=== PATIENT | male | born 1945 | race Caucasian/White ===

== ENCOUNTER 2016-08-02 08:12 | Emergency (ER) | payer MEDICARE, MEDICAID ==
[2016-08-02] MEDS ORDERED: Aspirin Low Dose CHEW TAB* 81 MG PO ONE (08:42)
--- NOTE | 2016-08-02 09:07 | RAD ---
INDICATION: Chest pain COMPARISON: Most recent comparison chest x-rays July 01, 2016 TECHNIQUE: Single AP portable view of the chest was obtained. FINDINGS: Image quality is compromised due to the relative inferiority of a portable chest x-ray. The heart and mediastinum exhibit normal size and contour. Similar the previous chest x-ray hyperaerated. There is persistent patient and hemidiaphragm. Elsewhere the lungs are grossly clear. Small amount of right-sided costophrenic angle blunting could represent a small pleural effusion. Visualized bones are normal for the patient's age. IMPRESSION: Chronic findings as described above except for new right-sided costophrenic angle blunting which could represent a small pleural effusion.
[2016-08-02 09:17] LABS: Hematocrit 41 % (42-52); Hemoglobin 13.5 g/dl (14.0-18.0); Mean Corpuscular HGB Conc 33 g/dl (31-36); Mean Corpuscular Hemoglobin 31 pg (27-31); Mean Corpuscular Volume 93 fL (80-94); Mean Platelet Volume 7 um3 (7.4-10.4); Red Blood Count 4.38 10^6/ul (4.0-5.4); Red Cell Distribution Width 13 % (10.5-15)
[2016-08-02 09:47] LABS: Troponin I 0.01 ng/mL (<0.04)
[2016-08-02 09:48] LABS: Albumin 3.4 g/dL (3.2-5.2); Calcium 8.9 mg/dL (8.6-10.3); Globulin 2.6 g/dL (2-4); Potassium 4.2 mmol/L (3.5-5.0); Total Bilirubin 0.3 mg/dL (0.2-1.0)
[2016-08-02 09:55] LABS: TSH (Thyroid Stimulating Horm) 2.72 mcIU/mL (0.34-5.60)
[2016-08-02] MEDS ORDERED: NS 0.9% 1000 ML* 2,000 ML IV ONE (10:15)
[2016-08-02 10:40] LABS: EGFR African American 88.4 (>60); EGFR Non-African American 68.7 (>60)
[2016-08-02 11:01] VITALS: BP 133/73
[2016-08-02] MEDS ORDERED: NS 0.9% 1000 ML* 1,000 ML IV ONE (13:26)
[2016-08-02 14:36] LABS: Urine Bilirubin Negative (Negative); Urine Glucose Negative (Negative); Urine Nitrite Negative (Negative)
--- NOTE | 2016-08-02 15:04 | ED ---
Quentin Talbert Karl, scribed for Dorian Garcia MD on 08/02/16 at 0837 . Complex/Multi-Sys Presentation - HPI Summary HPI Summary: Pt is a 65 y/o male BIBA that presents to the ED c/o epigastric/CP that causes him to feel a near-syncopal sensation for the past several days. Pt also reported numbness and tingling in his face, generalized weakness, instability for several weeks. Pt reported the pain as a tightness/pressure in his chest and also stated that he has been unstable/not walking straight for past few weeks. Pt stated that yesterday he felt nauseas and was sweating but these symptoms have since subsided. Pt denied any current nausea and denied any SOB, cough, urinary symptoms, problems with BM's, and appetite changes. - History Of Current Complaint Time Seen by Provider: 08/02/16 08:22 Hx Obtained From: Patient Onset/Duration: Gradual Onset, Lasting Weeks Timing: Intermittent, Lasting: Severity Currently: Moderate - abd pain at 6/10 Severity Initially: Moderate Location: Pain At: - epigastrium of abd Character: Pressure Associated Signs And Symptoms: Positive: Weakness, Chest Pain, Nausea, Abdominal Pain, Diaphoresis. Negative: SOB, Cough, Decreased Oral Intake - Allergies/Home Medications Allergies/Adverse Reactions: Allergies Allergy/AdvReac Type Severity Reaction Status Date / Time Codeine Allergy Unknown Verified 03/08/16 10:20 Reaction Details Ibuprofen Allergy Unknown Verified 03/08/16 10:20 Reaction Details Morphine Allergy Unknown Verified 03/08/16 10:20 Reaction Details Rosuvastatin [From Crestor] Allergy Unknown Verified 03/08/16 10:20 Reaction Details PMH/Surg Hx/FS Hx/Imm Hx Endocrine/Hematology History: Denies: Hx Diabetes Cardiovascular History: Reports: Hx Angina, Hx Hypertension Denies: Hx Congestive Heart Failure GI History: Reports: Hx Hiatal Hernia History: Denies: Hx Dialysis, Hx Renal Disease Musculoskeletal History: Reports: Hx Arthritis Sensory History: Reports: Hx Contacts or Glasses Opthamlomology History: Reports: Hx Contacts or Glasses Neurological History: Reports: Hx Developmental Delay Psychiatric History: Reports: Hx Anxiety - Immunization History Date of Tetanus Vaccine: up to date - Family History Known Family History: Positive: Cardiac Disease Negative: Hypertension, Diabetes - Social History Alcohol Use: None Hx Substance Use: No Substance Use Type: Reports: None Hx Tobacco Use: Yes Smoking Status (MU): Former Smoker Review of Systems Positive: Skin Diaphoresis Eyes: Negative ENT: Negative Positive: Chest Pain Negative: Shortness Of Breath, Cough Positive: Abdominal Pain, Nausea Positive: no symptoms reported Musculoskeletal: Negative Skin: Negative Positive: Weakness, Paresthesia, Numbness Positive: Anxious All Other Systems Reviewed And Are Negative: Yes Physical Exam Triage Information Reviewed: Yes Vital Signs On Initial Exam: Initial Vitals Temp Pulse Resp BP Pulse Ox 97.2 F 130 15 117/74 97 08/02/16 08:45 08/02/16 08:45 08/02/16 08:45 08/02/16 08:45 08/02/16 08:45 Appearance: Positive: Well-Appearing, No Pain Distress Skin: Positive: Warm, Skin Color Reflects Adequate Perfusion, Dry Head/Face: Positive: Normal Head/Face Inspection Eyes: Positive: Normal ENT: Positive: Normal ENT inspection Neck: Positive: Supple, Nontender Respiratory/Lung Sounds: Positive: Clear to Auscultation, Breath Sounds Present Cardiovascular: Positive: Tachycardia - at 130 bpm Abdomen Description: Positive: Nontender, Soft Bowel Sounds: Positive: Present Musculoskeletal: Positive: Normal Neurological: Positive: Normal Psychiatric: Positive: Anxious Diagnostics - Vital Signs Vital Signs Temp Pulse Resp BP Pulse Ox 08/02/16 10:59 114 10 133/73 98 08/02/16 08:45 97.2 F 130 15 117/74 97 - Laboratory Lab Results: Lab Results 08/02/16 08/02/16 08/02/16 Range/Units 09:06 09:06 09:06 WBC 10.0 (3.5-10.8) 10^3/ul RBC 4.38 (4.0-5.4) 10^6/ul Hgb 13.5 L (14.0-18.0) g/dl Hct 41 L (42-52) % MCV 93 (80-94) fL MCH 31 (27-31) pg MCHC 33 (31-36) g/dl RDW 13 (10.5-15) % Plt Count 217 (150-450) 10^3/ul MPV 7 L (7.4-10.4) um3 Neut % (Auto) 78.2 (38-83) % Lymph % (Auto) 11.7 L (25-47) % [place] % (Auto) 6.8 (1-9) % Eos % (Auto) 2.9 (0-6) % Baso % (Auto) 0.4 (0-2) % Absolute Neuts (auto) 7.8 H (1.5-7.7) 10^3/ul Absolute Lymphs (auto) 1.2 (1.0-4.8) 10^3/ul Absolute Monos (auto) 0.7 (0-0.8) 10^3/ul Absolute Eos (auto) 0.3 (0-0.6) 10^3/ul Absolute Basos (auto) 0 (0-0.2) 10^3/ul Absolute Nucleated RBC 0 10^3/ul Nucleated RBC % 0 INR (Anticoag Therapy) 0.92 (0.89-1.11) Sodium 137 (133-145) mmol/L Potassium 4.2 (3.5-5.0) mmol/L Chloride 105 (101-111) mmol/L Carbon Dioxide 23 (22-32) mmol/L Anion Gap 9 (2-11) mmol/L BUN 15 (6-24) mg/dL Creatinine 1.07 (0.67-1.17) mg/dL Est GFR ( Amer) 88.4 (>60) Est GFR (Non-Af Amer) 68.7 (>60) BUN/Creatinine Ratio 14.0 (8-20) Glucose 114 H (70-100) mg/dL Lactic Acid (0.5-2.0) mmol/L Calcium 8.9 (8.6-10.3) mg/dL Total Bilirubin 0.30 (0.2-1.0) mg/dL AST 21 (13-39) U/L ALT 22 (7-52) U/L Alkaline Phosphatase 73 (34-104) U/L Troponin I 0.01 (<0.04) ng/mL Total Protein 6.0 L (6.4-8.9) g/dL Albumin 3.4 (3.2-5.2) g/dL Globulin 2.6 (2-4) g/dL Albumin/Globulin Ratio 1.3 (1-3) TSH 2.72 (0.34-5.60) mcIU/mL Urine Color Urine Appearance Urine pH (5-9) Ur Specific [place] (1.010-1.030) Urine Protein (Negative) Urine Ketones (Negative) Urine Blood (Negative) Urine Nitrate (Negative) Urine Bilirubin (Negative) Urine Urobilinogen (Negative) Ur Leukocyte Esterase (Negative) Urine Glucose (Negative) Urine Ascorbic Acid (Negative) 08/02/16 08/02/16 Range/Units 09:06 14:27 WBC (3.5-10.8) 10^3/ul RBC (4.0-5.4) 10^6/ul Hgb (14.0-18.0) g/dl Hct (42-52) % MCV (80-94) fL MCH (27-31) pg MCHC (31-36) g/dl RDW (10.5-15) % Plt Count (150-450) 10^3/ul MPV (7.4-10.4) um3 Neut % (Auto) (38-83) % Lymph % (Auto) (25-47) % [place] % (Auto) (1-9) % Eos % (Auto) (0-6) % Baso % (Auto) (0-2) % Absolute Neuts (auto) (1.5-7.7) 10^3/ul Absolute Lymphs (auto) (1.0-4.8) 10^3/ul Absolute Monos (auto) (0-0.8) 10^3/ul Absolute Eos (auto) (0-0.6) 10^3/ul Absolute Basos (auto) (0-0.2) 10^3/ul Absolute Nucleated RBC 10^3/ul Nucleated RBC % INR (Anticoag Therapy) (0.89-1.11) Sodium (133-145) mmol/L Potassium (3.5-5.0) mmol/L Chloride (101-111) mmol/L Carbon Dioxide (22-32) mmol/L Anion Gap (2-11) mmol/L BUN (6-24) mg/dL Creatinine (0.67-1.17) mg/dL Est GFR ( Amer) (>60) Est GFR (Non-Af Amer) (>60) BUN/Creatinine Ratio (8-20) Glucose (70-100) mg/dL Lactic Acid 1.8 (0.5-2.0) mmol/L Calcium (8.6-10.3) mg/dL Total Bilirubin (0.2-1.0) mg/dL AST (13-39) U/L ALT (7-52) U/L Alkaline Phosphatase (34-104) U/L Troponin I (<0.04) ng/mL Total Protein (6.4-8.9) g/dL Albumin (3.2-5.2) g/dL Globulin (2-4) g/dL Albumin/Globulin Ratio (1-3) TSH (0.34-5.60) mcIU/mL Urine Color Yellow Urine Appearance Cloudy Urine pH 5.0 (5-9) Ur Specific [place] 1.008 L (1.010-1.030) Urine Protein Negative (Negative) Urine Ketones Negative (Negative) Urine Blood Negative (Negative) Urine Nitrate Negative (Negative) Urine Bilirubin Negative (Negative) Urine Urobilinogen Negative (Negative) Ur Leukocyte Esterase Negative (Negative) Urine Glucose Negative (Negative) Urine Ascorbic Acid * H (Negative) Result Diagrams: 08/02/16 09:06 08/02/16 09:06 Lab Statement: Any lab studies that have been ordered have been reviewed, and results considered in the medical decision making process. - Radiology CXR Xray Interpretation: Positive (See Comments) Radiology Interpretation Completed By: Radiologist - FINDINGS: Image quality is compromised due to the relative inferiority of a portable chest x-ray. The heart and mediastinum exhibit normal size and contour. Similar the previous chest x-ray hyperaerated. There is persistent patient and hemidiaphragm. Elsewhere the lungs are grossly clear. Small amount of right-sided costophrenic angle blunting could represent a small pleural effusion. Visualized bones are normal for the patient's age. IMPRESSION: Chronic findings as described above except for new right-sided costophrenic angle blunting which could represent a small pleural effusion. - EKG 08:41 Cardiac Rate: Tachycardia EKG Rhythm: Sinus Tachycardia - at 122 bpm Complex Multi-Symp Course/Dx Course Of Treatment: Mr. Gasca is very vague about his symptoms. At times he C/ O a chest pain like syndrome and at other times he C/O wandering numbness or vague dizziness. He felt very improved after IV fluids. He presented tachycardic at about 125. He says he normally runs about 110. His tachycardia improved mostly also with fluids. I think he is stable for D/C if his repeat troponin is negative. - Diagnoses Provider Diagnoses: Weakness - Physician Notifications Discussed Care Of Patient With: Dr. Llamas Time Discussed With Above Provider: 15:00 - Change of shift Discharge - Discharge Plan Condition: Stable Disposition: HOME The documentation as recorded by the Quentin turner Karl accurately reflects the service I personally performed and the decisions made by me, Dorian Garcia MD.
== END 2016-08-02 16:32 | disposition home or self-care (01) ==
LOC: ED 08:12
DX: R53.1 Weakness (principal); Z87.891 Personal history of nicotine dependence; I20.9 Angina pectoris, unspecified; R62.50 Unspecified lack of expected normal physiological development in childhood; F41.9 Anxiety disorder, unspecified; Z88.5 Allergy status to narcotic agent
CPT/HCPCS: 36415; 71010; 80053; 81003; 83605; 84443; 84484; 85025; 85610; 93005; 99282; A9270-GY

== ENCOUNTER 2016-08-04 07:19 | Emergency (ER) | payer MEDICARE, MEDICAID ==
[2016-08-04] MEDS ORDERED: NS 0.9% 1000 ML* 2,000 ML IV ONE (07:59)
[2016-08-04] MEDS ORDERED: Aspirin TAB* 325 MG PO ONE (07:59)
[2016-08-04 08:24] LABS: Hematocrit 38 % (42-52); Hemoglobin 12.5 g/dl (14.0-18.0); Mean Corpuscular HGB Conc 33 g/dl (31-36); Mean Corpuscular Hemoglobin 31 pg (27-31); Mean Corpuscular Volume 92 fL (80-94); Mean Platelet Volume 7 um3 (7.4-10.4); Red Blood Count 4.08 10^6/ul (4.0-5.4); Red Cell Distribution Width 13 % (10.5-15); White Blood Count 8.4 10^3/ul (3.5-10.8)
--- NOTE | 2016-08-04 08:37 | RAD ---
HISTORY: Right leg swelling COMPARISONS: None relevant TECHNIQUE: Multiple transverse and longitudinal ultrasound images were obtained of the right lower extremity from the level of the common femoral vein inferiorly through to the infrapopliteal veins using grayscale, color Doppler, and spectral Doppler imaging with and without compression and with augmentation. Comparison images were obtained of the contralateral common femoral vein. FINDINGS: VEINS: The venous system of the right lower extremity is compressible throughout its course, with normal flow on color Doppler imaging and normal response to augmentation on spectral Doppler imaging. SOFT TISSUES: Unremarkable. OTHER FINDINGS: None. IMPRESSION: NO RIGHT LOWER EXTREMITY DEEP VEIN THROMBOSIS
[2016-08-04 08:41] LABS: Albumin 3.3 g/dL (3.2-5.2); BUN/Creatinine Ratio 11.5 (8-20); C Reactive Protein 2.63 mg/L (< 5.00); Calcium 8.6 mg/dL (8.6-10.3); EGFR African American 100.2 (>60); EGFR Non-African American 77.9 (>60); Globulin 2.1 g/dL (2-4); HDL Cholesterol 42.8 mg/dL; Potassium 4.2 mmol/L (3.5-5.0); Total Bilirubin 0.3 mg/dL (0.2-1.0); Total Protein 5.4 g/dL (6.4-8.9); Troponin I 0.01 ng/mL (<0.04)
--- NOTE | 2016-08-04 09:07 | RAD ---
HISTORY: CHF, pneumonia COMPARISONS: 08/02/2016 VIEWS:1: Single frontal portable view of the chest at 8:42 AM FINDINGS: LINES AND TUBES: None. CARDIOMEDIASTINAL SILHOUETTE: The cardiomediastinal silhouette is normal for portable technique. PLEURA: The costophrenic angles are sharp. No pleural abnormalities are noted. LUNG PARENCHYMA: The lungs are clear. ABDOMEN: The upper abdomen is clear. There is no subphrenic gas. BONES AND SOFT TISSUES: Degenerative changes are noted IMPRESSION: NO ACTIVE CARDIOPULMONARY DISEASE.
--- NOTE | 2016-08-04 09:08 | RAD ---
HISTORY: Fall, right knee swelling COMPARISONS: None VIEWS: 5, Frontal, lateral, axial, and oblique views of the right knee FINDINGS: BONE DENSITY: Normal. BONES: There is no displaced fracture. JOINTS: There is mild tricompartmental osteoarthritis. There is no suprapatellar joint effusion or lipohemarthrosis. ALIGNMENT: There is no dislocation. SOFT TISSUES: Unremarkable. OTHER FINDINGS: None. IMPRESSION: NO ACUTE OSSEOUS INJURY. IF SYMPTOMS PERSIST, RECOMMEND REPEAT IMAGING.
--- NOTE | 2016-08-04 09:18 | RAD ---
HISTORY: Right-sided numbness and slurred speech COMPARISONS: None TECHNIQUE: Multiple contiguous axial CT scans were obtained of the head without intravenous contrast. FINDINGS: HEMORRHAGE/INFARCT: There is no hemorrhage or acute infarct. MASSES/SHIFT: There is no mass or shift. EXTRA-AXIAL SPACES: There are no extra-axial fluid collections. SULCI AND VENTRICLES: The sulci and ventricles are normal in size and position for the patient's stated age. CEREBRUM: There are no focal parenchymal abnormalities. BRAINSTEM: There are no focal parenchymal abnormalities. CEREBELLUM: There are no focal parenchymal abnormalities. VESSELS: The vessels are grossly normal. PARANASAL SINUSES: The paranasal sinuses are clear. ORBITS: The orbits are unremarkable. BONES AND SOFT TISSUE: No bone or soft tissue abnormalities are noted. OTHER: None IMPRESSION: NO ACUTE INTRACRANIAL PATHOLOGY.
--- NOTE | 2016-08-04 09:21 | RAD ---
HISTORY: Right upper arm pain COMPARISONS: None VIEWS: 3, Frontal and lateral views of the right forearm FINDINGS: BONE DENSITY: There is diffuse osteopenia. BONES: There is no displaced fracture. JOINTS: There is osteoarthritis of the first ALIGNMENT: There is no dislocation. SOFT TISSUES: Unremarkable. OTHER FINDINGS: None. IMPRESSION: 1. OSTEOPENIA. 2. NO ACUTE OSSEOUS INJURY. THE DEGREE OF OSTEOPENIA MAY MAKE A NONDISPLACED FRACTURE RADIOGRAPHICALLY OCCULT. IF SYMPTOMS PERSIST, RECOMMEND REPEAT IMAGING.
--- NOTE | 2016-08-04 09:29 | RAD ---
Indication: Right arm pain. 2 views of the right upper arm demonstrates no fracture. Degenerative changes of the glenohumeral joint is noted. IMPRESSION: No definite humeral fracture is identified.
[2016-08-04 11:16] VITALS: BP 143/85
--- NOTE | 2016-08-04 11:45 | ED ---
Tatiana Talbert SooYoung, scribed for Sergio Freitas MD on 08/04/16 at 0743 . Complex/Multi-Sys Presentation - HPI Summary HPI Summary: A 70 y/o M VIRAL presents to ED with c/o RLE edema below knee onset yesterday 2099. He fell onto his knee two to three days ago and scraped it. Associated sx : general R-sided numbness, pain in RUE around bicep that radiates to hand as numbness, L facial numbness. He notes that he's been "slumped over" on his R side for the past few weeks. Denies numbness in L-side and L arm. Denies leg pain, abd pain, ZHAO, CP, SOB, fever, chills, n/v/d, difficulty finding words, dysphagia. Pt was seen in ED 2 days ago for similar sx. Pt is not on a blood thinner, former smoker, no EtOH, no drugs. Known hernia. Baseline speech slurring. Pt is scheduled to see Dr. Fong in August. Pt ambulates on his own. - History Of Current Complaint Time Seen by Provider: 08/04/16 07:20 Hx Obtained From: Patient, EMS, Medical Records Onset/Duration: Lasting Hours - ONSET 2099, Still Present Timing: Constant, Days - seen in ED two days ago for similar sx - Allergies/Home Medications Allergies/Adverse Reactions: Allergies Allergy/AdvReac Type Severity Reaction Status Date / Time Codeine Allergy Unknown Verified 03/08/16 10:20 Reaction Details Ibuprofen Allergy Unknown Verified 03/08/16 10:20 Reaction Details Morphine Allergy Unknown Verified 03/08/16 10:20 Reaction Details Rosuvastatin [From Crestor] Allergy Unknown Verified 03/08/16 10:20 Reaction Details PMH/Surg Hx/FS Hx/Imm Hx Previously Healthy: No Endocrine/Hematology History: Denies: Hx Diabetes Cardiovascular History: Reports: Hx Angina, Hx Hypertension Denies: Hx Congestive Heart Failure GI History: Reports: Hx Hiatal Hernia History: Denies: Hx Dialysis, Hx Renal Disease Musculoskeletal History: Reports: Hx Arthritis Sensory History: Reports: Hx Contacts or Glasses Opthamlomology History: Reports: Hx Contacts or Glasses Neurological History: Reports: Hx Developmental Delay Psychiatric History: Reports: Hx Anxiety - Immunization History Date of Tetanus Vaccine: up to date Infectious Disease History: Denies: Traveled Outside the [place] in Last 30 Days - Family History Known Family History: Positive: Cardiac Disease Negative: Hypertension, Diabetes - Social History Occupation: Retired Lives: Alone Alcohol Use: None Hx Substance Use: No Substance Use Type: Reports: None Hx Tobacco Use: Yes Smoking Status (MU): Former Smoker Review of Systems Negative: Fever, Chills Positive: Other - neg: dysphagia Negative: Chest Pain Negative: Shortness Of Breath Negative: Abdominal Pain, Vomiting, Diarrhea, Nausea Positive: Other - pos: upper R arm pain; neg: leg pain Neurological: Other - neg: difficulty finding words Positive: Numbness - pos: R-side, R hand, L face, ; neg: L-side, L-arm. Negative: Headache All Other Systems Reviewed And Are Negative: Yes Physical Exam Triage Information Reviewed: Yes Vital Signs On Initial Exam: Initial Vitals BP 121/85 08/04/16 07:23 Vital Signs Reviewed: Yes Appearance: Positive: Well-Appearing, No Pain Distress, Well-Nourished Skin: Positive: Warm, Skin Color Reflects Adequate Perfusion, Dry Head/Face: Positive: Normal Head/Face Inspection - The head is normocephalic and atraumatic Eyes: Positive: EOMI, MADDY, Conjunctiva Clear, Other: - NML VISUAL ACUITY. Negative: Discharge ENT: Positive: Normal ENT inspection - nares patent, moist oral mucosa, external ears intact, ear canals patent and without drainage, Pharynx normal - no exudate, no erythema, TMs normal. Negative: Nasal drainage Neck: Positive: Supple, Nontender, Other: - FROM, no carotid bruits, no neck vein distension Respiratory/Lung Sounds: Positive: Clear to Auscultation, Breath Sounds Present - and equal and symmetrical, Other - chest non-tender Cardiovascular: Positive: Pulses are Symmetrical in both Upper and Lower Extremities, Tachycardia - SINUS TACHY, regular rhythm, Leg Edema Left - PITTING EDEMA, Leg Edema Right - PITTING EDEMA. Negative: Murmur, Rub Abdomen Description: Positive: Nontender, No Organomegaly, Soft Bowel Sounds: Positive: Present - in all four quadrant Musculoskeletal: Positive: Normal - good capillary refill, no back pain noted, no calf tenderness, Strength/ROM Intact - extremities non-tender with FROM, Edema Left - pitting edema, Edema Right - pitting edema, Other - ABRASION TO R KNEE; R KNEE WARM; GOOD PULSES DISTALLY; NO EFFUSION NOTED Neurological: Positive: Normal - symmetrical motor strength in all four extremities., Sensory/Motor Intact, Alert, Oriented to Person Place, Time, CN Intact II-III - CN II-XII INTACT, Reflexes Intact - DTR in all 4 extremities intact, Other - NEG: LE DRIFT. Negative: Babinski Left, Babinski Right, Babinski Bilateral, Heel to Toe, Finger to Nose, Pronator Drift Present Psychiatric: Positive: Affect/Mood Appropriate. Negative: Anxious, Depressed Diagnostics - Vital Signs Vital Signs Temp Pulse Resp BP Pulse Ox 08/04/16 11:00 104 16 143/85 98 08/04/16 10:50 121 19 151/97 98 08/04/16 10:30 112 20 126/75 98 08/04/16 10:22 118 21 146/84 97 08/04/16 10:00 103 17 98 08/04/16 09:38 111 21 97 08/04/16 09:25 103 18 99 08/04/16 08:00 114 20 97 08/04/16 07:59 98 08/04/16 07:34 97.7 F 111 20 120/78 96 08/04/16 07:30 113 16 120/78 98 08/04/16 07:24 113 19 98 08/04/16 07:23 121/85 - Laboratory Lab Results: Lab Results 08/04/16 08/04/16 08/04/16 Range/Units 08:15 08:15 08:15 WBC 8.4 (3.5-10.8) 10^3/ul RBC 4.08 (4.0-5.4) 10^6/ul Hgb 12.5 L (14.0-18.0) g/dl Hct 38 L (42-52) % MCV 92 (80-94) fL MCH 31 (27-31) pg MCHC 33 (31-36) g/dl RDW 13 (10.5-15) % Plt Count 205 (150-450) 10^3/ul MPV 7 L (7.4-10.4) um3 Neut % (Auto) 74.2 (38-83) % Lymph % (Auto) 14.5 L (25-47) % Hickman % (Auto) 6.2 (1-9) % Eos % (Auto) 4.4 (0-6) % Baso % (Auto) 0.7 (0-2) % Absolute Neuts (auto) 6.2 (1.5-7.7) 10^3/ul Absolute Lymphs (auto) 1.2 (1.0-4.8) 10^3/ul Absolute Monos (auto) 0.5 (0-0.8) 10^3/ul Absolute Eos (auto) 0.4 (0-0.6) 10^3/ul Absolute Basos (auto) 0.1 (0-0.2) 10^3/ul Absolute Nucleated RBC 0 10^3/ul Nucleated RBC % 0 INR (Anticoag Therapy) 0.94 (0.89-1.11) Sodium 137 (133-145) mmol/L Potassium 4.2 (3.5-5.0) mmol/L Chloride 106 (101-111) mmol/L Carbon Dioxide 24 (22-32) mmol/L Anion Gap 7 (2-11) mmol/L BUN 11 (6-24) mg/dL Creatinine 0.96 (0.67-1.17) mg/dL Est GFR ( Amer) 100.2 (>60) Est GFR (Non-Af Amer) 77.9 (>60) BUN/Creatinine Ratio 11.5 (8-20) Glucose 116 H (70-100) mg/dL Lactic Acid (0.5-2.0) mmol/L Calcium 8.6 (8.6-10.3) mg/dL Total Bilirubin 0.30 (0.2-1.0) mg/dL AST 23 (13-39) U/L ALT 21 (7-52) U/L Alkaline Phosphatase 68 (34-104) U/L Troponin I 0.01 (<0.04) ng/mL C-Reactive Protein 2.63 (< 5.00) mg/L B-Natriuretic Peptide ( - 100) pg/mL Total Protein 5.4 L (6.4-8.9) g/dL Albumin 3.3 (3.2-5.2) g/dL Globulin 2.1 (2-4) g/dL Albumin/Globulin Ratio 1.6 (1-3) Triglycerides 93 mg/dL Cholesterol 169 mg/dL LDL Cholesterol 108 mg/dL HDL Cholesterol 42.8 mg/dL 08/04/16 08/04/16 Range/Units 08:15 08:15 WBC (3.5-10.8) 10^3/ul RBC (4.0-5.4) 10^6/ul Hgb (14.0-18.0) g/dl Hct (42-52) % MCV (80-94) fL MCH (27-31) pg MCHC (31-36) g/dl RDW (10.5-15) % Plt Count (150-450) 10^3/ul MPV (7.4-10.4) um3 Neut % (Auto) (38-83) % Lymph % (Auto) (25-47) % Hickman % (Auto) (1-9) % Eos % (Auto) (0-6) % Baso % (Auto) (0-2) % Absolute Neuts (auto) (1.5-7.7) 10^3/ul Absolute Lymphs (auto) (1.0-4.8) 10^3/ul Absolute Monos (auto) (0-0.8) 10^3/ul Absolute Eos (auto) (0-0.6) 10^3/ul Absolute Basos (auto) (0-0.2) 10^3/ul Absolute Nucleated RBC 10^3/ul Nucleated RBC % INR (Anticoag Therapy) (0.89-1.11) Sodium (133-145) mmol/L Potassium (3.5-5.0) mmol/L Chloride (101-111) mmol/L Carbon Dioxide (22-32) mmol/L Anion Gap (2-11) mmol/L BUN (6-24) mg/dL Creatinine (0.67-1.17) mg/dL Est GFR ( Amer) (>60) Est GFR (Non-Af Amer) (>60) BUN/Creatinine Ratio (8-20) Glucose (70-100) mg/dL Lactic Acid 1.8 (0.5-2.0) mmol/L Calcium (8.6-10.3) mg/dL Total Bilirubin (0.2-1.0) mg/dL AST (13-39) U/L ALT (7-52) U/L Alkaline Phosphatase (34-104) U/L Troponin I (<0.04) ng/mL C-Reactive Protein (< 5.00) mg/L B-Natriuretic Peptide 10 ( - 100) pg/mL Total Protein (6.4-8.9) g/dL Albumin (3.2-5.2) g/dL Globulin (2-4) g/dL Albumin/Globulin Ratio (1-3) Triglycerides mg/dL Cholesterol mg/dL LDL Cholesterol mg/dL HDL Cholesterol mg/dL Result Diagrams: 08/04/16 08:15 08/04/16 08:15 Lab Statement: Any lab studies that have been ordered have been reviewed, and results considered in the medical decision making process. - Radiology CXR Xray Interpretation: No Acute Changes - IMPRESSION: NO ACTIVE CARDIOPULMONARY DZ Radiology Interpretation Completed By: Radiologist KNEE XR Xray Interpretation: No Acute Changes - IMPRESSION: NO ACUTE OSSEOUS INJURY. IF SYMPTOMS PERSIST, RECOMMEND REPEAT INJURING Radiology Interpretation Completed By: Radiologist R FOREARM XR Xray Interpretation: Positive (See Comments) - IMPRESSION: 1. OSTEOPENIA. 2. NO ACUTE OSSEOUS INJURY. THE DEGREE OF OSTEPENIA MAY MAKE A NONDISPLACED FRACTURE RADIOGRAPHICALLY OCCULT. IF SYMPTOMS PERSIST, RECOMMEND REPEAT IMAGING. Radiology Interpretation Completed By: Radiologist R HUMERUS XR Xray Interpretation: No Acute Changes - IMPRESSION: NO DEFINITE HUMERAL FRACTURE IS IDENTIFIED. Radiology Interpretation Completed By: Radiologist - CT BRAIN CT CT Interpretation: No Acute Changes - IMPRESSION: NO ACUTE INTRACRANIAL PATHOLOGY. 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 Non-Paretic Hand: Both Correctly Best Gaze (Only Horizontal Eye Movement): Normal Visual Field Testing: No Visual Loss Facial Paresis-Pt to Smile & Close Eyes or Grimace Symmetry: Normal/Symmetrical Motor Function - Right Arm: No Drift-Holds 10 Seconds Motor Function - Left Arm: No Drift-Holds 10 Seconds Motor Function - Right Leg: No Drift-Holds 10 Seconds Motor Function - Left Leg: No Drift-Holds 10 Seconds Limb Ataxia-Must be out of Proportion to Weakness Present: Absent Sensory (Use Pinprick to Test Arms/Legs/Trunk/Face): Normal Best Language (Describe Picture, Name Items): Some Loss Dysarthria (Read Several Words): Slurs Some Words Extinction and Inattention: No Abnormality Total Score: 2 Re-Evaluation - Re-Evaluation 1 Re-Evaluation Time: 10:47 Comment: Discussing diagnostic results with pt. Complex Multi-Symp Course/Dx - Diagnoses Differential Diagnoses/HQI/PQRI: Cardiac Ischemia, CVA, Metabolic Abnormality, Other - chf, dvt, knee fracture, arm trauma, anxiety, mi Provider Diagnoses: Leg swelling, Contusion of right knee, Anxiety Discharge - Discharge Plan Condition: Stable Disposition: HOME Patient Education Materials: Leg Edema (ED) Referrals: Liam Patel MD [Primary Care Provider] - 1 Week Additional Instructions: Elevate your right leg. Follow up with Dr. Patel within the week. Please return to Emergency Department for new or worsening symptoms. The documentation as recorded by the Tatiana turner SooYoung accurately reflects the service I personally performed and the decisions made by , Sergio Freitas MD.
== END 2016-08-04 11:18 | disposition home or self-care (01) ==
LOC: ED 07:19
DX: M79.89 Other specified soft tissue disorders (principal); S80.01XA Contusion of right knee, initial encounter; W19.XXXA Unspecified fall, initial encounter; Y93.9 Activity, unspecified; Y92.9 Unspecified place or not applicable; Y99.9 Unspecified external cause status; F41.9 Anxiety disorder, unspecified; M79.601 Pain in right arm; R20.0 Anesthesia of skin; Z88.9 Allergy status to unspecified drugs, medicaments and biological substances
CPT/HCPCS: 36415; 70450; 71010; 80053; 80061; 83605; 83880; 84484; 85025; 85610; 86140; 93005; 96360; 99283

== ENCOUNTER 2016-08-24 07:22 | Emergency (ER) | payer MEDICARE, MEDICAID ==
[2016-08-24] MEDS ORDERED: NS 0.9% 1000 ML* 2,000 ML IV ONE (08:12)
[2016-08-24 08:34] LABS: Hematocrit 38 % (42-52); Hemoglobin 12.4 g/dl (14.0-18.0); Mean Corpuscular HGB Conc 33 g/dl (31-36); Mean Corpuscular Hemoglobin 31 pg (27-31); Mean Corpuscular Volume 93 fL (80-94); Mean Platelet Volume 7 um3 (7.4-10.4); Red Blood Count 4.04 10^6/ul (4.0-5.4); Red Cell Distribution Width 14 % (10.5-15); White Blood Count 7.8 10^3/ul (3.5-10.8)
[2016-08-24 08:50] LABS: Albumin 3.2 g/dL (3.2-5.2); BUN/Creatinine Ratio 9.4 (8-20); C Reactive Protein 9.87 mg/L (< 5.00); Calcium 8.6 mg/dL (8.6-10.3); EGFR African American 100.2 (>60); EGFR Non-African American 77.9 (>60); Globulin 2.4 g/dL (2-4); Magnesium 1.9 mg/dL (1.9-2.7); Total Bilirubin 0.3 mg/dL (0.2-1.0); Total Protein 5.6 g/dL (6.4-8.9)
[2016-08-24 08:51] LABS: Troponin I 0.01 ng/mL (<0.04)
--- NOTE | 2016-08-24 09:03 | RAD ---
HISTORY: Swollen right lower extremity COMPARISONS: August 04, 2016 TECHNIQUE: Multiple transverse and longitudinal ultrasound images were obtained of the right lower extremity from the level of the common femoral vein inferiorly through to the infrapopliteal veins using grayscale, color Doppler, and spectral Doppler imaging with and without compression and with augmentation. Comparison images were obtained of the contralateral common femoral vein. FINDINGS: VEINS: The venous system of the right lower extremity is compressible throughout its course, with normal flow on color Doppler imaging and normal response to augmentation on spectral Doppler imaging. SOFT TISSUES: There is soft tissue edema of the distal lower extremity OTHER FINDINGS: None. IMPRESSION: NO RIGHT LOWER EXTREMITY DEEP VEIN THROMBOSIS
[2016-08-24 09:21] LABS: TSH (Thyroid Stimulating Horm) 6.3 mcIU/mL (0.34-5.60)
--- NOTE | 2016-08-24 09:47 | RAD ---
HISTORY: Right arm pain, subacute trauma COMPARISONS: January 27, 2015 VIEWS: 3, Frontal internal rotation, external rotation, and outlet views of the right shoulder FINDINGS: BONE DENSITY: There is diffuse osteopenia. BONES: There is no displaced fracture. JOINTS: There is advanced osteoarthritis of the glenohumeral articulation. There is mild osteoarthritis of the AC joint. ALIGNMENT: There is no dislocation. SOFT TISSUES: Unremarkable. OTHER FINDINGS: None. IMPRESSION: 1. OSTEOPENIA. 2. ADVANCED OSTEOARTHRITIS. 3. NO ACUTE OSSEOUS INJURY. THE DEGREE OF OSTEOPENIA MAY MAKE A NONDISPLACED FRACTURE RADIOGRAPHICALLY OCCULT. IF SYMPTOMS PERSIST, RECOMMEND REPEAT IMAGING.
--- NOTE | 2016-08-24 09:48 | RAD ---
INDICATION: Right elbow injury. TECHNIQUE: 4 views of the right elbow were obtained. FINDINGS: The bones are in normal alignment. No joint effusion or fracture is seen. Joint spaces appear maintained. IMPRESSION: NO EVIDENCE FOR FRACTURE.
--- NOTE | 2016-08-24 09:48 | RAD ---
HISTORY: Right arm pain, subacute trauma COMPARISONS: August 04, 2016 VIEWS: 2, Frontal internal rotation and external rotation views of the right upper arm FINDINGS: BONE DENSITY: There is diffuse osteopenia. BONES: There is no displaced fracture. JOINTS: There is advanced osteoarthritis of the shoulder ALIGNMENT: There is no dislocation. SOFT TISSUES: Unremarkable. OTHER FINDINGS: None. IMPRESSION: 1. OSTEOPENIA. 2. OSTEOARTHRITIS. 3. NO ACUTE OSSEOUS INJURY. THE DEGREE OF OSTEOPENIA MAY MAKE A NONDISPLACED FRACTURE RADIOGRAPHICALLY OCCULT. IF SYMPTOMS PERSIST, RECOMMEND REPEAT IMAGING..
--- NOTE | 2016-08-24 09:50 | RAD ---
INDICATION: Right forearm injury. TECHNIQUE: 2 views of the right forearm were obtained. FINDINGS: The bones are in normal alignment. No fracture is seen. IMPRESSION: NO EVIDENCE FOR FRACTURE.
--- NOTE | 2016-08-24 09:54 | RAD ---
INDICATION: Right wrist injury. TECHNIQUE: 3 views of the right wrist were obtained. FINDINGS: The bones are osteopenic. No fracture is seen. There is proximal migration of the capitate bone and mild increased space between the scaphoid and lunate bone possibly indicating a scapholunate ligament tear. There is abnormal dorsal tilting of the lunate bone. There is moderate to severe arthritic change in the scaphotrapezial and first carpometacarpal joints. IMPRESSION: 1. NO EVIDENCE FOR ACUTE FRACTURE. 2. 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 THIS COULD BE FURTHER EVALUATED WITH AN MRI OF THE WRIST IF CLINICALLY NEEDED. 3. MODERATE TO SEVERE OSTEOARTHRITIC CHANGE.
--- NOTE | 2016-08-24 09:56 | RAD ---
INDICATION: Fall about one month ago. Edema in the lower extremities and feet. COMPARISON: August 02, 2016 TECHNIQUE: Sitting AP and lateral chest views. REPORT: Asymmetry in positioning with RIGHT arm up and LEFT arm down. Chronic mild to moderate elevation of the RIGHT hemidiaphragm. Attenuation of the pulmonary markings without gross change consistent with emphysema. Small dependent RIGHT pleural effusion versus chronic pleural parenchymal scarring. Elevated lung volumes. Negative for cardiomegaly. Large retrocardiac hiatal hernia based on correlation with March 08, 2016 CT. Bone density appears decreased throughout. No fractures evident. IMPRESSION: Stigmata of emphysema. Small dependent RIGHT pleural effusion versus chronic pleural parenchymal scarring. Large retrocardiac hiatal hernia. No evidence for pneumonia or pulmonary edema.
--- NOTE | 2016-08-24 11:23 | ED ---
Jose C Talbert Matthew, scribed for Sergio Freitas MD on 08/24/16 at 0805 . Complex/Multi-Sys Presentation - HPI Summary HPI Summary: A 70 y/o male presents to the ED with constant, gradually worsening bilateral LE edema since 2 days ago. The patient states that the pedal edema is worse on the right as compared to the left. He's also c/o of tingling in the hands bilaterally, diffuse numbness throughout his extremities and face, right arm pain, right elbow pain, and lower back pain that worsens when bending over. He denies SOB, chest pain, leg pain, abdominal pain, and decreased appetite. - History Of Current Complaint Chief Complaint: EDWeakness Time Seen by Provider: 08/24/16 07:36 Hx Obtained From: Patient Onset/Duration: Gradual Onset, Lasting Days, Still Present Timing: Constant Severity Currently: Moderate Severity Initially: Moderate Location: Pain At: - right arm, right elbow Associated Signs And Symptoms: Positive: Edema - pedal, bilateral LE, Back Pain - lower, Other - Tingling of the hands bilaterally, right arm pain, right elbow pain, and diffuse numbness of the extremities and face.. Negative: SOB, Chest Pain, Abdominal Pain - Allergies/Home Medications Allergies/Adverse Reactions: Allergies Allergy/AdvReac Type Severity Reaction Status Date / Time Codeine Allergy Unknown Verified 08/24/16 07:29 Reaction Details Ibuprofen Allergy Unknown Verified 08/24/16 07:32 Reaction Details Morphine Allergy Unknown Verified 08/24/16 07:29 Reaction Details Rosuvastatin [From Crestor] Allergy Unknown Verified 08/24/16 07:29 Reaction Details PMH/Surg Hx/FS Hx/Imm Hx Endocrine/Hematology History: Denies: Hx Diabetes Cardiovascular History: Reports: Hx Angina, Hx Hypertension Denies: Hx Congestive Heart Failure GI History: Reports: Hx Hiatal Hernia History: Denies: Hx Dialysis, Hx Renal Disease Musculoskeletal History: Reports: Hx Arthritis Sensory History: Reports: Hx Contacts or Glasses Opthamlomology History: Reports: Hx Contacts or Glasses Neurological History: Reports: Hx Developmental Delay Psychiatric History: Reports: Hx Anxiety - Immunization History Date of Tetanus Vaccine: up to date Infectious Disease History: No Infectious Disease History: Denies: Traveled Outside the [place] in Last 30 Days - Family History Known Family History: Positive: Cardiac Disease Negative: Hypertension, Diabetes - Social History Alcohol Use: None Hx Substance Use: No Substance Use Type: Reports: None Hx Tobacco Use: Yes Smoking Status (MU): Former Smoker Review of Systems Constitutional: Negative Eyes: Negative ENT: Negative Cardiovascular: Negative Negative: Chest Pain Respiratory: Negative Negative: Shortness Of Breath Gastrointestinal: Negative Negative: Abdominal Pain Genitourinary: Negative Positive: Myalgia - right arm pain, right elbow pain, and lower back pain , Edema - pedal, bilaterally LE Skin: Negative Neurological: Other - tingling of the hands bilaterally Positive: Numbness - diffuse of the extremities Psychological: Normal All Other Systems Reviewed And Are Negative: Yes Physical Exam - Summary Physical Exam Summary: The patient is well-nourished in no acute distress and in no acute pain. The skin is warm, dry, and pale. HEENT: The head is normocephalic and atraumatic. The pupils are equal and reactive. The conjunctivae are clear and without drainage. Nares are patent and without drainage. Mouth reveals dry mucous membranes and the throat is without erythema and exudate. The external ears are intact. The ear canals are patent and without drainage. The tympanic membranes are intact. Neck is supple with full range of motion and non-tender. There are no carotid bruits. There is no neck vein distension. Respiratory: Chest is non-tender. Lungs are clear to auscultation and breath sounds are symmetrical and equal. Cardiovascular: Heart is tachycardic and regular rhythm. There is no murmur or rub auscultated. There is no peripheral edema and pulses are symmetrical and equal. Abdomen: The abdomen is soft and non-tender. There are normal bowel sounds heard in all four quadrants and there is no organomegaly palpated. Musculoskeletal: There is no back pain over the cervical, thoracic, or lumbar spine. The patient has right shoulder pain at the rotator cuff insertion region. Extremities are with full range of motion. There is 2+ capillary refill distally. There is no calf tenderness elicited. The patient has pitting edema, which is worse on the right as compared to the left. The patient is neurovascularly intact. The patient also has tenderness over the right triceps with no evidence of trauma. Neurological: Patient is alert and oriented to person, place and time. The patient has symmetrical motor strength in all four extremities. Cranial nerves are grossly intact. Deep tendon reflexes are symmetrical and equal in all four extremities. No motor weaknesses noted. The patient has a baseline speech impediment, which has not changed from previous visits. Psychiatric: The patient has an appropriate affect and does not exhibit any anxiety or depression. Triage Information Reviewed: Yes Vital Signs On Initial Exam: Initial Vitals Temp Pulse Resp BP Pulse Ox 98.1 F 121 23 135/87 98 08/24/16 07:25 08/24/16 07:25 08/24/16 07:25 08/24/16 07:25 08/24/16 07:25 Vital Signs Reviewed: Yes - Jorge Luis Coma Scale Coma Scale Total: 15 Diagnostics - Vital Signs Vital Signs Temp Pulse Resp BP Pulse Ox 08/24/16 07:25 98.1 F 121 23 135/87 98 - Laboratory Lab Results: Lab Results 08/24/16 08/24/16 08/24/16 Range/Units 08:18 08:18 08:18 WBC 7.8 (3.5-10.8) 10^3/ul RBC 4.04 (4.0-5.4) 10^6/ul Hgb 12.4 L (14.0-18.0) g/dl Hct 38 L (42-52) % MCV 93 (80-94) fL MCH 31 (27-31) pg MCHC 33 (31-36) g/dl RDW 14 (10.5-15) % Plt Count 244 (150-450) 10^3/ul MPV 7 L (7.4-10.4) um3 Neut % (Auto) 73.7 (38-83) % Lymph % (Auto) 14.1 L (25-47) % [place] % (Auto) 7.3 (1-9) % Eos % (Auto) 4.1 (0-6) % Baso % (Auto) 0.8 (0-2) % Absolute Neuts (auto) 5.7 (1.5-7.7) 10^3/ul Absolute Lymphs (auto) 1.1 (1.0-4.8) 10^3/ul Absolute Monos (auto) 0.6 (0-0.8) 10^3/ul Absolute Eos (auto) 0.3 (0-0.6) 10^3/ul Absolute Basos (auto) 0.1 (0-0.2) 10^3/ul Absolute Nucleated RBC 0 10^3/ul Nucleated RBC % 0 Sodium 137 (133-145) mmol/L Potassium Pending Chloride 106 (101-111) mmol/L Carbon Dioxide 27 (22-32) mmol/L Anion Gap Pending BUN 9 (6-24) mg/dL Creatinine 0.96 (0.67-1.17) mg/dL Est GFR ( Amer) 100.2 (>60) Est GFR (Non-Af Amer) 77.9 (>60) BUN/Creatinine Ratio 9.4 (8-20) Glucose 122 H (70-100) mg/dL Lactic Acid 1.6 (0.5-2.0) mmol/L Calcium 8.6 (8.6-10.3) mg/dL Magnesium 1.9 (1.9-2.7) mg/dL Total Bilirubin 0.30 (0.2-1.0) mg/dL AST Pending ALT 37 (7-52) U/L Alkaline Phosphatase 82 (34-104) U/L Troponin I 0.01 (<0.04) ng/mL C-Reactive Protein 9.87 H (< 5.00) mg/L B-Natriuretic Peptide ( - 100) pg/mL Total Protein 5.6 L (6.4-8.9) g/dL Albumin 3.2 (3.2-5.2) g/dL Globulin 2.4 (2-4) g/dL Albumin/Globulin Ratio 1.3 (1-3) TSH 6.30 H (0.34-5.60) mcIU/mL 08/24/16 Range/Units 08:18 WBC (3.5-10.8) 10^3/ul RBC (4.0-5.4) 10^6/ul Hgb (14.0-18.0) g/dl Hct (42-52) % MCV (80-94) fL MCH (27-31) pg MCHC (31-36) g/dl RDW (10.5-15) % Plt Count (150-450) 10^3/ul MPV (7.4-10.4) um3 Neut % (Auto) (38-83) % Lymph % (Auto) (25-47) % Swift % (Auto) (1-9) % Eos % (Auto) (0-6) % Baso % (Auto) (0-2) % Absolute Neuts (auto) (1.5-7.7) 10^3/ul Absolute Lymphs (auto) (1.0-4.8) 10^3/ul Absolute Monos (auto) (0-0.8) 10^3/ul Absolute Eos (auto) (0-0.6) 10^3/ul Absolute Basos (auto) (0-0.2) 10^3/ul Absolute Nucleated RBC 10^3/ul Nucleated RBC % Sodium (133-145) mmol/L Potassium Chloride (101-111) mmol/L Carbon Dioxide (22-32) mmol/L Anion Gap BUN (6-24) mg/dL Creatinine (0.67-1.17) mg/dL Est GFR ( Amer) (>60) Est GFR (Non-Af Amer) (>60) BUN/Creatinine Ratio (8-20) Glucose (70-100) mg/dL Lactic Acid (0.5-2.0) mmol/L Calcium (8.6-10.3) mg/dL Magnesium (1.9-2.7) mg/dL Total Bilirubin (0.2-1.0) mg/dL AST ALT (7-52) U/L Alkaline Phosphatase (34-104) U/L Troponin I (<0.04) ng/mL C-Reactive Protein (< 5.00) mg/L B-Natriuretic Peptide 9 ( - 100) pg/mL Total Protein (6.4-8.9) g/dL Albumin (3.2-5.2) g/dL Globulin (2-4) g/dL Albumin/Globulin Ratio (1-3) TSH (0.34-5.60) mcIU/mL Result Diagrams: 08/24/16 08:18 08/24/16 08:18 Lab Statement: Any lab studies that have been ordered have been reviewed, and results considered in the medical decision making process. - Radiology CXR Xray Interpretation: Positive (See Comments) - IMPRESSION: Stigmata of emphysema. Small dependent RIGHT pleural effusion versus chronic pleural parenchymal scarring. Large retrocardiac hiatal hernia. No evidence for pneumonia or pulmonary edema. Radiology Interpretation Completed By: Radiologist Wrist XR Xray Interpretation: No Acute Changes - IMPRESSION: 1. NO EVIDENCE FOR ACUTE FRACTURE. 2. 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 THIS COULD BE FURTHER EVALUATED WITH AN MRI OF THE WRIST IF CLINICALLY NEEDED. 3. MODERATE TO SEVERE OSTEOARTHRITIC CHANGE. Radiology Interpretation Completed By: Radiologist Forearm XR Xray Interpretation: No Acute Changes - IMPRESSION: NO EVIDENCE FOR FRACTURE. Radiology Interpretation Completed By: Radiologist Elbow XR Xray Interpretation: No Acute Changes - IMPRESSION: NO EVIDENCE FOR FRACTURE. Radiology Interpretation Completed By: Radiologist Humerus XR Xray Interpretation: No Acute Changes - IMPRESSION: 1. OSTEOPENIA. 2. OSTEOARTHRITIS. 3. NO ACUTE OSSEOUS INJURY. THE DEGREE OF OSTEOPENIA MAY MAKE A NONDISPLACED FRACTURE RADIOGRAPHICALLY OCCULT. IF SYMPTOMS PERSIST, RECOMMEND REPEAT IMAGING.. Radiology Interpretation Completed By: Radiologist Shoulder XR Xray Interpretation: No Acute Changes - IMPRESSION: 1. OSTEOPENIA. 2. ADVANCED OSTEOARTHRITIS. 3. NO ACUTE OSSEOUS INJURY. THE DEGREE OF OSTEOPENIA MAY MAKE A NONDISPLACED FRACTURE RADIOGRAPHICALLY OCCULT. IF SYMPTOMS PERSIST, RECOMMEND REPEAT IMAGING. Radiology Interpretation Completed By: Radiologist - Ultrasound No standard instances Ultrasound Interpretation: No Acute Changes - IMPRESSION: NO RIGHT LOWER EXTREMITY DEEP VEIN THROMBOSIS Ultrasound Interpretation Completed By: Radiologist - EKG 07:23 Cardiac Rate: Tachycardia - 117 bpm EKG Rhythm: Sinus Rhythm EKG Interpretation: Normal Gardner Complex Multi-Symp Course/Dx Assessment/Plan: A 70 y/o male presents to the ED with bilateral LE edema since 2 days ago. He was also c/o of right arm pain, right shoulder pain, and bilateral numbness of the UE. He denies SOB, chest pain, leg pain, abdominal pain, and decreased appetite. EKG showed sinus tachycardia at 117 bpm. US showed no DVT. CXR showed small right pleural effusion. XRs of the right arm did not reveal any acute fractures. Labs were reviewed. The patient will be discharged home on Lasix and follow-up with Dr. Patel for thyroid management and Dr. Bonilla. - Diagnoses Differential Diagnoses/HQI/PQRI: Metabolic Abnormality, Other - dvt, fracture, chf, malnutrition, anxiety, osteoarthritis, hypothydroidism, peripheral edema, weakness Provider Diagnoses: Peripheral edema, Weakness, Pain in right arm, Hypothyroidism Discharge - Discharge Plan Condition: Stable Disposition: HOME Prescriptions: Furosemide TAB* [Lasix TAB*] 20 mg PO DAILY #14 tab Patient Education Materials: Furosemide (By mouth), Hypothyroidism (ED), Leg Edema (ED), Weakness (ED) Referrals: Liam Patel MD [Primary Care Provider] - 2 Days William Bonilla MD [Medical Doctor] - 5 Days Additional Instructions: Please follow-up with Dr. Patel in the next 2 days. The documentation as recorded by the Jose C turner Matthew accurately reflects the service I personally performed and the decisions made by me, Sergio Freitas MD.
[2016-08-24 11:25] VITALS: BP 162/92
[2016-08-24 12:54] LABS: Potassium 4.2 mmol/L (3.5-5.0)
== END 2016-08-24 11:24 | disposition home or self-care (01) ==
LOC: ED 07:22
DX: M79.601 Pain in right arm (principal); R60.0 Localized edema; Z87.891 Personal history of nicotine dependence; M54.5 Low back pain; R53.1 Weakness; E03.9 Hypothyroidism, unspecified
CPT/HCPCS: 36415; 71020; 80053; 83605; 83735; 83880; 84443; 84484; 85025; 86140; 93005; 96360; 99284

== ENCOUNTER 2016-10-02 04:56 | Observation (INO) | payer MEDICARE, MEDICAID ==
[2016-10-02 05:21] LABS: Hematocrit 39 % (42-52); Hemoglobin 12.6 g/dl (14.0-18.0); Mean Corpuscular HGB Conc 33 g/dl (31-36); Mean Corpuscular Hemoglobin 30 pg (27-31); Mean Corpuscular Volume 93 fL (80-94); Mean Platelet Volume 7 um3 (7.4-10.4); Red Blood Count 4.19 10^6/ul (4.0-5.4); Red Cell Distribution Width 15 % (10.5-15); White Blood Count 11.7 10^3/ul (3.5-10.8)
[2016-10-02 05:28] LABS: Albumin 3.7 g/dL (3.2-5.2); BUN/Creatinine Ratio 14.6 (8-20); Calcium 9.3 mg/dL (8.6-10.3); EGFR African American 75.3 (>60); EGFR Non-African American 58.5 (>60); Globulin 2.6 g/dL (2-4); HDL Cholesterol 50.5 mg/dL; Potassium 3.8 mmol/L (3.5-5.0); Total Bilirubin 0.3 mg/dL (0.2-1.0); Total Protein 6.3 g/dL (6.4-8.9)
[2016-10-02 05:29] LABS: Troponin I 0.02 ng/mL (<0.04)
--- NOTE | 2016-10-02 05:29 | ED ---
Richard Talbert Billy, scribed for Joel Payton MD on 10/02/16 at 0505 . Neurological HPI - HPI Summary HPI Summary: Patient is a 70 y/o male BIBA to [facility] with a complaint of numbness/weakness in his extremities since 0200 today, while he was watching television. He also reports slurred speech. 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 They also report facial droop. Patient denies any chest pain or SOB. - History of Current Complaint Chief Complaint: EDNeurologicalDeficit Stated Complaint: CODE WILKES Time Seen by Provider: 10/02/16 05:01 Last Known Well Date: Today at 0200 Hx Obtained From: Patient Onset/Duration: Sudden Onset Timing: Constant Onset Severity: Moderate Current Severity: Moderate Neurological Deficit Location: Facial, RUE, LUE, RLE, LLE Character: Numbness/Tingling, Motor Weakness Aggravating: Unknown Alleviating: Unknown Associated Signs and Symptoms: Positive: Impaired Speech - Additional Pertinent History Primary Care Physician: JULIETTE - Allergy/Home Medications Allergies/Adverse Reactions: Allergies Allergy/AdvReac Type Severity Reaction Status Date / Time Codeine Allergy Unknown Verified 10/02/16 05:20 Reaction Details Ibuprofen Allergy Unknown Verified 10/02/16 05:20 Reaction Details Morphine Allergy Unknown Verified 10/02/16 05:20 Reaction Details Rosuvastatin [From Crestor] Allergy Unknown Verified 10/02/16 05:20 Reaction Details Home Medications: Home Medications Etodolac 400 mg PO BID 10/02/16 [History Confirmed 10/02/16] Multiple Vitamins W/ Minerals [Multivitamin Men] 1 tab PO DAILY 10/02/16 [ History Confirmed 10/02/16] Thioridazine TAB* [Mellaril 25 MG*] 25 mg PO BID 10/02/16 [History Confirmed ] PMH/Surg Hx/FS Hx/Imm Hx Endocrine/Hematology History: Denies: Hx Diabetes Cardiovascular History: Reports: Hx Angina, Hx Hypertension Denies: Hx Congestive Heart Failure GI History: Reports: Hx Hiatal Hernia History: Denies: Hx Dialysis, Hx Renal Disease Musculoskeletal History: Reports: Hx Arthritis Sensory History: Reports: Hx Contacts or Glasses Opthamlomology History: Reports: Hx Contacts or Glasses Neurological History: Reports: Hx Developmental Delay Psychiatric History: Reports: Hx Anxiety - Immunization History Date of Tetanus Vaccine: up to date Infectious Disease History: No Infectious Disease History: Denies: Traveled Outside the [place] in Last 30 Days - Family History Known Family History: Positive: Cardiac Disease Negative: Hypertension, Diabetes - Social History Alcohol Use: None Hx Substance Use: No Substance Use Type: Reports: None Hx Tobacco Use: Yes Smoking Status (MU): Former Smoker Review of Systems Negative: Fever Negative: Chest Pain Negative: Shortness Of Breath Neurological: Other - facial droop Positive: Weakness, Numbness, Slurred Speech All Other Systems Reviewed And Are Negative: Yes Physical Exam Triage Information Reviewed: Yes Vital Signs On Initial Exam: Initial Vitals Temp Pulse Resp BP Pulse Ox 99.3 F 119 16 144/88 95 10/02/16 05:00 10/02/16 05:00 10/02/16 05:00 10/02/16 05:00 10/02/16 05:00 Vital Signs Reviewed: Yes Appearance: Positive: No Pain Distress, Ill-Appearing Skin: Positive: Warm Eyes: Positive: EOMI, MADDY ENT: Positive: Hearing grossly normal Neck: Positive: Supple Respiratory/Lung Sounds: Positive: Clear to Auscultation, Breath Sounds Present Cardiovascular: Positive: RRR Abdomen Description: Positive: Nontender, Soft Bowel Sounds: Positive: Present Musculoskeletal: Positive: Strength/ROM Intact Neurological: Positive: Facial Droop, Dysarthric Aphasia Psychiatric: Positive: Affect/Mood Appropriate Diagnostics - Vital Signs Vital Signs Temp Pulse Resp BP Pulse Ox 10/02/16 05:00 99.3 F 119 16 144/88 95 - Laboratory Lab Results: Lab Results 10/02/16 10/02/16 10/02/16 Range/Units 05:03 05:03 05:03 WBC 11.7 H (3.5-10.8) 10^3/ul RBC 4.19 (4.0-5.4) 10^6/ul Hgb 12.6 L (14.0-18.0) g/dl Hct 39 L (42-52) % MCV 93 (80-94) fL MCH 30 (27-31) pg MCHC 33 (31-36) g/dl RDW 15 (10.5-15) % Plt Count 221 (150-450) 10^3/ul MPV 7 L (7.4-10.4) um3 Neut % (Auto) 60.9 (38-83) % Lymph % (Auto) 26.7 (25-47) % [place] % (Auto) 7.9 (1-9) % Eos % (Auto) 3.6 (0-6) % Baso % (Auto) 0.9 (0-2) % Absolute Neuts (auto) 7.1 (1.5-7.7) 10^3/ul Absolute Lymphs (auto) 3.1 (1.0-4.8) 10^3/ul Absolute Monos (auto) 0.9 H (0-0.8) 10^3/ul Absolute Eos (auto) 0.4 (0-0.6) 10^3/ul Absolute Basos (auto) 0.1 (0-0.2) 10^3/ul Absolute Nucleated RBC 0.01 10^3/ul Nucleated RBC % 0.1 INR (Anticoag Therapy) 0.91 (0.89-1.11) APTT 28.5 (26.0-36.3) seconds Sodium 141 (133-145) mmol/L Potassium 3.8 (3.5-5.0) mmol/L Chloride 105 (101-111) mmol/L Carbon Dioxide 29 (22-32) mmol/L Anion Gap 7 (2-11) mmol/L BUN 18 (6-24) mg/dL Creatinine 1.23 H (0.67-1.17) mg/dL Est GFR ( Amer) 75.3 (>60) Est GFR (Non-Af Amer) 58.5 (>60) BUN/Creatinine Ratio 14.6 (8-20) Glucose 99 (70-100) mg/dL Lactic Acid (0.5-2.0) mmol/L Calcium 9.3 (8.6-10.3) mg/dL Total Bilirubin 0.30 (0.2-1.0) mg/dL AST 25 (13-39) U/L ALT 18 (7-52) U/L Alkaline Phosphatase 82 (34-104) U/L Troponin I Pending Total Protein 6.3 L (6.4-8.9) g/dL Albumin 3.7 (3.2-5.2) g/dL Globulin 2.6 (2-4) g/dL Albumin/Globulin Ratio 1.4 (1-3) Triglycerides 77 mg/dL Cholesterol 195 mg/dL LDL Cholesterol 129 mg/dL HDL Cholesterol 50.5 mg/dL 10/02/16 Range/Units 05:03 WBC (3.5-10.8) 10^3/ul RBC (4.0-5.4) 10^6/ul Hgb (14.0-18.0) g/dl Hct (42-52) % MCV (80-94) fL MCH (27-31) pg MCHC (31-36) g/dl RDW (10.5-15) % Plt Count (150-450) 10^3/ul MPV (7.4-10.4) um3 Neut % (Auto) (38-83) % Lymph % (Auto) (25-47) % [place] % (Auto) (1-9) % Eos % (Auto) (0-6) % Baso % (Auto) (0-2) % Absolute Neuts (auto) (1.5-7.7) 10^3/ul Absolute Lymphs (auto) (1.0-4.8) 10^3/ul Absolute Monos (auto) (0-0.8) 10^3/ul Absolute Eos (auto) (0-0.6) 10^3/ul Absolute Basos (auto) (0-0.2) 10^3/ul Absolute Nucleated RBC 10^3/ul Nucleated RBC % INR (Anticoag Therapy) (0.89-1.11) APTT (26.0-36.3) seconds Sodium (133-145) mmol/L Potassium (3.5-5.0) mmol/L Chloride (101-111) mmol/L Carbon Dioxide (22-32) mmol/L Anion Gap (2-11) mmol/L BUN (6-24) mg/dL Creatinine (0.67-1.17) mg/dL Est GFR ( Amer) (>60) Est GFR (Non-Af Amer) (>60) BUN/Creatinine Ratio (8-20) Glucose (70-100) mg/dL Lactic Acid 1.1 (0.5-2.0) mmol/L Calcium (8.6-10.3) mg/dL Total Bilirubin (0.2-1.0) mg/dL AST (13-39) U/L ALT (7-52) U/L Alkaline Phosphatase (34-104) U/L Troponin I Total Protein (6.4-8.9) g/dL Albumin (3.2-5.2) g/dL Globulin (2-4) g/dL Albumin/Globulin Ratio (1-3) Triglycerides mg/dL Cholesterol mg/dL LDL Cholesterol mg/dL HDL Cholesterol mg/dL Result Diagrams: 10/02/16 05:03 10/02/16 05:03 Lab Statement: Any lab studies that have been ordered have been reviewed, and results considered in the medical decision making process. - Radiology CXR Radiology Interpretation Completed By: Radiologist - See EMR* - CT brain CT Interpretation: No Acute Changes CT Interpretation Completed By: Radiologist - EKG 514 EKG Interpretation: sinus tachycardia 112 bpm, no STEMI NIH Scale - NIH Scale Level of Consciousness: Alert/Keenly Responsive Ask Patient the Month and His/Her Age: Both Correct Ask Pt to Open/Close Eyes and Farm Management Professor/Release Non-Paretic Hand: Both Correctly Best Gaze (Only Horizontal Eye Movement): Normal Visual Field Testing: No Visual Loss Facial Paresis-Pt to Smile & Close Eyes or Grimace Symmetry: Minor Paralysis Motor Function - Right Arm: No Drift-Holds 10 Seconds Motor Function - Left Arm: No Drift-Holds 10 Seconds Motor Function - Right Leg: No Drift-Holds 10 Seconds Motor Function - Left Leg: No Drift-Holds 10 Seconds Limb Ataxia-Must be out of Proportion to Weakness Present: Absent Sensory (Use Pinprick to Test Arms/Legs/Trunk/Face): Normal Best Language (Describe Picture, Name Items): No Aphasia Dysarthria (Read Several Words): Slurs Some Words Extinction and Inattention: No Abnormality Total Score: 2 Re-Evaluation - Re-Evaluation First Eval Re-Evaluation Time: 05:30 Change: Unchanged - Case d/w dr au, case d/w dr meza Course/Dx - Diagnoses Provider Diagnoses: CVA (cerebral vascular accident) During the Visit The Following Alert/Code Occurred: Code Levi - Called [phone] - Physician Notifications Discussed Care of Patient With: Dr. Rosa (Imaging [employer] scout) @ 0525: CT brain results reviewed, negative. Dr. Meza (hospitalist) @ 0530: accepts admission. Dr. Sr (neurology) @ 0532: patient presentation discussed , no thrombolytics. - Critical Care Time Critical Care Time: 30-74 min Discharge - Discharge Plan Condition: Critical Disposition: ADMITTED TO [facility] documentation as recorded by the Richard turner Billy accurately reflects the service I personally performed and the decisions made by me, Joel Payton MD.
--- NOTE | 2016-10-02 05:47 | HP ---
H&P (Free Text) History and Physical: PCP: Feliz Patel MD Hematology: Walter Bonilla MD Date/Time of Evaluation: 10/02/2016 0550 CC: "stroke symptoms", clarified to be "pain in both shoulders and down all my body" HPI: Mr Gasca is a 70YO male with borderline cognitive functioning who presents with the above complaint. He obviously has a R facial droop and slurred speech, but does not mention this until directly asked and then states it began about 2hours ago. He denies focal W/N/T, change in vision/swallow, or headache. He denies fall or injury. He is quite perseverant regarding his B shoulder pain. He denies chest pain, SOB, N/V, F/C, cough, congestion, or other problems. Work up reveals an NIHSS of 3 for RUE ataxia, R facial droop, & understandable dysarthria. Vitals are stable with sinus tachycardia in the 110s. Labs reveal a stable mild normocytic anemia, normal coags, a creatinine of 1.23 (baseline 1.0) , but are otherwise reasonable normal. CT brain WO has been read as negative. ECG is NSR rate 112, no ischemia. PMedHx HTN HLD asthma borderline cognitive function sinus tachycardia hypothyroidism chronic leukocytosis GERD BPH RLS OA Allergies Codeine Allergy (Verified 10/02/16 05:20) Unknown Reaction Details Ibuprofen Allergy (Verified 10/02/16 05:20) Unknown Reaction Details pt states able to tolerate low doses Morphine Allergy (Verified 10/02/16 05:20) Unknown Reaction Details Rosuvastatin [From Crestor] Allergy (Verified 10/02/16 05:20) Unknown Reaction Details Ambulatory Orders Nursing to reconcile. Aspirin TAB* [Aspirin 325 MG TAB*] 325 mg PO TID PRN 03/01/16 Cyclobenzaprine TAB* [Flexeril 10 MG TAB*] 10 mg PO TID PRN 03/01/16 Levothyroxine TAB* [Synthorid 112 MCG TAB*] 112 mcg PO DAILY 03/01/16 Lisinopril TAB* [Prinivil TAB 10 MG*] 10 mg PO DAILY 03/01/16 Ondansetron ODT TAB* [Zofran 4 MG Odt TAB*] 8 mg PO TID PRN 03/01/16 Pentoxifylline CR TAB* [Trental CR TAB*] 400 mg PO TID 03/01/16 Famotidine TAB* [Pepcid TAB*] 40 mg PO BID 03/28/16 Sucralfate TAB* [Carafate*] 1 gm PO TID 03/28/16 rOPINIRole TAB* [Requip TAB*] 9 mg PO TID 03/28/16 Tamsulosin CAP* [Flomax CAP*] 0.4 mg PO BID 04/28/16 Ferrous Sulfate TAB* 325 mg PO DAILY 07/01/16 Furosemide TAB* [Lasix TAB*] 20 mg PO DAILY #14 tab 08/24/16 Etodolac 400 mg PO BID 10/02/16 Multiple Vitamins W/ Minerals [Multivitamin Men] 1 tab PO DAILY 10/02/16 Thioridazine TAB* [Mellaril 25 MG*] 25 mg PO BID 10/02/16 SocHx: former smoker quit in the 1970s, no alcohol or recreational drugs; lives alone at [facility] on disability; full code status FamHx: Mother: CAD; Father: CAD ROS: as above, otherwise reviewed and all were negative Constitutional: NAD, normally developed, well-nourished elderly white male appearing older than his reported age vitals: Vital Signs Temp 37.4 C 10/02/16 05:00 Pulse 112 10/02/16 05:18 Resp 16 10/02/16 05:18 BP 144/88 10/02/16 05:00 Pulse Ox 99 10/02/16 05:18 Intake & Output 10/01/16 10/01/16 10/02/16 11:59 23:59 11:59 Weight 71.668 kg HEENM: atraumatic; sclera/conjunctiva: non-icteric/clear; hearing: clinically intact; oropharynx: clear, mucosa tacky Neck: soft tissue: non-tender; thyroid: normal Pulmonary: clear to auscultation bilaterally, good aeration, no accessory muscle use CV: RR/RR, normal S1S2, no carotid bruit, no jugular venous distention, 2+ B DP/ PT, no edema Abdominal: soft, non-distended, non-tender, no rebound/guarding/rigidity, normoactive bowel sounds, no hepatosplenomegaly or masses, no costovertebral angle tenderness Musculoskeletal: general: grossly intact; gait: stable Integumental: normal appearance and texture of exposed skin Neurological cranial nerves II: intact visual skaggs III/IV/: symmetric light reflex, EOMI/PERRLA V: intact facial sensation VII: mild R facial droop, intact B eye clench VIII: hearing clinically intact IX/X: symmetric palatal motion, intact gag reflex, mild understandable dysarthria XI: intact B shoulder shrug XII: midline tongue protrusion motor: claim ambidexterity, writes with his R/eats with his L LUE: 4-/5 proximally, 4+/5 distally & utility gelatin maker strength RUE: 4-/5 proximally, distally, & utility gelatin maker strength LLE: 4+/5 proximally & distally RLE: 4+/5 proximally & distally coordination finger/nose: mild RUE ataxia, intact L heal/carranza: intact & symmetric sensory crude touch: intact globally w/o neglect/extinction pinprick: intact globally proprioception: intact BLE DTRs biceps: 2+ B triceps: 2+ B brachioradialis: 2+ B patellar: 2 +B Achilles: 1+ B Babinski: downgoing L, equivocal R Psychiatric orientation: AA&O to PPS affect: mildly agitated mood: cooperative eye contact: fair content: perseverant regarding B shoulder pain responses: timely insight: fair Testing: Lab Results 10/02/16 10/02/16 10/02/16 Range/Units 05:03 05:03 05:03 WBC 11.7 H (3.5-10.8) 10^3/ul RBC 4.19 (4.0-5.4) 10^6/ul Hgb 12.6 L (14.0-18.0) g/dl Hct 39 L (42-52) % MCV 93 (80-94) fL MCH 30 (27-31) pg MCHC 33 (31-36) g/dl RDW 15 (10.5-15) % Plt Count 221 (150-450) 10^3/ul MPV 7 L (7.4-10.4) um3 Neut % (Auto) 60.9 (38-83) % Lymph % (Auto) 26.7 (25-47) % [place] % (Auto) 7.9 (1-9) % Eos % (Auto) 3.6 (0-6) % Baso % (Auto) 0.9 (0-2) % Absolute Neuts (auto) 7.1 (1.5-7.7) 10^3/ul Absolute Lymphs (auto) 3.1 (1.0-4.8) 10^3/ul Absolute Monos (auto) 0.9 H (0-0.8) 10^3/ul Absolute Eos (auto) 0.4 (0-0.6) 10^3/ul Absolute Basos (auto) 0.1 (0-0.2) 10^3/ul Absolute Nucleated RBC 0.01 10^3/ul Nucleated RBC % 0.1 INR (Anticoag Therapy) 0.91 (0.89-1.11) APTT 28.5 (26.0-36.3) seconds Sodium 141 (133-145) mmol/L Potassium 3.8 (3.5-5.0) mmol/L Chloride 105 (101-111) mmol/L Carbon Dioxide 29 (22-32) mmol/L Anion Gap 7 (2-11) mmol/L BUN 18 (6-24) mg/dL Creatinine 1.23 H (0.67-1.17) mg/dL Est GFR ( Amer) 75.3 (>60) Est GFR (Non-Af Amer) 58.5 (>60) BUN/Creatinine Ratio 14.6 (8-20) Glucose 99 (70-100) mg/dL Lactic Acid (0.5-2.0) mmol/L Calcium 9.3 (8.6-10.3) mg/dL Total Bilirubin 0.30 (0.2-1.0) mg/dL AST 25 (13-39) U/L ALT 18 (7-52) U/L Alkaline Phosphatase 82 (34-104) U/L Troponin I 0.02 (<0.04) ng/mL Total Protein 6.3 L (6.4-8.9) g/dL Albumin 3.7 (3.2-5.2) g/dL Globulin 2.6 (2-4) g/dL Albumin/Globulin Ratio 1.4 (1-3) Triglycerides 77 mg/dL Cholesterol 195 mg/dL LDL Cholesterol 129 mg/dL HDL Cholesterol 50.5 mg/dL 03/27/17 Range/Units 05:03 WBC (3.5-10.8) 10^3/ul RBC (4.0-5.4) 10^6/ul Hgb (14.0-18.0) g/dl Hct (42-52) % MCV (80-94) fL MCH (27-31) pg MCHC (31-36) g/dl RDW (10.5-15) % Plt Count (150-450) 10^3/ul MPV (7.4-10.4) um3 Neut % (Auto) (38-83) % Lymph % (Auto) (25-47) % [place] % (Auto) (1-9) % Eos % (Auto) (0-6) % Baso % (Auto) (0-2) % Absolute Neuts (auto) (1.5-7.7) 10^3/ul Absolute Lymphs (auto) (1.0-4.8) 10^3/ul Absolute Monos (auto) (0-0.8) 10^3/ul Absolute Eos (auto) (0-0.6) 10^3/ul Absolute Basos (auto) (0-0.2) 10^3/ul Absolute Nucleated RBC 10^3/ul Nucleated RBC % INR (Anticoag Therapy) (0.89-1.11) APTT (26.0-36.3) seconds Sodium (133-145) mmol/L Potassium (3.5-5.0) mmol/L Chloride (101-111) mmol/L Carbon Dioxide (22-32) mmol/L Anion Gap (2-11) mmol/L BUN (6-24) mg/dL Creatinine (0.67-1.17) mg/dL Est GFR ( Amer) (>60) Est GFR (Non-Af Amer) (>60) BUN/Creatinine Ratio (8-20) Glucose (70-100) mg/dL Lactic Acid 1.1 (0.5-2.0) mmol/L Calcium (8.6-10.3) mg/dL Total Bilirubin (0.2-1.0) mg/dL AST (13-39) U/L ALT (7-52) U/L Alkaline Phosphatase (34-104) U/L Troponin I (<0.04) ng/mL Total Protein (6.4-8.9) g/dL Albumin (3.2-5.2) g/dL Globulin (2-4) g/dL Albumin/Globulin Ratio (1-3) Triglycerides mg/dL Cholesterol mg/dL LDL Cholesterol mg/dL HDL Cholesterol mg/dL ECG, personally reviewed: sinus tachycardia rate 112, no ischemia CXR, personally reviewed: no acute process CT brain WO, personally reviewed: read as negative Impression: 70M presenting with CVA w/i the tPA window, but with deficits too mild to consider administration DIAGNOSIS & PLAN Primary TIA/CVA : aspirin : MRI brain this AM : ECHO this AM : CTA head/neck after hydration : telemetry : supplemental oxygen : NPO until bedside swallow passed : PT/OT evaluations : check lipid profile : Nick Mendez MD consulted by ED, will evaluate this AM : supportive care Secondary HTN : review meds once reconciled HLD : review meds once reconciled : heart healthy diet once taking PO asthma : review meds once reconciled : PRN albuterol nebs borderline cognitive function : no acute issues sinus tachycardia : telemetry monitoring hypothyroidism : review meds once reconciled chronic leukocytosis : no acute issues GERD : review meds once reconciled : PO omeprazole BPH : review meds once reconciled RLS : review meds once reconciled OA : review meds once reconciled Admission Rational: CDU observation for TIA/CVA work up DVTp: heparin SQ & SCDs Code Status: full HCP: brotherYuriy
[2016-10-02] MEDS ORDERED: Acetaminophen TAB* 325 MG PO PRN (06:19)
[2016-10-02] MEDS ORDERED: Albuterol 2.5 MG/3 ML NEB.SOL* (0.083%) INH PRN (06:19)
[2016-10-02] MEDS ORDERED: Ondansetron INJ* 2 MG/ML VIAL IV PRN (06:20)
[2016-10-02] MEDS ORDERED: Melatonin (NF) 3 MG TAB PO PRN (06:20)
[2016-10-02] MEDS ORDERED: traMADol TAB* 50 MG PO PRN (06:20)
--- NOTE | 2016-10-02 07:55 | RAD ---
INDICATION: Slurred speech COMPARISON: CT of the brain dated August 04, 2016. TECHNIQUE: Contiguous axial sections of the brain were obtained from the skull base to the vertex without contrast. FINDINGS: The ventricles, cisterns and sulci exhibit mild symmetrical involutional changes. There is mild periventricular and subcortical hypoattenuation similar in appearance to the previous CT examination and most consistent with chronic microvascular disease. The howell-white matter differentiation is adequately maintained and there is no sulcal effacement. No significant focal abnormality or mass effect is present. There is no evidence for intracranial hemorrhage. No significant focal osseous abnormality is present. The visualized portion of the paranasal sinuses and mastoid air cells appear clear. IMPRESSION: Chronic findings as described above without CT evidence of acute intracranial abnormality.
--- NOTE | 2016-10-02 07:56 | RAD ---
INDICATION: Slurred speech COMPARISON: Most recent comparison chest x-ray is dated August 24, 2016 TECHNIQUE: Single AP view of the chest was obtained. FINDINGS: The patient is rotated towards his right. The heart and mediastinum exhibit normal size and contour. The lungs are grossly clear. There is no evidence of a large pleural effusion. Advanced degenerative changes of the bilateral shoulders are incidentally noted. IMPRESSION: No radiographic evidence for acute cardiopulmonary abnormality on this single AP view chest x-ray.
[2016-10-02] MEDS ORDERED: Docusate CAP* 100 MG PO SCH (09:00)
--- NOTE | 2016-10-02 09:00 | CONSULT ---
Consult Consult: 10/02/16 neurology consult 70 yo RHM w/ mild intellectual disability, unspecified mental health issues ( chronically on thioridazine; denies psychosis but says its for anxiety), RLS ( on requip, per notes sees Dr Zimmerman), p/w slurred speech and perhaps right facial asymmetry per ED. He was in the ED in 08/25 and 07/25 for a panoply of symptoms, including right vs bilateral leg swelling, right sided but also left facial numbness, chronic speech changes, chest pains, pre syncope, back pains , etc. He was hospitalized in 02/21 for chest pains and in 03/24 for chest pains, [place] and urinary retention. He is on ASA at baseline (some notes suggest he uses it at a high dose). In chart review, he was discharged from PT in 2011 for limited copperation, diffuse bilateral hand pain complaints, inability to wear a thumb brace. He suggests diffuse uribe body numbness that is new, or at least for the past few months. He suggests that the speech changes have a similar timeline. He wonders re stroke. He has bilateral upper arm pains and asks me for xrays. He has no visual, bulbar, gait issues, denies use of cane or walker, denies current cardiopulm symptoms. Allergies/Meds - per mar PMH - as above, plus: HTN, HL, OA, hernia, asthma, GERD, BPH, thyroid dz FH - cad and stroke; parents SH - on disability for devmt delay, brother proxy, very remote tobacco, no etoh ; [facility] living ROS - 10 point review as per hpi, otherwise negative general Examination: no apparent distress, no edema, male of stated age, arachnodactyly, kyphoscoliotic; vs per emr Neurologic Examination Mental Status: alert and oriented; affect reactive but somewhat anxious, no clear neglect, fluent speech Cranial Nerves: Funduscopy deferred, otherwise II-XII intact save mild dysarthria, but clearly understandable; skaggs full to confrontation Motor: normal bulk, tone and power; no drift or tremor Sensory: vibration and touch are intact Reflexes: 2 throughout symmetrically. Plantar responses are equivocal to flexor ; Martinez signs absent Coordination: finger to nose is accurate Gait: normal casual gait; narrow base; Romberg negative; kyphoscoliotic Serologies: - Cr 1.2 (baseline 0.9-1); wbc 12, his LFTs and coags and trop are normal or negative - Priors: TSH 6.3, LDH, cpk, bnp, esr are all fine Imaging: - Head CT reviewed and negative - 02/21 TTE neg save mild LVH - 2006 cervical spine mri w/ djd only - 08/25 RLE and 01/18 LUE u/s neg DVT; 08/25 cxr w/ hernia, chronic R pleural effusion, copd changes; 02/21 CTA chest, abd and pelvis same Impression: 70 yo RHM w/ mild intellectual disability, unspecified mental health issues ( chronically on thioridazine; denies psychosis but says its for anxiety), RLS ( on requip, per notes sees Dr Zimmerman), p/w slurred speech and uribe body subjective 'numbness'; neither of these concerns seem acute, and he has periodic ED visits/admissions for variegated and usually multiple somatic symptoms, with negative workups. His neuro exam and head CT are non localizing; he has no UMN or lateralizing symptoms, nor clearly neuropathic complaints. He may be mildly dehydrated by labs. I doubt he has an acute FAMILY DEVELOPMENT SPECIALIST vascular problem, does not need any further inpatient testing and from a neuro standpoint can be discharged home. His outpatient records are not known to me; I would defer to dr zimmerman re any further testing (eg NCS, B12 and aic testing, etc); he suggests a scheduled follow up in several months; I sent dr zimmerman's practice an email re this eval, and they can decide if earlier follow up in clinic is warranted.
[2016-10-02] MEDS ORDERED: Cyclobenzaprine TAB* 10 MG PO PRN (10:12)
[2016-10-02] MEDS ORDERED: Ondansetron ODT TAB* 4 MG PO PRN (10:12)
[2016-10-02] MEDS ORDERED: Aspirin TAB* 325 MG PO PRN (10:12)
[2016-10-02] MEDS: Aspirin TAB* 325 MG PO SCH ×2 (10:27→11:36)
[2016-10-02] MEDS ORDERED: THIORIDAZINE 25 MG PO SCH (11:00)
[2016-10-02] MEDS ORDERED: Levothyroxine TAB* 112 MCG TAB PO SCH (11:00)
[2016-10-02 12:07] LABS: Urine Bilirubin Negative (Negative); Urine Glucose Negative (Negative); Urine Nitrite Negative (Negative)
[2016-10-02 12:28] LABS: BUN/Creatinine Ratio 12.4 (8-20); Calcium 9.3 mg/dL (8.6-10.3); EGFR African American 76.7 (>60); EGFR Non-African American 59.6 (>60); Potassium 3.7 mmol/L (3.5-5.0)
[2016-10-02] MEDS ORDERED: Pentoxifylline CR TAB* 400 MG PO SCH (14:00)
[2016-10-02] MEDS ORDERED: rOPINIRole TAB* 1 MG PO SCH (14:00)
[2016-10-02] MEDS ORDERED: Sucralfate TAB* 1 GM PO SCH ×2 (14:00→21:00)
[2016-10-02] MEDS ORDERED: rOPINIRole TAB* 4 MG PO SCH (14:00)
[2016-10-02 14:28] VITALS: BP 159/95
[2016-10-02] MEDS ORDERED: Lisinopril TAB* 10 MG PO ONE (14:37)
[2016-10-02] MEDS ORDERED: Lisinopril TAB* 10 MG ONE (14:51)
[2016-10-02] MEDS ORDERED: Tamsulosin CAP* 0.4 MG PO SCH (21:00)
[2016-10-03] MEDS ORDERED: Omeprazole CAP* 20 MG PO SCH (06:00)
[2016-10-03] MEDS ORDERED: Heparin VIAL(*) 5000 UNITS/ML VIAL (FIVE THOUSAND) SUBCUT SCH (06:00)
--- NOTE | 2016-10-03 08:15 | DS ---
DISCHARGE SUMMARY: DATE OF ADMISSION: 10/02/16 DATE OF DISCHARGE: 10/02/16 PRIMARY CARE PROVIDER: Dr. Patel. DISCHARGE DIAGNOSES: 1. Bilateral arm pain, appears chronic. 2. Flattening of right nasolabial fold. 3. Chronic dysarthria. SECONDARY DIAGNOSES: 1. Hypertension. 2. Hyperlipidemia. 3. Asthma. 4. Borderline cognitive function. 5. History of sinus tachycardia. 6. Hypothyroidism. 7. History of chronic leukocytosis. 8. Gastroesophageal reflux disease. 9. Benign prostatic hypertrophy. 10. Restless leg syndrome. 11. Osteoarthritis. MEDICATIONS AT DISCHARGE: Unchanged from admission and include: 1. Etodolac 400 mg b.i.d. 2. Aspirin 325 mg t.i.d. p.r.n. 3. Flexeril 10 mg t.i.d. p.r.n. 4. Pepcid 40 mg b.i.d. 5. Ferrous sulfate 325 mg daily. 6. Synthroid 112 mcg daily. 7. Lisinopril 10 mg daily. 8. Multivitamin one tablet daily. 9. Zofran 8 mg t.i.d. p.r.n. 10. Trental CR 400 mg t.i.d. 11. Carafate 1 g 3 times a day. 12. Flomax 0.4 mg b.i.d. 13. Thioridazine 25 mg b.i.d. 14. Requip 9 mg 3 times a day. CONSULTANTS DURING THE HOSPITAL STAY: Included Dr. Mendez from Neurology. LABORATORY DATA AND STUDIES PERFORMED DURING THE HOSPITAL STAY: Included on - white blood cell count 11.7, hemoglobin 12.6, hematocrit 39, and platelets 221. Sodium 141, potassium 3.7, chloride 107, carbon dioxide 30, BUN 15, creatinine 1.21. Urinalysis was negative at admission. Brain CT obtained at admission, impression: "Chronic findings as described above without CT evidence of acute intracranial abnormality." HOSPITALIZATION COURSE: Harinder Gasca is a 70-year-old male with history of low intellectual functioning at baseline who had been seen in the ER multiple times in the past several months for one-sided numbness, tingling versus bilateral arm pain. 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 This could be further evaluated with an MRI of the wrist if clinically needed." The patient presented on 10/02/16 with complaints of right-sided numbness, slurred speech, and generalized weakness. The patient was noted to have history of chronic dysarthria. He was seen by Dr. Dr. Mendez from Neurology for evaluation. According to Dr. Mendez, none of those concerns seemed acute. The patient has history of multiple somatic symptoms in the past with negative workups. Dr. Mendez did not recommend any further inpatient testing, and recommended for the patient to be discharged from a neuro standpoint. Prior to discharge, the patient ambulated without any need of support. He still has slight flattening of right nasolabial fold; and, as per prior reports, it was documented in the past as well as dysarthria. He does complain of bilateral biceps pain. It appears that in the past he did have ESR checked in August 2016; it was 19, basically ruled out possibility of polymyalgia rheumatica. At this point, I believe that his complaints are purely musculoskeletal. I would recommend for him not to use etodolac together with aspirin as previously ordered by his primary care provider due to his mild elevation of creatinine. The patient did receive intravenous fluids during his hospital stay. In the past, apparently he had used Lasix for leg edema. He himself could not provide any information, but it was noted that his Lasix was prescribed for a 7-day supply sometime in August by the ER physician. At this point, the patient is recommended to discontinue his Lasix at discharge, and follow up with Dr. Patel in approximately 4 to 7 days. PHYSICAL EXAMINATION AT THE TIME OF DISCHARGE: Blood pressure 120/95, heart rate 112 and regular, respiratory rate 18, oxygen saturation 96% on room air, and temperature 98.9. General: The patient is a very pleasant 70-year-old male who is in no acute distress. The patient is alert and oriented x3. He is a poor historian at baseline. HEENT: Head: Atraumatic, normocephalic. Eyes: Pupils equal, reactive to light and accommodation. Oropharynx clear. Mucosa moist. Neck: Supple. No JVD, no bruit bilaterally. Cardiovascular: Regular rate and rhythm. Tachycardia. Respiratory: Clear to auscultation bilaterally. Abdomen: Soft, nontender. Bowel sounds present in all 4 quadrants. Extremities: There is no edema. Pulses are +2 bilaterally. No clubbing or cyanosis. On evaluation of the extremities, the patient complains of tenderness on palpation of bilateral biceps muscles. There is no palpable mass or specific point tenderness over the palpated musculature of the upper extremities. Neuro Evaluation: Speech slightly dysarthric, but as per patient' s baseline. The patient does have slight flattening of the right nasolabial fold. It corrects when he smiles. There is no other facial asymmetry present. Motor evaluation: Motor strength is 5/5 bilaterally in bilateral upper and lower extremities, and there is no pronator drift in either of the upper extremities. Psychiatric Evaluation: The patient has limited capacity to understand his medical condition and mechanism of his medications. At discharge, the patient is recommended to follow up with Dr. Joel, who is the patient's pain management doctor, as well as Dr. Patel, the patient's primary care provider, within the next week. CC: Dr. Patel; Dr. Joel; Dr. Bonilla; Dr. Mendez * [id number]/[facility] #: [id number] M[facility] IMOGEN[facility] BASSETT HOSPITALCarin
[2016-10-03] MEDS ORDERED: Lisinopril TAB* 10 MG PO SCH (09:00)
[2016-10-03] MEDS ORDERED: Furosemide TAB* 20 MG PO SCH (09:00)
[2016-10-03] MEDS ORDERED: Ferrous Sulfate TAB* 325 MG PO SCH (09:00)
== END 2016-10-02 16:30 | disposition home or self-care (01) ==
LOC: ED 04:56 → MEDTELE 05:45
PROVIDERS: ADMIT Hospitalist; ATTEND Internal Medicine
DX: M79.602 Pain in left arm (principal); M79.601 Pain in right arm; M95.0 Acquired deformity of nose; R47.1 Dysarthria and anarthria; I10 Essential (primary) hypertension; E78.5 Hyperlipidemia, unspecified; J45.909 Unspecified asthma, uncomplicated; R00.0 Tachycardia, unspecified; E03.9 Hypothyroidism, unspecified; D72.829 Elevated white blood cell count, unspecified; N40.0 Benign prostatic hyperplasia without lower urinary tract symptoms; G25.81 Restless legs syndrome; Z79.82 Long term (current) use of aspirin; Z79.899 Other long term (current) drug therapy; Z88.5 Allergy status to narcotic agent; Z88.8 Allergy status to other drugs, medicaments and biological substances; Z87.891 Personal history of nicotine dependence
CPT/HCPCS: 36415; 70450; 71010; 80048; 80053; 80061; 81003; 82550; 83605; 84484; 85025; 85610; 85730; 93005; 94760; 96360; 96361; 99291; A9270-GY; G0378; G8978-GP-CJ; G8979-GP-CH; G8987-GO-CI; G8988-GO-CI

== ENCOUNTER 2016-10-14 21:19 | Observation (INO) | payer MEDICARE, MEDICAID ==
[2016-10-14] MEDS ORDERED: methylPREDNISolone SOD SUCC* 125 MG 2 ML VIAL IV ONE (21:23)
[2016-10-14] MEDS ORDERED: Vancomycin(*) 1,000 MG in NS 0.9% 250 ML* 250 ML IVPB ONE (21:35)
[2016-10-14] MEDS ORDERED: NS 0.9% 1000 ML* 2,100 ML IV ONE (21:36)
[2016-10-14 21:46] LABS: Hematocrit 35 % (42-52); Hemoglobin 11.4 g/dl (14.0-18.0); Mean Corpuscular HGB Conc 32 g/dl (31-36); Mean Corpuscular Hemoglobin 29 pg (27-31); Mean Corpuscular Volume 90 fL (80-94); Mean Platelet Volume 7 um3 (7.4-10.4); Red Cell Distribution Width 14 % (10.5-15); White Blood Count 20.6 10^3/ul (3.5-10.8)
--- NOTE | 2016-10-14 21:52 | RAD ---
INDICATION: Fever COMPARISON: October 02, 2016 TECHNIQUE: An AP portable view obtained at 2145 hours is submitted. FINDINGS: Bones/Soft Tissues: There are no acute bony findings. Cardiomediastinal: The cardiomediastinal silhouette is normal. Lungs: There are no infiltrates. Pleura: There is chronic blunting of right costophrenic angle. Other: Large hiatal hernia IMPRESSION: NO ACTIVE DISEASE
[2016-10-14 21:54] LABS: Add Diff/Slide Review? Slide Review Added; Comments Flag Yes
[2016-10-14 21:59] LABS: Albumin 3.1 g/dL (3.2-5.2); BUN/Creatinine Ratio 22.3 (8-20); C Reactive Protein 266.82 mg/L (< 5.00); Calcium 8.5 mg/dL (8.6-10.3); EGFR African American 92.4 (>60); EGFR Non-African American 71.8 (>60); Globulin 3.2 g/dL (2-4); Potassium 3.1 mmol/L (3.5-5.0); Total Bilirubin 0.4 mg/dL (0.2-1.0); Total Protein 6.3 g/dL (6.4-8.9)
[2016-10-14] MEDS ORDERED: Iohexol 300* (CONTRAST) 10 ML SDV IV ONE (22:17)
[2016-10-14] MEDS ORDERED: Acetaminophen SUPP* 650 MG SUPP PR ONE (22:19)
[2016-10-14] MEDS ORDERED: Clindamycin 900 MG IVPREMIX(* 900 MG/50 ML SDV IV ONE (22:44)
--- NOTE | 2016-10-14 22:57 | RAD ---
INDICATION: Lower facial/neck infection COMPARISON: None TECHNIQUE: Axial source images were acquired following the intravenous administration of 50 mL Omnipaque 300 Coronal and sagittal reconstructed images were acquired. FINDINGS: Soft tissues: There is cellulitic response in the left face and neck extending from from the left supraorbital region down to the level of the left clavicle. This is most prominent at the level of the angle of the mandible. Diffuse phlegmonous change is present but there is no discrete localized collection suggestive of an organized abscess. Brain and skull base: There are no CT abnormalities of the visualized brain or skull base. The mastoid air cells are well aerated. Salivary glands: The major salivary glands appear normal. Paranasal sinuses: The paranasal sinuses are clear. Nasopharynx: The nasopharynx and nasal cavity appear normal. Oropharynx: The oral, and oropharynx appear normal. Larynx: There are no laryngeal abnormalities. Thyroid: The thyroid appears normal. Lymph nodes: There are mildly prominent submental lymph nodes which appear reactive. There are enlarged left supraclavicular lymph nodes. Trachea/esophagus: There are no abnormalities of the trachea or visualized esophagus. The visualized lung apices are clear.. Vessels:The vessels appear patent. Bones and soft tissues: There are no focal osseous findings. Other: None IMPRESSION: DIFFUSE CELLULITIC RESPONSE LEFT FACE AND NECK DESCRIBED. NO ORGANIZED ABSCESS. PROMINENT LYMPH NODES ARE LIKELY REACTIVE.
--- NOTE | 2016-10-14 23:03 | ED ---
Ines Talbert Erika, scribed for Fallon Pressley MD on 10/14/16 at 2201 . Skin Complaint - HPI Summary HPI Summary: Patient is a 70-year-old male presenting to the ED with a CC of constant left- sided facial swelling. Patient reports that he first noticed swelling of left side of the face about 4 days ago. There was no erythema at that time. Two days ago, patient was put on amoxicillin for the swelling. He reports that swelling has worsened since starting the amoxicillin, and he has developed erythema. EMS states pt had no notable hives. They do note discharge from patient's eyes. EMS gave 50 mg Benadryl. Patient has chronic dysarthria. Hx HTN, hyperlipidemia. - History of Current Complaint Time Seen by Provider: 10/14/16 21:20 Stated Complaint: ALLERGIC REACTION Hx Obtained From: Patient, EMS, Medical Records Onset/Duration: Started Days Ago, Atraumatic, Still Present Timing: Constant Onset Severity: Mild Current Severity: Moderate Skin Location: Face, Neck Character: Swelling, Redness Alleviating Symptom(s): Nothing - Additional Pertinent History Primary Care Physician: [id number] - Allergy/Home Medications Allergies/Adverse Reactions: Allergies Allergy/AdvReac Type Severity Reaction Status Date / Time Codeine Allergy Unknown Verified 10/02/16 05:20 Reaction Details Ibuprofen Allergy Unknown Verified 10/02/16 05:20 Reaction Details Morphine Allergy Unknown Verified 10/02/16 05:20 Reaction Details Rosuvastatin [From Crestor] Allergy Unknown Verified 10/02/16 05:20 Reaction Details PMH/Surg Hx/FS Hx/Imm Hx Endocrine/Hematology History: Denies: Hx Diabetes Cardiovascular History: Reports: Hx Angina, Hx Hypercholesterolemia, Hx Hypertension Denies: Hx Congestive Heart Failure GI History: Reports: Hx Hiatal Hernia History: Denies: Hx Dialysis, Hx Renal Disease Musculoskeletal History: Reports: Hx Arthritis Sensory History: Reports: Hx Contacts or Glasses Denies: Hx Hearing Aid Neurological History: Reports: Hx Developmental Delay Psychiatric History: Reports: Hx Anxiety - Immunization History Date of Tetanus Vaccine: up to date - Family History Known Family History: Positive: Cardiac Disease Negative: Hypertension, Diabetes - Social History Alcohol Use: None Hx Substance Use: No Substance Use Type: Reports: None Hx Tobacco Use: Yes Smoking Status (MU): Former Smoker Review of Systems Positive: Fever Positive: Drainage Skin: Other - redness and swelling to the left face and neck All Other Systems Reviewed And Are Negative: Yes Physical Exam Triage Information Reviewed: Yes Vital Signs On Initial Exam: Temp Pulse Resp BP Pulse Ox 102.7 F 137 15 148/77 94 10/14/16 21:32 10/14/16 21:32 10/14/16 21:32 10/14/16 21:32 10/14/16 21:37 Vital Signs Reviewed: Yes Appearance: Positive: Well-Appearing, No Pain Distress Skin: Positive: Warm, Skin Color Reflects Adequate Perfusion, Dry, Other - Induration and swelling over the right upper cheek extending down the neck. Erythema over the neck Eyes: Positive: EOMI, MADDY ENT: Positive: Pharynx normal, TMs normal, Trismus - mild Neck: Positive: Supple, Nontender Respiratory/Lung Sounds: Positive: Clear to Auscultation, Breath Sounds Present , Other - Airway seems fine. Negative: Rales, Rhonchi, Wheezes Cardiovascular: Positive: Tachycardia - at 137 bpm, Other - No gallops. Negative: Murmur, Rub Abdomen Description: Positive: Nontender, Soft, Other: - No rebound. Negative: Distended, Guarding Bowel Sounds: Positive: Present Musculoskeletal: Positive: Other - CANDELARIA. Negative: Edema Left, Edema Right Neurological: Positive: Sensory/Motor Intact, Alert, Oriented to Person Place, Time, Other - CN II-XII intact Psychiatric: Positive: Affect/Mood Appropriate Diagnostics - Vital Signs Vital Signs Temp Pulse Resp BP Pulse Ox 10/14/16 21:37 94 10/14/16 21:32 102.7 F 137 15 148/77 94 - Laboratory Lab Results: Lab Results 10/14/16 10/14/16 10/14/16 Range/Units 21:29 21:29 21:29 WBC 20.6 H (3.5-10.8) 10^3/ul RBC 3.90 L (4.0-5.4) 10^6/ul Hgb 11.4 L (14.0-18.0) g/dl Hct 35 L (42-52) % MCV 90 (80-94) fL MCH 29 (27-31) pg MCHC 32 (31-36) g/dl RDW 14 (10.5-15) % Plt Count 341 (150-450) 10^3/ul MPV 7 L (7.4-10.4) um3 Neut % (Auto) 86.1 H (38-83) % Lymph % (Auto) 6.3 L (25-47) % Loup % (Auto) 4.9 (1-9) % Eos % (Auto) 0.9 (0-6) % Baso % (Auto) 1.8 (0-2) % Absolute Neuts (auto) 17.8 H (1.5-7.7) 10^3/ul Absolute Lymphs (auto) 1.3 (1.0-4.8) 10^3/ul Absolute Monos (auto) 1.0 H (0-0.8) 10^3/ul Absolute Eos (auto) 0.2 (0-0.6) 10^3/ul Absolute Basos (auto) 0.4 H (0-0.2) 10^3/ul Absolute Nucleated RBC 0 10^3/ul Nucleated RBC % 0 INR (Anticoag Therapy) 1.15 H (0.89-1.11) Sodium 137 (133-145) mmol/L Potassium 3.1 L (3.5-5.0) mmol/L Chloride 103 (101-111) mmol/L Carbon Dioxide 25 (22-32) mmol/L Anion Gap 9 (2-11) mmol/L BUN 23 (6-24) mg/dL Creatinine 1.03 (0.67-1.17) mg/dL Est GFR ( Amer) 92.4 (>60) Est GFR (Non-Af Amer) 71.8 (>60) BUN/Creatinine Ratio 22.3 H (8-20) Glucose 91 (70-100) mg/dL Lactic Acid (0.5-2.0) mmol/L Calcium 8.5 L (8.6-10.3) mg/dL Total Bilirubin 0.40 (0.2-1.0) mg/dL AST 22 (13-39) U/L ALT 19 (7-52) U/L Alkaline Phosphatase 101 (34-104) U/L C-Reactive Protein 266.82 H (< 5.00) mg/L Total Protein 6.3 L (6.4-8.9) g/dL Albumin 3.1 L (3.2-5.2) g/dL Globulin 3.2 (2-4) g/dL Albumin/Globulin Ratio 1.0 (1-3) 10/14/16 Range/Units 21:29 WBC (3.5-10.8) 10^3/ul RBC (4.0-5.4) 10^6/ul Hgb (14.0-18.0) g/dl Hct (42-52) % MCV (80-94) fL MCH (27-31) pg MCHC (31-36) g/dl RDW (10.5-15) % Plt Count (150-450) 10^3/ul MPV (7.4-10.4) um3 Neut % (Auto) (38-83) % Lymph % (Auto) (25-47) % Loup % (Auto) (1-9) % Eos % (Auto) (0-6) % Baso % (Auto) (0-2) % Absolute Neuts (auto) (1.5-7.7) 10^3/ul Absolute Lymphs (auto) (1.0-4.8) 10^3/ul Absolute Monos (auto) (0-0.8) 10^3/ul Absolute Eos (auto) (0-0.6) 10^3/ul Absolute Basos (auto) (0-0.2) 10^3/ul Absolute Nucleated RBC 10^3/ul Nucleated RBC % INR (Anticoag Therapy) (0.89-1.11) Sodium (133-145) mmol/L Potassium (3.5-5.0) mmol/L Chloride (101-111) mmol/L Carbon Dioxide (22-32) mmol/L Anion Gap (2-11) mmol/L BUN (6-24) mg/dL Creatinine (0.67-1.17) mg/dL Est GFR ( Amer) (>60) Est GFR (Non-Af Amer) (>60) BUN/Creatinine Ratio (8-20) Glucose (70-100) mg/dL Lactic Acid 0.7 (0.5-2.0) mmol/L Calcium (8.6-10.3) mg/dL Total Bilirubin (0.2-1.0) mg/dL AST (13-39) U/L ALT (7-52) U/L Alkaline Phosphatase (34-104) U/L C-Reactive Protein (< 5.00) mg/L Total Protein (6.4-8.9) g/dL Albumin (3.2-5.2) g/dL Globulin (2-4) g/dL Albumin/Globulin Ratio (1-3) Result Diagrams: 10/14/16 21:29 10/14/16 21:29 Lab Statement: Any lab studies that have been ordered have been reviewed, and results considered in the medical decision making process. - Radiology CXR Radiology Interpretation Completed By: Radiologist - IMPRESSION: NO ACTIVE DISEASE Course/Dx - Course Course Of Treatment: 70 yo male with history of intellectual disability comes in with increased swelling to the left side of his face after being put on abx 2 days ago for cheek swellling ,wbc is 20k, hr is in the 120's and temp is up. CT shows cellulitis of the face down through the clavicle. Pt does have discharge from the left eye with extensive swelling but have normal eomi. Pt given 30 cc/kg of normal saline with vanco on arrival, clinda added after CT, case to be discussed with Ly and has already been discussed with Dr. Harrell. Pt does have very mild trismus and a good amount of edema. no submental edema no dental pain - Diagnoses Provider Diagnoses: Erysipelas Discharge - Discharge Plan Condition: Stable Disposition: ADMITTED TO [facility] The documentation as recorded by the Ines turner Erika accurately reflects the service I personally performed and the decisions made by me, Fallon Pressley MD.
[2016-10-14] MEDS ORDERED: NS 0.9% 1000 ML* 1,000 ML IV ONE (23:05)
[2016-10-15] MEDS ORDERED: Morphine INJ* 2 MG/ML 1 ML SYRINGE IV PRN (00:04)
[2016-10-15] MEDS ORDERED: Ondansetron INJ* 2 MG/ML VIAL IV PRN (00:04)
[2016-10-15] MEDS ORDERED: Al Hydrox/Mg Hydrox/Simet LIQ* 30 ML UDC PO PRN (00:04)
[2016-10-15] MEDS ORDERED: Levofloxacin 750 MG IVPREMIX(* 750 MG/150 ML BAG IVPB ONE (00:13)
[2016-10-15] MEDS ORDERED: Vancomycin(*) 0 MG in NS 0.9% 250 ML* 250 ML IVPB SCH (01:00)
[2016-10-15] MEDS ORDERED: Vancomycin per Pharmacy* NOTE FOLLOW UP SCH (01:00)
[2016-10-15] MEDS: NS 0.9% w/ 20 Meq KCL 1000 ML* 1,000 ML IV SCH ×3 (01:14→21:50)
[2016-10-15] MEDS ORDERED: HYDROmorphone* 1 MG/ML 1 ML SYR IV SLOW PU PRN (02:11)
[2016-10-15] MEDS: Vancomycin(*) 1,000 MG in NS 0.9% 250 ML* 250 ML IVPB SCH ×3 (05:46→21:50)
[2016-10-15] MEDS: Clindamycin 600 MG IVPREMIX(* 600 MG/50 ML SDV IV SCH ×2 (05:46→12:51)
[2016-10-15] MEDS: Heparin VIAL(*) 5000 UNITS/ML VIAL (FIVE THOUSAND) SUBCUT SCH ×3 (05:46→21:50)
[2016-10-15 06:01] LABS: Hematocrit 31 % (42-52); Hemoglobin 10.2 g/dl (14.0-18.0); Mean Corpuscular HGB Conc 33 g/dl (31-36); Mean Corpuscular Hemoglobin 30 pg (27-31); Mean Corpuscular Volume 91 fL (80-94); Mean Platelet Volume 6 um3 (7.4-10.4); Red Blood Count 3.41 10^6/ul (4.0-5.4); Red Cell Distribution Width 14 % (10.5-15); White Blood Count 18.2 10^3/ul (3.5-10.8)
[2016-10-15 06:17] LABS: BUN/Creatinine Ratio 23.7 (8-20); Calcium 7.9 mg/dL (8.6-10.3); EGFR African American 103.9 (>60); EGFR Non-African American 80.8 (>60); Potassium 3.1 mmol/L (3.5-5.0)
[2016-10-15 06:51] LABS: C Reactive Protein 250.8 mg/L (< 5.00)
--- NOTE | 2016-10-15 09:13 | HP ---
HISTORY AND PHYSICAL: DATE OF ADMISSION: 10/15/16 TIME OF EVALUATION: 0000 hours. PRIMARY CARE PHYSICIAN: Liam Patel MD. CHIEF COMPLAINT: Left-sided facial swelling, redness, and pain. HISTORY OF PRESENT ILLNESS: This is a 70-year-old male with a past medical history of mild cognitive impairment, who presented to the emergency room with left-sided facial pain and swelling. The patient states he was diagnosed with a tooth abscess on his upper and lower molars on the left side. Two days ago he was started on amoxicillin, he states since then things went downhill from there, with swelling, redness, and pain. He plans to go back to the dentist to have his teeth pulled, he states, on the . The patient denies any eye pain. He states his left eye has been swollen shut since this morning, for the past 12 hours. He denies any chest pain. No shortness of breath. No difficulty clearing his secretions. No fevers or chills. Otherwise remaining review of systems is negative. As mentioned, the patient has difficulty talking with the swelling, and he also has underlying dysarthria at baseline. In the emergency room, the patient had labs, imaging, ENT was notified, and he was being admitted for facial cellulitis. He was given clindamycin 900 mg IV, 2 L of normal saline, and vancomycin, and was referred to the hospitalist service for further evaluation. PAST MEDICAL HISTORY: 1. Recent admission on 10/02/16, found to have chronic dysarthria. 2. Hypertension. 3. Hyperlipidemia. 4. Asthma. 5. Mild cognitive impairment. 6. History of sinus tach. 7. Hypothyroidism. 8. History of chronic leukocytosis. 9. GERD. 10. BPH. 11. Restless leg. 12. Osteoarthritis. MEDICATIONS: The patient states he provided the list, but no one has this list , so this is unknown. We recommend calling the pharmacy in the morning to get a confirmed medication reconciliation. The patient was started on amoxicillin t.i.d. 2 days ago. ALLERGIES: CODEINE, IBUPROFEN, MORPHINE, and ROSUVASTATIN. FAMILY HISTORY: Reviewed and noncontributory SOCIAL HISTORY: The patient lives alone at [facility]. He is independent of his ADLs. He does not drive. He quit smoking in the 70s. No alcohol use and no illicit use. His healthcare proxy is his brother, Kavon Gasca, cellphone number [phone], home number [phone]. REVIEW OF SYSTEMS: As mentioned in the HPI. PHYSICAL EXAMINATION GENERAL: In no acute distress. Resting comfortably. VITAL SIGNS: Temp 102.7, pulse rate 137, respiratory rate 15, oxygen saturation 94% on 2 L, blood pressure 148/77. HEENT: The patient with diffuse erythema on the left side of his face with induration over the left cheek. His left eye is edematous, unable to be opened , with purulent drainage on the outer rim of it. Oropharynx: Mucous membranes are dry. Limited exam due to difficulty opening his mouth fully. He does have adenopathy. NECK: Anterior cervical adenopathy on the left side. No nuchal rigidity. RESPIRATORY: Clear to auscultation. No wheezing, rhonchi, or rales. CARDIAC: Tachycardia with ectopic beats, I do not appreciate any murmur. ABDOMEN: Soft, nontender, and nondistended. EXTREMITIES: No clubbing, cyanosis, or edema. NEUROLOGIC: Alert and oriented x3. No focal neurological deficits. DIAGNOSTIC STUDIES/LAB DATA: White count 20.6, hemoglobin 11.4, hematocrit 35 , platelets 341, neutrophil percentage 86. INR 1.15. Sodium 137, potassium 3.1 , chloride 103, bicarb 25, BUN 23, and creatinine 1.03. CRP 266. Radiographic Data: Neck CT, diffuse cellulitic response, left face and neck as described. No organized abscess, prominent lymph nodes are likely reactive. Chest x-ray: No active disease. ASSESSMENT AND PLAN: This is a 70-year-old male with past medical history of cognitive impairment who presents with worsening left-sided facial redness, swelling, and pain, found to have cellulitis in the setting of a recent tooth abscess, on amoxicillin. Left facial cellulitis: Assessment: The patient has pronounced erythema, edema on the left face, and concern for progression with airway compromise in the setting of recent tooth abscess, started on amoxicillin. The patient with leukocytosis and fever. He had blood cultures drawn in the emergency room. No airway compromise at this time, but I am concerned for progression of this. I did speak with Dr. Mcginnis, who confirmed that there is no orbital cellulitis on the CAT scan, it is preseptal cellulitis. Plan: We will admit him to ICU overnight for close monitoring of edema. We will do a nursing bedside swallow, but we will keep him n.p.o. tonight and will give him a dose of Gram-negative coverage with Levaquin and continue him on the vanco and clindamycin for now. Follow up on the blood cultures. ENT is going to see him in the morning and follow up with that as well. We will repeat his labs. CHRONIC MEDICAL PROBLEMS: Recommend calling the pharmacy in the morning to get his medications reconciled. He is not safe to take any p.o. at this time. FEN: As mentioned, n.p.o., IV fluids. DVT prophylaxis: Scores high risk. We will place him on heparin subcu t.i.d. Code status: Full code. Disposition: The patient is anxious and I am going to give his brother a call to let him know he is here, as the patient is requesting him to come visit him. PATIENT TIME: Greater than 90 minutes was spent doing the history and physical , more than half the time was spent in direct patient contact. CC: Liam Patel MD* [id number]/CPS #: [id number] MADHAVI
[2016-10-15] MEDS ORDERED: HYDROmorphone* 1 MG/ML 1 ML SYR IV PRN (13:46)
[2016-10-15] MEDS ORDERED: Acetaminophen TAB* 325 MG PO PRN (13:48)
[2016-10-15] MEDS ORDERED: Dexamethasone IV* 8 MG in NS 0.9% 50 ML* 50 ML IVPB ONE (17:32)
[2016-10-15] MEDS: Clindamycin 900 MG IVPREMIX(* 900 MG/50 ML SDV IV SCH (20:20)
[2016-10-15] MEDS ORDERED: NS 0.9% 250 ML* 250 ML ONE (21:47)
--- NOTE | 2016-10-16 00:26 | CONS ---
CONSULTATION: DATE OF CONSULT: 10/15/16 ATTENDING PHYSICIAN: Hospitalist service, Dr. Caleb Raines. BRIEF HISTORY: This 70-year-old gentleman presented with a left-sided facial swelling, had a recent history of dental infection progressing to a left independent living advisor space cellulitis. The patient was admitted to the ICU for management of infection. PHYSICAL EXAMINATION: On examination, ear canal is clear. Facial skin is normal. Erythema of the left cheek. Moderate trismus in the buccal space, tenderness. Third molar, second molar infected on the upper and lower. No airway compromise. Neck examination is unremarkable. CLINICAL IMPRESSION: Left independent living advisor space abscess, buccal mucosa erythema and edema. The patient has been scheduled with Dr. Zuniga to have his tooth removed. He should continue on IV clindamycin until then and may be discharged home tomorrow for Dr. Zuniga to remove his teeth in the office. [id number]/CPS #: [id number] MTDD
[2016-10-16] MEDS ORDERED: Levofloxacin 750 MG IVPREMIX(* 750 MG/150 ML BAG IVPB SCH (01:00)
[2016-10-16] MEDS: Clindamycin 900 MG IVPREMIX(* 900 MG/50 ML SDV IV SCH (03:56)
[2016-10-16] MEDS ORDERED: Vancomycin Trough Check NOTE FOLLOW UP ONE (05:30)
--- NOTE | 2016-10-16 05:42 | DS ---
DISCHARGE SUMMARY: DATE OF ADMISSION: 10/15/16 DATE OF DISCHARGE: 10/16/16 STATUS DURING HOSPITALIZATION: Inpatient. PRIMARY CARE PROVIDER: Liam Patel MD CONSULTING ENT: Dr. Sean Modi. CONSULTING ORAL MAXILLOFACIAL SURGEON: Dr. William Zuniga. PRINCIPAL DISCHARGE DIAGNOSIS: Left-sided facial cellulitis with redness and pain and orbital edema secondary to both upper and lower dental abscesses with failed outpatient antibiotic treatment and progression before infection controlled. SECONDARY DIAGNOSES: 1. Recent admission in September 2016 with chronic dysarthria, question of cerebrovascular accident. 2. Hypertension. 3. Hyperlipidemia. 4. Asthma. 5. Mild cognitive impairment. 6. History of sinus tachycardia. 7. Hypothyroidism. 8. Chronic leukocytosis. 9. Gastroesophageal reflux disease. 10. Benign prostatic hypertrophy. 11. Restless legs. 12. Osteoarthritis. DISCHARGE MEDICATION REGIMEN: New medication, clindamycin 300 mg by mouth 3 times daily, prescription e-sent to outpatient pharmacy ([facility] [place] ). Continue: 1. Etodolac 400 mg by mouth twice daily. 2. Acetaminophen 650 mg by mouth every 4 hours p.r.n. pain/fever (prescribed). 3. Aspirin 325 mg by mouth 3 times daily p.r.n. (hold around dental procedures as per Dr. Zuniga). 4. Cyclobenzaprine/Flexeril 10 mg by mouth 3 times daily as needed. 5. Famotidine/Pepcid 200 mg by mouth twice daily. 6. Ferrous sulfate 325 mg by mouth daily. 7. Levothyroxine/Synthroid 112 mcg by mouth daily. 8. Lisinopril 10 mg by mouth daily. 9. Multivitamin with minerals 1 tablet by mouth once daily. 10. Zofran 4 mg tablets 8 mg by mouth 3 times daily as needed for nausea/ vomiting. 11. Pentoxifylline/Trental 400 mg by mouth 3 times daily. 12. Sucralfate 1 g by mouth 3 times daily. 13. Tamsulosin/Flomax 0.4 mg by mouth twice daily. 14. Thioridazine 25 mg by mouth twice daily (Mellaril). 15. Ropinirole/Requip 9 mg by mouth 3 times daily (unconfirmed dose). The patient recommended to take previous dosing. HISTORY OF PRESENT ILLNESS/HOSPITAL COURSE: Please see the H and P by Dr. Beata Harrell at midnight on 10/15/16. In brief, Mr. Gasca is a 70-year-old gentleman with a past medical history of cognitive impairment who came to the emergency room with left-sided facial pain and swelling. He says he was diagnosed with tooth abscesses on the upper and lower molars on his left side, and 2 days ago, was started on amoxicillin. The patient had very severe swelling, redness, and pain. He has been told that he needs these teeth extracted and he has an appointment for the , but in the interim, the situation has gotten so bad that he came to the hospital. He is having difficulty with swallowing. He was started on an array of antibiotics including clindamycin, vancomycin, and Levaquin IV. The patient was placed in the ICU for concern of airway edema. The patient was seen by ENT and they assured that the airway was not at risk and the patient was subsequently seen by oral maxillofacial surgery, who agreed the teeth need to be extracted in the near future. The patient is being continued on IV antibiotics and has received IV steroids and is going to be discharged directly to Dr. Matthew Zuniga's office on Sunday morning providing the patient remains stable. To that end, the patient is continuing to have rather significant fevers up to 103 degrees Fahrenheit. He is suppressed with Tylenol and will continue that. He is being aggressively hydrated with 125 mL of normal saline. He is not structurally a large-framed individual and so I am concerned about fluid overload in this situation. His pulse is in the 130s, but he states his baseline is approximately 110, so it is potentially a confusing picture with this high temperature and tachycardia and fairly significant facial infection. Having said that, Dr. Zuniga was pleased with the progress he has made so far and his swelling seems to be receding. Source control and molar extraction is the next step and that will be best accomplished at Dr. Zuniga's office and so the patient is being prepared for an early childhood director discharge, in which his brother will drive him to Dr. Zuniga's office for tooth extraction. If there is any complication, the patient can come back for continued IV antibiotics, but I have tentatively ordered Cleocin/clindamycin 300 mg by mouth 3 times daily. Any further steroids can be ordered by Dr. Zuniga. The patient has received a dose of IV Decadron in the hospital. TIME SPENT: Total time taken to prepare Mr. Gasca's discharge was 60 minutes, greater than half the time spent at the bedside going over the discharge instructions [id number] with the patient. If there are any questions regarding this hospitalization, please direct them to Dr. Caleb Raines at [phone] and then by pager. CONDITION AT TRANSFER: Stable. CC: Liam Patel MD; Dr. Sean Modi; Dr. William Zuniga. * [id number]/CPS #: [id number] MTDD
[2016-10-16] MEDS: Vancomycin(*) 1,000 MG in NS 0.9% 250 ML* 250 ML IVPB SCH (05:45)
[2016-10-16] MEDS: Heparin VIAL(*) 5000 UNITS/ML VIAL (FIVE THOUSAND) SUBCUT SCH (05:46)
[2016-10-16 07:45] VITALS: BP 139/74
--- NOTE | 2016-10-18 15:44 | ED ---
David Talbert Anna, scribed for Fallon Pressley MD on 10/14/16 at 2307 . Progress - Progress Note Progress Note: SOFT TISSUE CT IMPRESSION, READ BY RADIOLOGIST: DIFFUSE CELLULITIC RESPONSE LEFT FACE AND NECK DESCRIBED. NO ORGANIZED ABSCESS. PROMINENT LYMPH NODES ARE LIKELY REACTIVE. Course/Dx - Course Course Of Treatment: 70 yo male with history of intellectual disability comes in with increased swelling to the left side of his face after being put on abx 2 days ago for cheek swellling ,wbc is 20k, hr is in the 120's and temp is up. CT shows cellulitis of the face down through the clavicle. Pt does have discharge from the left eye with extensive swelling but have normal eomi. Pt given 30 cc/kg of normal saline with vanco on arrival, clinda added after CT, case to be discussed with Ly and has already been discussed with Dr. Harrell. Pt does have very mild trismus and a good amount of edema. no submental edema no dental pain - Diagnoses Provider Diagnoses: Erysipelas The documentation as recorded by the David turner Anna accurately reflects the service I personally performed and the decisions made by me, Fallon Pressley MD.
== END 2016-10-16 07:40 | disposition home or self-care (01) ==
LOC: ED 21:19 → ICU 10-15 00:26 → INTOOBSV 10-15 00:26 → MEDTELE 10-15 19:51
PROVIDERS: ADMIT Pediatrics; ATTEND Internal Medicine
DX: L03.211 Cellulitis of face (principal); R60.9 Edema, unspecified; K04.7 Periapical abscess without sinus; I10 Essential (primary) hypertension; E78.5 Hyperlipidemia, unspecified; J45.909 Unspecified asthma, uncomplicated; E03.9 Hypothyroidism, unspecified; D72.829 Elevated white blood cell count, unspecified; K21.9 Gastro-esophageal reflux disease without esophagitis; N40.0 Benign prostatic hyperplasia without lower urinary tract symptoms; G25.81 Restless legs syndrome; Z79.899 Other long term (current) drug therapy; Z88.5 Allergy status to narcotic agent; Z88.6 Allergy status to analgesic agent; Z88.8 Allergy status to other drugs, medicaments and biological substances; G31.84 Mild cognitive impairment of uncertain or unknown etiology; Z87.891 Personal history of nicotine dependence
CPT/HCPCS: 36415; 70491; 71010; 80048; 80053; 80202; 83605; 85025; 85610; 86140; 87040; 87641; 96365; 96366; 96372; 96375; 96376; 99291; A9270-GY; G0378; J1100; J1170; J1644; J2930; J3370; Q9967

== ENCOUNTER → 2016-11-18 19:53 | Emergency (ER) | payer MEDICARE, MEDICAID ==
[~2016-11-18 19:53] MED LIST: traMADol TAB* 50 MG PO ONE
--- NOTE | 2016-11-18 22:42 | RAD ---
INDICATION: Left shoulder injury. TECHNIQUE: 4 views of the left shoulder were obtained. FINDINGS: The bones are osteopenic. There is severe arthritic change with erosive and hypertrophic changes within the humeral head and glenoid process of the scapula. No fracture or subluxation is seen. IMPRESSION: SEVERE ARTHRITIC CHANGE, NO EVIDENCE FOR FRACTURE.
--- NOTE | 2016-11-18 22:44 | RAD ---
INDICATION: Right shoulder injury. COMPARISON: Comparison is made with a prior x-ray study of the right humerus from August 24, 2016. TECHNIQUE: 4 views of the right shoulder were obtained. FINDINGS: The bones are osteopenic. There is superior subluxation of the humeral head which is unchanged from the prior exam. No fracture is seen. There is severe arthritic change with erosive and hypertrophic changes in the humeral head and glenoid process of the scapula. IMPRESSION: 1. SUPERIOR SUBLUXATION OF THE HUMERAL HEAD, UNCHANGED. 2. NO EVIDENCE FOR FRACTURE. 3. SEVERE ARTHRITIC CHANGE.
[2016-11-18 23:59] VITALS: BP 132/73
--- NOTE | 2016-11-19 14:23 | ED ---
Jose C Talbert Matthew, scribed for Dorian Garcia MD on 11/18/16 at 2256 . Upper Extremity Pain - HPI Summary HPI Summary: A 70 y/o male presents to the ED with constant bilateral shoulder pain. The pain is rated 8/10 on the right and 10/10 on the left. He states that he was shopping at [employer] and was carrying groceries, which worsened the pain. Associated symptoms include numbness/tingling in the hands and upper arm swelling. He took ibuprofen, Flexeril, and aspirin [employer]IN FINISH[employer] without relief. - History of Current Complaint Chief Complaint: EDShouldJackiej Stated Complaint: BI LATERAL SHOULDER PAIN Time Seen by Provider: 11/18/16 20:44 Hx Obtained From: Patient Mechanism Of Injury: Unknown Onset/Duration: Atraumatic, Still Present Timing: Constant Severity Initially: Moderate Severity Currently: Moderate Pain Location: Shoulder - bilateral Aggravating Factor(s): Movement, Other - Passive and Active ROM Alleviating Factor(s): Nothing Associated Signs & Symptoms: Positive: Swelling - shoulders bilateral, Numbness/ Tingling - hands bilateral - Allergies/Home Medications Allergies/Adverse Reactions: Allergies Allergy/AdvReac Type Severity Reaction Status Date / Time Codeine Allergy Unknown Verified 11/18/16 21:53 Reaction Details Ibuprofen Allergy Unknown Verified 11/18/16 21:53 Reaction Details Morphine Allergy Unknown Verified 11/18/16 21:53 Reaction Details Rosuvastatin [From Crestor] Allergy Unknown Verified 11/18/16 21:53 Reaction Details PMH/Surg Hx/FS Hx/Imm Hx Endocrine/Hematology History: Denies: Hx Diabetes Cardiovascular History: Reports: Hx Angina, Hx Hypercholesterolemia, Hx Hypertension Denies: Hx Congestive Heart Failure GI History: Reports: Hx Gastroesophageal Reflux Disease, Hx Hiatal Hernia History: Denies: Hx Dialysis, Hx Renal Disease Musculoskeletal History: Reports: Hx Arthritis Sensory History: Reports: Hx Contacts or Glasses, Hx Eye Injury - eyes swollen shut Denies: Hx Hearing Aid Opthamlomology History: Reports: Hx Contacts or Glasses, Hx Eye Injury - eyes swollen shut Neurological History: Reports: Hx Developmental Delay, Hx Migraine, Hx Transient Ischemic Attacks (TIA) Psychiatric History: Reports: Hx Anxiety - Immunization History Date of Tetanus Vaccine: up to date Infectious Disease History: No Infectious Disease History: Denies: Traveled Outside the [place] in Last 30 Days - Family History Known Family History: Positive: Cardiac Disease Negative: Hypertension, Diabetes - Social History Alcohol Use: None Hx Substance Use: No Substance Use Type: Reports: None Hx Tobacco Use: Yes Smoking Status (MU): Former Smoker Review of Systems Constitutional: Negative Eyes: Negative ENT: Negative Cardiovascular: Negative Respiratory: Negative Gastrointestinal: Negative Genitourinary: Negative Positive: Myalgia - Bilateral shoulder pain to passive and active ROM, Edema - bilateral shoulders Skin: Negative Positive: Numbness - & Tingling bilateral hands Psychological: Normal All Other Systems Reviewed And Are Negative: Yes Physical Exam Triage Information Reviewed: Yes Vital Signs On Initial Exam: Initial Vitals Temp Pulse Resp BP Pulse Ox 97.3 F 110 18 117/81 96 11/18/16 19:57 11/18/16 19:57 11/18/16 19:57 11/18/16 19:57 11/18/16 19:57 Vital Signs Reviewed: Yes Appearance: Positive: Pain Distress - mild to moderate Skin: Positive: Warm, Skin Color Reflects Adequate Perfusion, Dry Head/Face: Positive: Normal Head/Face Inspection Eyes: Positive: Normal ENT: Positive: Normal ENT inspection Neck: Positive: Supple, Nontender Respiratory/Lung Sounds: Positive: Clear to Auscultation, Breath Sounds Present Cardiovascular: Positive: RRR Abdomen Description: Positive: Nontender, Soft Bowel Sounds: Positive: Present Musculoskeletal: Positive: Other - Bilateral shoulders tender to passive/active ROM and palpation. Neurological: Positive: Normal, Sensory/Motor Intact, Alert, Oriented to Person Place, Time Psychiatric: Positive: Affect/Mood Appropriate Diagnostics - Vital Signs Vital Signs Temp Pulse Resp BP Pulse Ox 11/18/16 20:48 97.3 F 110 18 117/81 97 11/18/16 19:57 97.3 F 110 18 117/81 96 - Laboratory Lab Statement: Any lab studies that have been ordered have been reviewed, and results considered in the medical decision making process. - Radiology RT Shoulder XR Xray Interpretation: No Acute Changes - IMPRESSION: 1. SUPERIOR SUBLUXATION OF THE HUMERAL HEAD, UNCHANGED. 2. NO EVIDENCE FOR FRACTURE. 3. SEVERE ARTHRITIC CHANGE. Radiology Interpretation Completed By: Radiologist LT Shoulder XR Xray Interpretation: No Acute Changes - IMPRESSION: SEVERE ARTHRITIC CHANGE, NO EVIDENCE FOR FRACTURE. Radiology Interpretation Completed By: Radiologist Course/Dx - Course Course Of Treatment: Mr. Wood came in concerned because both (L>R) of his shoulders hurt a lot more than usual after carrying some bags of groceries today. He was insistent on x-rays and although I felt there would be a low yield, for his reassurance I did obtain them. He got better with tramadol while waitng for the x-rays which were unchanged. - Diagnoses Provider Diagnoses: Shoulder strain Discharge - Discharge Plan Condition: Stable Disposition: HOME Patient Education Materials: Shoulder Pain (ED) Referrals: Liam Patel MD [Primary Care Provider] - 3 Days Additional Instructions: Please follow-up with your primary care physician in 3 days. The documentation as recorded by the Jose C turner Matthew accurately reflects the service I personally performed and the decisions made by me, Dorian Garcia MD.
== END | disposition home or self-care (01) ==
LOC: ED 19:53
DX: S46.919A Strain of unspecified muscle, fascia and tendon at shoulder and upper arm level, unspecified arm, initial encounter (principal); R20.0 Anesthesia of skin; X50.0XXA Overexertion from strenuous movement or load, initial encounter; X50.9XXA Other and unspecified overexertion or strenuous movements or postures, initial encounter; Y93.9 Activity, unspecified; Y92.9 Unspecified place or not applicable
CPT/HCPCS: 99284; A9270-GY

== ENCOUNTER 2016-11-30 09:08 | Emergency (ER) | payer MEDICARE, MEDICAID ==
[2016-11-30] MEDS ORDERED: NS 0.9% 1000 ML* 1,000 ML IV ONE ×2 (09:33→10:45)
--- NOTE | 2016-11-30 10:16 | RAD ---
INDICATION: Weakness COMPARISON: October 02, 2016 TECHNIQUE: Noncontrast axial source images were acquired from the skull base to the vertex. FINDINGS: Ventricles/sulci: There is mild age-related cortical atrophy with compensatory dilatation of the CSF spaces. Brain parenchyma: There is no focal parenchymal finding, evidence of intracranial mass, or intracranial mass effect. Intracranial hemorrhage:None. Extra-axial spaces: There are no abnormal extra axial fluid collections or evidence of extra-axial mass. Calvarium: There is no calvarial fracture or other calvarial abnormality. Scalp: There is no evidence of scalp or extracalvarial soft tissue abnormality. Paranasal sinuses/mastoid: The paranasal sinuses and mastoid air cells are clear. Other: None. IMPRESSION: No acute intracranial findings.
[2016-11-30 10:17] LABS: Hematocrit 37 % (42-52); Hemoglobin 12.3 g/dl (14.0-18.0); Mean Corpuscular HGB Conc 34 g/dl (31-36); Mean Corpuscular Hemoglobin 31 pg (27-31); Mean Corpuscular Volume 92 fL (80-94); Mean Platelet Volume 7 um3 (7.4-10.4); Red Blood Count 3.99 10^6/ul (4.0-5.4); Red Cell Distribution Width 17 % (10.5-15); White Blood Count 7.6 10^3/ul (3.5-10.8)
[2016-11-30 10:27] LABS: Albumin 3.4 g/dL (3.2-5.2); BUN/Creatinine Ratio 15.5 (8-20); Calcium 8.7 mg/dL (8.6-10.3); Globulin 2.8 g/dL (2-4); Potassium 4.1 mmol/L (3.5-5.0); Total Bilirubin 0.3 mg/dL (0.2-1.0); Total Protein 6.2 g/dL (6.4-8.9)
[2016-11-30 10:28] LABS: Troponin I 0.03 ng/mL (<0.04)
--- NOTE | 2016-11-30 10:37 | RAD ---
HISTORY: Weakness COMPARISONS: October 14, 2016 VIEWS: 2: Frontal and lateral views of the chest. FINDINGS: CARDIOMEDIASTINAL SILHOUETTE: The cardiomediastinal silhouette is normal. SOFYA: The sofya are normal. PLEURA: The costophrenic angles are sharp. No pleural abnormalities are noted. LUNG PARENCHYMA: The lungs are clear. ABDOMEN: The upper abdomen is clear. There is no subphrenic gas. BONES AND SOFT TISSUES: There are advanced degenerative changes of the shoulders. There is diffuse osteopenia. There is an age-indeterminate compression deformity of the midthoracic spine, without appreciable osseous retropulsion. OTHER: None. IMPRESSION: 1. OSTEOPENIA WITH AN AGE-INDETERMINATE COMPRESSION DEFORMITY OF THE MIDTHORACIC SPINE. 2. NO ACTIVE CARDIOPULMONARY DISEASE
[2016-11-30] MEDS ORDERED: Nitroglycerin TAB 0.4 MG* 0.4 MG TAB SL ONE (10:44)
[2016-11-30 12:23] LABS: Urine Bacteria Absent (Absent); Urine Bilirubin Negative (Negative); Urine Glucose Negative (Negative); Urine Nitrite Negative (Negative)
[2016-11-30] MEDS ORDERED: Carisoprodol TAB* 350 MG PO ONE (12:40)
[2016-11-30 13:31] VITALS: BP 130/86
--- NOTE | 2016-11-30 18:26 | ED ---
rona Talbert Timothy, scribed for Bharath Moseley MD on 11/30/16 at 0933 . Neurological HPI - HPI Summary HPI Summary: Harinder Gasca is a 70 yo male presenting to [facility] with possible CVA, BIBA. Pt states he has 5/10 pain bilaterally in his upper extremities, and per his [place] [facility] he had numbness and weakness in all extremities and slurred speech. Currently he denies any weakness or slurred speech. He states he had Sx of stroke this morning, but they have resolved. He denies any recent Hx of fall. He states his heart rate has been high his whole life. He is currently on antibiotics. His MHx includes CAD, angina, HLD, HTN, migraine, CVA, TIA, GERD, hiatal hernia, arthritis, anxiety, tobacco use, developmental delay. - History of Current Complaint Chief Complaint: EDNeurologicalDeficit Stated Complaint: POSSIBLE CVA Time Seen by Provider: 11/30/16 09:27 Hx Obtained From: Patient Onset/Duration: Sudden Onset Timing: Intermittent Episodes Lasting: - minutes Onset Severity: Moderate Current Severity: Mild Pain Intensity: 5 Pain Scale Used: 0-10 Numeric Character: Motor Weakness, Impaired Speech - Additional Pertinent History Primary Care Physician: [id number] - Allergy/Home Medications Allergies/Adverse Reactions: Allergies Allergy/AdvReac Type Severity Reaction Status Date / Time Codeine Allergy Unknown Verified 11/18/16 21:53 Reaction Details Ibuprofen Allergy Unknown Verified 11/18/16 21:53 Reaction Details Morphine Allergy Unknown Verified 11/18/16 21:53 Reaction Details Rosuvastatin [From Crestor] Allergy Unknown Verified 11/18/16 21:53 Reaction Details Home Medications: Home Medications Amoxicillin CAP* [Amoxicillin 500 MG CAP*] 500 mg PO TID 11/30/16 [History Confirmed 11/30/16] Carisoprodol [Soma] 250 mg PO BID PRN 11/30/16 [History Confirmed 11/30/16] Furosemide TAB* [Lasix TAB*] 20 mg PO DAILY 11/30/16 [History Confirmed 11/30/16 ] Ibuprofen TAB* [Advil TAB*] 400 mg PO TID 11/30/16 [History Confirmed 11/30/16] Levothyroxine TAB* [Synthroid TAB*] 137 mcg PO DAILY 11/30/16 [History Confirmed 11/30/16] Metronidazole [Flagyl 500 MG TAB] 500 mg PO QID 11/30/16 [History Confirmed ] Multiple Vitamins W/ Minerals [Eye Vitamins & Minerals] 1 tab PO BID 11/30/16 [ History Confirmed 11/30/16] Nutritional Supplements [Ensure] 1 liq PO TID 11/30/16 [History Confirmed ] Ondansetron HCl [Zofran 8 MG TAB] 8 mg PO TID PRN 11/30/16 [History Confirmed ] Pentoxifylline CR TAB* [TRENtal CR TAB*] 400 mg PO TID 11/30/16 [History Confirmed 11/30/16] PMH/Surg Hx/FS Hx/Imm Hx Endocrine/Hematology History: Denies: Hx Diabetes Cardiovascular History: Reports: Hx Angina, Hx Hypercholesterolemia, Hx Hypertension Denies: Hx Congestive Heart Failure GI History: Reports: Hx Gastroesophageal Reflux Disease, Hx Hiatal Hernia History: Denies: Hx Dialysis, Hx Renal Disease Musculoskeletal History: Reports: Hx Arthritis Sensory History: Reports: Hx Contacts or Glasses, Hx Eye Injury - eyes swollen shut Denies: Hx Hearing Aid Opthamlomology History: Reports: Hx Contacts or Glasses, Hx Eye Injury - eyes swollen shut Neurological History: Reports: Hx Developmental Delay, Hx Migraine, Hx Transient Ischemic Attacks (TIA) Psychiatric History: Reports: Hx Anxiety - Immunization History Date of Tetanus Vaccine: up to date Infectious Disease History: Denies: Traveled Outside the [place] in Last 30 Days - Family History Known Family History: Positive: Cardiac Disease Negative: Hypertension, Diabetes - Social History Alcohol Use: None Hx Substance Use: No Substance Use Type: Reports: None Hx Tobacco Use: Yes Smoking Status (MU): Former Smoker Review of Systems Constitutional: Negative Eyes: Negative ENT: Negative Cardiovascular: Negative Respiratory: Negative Gastrointestinal: Negative Genitourinary: Negative Musculoskeletal: Negative Skin: Negative Positive: Weakness, Numbness, Slurred Speech Psychological: Normal All Other Systems Reviewed And Are Negative: Yes Physical Exam - Summary Physical Exam Summary: VITAL SIGNS: Reviewed. GENERAL: Patient is a well-developed and nourished elderly male who is lying comfortable in the stretcher. Patient is not in any acute respiratory distress. HEAD AND FACE: No signs of trauma. No ecchymosis, hematomas or skull depressions. No sinus tenderness. EYES: PERRLA, EOMI x 2, No injected conjunctiva, no nystagmus. EARS: Hearing grossly intact. Ear canals and tympanic membranes are within normal limits. MOUTH: Oropharynx within normal limits. No pharyngeal erythema. Diffuse dental cavities. Dry mouth. NECK: Supple, trachea is midline, no adenopathy, no JVD, no carotid bruit, no c- spine tenderness, neck with full ROM. CHEST: Symmetric, no tenderness at palpation LUNGS: Clear to auscultation bilaterally. No wheezing or crackles. CVS: Regular rate and rhythm, S1 and S2 present, no murmurs or gallops appreciated. ABDOMEN: Soft, non-tender. No signs of distention. No rebound no guarding, and no masses palpated. Bowel sounds are normal. EXTREMITIES: FROM in all major joints, no edema, no cyanosis or clubbing. NEURO: Alert and oriented x 3. No acute neurological deficits. Speech is normal and follows commands. There is no weakness. SKIN: Dry and warm Triage Information Reviewed: Yes Vital Signs On Initial Exam: Initial Vital Signs Temp 99.2 F 11/30/16 09:23 Pulse 110 11/30/16 09:23 Resp 20 11/30/16 09:23 BP 132/77 11/30/16 09:23 Pulse Ox 96 11/30/16 09:23 Vital Signs Reviewed: Yes Diagnostics - Vital Signs Vital Signs Temp Pulse Resp BP Pulse Ox 11/30/16 13:30 12 130/86 11/30/16 13:13 20 11/30/16 13:00 117 21 129/86 98 11/30/16 12:30 110 15 123/80 97 11/30/16 12:00 114 19 98 11/30/16 11:30 116 23 102/68 98 11/30/16 11:00 100/68 11/30/16 10:59 115 19 95 11/30/16 10:50 116 24 133/85 97 11/30/16 10:00 111 15 95 11/30/16 09:38 114 18 124/85 95 11/30/16 09:37 114 20 95 11/30/16 09:36 69 11/30/16 09:23 99.2 F 110 20 132/77 96 - Laboratory Lab Results: Lab Results 05/25/17 05/25/17 05/25/17 Range/Units 09:40 09:40 09:40 WBC 7.6 (3.5-10.8) 10^3/ul RBC 3.99 L (4.0-5.4) 10^6/ul Hgb 12.3 L (14.0-18.0) g/dl Hct 37 L (42-52) % MCV 92 (80-94) fL MCH 31 (27-31) pg MCHC 34 (31-36) g/dl RDW 17 H (10.5-15) % Plt Count 198 (150-450) 10^3/ul MPV 7 L (7.4-10.4) um3 Neut % (Auto) 74.0 (38-83) % Lymph % (Auto) 17.0 L (25-47) % [place] % (Auto) 6.2 (1-9) % Eos % (Auto) 2.1 (0-6) % Baso % (Auto) 0.7 (0-2) % Absolute Neuts (auto) 5.6 (1.5-7.7) 10^3/ul Absolute Lymphs (auto) 1.3 (1.0-4.8) 10^3/ul Absolute Monos (auto) 0.5 (0-0.8) 10^3/ul Absolute Eos (auto) 0.2 (0-0.6) 10^3/ul Absolute Basos (auto) 0.1 (0-0.2) 10^3/ul Absolute Nucleated RBC 0 10^3/ul Nucleated RBC % 0 INR (Anticoag Therapy) 0.98 (0.89-1.11) APTT 27.7 (26.0-36.3) seconds Sodium 133 (133-145) mmol/L Potassium 4.1 (3.5-5.0) mmol/L Chloride 102 (101-111) mmol/L Carbon Dioxide 23 (22-32) mmol/L Anion Gap 8 (2-11) mmol/L BUN 15 (6-24) mg/dL Creatinine 0.97 (0.67-1.17) mg/dL Est GFR ( Amer) 99.0 (>60) Est GFR (Non-Af Amer) 77.0 (>60) BUN/Creatinine Ratio 15.5 (8-20) Glucose 129 H (70-100) mg/dL Lactic Acid (0.5-2.0) mmol/L Calcium 8.7 (8.6-10.3) mg/dL Total Bilirubin 0.30 (0.2-1.0) mg/dL AST 21 (13-39) U/L ALT 19 (7-52) U/L Alkaline Phosphatase 68 (34-104) U/L Troponin I 0.03 (<0.04) ng/mL Total Protein 6.2 L (6.4-8.9) g/dL Albumin 3.4 (3.2-5.2) g/dL Globulin 2.8 (2-4) g/dL Albumin/Globulin Ratio 1.2 (1-3) Urine Color Urine Appearance Urine pH (5-9) Ur Specific [place] (1.010-1.030) Urine Protein (Negative) Urine Ketones (Negative) Urine Blood (Negative) Urine Nitrate (Negative) Urine Bilirubin (Negative) Urine Urobilinogen (Negative) Ur Leukocyte Esterase (Negative) Urine WBC (Auto) (Absent) Urine RBC (Auto) (Absent) Urine Bacteria (Absent) Hyaline Casts (Absent) Urine Glucose (Negative) Urine Ascorbic Acid (Negative) 11/30/16 11/30/16 11/30/16 Range/Units 09:40 12:05 12:36 WBC (3.5-10.8) 10^3/ul RBC (4.0-5.4) 10^6/ul Hgb (14.0-18.0) g/dl Hct (42-52) % MCV (80-94) fL MCH (27-31) pg MCHC (31-36) g/dl RDW (10.5-15) % Plt Count (150-450) 10^3/ul MPV (7.4-10.4) um3 Neut % (Auto) (38-83) % Lymph % (Auto) (25-47) % [place] % (Auto) (1-9) % Eos % (Auto) (0-6) % Baso % (Auto) (0-2) % Absolute Neuts (auto) (1.5-7.7) 10^3/ul Absolute Lymphs (auto) (1.0-4.8) 10^3/ul Absolute Monos (auto) (0-0.8) 10^3/ul Absolute Eos (auto) (0-0.6) 10^3/ul Absolute Basos (auto) (0-0.2) 10^3/ul Absolute Nucleated RBC 10^3/ul Nucleated RBC % INR (Anticoag Therapy) (0.89-1.11) APTT (26.0-36.3) seconds Sodium (133-145) mmol/L Potassium (3.5-5.0) mmol/L Chloride (101-111) mmol/L Carbon Dioxide (22-32) mmol/L Anion Gap (2-11) mmol/L BUN (6-24) mg/dL Creatinine (0.67-1.17) mg/dL Est GFR ( Amer) (>60) Est GFR (Non-Af Amer) (>60) BUN/Creatinine Ratio (8-20) Glucose (70-100) mg/dL Lactic Acid 1.8 (0.5-2.0) mmol/L Calcium (8.6-10.3) mg/dL Total Bilirubin (0.2-1.0) mg/dL AST (13-39) U/L ALT (7-52) U/L Alkaline Phosphatase (34-104) U/L Troponin I 0.02 (<0.04) ng/mL Total Protein (6.4-8.9) g/dL Albumin (3.2-5.2) g/dL Globulin (2-4) g/dL Albumin/Globulin Ratio (1-3) Urine Color Yellow Urine Appearance Clear Urine pH 5.0 (5-9) Ur Specific [place] 1.005 L (1.010-1.030) Urine Protein Negative (Negative) Urine Ketones Negative (Negative) Urine Blood Negative (Negative) Urine Nitrate Negative (Negative) Urine Bilirubin Negative (Negative) Urine Urobilinogen Negative (Negative) Ur Leukocyte Esterase Trace H (Negative) Urine WBC (Auto) Trace(0-5/hpf) (Absent) Urine RBC (Auto) Absent (Absent) Urine Bacteria Absent (Absent) Hyaline Casts Present H (Absent) Urine Glucose Negative (Negative) Urine Ascorbic Acid * H (Negative) Result Diagrams: 11/30/16 09:40 11/30/16 09:40 Lab Statement: Any lab studies that have been ordered have been reviewed, and results considered in the medical decision making process. - Radiology CXR Xray Interpretation: No Acute Changes - IMPRESSION: 1. OSTEOPENIA WITH AN AGE- INDETERMINATE COMPRESSION DEFORMITY OF THE MIDTHORACIC SPINE. 2. NO ACTIVE CARDIOPULMONARY DISEASE Radiology Interpretation Completed By: Radiologist - CT Brain CT Interpretation: No Acute Changes - IMPRESSION: No acute intracranial findings. CT Interpretation Completed By: Radiologist - EKG 1042 Cardiac Rate: Tachycardia - 111 BPM EKG Interpretation: Sinus tachycardia @ 111 BPM, no ST elevation NIH Scale - NIH Scale Level of Consciousness: Alert/Keenly Responsive Ask Patient the Month and His/Her Age: Both Correct Ask Pt to Open/Close Eyes and Commanding Officer Traffic Division/Release Non-Paretic Hand: Both Correctly Best Gaze (Only Horizontal Eye Movement): Normal Visual Field Testing: No Visual Loss Facial Paresis-Pt to Smile & Close Eyes or Grimace Symmetry: Normal/Symmetrical Motor Function - Right Arm: No Drift-Holds 10 Seconds Motor Function - Left Arm: No Drift-Holds 10 Seconds Motor Function - Right Leg: No Drift-Holds 10 Seconds Motor Function - Left Leg: No Drift-Holds 10 Seconds Limb Ataxia-Must be out of Proportion to Weakness Present: Absent Sensory (Use Pinprick to Test Arms/Legs/Trunk/Face): Normal Best Language (Describe Picture, Name Items): No Aphasia Dysarthria (Read Several Words): Normal Extinction and Inattention: No Abnormality Total Score: 0 Re-Evaluation - Re-Evaluation First Eval Re-Evaluation Time: 10:40 Change: Worse Comment: Pt is complaining of chest tightness Second Eval Re-Evaluation Time: 13:40 Change: Unchanged Comment: Pt is agreeable to be discharged. Course/Dx - Course Assessment/Plan: Harinder Gasca is a 70 yo male presenting to [facility] currently complaining only of bilateral 5/10 upper extremity pain, but earlier this morning also complained of weakness, numbness, and slurred speech. In the ED course he received IV fluids, NTG, and Soma. His CT Brain suggests no acute intracranial findings. His CXR suggests no active cardiopulmonary disease. At 1040 Pt began to experience chest tightness without N/V/D or skin diaphoresis. He was administered IV fluids and NTG. ASA was withheld due to Pt allergies to NSAID's. After clinical examination and review of his lab and imaging studies, he will be discharged home with chest pain, weakness, and musculoskeletal pain with appropriate instructions. Test results are WNL except mild anemia, glucose 129. Trop is 0.03 initially, and 4 hours later, was 0.02. Head CT shows no acute intracranial pathology, CXR shows no acute pathology. Thererfore we have ruled out any CVA or acute coronary syndorome. Pt was given 1 tab of soma, his chronic medications and all his Sx are resolved. Thererfore, Pt will be discharged with PCP F/U. He is hemodynamically stable and A&Ox3. I discussed all the findings and test results with the patient. Patient was instructed to return to the emergency room immediately if any of the symptoms return or worsens. Plan of care was discussed with the patient and understands and agrees. All questions were answered at patient satisfaction. There were no further complaints or concerns. Lung exam before discharge: CTA B/L. Good air exchange. No wheezing or crackles heard. CVS: S1 and S2 present. No murmurs appreciated. Patient is alert and oriented x 3. Patient is hemodynamically stable. Patient will be discharged home with follow up PCP in the next 2-3 days - Differential Dx Differential Diagnoses Neuro: Positive: Other - chest pain - Diagnoses Provider Diagnoses: Chest pain, Weakness, Musculoskeletal pain Discharge - Discharge Plan Condition: Stable Disposition: HOME Patient Education Materials: Chest Pain (ED), Weakness (ED), Musculoskeletal Pain (ED) Referrals: Liam Patel MD [Primary Care Provider] - Additional Instructions: mechanical fall precautions given The documentation as recorded by the rona turner Timothy accurately reflects the service I personally performed and the decisions made by me, Bharath Moseley MD.
== END 2016-11-30 14:43 | disposition home or self-care (01) ==
LOC: ED 09:08
DX: R07.9 Chest pain, unspecified (principal); R53.1 Weakness; M79.1 Myalgia; Z87.891 Personal history of nicotine dependence; Z88.5 Allergy status to narcotic agent; E78.5 Hyperlipidemia, unspecified; I10 Essential (primary) hypertension; Z86.73 Personal history of transient ischemic attack (TIA), and cerebral infarction without residual deficits; K21.9 Gastro-esophageal reflux disease without esophagitis; R62.50 Unspecified lack of expected normal physiological development in childhood
CPT/HCPCS: 36415; 70450; 71020; 80053; 81003; 81015; 83605; 84484; 85025; 85610; 85730; 87040; 87086; 93005; 96360; 99283; A9270-GY

== ENCOUNTER 2016-12-19 11:46 | Emergency (ER) | payer MEDICARE, MEDICAID ==
--- NOTE | 2016-12-19 14:34 | RAD ---
Indication: Right elbow injury. 4 views of the right elbow demonstrates no fracture. No joint effusion is identified. Lateral view is limited due to poor positioning. IMPRESSION: No fracture of the right elbow is noted. No joint effusion is noted. The lateral view is suboptimally positioned..
--- NOTE | 2016-12-19 14:43 | RAD ---
Indication: RIGHT anterior upper arm and antecubital swelling. Comparison: January 25, 2007 MRI RIGHT shoulder. Technique: Ultrasound of the anterior aspect of the RIGHT upper arm from the bicipital groove at the shoulders through the radial tuberosity. Report: The long head biceps tendon is markedly thickened and heterogeneous in signal intensity at the bicipital consistent with advanced tendinopathy. There is fluid within the bicipital groove. There is a 5.1 x 1.3 x 2.7 cm fluid collection with a reticulated internal architecture pattern most consistent with blood products which extends along the biceps at the level of the proximal myotendinous junction. No gross retraction of the biceps tendon or muscle evident. Small volume of fluid extends distally along the biceps to the distal myotendinous junction/antecubital fossa. The distal segment of the biceps tendon appears intact to the radial tuberosity. A transverse image at the contralateral LEFT bicipital groove documents similar severe long head biceps tendinopathy. IMPRESSION: Partial proximal myotendinous tear of the RIGHT biceps with associated complex hematoma dissecting along the muscular fascia. Advanced tendinopathy of the long head biceps tendon. Similar advanced tendinopathy of the contralateral LEFT long head biceps tendon.
--- NOTE | 2016-12-19 15:02 | UC ---
Nate Talbert Alok, scribed for Randy Campbell MD on 12/19/16 at 1326 . Upper Extremity HPI - HPI Summary HPI Summary: 71M presents to [facility] with a cyst at the right arm since this morning. Pt also notes arm pain bilaterally for the past few months, worsening over the last two weeks. Pt states pain is bilaterally from his wrist to his shoulder with numbness at the fingertips. Pt states his pain is worse with movement and bending. - History of Current Complaint Chief Complaint: UCUpperExtremity Stated Complaint: SOFT TISSUE COMPLAINT Time Seen by Provider: 12/19/16 13:18 Hx Obtained From: Patient Onset/Duration: Lasting Hours - cyst right arm, Lasting Weeks - arm pain, Worse Since - arm pain 2 weeks Severity Initially: Moderate Severity Currently: Moderate Pain Intensity: 10 Pain Scale Used: 0-10 Numeric Location Of Pain: Is Discrete @ - arms bilaterally Character: Aching Aggravating Factor(s): Movement, Flexion Alleviating Factor(s): Nothing Associated Signs And Symptoms: Positive: Numbness/Tingling - Allergies/Home Medications Allergies/Adverse Reactions: Allergies Allergy/AdvReac Type Severity Reaction Status Date / Time Codeine Allergy Unknown Verified 12/19/16 12:17 Reaction Details Morphine Allergy Unknown Verified 12/19/16 12:17 Reaction Details Rosuvastatin [From Crestor] Allergy Unknown Verified 12/19/16 12:17 Reaction Details PMH/Surg Hx/FS Hx/Imm Hx - Surgical History Surgical History: None - Family History Known Family History: Positive: Cardiac Disease Negative: Hypertension, Diabetes - Social History Occupation: Retired Lives: Alone Alcohol Use: None Substance Use Type: None Smoking Status (MU): Former Smoker - Immunization History Most Recent Influenza Vaccination: March 2016 Most Recent Tetanus Shot: ? Most Recent Pneumonia Vaccination: received Review of Systems Constitutional: Negative Skin: Other - cyst right arm Musculoskeletal: Other: - arm pain bilaterally All Other Systems Reviewed And Are Negative: Yes Physical Exam Triage Information Reviewed: Yes Appearance: Well-Appearing, No Pain Distress Vital Signs: Initial Vital Signs Temp 99.0 F 12/19/16 12:10 Pulse 118 12/19/16 12:10 Resp 18 12/19/16 12:10 BP 108/80 12/19/16 12:10 Pulse Ox 100 12/19/16 12:10 Vital Signs Reviewed: Yes Eyes: Positive: Other: - EOMI, MADDY ENT Exam: Normal Neck: Positive: Supple, Nontender Respiratory: Positive: Lungs clear, Normal breath sounds Cardiovascular: Positive: RRR Abdomen Description: Positive: Nontender, Soft Bowel Sounds: Positive: Present Musculoskeletal: Positive: Other: - Good ROM with elbow, shoulder, and wrists bilaterally. No strength deficit. Good capillary refill. Good pulses. Neurological Exam: Normal Neurological: Positive: Other: - Alert & Oriented x3. Sensory/Motor intact Psychological Exam: Normal Psychological: Positive: Other: - affect/mood appropriate Skin: Positive: Other - Soft tissue swelling at anticubital right elbow Diagnostics - Laboratory Diagnostic Studies Completed/Ordered: Soft Tissue US- Pending - Radiology Elbow Xray Xray Interpretation: Positive (See Comments) - pending Radiology Interpretation Completed By: Radiologist Upper Extremity Course/Dx - Course Course Of Treatment: Pt medication reviewed this visit. DISCUSSED RESULTS WITH PATIENT. I RECOMMENDED A SLING FOR THE RIGHT ARM. THE PATIENT DECLINED THE SLING HE WAS CONCERNED IT MAY DECREASE HIS MOBILITY EXCESSIVELY. F/U WITH ORTHO. - Differential Dx/Diagnosis Provider Diagnoses: PARTIAL RIGHT BICEP MUSCLE TEAR WITH HEMATOMA FORMATION AT RIGHT ANTICUBITAL. Discharge - Discharge Plan Condition: Stable Disposition: HOME Patient Education Materials: Hematoma (ED) Referrals: Liam Patel MD [Primary Care Provider] - [facility] [Outside] Additional Instructions: YOU HAVE A HEMATOMA AT YOUR RIGHT ELBOW FROM A MYOTENDINOUS TEAR OF YOUR BICEP MUSCLE. REST YOUR ARM AND FOLLOW UP WITH ORTHOPEDICS. FOLLOW UP WITH ORTHOPEDICS. GET RECHECKED FOR ANY WORSENING OF YOUR CONDITION OR QUESTIONS OR CONCERNS. The documentation as recorded by the Nate turner Alok accurately reflects the service I personally performed and the decisions made by me, Randy Campbell MD.
[2016-12-19 15:04] VITALS: BP 109/68
== END 2016-12-19 15:08 | disposition home or self-care (01) ==
LOC: UCEAST 11:46
DX: S46.211A Strain of muscle, fascia and tendon of other parts of biceps, right arm, initial encounter (principal); Z88.5 Allergy status to narcotic agent; Z87.891 Personal history of nicotine dependence; X58.XXXA Exposure to other specified factors, initial encounter; Y92.9 Unspecified place or not applicable; E03.9 Hypothyroidism, unspecified
CPT/HCPCS: 84443; 99212; G0463

== ENCOUNTER → 2017-01-02 22:15 | Emergency (ER) | payer MEDICARE, MEDICAID ==
[~2017-01-02 22:15] MED LIST changes: +Ibuprofen TAB* 600 MG PO ONE; -traMADol TAB* 50 MG PO ONE
[2017-01-03 00:45] VITALS: BP 111/69
--- NOTE | 2017-01-03 07:23 | RAD ---
INDICATION: Fall COMPARISON: November 30, 2016 TECHNIQUE: AP seated and lateral views were obtained. FINDINGS: Bones/Soft Tissues: There are no acute bony findings. There is osteopenia with mild biconcave endplate changes. There is advanced osteophyte change about the shoulders left greater than right Cardiomediastinal: The cardiomediastinal silhouette is normal. Lungs: There are no infiltrates. Pleura: There are no pleural effusions. Other: None IMPRESSION: NO ACTIVE DISEASE.
--- NOTE | 2017-01-03 07:25 | RAD ---
INDICATION: Left hand injury. TECHNIQUE: 4 views of the left hand were obtained. FINDINGS: There is soft tissue swelling present along the lateral aspect of the hand and dorsal to the second metacarpal. No fracture is seen. There is joint space narrowing hypertrophic and erosive changes in the proximal and distal interphalangeal joints consistent with an inflammatory arthropathy. IMPRESSION: 1. NO EVIDENCE FOR FRACTURE, IF THE PATIENT'S SYMPTOMS PERSIST, RECOMMEND FOLLOW-UP IMAGING. 2. FINDINGS CONSISTENT WITH AN INFLAMMATORY ARTHROPATHY IN THE PROXIMAL AND DISTAL INTERPHALANGEAL JOINTS.
--- NOTE | 2017-01-03 07:27 | RAD ---
INDICATION: Head injury. COMPARISON: Comparison is made with a prior CT of the brain from November 30, 2016. TECHNIQUE: Contiguous axial sections of the brain were obtained from the skull base to the vertex without contrast. FINDINGS: The ventricles, cisterns and sulci are enlarged consistent with diffuse atrophy. No significant focal abnormality or mass effect is seen. There is no evidence for hemorrhage. There is focal soft tissue swelling present anterior to the bridge of the nose and frontal sinuses. No fracture is seen. The visualized portion of the paranasal sinuses and mastoid air cells appear clear. IMPRESSION: NO EVIDENCE FOR ACUTE INTRACRANIAL ABNORMALITY.
--- NOTE | 2017-01-03 07:38 | RAD ---
HISTORY: Fall COMPARISONS: None VIEWS: 6, Frontal and lateral views of the right femur FINDINGS: BONE DENSITY: There is diffuse osteopenia. BONES: There is a probable mildly impacted fracture of the right femoral neck JOINTS: There is osteoporosis of the right hip and right knee ALIGNMENT: There is no dislocation. SOFT TISSUES: Unremarkable. OTHER FINDINGS: None. IMPRESSION: PROBABLE MILDLY IMPACTED FRACTURE OF THE RIGHT FEMORAL NECK
--- NOTE | 2017-01-03 19:17 | ED ---
rona Talbert Timothy, scribed for Joel Payton MD on 01/02/17 at 2234 . Complex/Multi-Sys Presentation - HPI Summary HPI Summary: Harinder Gasca is a 71 yo male presenting to [facility] S/P a fall tonight in which he attempted to get out of his wheelchair landed on his face and left hand. He states he was trying to get up out of his chair when he tripped on his flip flops and edematous feet and fell. He notes abrasions on his left hand and forehead. His MHx includes thyroid disease, cardiac disorders, angina, HLD, HTN , migraine, CVA, TIA, GERD, hiatal hernia, arthritis, anxiety, developmental delay, and tobacco use. - History Of Current Complaint Time Seen by Provider: 01/02/17 22:25 Hx Obtained From: Patient Onset/Duration: Sudden Onset, Lasting Minutes, Still Present Timing: Constant Severity Currently: Moderate Severity Initially: Moderate Location: Pain At: - left hand, forehead Associated Signs And Symptoms: Positive: Other - abrasion and swelling left hand , abrasion forehead - Allergies/Home Medications Allergies/Adverse Reactions: Allergies Allergy/AdvReac Type Severity Reaction Status Date / Time Codeine Allergy Unknown Verified 12/19/16 12:17 Reaction Details Morphine Allergy Unknown Verified 12/19/16 12:17 Reaction Details Rosuvastatin [From Crestor] Allergy Unknown Verified 12/19/16 12:17 Reaction Details PMH/Surg Hx/FS Hx/Imm Hx Endocrine/Hematology History: Reports: Hx Thyroid Disease Denies: Hx Diabetes Cardiovascular History: Reports: Hx Angina, Hx Hypercholesterolemia, Hx Hypertension Denies: Hx Congestive Heart Failure GI History: Reports: Hx Gastroesophageal Reflux Disease, Hx Hiatal Hernia History: Denies: Hx Dialysis, Hx Renal Disease Musculoskeletal History: Reports: Hx Arthritis Sensory History: Reports: Hx Contacts or Glasses, Hx Eye Injury - eyes swollen shut Denies: Hx Hearing Aid Opthamlomology History: Reports: Hx Contacts or Glasses, Hx Eye Injury - eyes swollen shut Neurological History: Reports: Hx Developmental Delay, Hx Migraine, Hx Transient Ischemic Attacks (TIA) Psychiatric History: Reports: Hx Anxiety - Immunization History Date of Tetanus Vaccine: up to date Infectious Disease History: Denies: Traveled Outside the [place] in Last 30 Days - Family History Known Family History: Positive: Cardiac Disease, Hypertension Negative: Diabetes - Social History Alcohol Use: None Hx Substance Use: No Substance Use Type: Reports: None Hx Tobacco Use: Yes Smoking Status (MU): Former Smoker Review of Systems Constitutional: Negative Eyes: Negative ENT: Negative Cardiovascular: Negative Respiratory: Negative Gastrointestinal: Negative Genitourinary: Negative Positive: Other - abrasion and swelling of left hand Positive: Other - abrasion forehead Neurological: Negative Psychological: Normal All Other Systems Reviewed And Are Negative: Yes Physical Exam Triage Information Reviewed: Yes Vital Signs On Initial Exam: Initial Vital Signs Temp 98.6 F 01/02/17 22:31 Pulse 95 01/02/17 22:31 Resp 16 01/02/17 22:31 BP 150/88 01/02/17 22:31 Pulse Ox 99 01/02/17 22:31 Vital Signs Reviewed: Yes Appearance: Positive: Ill-Appearing, Pain Distress - mild discomfort Skin: Positive: Warm Head/Face: Positive: Other - abrasion to frontal scalp Eyes: Positive: EOMI, MADDY ENT: Positive: Hearing grossly normal Neck: Positive: Supple, Nontender Respiratory/Lung Sounds: Positive: Clear to Auscultation, Breath Sounds Present Cardiovascular: Positive: RRR Abdomen Description: Positive: Nontender, Soft Bowel Sounds: Positive: Present Musculoskeletal: Positive: Other - mild swelling and tendeerness rt proximal femur, mild pain on flexion at hip, no pelvic compression tenderness notes Neurological: Positive: Sensory/Motor Intact, Alert, Oriented to Person Place, Time Psychiatric: Positive: Affect/Mood Appropriate Diagnostics - Vital Signs Vital Signs Temp Pulse Resp BP Pulse Ox 01/03/17 00:26 97 111/69 98 01/03/17 00:24 98 98 01/03/17 00:00 96 100 01/02/17 23:01 103 99 01/02/17 22:31 98.6 F 95 16 150/88 99 01/02/17 22:30 99 127/72 99 01/02/17 22:28 96 99 01/02/17 22:27 132/73 - Laboratory Lab Statement: Any lab studies that have been ordered have been reviewed, and results considered in the medical decision making process. - Radiology L Hand XR Xray Interpretation: No Acute Changes - no acute fracture Radiology Interpretation Completed By: ED Physician CXR Xray Interpretation: No Acute Changes - No acute disease Radiology Interpretation Completed By: ED Physician R Femur XR Xray Interpretation: No Acute Changes - No acute fracture Radiology Interpretation Completed By: ED Physician - CT Brain CT Interpretation: No Acute Changes - Impression: No mass effect or intracranial hemorrhage. CT Interpretation Completed By: Radiologist - Imaging fleet salesperson Re-Evaluation - Re-Evaluation First Eval Re-Evaluation Time: 23:22 Change: Unchanged Comment: Reviewed imaging study results with Pt and answered questions to his satisfaction. Pt also notes pain in his right leg he would like examined. Second Eval Re-Evaluation Time: 00:30 Change: Unchanged Comment: Discussed further imaging study with Pt, and answered questions to his satisfaction regarding bruising and possible Fx. Complex Multi-Symp Course/Dx Assessment/Plan: Harinder Gasca is a 71 yo male presenting to [facility] with abrasion on his forehead and abrasion and swelling on his left hand S/P falling while getting up out of his wheelchair. Pt medication list reviewed this visit. Pt counseled that flip flops are low-stability and can increase risk of falls. His CT Brain suggests no mass effect or intracranial hemorrhage. His CXR suggests no acute disease. His L hand XR suggests no acute fracture. His R femur XR suggests no acute fracture. After clinical examination and review of his imaging studies, he will be discharged home with fall, multiple contusions with appropriate instructions. - Diagnoses Differential Diagnoses/HQI/PQRI: Other - fall Provider Diagnoses: Fall, Multiple contusions Discharge - Discharge Plan Condition: Stable Disposition: HOME Patient Education Materials: Fall Prevention (ED), Contusion in Adults (ED), Facial Contusion (ED) Referrals: Liam Patel MD [Primary Care Provider] - 2 Days Additional Instructions: Please follow up with your primary care physician regarding your visit to the emergency department today. Return to the emergency department with any new or recurring symptoms. The documentation as recorded by the rona turner Timothy accurately reflects the service I personally performed and the decisions made by me, Joel Payton MD.
== END | disposition home or self-care (01) ==
LOC: ED 22:15
DX: S00.93XA Contusion of unspecified part of head, initial encounter (principal); S60.222A Contusion of left hand, initial encounter; W05.0XXA Fall from non-moving wheelchair, initial encounter; Y93.9 Activity, unspecified; Y92.9 Unspecified place or not applicable
CPT/HCPCS: 70450; 71020; 99283; A9270-GY

== ENCOUNTER 2017-01-04 17:09 | Inpatient (IN) | payer MEDICARE, MEDICAID ==
[2017-01-04 19:58] LABS: Hematocrit 34 % (42-52); Hemoglobin 11.5 g/dl (14.0-18.0); Mean Corpuscular HGB Conc 34 g/dl (31-36); Mean Corpuscular Hemoglobin 32 pg (27-31); Mean Corpuscular Volume 95 fL (80-94); Mean Platelet Volume 6 um3 (7.4-10.4); Red Blood Count 3.59 10^6/ul (4.0-5.4); Red Cell Distribution Width 15 % (10.5-15)
[2017-01-04] MEDS ORDERED: Enoxaparin(*) 40 MG/0.4 ML SYR SUBCUT SCH (20:00)
[2017-01-04 20:04] LABS: Add Diff/Slide Review? Slide Review Added; Comments Flag Yes
[2017-01-04 20:12] LABS: BUN/Creatinine Ratio 15.9 (8-20); Calcium 8.5 mg/dL (8.6-10.3); EGFR African American 88.1 (>60); EGFR Non-African American 68.5 (>60); Potassium 4.2 mmol/L (3.5-5.0)
[2017-01-04] MEDS: Famotidine TAB* 20 MG PO SCH (20:48)
[2017-01-04] MEDS: traMADol TAB* 50 MG PO PRN (20:48)
[2017-01-04] MEDS: Tamsulosin CAP* 0.4 MG PO SCH (20:48)
[2017-01-04] MEDS: THIORIDAZINE 25 MG PO SCH ×2 (20:49→22:34)
[2017-01-04] MEDS: rOPINIRole TAB* 1 MG PO SCH (20:49)
--- NOTE | 2017-01-04 22:54 | RAD ---
Indication: RIGHT hip pain. Assess for femoral neck fracture. Comparison: January 02, 2017 radiographs Technique: Multidetector CT pelvis without contrast. Multiplanar reformation with bone algorithm. Report: Long segment appendicolith in the retrocecal appendix without inflammatory change of the appendix. Advanced colonic diverticulosis without findings of diverticulitis. Negative for ascites. Negative for lymphadenopathy. 5.2 x 5.5 cm heterogeneous density substance within the subcutaneous tissue plane posterior and lateral to the intratrochanteric region of the RIGHT hip is most consistent with soft tissue hematoma. Negative for proximal femur or pelvic fracture or articular malalignment. Both hips are remarkable for mild osteophytosis and moderate axial joint space narrowing. Lumbar sacral spine degenerative spondylosis and facet joint osteoarthritis. IMPRESSION: 1. 5.2 x 5.5 cm heterogeneous density substance within the subcutaneous tissue plane posterior and lateral to the intratrochanteric region of the RIGHT hip is most consistent with soft tissue hematoma. Correlate with clinical assessment. 2. No CT evidence for RIGHT hip fracture. If there is persistent high clinical index of suspicion MRI would be suggested if clinically feasible for the most sensitive imaging assessment for occult hip fracture. 3. 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 Lumbar sacral spine degenerative spondylosis and facet joint osteoarthritis.
--- NOTE | 2017-01-05 05:06 | HP ---
CC: Dr. Patel* HISTORY AND PHYSICAL: DATE OF ADMISSION: 01/04/17 PRIMARY CARE PHYSICIAN: Dr. Patel CHIEF COMPLAINT: Possible hip fracture on imaging. HISTORY OF PRESENT ILLNESS: Mr. Gasca is a 71-year-old male with past medical history of hypertension, hyperlipidemia, hypothyroidism, GERD, mild cognitive impairment, sinus tachycardia, chronic leukocytosis, chronic dysarthria, restless leg syndrome, who presents to the hospital after he was sent in by his PCP due to possible hip fracture noted on imaging from an ED visit. The patient initially presented to the emergency department on 01/02/17. He states that prior to that he was at his [facility]. He was sitting in the chair; when he went to get up, he thinks his foot got caught on something and he fell forward, his face hitting the bed. He also injured his hand and fell onto his right side. He denies any loss of consciousness. He was able to get up on his own and he went to the mirror and noticed his face was bleeding. He denies any preceding chest pain, shortness of breath, palpitations, or lightheadedness. He thinks that, that was mechanical in nature. His brother who is present, however, did state that he had spoken to the patient prior to the fall and he seemed a bit confused and slurring his speech a bit, which happens at times on certain pain medications particularly Soma, which was restarted recently. The patient had also missed his dinner, which often exacerbates those symptoms. The patient called the nurse in to see him and she recommend he go to the hospital. He was seen in the ED, had imaging done of his chest, hand, and femur. Initially it was felt that there were no fractures noted; however, on later report finalized by our radiologist here his right femur was read as probable mildly impacted fracture of the right femoral neck. Dr. Patel, the patient's PCP, noticed this and spoke with Dr. Posadas. Initially, the plan was for the patient to be nonweightbearing until he saw Dr. Posadas in the office; however, at his assisted living facility, they cannot ensure this and with the patient's cognitive impairment, it was felt that he may not follow with the directions, so decision was made to bring the patient to the hospital for further workup. PAST MEDICAL HISTORY: 1. Hypertension. 2. GERD. 3. Anxiety. 4. Developmental delay/cognitive impairment. 5. Chronic leukocytosis. 6. Sinus tachycardia. 7. Dysarthria. 8. Hypothyroidism. 9. Restless leg syndrome. PAST SURGICAL HISTORY: None. HOME MEDICATIONS: 1. Tramadol 50 mg by mouth 3 times daily as needed for pain. 2. Ibuprofen 200 mg by mouth every 8 hours as needed for pain. 3. Flomax 0.4 mg by mouth 3 times daily. 4. Zofran 8 mg by mouth 3 times daily as needed for nausea. 5. ReQuip 3 mg by mouth 3 times daily. 6. Thioridazine 25 mg by mouth 3 times daily. 7. Pentoxifylline 400 mg by mouth 3 times daily. 8. Multivitamin 1 tablet by mouth 3 times daily. 9. Synthroid 137 mcg by mouth daily. 10. Lisinopril 10 mg by mouth daily. 11. Lasix 20 mg by mouth daily. 12. Ferrous sulfate 325 mg by mouth daily. 13. Famotidine 40 mg by mouth 2 times daily. ALLERGIES: The patient reports allergies to CODEINE, MORPHINE, ROSUVASTATIN. FAMILY HISTORY: Father with CAD and AAA. Mother with hypertension and palpitations. SOCIAL HISTORY: The patient is a 10-pack year smoker, quit in 1972. No alcohol or illicit drug use. REVIEW OF SYSTEMS: A 12-point review of systems negative except for that as noted in the HPI. PHYSICAL EXAMINATION GENERAL: The patient is a pleasant, elderly male, lying in bed, in no apparent distress. VITAL SIGNS: On admission, temperature 98.7, heart rate of 111, respiratory rate of 18, O2 saturation 90% on room air, blood pressure 136/76. HEENT: The patient has some superficial abrasions of the forehead and nose. Eyes: Reactive to light and accommodation. ENT: Anicteric sclerae. ENT: Moist mucous membranes. No cervical adenopathy. LUNGS: Clear to auscultation bilaterally. No wheezes, rales, or rhonchi. CARDIOVASCULAR: Tachycardia. No murmurs, gallops, or rubs. ABDOMEN: Soft, nontender, and nondistended. Bowel sounds are positive. EXTREMITIES: No cyanosis, clubbing, or edema. The patient has full range of motion of his right lower extremity. Denies any pain. Does have significant ecchymosis on the right lateral thigh. NEURO: The patient is alert, oriented x3. No focal neurological deficits. SKIN: The patient has significant abrasion in his left hand along with some edema and bruising tracking down to the fingers. ASSESSMENT AND PLAN: Mechanical fall leading to possible right hip fracture in a 71-year-old with past medical history of hypertension, hyperlipidemia, GERD , sinus tachycardia, chronic dysarthria, chronic leukocytosis, developmental delay, anxiety, hypothyroidism, restless legs syndrome. 1. Hip pain. I spoke with Dr. Posadas. Plan will be to get an MRI of the hip to confirm the fracture. We will make the patient n.p.o. in case he needs to go to surgery tomorrow. We will continue the patient's home tramadol for pain for now. If the patient does not have fracture he can likely be discharged back to [place] tomorrow. We will hold the patient's home Lasix and lisinopril in case he is to go to surgery as well as his [place]. 2. Hypertension. Holding lisinopril as above. 3. Hypothyroidism. Continue home Synthroid. 4. Gastroesophageal reflux disease. Continue Pepcid b.i.d. 5. Benign prostatic hypertrophy. Continue home Flomax. 6. Developmental delay. The patient is alert, aware of his surrounding. He is able to answer all questions. 7. DVT prophylaxis. Lovenox subcu. 8. Code status. The patient is full code. TIME SPENT: Total time spent on this admission 45 minutes with over half the time spent [id number] with the patient in counseling and coordinating care. [id number]/[facility] #: [id number] MADHAVI
[2017-01-05] MEDS: traMADol TAB* 50 MG PO PRN ×2 (05:49→05:57)
[2017-01-05] MEDS: Levothyroxine TAB* 137 MCG TAB PO SCH ×2 (05:49→05:57)
--- NOTE | 2017-01-05 08:28 | DCNOTE ---
Patient seen this morning. No new complaints, no significant pain in the hip, concerned about bruising in his hand. On exam, RRR, s1 and s2 present, no m/g/r, lungs CTA B/L, abd soft, NTND, BS+, R hip ecchymoses Appreciate Dr. Leung's assistance. Overnight CT (patient could not tolerate MRI) showed no fracture. Will discharge home today with no medication changes. F/U with Dr. Patel as an outpatient.
[2017-01-05] MEDS: Tamsulosin CAP* 0.4 MG PO SCH (08:42)
[2017-01-05] MEDS: Famotidine TAB* 20 MG PO SCH (08:42)
[2017-01-05] MEDS: rOPINIRole TAB* 1 MG PO SCH (08:42)
[2017-01-05] MEDS: THIORIDAZINE 25 MG PO SCH (08:43)
[2017-01-05 08:46] VITALS: BP 143/80
[2017-01-05] MEDS ORDERED: Ferrous Sulfate TAB* 325 MG PO SCH (09:00)
[2017-01-05] MEDS ORDERED: Pentoxifylline CR TAB* 400 MG PO SCH (09:00)
[2017-01-05] MEDS ORDERED: Lisinopril TAB* 10 MG PO SCH (09:00)
[2017-01-05] MEDS ORDERED: Furosemide TAB* 20 MG PO SCH (09:00)
--- NOTE | 2017-01-06 10:37 | CONS ---
CC: Liam Patel MD CONSULTATION NOTE: ATTENDING PHYSICIAN: Arturo Posadas MD. DATE OF CONSULTATION: 01/05/17 REASON FOR CONSULTATION: Right hip pain, possible right hip fracture. HISTORY OF PRESENT ILLNESS: The patient is a 71-year-old man, with mild cognitive impairment, who lives in [facility], with multiple other medical problems, who incidentally, I have met in clinic previously and treated for a right proximal biceps tendon partial rupture, bilateral biceps tendinitis , proximal bilateral glenohumeral joint severe osteoarthritis, who I was consulted on today regarding right hip pain and possible right hip fracture, status post a fall on 01/02/17, 3 days ago. The date of injury, at the [facility] where he lives, the patient fell when he got up from a chair. He thinks he got one of his feet caught on something and he fell forward. His face hit bed. He injured his left hand and then fell onto his right side. He denied any loss of consciousness or head trauma. The patient was able to get up on his own. He noted some facial bleeding in the mirror. He described no antecedent chest pain , shortness of breath, heart palpitations, or lightheadedness and believed that the fall was secondary to his tripping. The patient, apparently, had missed a meal previous to this and, according to his brother, states that the patient seemed a bit confused at the time of the injury. [place] [facility] [place] and had x- rays obtained of his right femur, which included the right hip. The patient was noted on physical exam in the emergency department to have some significant ecchymosis about the right lateral thigh, there was pain with flexion of the hip. There is also mild swelling and tenderness of right proximal femur noted. The patient was noted to have abrasions about the forehead and left hand as well. X-rays were read by emergency department staff as negative and the patient was discharged to home. The patient was discharged to home with instructions for him to follow up with his primary care physician and instructions on fall prevention and caring for the abrasions about his face and left hand. Dr. Liam Patel, the patient's primary care physician, was notified of the radiology read of the patient's right femur x-rays. These were read by Radiology showing probable impacted right femoral neck fracture. Dr. Patel appropriately consulted Orthopedics by telephone and also arranged for a direct admission to [facility]. The direct admission was required because, secondary to the cognitive impairment of the patient and limited nursing availability at [place], there was no way to ensure that the patient will be nonweightbearing until he could obtain a full orthopedic examination and determination if a fracture was present or not. The patient was directly admitted to the floor, admitted to the hospitalist service last night. I am consulting on the patient this morning. My review of the x-rays myself yesterday was that there was no clear impacted fracture, although I could not definitively rule on out based on those x-rays. The patient states that he currently does not have right hip pain. His hip discomfort has improved significantly over the last 2 days. The patient believes he is able to walk without discomfort. The patient describes an abrasion on his left hand. He also describes an improvement in both bilateral upper arms and shoulders from the biceps tendon sheath injections I did in clinic several weeks ago. PAST MEDICAL HISTORY: Hypertension, gastroesophageal reflux disease, anxiety, cognitive impairment, chronic leukocytosis, sinus tachycardia, dysarthria, hypothyroidism, restless leg syndrome. PAST SURGICAL HISTORY: None. HOME MEDICATIONS: 1. Tramadol p.r.n. 2. Ibuprofen p.r.n. 3. Flomax. 4. Zofran p.r.n. 5. Requip. 6. Thioridazine. 7. Pentoxifylline. 8. Synthroid. 9. Lisinopril. 10. Lasix. 11. Ferrous sulfate. 12. Famotidine. 13. Multivitamin. ALLERGIES: CODEINE, MORPHINE, ROSUVASTATIN. REVIEW OF SYSTEMS: The patient denies fevers, sweats, chills. He denies current right hip pain. He does have bilateral shoulder pain, which is his baseline, although improved with recent cortisone injection. Some discomfort in his left hand. PHYSICAL EXAM: Vital Signs: At 7:13 a.m. this morning were temperature 97.7 degrees Fahrenheit, pulse 90, blood pressure 143/80, O2 sat 99% on room air, respiratory rate 16. No acute distress. The patient is resting comfortably in bed. Appropriate mood and affect. The patient is understandable most of the time, although his speech and thinking do indicate some cognitive impairment, although we were able to carry on a conversation. Appropriate dress and hygiene. Well coordinated bilateral lower extremities. Right hip exam demonstrates no pain whatsoever with logroll maneuver. Passive range of motion of the right hip is 130 degrees of flexion, 40 degrees of external rotation, and 20 degrees of internal rotation. No pain whatsoever with passive range of motion with the exception of some mild pain at terminal flexion of the hip. Both with logroll maneuver and with flexion and rotation of the hip, I did these maneuver slowly at first and then with much speed and the patient had no discomfort whatsoever. The patient had some mild soft tissue swelling and ecchymosis about the right proximal lateral thigh and ecchymosis. Mild tenderness to palpation over that area. Neurovascularly intact distally. No weakness and only minimal discomfort with resisted right hip flexion and abduction. The patient walked without any antalgia whatsoever, but with some poverty of balance; however, no difference whatsoever between lower extremities with his gait. He seemed very comfortable and in no pain walking, making his history believable. Left hand exam reveals a partial thickness abrasion of the dorsum of the left hand as well as one of the dorsum of the left wrist. No surrounding erythema or tenderness to palpation or drainage. Neurovascularly intact distally. DIAGNOSTIC STUDIES/LAB DATA: Labs: January 04 laboratory values include a white blood cell count of 9.0. IMAGING: I reviewed x-rays of the right femur, obtained 01/02/17, four views, which included several views of the right femoral neck. I did not see a clear femoral neck fracture, although I can see the line that the radiologist may have been considering a probable fracture and so I cannot definitely rule out a fracture based only on these plain films. I reviewed a CT scan of the right hip and pelvis from 01/04/17. This demonstrates no right hip fracture. There are some degenerative changes, loss of joint space, and spurring of the right hip joint consistent with osteoarthritis. There is also a fluid collection and swelling, subcutaneous, consistent with a hematoma. ASSESSMENT: 1. Right hip contusion. 2. No evidence of right hip fracture. PLAN: 1. When initially I was telephone-consulted last night, I had recommended an MRI scan of the right hip as was detailed by Dr. Dane Bartholomew. MRI was not obtained, likely secondary to either lack of availability or secondary to the fact that the patient said to me this morning that he does not tolerate the MRI tubes. Either way, I do not think that an MRI is now required. 2. I am satisfied based on the patient's physical exam and CT scan of the right hip that there is no fracture present. 3. Weightbearing as tolerated, right lower extremity. Activity as tolerated. 4. For the abrasion on the patient's left hand and wrist, I recommended Neosporin ointment followed by a dry sterile dressing until healed. 5. I am okay with discharge to home when the patient is medically cleared. 6. I am happy to see the patient in clinic regarding his right hip, his bilateral shoulders, or any other musculoskeletal complaints. [id number]/[facility] #: [id number] MADHAVI
--- NOTE | 2017-01-06 16:24 | DS ---
CC: Dr. Patel DISCHARGE SUMMARY: DATE OF ADMISSION: 01/04/17 DATE OF DISCHARGE: 01/05/17 PRIMARY CARE PHYSICIAN: Dr. Patel PRINCIPAL DISCHARGE DIAGNOSIS: Fall, possible right hip fracture. STUDIES DONE DURING HOSPITALIZATION: CT of the pelvis, impression: A 5.2 x 5.5 cm heterogeneous de nsity within the subcutaneous tissue plane, posterior and lateral to the intertrochanteric region of the right hip, most consistent with soft tissue hematoma. No CT evidence of right hip fracture. B ilateral Kellgren and Ravi grade 2 hip joint osteoarthritis, lumbosacral spine degenerative spon dylosis, and facet joint osteoarthritis. DISCHARGE MEDICATION REGIMEN: 1. Tramadol 50 mg by mouth 3 times daily as needed for pain. 2. Ibuprofen 200 mg by mouth every 8 hours as needed for pain. 3. Flomax 0.4 mg by mouth 3 times daily. 4. Zofran 8 mg by mouth 3 times daily as needed for nausea. 5. ReQuip 3 mg by mouth 3 times daily. 6. Thioridazine 25 mg by mouth 3 times daily. 7. Trental 400 mg by mouth 3 times daily. 8. Multivitamin 1 tablet by mouth daily. 9. Synthroid 137 mcg by mouth daily. 10. Lisinopril 10 mg by mouth daily. 11. Lasix 20 mg by mouth daily. 12. Ferrous sulfate 325 mg by mouth daily. 13. Famotidine 40 mg by mouth 3 times daily. HISTORY OF PRESENT ILLNESS AND HOSPITAL SUMMARY: Please see my full history and physical for full d etails. Briefly, Mr. Gasca is a 71-year-old man with past medical history of hypertension, GERD, anx iety, mild cognitive impairment, sinus tachycardia, dysarthria, hypothyroidism, restless legs syndro me, who presented to the hospital initially on 01/02/17 after a fall. The patient had imaging done and was discharged home; however, a read by the daytime radiologist later suggested a probable right hip fracture. The patient is a resident at [facility] and since then he had been ambulating on the hip with no problems. The initial plan was to try to set the patient up for an outpatient imaging, likely an MRI and keep the patient nonweightbearing in the meantime; however , it was not felt this would be able to be done at [facility] as the patient is often noncompliant and somewhat impulsive, so decision was made to bring him into the hospital. As noted above, he underw ent a CT scan of the pelvis as he reported claustrophobia with an MRI and this did not show any frac ture. He was evaluated by Dr. Posadas, who felt that it was fine for him to be discharged home. No medication changes were made during the hospitalization. TIME SPENT: Total time spent on this discharge was 40 minutes. This is a summary of the hospitalization, please see the full medical record for further details. [id number]/[facility] #: [id number]
== END 2017-01-05 11:50 | disposition home health service (06) | DRG 605 ==
LOC: SSU 18:39
PROVIDERS: ADMIT Hospitalist; ATTEND Hospitalist
DX: S70.01XA Contusion of right hip, initial encounter (principal); I10 Essential (primary) hypertension; E03.9 Hypothyroidism, unspecified; D72.828 Other elevated white blood cell count; E78.5 Hyperlipidemia, unspecified; K21.9 Gastro-esophageal reflux disease without esophagitis; G31.84 Mild cognitive impairment of uncertain or unknown etiology; G25.81 Restless legs syndrome; R47.1 Dysarthria and anarthria; F41.9 Anxiety disorder, unspecified; Z88.5 Allergy status to narcotic agent; Z88.8 Allergy status to other drugs, medicaments and biological substances; Z82.49 Family history of ischemic heart disease and other diseases of the circulatory system; N40.0 Benign prostatic hyperplasia without lower urinary tract symptoms; R62.50 Unspecified lack of expected normal physiological development in childhood; M47.896 Other spondylosis, lumbar region; W19.XXXA Unspecified fall, initial encounter; Y92.9 Unspecified place or not applicable
CPT/HCPCS: 36415; 70450; 71020; 72192; 80048; 85025; 93005; 99283; A9270-GY; J1650

== ENCOUNTER → 2017-02-11 22:05 | Emergency (ER) | payer MEDICARE, MEDICAID ==
--- NOTE | 2017-02-12 00:40 | ED ---
Upper Extremity Pain - HPI Summary HPI Summary: 71M presents with bilateral shoulder pain today. He has history of bilateral shoulder pain that has been seen here before for. Today he was reaching for something on the top shelf with both hands when he felt a pull in his left shoulder and so he compensated and thought he dislocated his right shoulder. He has limited ROM of both shoulder. He denies any numbness or tingling. He has chronic weakness of his shoulders. He is right handed. He took his ibuprofen tonight and does not want anything for pain. Patient is requesting a CT and an u/s. - History of Current Complaint Chief Complaint: EDExtremityUpper Stated Complaint: BOTH SHOULDER PAIN Time Seen by Provider: 02/11/17 22:22 - Allergies/Home Medications Allergies/Adverse Reactions: Allergies Allergy/AdvReac Type Severity Reaction Status Date / Time Codeine Allergy Unknown Verified 12/19/16 12:17 Reaction Details Morphine Allergy Unknown Verified 12/19/16 12:17 Reaction Details Rosuvastatin [From Crestor] Allergy Unknown Verified 12/19/16 12:17 Reaction Details PMH/Surg Hx/FS Hx/Imm Hx Endocrine/Hematology History: Reports: Hx Thyroid Disease Denies: Hx Diabetes Cardiovascular History: Reports: Hx Angina, Hx Hypercholesterolemia, Hx Hypertension Denies: Hx Angioplasty, Hx Congestive Heart Failure, Hx Embolism Respiratory History: Denies: Hx Asthma, Hx Chronic Obstructive Pulmonary Disease (COPD), Hx Lung Cancer, Hx Pleural Effusion, Hx Pulmonary Edema, Hx Pulmonary Embolism, Hx Seasonal Allergies, Hx Sleep Apnea GI History: Reports: Hx Gastroesophageal Reflux Disease, Hx Hiatal Hernia Denies: Hx Irritable Bowel History: Denies: Hx Dialysis, Hx Kidney Infection, Hx Kidney Stones, Hx Renal Disease Musculoskeletal History: Reports: Hx Arthritis, Hx Back Problems Sensory History: Reports: Hx Contacts or Glasses, Hx Eye Injury - eyes swollen shut Denies: Hx Cataracts, Hx Glaucoma, Hx Hearing Aid Opthamlomology History: Reports: Hx Contacts or Glasses, Hx Eye Injury - eyes swollen shut Denies: Hx Cataracts, Hx Glaucoma Neurological History: Reports: Hx Developmental Delay, Hx Headaches, Hx Transient Ischemic Attacks (TIA) Denies: Hx Migraine, Hx Seizures, Hx Spinal Cord Injury Psychiatric History: Reports: Hx Anxiety Denies: Hx Depression - Cancer History Cancer Type, Location and Year: Skin cancer 1999 - Immunization History Date of Tetanus Vaccine: up to date Infectious Disease History: No Infectious Disease History: Denies: Traveled Outside the [place] in Last 30 Days - Family History Known Family History: Positive: Cardiac Disease, Hypertension Negative: Diabetes - Social History Alcohol Use: None Hx Substance Use: No Substance Use Type: Reports: None Hx Tobacco Use: Yes Smoking Status (MU): Former Smoker Type: Cigarettes Have You Smoked in the Last Year: No Review of Systems Negative: Fever Negative: Chest Pain Negative: Shortness Of Breath Positive: Myalgia - bilateral shoulder pain All Other Systems Reviewed And Are Negative: Yes Physical Exam Triage Information Reviewed: Yes Vital Signs On Initial Exam: Initial Vitals Temp Pulse Resp BP Pulse Ox 98.8 F 113 20 146/79 95 02/11/17 22:10 02/11/17 22:10 02/11/17 22:10 02/11/17 22:10 02/11/17 22:10 Vital Signs Reviewed: Yes Appearance: Positive: Well-Appearing Skin: Positive: Warm, Dry Head/Face: Positive: Normal Head/Face Inspection Eyes: Positive: Normal, Conjunctiva Clear Respiratory/Lung Sounds: Positive: Clear to Auscultation, Breath Sounds Present Cardiovascular: Positive: Normal, RRR Musculoskeletal: Positive: Limited @ - bilateral shoulder, Other - good pulses, capillary refill<2 secs, unable to move shoulder greater than 90 degrees even with passive ROM, good fisher pot strength Diagnostics - Vital Signs Vital Signs Temp Pulse Resp BP Pulse Ox 02/11/17 23:30 115 119/70 93 02/11/17 23:10 117 94 02/11/17 22:10 98.8 F 113 20 146/79 95 - Laboratory Lab Statement: Any lab studies that have been ordered have been reviewed, and results considered in the medical decision making process. - CT shoulder CT Interpretation: Positive (See Comments) - marked osteroarthritis right glenohmeral joint with probable large loculated joint effusion extending into biceps tendon sheath as well as into posterior proximal upper arm soft tissue CT Interpretation Completed By: Radiologist Course/Dx - Course Course Of Treatment: 71M presents with bilateral shoulder pain today. He has history of bilateral shoulder pain that has been seen here before for. Today he was reaching for something on the top shelf with both hands when he felt a pull in his left shoulder and so he compensated and thought he dislocated his right shoulder. He has limited ROM of both shoulder. He denies any numbness or tingling. He has chronic weakness of his shoulders. on exam has limited ROM of shoulder even with passive ROM so unable to do a good shoulder exam. good fisher pot strength, good pulses. xray unable to read right shoulder that well so got CT no dislocation. explained can not get u/s here for shoulder for muscle tear told him to follow up with primary or ortho for this. patient understands and agrees with plan. - Diagnoses Differential Diagnosis/HQI/PQRI: Positive: Arthritis, Fracture (Closed), Strain Provider Diagnoses: Bilateral shoulder pain Discharge - Discharge Plan Condition: Good Disposition: HOME Patient Education Materials: Shoulder Pain (ED) Referrals: Ted Núñez MD [Medical Doctor] - Liam Patel MD [Primary Care Provider] - Additional Instructions: Take Tylenol every 6 hours as needed for pain Ice/heat Do range of motion activities for shoulder as tolerated Follow up with ortho Return to ED if develop any new or worsening symptoms
[2017-02-12 01:36] VITALS: BP 129/89
--- NOTE | 2017-02-12 07:46 | RAD ---
HISTORY: Bilateral shoulder pain after injury COMPARISONS: November 18, 2016 VIEWS: 4, frontal and outlet views of the left shoulder and of the right shoulder FINDINGS: Right: BONE DENSITY: There is diffuse osteopenia. BONES: There is no displaced fracture. JOINTS: There is advanced osteoarthritic change of the glenohumeral joint. There is moderate osteoarthritis of the AC joint. ALIGNMENT: There is no dislocation. The alignment is anatomic. SOFT TISSUES: Unremarkable. Left: BONE DENSITY: There is diffuse osteopenia. BONES: There is no displaced fracture. JOINTS: There is advanced osteoarthritis of the glenohumeral joint. There is moderate osteoarthritis of the AC joint ALIGNMENT: There is no dislocation. The alignment is anatomic. SOFT TISSUES: Unremarkable. OTHER FINDINGS: None. IMPRESSION: 1. BILATERAL ADVANCED OSTEOARTHRITIS. 2. OSTEOPENIA. 3. NO ACUTE OSSEOUS INJURY. THE DEGREE OF OSTEOPENIA MAY MAKE A NONDISPLACED FRACTURE RADIOGRAPHICALLY OCCULT. IF SYMPTOMS PERSIST, RECOMMEND REPEAT IMAGING.
--- NOTE | 2017-02-12 07:59 | RAD ---
Indication: Right shoulder pain. CT of the right shoulder was obtained in the axial plane. Sagittal and coronal reconstructed images were obtained Marked degenerative changes of the glenohumeral joint is noted. No definite fracture is identified. Minimal AC joint arthritis is noted. The visualized supraspinatous muscle appears to be grossly intact however although evaluation is limited. There is likely a right pleural effusion noted. There is fluid in the shoulder joint with low density material. Fluid is noted along the biceps tendon sheath as well consistent with tenosynovitis. IMPRESSION: Degenerative changes of the right glenohumeral joint without evidence of fracture. Right glenohumeral joint humeral joint fluid as well as fluid in the tendon sheath of the biceps tendon.
== END | disposition home or self-care (01) ==
LOC: ED 22:05
DX: M25.512 Pain in left shoulder (principal); M25.511 Pain in right shoulder; Z87.891 Personal history of nicotine dependence
CPT/HCPCS: 99282

== ENCOUNTER 2017-07-13 09:08 | Emergency (ER) | payer MEDICARE, MEDICAID ==
[2017-07-13] MEDS ORDERED: NS 0.9% 1000 ML* 2,000 ML IV ONE (09:38)
[2017-07-13] MEDS ORDERED: Ondansetron INJ* 2 MG/ML VIAL IV ONE (09:40)
[2017-07-13 10:02] LABS: ABS Basophils 0.1 10^3/ul (0-0.2); ABS Eosinophils 0.1 10^3/ul (0-0.6); ABS Lymphocytes 1.5 10^3/ul (1.0-4.8); ABS Monocytes 0.8 10^3/ul (0-0.8); ABS Neutrophils 6.7 10^3/ul (1.5-7.7); ABS Nucleated RBC 0 10^3/ul; Eosinophil % 1.3 % (0-6); Hematocrit 39 % (42-52); Hemoglobin 13.1 g/dl (14.0-18.0); Lymphocyte % 16.7 % (25-47); Mean Corpuscular HGB Conc 34 g/dl (31-36); Mean Corpuscular Hemoglobin 33 pg (27-31); Mean Corpuscular Volume 96 fL (80-94); Mean Platelet Volume 6 um3 (7.4-10.4); Nucleated Red Blood Cells % 0; Platelet Count 222 10^3/ul (150-450); Red Blood Count 4.02 10^6/ul (4.0-5.4); Red Cell Distribution Width 14 % (10.5-15); White Blood Count 9.2 10^3/ul (3.5-10.8)
[2017-07-13 10:14] LABS: EGFR Non-African American 37.4 (>60)
[2017-07-13 10:16] LABS: INR 0.9 (0.77-1.02)
--- NOTE | 2017-07-13 10:18 | RAD ---
Indication: Tachycardia. Single frontal view of the chest performed at 0958 hours was reviewed. Comparison is made with previous exam dated December 26, 1716. No mediastinal shift is noted. Heart is of normal size and configuration. Lung skaggs appear clear. Large hiatal hernia is noted. IMPRESSION: NO ACTIVE CARDIOPULMONARY DISEASE IS NOTED. LARGE HIATAL HERNIA IS NOTED.
[2017-07-13] MEDS ORDERED: Iodixanol* (CONTRAST) 320 MG/ML 100 ML SDV IV ONE (10:43)
[2017-07-13 11:37] LABS: Urine Appearance Cloudy; Urine Blood Negative (Negative); Urine Color Yellow; Urine Ketones Negative (Negative); Urine Protein Negative (Negative); Urine Specific Gravity 1.009 (1.010-1.030); Urine Urobilinogen Negative (Negative)
--- NOTE | 2017-07-13 11:54 | RAD ---
INDICATION: Abdominal pain, bloating and vomiting. COMPARISON: Comparison is made with a prior CT of the abdomen and pelvis from March 08, 2016. TECHNIQUE: A CT scan of the abdomen and pelvis was performed with intravenous and oral contrast following intravenous injection of 114 ml of Omnipaque 300 nonionic contrast. Contiguous axial sections were obtained from the lung bases through the symphysis pubis. Images were reconstructed in the coronal and sagittal planes. FINDINGS: There is a small infiltrate in the right lower lobe. There are small bilateral pleural effusions. The liver and spleen are normal in size. The liver is decreased in attenuation consistent with fatty infiltration. No calcified gallstones are seen. The pancreas appears within normal limits. The kidneys and adrenal glands are normal in size. There are several small right renal calculi measuring up to 0.5 cm in size. No hydronephrosis is seen. There are bilateral renal cysts. In addition there is a complex cyst arising from the posterior aspect of the right kidney which appears to have a thin area of calcification in the rim measuring 3.3 x 3.0 cm in size. This has decreased in size in previously measured 4.7 x 3.5 cm in size. No bladder wall thickening or calcifications are seen. The prostate gland appears mildly enlarged measuring 5.5 cm in diameter. The aorta is normal in caliber with mild calcific plaque present. No significant enlarged retroperitoneal lymph nodes are seen. There is a large hiatal hernia containing the fundus and a portion of the body of the stomach which is slightly more distended than on the prior study. The small bowel colon appear nondistended. The appendix is within normal limits. There is moderate descending and sigmoid diverticulosis without evidence for diverticulitis or colitis. There is a small periapical hernia containing fat. No free intraperitoneal air or fluid is seen. No significant focal osseous abnormality is seen. IMPRESSION: 1. SMALL BILATERAL PLEURAL EFFUSIONS AND SMALL DEPENDENT RIGHT LOWER LOBE INFILTRATE. 2. LARGE HIATAL HERNIA, SLIGHTLY MORE DISTENDED THAN ON THE PRIOR STUDY. 3. NONOBSTRUCTING RIGHT RENAL CALCULI. 4. COMPLEX RIGHT RENAL CYST SLIGHTLY DECREASED IN SIZE.
--- NOTE | 2017-07-13 14:37 | ED ---
Burton Talbert Stephanie, scribed for Randy Campbell MD on 07/13/17 at 0947 . Abdominal Pain/Male - HPI Summary HPI Summary: The pt is a 71 y/o M presenting to the ED with vomiting that began yesterday. Symptoms include abd pain than began 1 week ago, abd bloating, dry mouth, dehydration, diaphoresis, incontinence of stool and lower extremity weakness. The pt rates his pain as an 8 in severity and describes his abdominal symptoms as a dull pain. The pt denies urinary incontinence and dysuria. The pt reports that he has history of a hiatal hernia that has not been treated in years. He reports that his normal HR is 110 BPM. - History of Current Complaint Chief Complaint: EDNauseaVomitDiarrh Stated Complaint: VOMITING Time Seen by Provider: 07/13/17 09:13 Hx Obtained From: Patient Onset/Duration: Gradual Onset, Still Present Timing: Constant Pain Intensity: 8 Pain Scale Used: 0-10 Numeric Radiates: No Character: Dull Aggravating Factor(s): Nothing Alleviating Factor(s): Nothing Associated Signs And Symptoms: Positive: Diaphoresis, Vomiting, Diarrhea. Negative: Urinary Symptoms - Allergies/Home Medications Allergies/Adverse Reactions: Allergies Allergy/AdvReac Type Severity Reaction Status Date / Time Codeine Allergy Unknown Verified 12/19/16 12:17 Reaction Details Ibuprofen Allergy Unknown Verified 05/02/17 14:11 Reaction Details Morphine Allergy Unknown Verified 12/19/16 12:17 Reaction Details Rosuvastatin [From Crestor] Allergy Unknown Verified 12/19/16 12:17 Reaction Details Home Medications: Home Medications Acetaminophen [Acetaminophen Extra Stren] 500 mg PO QID PRN 07/13/17 [History Confirmed 07/13/17] Multivitamins/Minerals TAB* [Theragran/minerals TAB*] 1 tab PO BID 07/13/17 [ History Confirmed 07/13/17] Ondansetron TAB* [Zofran 4 MG Tab*] 8 mg PO TID PRN 07/13/17 [History Confirmed 07/13/17] Polyethylene Glycol 3350* [Miralax*] 17 gm PO DAILY PRN 07/13/17 [History Confirmed 07/13/17] busPIRone TAB* [Buspar TAB*] 10 mg PO TID 07/13/17 [History Confirmed 07/13/17] traMADol TAB* [Ultram*] 100 mg PO Q8H PRN MDD 300mg 07/13/17 [History Confirmed 07/13/17] PMH/Surg Hx/FS Hx/Imm Hx Endocrine/Hematology History: Reports: Hx Thyroid Disease Denies: Hx Diabetes Cardiovascular History: Reports: Hx Angina, Hx Hypercholesterolemia, Hx Hypertension Denies: Hx Angioplasty, Hx Congestive Heart Failure, Hx Embolism Respiratory History: Denies: Hx Asthma, Hx Chronic Obstructive Pulmonary Disease (COPD), Hx Lung Cancer, Hx Pleural Effusion, Hx Pulmonary Edema, Hx Pulmonary Embolism, Hx Seasonal Allergies, Hx Sleep Apnea GI History: Reports: Hx Gastroesophageal Reflux Disease, Hx Hiatal Hernia Denies: Hx Irritable Bowel History: Denies: Hx Dialysis, Hx Kidney Infection, Hx Kidney Stones, Hx Renal Disease Musculoskeletal History: Reports: Hx Arthritis, Hx Back Problems Sensory History: Reports: Hx Contacts or Glasses, Hx Eye Injury - eyes swollen shut Denies: Hx Cataracts, Hx Glaucoma, Hx Hearing Aid Opthamlomology History: Reports: Hx Contacts or Glasses, Hx Eye Injury - eyes swollen shut Denies: Hx Cataracts, Hx Glaucoma Neurological History: Reports: Hx Developmental Delay, Hx Headaches, Hx Transient Ischemic Attacks (TIA) Denies: Hx Migraine, Hx Seizures, Hx Spinal Cord Injury Psychiatric History: Reports: Hx Anxiety Denies: Hx Depression - Cancer History Cancer Type, Location and Year: Skin cancer 1999 - Surgical History Surgery Procedure, Year, and Place: None - Immunization History Date of Tetanus Vaccine: up to date Infectious Disease History: No Infectious Disease History: Denies: Traveled Outside the [place] in Last 30 Days - Family History Known Family History: Positive: Cardiac Disease, Hypertension Negative: Diabetes - Social History Occupation: Retired Lives: Assisted Living - [facility] Alcohol Use: None Hx Substance Use: No Substance Use Type: Reports: None Hx Tobacco Use: Yes Smoking Status (MU): Former Smoker Type: Cigarettes Have You Smoked in the Last Year: No Review of Systems Positive: Skin Diaphoresis. Negative: Fever Positive: Other - dry mouth, dehydration, Positive: Abdominal Pain, Vomiting, Other - abd bloating, Positive: incontinence - of stool. Negative: urinary incontinence. Negative: dysuria Positive: Weakness - lower extremity All Other Systems Reviewed And Are Negative: Yes Physical Exam - Summary Physical Exam Summary: General: well-appearing, no pain distress Skin: warm, color reflects adequate perfusion, dry Head: normal Eyes: EOMI, MADDY ENT: oral mucosa dry Neck: supple, nontender Respiratory: CTA, breath sounds present Cardiovascular: Tachycardic Abdomen: Minimal tenderness to palpation. No edema. Bowel: Hypoactive bowel sounds, Mild tympany Musculoskeletal: normal, strength/ROM intact Neurological: normal, sensory/motor intact, A&O x3 Psychological: affect/mood appropriate Triage Information Reviewed: Yes Vital Signs On Initial Exam: Initial Vitals Temp Pulse Resp BP Pulse Ox 97.8 F 127 20 151/90 94 07/13/17 09:10 07/13/17 09:10 07/13/17 09:10 07/13/17 09:10 07/13/17 09:10 Vital Signs Reviewed: Yes Diagnostics - Vital Signs Vital Signs Temp Pulse Resp BP Pulse Ox 07/13/17 09:10 97.8 F 127 20 151/90 94 - Laboratory Lab Results: Lab Results 07/13/17 07/13/17 07/13/17 Range/Units 09:50 09:50 09:50 WBC (3.5-10.8) 10^3/ul RBC (4.0-5.4) 10^6/ul Hgb (14.0-18.0) g/dl Hct (42-52) % MCV (80-94) fL MCH (27-31) pg MCHC (31-36) g/dl RDW (10.5-15) % Plt Count (150-450) 10^3/ul MPV (7.4-10.4) um3 Neut % (Auto) (38-83) % Lymph % (Auto) (25-47) % Mcdowell % (Auto) (1-9) % Eos % (Auto) (0-6) % Baso % (Auto) (0-2) % Absolute Neuts (auto) (1.5-7.7) 10^3/ul Absolute Lymphs (auto) (1.0-4.8) 10^3/ul Absolute Monos (auto) (0-0.8) 10^3/ul Absolute Eos (auto) (0-0.6) 10^3/ul Absolute Basos (auto) (0-0.2) 10^3/ul Absolute Nucleated RBC 10^3/ul Nucleated RBC % INR (Anticoag Therapy) 0.90 (0.77-1.02) APTT 29.2 (26.0-36.3) seconds Sodium 138 (133-145) mmol/L Potassium 3.6 (3.5-5.0) mmol/L Chloride 100 L (101-111) mmol/L Carbon Dioxide 31 (22-32) mmol/L Anion Gap 7 (2-11) mmol/L BUN 20 (6-24) mg/dL Creatinine 1.81 H (0.67-1.17) mg/dL Est GFR ( Amer) 48.0 (>60) Est GFR (Non-Af Amer) 37.4 (>60) BUN/Creatinine Ratio 11.0 (8-20) Glucose 135 H (70-100) mg/dL Lactic Acid (0.5-2.0) mmol/L Calcium 10.6 H (8.6-10.3) mg/dL Total Bilirubin 0.30 (0.2-1.0) mg/dL AST 23 (13-39) U/L ALT 20 (7-52) U/L Alkaline Phosphatase 83 (34-104) U/L Total Creatine Kinase 160 (10-223) U/L CK-MB (CK-2) 6.9 H (0.6-6.3) ng/mL Troponin I 0.02 (<0.04) ng/mL C-Reactive Protein 8.54 H (< 5.00) mg/L B-Natriuretic Peptide 13 ( - 100) pg/mL Total Protein 6.3 L (6.4-8.9) g/dL Albumin 3.7 (3.2-5.2) g/dL Globulin 2.6 (2-4) g/dL Albumin/Globulin Ratio 1.4 (1-3) Lipase 26 (11.0-82.0) U/L Urine Color Urine Appearance Urine pH (5-9) Ur Specific [place] (1.010-1.030) Urine Protein (Negative) Urine Ketones (Negative) Urine Blood (Negative) Urine Nitrate (Negative) Urine Bilirubin (Negative) Urine Urobilinogen (Negative) Ur Leukocyte Esterase (Negative) Urine Glucose (Negative) Urine Ascorbic Acid (Negative) 07/13/17 07/13/17 07/13/17 Range/Units 09:50 09:50 10:55 WBC 9.2 (3.5-10.8) 10^3/ul RBC 4.02 (4.0-5.4) 10^6/ul Hgb 13.1 L (14.0-18.0) g/dl Hct 39 L (42-52) % MCV 96 H (80-94) fL MCH 33 H (27-31) pg MCHC 34 (31-36) g/dl RDW 14 (10.5-15) % Plt Count 222 (150-450) 10^3/ul MPV 6 L (7.4-10.4) um3 Neut % (Auto) 73.0 (38-83) % Lymph % (Auto) 16.7 L (25-47) % Mcdowell % (Auto) 8.4 (1-9) % Eos % (Auto) 1.3 (0-6) % Baso % (Auto) 0.6 (0-2) % Absolute Neuts (auto) 6.7 (1.5-7.7) 10^3/ul Absolute Lymphs (auto) 1.5 (1.0-4.8) 10^3/ul Absolute Monos (auto) 0.8 (0-0.8) 10^3/ul Absolute Eos (auto) 0.1 (0-0.6) 10^3/ul Absolute Basos (auto) 0.1 (0-0.2) 10^3/ul Absolute Nucleated RBC 0 10^3/ul Nucleated RBC % 0 INR (Anticoag Therapy) (0.77-1.02) APTT (26.0-36.3) seconds Sodium (133-145) mmol/L Potassium (3.5-5.0) mmol/L Chloride (101-111) mmol/L Carbon Dioxide (22-32) mmol/L Anion Gap (2-11) mmol/L BUN (6-24) mg/dL Creatinine (0.67-1.17) mg/dL Est GFR ( Amer) (>60) Est GFR (Non-Af Amer) (>60) BUN/Creatinine Ratio (8-20) Glucose (70-100) mg/dL Lactic Acid 2.5 H* (0.5-2.0) mmol/L Calcium (8.6-10.3) mg/dL Total Bilirubin (0.2-1.0) mg/dL AST (13-39) U/L ALT (7-52) U/L Alkaline Phosphatase (34-104) U/L Total Creatine Kinase (10-223) U/L CK-MB (CK-2) (0.6-6.3) ng/mL Troponin I (<0.04) ng/mL C-Reactive Protein (< 5.00) mg/L B-Natriuretic Peptide ( - 100) pg/mL Total Protein (6.4-8.9) g/dL Albumin (3.2-5.2) g/dL Globulin (2-4) g/dL Albumin/Globulin Ratio (1-3) Lipase (11.0-82.0) U/L Urine Color Yellow Urine Appearance Cloudy Urine pH 7.0 (5-9) Ur Specific [place] 1.009 L (1.010-1.030) Urine Protein Negative (Negative) Urine Ketones Negative (Negative) Urine Blood Negative (Negative) Urine Nitrate Negative (Negative) Urine Bilirubin Negative (Negative) Urine Urobilinogen Negative (Negative) Ur Leukocyte Esterase Negative (Negative) Urine Glucose Negative (Negative) Urine Ascorbic Acid * H (Negative) Result Diagrams: 07/13/17 09:50 07/13/17 09:50 Lab Statement: Any lab studies that have been ordered have been reviewed, and results considered in the medical decision making process. - Radiology CXR Xray Interpretation: No Acute Changes Radiology Interpretation Completed By: Radiologist - NO ACTIVE CARDIOPULMONARY DISEASE IS NOTED. LARGE HIATAL HERNIA IS NOTED. - CT Abdomen/Pelvis CT Interpretation: Positive (See Comments) CT Interpretation Completed By: Radiologist - 1. SMALL BILATERAL PLEURAL EFFUSIONS AND SMALL DEPENDENT RIGHT LOWER LOBE INFILTRATE. 2. LARGE HIATAL HERNIA, SLIGHTLY MORE DISTENDED THAN ON THE PRIOR STUDY. 3. NONOBSTRUCTING RIGHT RENAL CALCULI. 4. COMPLEX RIGHT RENAL CYST SLIGHTLY DECREASED IN SIZE. - EKG 09:38 EKG Rhythm: Sinus Tachycardia - [address] Segment: Normal Ectopy: None Abdominal Pain Fem Course/Dx - Course Course Of Treatment: Medications reviewed. DISCUSSED RESULTS WITH PATIENT. F/ U PMD; RETURN IF WORSE. - Diagnoses Provider Diagnoses: Abdominal pain, Hiatal hernia Discharge - Discharge Plan Condition: Stable Disposition: HOME Prescriptions: Omeprazole CAP* [Prilosec CAP* 20 MG] 20 mg PO BID #30 rika. Ondansetron ODT TAB* [Zofran 4 MG Odt TAB*] 4 mg PO Q6H PRN #20 tab.odt PRN Reason: Nausea Sucralfate TAB* [Carafate*] 1 gm PO QID #60 tab Patient Education Materials: Hiatal Hernia (ED), Abdominal Pain (ED) Referrals: Liam Patel MD [Primary Care Provider] - Additional Instructions: FOLLOW UP WITH YOUR DOCTOR. RETURN TO THE EMERGENCY DEPARTMENT FOR ANY WORSENING OF YOUR CONDITION; PAIN, FEVER, VOMITING, YOU FEEL ILL OR QUESTIONS OR CONCERNS. The documentation as recorded by the Burton turner Stephanie accurately reflects the service I personally performed and the decisions made by me, Randy Campbell MD.
[2017-07-13 15:06] VITALS: BP 152/98
== END 2017-07-13 15:05 | disposition home or self-care (01) ==
LOC: ED 09:08
DX: R10.84 Generalized abdominal pain (principal); K44.9 Diaphragmatic hernia without obstruction or gangrene; R61 Generalized hyperhidrosis; R11.10 Vomiting, unspecified; R19.7 Diarrhea, unspecified; J90 Pleural effusion, not elsewhere classified; N20.0 Calculus of kidney; N28.1 Cyst of kidney, acquired; R00.0 Tachycardia, unspecified; E07.9 Disorder of thyroid, unspecified; I20.9 Angina pectoris, unspecified; I10 Essential (primary) hypertension; E78.00 Pure hypercholesterolemia, unspecified; K21.9 Gastro-esophageal reflux disease without esophagitis; F41.9 Anxiety disorder, unspecified; Z85.828 Personal history of other malignant neoplasm of skin; Z88.6 Allergy status to analgesic agent; Z88.5 Allergy status to narcotic agent; Z87.891 Personal history of nicotine dependence
CPT/HCPCS: 36415; 71045; 74177; 80053; 81003; 82550; 82553; 83605; 83690; 83880; 84484; 85025; 85610; 85730; 86140; 93005; 96361; 96374; 99283; J2405; Q9967

== ENCOUNTER 2017-07-20 18:21 | Emergency (ER) | payer MEDICARE, MEDICAID ==
--- NOTE | 2017-07-20 19:34 | ED ---
Lower Extremity - HPI Summary HPI Summary: 71M presents with bilateral leg pain. He states he has noticed increase swelling in bilateral legs over past couple days. He is complaining of right foot and calf pain and left ankle pain. He denies any chest pain or SOB. He denies any history of DVT or recent travel. He denies any history of CHF. He denies any injury. He has not taken anything for pain. He has been keeping the area elevated. He states he needs an xray of the area. He has not followed up with his primary about this. - History of Current Complaint Chief Complaint: EDExtremityLower Stated Complaint: LEG PAIN Time Seen by Provider: 07/20/17 18:50 Pain Intensity: 7 - Allergies/Home Medications Allergies/Adverse Reactions: Allergies Allergy/AdvReac Type Severity Reaction Status Date / Time Codeine Allergy Unknown Verified 07/20/17 18:44 Reaction Details Ibuprofen Allergy Unknown Verified 07/20/17 18:44 Reaction Details Morphine Allergy Unknown Verified 07/20/17 18:44 Reaction Details Rosuvastatin [From Crestor] Allergy Unknown Verified 07/20/17 18:44 Reaction Details PMH/Surg Hx/FS Hx/Imm Hx Endocrine/Hematology History: Reports: Hx Thyroid Disease Denies: Hx Diabetes Cardiovascular History: Reports: Hx Angina, Hx Hypercholesterolemia, Hx Hypertension, Other Cardiovascular Problems/Disorders - CHRONIC TACHYCARDIA Denies: Hx Angioplasty, Hx Congestive Heart Failure, Hx Embolism Respiratory History: Denies: Hx Asthma, Hx Chronic Obstructive Pulmonary Disease (COPD), Hx Lung Cancer, Hx Pleural Effusion, Hx Pulmonary Edema, Hx Pulmonary Embolism, Hx Seasonal Allergies, Hx Sleep Apnea GI History: Reports: Hx Gastroesophageal Reflux Disease, Hx Hiatal Hernia Denies: Hx Irritable Bowel History: Denies: Hx Dialysis, Hx Kidney Infection, Hx Kidney Stones, Hx Renal Disease Musculoskeletal History: Reports: Hx Arthritis, Hx Back Problems Sensory History: Reports: Hx Contacts or Glasses, Hx Eye Injury - eyes swollen shut Denies: Hx Cataracts, Hx Glaucoma, Hx Hearing Aid Opthamlomology History: Reports: Hx Contacts or Glasses, Hx Eye Injury - eyes swollen shut Denies: Hx Cataracts, Hx Glaucoma Neurological History: Reports: Hx Developmental Delay, Hx Headaches, Hx Transient Ischemic Attacks (TIA) Denies: Hx Migraine, Hx Seizures, Hx Spinal Cord Injury Psychiatric History: Reports: Hx Anxiety Denies: Hx Depression - Cancer History Cancer Type, Location and Year: Skin cancer 1999 - Surgical History Surgery Procedure, Year, and Place: None - Immunization History Date of Tetanus Vaccine: up to date Infectious Disease History: No Infectious Disease History: Denies: Traveled Outside the [place] in Last 30 Days - Family History Known Family History: Positive: Cardiac Disease, Hypertension Negative: Diabetes - Social History Alcohol Use: None Hx Substance Use: No Substance Use Type: Reports: None Hx Tobacco Use: Yes Smoking Status (MU): Former Smoker Type: Cigarettes Have You Smoked in the Last Year: No Review of Systems Negative: Fever Negative: Chest Pain Negative: Shortness Of Breath Positive: Myalgia - bilteral leg pain, Edema All Other Systems Reviewed And Are Negative: Yes Physical Exam Triage Information Reviewed: Yes Vital Signs On Initial Exam: Initial Vitals Temp Pulse Resp BP Pulse Ox 98.5 F 124 16 145/93 93 07/20/17 18:45 07/20/17 18:45 07/20/17 18:45 07/20/17 18:45 07/20/17 18:45 Vital Signs Reviewed: Yes Appearance: Positive: Well-Appearing Skin: Positive: Warm, Dry Head/Face: Positive: Normal Head/Face Inspection Eyes: Positive: Normal, Conjunctiva Clear Respiratory/Lung Sounds: Positive: Clear to Auscultation, Breath Sounds Present Cardiovascular: Positive: Normal, RRR Musculoskeletal: Positive: Strength/ROM Intact - bilateral legs, Roma Sign Right, Edema Left, Edema Right, Other - good pulses, sensation grossly intact, left ankle tenderness, right calf and foot tenderness. Negative: Roma Sign Left Neurological: Positive: Normal Diagnostics - Vital Signs Vital Signs Temp Pulse Resp BP Pulse Ox 07/20/17 18:45 98.5 F 124 16 145/93 93 - Laboratory Result Diagrams: 07/20/17 20:20 07/20/17 20:20 Lab Statement: Any lab studies that have been ordered have been reviewed, and results considered in the medical decision making process. - Radiology foot and ankle Xray Interpretation: Positive (See Comments) - dependent edema Radiology Interpretation Completed By: Radiologist - Ultrasound No standard instances Ultrasound Interpretation: No Acute Changes Ultrasound Interpretation Completed By: Radiologist Lower Extremity Course/Dx - Course Course Of Treatment: 71M presents with bilateral leg pain. He states he has noticed increase swelling in bilateral legs over past couple days. He is complaining of right foot and calf pain and left ankle pain. He denies any chest pain or SOB. He denies any history of DVT or recent travel. He denies any history of CHF. He denies any injury. He has not taken anything for pain. He has been keeping the area elevated. He states he needs an xray of the area. He has not followed up with his primary about this. on exam has edema of bilateral legs. pos homans right leg. neg homans left. tenderness left ankle, tenderness over right foot and calf. u/s right leg normal. foot and ankle edema no fracture. labs electrolyes normal and bnp normal. will discharge to follow up with primary as do not have a cause for swelling. patient understand and agrees with plan. - Diagnoses Differential Diagnosis/HQI/PQRI: Positive: DVT, Sprain, Other - chf Provider Diagnoses: Bilateral leg pain, Leg edema Discharge - Discharge Plan Condition: Good Disposition: HOME Patient Education Materials: Leg Edema (ED) Referrals: Liam Patel MD [Primary Care Provider] - Additional Instructions: Follow up with primary within [address] ice on area Take Tylenol every 6 hours for pain Return to ED if develop any new or worsening symptoms
--- NOTE | 2017-07-20 19:40 | RAD ---
INDICATION: Pain and swelling. COMPARISON: August 24, 2016 TECHNIQUE: Duplex interrogation of the Lowerextremity was performed. FINDINGS: Deep veins: The common femoral, great saphenous, profunda femoris, proximal, mid, and distal deep femoral, popliteal, posterior tibial, and peroneal veins are patent. There is normal compressibility, augmentation, and phasic flow. Superficial veins: There are no findings of superficial thrombophlebitis. Popliteal fossa:There is no evidence of a popliteal cyst. Soft tissues: There is dependent edema. IMPRESSION: No evidence of deep venous thrombosis
--- NOTE | 2017-07-20 20:18 | RAD ---
INDICATION: Chronic lower extremity swelling. COMPARISON: None TECHNIQUE: AP, lateral, and oblique views were obtained. FINDINGS: There is diffuse soft tissue swelling. There is no acute fracture or dislocation. IMPRESSION: DEPENDENT EDEMA.
--- NOTE | 2017-07-20 20:19 | RAD ---
INDICATION: Chronic dependent edema with worsening COMPARISON: None TECHNIQUE: AP, lateral, and oblique views were obtained. FINDINGS: There is osteopenia. There are hammertoe deformities. There is no acute bony change. There are vascular calcifications. There is diffuse soft tissue swelling. IMPRESSION: DEPENDENT EDEMA. NO ACUTE FINDINGS.
[2017-07-20 20:31] LABS: ABS Basophils 0.1 10^3/ul (0-0.2); ABS Eosinophils 0.1 10^3/ul (0-0.6); ABS Monocytes 0.8 10^3/ul (0-0.8); ABS Nucleated RBC 0 10^3/ul; Eosinophil % 1.3 % (0-6); Hematocrit 38 % (42-52); Hemoglobin 12.9 g/dl (14.0-18.0); Lymphocyte % 17.9 % (25-47); Mean Corpuscular HGB Conc 34 g/dl (31-36); Mean Corpuscular Hemoglobin 32 pg (27-31); Mean Corpuscular Volume 95 fL (80-94); Mean Platelet Volume 6 um3 (7.4-10.4); Nucleated Red Blood Cells % 0; Platelet Count 241 10^3/ul (150-450); Red Blood Count 4.02 10^6/ul (4.0-5.4); Red Cell Distribution Width 14 % (10.5-15); White Blood Count 11.1 10^3/ul (3.5-10.8)
[2017-07-20 20:48] LABS: EGFR Non-African American 65.7 (>60)
[2017-07-20 20:49] LABS: INR 0.9 (0.77-1.02)
[2017-07-20 21:40] VITALS: BP 145/86
== END 2017-07-20 21:39 | disposition home or self-care (01) ==
LOC: ED 18:21
DX: M79.605 Pain in left leg (principal); M79.604 Pain in right leg; R60.0 Localized edema; E07.9 Disorder of thyroid, unspecified; I20.9 Angina pectoris, unspecified; I10 Essential (primary) hypertension; R00.0 Tachycardia, unspecified; E78.00 Pure hypercholesterolemia, unspecified; K21.9 Gastro-esophageal reflux disease without esophagitis; K44.9 Diaphragmatic hernia without obstruction or gangrene; F41.9 Anxiety disorder, unspecified; Z85.828 Personal history of other malignant neoplasm of skin; Z88.6 Allergy status to analgesic agent; Z88.5 Allergy status to narcotic agent; Z87.891 Personal history of nicotine dependence
CPT/HCPCS: 36415; 80053; 83880; 85025; 85610; 85730; 99282

== ENCOUNTER 2017-08-10 19:51 | Emergency (ER) | payer MEDICARE, MEDICAID ==
[2017-08-10] MEDS ORDERED: HYDROcodone/ACETAMIN 5-325 MG* 1 TAB PO ONE (22:20)
[2017-08-11 00:04] VITALS: BP 131/78
--- NOTE | 2017-08-11 08:34 | RAD ---
HISTORY: Left lower extremity pain and edema TECHNIQUE: Multiple transverse and longitudinal ultrasound images were obtained of the veins of the left lower extremity using grayscale, color Doppler, and spectral Doppler imaging with and without compression and with augmentation. FINDINGS: VEINS: The common femoral vein, deep femoral vein, femoral vein and popliteal vein are compressible throughout their course, with normal flow on color Doppler imaging and normal response to augmentation on spectral Doppler imaging. SOFT TISSUES: Grossly normal. No large popliteal fossa cyst was identified. IMPRESSION: No sonographic evidence of deep vein thrombosis.
--- NOTE | 2017-08-12 12:31 | ED ---
Blanca Talbert Julia, scribed for Michael Llamas MD on 08/10/17 at 2319 . Lower Extremity - HPI Summary HPI Summary: This patient is a 71 year old M BIBA to [facility] with a chief complaint of LLE from mid calf to posterior ankle pain since 17:00 last night. The patient rates the pain 4/10 in severity. Patient reports inability to bear weight. Patient denies changes in activity, recent trauma, or recent long distant travel. Pt states slurred speech is normal for him. Jaylon drug or alcohol use, no recent losses of consciousness. Pain worse with bearing weight. He reports increased activity, increased walking. - History of Current Complaint Chief Complaint: EDExtremityLower Stated Complaint: LT LEG PAIN Time Seen by Provider: 08/10/17 22:12 Hx Obtained From: Patient Mechanism Of Injury: Unknown Onset/Duration: Still Present Pain Intensity: 4 Pain Scale Used: 0-10 Numeric Timing: Constant Location: Is Discrete @ - L mid calf and L posterior ankle Aggravating Factor(s): Weight Bearing Able to Bear Weight: No - Allergies/Home Medications Allergies/Adverse Reactions: Allergies Allergy/AdvReac Type Severity Reaction Status Date / Time MS Codeine [Codeine] Allergy Unknown Verified 07/20/17 18:44 Reaction Details MS Ibuprofen [Ibuprofen] Allergy Unknown Verified 07/20/17 18:44 Reaction Details MS Morphine [Morphine] Allergy Unknown Verified 07/20/17 18:44 Reaction Details MS Rosuvastatin Allergy Unknown Verified 07/20/17 18:44 [From Crestor] Reaction Details PMH/Surg Hx/FS Hx/Imm Hx Previously Healthy: No Endocrine/Hematology History: Reports: Hx Thyroid Disease Denies: Hx Diabetes Cardiovascular History: Reports: Hx Angina, Hx Hypercholesterolemia, Hx Hypertension, Other Cardiovascular Problems/Disorders - CHRONIC TACHYCARDIA Denies: Hx Angioplasty, Hx Congestive Heart Failure, Hx Embolism Respiratory History: Denies: Hx Asthma, Hx Chronic Obstructive Pulmonary Disease (COPD), Hx Lung Cancer, Hx Pleural Effusion, Hx Pulmonary Edema, Hx Pulmonary Embolism, Hx Seasonal Allergies, Hx Sleep Apnea GI History: Reports: Hx Gastroesophageal Reflux Disease, Hx Hiatal Hernia Denies: Hx Irritable Bowel History: Denies: Hx Dialysis, Hx Kidney Infection, Hx Kidney Stones, Hx Renal Disease Musculoskeletal History: Reports: Hx Arthritis, Hx Back Problems Sensory History: Reports: Hx Contacts or Glasses, Hx Eye Injury - eyes swollen shut Denies: Hx Cataracts, Hx Glaucoma, Hx Hearing Aid Opthamlomology History: Reports: Hx Contacts or Glasses, Hx Eye Injury - eyes swollen shut Denies: Hx Cataracts, Hx Glaucoma Neurological History: Reports: Hx Developmental Delay, Hx Headaches, Hx Transient Ischemic Attacks (TIA) Denies: Hx Migraine, Hx Seizures, Hx Spinal Cord Injury Psychiatric History: Reports: Hx Anxiety Denies: Hx Depression - Cancer History Cancer Type, Location and Year: Skin cancer 1999 - Surgical History Surgery Procedure, Year, and Place: None - Immunization History Date of Tetanus Vaccine: up to date Infectious Disease History: No Infectious Disease History: Denies: Traveled Outside the [place] in Last 30 Days - Family History Known Family History: Positive: Cardiac Disease, Hypertension Negative: Diabetes - Social History Alcohol Use: None Hx Substance Use: No Substance Use Type: Reports: None Hx Tobacco Use: Yes Smoking Status (MU): Former Smoker Type: Cigarettes Have You Smoked in the Last Year: No Review of Systems Negative: Fever, Chills Negative: Erythema Negative: Sore Throat Negative: Chest Pain Negative: Shortness Of Breath, Cough Negative: Abdominal Pain, Vomiting, Nausea Negative: dysuria, hematuria Positive: Myalgia - L calf and ankle. Negative: Edema Negative: Rash Neurological: Negative - dizziness All Other Systems Reviewed And Are Negative: Yes Physical Exam - Summary Physical Exam Summary: Constitutional: Well-developed, Well-nourished, Alert. (-) Distressed Skin: Warm, Dry HENT: Normocephalic; Atraumatic Eyes: Conjunctiva normal Neck: Musculoskeletal ROM normal neck. (-) JVD, (-) Stridor, (-) Tracheal deviation Cardio: Rhythm regular, rate normal, Heart sounds normal; Intact distal pulses; The pedal pulses are 2+ and symmetric. Radial pulses are 2+ and symmetric. (-) Murmur Pulmonary/Chest wall: Effort normal. (-) Respiratory distress, (-) Wheezes, (-) Rales Abd: Soft. (-) Tenderness, (-) Distension, (-) Guarding, (-) Rebound Musculoskeletal: (-) Edema. + Homans sign. Montes's test negative, mcmurrays negative. No bony tenderness. Lymph: (-) Cervical adenopathy Neuro: Alert, Oriented x3, Strength normal, Cranial nerves II-XII are grossly intact. (-) Dysmetria, (-) Nystagmus, (-) Ataxia by finger to nose testing, (-) Sensory deficit. Psych: Mood and affect Anushka Triage Information Reviewed: Yes Vital Signs On Initial Exam: Initial Vitals Temp Pulse Resp BP Pulse Ox 98.3 F 115 16 144/90 94 08/10/17 19:55 08/10/17 19:55 08/10/17 19:55 08/10/17 19:55 08/10/17 19:55 Vital Signs Reviewed: Yes Diagnostics - Vital Signs Vital Signs Temp Pulse Resp BP Pulse Ox 08/10/17 19:55 98.3 F 115 16 144/90 94 - Laboratory Lab Statement: Any lab studies that have been ordered have been reviewed, and results considered in the medical decision making process. - Additional Comments Diagnostic Additional Comments: LLE US reveals no DVT. Re-Evaluation - Re-Evaluation First Eval Change: Improved - agrees with dc plan Lower Extremity Course/Dx - Course Course Of Treatment: Pt present with L mid calf and posterior ankle pain. An US reveals no DVT. There is no concern for compartment syndrome or fx. There was no trauma to pt. - Diagnoses Provider Diagnoses: Pain of left calf, Achilles tendinitis Discharge - Discharge Plan Condition: Stable Disposition: HOME Prescriptions: traMADol TAB* [Ultram*] 50 mg PO Q6HR PRN #16 tab MDD 4 PRN Reason: Severe Pain Patient Education Materials: Achilles Tendinitis (ED) Referrals: Liam Patel MD [Primary Care Provider] - 2 Weeks (Follow up with Dr. Patel in 2-3 days) Additional Instructions: RETURN TO THE EMERGENCY DEPARTMENT FOR CHANGING OR WORSENING SYMPTOMS. The documentation as recorded by the Blanca turner Julia accurately reflects the service I personally performed and the decisions made by , Michael Llamas MD.
== END 2017-08-11 00:03 | disposition home or self-care (01) ==
LOC: ED 19:51
DX: M79.662 Pain in left lower leg (principal); M76.62 Achilles tendinitis, left leg; Z87.891 Personal history of nicotine dependence; E07.9 Disorder of thyroid, unspecified; K21.9 Gastro-esophageal reflux disease without esophagitis; Z85.828 Personal history of other malignant neoplasm of skin
CPT/HCPCS: 99283

== ENCOUNTER 2017-08-27 14:23 | Emergency (ER) | payer MEDICARE, MEDICAID ==
[2017-08-27 15:54] LABS: ABS Basophils 0 10^3/ul (0-0.2); ABS Eosinophils 0.1 10^3/ul (0-0.6); ABS Lymphocytes 1.8 10^3/ul (1.0-4.8); ABS Monocytes 0.8 10^3/ul (0-0.8); ABS Nucleated RBC 0 10^3/ul; Eosinophil % 1.9 % (0-6); Hematocrit 38 % (42-52); Hemoglobin 12.7 g/dl (14.0-18.0); Lymphocyte % 23.1 % (25-47); Mean Corpuscular HGB Conc 33 g/dl (31-36); Mean Corpuscular Hemoglobin 32 pg (27-31); Mean Corpuscular Volume 95 fL (80-94); Mean Platelet Volume 6 um3 (7.4-10.4); Nucleated Red Blood Cells % 0; Platelet Count 231 10^3/ul (150-450); Red Cell Distribution Width 15 % (10.5-15); White Blood Count 7.8 10^3/ul (3.5-10.8)
[2017-08-27 16:00] LABS: INR 0.92 (0.77-1.02)
[2017-08-27 16:11] LABS: EGFR Non-African American 76.7 (>60)
--- NOTE | 2017-08-27 16:30 | RAD ---
Indication: Bilateral leg edema Duplex Doppler sonography of the deep venous system of both lower extremities was performed. Bilaterally the common femoral veins, proximal greater saphenous veins, proximal deep femoral veins, femoral veins, popliteal veins, posterior tibial veins and peroneal veins appear patent and compressible. IMPRESSION: NO EVIDENCE OF DEEP VENOUS THROMBOSIS OF EITHER LOWER EXTREMITY IS PRESENT.
[2017-08-27 18:22] VITALS: BP 132/83
--- NOTE | 2017-08-27 20:08 | ED ---
Luna Talbert Thomas, scribed for Dorian Garcia MD on 08/27/17 at 1523 . Lower Extremity - HPI Summary HPI Summary: The patient is a 71 year old male brought in by ambulance complaining of edema on bilateral legs. Per triage note, the patient got anxious earlier today and had chest pain, although he denies any chest pain in the ED. Past medial history includes MR. - History of Current Complaint Chief Complaint: EDGeneral Stated Complaint: CHEST PAIN Time Seen by Provider: 08/27/17 15:17 Hx Obtained From: Patient Onset/Duration: Still Present Severity Currently: Moderate Pain Intensity: 0 Pain Scale Used: 0-10 Numeric Timing: Constant Location: Is Discrete @ - bilateral legs Associated Signs And Symptoms: Negative: Fever Alleviating Factor(s): Nothing - Allergies/Home Medications Allergies/Adverse Reactions: Allergies Allergy/AdvReac Type Severity Reaction Status Date / Time MS Codeine [Codeine] Allergy Unknown Verified 07/20/17 18:44 Reaction Details MS Ibuprofen [Ibuprofen] Allergy Unknown Verified 07/20/17 18:44 Reaction Details MS Morphine [Morphine] Allergy Unknown Verified 07/20/17 18:44 Reaction Details MS Rosuvastatin Allergy Unknown Verified 07/20/17 18:44 [From Crestor] Reaction Details Home Medications: Home Medications Acetaminophen [Acetaminophen Extra Strength] 500 mg PO QID PRN 08/27/17 [ History Confirmed 08/27/17] Sucralfate TAB* [Carafate*] 1 gm PO TID 08/27/17 [History Confirmed 08/27/17] PMH/Surg Hx/FS Hx/Imm Hx Endocrine/Hematology History: Reports: Hx Thyroid Disease Denies: Hx Diabetes Cardiovascular History: Reports: Hx Angina, Hx Hypercholesterolemia, Hx Hypertension, Other Cardiovascular Problems/Disorders - CHRONIC TACHYCARDIA Denies: Hx Angioplasty, Hx Congestive Heart Failure, Hx Embolism Respiratory History: Denies: Hx Asthma, Hx Chronic Obstructive Pulmonary Disease (COPD), Hx Lung Cancer, Hx Pleural Effusion, Hx Pulmonary Edema, Hx Pulmonary Embolism, Hx Seasonal Allergies, Hx Sleep Apnea GI History: Reports: Hx Gastroesophageal Reflux Disease, Hx Hiatal Hernia Denies: Hx Irritable Bowel History: Denies: Hx Dialysis, Hx Kidney Infection, Hx Kidney Stones, Hx Renal Disease Musculoskeletal History: Reports: Hx Arthritis, Hx Back Problems Sensory History: Reports: Hx Contacts or Glasses, Hx Eye Injury - eyes swollen shut Denies: Hx Cataracts, Hx Glaucoma, Hx Hearing Aid Opthamlomology History: Reports: Hx Contacts or Glasses, Hx Eye Injury - eyes swollen shut Denies: Hx Cataracts, Hx Glaucoma Neurological History: Reports: Hx Developmental Delay, Hx Headaches, Hx Transient Ischemic Attacks (TIA) Denies: Hx Migraine, Hx Seizures, Hx Spinal Cord Injury Psychiatric History: Reports: Hx Anxiety Denies: Hx Depression - Cancer History Cancer Type, Location and Year: Skin cancer 1999 - Surgical History Surgery Procedure, Year, and Place: None - Immunization History Date of Tetanus Vaccine: up to date Date of Influenza Vaccine: utd Infectious Disease History: No Infectious Disease History: Denies: Traveled Outside the [place] in Last 30 Days - Family History Known Family History: Positive: Cardiac Disease, Hypertension Negative: Diabetes - Social History Alcohol Use: None Hx Substance Use: No Substance Use Type: Reports: None Hx Tobacco Use: Yes Smoking Status (MU): Former Smoker Type: Cigarettes Have You Smoked in the Last Year: No Review of Systems Negative: Fever Negative: Chest Pain Negative: Shortness Of Breath Positive: Edema All Other Systems Reviewed And Are Negative: Yes Physical Exam - Summary Physical Exam Summary: Appearance: The patient is well-nourished in no acute distress and in no acute pain. Skin: The skin is warm and dry and skin color reflects adequate perfusion. HEENT: ~The head is normocephalic and atraumatic. The pupils are equal and reactive. The conjunctivae are clear and without drainage. ~Nares are patent and without drainage. ~Mouth reveals moist mucous membranes and the throat is without erythema and exudate. ~The external ears are intact. The ear canals are patent and without drainage. The tympanic membranes are intact. Neck: the neck is supple with full range of motion and non-tender. There are no carotid bruits. ~There is no neck vein distension. Respiratory: Chest is non-tender. ~Lungs are clear to auscultation and breath sounds are symmetrical and equal. Cardiovascular: Heart is regular rate and rhythm. ~There is no murmur or rub auscultated. ~~There is peripheral edema in the lower extremities, left worse than right. Pulses are symmetrical and equal. Abdomen: The abdomen is soft and non-tender. ~There are normal bowel sounds heard in all four quadrants and there is no organomegaly palpated. Musculoskeletal: There is no back tenderness noted. ~Extremities are non-tender with full range of motion. ~There is good capillary refill. There is peripheral edema in the lower extremities, left worse than right. ~There is no calf tenderness elicited. Neurological: Patient is alert and oriented to person, place and time. ~The patient has symmetrical motor strength in all four extremities. ~Cranial nerves are grossly intact. Deep tendon reflexes are symmetrical and equal in all four extremities. Psychiatric: The patient has an appropriate affect and does not exhibit any anxiety or depression. Triage Information Reviewed: Yes Vital Signs On Initial Exam: Initial Vitals Temp Pulse Resp BP Pulse Ox 97.6 F 122 19 112/68 100 08/27/17 14:26 08/27/17 14:26 08/27/17 14:26 08/27/17 14:26 08/27/17 14:26 Vital Signs Reviewed: Yes Diagnostics - Vital Signs Vital Signs Temp Pulse Resp BP Pulse Ox 08/27/17 14:26 97.6 F 122 19 112/68 100 - Laboratory Lab Results: Lab Results 08/27/17 08/27/17 08/27/17 Range/Units 15:45 15:45 15:45 WBC 7.8 (3.5-10.8) 10^3/ul RBC 4.00 (4.0-5.4) 10^6/ul Hgb 12.7 L (14.0-18.0) g/dl Hct 38 L (42-52) % MCV 95 H (80-94) fL MCH 32 H (27-31) pg MCHC 33 (31-36) g/dl RDW 15 (10.5-15) % Plt Count 231 (150-450) 10^3/ul MPV 6 L (7.4-10.4) um3 Neut % (Auto) 64.9 (38-83) % Lymph % (Auto) 23.1 L (25-47) % [place] % (Auto) 9.9 H (1-9) % Eos % (Auto) 1.9 (0-6) % Baso % (Auto) 0.2 (0-2) % Absolute Neuts (auto) 5.0 (1.5-7.7) 10^3/ul Absolute Lymphs (auto) 1.8 (1.0-4.8) 10^3/ul Absolute Monos (auto) 0.8 (0-0.8) 10^3/ul Absolute Eos (auto) 0.1 (0-0.6) 10^3/ul Absolute Basos (auto) 0 (0-0.2) 10^3/ul Absolute Nucleated RBC 0 10^3/ul Nucleated RBC % 0 INR (Anticoag Therapy) (0.77-1.02) Sodium 137 (133-145) mmol/L Potassium 4.2 (3.5-5.0) mmol/L Chloride 105 (101-111) mmol/L Carbon Dioxide 26 (22-32) mmol/L Anion Gap 6 (2-11) mmol/L BUN 15 (6-24) mg/dL Creatinine 0.97 (0.67-1.17) mg/dL Est GFR ( Amer) 98.7 (>60) Est GFR (Non-Af Amer) 76.7 (>60) BUN/Creatinine Ratio 15.5 (8-20) Glucose 96 (70-100) mg/dL Lactic Acid (0.5-2.0) mmol/L Calcium 9.1 (8.6-10.3) mg/dL Magnesium 1.8 L (1.9-2.7) mg/dL Total Bilirubin 0.20 (0.2-1.0) mg/dL AST 21 (13-39) U/L ALT 14 (7-52) U/L Alkaline Phosphatase 82 (34-104) U/L Troponin I 0.01 (<0.04) ng/mL C-Reactive Protein 6.78 H (< 5.00) mg/L B-Natriuretic Peptide 14 ( - 100) pg/mL Total Protein 6.0 L (6.4-8.9) g/dL Albumin 3.4 (3.2-5.2) g/dL Globulin 2.6 (2-4) g/dL Albumin/Globulin Ratio 1.3 (1-3) TSH 0.22 L (0.34-5.60) mcIU/mL 08/27/17 08/27/17 Range/Units 15:45 15:45 WBC (3.5-10.8) 10^3/ul RBC (4.0-5.4) 10^6/ul Hgb (14.0-18.0) g/dl Hct (42-52) % MCV (80-94) fL MCH (27-31) pg MCHC (31-36) g/dl RDW (10.5-15) % Plt Count (150-450) 10^3/ul MPV (7.4-10.4) um3 Neut % (Auto) (38-83) % Lymph % (Auto) (25-47) % [place] % (Auto) (1-9) % Eos % (Auto) (0-6) % Baso % (Auto) (0-2) % Absolute Neuts (auto) (1.5-7.7) 10^3/ul Absolute Lymphs (auto) (1.0-4.8) 10^3/ul Absolute Monos (auto) (0-0.8) 10^3/ul Absolute Eos (auto) (0-0.6) 10^3/ul Absolute Basos (auto) (0-0.2) 10^3/ul Absolute Nucleated RBC 10^3/ul Nucleated RBC % INR (Anticoag Therapy) 0.92 (0.77-1.02) Sodium (133-145) mmol/L Potassium (3.5-5.0) mmol/L Chloride (101-111) mmol/L Carbon Dioxide (22-32) mmol/L Anion Gap (2-11) mmol/L BUN (6-24) mg/dL Creatinine (0.67-1.17) mg/dL Est GFR ( Amer) (>60) Est GFR (Non-Af Amer) (>60) BUN/Creatinine Ratio (8-20) Glucose (70-100) mg/dL Lactic Acid 0.6 (0.5-2.0) mmol/L Calcium (8.6-10.3) mg/dL Magnesium (1.9-2.7) mg/dL Total Bilirubin (0.2-1.0) mg/dL AST (13-39) U/L ALT (7-52) U/L Alkaline Phosphatase (34-104) U/L Troponin I (<0.04) ng/mL C-Reactive Protein (< 5.00) mg/L B-Natriuretic Peptide ( - 100) pg/mL Total Protein (6.4-8.9) g/dL Albumin (3.2-5.2) g/dL Globulin (2-4) g/dL Albumin/Globulin Ratio (1-3) TSH (0.34-5.60) mcIU/mL Result Diagrams: 08/27/17 15:45 08/27/17 15:45 Lab Statement: Any lab studies that have been ordered have been reviewed, and results considered in the medical decision making process. - Additional Comments Diagnostic Additional Comments: Bilateral Lower Extremity Ultrasound. Interpreted by Radiologist. Impression: No evidence of DVT on either lower extremity. Dr. Garcia has reviewed this report. Lower Extremity Course/Dx - Course Course Of Treatment: Mr. Gasca came in concerned about the swelling in his bilateral legs and especially the left one. He has had swellong for a few weeks and was given 20 mgs of lasix to take daily but he says it's not helping. He was evaluated for DVT which was negative and labs were WNL. I will double his lasix and recommend close F/U. - Diagnoses Provider Diagnoses: Edema, peripheral Discharge - Discharge Plan Condition: Stable Disposition: HOME Referrals: Liam Patel MD [Primary Care Provider] - The documentation as recorded by the Luna turner Thomas accurately reflects the service I personally performed and the decisions made by me, Dorian Garcia MD.
== END 2017-08-27 18:21 | disposition home or self-care (01) ==
LOC: ED 14:23
DX: R60.0 Localized edema (principal); R53.1 Weakness; E07.9 Disorder of thyroid, unspecified; I20.9 Angina pectoris, unspecified; I10 Essential (primary) hypertension; E78.00 Pure hypercholesterolemia, unspecified; R00.0 Tachycardia, unspecified; K21.9 Gastro-esophageal reflux disease without esophagitis; K44.9 Diaphragmatic hernia without obstruction or gangrene; R62.50 Unspecified lack of expected normal physiological development in childhood; Z86.73 Personal history of transient ischemic attack (TIA), and cerebral infarction without residual deficits; F41.9 Anxiety disorder, unspecified; Z88.6 Allergy status to analgesic agent; Z88.5 Allergy status to narcotic agent; Z88.8 Allergy status to other drugs, medicaments and biological substances; Z87.891 Personal history of nicotine dependence
CPT/HCPCS: 36415; 80053; 83605; 83735; 83880; 84443; 84484; 85025; 85610; 86140; 93005; 93970; 99283

== ENCOUNTER 2017-09-14 09:02 | Emergency (ER) | payer MEDICARE, MEDICAID ==
[2017-09-14 10:38] LABS: ABS Basophils 0.1 10^3/ul (0-0.2); ABS Eosinophils 0.3 10^3/ul (0-0.6); ABS Lymphocytes 1.8 10^3/ul (1.0-4.8); ABS Monocytes 0.8 10^3/ul (0-0.8); ABS Neutrophils 6.5 10^3/ul (1.5-7.7); ABS Nucleated RBC 0 10^3/ul; Eosinophil % 3.5 % (0-6); Hematocrit 37 % (42-52); Hemoglobin 12.4 g/dl (14.0-18.0); Lymphocyte % 18.5 % (25-47); Mean Corpuscular HGB Conc 33 g/dl (31-36); Mean Corpuscular Hemoglobin 32 pg (27-31); Mean Corpuscular Volume 95 fL (80-94); Mean Platelet Volume 6 um3 (7.4-10.4); Nucleated Red Blood Cells % 0; Platelet Count 252 10^3/ul (150-450); Red Blood Count 3.88 10^6/ul (4.0-5.4); Red Cell Distribution Width 14 % (10.5-15); White Blood Count 9.5 10^3/ul (3.5-10.8)
--- NOTE | 2017-09-14 10:53 | RAD ---
HISTORY: Palpitation COMPARISONS: July 13, 2017 VIEWS: 2: Frontal and lateral views of the chest. FINDINGS: CARDIOMEDIASTINAL SILHOUETTE: The cardiomediastinal silhouette is normal. SOFYA: The sofya are normal. PLEURA: The costophrenic angles are sharp. No pleural abnormalities are noted. LUNG PARENCHYMA: There is patchy alveolar opacification of the left lung base. ABDOMEN: There is moderate hiatal hernia BONES AND SOFT TISSUES: Yes degenerative changes are noted of the shoulders bilaterally. OTHER: None. IMPRESSION: 1. HIATAL HERNIA. 2. PATCHY ATELECTASIS VERSUS EARLY CONSOLIDATION OF THE LEFT LUNG BASE. RECOMMEND FOLLOW-UP UNTIL RESOLUTION TO EXCLUDE UNDERLYING PULMONARY PARENCHYMAL PATHOLOGY.
[2017-09-14 11:04] LABS: EGFR Non-African American 76.7 (>60)
[2017-09-14 11:33] LABS: Urine Appearance Clear; Urine Blood Negative (Negative); Urine Color Yellow; Urine Ketones Negative (Negative); Urine Protein Negative (Negative); Urine Specific Gravity 1.008 (1.010-1.030); Urine Urobilinogen Negative (Negative)
--- NOTE | 2017-09-14 11:49 | RAD ---
INDICATION: LEFT calf pain and edema. COMPARISON: August 27, 2017 TECHNIQUE: Coe scale, color Doppler, and spectral analysis of the deep veins of the LEFT lower extremity. Vessel compression, phasicity, and augmentation assessed. REPORT: The LEFT common femoral, great saphenous, profunda femoral, femoral, popliteal, and posterior tibial veins are patent. One of the LEFT peroneal veins appears patent. The second more posterior peroneal vein appears to have age indeterminate nonocclusive thrombus. At the medial posterior proximal to mid LEFT calf at the level of the medial head of the gastrocnemius muscle there is a sharply circumscribed grossly anechoic intramuscular fluid collection measuring up to 12.6 cm cephalocaudal by 1.8 x 2.6 cm in the axial plane. Minimal debris within the fluid collection. Negative for thickened or hyperemic margins. Patency of the RIGHT common femoral vein documented. IMPRESSION: 1. Age indeterminate nonocclusive thrombosis of one of the paired peroneal veins of the LEFT calf. 2. Sharply circumscribed grossly simple appearing fluid collection within the medial head of the gastrocnemius muscle of the LEFT calf is most suspicious for an intramuscular hematoma. No compelling complex features to favor an abscess collection. This was not visualized on the prior exam.
[2017-09-14] MEDS ORDERED: Iohexol 350* (CONTRAST) 500 ML MDV IV ONE (12:10)
--- NOTE | 2017-09-14 13:19 | RAD ---
HISTORY: Shortness of breath, DVT, sepsis, rule out PE COMPARISONS: March 08, 2016 TECHNIQUE: Multiple contiguous axial CT scans of the chest were obtained after the administration of nonionic intravenous contrast, timed to the pulmonary arterial phase of contrast enhancement.. Coronal and sagittal multiplanar reformations are also submitted for review. FINDINGS: NECK AND THYROID: The lower neck and thyroid are unremarkable. CHEST WALL: There is no lower cervical, axillary, or supraclavicular lymphadenopathy by size criteria. HEART AND PERICARDIUM: The heart is unremarkable. AORTA AND PULMONARY VASCULATURE: The aorta and pulmonary vasculature are normal. MEDIASTINUM: There is no mediastinal lymphadenopathy by size criteria. SOFYA: There is no hilar lymphadenopathy by size criteria. AIRWAY AND ESOPHAGUS: The airway is unremarkable, without endobronchial filling defect. The esophagus is grossly normal. LUNG PARENCHYMA: The lungs are clear. PLEURA: There is small bilateral pleural effusions. UPPER ABDOMEN: There is a large hiatal hernia containing much of the body of the stomach. BONES AND SOFT TISSUES: There is a mild scoliotic curvature of the spine. OTHER: None. IMPRESSION: 1. NO PULMONARY ARTERIAL FILLING DEFECT TO SUGGEST PULMONARY EMBOLISM. 2. LARGE HIATAL HERNIA. 3. SMALL BILATERAL PLEURAL EFFUSIONS.
[2017-09-14 17:49] VITALS: BP 112/79
--- NOTE | 2017-09-15 09:12 | ED ---
Valeriy Talbert Angela, scribed for Bharath Mosleey MD on 09/14/17 at 1018 . Lower Extremity - HPI Summary HPI Summary: This pt is a 71 y/o male presenting to [facility] via EMS from [place] c/o left lower extremity swelling worsening over the past 2 days. Pt reports that his left leg and left foot is swollen. He notes the redness on left leg is new. Pt additionally states he has irritation in his throat, which makes him cough, and palpitations. Denies chest pain, SOB, abd pain, nausea, vomiting. - History of Current Complaint Chief Complaint: EDDysrhythmPalp Stated Complaint: POSSIBLE ANEMIA Time Seen by Provider: 09/14/17 09:52 Hx Obtained From: Patient Mechanism Of Injury: Other - no trauma Onset of Pain: Days Onset/Duration: Days Severity Currently: Mild Pain Intensity: 2 Pain Scale Used: 0-10 Numeric Timing: Lasting Days Location: Is Discrete @ - left leg Associated Signs And Symptoms: Positive: Swelling, Other - cough, sore throat, palpitations Aggravating Factor(s): Nothing Alleviating Factor(s): Nothing Able to Bear Weight: Yes - Allergies/Home Medications Allergies/Adverse Reactions: Allergies Allergy/AdvReac Type Severity Reaction Status Date / Time codeine Allergy Unknown Verified 09/14/17 10:52 Reaction Details ibuprofen Allergy Unknown Verified 09/14/17 10:52 Reaction Details morphine Allergy Unknown Verified 09/14/17 10:52 Reaction Details rosuvastatin [From Crestor] Allergy Unknown Verified 09/14/17 10:52 Reaction Details PMH/Surg Hx/FS Hx/Imm Hx Endocrine/Hematology History: Reports: Hx Thyroid Disease Denies: Hx Diabetes Cardiovascular History: Reports: Hx Angina, Hx Hypercholesterolemia, Hx Hypertension, Other Cardiovascular Problems/Disorders - CHRONIC TACHYCARDIA Denies: Hx Angioplasty, Hx Congestive Heart Failure, Hx Embolism Respiratory History: Denies: Hx Asthma, Hx Chronic Obstructive Pulmonary Disease (COPD), Hx Lung Cancer, Hx Pleural Effusion, Hx Pulmonary Edema, Hx Pulmonary Embolism, Hx Seasonal Allergies, Hx Sleep Apnea GI History: Reports: Hx Gastroesophageal Reflux Disease, Hx Hiatal Hernia Denies: Hx Irritable Bowel History: Denies: Hx Dialysis, Hx Kidney Infection, Hx Kidney Stones, Hx Renal Disease Musculoskeletal History: Reports: Hx Arthritis, Hx Back Problems Sensory History: Reports: Hx Contacts or Glasses, Hx Eye Injury - eyes swollen shut Denies: Hx Cataracts, Hx Glaucoma, Hx Hearing Aid Opthamlomology History: Reports: Hx Contacts or Glasses, Hx Eye Injury - eyes swollen shut Denies: Hx Cataracts, Hx Glaucoma Neurological History: Reports: Hx Developmental Delay, Hx Headaches, Hx Transient Ischemic Attacks (TIA) Denies: Hx Migraine, Hx Seizures, Hx Spinal Cord Injury Psychiatric History: Reports: Hx Anxiety Denies: Hx Depression - Cancer History Cancer Type, Location and Year: Skin cancer 1999 - Surgical History Surgery Procedure, Year, and Place: None - Immunization History Date of Tetanus Vaccine: up to date Date of Influenza Vaccine: utd Infectious Disease History: No Infectious Disease History: Denies: Traveled Outside the [place] in Last 30 Days - Family History Known Family History: Positive: Cardiac Disease, Hypertension Negative: Diabetes - Social History Alcohol Use: None Hx Substance Use: No Substance Use Type: Reports: None Hx Tobacco Use: Yes Smoking Status (MU): Former Smoker Type: Cigarettes Have You Smoked in the Last Year: No Review of Systems Negative: Fever Positive: Sore Throat Positive: Palpitations. Negative: Chest Pain Positive: Cough. Negative: Shortness Of Breath Gastrointestinal: Negative Positive: Edema - left leg Neurological: Negative All Other Systems Reviewed And Are Negative: Yes Physical Exam - Summary Physical Exam Summary: VITAL SIGNS: Reviewed. GENERAL: Patient is a well-developed and nourished male who is lying comfortable in the stretcher. Patient is not in any acute respiratory distress. HEAD AND FACE: No signs of trauma. No ecchymosis, hematomas or skull depressions. No sinus tenderness. EYES: PERRLA, EOMI x 2, No injected conjunctiva, no nystagmus. EARS: Hearing grossly intact. Ear canals and tympanic membranes are within normal limits. MOUTH: Oropharynx within normal limits. NECK: Supple, trachea is midline, no adenopathy, no JVD, no carotid bruit, no c- spine tenderness, neck with full ROM. CHEST: Symmetric, no tenderness at palpation LUNGS: Clear to auscultation bilaterally. No wheezing or crackles. CVS: Regular rate and rhythm, S1 and S2 present, no murmurs or gallops appreciated. ABDOMEN: Soft, non-tender. No signs of distention. No rebound no guarding, and no masses palpated. Bowel sounds are normal. EXTREMITIES: FROM in all major joints, no cyanosis or clubbing. Left lower extremity edema. Erythema in the medial aspect of the left foot. NEURO: Alert and oriented x 3. No acute neurological deficits. Speech is normal and follows commands. SKIN: Dry and warm Triage Information Reviewed: Yes Vital Signs On Initial Exam: Initial Vitals Temp Pulse Resp BP Pulse Ox 98.5 F 117 16 132/83 95 09/14/17 09:16 09/14/17 09:16 09/14/17 09:16 09/14/17 09:16 09/14/17 09:16 Vital Signs Reviewed: Yes Diagnostics - Vital Signs Vital Signs Temp Pulse Resp BP Pulse Ox 09/14/17 09:18 118 23 97 09/14/17 09:16 98.5 F 117 16 132/83 95 - Laboratory Result Diagrams: 09/14/17 10:10 09/14/17 10:10 Lab Statement: Any lab studies that have been ordered have been reviewed, and results considered in the medical decision making process. - Radiology Chest XR Xray Interpretation: Positive (See Comments) - IMPRESSION: 1. Hiatal hernia. 2. Patchy atelectasis versus early consolidation of the left lung base. Recommend follow-up until resolution to exclude underlying pulmonary parenchymal pathology. Dr. Moseley has reviewed this radiology report. Radiology Interpretation Completed By: Radiologist - CT CTA chest/thorax CT Interpretation: Positive (See Comments) - IMPRESSION: 1. No pulmonary arterial filling defect to suggest pulmonary embolism. 2. Large hiatal hernia. 3. Small bilateral pleural effusions. Dr. Moseley has reviewed this radiology report. CT Interpretation Completed By: Radiologist - EKG 10:24 Cardiac Rate: Tachycardia EKG Rhythm: Sinus Tachycardia - at 112 bpm EKG Interpretation: No ST elevation. Normal axis. - Additional Comments Diagnostic Additional Comments: Venous Doppler Study, left lower extremity, as read by radiologist: IMPRESSION: 1. Age indeterminate nonocclusive thrombosis of one of the paired peroneal veins of the LEFT calf. 2. Sharply circumscribed grossly simple appearing fluid collection within the medial head of the gastrocnemius muscle of the LEFT calf is most suspicious for an intramuscular hematoma. No compelling complex features to favor an abscess collection. This was not visualized on the prior exam. Dr. Moseley has reviewed this radiology report. Lower Extremity Course/Dx - Course Assessment/Plan: This pt is a 71 y/o male presenting to [facility] via EMS c/o left lower extremity swelling worsening over the past 2 days. Pt reports that his left leg and left foot is swollen. He notes the redness on left leg is new. Pt additionally states he has irritation in his throat, which makes him cough, and palpitations. Denies chest pain, SOB, abd pain, nausea, vomiting. Test results without any significant abnormalities except for hemoglobin of 12.4, hematocrit of 37, glucose is 118. Urine is negative for UTI. Chest XR: 1. Hiatal hernia. 2. Patchy atelectasis versus early consolidation of the left lung base. Recommend follow-up until resolution to exclude underlying pulmonary parenchymal pathology. Ultrasound of left lower extremity shows: 1. Age indeterminate nonocclusive thrombosis of one of the paired peroneal veins of the LEFT calf. 2. Sharply circumscribed grossly simple appearing fluid collection within the medial head of the gastrocnemius muscle of the LEFT calf is most suspicious for an intramuscular hematoma. No compelling complex features to favor an abscess collection. This was not visualized on the prior exam. Ultrasound shows DVT, therefore a CTA chest was ordered. CTA shows 1. No pulmonary arterial filling defect to suggest pulmonary embolism. 2. Large hiatal hernia. 3. Small bilateral pleural effusions. CTA is negative for a PE. Pt is already on anticoagulants; therefore the pt will be discharged to home with follow up from his PCP. He is instructed to return to the ED for any worsening or new symptoms. Pt is hemodynamically stable, alert and oriented x3. - Diagnoses Provider Diagnoses: Edema of left lower extremity, Chronic deep vein thrombosis (DVT), on anticoagulants, Dry cough Discharge - Discharge Plan Condition: Stable Disposition: HOME Patient Education Materials: Deep Vein Thrombosis (ED), Leg Edema (ED), Acute Cough (ED) Referrals: Liam Patel MD [Primary Care Provider] - 3 Days Additional Instructions: Please follow up with your primary care provider. RETURN TO THE ED FOR ANY WORSENING SYMPTOMS. The documentation as recorded by the Valeriy turner Angela accurately reflects the service I personally performed and the decisions made by me, Bharath Moseley MD.
== END 2017-09-14 15:00 | disposition home or self-care (01) ==
LOC: ED 09:02
DX: R60.0 Localized edema (principal); I82.5Z2 Chronic embolism and thrombosis of unspecified deep veins of left distal lower extremity; R05 Cough; J90 Pleural effusion, not elsewhere classified; K44.9 Diaphragmatic hernia without obstruction or gangrene; Z79.01 Long term (current) use of anticoagulants; Z87.891 Personal history of nicotine dependence; Z88.6 Allergy status to analgesic agent; Z88.5 Allergy status to narcotic agent; Z88.8 Allergy status to other drugs, medicaments and biological substances
CPT/HCPCS: 36415; 71046; 71275; 80053; 81003; 82550; 82553; 83605; 83735; 83880; 84443; 84484; 85025; 93005; 99284; Q9967

== ENCOUNTER 2017-10-21 09:54 | Emergency (ER) | payer MEDICARE, MEDICAID ==
[2017-10-21] MEDS ORDERED: NS 0.9% 1000 ML* 1,000 ML IV ONE (10:10)
[2017-10-21 10:32] LABS: ABS Basophils 0.1 10^3/ul (0-0.2); ABS Eosinophils 0.2 10^3/ul (0-0.6); ABS Lymphocytes 1.6 10^3/ul (1.0-4.8); ABS Monocytes 0.6 10^3/ul (0-0.8); ABS Neutrophils 5.9 10^3/ul (1.5-7.7); ABS Nucleated RBC 0 10^3/ul; Hematocrit 39 % (42-52); Lymphocyte % 19.2 % (25-47); Mean Corpuscular HGB Conc 34 g/dl (31-36); Mean Corpuscular Hemoglobin 32 pg (27-31); Mean Corpuscular Volume 94 fL (80-94); Nucleated Red Blood Cells % 0; Platelet Count 274 10^3/ul (150-450); Red Blood Count 4.12 10^6/ul (4.0-5.4); Red Cell Distribution Width 14 % (10.5-15); White Blood Count 8.3 10^3/ul (3.5-10.8)
[2017-10-21 10:39] LABS: INR 1.07 (0.77-1.02)
[2017-10-21 10:48] LABS: EGFR Non-African American 74.1 (>60)
[2017-10-21] MEDS ORDERED: Iohexol 350* (CONTRAST) 500 ML MDV IV ONE (10:51)
--- NOTE | 2017-10-21 11:29 | RAD ---
INDICATION: Shortness of breath and tachycardia COMPARISON: Most recent CTA of the chest is dated September 14, 2017 TECHNIQUE: Axial source images were acquired following the administration of 78 mm Omnipaque [address] angiographic technique. Coronal and sagittal reconstructed images were constructed and reviewed. FINDINGS: There there are no filling defects in the pulmonary arteries to indicate acute pulmonary embolic disease. Again seen are small bibasilar pleural effusions, slightly larger on the right than the left and increased in size since the previous CTA. There is compressive consolidation at the adjacent dependent lower lobes bilaterally, also worse on the right than the left. There is faint groundglass density seen in the lungs in a distribution most consistent with mild fluid overload. There is a large hiatal hernia similar in appearance to the previous CT of the chest causing adjacent compressive atelectasis of the right lung. The heart is normal in size. There is no evidence of pericardial effusion. There is no evidence of aortic aneurysm or dissection. There is no mediastinal, hilar, or axillary lymphadenopathy. Degenerative changes of the thoracic spine includes loss of intervertebral disc height. At the T10 vertebral body there is a stable hemangioma. The spleen measures 12.6 cm in greatest axial dimension similar to the previous CT of the chest. IMPRESSION: 1. No CT of evidence of pulmonary embolism. 2. Chronic findings described in more detail above are similar to the September 14, 2017 CT examination. There is been a small interval increase in the size of the right worse than left pleural effusions.
--- NOTE | 2017-10-21 11:35 | RAD ---
HISTORY: Pain and swelling in the left lower extremity TECHNIQUE: Multiple transverse and longitudinal ultrasound images were obtained of the veins of the left lower extremity using grayscale, color Doppler, and spectral Doppler imaging with and without compression and with augmentation. FINDINGS: VEINS: The common femoral vein, deep femoral vein, femoral vein and popliteal vein are compressible throughout their course, with normal flow on color Doppler imaging and normal response to augmentation on spectral Doppler imaging. SOFT TISSUES: Grossly normal. No large popliteal fossa cyst was identified. IMPRESSION: No sonographic evidence of deep vein thrombosis.
[2017-10-21 12:05] LABS: Urine Appearance Clear; Urine Blood 3+ (Negative); Urine Color Yellow; Urine Ketones Negative (Negative); Urine Protein Negative (Negative); Urine Specific Gravity 1.013 (1.010-1.030); Urine Urobilinogen Negative (Negative)
--- NOTE | 2017-10-21 12:31 | ED ---
Ashlie Talbert Abhishek, scribed for Randy Campbell MD on 10/21/17 at 1014 . HPI Chest Pain - HPI Summary HPI Summary: The pt is a 71 y/o male presenting to the [facility] with a chief complaint of chest pain since earlier today 10/21/17. The pt states he "woke up" with these symptoms after falling asleep when eating breakfast. The the onset was also sudden. The pt reports of chest pressure, numbness at the hands, dizziness, palpitations, edema at the ankles, SOB and that at the time he was hyperventilating. Pt denies abd pain. The patient rates the pain 1/10 in severity. Symptoms aggravated by nothing. Symptoms alleviated by nothing. - History of Current Complaint Chief Complaint: EDShortnessOfBreath Time Seen by Provider: 10/21/17 09:55 Hx Obtained From: Patient Onset/Duration: Started Hours Ago Timing: Constant Initial Severity: Mild Current Severity: Mild Pain Intensity: 1 Pain Scale Used: 0-10 Numeric Character: Fast, Pressure/Squeezing Aggravating Factor(s): Nothing Alleviating Factor(s): Nothing Associated Signs and Symptoms: Positive: Chest Pain, Numbness - at the hands, Shortness of Breath - Risk Factors Pulmonary Embolism Risk Factors: Negative - Additional Pertinent History Primary Care Physician: [id number] - Allergy/Home Medications Allergies/Adverse Reactions: Allergies Allergy/AdvReac Type Severity Reaction Status Date / Time codeine Allergy Unknown Verified 10/21/17 10:05 Reaction Details ibuprofen Allergy Unknown Verified 10/21/17 10:05 Reaction Details morphine Allergy Unknown Verified 10/21/17 10:05 Reaction Details rosuvastatin [From Crestor] Allergy Unknown Verified 10/21/17 10:05 Reaction Details Home Medications: Home Medications Diltiazem TAB* [Cardizem 30 MG Tab*] 30 mg PO TID 10/21/17 [History Confirmed ] Omeprazole CAP* [Prilosec CAP* 20 MG] 40 mg PO BID 10/21/17 [History Confirmed 10/21/17] Rivaroxaban TAB(*) [Xarelto 15 mg(*)] 15 mg PO DAILY 10/21/17 [History Confirmed 10/21/17] PMH/Surg Hx/FS Hx/Imm Hx Endocrine/Hematology History: Reports: Hx Thyroid Disease Denies: Hx Diabetes Cardiovascular History: Reports: Hx Angina, Hx Hypercholesterolemia, Hx Hypertension, Hx Peripheral Vascular Disease, Other Cardiovascular Problems/ Disorders - CHRONIC TACHYCARDIA Denies: Hx Angioplasty, Hx Congestive Heart Failure, Hx Embolism, Hx Pacemaker/ICD Respiratory History: Reports: Other Respiratory Problems/Disorders - chronic cough Denies: Hx Asthma, Hx Chronic Obstructive Pulmonary Disease (COPD), Hx Lung Cancer, Hx Pleural Effusion, Hx Pulmonary Edema, Hx Pulmonary Embolism, Hx Seasonal Allergies, Hx Sleep Apnea GI History: Reports: Hx Gastroesophageal Reflux Disease, Hx Hiatal Hernia, Other GI Disorders Denies: Hx Irritable Bowel History: Reports: Hx Benign Prostatic Hyperplasia Denies: Hx Dialysis, Hx Kidney Infection, Hx Kidney Stones, Hx Renal Disease Musculoskeletal History: Reports: Hx Arthritis, Hx Back Problems Sensory History: Reports: Hx Contacts or Glasses, Hx Eye Injury Denies: Hx Cataracts, Hx Glaucoma, Hx Hearing Aid Opthamlomology History: Reports: Hx Contacts or Glasses, Hx Eye Injury Denies: Hx Cataracts, Hx Glaucoma Neurological History: Reports: Hx Developmental Delay, Hx Headaches, Hx Transient Ischemic Attacks (TIA), Other Neuro Impairments/Disorders - speech impediment Denies: Hx Migraine, Hx Seizures, Hx Spinal Cord Injury Psychiatric History: Reports: Hx Anxiety, Other Psychiatric Issues/Disorders Denies: Hx Depression, Hx Panic Disorder - Cancer History Cancer Type, Location and Year: Skin cancer 1999 - Surgical History Surgery Procedure, Year, and Place: None - Immunization History Date of Tetanus Vaccine: up to date Date of Influenza Vaccine: utd - Family History Known Family History: Positive: Cardiac Disease, Hypertension Negative: Diabetes - Social History Alcohol Use: None Hx Substance Use: No Substance Use Type: Reports: None Hx Tobacco Use: Yes Smoking Status (MU): Former Smoker Type: Cigarettes Have You Smoked in the Last Year: No Review of Systems Constitutional: Negative Eyes: Negative ENT: Negative Positive: Palpitations, Chest Pain - Chest pressure Positive: Shortness Of Breath, Other - hyperventilation Gastrointestinal: Negative Genitourinary: Negative Musculoskeletal: Negative Skin: Negative Neurological: Other - dizziness Positive: Numbness - At the hands Psychological: Normal All Other Systems Reviewed And Are Negative: Yes Physical Exam - Summary Physical Exam Summary: General: well-appearing, no pain distress Skin: warm, color reflects adequate perfusion, dry Head: normal Eyes: EOMI, MADDY ENT: normal Neck: supple, nontender Respiratory: CTA, breath sounds present CardiovasculaTachy carid Abdomen: soft, nontender Bowel: present Musculoskeletal: bilateral mild pedal edema Neurological: normal, sensory/motor intact, A&O x3 Psychological: affect/mood appropriate Triage Information Reviewed: Yes Vital Signs On Initial Exam: Initial Vitals BP 113/74 10/21/17 10:04 Vital Signs Reviewed: Yes Diagnostics - Vital Signs Vital Signs Temp Pulse Resp BP Pulse Ox 10/21/17 10:06 98.9 F 118 22 113/74 92 10/21/17 10:05 117 17 91 10/21/17 10:04 113/74 - Laboratory Lab Results: Lab Results 10/21/17 10/21/17 10/21/17 Range/Units 10:22 10:22 10:22 WBC (3.5-10.8) 10^3/ul RBC (4.0-5.4) 10^6/ul Hgb (14.0-18.0) g/dl Hct (42-52) % MCV (80-94) fL MCH (27-31) pg MCHC (31-36) g/dl RDW (10.5-15) % Plt Count (150-450) 10^3/ul MPV (7.4-10.4) um3 Neut % (Auto) (38-83) % Lymph % (Auto) (25-47) % Foster % (Auto) (0-7) % Eos % (Auto) (0-6) % Baso % (Auto) (0-2) % Absolute Neuts (auto) (1.5-7.7) 10^3/ul Absolute Lymphs (auto) (1.0-4.8) 10^3/ul Absolute Monos (auto) (0-0.8) 10^3/ul Absolute Eos (auto) (0-0.6) 10^3/ul Absolute Basos (auto) (0-0.2) 10^3/ul Absolute Nucleated RBC 10^3/ul Nucleated RBC % INR (Anticoag Therapy) 1.07 H (0.77-1.02) APTT 36.0 (26.0-36.3) seconds Sodium 138 L (139-145) mmol/L Potassium 4.3 (3.5-5.0) mmol/L Chloride 107 (101-111) mmol/L Carbon Dioxide 26 (22-32) mmol/L Anion Gap 5 (2-11) mmol/L BUN 16 (6-24) mg/dL Creatinine 1.00 (0.67-1.17) mg/dL Est GFR ( Amer) 95.3 (>60) Est GFR (Non-Af Amer) 74.1 (>60) BUN/Creatinine Ratio 16.0 (8-20) Glucose 106 H (70-100) mg/dL Lactic Acid (0.5-2.0) mmol/L Calcium 9.0 (8.6-10.3) mg/dL Magnesium 1.9 (1.9-2.7) mg/dL Total Bilirubin 0.20 (0.2-1.0) mg/dL AST 17 (13-39) U/L ALT 17 (7-52) U/L Alkaline Phosphatase 81 (34-104) U/L Total Creatine Kinase 102 (10-223) U/L CK-MB (CK-2) 5.4 (0.6-6.3) ng/mL Troponin I 0.01 (<0.04) ng/mL C-Reactive Protein 4.98 (< 5.00) mg/L B-Natriuretic Peptide 7 ( - 100) pg/mL Total Protein 6.2 L (6.4-8.9) g/dL Albumin 3.7 (3.2-5.2) g/dL Globulin 2.5 (2-4) g/dL Albumin/Globulin Ratio 1.5 (1-3) Lipase 33 (11.0-82.0) U/L TSH 1.20 (0.34-5.60) mcIU/mL Urine Color Urine Appearance Urine pH (5-9) Ur Specific [place] (1.010-1.030) Urine Protein (Negative) Urine Ketones (Negative) Urine Blood (Negative) Urine Nitrate (Negative) Urine Bilirubin (Negative) Urine Urobilinogen (Negative) Ur Leukocyte Esterase (Negative) Urine WBC (Auto) (Absent) Urine RBC (Auto) (Absent) Urine Bacteria (Absent) Urine Glucose (Negative) Urine Ascorbic Acid (Negative) 10/21/17 10/21/17 10/21/17 Range/Units 10:22 10:22 11:37 WBC 8.3 (3.5-10.8) 10^3/ul RBC 4.12 (4.0-5.4) 10^6/ul Hgb 13.0 L (14.0-18.0) g/dl Hct 39 L (42-52) % MCV 94 (80-94) fL MCH 32 H (27-31) pg MCHC 34 (31-36) g/dl RDW 14 (10.5-15) % Plt Count 274 (150-450) 10^3/ul MPV 6.0 L (7.4-10.4) um3 Neut % (Auto) 70.8 (38-83) % Lymph % (Auto) 19.2 L (25-47) % Foster % (Auto) 7.2 H (0-7) % Eos % (Auto) 2.0 (0-6) % Baso % (Auto) 0.8 (0-2) % Absolute Neuts (auto) 5.9 (1.5-7.7) 10^3/ul Absolute Lymphs (auto) 1.6 (1.0-4.8) 10^3/ul Absolute Monos (auto) 0.6 (0-0.8) 10^3/ul Absolute Eos (auto) 0.2 (0-0.6) 10^3/ul Absolute Basos (auto) 0.1 (0-0.2) 10^3/ul Absolute Nucleated RBC 0 10^3/ul Nucleated RBC % 0 INR (Anticoag Therapy) (0.77-1.02) APTT (26.0-36.3) seconds Sodium (139-145) mmol/L Potassium (3.5-5.0) mmol/L Chloride (101-111) mmol/L Carbon Dioxide (22-32) mmol/L Anion Gap (2-11) mmol/L BUN (6-24) mg/dL Creatinine (0.67-1.17) mg/dL Est GFR ( Amer) (>60) Est GFR (Non-Af Amer) (>60) BUN/Creatinine Ratio (8-20) Glucose (70-100) mg/dL Lactic Acid 0.9 (0.5-2.0) mmol/L Calcium (8.6-10.3) mg/dL Magnesium (1.9-2.7) mg/dL Total Bilirubin (0.2-1.0) mg/dL AST (13-39) U/L ALT (7-52) U/L Alkaline Phosphatase (34-104) U/L Total Creatine Kinase (10-223) U/L CK-MB (CK-2) (0.6-6.3) ng/mL Troponin I (<0.04) ng/mL C-Reactive Protein (< 5.00) mg/L B-Natriuretic Peptide ( - 100) pg/mL Total Protein (6.4-8.9) g/dL Albumin (3.2-5.2) g/dL Globulin (2-4) g/dL Albumin/Globulin Ratio (1-3) Lipase (11.0-82.0) U/L TSH (0.34-5.60) mcIU/mL Urine Color Yellow Urine Appearance Clear Urine pH 6.0 (5-9) Ur Specific [place] 1.013 (1.010-1.030) Urine Protein Negative (Negative) Urine Ketones Negative (Negative) Urine Blood 3+ A (Negative) Urine Nitrate Negative (Negative) Urine Bilirubin Negative (Negative) Urine Urobilinogen Negative (Negative) Ur Leukocyte Esterase Negative (Negative) Urine WBC (Auto) Absent (Absent) Urine RBC (Auto) 3+(>10/hpf) A (Absent) Urine Bacteria Absent (Absent) Urine Glucose Negative (Negative) Urine Ascorbic Acid * A (Negative) Result Diagrams: 10/21/17 10:22 10/21/17 10:22 Lab Statement: Any lab studies that have been ordered have been reviewed, and results considered in the medical decision making process. - CT CTA Chest CT Interpretation Completed By: Radiologist - CTA Chest/Thorax reveals 1. No CT of evidence of pulmonary embolism. 2. Chronic findings described in more detail above are similar to the September 14, 2017 CT examination. There is been a small interval increase in the size of the right worse than left pleural effusions. ED physician has reviewed this radiology report. - Ultrasound No standard instances Ultrasound Interpretation Completed By: Radiologist - US reveals No sonographic evidence of deep vein thrombosis. ED Physician has reviewed this radiology report - EKG 0956 EKG Interpretation: An EKG at 0956 reveals sinus tachycardia 121 bpm, no ST and no ectopy Chest Pain Course/Dx - Course Course Of Treatment: DISCUSSED RESULTS WITH PATIENT. HR < 100 IN ED. FEELS WELL. NO CHEST PAIN. F/U PMD AND VASCULAR (HIS LEG DVT IS FOLLOWED BY VASCULAR) ; RETURN IF WORSE. - Diagnoses Provider Diagnoses: Tachycardia, Leg edema, left, Shortness of breath Discharge - Sign-Out/Discharge Documenting (check all that apply): Discharge - Discharge Plan Condition: Stable Disposition: HOME Patient Education Materials: Tachycardia (ED), Shortness of Breath (ED), Leg Edema (ED) Referrals: Liam Patel MD [Primary Care Provider] - Av Ybarra MD [Medical Doctor] - Additional Instructions: FOLLOW UP WITH YOUR DOCTOR. RETURN TO THE EMERGENCY DEPARTMENT FOR ANY WORSENING OF YOUR CONDITION OR QUESTIONS OR CONCERNS. - Billing Disposition and Condition Condition: STABLE Disposition: HOME The documentation as recorded by the Ashlie turner Abhishek accurately reflects the service I personally performed and the decisions made by me, Randy Campbell MD.
[2017-10-21 12:41] VITALS: BP 124/89
== END 2017-10-21 13:00 | disposition home or self-care (01) ==
LOC: ED 09:54
DX: R00.0 Tachycardia, unspecified (principal); R60.9 Edema, unspecified; R06.02 Shortness of breath; Z87.891 Personal history of nicotine dependence; E07.9 Disorder of thyroid, unspecified; K21.9 Gastro-esophageal reflux disease without esophagitis; E78.00 Pure hypercholesterolemia, unspecified; I10 Essential (primary) hypertension; I73.9 Peripheral vascular disease, unspecified; Z85.828 Personal history of other malignant neoplasm of skin; R62.50 Unspecified lack of expected normal physiological development in childhood
CPT/HCPCS: 36415; 71275; 80053; 81003; 81015; 82550; 82553; 83605; 83690; 83735; 83880; 84443; 84484; 85025; 85610; 85730; 86140; 93005; 96374; 99283; Q9967

== ENCOUNTER 2017-10-27 12:30 | Emergency (ER) | payer MEDICARE, MEDICAID ==
[2017-10-27 13:11] LABS: ABS Basophils 0.1 10^3/ul (0-0.2); ABS Eosinophils 0.2 10^3/ul (0-0.6); ABS Lymphocytes 1.7 10^3/ul (1.0-4.8); ABS Monocytes 0.8 10^3/ul (0-0.8); ABS Neutrophils 7.8 10^3/ul (1.5-7.7); ABS Nucleated RBC 0 10^3/ul; Eosinophil % 1.4 % (0-6); Hematocrit 41 % (42-52); Hemoglobin 13.8 g/dl (14.0-18.0); Mean Corpuscular HGB Conc 33 g/dl (31-36); Mean Corpuscular Hemoglobin 31 pg (27-31); Mean Corpuscular Volume 94 fL (80-94); Mean Platelet Volume 6.2 um3 (7.4-10.4); Nucleated Red Blood Cells % 0; Platelet Count 278 10^3/ul (150-450); Red Blood Count 4.39 10^6/ul (4.0-5.4); Red Cell Distribution Width 14 % (10.5-15); White Blood Count 10.5 10^3/ul (3.5-10.8)
[2017-10-27 13:28] LABS: EGFR Non-African American 67.8 (>60)
--- NOTE | 2017-10-27 13:35 | RAD ---
Indication: Chest pain. Single frontal view of the chest performed at 1316 hours was reviewed. Comparison is made with previous exam dated September 28, 2017. Cardiomegaly. Retrocardiac density is noted. This is consistent with a large hiatal hernia. Bibasilar atelectasis is noted. Skinfold is noted in the left hemithorax. IMPRESSION: RETROCARDIAC DENSITY WITH BIBASILAR ATELECTASIS.
[2017-10-27] MEDS ORDERED: NS 0.9% 1000 ML* 1,000 ML IV ONE (13:50)
[2017-10-27] MEDS ORDERED: LORazepam INJ* 2 MG/ML 1 ML VIAL IV ONE (16:38)
[2017-10-27] MEDS ORDERED: Pantoprazole IV* 40 MG IV ONE (16:38)
[2017-10-27 18:18] LABS: Urine Appearance Clear; Urine Blood 2+ (Negative); Urine Color Yellow; Urine Ketones Negative (Negative); Urine Protein Negative (Negative); Urine Specific Gravity 1.009 (1.010-1.030); Urine Urobilinogen Negative (Negative)
[2017-10-27 19:47] VITALS: BP 142/86
--- NOTE | 2017-10-27 20:01 | ED ---
Luna Talbert Thomas, scribed for Dorian Garcia MD on 10/27/17 at 1254 . Complex/Multi-Sys Presentation - HPI Summary HPI Summary: The patient is a 71 year old male who presents today with episodes of chest pain , epigastric pain, palpitations, and feeling dizzy. 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 However, the patient tells me that he thinks his current symptoms are from the Cardizem and he wants to be taken off of the Cardizem. - History Of Current Complaint Chief Complaint: EDChestPainROMI Time Seen by Provider: 10/27/17 12:33 Hx Obtained From: Patient Onset/Duration: Still Present Timing: Constant Severity Currently: Moderate Severity Initially: Moderate Aggravating Factor(s): Patient suspects Cardizem Alleviating Factor(s): None Associated Signs And Symptoms: Positive: Other - CP, epigastric pain, dizziness , palpitations - Allergies/Home Medications Allergies/Adverse Reactions: Allergies Allergy/AdvReac Type Severity Reaction Status Date / Time codeine Allergy Unknown Verified 10/27/17 12:35 Reaction Details ibuprofen Allergy Unknown Verified 10/27/17 12:35 Reaction Details morphine Allergy Unknown Verified 10/27/17 12:35 Reaction Details rosuvastatin [From Crestor] Allergy Unknown Verified 10/27/17 12:35 Reaction Details Home Medications: Home Medications Acetaminophen [Acetaminophen Extra Strength] 500 mg PO Q4H PRN 10/27/17 [ History Confirmed 10/27/17] Aspirin TAB* [Aspirin 325 MG TAB*] 325 mg PO TID 10/27/17 [History Confirmed ] Cyclobenzaprine TAB* [Flexeril 10 MG TAB*] 10 mg PO BID PRN 10/27/17 [History Confirmed 10/27/17] Diltiazem TAB* [Cardizem 30 MG Tab*] 30 mg PO TID 10/27/17 [History Confirmed ] Ferrous Sulfate TAB* 325 mg PO BID 10/27/17 [History Confirmed 10/27/17] Furosemide TAB* [Lasix TAB*] 40 mg PO DAILY 10/27/17 [History Confirmed 10/27/17 ] Levothyroxine TAB* [Synthroid TAB*] 25 mcg PO DAILY 10/27/17 [History Confirmed 10/27/17] Lisinopril TAB* [Prinivil TAB*] 10 mg PO DAILY 10/27/17 [History Confirmed 10/27] Multivitamins/Minerals TAB* [Theragran/minerals TAB*] 1 tab PO BID 10/27/17 [ History Confirmed 10/27/17] Omeprazole CAP* [Prilosec CAP* 20 MG] 40 mg PO BID 10/27/17 [History Confirmed 10/27/17] Ondansetron TAB* [Zofran 4 MG Tab*] 4 mg PO Q6H PRN 10/27/17 [History Confirmed 10/27/17] Pentoxifylline CR TAB* [TRENtal CR TAB*] 400 mg PO TID 10/27/17 [History Confirmed 10/27/17] Polyethylene Glycol 3350* [Miralax*] 17 gm PO DAILY 10/27/17 [History Confirmed 10/27/17] Rivaroxaban TAB(*) [Xarelto 15 mg(*)] 15 mg PO DAILY 10/27/17 [History Confirmed 10/27/17] Sucralfate TAB* [Carafate*] 1 gm PO TID 10/27/17 [History Confirmed 10/27/17] Tamsulosin CAP* [Flomax CAP*] 0.4 mg PO DAILY 10/27/17 [History Confirmed ] Thioridazine TAB* [Mellaril*] 25 mg PO TID 10/27/17 [History Confirmed 10/27/17] busPIRone TAB* [Buspar TAB *] 15 mg PO TID 10/27/17 [History Confirmed 10/27/17] rOPINIRole TAB* [Requip*] 9 mg PO TID 10/27/17 [History Confirmed 10/27/17] traMADol TAB* [Ultram*] 25 mg PO Q8H PRN 10/27/17 [History Confirmed 10/27/17] PMH/Surg Hx/FS Hx/Imm Hx Endocrine/Hematology History: Reports: Hx Thyroid Disease Denies: Hx Diabetes Cardiovascular History: Reports: Hx Angina, Hx Hypercholesterolemia, Hx Hypertension, Hx Peripheral Vascular Disease, Other Cardiovascular Problems/ Disorders - CHRONIC TACHYCARDIA Denies: Hx Angioplasty, Hx Congestive Heart Failure, Hx Embolism, Hx Pacemaker/ICD Respiratory History: Reports: Other Respiratory Problems/Disorders - chronic cough Denies: Hx Asthma, Hx Chronic Obstructive Pulmonary Disease (COPD), Hx Lung Cancer, Hx Pleural Effusion, Hx Pulmonary Edema, Hx Pulmonary Embolism, Hx Seasonal Allergies, Hx Sleep Apnea GI History: Reports: Hx Gastroesophageal Reflux Disease, Hx Hiatal Hernia, Other GI Disorders Denies: Hx Irritable Bowel History: Reports: Hx Benign Prostatic Hyperplasia Denies: Hx Dialysis, Hx Kidney Infection, Hx Kidney Stones, Hx Renal Disease Musculoskeletal History: Reports: Hx Arthritis, Hx Back Problems Sensory History: Reports: Hx Contacts or Glasses, Hx Eye Injury Denies: Hx Cataracts, Hx Glaucoma, Hx Hearing Aid Opthamlomology History: Reports: Hx Contacts or Glasses, Hx Eye Injury Denies: Hx Cataracts, Hx Glaucoma Neurological History: Reports: Hx Developmental Delay, Hx Headaches, Hx Transient Ischemic Attacks (TIA), Other Neuro Impairments/Disorders - speech impediment Denies: Hx Migraine, Hx Seizures, Hx Spinal Cord Injury Psychiatric History: Reports: Hx Anxiety, Other Psychiatric Issues/Disorders Denies: Hx Depression, Hx Panic Disorder - Cancer History Cancer Type, Location and Year: Skin cancer 1999 - Surgical History Surgery Procedure, Year, and Place: None - Immunization History Date of Tetanus Vaccine: up to date Date of Influenza Vaccine: utd Infectious Disease History: No Infectious Disease History: Denies: Traveled Outside the [place] in Last 30 Days - Family History Known Family History: Positive: Cardiac Disease, Hypertension Negative: Diabetes - Social History Alcohol Use: None Hx Substance Use: No Substance Use Type: Reports: None Hx Tobacco Use: Yes Smoking Status (MU): Former Smoker Type: Cigarettes Have You Smoked in the Last Year: No Review of Systems Positive: Palpitations, Chest Pain Positive: Other - Epigastric pain Neurological: Other - Dizziness All Other Systems Reviewed And Are Negative: Yes Physical Exam - Summary Physical Exam Summary: Appearance: The patient is well-nourished in no acute distress and in no acute pain. Skin: The skin is warm and dry and skin color reflects adequate perfusion. HEENT: The head is normocephalic and atraumatic. The pupils are equal and reactive. The conjunctivae are clear and without drainage. Nares are patent and without drainage. Mouth reveals moist mucous membranes and the throat is without erythema and exudate. The external ears are intact. The ear canals are patent and without drainage. The tympanic membranes are intact. Neck: the neck is supple with full range of motion and non-tender. There are no carotid bruits. There is no neck vein distension. Respiratory: Chest is non-tender. Lungs are clear to auscultation and breath sounds are symmetrical and equal. Cardiovascular: Heart is regularly tachycardic. There is no murmur or rub auscultated. There is no peripheral edema and pulses are symmetrical and equal. Abdomen: The abdomen is soft. He has epigastric tenderness. There are normal bowel sounds heard in all four quadrants and there is no organomegaly palpated. Musculoskeletal: There is no back tenderness noted. Extremities are non-tender with full range of motion. There is good capillary refill. There is no peripheral edema or calf tenderness elicited. Neurological: Patient is alert and oriented to person, place and time. The patient has symmetrical motor strength in all four extremities. Cranial nerves are grossly intact. Deep tendon reflexes are symmetrical and equal in all four extremities. Psychiatric: The patient has an appropriate affect and does not exhibit any anxiety or depression. Triage Information Reviewed: Yes Vital Signs On Initial Exam: Initial Vitals Temp Pulse Resp BP Pulse Ox 98.2 F 116 18 117/74 91 10/27/17 12:32 10/27/17 12:32 10/27/17 12:32 10/27/17 12:32 10/27/17 12:32 Vital Signs Reviewed: Yes Diagnostics - Vital Signs Vital Signs Temp Pulse Resp BP Pulse Ox 10/27/17 12:32 98.2 F 116 18 117/74 91 - Laboratory Lab Results: Lab Results 10/27/17 10/27/17 10/27/17 Range/Units 12:57 12:57 12:57 WBC 10.5 (3.5-10.8) 10^3/ul RBC 4.39 (4.0-5.4) 10^6/ul Hgb 13.8 L (14.0-18.0) g/dl Hct 41 L (42-52) % MCV 94 (80-94) fL MCH 31 (27-31) pg MCHC 33 (31-36) g/dl RDW 14 (10.5-15) % Plt Count 278 (150-450) 10^3/ul MPV 6.2 L (7.4-10.4) um3 Neut % (Auto) 74.3 (38-83) % Lymph % (Auto) 16.0 L (25-47) % [place] % (Auto) 7.4 H (0-7) % Eos % (Auto) 1.4 (0-6) % Baso % (Auto) 0.9 (0-2) % Absolute Neuts (auto) 7.8 H (1.5-7.7) 10^3/ul Absolute Lymphs (auto) 1.7 (1.0-4.8) 10^3/ul Absolute Monos (auto) 0.8 (0-0.8) 10^3/ul Absolute Eos (auto) 0.2 (0-0.6) 10^3/ul Absolute Basos (auto) 0.1 (0-0.2) 10^3/ul Absolute Nucleated RBC 0 10^3/ul Nucleated RBC % 0 Sodium 137 L (139-145) mmol/L Potassium 4.2 (3.5-5.0) mmol/L Chloride 103 (101-111) mmol/L Carbon Dioxide 25 (22-32) mmol/L Anion Gap 9 (2-11) mmol/L BUN 18 (6-24) mg/dL Creatinine 1.08 (0.67-1.17) mg/dL Est GFR ( Amer) 87.2 (>60) Est GFR (Non-Af Amer) 67.8 (>60) BUN/Creatinine Ratio 16.7 (8-20) Glucose 108 H (70-100) mg/dL Lactic Acid 0.9 (0.5-2.0) mmol/L Calcium 9.2 (8.6-10.3) mg/dL Total Bilirubin 0.30 (0.2-1.0) mg/dL AST 19 (13-39) U/L ALT 18 (7-52) U/L Alkaline Phosphatase 92 (34-104) U/L Troponin I 0.01 (<0.04) ng/mL C-Reactive Protein 4.32 (< 5.00) mg/L Total Protein 6.6 (6.4-8.9) g/dL Albumin 4.0 (3.2-5.2) g/dL Globulin 2.6 (2-4) g/dL Albumin/Globulin Ratio 1.5 (1-3) Lipase 25 (11.0-82.0) U/L Urine Color Urine Appearance Urine pH (5-9) Ur Specific [place] (1.010-1.030) Urine Protein (Negative) Urine Ketones (Negative) Urine Blood (Negative) Urine Nitrate (Negative) Urine Bilirubin (Negative) Urine Urobilinogen (Negative) Ur Leukocyte Esterase (Negative) Urine WBC (Auto) (Absent) Urine RBC (Auto) (Absent) Ur Squamous Epith Cells (Absent) Urine Bacteria (Absent) Hyaline Casts (Absent) Urine Glucose (Negative) Urine Ascorbic Acid (Negative) 10/27/17 10/27/17 Range/Units 16:49 17:47 WBC (3.5-10.8) 10^3/ul RBC (4.0-5.4) 10^6/ul Hgb (14.0-18.0) g/dl Hct (42-52) % MCV (80-94) fL MCH (27-31) pg MCHC (31-36) g/dl RDW (10.5-15) % Plt Count (150-450) 10^3/ul MPV (7.4-10.4) um3 Neut % (Auto) (38-83) % Lymph % (Auto) (25-47) % [place] % (Auto) (0-7) % Eos % (Auto) (0-6) % Baso % (Auto) (0-2) % Absolute Neuts (auto) (1.5-7.7) 10^3/ul Absolute Lymphs (auto) (1.0-4.8) 10^3/ul Absolute Monos (auto) (0-0.8) 10^3/ul Absolute Eos (auto) (0-0.6) 10^3/ul Absolute Basos (auto) (0-0.2) 10^3/ul Absolute Nucleated RBC 10^3/ul Nucleated RBC % Sodium (139-145) mmol/L Potassium (3.5-5.0) mmol/L Chloride (101-111) mmol/L Carbon Dioxide (22-32) mmol/L Anion Gap (2-11) mmol/L BUN (6-24) mg/dL Creatinine (0.67-1.17) mg/dL Est GFR ( Amer) (>60) Est GFR (Non-Af Amer) (>60) BUN/Creatinine Ratio (8-20) Glucose (70-100) mg/dL Lactic Acid (0.5-2.0) mmol/L Calcium (8.6-10.3) mg/dL Total Bilirubin (0.2-1.0) mg/dL AST (13-39) U/L ALT (7-52) U/L Alkaline Phosphatase (34-104) U/L Troponin I 0.01 (<0.04) ng/mL C-Reactive Protein (< 5.00) mg/L Total Protein (6.4-8.9) g/dL Albumin (3.2-5.2) g/dL Globulin (2-4) g/dL Albumin/Globulin Ratio (1-3) Lipase (11.0-82.0) U/L Urine Color Yellow Urine Appearance Clear Urine pH 6.0 (5-9) Ur Specific [place] 1.009 L (1.010-1.030) Urine Protein Negative (Negative) Urine Ketones Negative (Negative) Urine Blood 2+ A (Negative) Urine Nitrate Negative (Negative) Urine Bilirubin Negative (Negative) Urine Urobilinogen Negative (Negative) Ur Leukocyte Esterase Negative (Negative) Urine WBC (Auto) Trace(0-5/hpf) (Absent) Urine RBC (Auto) 3+(>10/hpf) A (Absent) Ur Squamous Epith Cells Present A (Absent) Urine Bacteria Absent (Absent) Hyaline Casts Present A (Absent) Urine Glucose Negative (Negative) Urine Ascorbic Acid * A (Negative) Result Diagrams: 10/27/17 12:57 10/27/17 12:57 Lab Statement: Any lab studies that have been ordered have been reviewed, and results considered in the medical decision making process. - Radiology CXR Xray Interpretation: No Acute Changes - IMPRESSION: RETROCARDIAC DENSITY WITH BIBASILAR ATELECTASIS. Dr. Garcia has reviewed this report. Radiology Interpretation Completed By: Radiologist - EKG 13:09 Cardiac Rate: Tachycardia EKG Rhythm: Sinus Tachycardia - at 102 BPM 17:27 Cardiac Rate: Tachycardia EKG Rhythm: Sinus Tachycardia - at 102 BPM Complex Multi-Symp Course/Dx Course Of Treatment: Reviewing Mr. Gasca's previous records I can see that he normally has a mildly elevated sinus tachycardia which he has here today also. He came in with a C/O chest pain but it seems as though he just wants permission to stop his cardizem that was recently started. He R/O'd with troponins and ECGs and I suggested he stop the cardizem as it doesn't seem to be working anyway. He also C/O'd epigastric pain that improved with pantoprazole. - Diagnoses Provider Diagnoses: Epigastric pain, Tachycardia Discharge - Sign-Out/Discharge Documenting (check all that apply): Discharge - Discharge Plan Condition: Stable Disposition: HOME Patient Education Materials: Epigastric Pain (ED), Tachycardia (ED) Referrals: Annamaria Moreno MD [Medical Doctor] - 10/29/17 Additional Instructions: Hold the Cardizem until you are seen by Dr. Moreno. Follow up with Dr. Moreno on October 29. - Billing Disposition and Condition Condition: STABLE Disposition: HOME The documentation as recorded by the Luna turner Thomas accurately reflects the service I personally performed and the decisions made by me, Dorian Garcia MD.
== END 2017-10-27 19:45 | disposition home or self-care (01) ==
LOC: ED 12:30
DX: R00.0 Tachycardia, unspecified (principal); R10.13 Epigastric pain; Z85.828 Personal history of other malignant neoplasm of skin; Z87.891 Personal history of nicotine dependence; E07.9 Disorder of thyroid, unspecified; E78.00 Pure hypercholesterolemia, unspecified; I10 Essential (primary) hypertension; I73.9 Peripheral vascular disease, unspecified; K21.9 Gastro-esophageal reflux disease without esophagitis; R62.50 Unspecified lack of expected normal physiological development in childhood; Z86.73 Personal history of transient ischemic attack (TIA), and cerebral infarction without residual deficits; Z79.82 Long term (current) use of aspirin; F41.9 Anxiety disorder, unspecified
CPT/HCPCS: 36415; 71045; 80053; 81003; 81015; 83605; 83690; 84484; 85025; 86140; 87086; 93005; 96360; 96374; 96375; 99284; J2060

== ENCOUNTER 2017-10-28 18:24 | Emergency (ER) | payer MEDICARE, MEDICAID ==
[2017-10-28 19:21] LABS: ABS Basophils 0.1 10^3/ul (0-0.2); ABS Eosinophils 0.2 10^3/ul (0-0.6); ABS Lymphocytes 1.4 10^3/ul (1.0-4.8); ABS Monocytes 0.7 10^3/ul (0-0.8); ABS Neutrophils 6.7 10^3/ul (1.5-7.7); ABS Nucleated RBC 0 10^3/ul; Eosinophil % 1.8 % (0-6); Hematocrit 42 % (42-52); Lymphocyte % 15.2 % (25-47); Mean Corpuscular HGB Conc 33 g/dl (31-36); Mean Corpuscular Hemoglobin 31 pg (27-31); Mean Corpuscular Volume 95 fL (80-94); Mean Platelet Volume 6.3 um3 (7.4-10.4); Nucleated Red Blood Cells % 0; Platelet Count 271 10^3/ul (150-450); Red Blood Count 4.47 10^6/ul (4.0-5.4); Red Cell Distribution Width 14 % (10.5-15); White Blood Count 9.1 10^3/ul (3.5-10.8)
[2017-10-28 19:39] LABS: EGFR Non-African American 63.1 (>60)
[2017-10-28] MEDS ORDERED: Iohexol 300* (CONTRAST) 10 ML SDV IV ONE (19:55)
--- NOTE | 2017-10-28 20:28 | ED ---
Abdominal Pain/Male - HPI Summary HPI Summary: Complains of epigastric abdominal pain, nausea, SOB with abdo pain spikes. History of same x months, getting worse in the past 2 days. Patient states he believes it is his hiatal hernia which he has been aware of for years. Denies fever, cough, sore throat, CP, V/D, change in BM. Denies regular EtOH, illegal drugs, smoking. Medical history as HTN, hypothyroid, GERD. Abdominal/pelvic surgical history is none. Patient on xarelto x 1.5 weeks for blood clot in left leg. States blood clot has resolved, but primary physician does not wish to take him off Xarelto yet. Patient states he also has a history of tachycardia, normally takes Cardizem. Patient was seen here last night for chest pain, epigastric pain, palpitations. Cardiac rule out was negative. Patient also stated yesterday he wanted to stop taking Cardizem for chronic low- grade tachycardia. Stopped taking Cardizem today. States provider yesterday told him that he could stop Cardizem. Provider note confirms this, stating that it did not appear to be working. - History of Current Complaint Chief Complaint: EDAbdPain Stated Complaint: CHEST DISCOMFORT Time Seen by Provider: 10/28/17 18:59 Hx Obtained From: Patient Onset/Duration: Gradual Onset Timing: Constant Severity Initially: Moderate Severity Currently: Moderate Pain Intensity: 7 Pain Scale Used: 0-10 Numeric Location: Epigastric Radiates: No Character: Sharp Alleviating Factor(s): Nothing Associated Signs And Symptoms: Positive: Negative - Risk Factors Cardiac Risk Factors: Hypertension - Allergies/Home Medications Allergies/Adverse Reactions: Allergies Allergy/AdvReac Type Severity Reaction Status Date / Time codeine Allergy Unknown Verified 10/27/17 12:35 Reaction Details ibuprofen Allergy Unknown Verified 10/27/17 12:35 Reaction Details morphine Allergy Unknown Verified 10/27/17 12:35 Reaction Details rosuvastatin [From Crestor] Allergy Unknown Verified 10/27/17 12:35 Reaction Details PMH/Surg Hx/FS Hx/Imm Hx Endocrine/Hematology History: Reports: Hx Thyroid Disease Denies: Hx Diabetes Cardiovascular History: Reports: Hx Angina, Hx Hypercholesterolemia, Hx Hypertension, Hx Peripheral Vascular Disease, Other Cardiovascular Problems/ Disorders - CHRONIC TACHYCARDIA Denies: Hx Angioplasty, Hx Congestive Heart Failure, Hx Embolism, Hx Pacemaker/ICD Respiratory History: Reports: Other Respiratory Problems/Disorders - chronic cough Denies: Hx Asthma, Hx Chronic Obstructive Pulmonary Disease (COPD), Hx Lung Cancer, Hx Pleural Effusion, Hx Pulmonary Edema, Hx Pulmonary Embolism, Hx Seasonal Allergies, Hx Sleep Apnea GI History: Reports: Hx Gastroesophageal Reflux Disease, Hx Hiatal Hernia, Other GI Disorders Denies: Hx Irritable Bowel History: Reports: Hx Benign Prostatic Hyperplasia Denies: Hx Dialysis, Hx Kidney Infection, Hx Kidney Stones, Hx Renal Disease Musculoskeletal History: Reports: Hx Arthritis, Hx Back Problems Sensory History: Reports: Hx Contacts or Glasses, Hx Eye Injury Denies: Hx Cataracts, Hx Glaucoma, Hx Hearing Aid Opthamlomology History: Reports: Hx Contacts or Glasses, Hx Eye Injury Denies: Hx Cataracts, Hx Glaucoma Neurological History: Reports: Hx Developmental Delay, Hx Headaches, Hx Transient Ischemic Attacks (TIA), Other Neuro Impairments/Disorders - speech impediment Denies: Hx Migraine, Hx Seizures, Hx Spinal Cord Injury Psychiatric History: Reports: Hx Anxiety, Other Psychiatric Issues/Disorders Denies: Hx Depression, Hx Panic Disorder - Cancer History Cancer Type, Location and Year: Skin cancer 1999 - Surgical History Surgery Procedure, Year, and Place: None - Immunization History Date of Tetanus Vaccine: up to date Date of Influenza Vaccine: utd Infectious Disease History: No Infectious Disease History: Denies: Traveled Outside the [place] in Last 30 Days - Family History Known Family History: Positive: Cardiac Disease, Hypertension Negative: Diabetes - Social History Alcohol Use: None Hx Substance Use: No Substance Use Type: Reports: None Hx Tobacco Use: Yes Smoking Status (MU): Former Smoker Type: Cigarettes Have You Smoked in the Last Year: No Review of Systems Constitutional: Negative Eyes: Negative ENT: Negative Cardiovascular: Negative Positive: Shortness Of Breath Positive: Abdominal Pain, Nausea Positive: hematuria - patient states he has been noticing blood in urine, hasn' t appointment with urology pending Musculoskeletal: Negative Skin: Negative Neurological: Negative Psychological: Normal All Other Systems Reviewed And Are Negative: Yes Physical Exam Triage Information Reviewed: Yes Vital Signs On Initial Exam: Initial Vitals Temp Pulse Resp BP Pulse Ox 98.1 F 125 18 160/88 94 10/28/17 18:33 10/28/17 18:33 10/28/17 18:33 10/28/17 18:33 10/28/17 18:33 Vital Signs Reviewed: Yes Appearance: Positive: Well-Appearing Skin: Positive: Warm Head/Face: Positive: Normal Head/Face Inspection Eyes: Positive: Normal Neck: Positive: Supple Respiratory/Lung Sounds: Positive: Clear to Auscultation Cardiovascular: Positive: Tachycardia Abdomen Description: Positive: Soft, Other: - Epigastric tenderness. Negative: [place] Tenderness Musculoskeletal: Positive: Normal Neurological: Positive: Normal Psychiatric: Positive: Normal - [place] Coma Scale Best Eye Response: 4 - Spontaneous Best Motor Response: 6 - Obeys Commands Best Verbal Response: 5 - Oriented Coma Scale Total: 15 Diagnostics - Vital Signs Vital Signs Temp Pulse Resp BP Pulse Ox 10/28/17 18:33 98.1 F 125 18 160/88 94 - Laboratory Lab Results: Lab Results 10/28/17 10/28/17 Range/Units 19:07 19:07 WBC 9.1 (3.5-10.8) 10^3/ul RBC 4.47 (4.0-5.4) 10^6/ul Hgb 14.0 (14.0-18.0) g/dl Hct 42 (42-52) % MCV 95 H (80-94) fL MCH 31 (27-31) pg MCHC 33 (31-36) g/dl RDW 14 (10.5-15) % Plt Count 271 (150-450) 10^3/ul MPV 6.3 L (7.4-10.4) um3 Neut % (Auto) 74.0 (38-83) % Lymph % (Auto) 15.2 L (25-47) % [place] % (Auto) 8.1 H (0-7) % Eos % (Auto) 1.8 (0-6) % Baso % (Auto) 0.9 (0-2) % Absolute Neuts (auto) 6.7 (1.5-7.7) 10^3/ul Absolute Lymphs (auto) 1.4 (1.0-4.8) 10^3/ul Absolute Monos (auto) 0.7 (0-0.8) 10^3/ul Absolute Eos (auto) 0.2 (0-0.6) 10^3/ul Absolute Basos (auto) 0.1 (0-0.2) 10^3/ul Absolute Nucleated RBC 0 10^3/ul Nucleated RBC % 0 Sodium 139 (139-145) mmol/L Potassium 3.6 (3.5-5.0) mmol/L Chloride 103 (101-111) mmol/L Carbon Dioxide 27 (22-32) mmol/L Anion Gap 9 (2-11) mmol/L BUN 13 (6-24) mg/dL Creatinine 1.15 (0.67-1.17) mg/dL Est GFR ( Amer) 81.1 (>60) Est GFR (Non-Af Amer) 63.1 (>60) BUN/Creatinine Ratio 11.3 (8-20) Glucose 126 H (70-100) mg/dL Calcium 9.3 (8.6-10.3) mg/dL Total Bilirubin 0.30 (0.2-1.0) mg/dL AST 16 (13-39) U/L ALT 17 (7-52) U/L Alkaline Phosphatase 79 (34-104) U/L Total Protein 6.5 (6.4-8.9) g/dL Albumin 3.7 (3.2-5.2) g/dL Globulin 2.8 (2-4) g/dL Albumin/Globulin Ratio 1.3 (1-3) Lipase 32 (11.0-82.0) U/L Result Diagrams: 10/28/17 19:07 10/28/17 19:07 Lab Statement: Any lab studies that have been ordered have been reviewed, and results considered in the medical decision making process. - Radiology ches t xray Xray Interpretation: No Acute Changes Radiology Interpretation Completed By: Radiologist - CT ct ab/pel CT Interpretation: Positive (See Comments) - colitis, hiatal hernia CT Interpretation Completed By: Radiologist - EKG 1 Cardiac Rate: Tachycardia EKG Rhythm: Sinus Tachycardia ST Segment: Normal Ectopy: None Abdominal Pain Fem Course/Dx - Course Course Of Treatment: Vital signs stable other than chronic tachycardia. Pt does not want to take cardizem for his tachycradia. Will be advised to follow up with primary care regarding use of cardizem for control of same. Chest x-ray unremarkable. CT abdomen/pelvis indicates colitis. Patient states he does not want narcotic pain medication, as he is allergic to codeine and morphine. - Diagnoses Provider Diagnoses: Colitis Discharge - Sign-Out/Discharge Documenting (check all that apply): Discharge - Discharge Plan Condition: Stable Disposition: HOME Prescriptions: Ciprofloxacin HCl [Cipro] 500 mg PO BID 10 Days #20 tablet metroNIDAZOLE [Flagyl 500 MG TAB] 500 mg PO TID 10 Days #30 tab Ondansetron ODT TAB* [Zofran 4 MG Odt TAB*] 4 mg PO Q8H PRN 4 Days #14 tab.odt PRN Reason: Nausea Patient Education Materials: Colitis (ED) Referrals: Liam Patel MD [Primary Care Provider] - Additional Instructions: Follow-up with primary care. Return immediately for any worsening symptoms - Billing Disposition and Condition Condition: STABLE Disposition: HOME
--- NOTE | 2017-10-28 20:44 | RAD ---
Indication: Epigastric, retrosternal chest pain. Single frontal view of the chest performed at 1950 hours was reviewed. Comparison is made with previous exam dated October 27, 2017. Cardiomegaly is noted. Hiatal hernia is noted. The lung skaggs are clear. Likely healing rib fracture is noted in the left eighth rib. IMPRESSION: NO PNEUMONIA. LARGE HIATAL HERNIA.
--- NOTE | 2017-10-28 21:57 | RAD ---
Indication: Epigastric pain. Contrast: Administered 118.1 ml of OMNIPAQUE 300 mg/ml CT of the abdomen and pelvis was performed after IV contrast administration. No oral contrast was given. Coronal and sagittal reconstructed images were obtained. Comparison is made with previous exam dated July 13, 2017.. Lung bases demonstrate no pleural fluid. Bibasilar atelectasis is noted. There is a large hiatal hernia present. Liver is normal in size. No focal lesions or intrahepatic ductal dilatation noted. Gallbladder demonstrates no gallstones, pericholecystic fluid or wall thickening. The spleen is normal in size. Pancreas demonstrates no mass or pancreatic ductal dilatation. The gallbladder is partially contracted. No adrenal masses are noted. The kidneys demonstrate symmetric nephrograms without hydronephrosis. Calculi are noted in the lower pole of the right kidney. Calcified cyst is noted in the lower pole of the right kidney. Other smaller cysts are noted. No retroperitoneal lymphadenopathy is noted. No dilated loops of bowel are noted. CT of the pelvis demonstrates enlarged prostate. Urinary bladder is unremarkable. Diverticulosis without definite evidence of diverticulitis is noted. No hernias are noted. There is diffuse wall thickening of the ascending colon and proximal transverse colon. Focal colitis should be considered. The descending colon is grossly unremarkable although extensive diverticulosis is noted of the sigmoid colon. IMPRESSION: Mucosal thickening of the ascending colon, hepatic flexure and proximal transverse colon. Underlying colitis should be considered. There is a large hiatal hernia present. Small pleural effusions are noted bilaterally. Extensive diverticulosis of the descending and sigmoid colon is noted. There is an enlarged prostate. Calcified cyst in the right kidney unchanged from prior exam. Multiple nonobstructing calculi are noted in the right kidney.
[2017-10-28] MEDS ORDERED: Ciprofloxacin TAB* 500 MG PO ONE (22:13)
[2017-10-28] MEDS ORDERED: metroNIDAZOLE TAB* 250 MG PO ONE (22:14)
[2017-10-28 22:50] VITALS: BP 156/95
== END 2017-10-28 23:40 | disposition home or self-care (01) ==
LOC: ED 18:24
DX: K52.9 Noninfective gastroenteritis and colitis, unspecified (principal); R00.0 Tachycardia, unspecified; E78.00 Pure hypercholesterolemia, unspecified; I10 Essential (primary) hypertension; I73.9 Peripheral vascular disease, unspecified; Z85.828 Personal history of other malignant neoplasm of skin; K21.9 Gastro-esophageal reflux disease without esophagitis; N40.0 Benign prostatic hyperplasia without lower urinary tract symptoms; R62.50 Unspecified lack of expected normal physiological development in childhood; Z87.891 Personal history of nicotine dependence; Z88.5 Allergy status to narcotic agent; K44.9 Diaphragmatic hernia without obstruction or gangrene
CPT/HCPCS: 36415; 71045; 74177; 80053; 83690; 84484; 85025; 93005; 96374; 99284; A9270-GY; Q9967

== ENCOUNTER 2017-10-30 12:36 | Emergency (ER) | payer MEDICARE, MEDICAID ==
[2017-10-30 15:04] LABS: ABS Basophils 0 10^3/ul (0-0.2); ABS Eosinophils 0.1 10^3/ul (0-0.6); ABS Lymphocytes 1.6 10^3/ul (1.0-4.8); ABS Monocytes 0.7 10^3/ul (0-0.8); ABS Neutrophils 6.1 10^3/ul (1.5-7.7); ABS Nucleated RBC 0 10^3/ul; Eosinophil % 1.5 % (0-6); Hematocrit 41 % (42-52); Hemoglobin 13.8 g/dl (14.0-18.0); Lymphocyte % 18.3 % (25-47); Mean Corpuscular HGB Conc 34 g/dl (31-36); Mean Corpuscular Hemoglobin 31 pg (27-31); Mean Corpuscular Volume 93 fL (80-94); Mean Platelet Volume 6.3 um3 (7.4-10.4); Nucleated Red Blood Cells % 0; Platelet Count 260 10^3/ul (150-450); Red Blood Count 4.38 10^6/ul (4.0-5.4); Red Cell Distribution Width 14 % (10.5-15); White Blood Count 8.5 10^3/ul (3.5-10.8)
[2017-10-30 15:16] LABS: INR 0.98 (0.77-1.02)
[2017-10-30 15:28] LABS: EGFR Non-African American 61.8 (>60)
[2017-10-30] MEDS ORDERED: LORazepam INJ* 2 MG/ML 1 ML VIAL IV ONE (16:06)
[2017-10-30] MEDS ORDERED: LORazepam TAB(*) 1 MG PO ONE (16:18)
--- NOTE | 2017-10-30 18:14 | ED ---
Luna Talbert Thomas, scribed for Dorian Garcia MD on 10/30/17 at 1433 . Complex/Multi-Sys Presentation - HPI Summary HPI Summary: The patent is a 71 year old male presenting with epigastric pain, vomiting, and bloody stools. He was recently seen at [facility] a few days ago and discharged with a diagnosis of colitis. The patient reports that his prescribed medications have not alleviated his symptoms. - History Of Current Complaint Chief Complaint: EDAbdPain Time Seen by Provider: 10/30/17 14:09 Hx Obtained From: Patient Onset/Duration: Still Present Location: Pain At: - epigastrium Aggravating Factor(s): None Alleviating Factor(s): Prescribed medications did not alleviate Associated Signs And Symptoms: Positive: Other - Allergies/Home Medications Allergies/Adverse Reactions: Allergies Allergy/AdvReac Type Severity Reaction Status Date / Time codeine Allergy Unknown Verified 10/30/17 12:42 Reaction Details ibuprofen Allergy Unknown Verified 10/30/17 12:42 Reaction Details morphine Allergy Unknown Verified 10/30/17 12:42 Reaction Details rosuvastatin [From Crestor] Allergy Unknown Verified 10/30/17 12:42 Reaction Details PMH/Surg Hx/FS Hx/Imm Hx Endocrine/Hematology History: Reports: Hx Thyroid Disease Denies: Hx Diabetes Cardiovascular History: Reports: Hx Angina, Hx Hypercholesterolemia, Hx Hypertension, Hx Peripheral Vascular Disease, Other Cardiovascular Problems/ Disorders - CHRONIC TACHYCARDIA Denies: Hx Angioplasty, Hx Congestive Heart Failure, Hx Embolism, Hx Pacemaker/ICD Respiratory History: Reports: Other Respiratory Problems/Disorders - chronic cough Denies: Hx Asthma, Hx Chronic Obstructive Pulmonary Disease (COPD), Hx Lung Cancer, Hx Pleural Effusion, Hx Pulmonary Edema, Hx Pulmonary Embolism, Hx Seasonal Allergies, Hx Sleep Apnea GI History: Reports: Hx Gastroesophageal Reflux Disease, Hx Hiatal Hernia, Other GI Disorders Denies: Hx Irritable Bowel History: Reports: Hx Benign Prostatic Hyperplasia Denies: Hx Dialysis, Hx Kidney Infection, Hx Kidney Stones, Hx Renal Disease Musculoskeletal History: Reports: Hx Arthritis, Hx Back Problems Sensory History: Reports: Hx Contacts or Glasses, Hx Eye Injury Denies: Hx Cataracts, Hx Glaucoma, Hx Hearing Aid Opthamlomology History: Reports: Hx Contacts or Glasses, Hx Eye Injury Denies: Hx Cataracts, Hx Glaucoma Neurological History: Reports: Hx Developmental Delay, Hx Headaches, Hx Transient Ischemic Attacks (TIA), Other Neuro Impairments/Disorders - speech impediment Denies: Hx Migraine, Hx Seizures, Hx Spinal Cord Injury Psychiatric History: Reports: Hx Anxiety, Other Psychiatric Issues/Disorders Denies: Hx Depression, Hx Panic Disorder - Cancer History Cancer Type, Location and Year: Skin cancer 1999 - Surgical History Surgery Procedure, Year, and Place: None - Immunization History Date of Tetanus Vaccine: up to date Date of Influenza Vaccine: utd Infectious Disease History: No Infectious Disease History: Denies: Traveled Outside the [place] in Last 30 Days - Family History Known Family History: Positive: Cardiac Disease, Hypertension Negative: Diabetes - Social History Alcohol Use: None Hx Substance Use: No Substance Use Type: Reports: None Hx Tobacco Use: Yes Smoking Status (MU): Former Smoker Type: Cigarettes Have You Smoked in the Last Year: No Review of Systems Negative: Fever Positive: Abdominal Pain, Vomiting, Other - Bloody stools All Other Systems Reviewed And Are Negative: Yes Physical Exam - Summary Physical Exam Summary: Appearance: The patient is well-nourished in no acute distress and in no acute pain. Skin: The skin is warm and dry and skin color reflects adequate perfusion. HEENT: The head is normocephalic and atraumatic. The pupils are equal and reactive. The conjunctivae are clear and without drainage. Nares are patent and without drainage. Mouth reveals moist mucous membranes and the throat is without erythema and exudate. The external ears are intact. The ear canals are patent and without drainage. The tympanic membranes are intact. Neck: the neck is supple with full range of motion and non-tender. There are no carotid bruits. There is no neck vein distension. Respiratory: Chest is non-tender. Lungs are clear to auscultation and breath sounds are symmetrical and equal. Cardiovascular: Heart is regular rate and rhythm. There is no murmur or rub auscultated. There is no peripheral edema and pulses are symmetrical and equal. Abdomen: The abdomen is soft. He has some epigastric tenderness. There are normal bowel sounds heard in all four quadrants and there is no organomegaly palpated. Musculoskeletal: There is no back tenderness noted. Extremities are non-tender with full range of motion. There is good capillary refill. There is no peripheral edema or calf tenderness elicited. Neurological: Patient is alert and oriented to person, place and time. The patient has symmetrical motor strength in all four extremities. Cranial nerves are grossly intact. Deep tendon reflexes are symmetrical and equal in all four extremities. Psychiatric: The patient has an appropriate affect and does not exhibit any anxiety or depression. Triage Information Reviewed: Yes Vital Signs On Initial Exam: Initial Vitals Temp Pulse Resp BP Pulse Ox 97.2 F 123 20 129/81 96 10/30/17 12:39 10/30/17 12:39 10/30/17 12:39 10/30/17 12:39 10/30/17 12:39 Vital Signs Reviewed: Yes Diagnostics - Vital Signs Vital Signs Temp Pulse Resp BP Pulse Ox 10/30/17 12:39 97.2 F 123 20 129/81 96 - Laboratory Lab Results: Lab Results 10/30/17 10/30/17 10/30/17 Range/Units 14:47 14:47 14:47 WBC 8.5 (3.5-10.8) 10^3/ul RBC 4.38 (4.0-5.4) 10^6/ul Hgb 13.8 L (14.0-18.0) g/dl Hct 41 L (42-52) % MCV 93 (80-94) fL MCH 31 (27-31) pg MCHC 34 (31-36) g/dl RDW 14 (10.5-15) % Plt Count 260 (150-450) 10^3/ul MPV 6.3 L (7.4-10.4) um3 Neut % (Auto) 71.3 (38-83) % Lymph % (Auto) 18.3 L (25-47) % [place] % (Auto) 8.3 H (0-7) % Eos % (Auto) 1.5 (0-6) % Baso % (Auto) 0.6 (0-2) % Absolute Neuts (auto) 6.1 (1.5-7.7) 10^3/ul Absolute Lymphs (auto) 1.6 (1.0-4.8) 10^3/ul Absolute Monos (auto) 0.7 (0-0.8) 10^3/ul Absolute Eos (auto) 0.1 (0-0.6) 10^3/ul Absolute Basos (auto) 0 (0-0.2) 10^3/ul Absolute Nucleated RBC 0 10^3/ul Nucleated RBC % 0 INR (Anticoag Therapy) 0.98 (0.77-1.02) Sodium 139 (139-145) mmol/L Potassium 3.9 (3.5-5.0) mmol/L Chloride 102 (101-111) mmol/L Carbon Dioxide 29 (22-32) mmol/L Anion Gap 8 (2-11) mmol/L BUN 12 (6-24) mg/dL Creatinine 1.17 (0.67-1.17) mg/dL Est GFR ( Amer) 79.5 (>60) Est GFR (Non-Af Amer) 61.8 (>60) BUN/Creatinine Ratio 10.3 (8-20) Glucose 111 H (70-100) mg/dL Lactic Acid (0.5-2.0) mmol/L Calcium 9.4 (8.6-10.3) mg/dL Total Bilirubin 0.30 (0.2-1.0) mg/dL AST 14 (13-39) U/L ALT 15 (7-52) U/L Alkaline Phosphatase 78 (34-104) U/L C-Reactive Protein 5.20 H (< 5.00) mg/L Total Protein 6.5 (6.4-8.9) g/dL Albumin 3.7 (3.2-5.2) g/dL Globulin 2.8 (2-4) g/dL Albumin/Globulin Ratio 1.3 (1-3) Lipase 27 (11.0-82.0) U/L 10/30/17 Range/Units 14:47 WBC (3.5-10.8) 10^3/ul RBC (4.0-5.4) 10^6/ul Hgb (14.0-18.0) g/dl Hct (42-52) % MCV (80-94) fL MCH (27-31) pg MCHC (31-36) g/dl RDW (10.5-15) % Plt Count (150-450) 10^3/ul MPV (7.4-10.4) um3 Neut % (Auto) (38-83) % Lymph % (Auto) (25-47) % [place] % (Auto) (0-7) % Eos % (Auto) (0-6) % Baso % (Auto) (0-2) % Absolute Neuts (auto) (1.5-7.7) 10^3/ul Absolute Lymphs (auto) (1.0-4.8) 10^3/ul Absolute Monos (auto) (0-0.8) 10^3/ul Absolute Eos (auto) (0-0.6) 10^3/ul Absolute Basos (auto) (0-0.2) 10^3/ul Absolute Nucleated RBC 10^3/ul Nucleated RBC % INR (Anticoag Therapy) (0.77-1.02) Sodium (139-145) mmol/L Potassium (3.5-5.0) mmol/L Chloride (101-111) mmol/L Carbon Dioxide (22-32) mmol/L Anion Gap (2-11) mmol/L BUN (6-24) mg/dL Creatinine (0.67-1.17) mg/dL Est GFR ( Amer) (>60) Est GFR (Non-Af Amer) (>60) BUN/Creatinine Ratio (8-20) Glucose (70-100) mg/dL Lactic Acid 0.9 (0.5-2.0) mmol/L Calcium (8.6-10.3) mg/dL Total Bilirubin (0.2-1.0) mg/dL AST (13-39) U/L ALT (7-52) U/L Alkaline Phosphatase (34-104) U/L C-Reactive Protein (< 5.00) mg/L Total Protein (6.4-8.9) g/dL Albumin (3.2-5.2) g/dL Globulin (2-4) g/dL Albumin/Globulin Ratio (1-3) Lipase (11.0-82.0) U/L Result Diagrams: 10/30/17 14:47 10/30/17 14:47 Lab Statement: Any lab studies that have been ordered have been reviewed, and results considered in the medical decision making process. Re-Evaluation - Re-Evaluation First Eval Re-Evaluation Time: 17:51 Comment: Results discussed. Patient will be discharged. Complex Multi-Symp Course/Dx Course Of Treatment: Mr. Gasca has presented three times in 4 days. He is very anxious and always tachycardic. He believes that the cardizem started by Dr. Henry for his undelying tachycardia is causing his GI symptoms. He was diagnosed by CT scan with colitis on the . His WBC's are WNL as is his lactic acid arguing strongly against an ischemic colitis. He felt much improved after Ativan as he did on the . I am going to give him a script for the Ativan. I think he is safe for D/C. - Diagnoses Provider Diagnoses: Colitis Discharge - Sign-Out/Discharge Documenting (check all that apply): Discharge/Admit/Transfer - Discharge Plan Condition: Stable Disposition: HOME Prescriptions: LORazepam TAB(*) [Ativan TAB(*)] 1 mg PO Q6H PRN #20 tab MDD 4 PRN Reason: Pain Patient Education Materials: Colitis (ED) Referrals: Liam Patel MD [Primary Care Provider] - 3 Days Additional Instructions: Follow up with your primary care physician in one to two days. Return to the emergency department for any new or worsening symptoms. - Billing Disposition and Condition Condition: STABLE Disposition: HOME The documentation as recorded by the Luna turner Thomas accurately reflects the service I personally performed and the decisions made by me, Dorian Garcia MD.
[2017-10-30 18:33] VITALS: BP 143/94
== END 2017-10-30 18:33 | disposition home or self-care (01) ==
LOC: ED 12:36
DX: K52.9 Noninfective gastroenteritis and colitis, unspecified (principal); R10.9 Unspecified abdominal pain; R11.10 Vomiting, unspecified
CPT/HCPCS: 36415; 80053; 83605; 83690; 85025; 85610; 86140; 96374; 99282; A9270-GY

== ENCOUNTER 2017-11-24 12:54 | Emergency (ER) | payer MEDICARE, MEDICAID ==
[2017-11-24] MEDS ORDERED: LORazepam INJ* 2 MG/ML 1 ML VIAL IV ONE (13:35)
[2017-11-24 14:14] LABS: ABS Basophils 0 10^3/ul (0-0.2); ABS Eosinophils 0.1 10^3/ul (0-0.6); ABS Monocytes 0.5 10^3/ul (0-0.8); ABS Neutrophils 4.1 10^3/ul (1.5-7.7); ABS Nucleated RBC 0 10^3/ul; Eosinophil % 1.7 % (0-6); Hematocrit 38 % (42-52); Hemoglobin 12.8 g/dl (14.0-18.0); Mean Corpuscular HGB Conc 34 g/dl (31-36); Mean Corpuscular Hemoglobin 32 pg (27-31); Mean Corpuscular Volume 94 fL (80-94); Mean Platelet Volume 6.4 um3 (7.4-10.4); Nucleated Red Blood Cells % 0; Platelet Count 204 10^3/ul (150-450); Red Cell Distribution Width 14 % (10.5-15); White Blood Count 5.8 10^3/ul (3.5-10.8)
[2017-11-24 14:25] LABS: EGFR Non-African American 89.4 (>60)
[2017-11-24 14:50] LABS: Urine Appearance Clear; Urine Blood Negative (Negative); Urine Color Straw; Urine Ketones Negative (Negative); Urine Protein Negative (Negative); Urine Specific Gravity 1.004 (1.010-1.030); Urine Urobilinogen Negative (Negative)
[2017-11-24 16:41] VITALS: BP 133/87
--- NOTE | 2017-11-24 17:43 | ED ---
Sheila Talbert Tenzin, scribed for Dorian Garcia MD on 11/24/17 at 1334 . Abdominal Pain/Male - HPI Summary HPI Summary: Pt is a 71 years old male brought in by ambulance to the ED with a history of Colitis and stomach ulcer complaining of abdominal pain that started this morning. He notes that the abdominal pain hurts bad, "acid burning feel" and is also painful. He also reports of feeling nauseous. He admits being on blood thinner. He took Atavin and Zofran this morning but it didnt help alleviate his abdominal pain. - History of Current Complaint Chief Complaint: EDAbdPain Stated Complaint: ABD PAIN Time Seen by Provider: 11/24/17 13:01 Hx Obtained From: Patient Onset/Duration: Still Present Timing: Constant Severity Initially: Moderate Severity Currently: Moderate Pain Intensity: 9 Pain Scale Used: 0-10 Numeric Location: Other - upper abdomen. Character: Burning - Acid burning. Aggravating Factor(s): Nothing Alleviating Factor(s): Nothing Associated Signs And Symptoms: Positive: Nausea - Allergies/Home Medications Allergies/Adverse Reactions: Allergies Allergy/AdvReac Type Severity Reaction Status Date / Time codeine Allergy Unknown Verified 11/16/17 10:03 Reaction Details ibuprofen Allergy Unknown Verified 11/16/17 10:03 Reaction Details morphine Allergy Unknown Verified 11/16/17 10:03 Reaction Details rosuvastatin [From Crestor] Allergy Unknown Verified 11/16/17 10:03 Reaction Details Home Medications: Home Medications LORazepam TAB(*) [Ativan TAB(*)] 1 mg PO BID PRN MDD 2 mg 11/24/17 [History Confirmed 11/24/17] Levothyroxine TAB* [Synthroid TAB*] 125 mcg PO 0800 11/24/17 [History Confirmed 11/24/17] Ondansetron ODT TAB* [Zofran 4 MG Odt TAB*] 8 mg PO TID PRN 11/24/17 [History Confirmed 11/24/17] Potassium Chlor TAB* [Klor Con ER TAB*] 20 meq PO DAILY 11/24/17 [History Confirmed 11/24/17] PMH/Surg Hx/FS Hx/Imm Hx Endocrine/Hematology History: Reports: Hx Thyroid Disease Denies: Hx Diabetes Cardiovascular History: Reports: Hx Angina, Hx Hypercholesterolemia, Hx Hypertension, Hx Peripheral Vascular Disease, Other Cardiovascular Problems/ Disorders - CHRONIC TACHYCARDIA Denies: Hx Angioplasty, Hx Congestive Heart Failure, Hx Embolism, Hx Pacemaker/ICD Respiratory History: Reports: Other Respiratory Problems/Disorders - chronic cough Denies: Hx Asthma, Hx Chronic Obstructive Pulmonary Disease (COPD), Hx Lung Cancer, Hx Pleural Effusion, Hx Pulmonary Edema, Hx Pulmonary Embolism, Hx Seasonal Allergies, Hx Sleep Apnea GI History: Reports: Hx Gastroesophageal Reflux Disease, Hx Hiatal Hernia, Other GI Disorders Denies: Hx Irritable Bowel History: Reports: Hx Benign Prostatic Hyperplasia Denies: Hx Dialysis, Hx Kidney Infection, Hx Kidney Stones, Hx Renal Disease Musculoskeletal History: Reports: Hx Arthritis, Hx Back Problems Sensory History: Reports: Hx Contacts or Glasses, Hx Eye Injury Denies: Hx Cataracts, Hx Glaucoma, Hx Hearing Aid Opthamlomology History: Reports: Hx Contacts or Glasses, Hx Eye Injury Denies: Hx Cataracts, Hx Glaucoma Neurological History: Reports: Hx Developmental Delay, Hx Headaches, Hx Transient Ischemic Attacks (TIA), Other Neuro Impairments/Disorders - speech impediment Denies: Hx Migraine, Hx Seizures, Hx Spinal Cord Injury Psychiatric History: Reports: Hx Anxiety, Other Psychiatric Issues/Disorders Denies: Hx Depression, Hx Panic Disorder - Cancer History Cancer Type, Location and Year: Skin cancer 1999 - Surgical History Surgery Procedure, Year, and Place: None - Immunization History Date of Tetanus Vaccine: up to date Date of Influenza Vaccine: utd Infectious Disease History: No Infectious Disease History: Denies: Traveled Outside the [place] in Last 30 Days - Family History Known Family History: Positive: Cardiac Disease, Hypertension Negative: Diabetes - Social History Alcohol Use: None Hx Substance Use: No Substance Use Type: Reports: None Hx Tobacco Use: Yes Smoking Status (MU): Former Smoker Type: Cigarettes Have You Smoked in the Last Year: No Review of Systems Positive: Abdominal Pain, Nausea Positive: Anxious All Other Systems Reviewed And Are Negative: Yes Physical Exam - Summary Physical Exam Summary: Appearance: The patient is well-nourished in no acute distress and in no acute pain. Skin: The skin is warm and dry and skin color reflects adequate perfusion. HEENT: The head is normocephalic and atraumatic. The pupils are equal and reactive. The conjunctivae are clear and without drainage. Nares are patent and without drainage. Mouth reveals moist mucous membranes and the throat is without erythema and exudate. The external ears are intact. The ear canals are patent and without drainage. The tympanic membranes are intact. Neck: the neck is supple with full range of motion and non-tender. There are no carotid bruits. There is no neck vein distension. Respiratory: Chest is non-tender. Lungs are clear to auscultation and breath sounds are symmetrical and equal. Cardiovascular: Heart is regular rate and rhythm. There is no murmur or rub auscultated. There is no peripheral edema and pulses are symmetrical and equal. Abdomen: The abdomen is tender. There are normal bowel sounds heard in all four quadrants and there is no organomegaly palpated. Musculoskeletal: There is no back tenderness noted. Extremities are non-tender with full range of motion. There is good capillary refill. There is no peripheral edema or calf tenderness elicited. Neurological: Patient is alert and oriented to person, place and time. The patient has symmetrical motor strength in all four extremities. Cranial nerves are grossly intact. Deep tendon reflexes are symmetrical and equal in all four extremities. Psychiatric: The patient is anxious. Triage Information Reviewed: Yes Vital Signs On Initial Exam: Initial Vitals Temp Pulse Resp BP Pulse Ox 98.3 F 99 18 106/82 93 11/24/17 13:00 11/24/17 13:00 11/24/17 13:00 11/24/17 13:00 11/24/17 13:00 Vital Signs Reviewed: Yes Diagnostics - Vital Signs Vital Signs Temp Pulse Resp BP Pulse Ox 11/24/17 13:00 98.3 F 99 18 106/82 93 - Laboratory Lab Results: Lab Results 11/24/17 11/24/17 11/24/17 Range/Units 13:56 13:56 13:56 WBC 5.8 (3.5-10.8) 10^3/ul RBC 4.00 (4.0-5.4) 10^6/ul Hgb 12.8 L (14.0-18.0) g/dl Hct 38 L (42-52) % MCV 94 (80-94) fL MCH 32 H (27-31) pg MCHC 34 (31-36) g/dl RDW 14 (10.5-15) % Plt Count 204 (150-450) 10^3/ul MPV 6.4 L (7.4-10.4) um3 Neut % (Auto) 70.5 (38-83) % Lymph % (Auto) 18.0 L (25-47) % [place] % (Auto) 9.3 H (0-7) % Eos % (Auto) 1.7 (0-6) % Baso % (Auto) 0.5 (0-2) % Absolute Neuts (auto) 4.1 (1.5-7.7) 10^3/ul Absolute Lymphs (auto) 1.0 (1.0-4.8) 10^3/ul Absolute Monos (auto) 0.5 (0-0.8) 10^3/ul Absolute Eos (auto) 0.1 (0-0.6) 10^3/ul Absolute Basos (auto) 0 (0-0.2) 10^3/ul Absolute Nucleated RBC 0 10^3/ul Nucleated RBC % 0 Sodium 138 L (139-145) mmol/L Potassium 4.4 (3.5-5.0) mmol/L Chloride 106 (101-111) mmol/L Carbon Dioxide 27 (22-32) mmol/L Anion Gap 5 (2-11) mmol/L BUN 12 (6-24) mg/dL Creatinine 0.85 (0.67-1.17) mg/dL Est GFR ( Amer) 114.9 (>60) Est GFR (Non-Af Amer) 89.4 (>60) BUN/Creatinine Ratio 14.1 (8-20) Glucose 112 H (70-100) mg/dL Lactic Acid 1.0 (0.5-2.0) mmol/L Calcium 8.5 L (8.6-10.3) mg/dL Total Bilirubin 0.20 (0.2-1.0) mg/dL AST 16 (13-39) U/L ALT 15 (7-52) U/L Alkaline Phosphatase 72 (34-104) U/L C-Reactive Protein 12.70 H (< 5.00) mg/L Total Protein 5.7 L (6.4-8.9) g/dL Albumin 3.2 (3.2-5.2) g/dL Globulin 2.5 (2-4) g/dL Albumin/Globulin Ratio 1.3 (1-3) Lipase 24 (11.0-82.0) U/L Urine Color Urine Appearance Urine pH (5-9) Ur Specific Walker (1.010-1.030) Urine Protein (Negative) Urine Ketones (Negative) Urine Blood (Negative) Urine Nitrate (Negative) Urine Bilirubin (Negative) Urine Urobilinogen (Negative) Ur Leukocyte Esterase (Negative) Urine Glucose (Negative) 11/24/17 Range/Units 14:43 WBC (3.5-10.8) 10^3/ul RBC (4.0-5.4) 10^6/ul Hgb (14.0-18.0) g/dl Hct (42-52) % MCV (80-94) fL MCH (27-31) pg MCHC (31-36) g/dl RDW (10.5-15) % Plt Count (150-450) 10^3/ul MPV (7.4-10.4) um3 Neut % (Auto) (38-83) % Lymph % (Auto) (25-47) % [place]ke % (Auto) (0-7) % Eos % (Auto) (0-6) % Baso % (Auto) (0-2) % Absolute Neuts (auto) (1.5-7.7) 10^3/ul Absolute Lymphs (auto) (1.0-4.8) 10^3/ul Absolute Monos (auto) (0-0.8) 10^3/ul Absolute Eos (auto) (0-0.6) 10^3/ul Absolute Basos (auto) (0-0.2) 10^3/ul Absolute Nucleated RBC 10^3/ul Nucleated RBC % Sodium (139-145) mmol/L Potassium (3.5-5.0) mmol/L Chloride (101-111) mmol/L Carbon Dioxide (22-32) mmol/L Anion Gap (2-11) mmol/L BUN (6-24) mg/dL Creatinine (0.67-1.17) mg/dL Est GFR ( Amer) (>60) Est GFR (Non-Af Amer) (>60) BUN/Creatinine Ratio (8-20) Glucose (70-100) mg/dL Lactic Acid (0.5-2.0) mmol/L Calcium (8.6-10.3) mg/dL Total Bilirubin (0.2-1.0) mg/dL AST (13-39) U/L ALT (7-52) U/L Alkaline Phosphatase (34-104) U/L C-Reactive Protein (< 5.00) mg/L Total Protein (6.4-8.9) g/dL Albumin (3.2-5.2) g/dL Globulin (2-4) g/dL Albumin/Globulin Ratio (1-3) Lipase (11.0-82.0) U/L Urine Color Straw Urine Appearance Clear Urine pH 7.0 (5-9) Ur Specific Walker 1.004 L (1.010-1.030) Urine Protein Negative (Negative) Urine Ketones Negative (Negative) Urine Blood Negative (Negative) Urine Nitrate Negative (Negative) Urine Bilirubin Negative (Negative) Urine Urobilinogen Negative (Negative) Ur Leukocyte Esterase Negative (Negative) Urine Glucose Negative (Negative) Result Diagrams: 11/24/17 13:56 11/24/17 13:56 Lab Statement: Any lab studies that have been ordered have been reviewed, and results considered in the medical decision making process. Abdominal Pain Fem Course/Dx - Course Course Of Treatment: Mr. Gasca presented with the same C/O epigastric and low abdominal pain that he has been having. He saw Dr. Vargas who recommended endoscopy but he is on xarelto and hasn't been cleared to come off of it. When I asked him what I could do, he wanted symptomatic treatment. He has a great deal of anxiety and ativan has helped his pain in the past so I gave him some here which helped again. He asked me to prescribe more and I don't think he is aware that he has it at the [facility]. - Diagnoses Provider Diagnoses: Abdominal pain Discharge - Sign-Out/Discharge Documenting (check all that apply): Discharge/Admit/Transfer - Discharge Plan Condition: Stable Disposition: HOME Prescriptions: Ondansetron ODT TAB* [Zofran Odt TAB*] 4 mg PO Q6H PRN #20 tab.odt PRN Reason: Nausea/Vomiting Patient Education Materials: Abdominal Pain (ED) Referrals: Liam Patel MD [Primary Care Provider] - 3 Days Additional Instructions: Follow up with your primary care physician in three days. Return to the emergency department for any new or worsening symptoms. - Billing Disposition and Condition Condition: STABLE Disposition: HOME The documentation as recorded by the Sheila turner Tenzin accurately reflects the service I personally performed and the decisions made by me, Dorian Garcia MD.
== END 2017-11-24 16:38 | disposition home or self-care (01) ==
LOC: ED 12:54
DX: R10.13 Epigastric pain (principal); R10.30 Lower abdominal pain, unspecified; F41.9 Anxiety disorder, unspecified; Z87.891 Personal history of nicotine dependence; Z79.01 Long term (current) use of anticoagulants; Z88.5 Allergy status to narcotic agent; Z88.6 Allergy status to analgesic agent; Z88.8 Allergy status to other drugs, medicaments and biological substances
CPT/HCPCS: 36415; 80053; 81003; 83605; 83690; 85025; 86140; 96374; 99283; J2060

== ENCOUNTER 2017-12-04 03:57 | Emergency (ER) | payer MEDICARE, MEDICAID ==
[2017-12-04] MEDS ORDERED: Ondansetron ODT TAB* 4 MG PO ONE (04:18)
[2017-12-04] MEDS ORDERED: NS 0.9% 1000 ML* 1,000 ML IV ONE (04:18)
[2017-12-04] MEDS ORDERED: fentaNYL* 50 MCG/ML 2 ML VIAL (100 MCG VIAL) IV SLOW PU ONE (04:21)
[2017-12-04 04:39] LABS: ABS Basophils 0.1 10^3/ul (0-0.2); ABS Eosinophils 0.1 10^3/ul (0-0.6); ABS Lymphocytes 1.4 10^3/ul (1.0-4.8); ABS Monocytes 0.6 10^3/ul (0-0.8); ABS Nucleated RBC 0 10^3/ul; Eosinophil % 1.7 % (0-6); Hematocrit 41 % (42-52); Hemoglobin 13.5 g/dl (14.0-18.0); Lymphocyte % 19.8 % (25-47); Mean Corpuscular HGB Conc 33 g/dl (31-36); Mean Corpuscular Hemoglobin 31 pg (27-31); Mean Corpuscular Volume 94 fL (80-94); Mean Platelet Volume 6.6 um3 (7.4-10.4); Nucleated Red Blood Cells % 0; Platelet Count 219 10^3/ul (150-450); Red Cell Distribution Width 13 % (10.5-15); White Blood Count 7.2 10^3/ul (3.5-10.8)
[2017-12-04 04:55] LABS: EGFR Non-African American 74.1 (>60)
[2017-12-04] MEDS ORDERED: Iohexol 300* (CONTRAST) 10 ML SDV IV ONE (05:07)
[2017-12-04 06:52] VITALS: BP 149/100
--- NOTE | 2017-12-04 06:52 | ED ---
Fadumo Talbert Emily, scribed for Rupinder Rojas MD on 12/04/17 at 0425 . Abdominal Pain/Male - HPI Summary HPI Summary: This patient is a 71 year old MF BIBA to [facility] with a chief complaint of abd pain that began 2 weeks ago and worsened last night. The patient rates the pain 8/10 in severity. Symptoms aggravated by nothing. Symptoms alleviated by nothing. Patient reports vomiting and diaphoresis. Patient denies diarrhea, fever, and chills. Pt reports a history of colitis and an ulcer. - History of Current Complaint Chief Complaint: EDAbdPain Stated Complaint: CHEST/ABD PAIN Time Seen by Provider: 12/04/17 04:01 Hx Obtained From: Patient Onset/Duration: Sudden Onset, Lasting Weeks, Worse Since - Yesterday night Timing: Constant Severity Initially: Severe Severity Currently: Severe Pain Intensity: 8 Pain Scale Used: 0-10 Numeric Location: Diffuse Aggravating Factor(s): Nothing Alleviating Factor(s): Nothing Associated Signs And Symptoms: Positive: Vomiting, Other - Postiive diaphoresis - Allergies/Home Medications Allergies/Adverse Reactions: Allergies Allergy/AdvReac Type Severity Reaction Status Date / Time codeine Allergy Unknown Verified 11/16/17 10:03 Reaction Details ibuprofen Allergy Unknown Verified 11/16/17 10:03 Reaction Details morphine Allergy Unknown Verified 11/16/17 10:03 Reaction Details rosuvastatin [From Crestor] Allergy Unknown Verified 11/16/17 10:03 Reaction Details PMH/Surg Hx/FS Hx/Imm Hx Previously Healthy: No Endocrine/Hematology History: Reports: Hx Thyroid Disease Denies: Hx Diabetes Cardiovascular History: Reports: Hx Angina, Hx Hypercholesterolemia, Hx Hypertension, Hx Peripheral Vascular Disease, Other Cardiovascular Problems/ Disorders - CHRONIC TACHYCARDIA Denies: Hx Angioplasty, Hx Congestive Heart Failure, Hx Embolism, Hx Pacemaker/ICD Respiratory History: Reports: Other Respiratory Problems/Disorders - chronic cough Denies: Hx Asthma, Hx Chronic Obstructive Pulmonary Disease (COPD), Hx Lung Cancer, Hx Pleural Effusion, Hx Pulmonary Edema, Hx Pulmonary Embolism, Hx Seasonal Allergies, Hx Sleep Apnea GI History: Reports: Hx Gastroesophageal Reflux Disease, Hx Hiatal Hernia, Other GI Disorders Denies: Hx Irritable Bowel History: Reports: Hx Benign Prostatic Hyperplasia Denies: Hx Dialysis, Hx Kidney Infection, Hx Kidney Stones, Hx Renal Disease Musculoskeletal History: Reports: Hx Arthritis, Hx Back Problems Sensory History: Reports: Hx Contacts or Glasses, Hx Eye Injury Denies: Hx Cataracts, Hx Glaucoma, Hx Hearing Aid Opthamlomology History: Reports: Hx Contacts or Glasses, Hx Eye Injury Denies: Hx Cataracts, Hx Glaucoma Neurological History: Reports: Hx Developmental Delay, Hx Headaches, Hx Transient Ischemic Attacks (TIA), Other Neuro Impairments/Disorders - speech impediment Denies: Hx Migraine, Hx Seizures, Hx Spinal Cord Injury Psychiatric History: Reports: Hx Anxiety, Other Psychiatric Issues/Disorders Denies: Hx Depression, Hx Panic Disorder - Cancer History Cancer Type, Location and Year: Skin cancer 1999 - Surgical History Surgery Procedure, Year, and Place: None - Immunization History Date of Tetanus Vaccine: up to date Date of Influenza Vaccine: utd Infectious Disease History: No Infectious Disease History: Denies: Traveled Outside the [place] in Last 30 Days - Family History Known Family History: Positive: Cardiac Disease, Hypertension Negative: Diabetes - Social History Occupation: Retired Lives: Alone Alcohol Use: None Hx Substance Use: No Substance Use Type: Reports: None Hx Tobacco Use: Yes Smoking Status (MU): Former Smoker Type: Cigarettes Have You Smoked in the Last Year: No Review of Systems Positive: Skin Diaphoresis. Negative: Fever, Chills Positive: Abdominal Pain, Vomiting. Negative: Diarrhea All Other Systems Reviewed And Are Negative: Yes Physical Exam - Summary Physical Exam Summary: VITAL SIGNS: Reviewed. GENERAL: ~Patient is a well-developed and nourished male who is lying comfortable in the stretcher. Patient is not in any acute respiratory distress. HEAD AND FACE: No signs of trauma. No ecchymosis, hematomas or skull depressions. No sinus tenderness. EYES: PERRLA, EOMI x 2, No injected conjunctiva, no nystagmus. EARS: Hearing grossly intact. Ear canals and tympanic membranes are within normal limits. MOUTH: Oropharynx within normal limits. NECK: Supple, trachea is midline, no adenopathy, no JVD, no carotid bruit, no c- spine tenderness, neck with full ROM. CHEST: Symmetric, no tenderness at palpation LUNGS: Clear to auscultation bilaterally. No wheezing or crackles. CVS: Regular rate and rhythm, S1 and S2 present, no murmurs or gallops appreciated. ABDOMEN: Soft, Mild diffuse tenderness. No signs of distention. No rebound no guarding, and no masses palpated. Bowel sounds are normal. EXTREMITIES: FROM in all major joints, no edema, no cyanosis or clubbing. NEURO: Alert and oriented x 3. No acute neurological deficits. Speech is normal and follows commands. SKIN: Dry and warm Triage Information Reviewed: Yes Vital Signs On Initial Exam: Initial Vitals Temp Pulse Resp BP Pulse Ox 97.4 F 100 16 141/92 95 12/04/17 04:03 12/04/17 04:03 12/04/17 04:03 12/04/17 04:03 12/04/17 04:03 Vital Signs Reviewed: Yes Diagnostics - Vital Signs Vital Signs Temp Pulse Resp BP Pulse Ox 12/04/17 04:03 97.4 F 100 13 141/92 95 - Laboratory Result Diagrams: 12/04/17 04:28 12/04/17 04:28 Lab Statement: Any lab studies that have been ordered have been reviewed, and results considered in the medical decision making process. - CT CT Abdomen/Pelvis CT Interpretation Completed By: Radiologist - CT abdomen and pelvis reveals, per radiologist, stable small bilateral pleural effusions with compressive atelectasis and/or pneumonia. Large hiatal hernia without gastric inflammation. Small nonobstructing bilateral renal stones. ED physician has reviewed this radiology report. - EKG 0404 Cardiac Rate: Tachycardia EKG Rhythm: Sinus Rhythm - 103 BPM EKG Interpretation: Nml axis. Nml intervals. No ischemic changes Abdominal Pain Fem Course/Dx - Course Course Of Treatment: This patient is a 71 year old MF BIBA to [facility] with a chief complaint of abd pain that began 2 weeks ago and worsened last night. CT abdomen and pelvis reveals, per radiologist, stable small bilateral pleural effusions with compressive atelectasis and/or pneumonia. Large hiatal hernia without gastric inflammation. Small nonobstructing bilateral renal stones. The patient will be discharged home with follow up from PCP. Patient is agreeable with this plan. - Diagnoses Provider Diagnoses: Abdominal pain Discharge - Sign-Out/Discharge Documenting (check all that apply): Discharge/Admit/Transfer - discharge home - Discharge Plan Condition: Stable Disposition: HOME Patient Education Materials: Abdominal Pain (ED) Referrals: Liam Patel MD [Primary Care Provider] - 3 Days Additional Instructions: RETURN TO THE EMERGENCY DEPARTMENT FOR NEW OR WORSENING SYMPTOMS The documentation as recorded by the scribe, Day,Angelica accurately reflects the service I personally performed and the decisions made by me, Rupinder Rojas MD.
--- NOTE | 2017-12-04 08:46 | RAD ---
INDICATION: Abdominal pain. Colitis. Nausea and vomiting. Question ulcer. COMPARISON: No relevant prior exams available on the [facility] PACS for comparison. TECHNIQUE: Multidetector CT images were obtained from the lung bases to the ischial tuberosities with 119 mL Omnipaque 300 IV contrast. Multiplanar reformation. REPORT: Large hiatal hernia increase in size compared with the prior exam with associated compressive atelectasis at the LEFT greater than RIGHT lung base. Small bilateral dependent pleural effusions. Chronic parenchymal calcification at the posterior and lateral basal segments of the RIGHT lower lobe. Negative for cardiomegaly or pericardial effusion. Unchanged subcentimeter hypodense lesion at the LEFT lateral hepatic segment compared with the CT from March 08, 2016 without concern. No suspicious focal hepatic lesions or biliary dilatation. Incompletely distended gallbladder limiting assessment without suspicious finding. Macroscopic calcification at the tail of the pancreas without change likely sequela of previous pancreatitis. Mild dilatation of the pancreatic duct at the uncinate process is without gross change. No suspicious acute abnormality of the pancreas. Small splenule adjacent to the unremarkable dominant spleen. Negative for CT abnormality of the upper GI aside from the noted hiatal hernia, small bowel, or infra cecal appendix. Severe diverticulosis of the colon without findings of acute diverticulitis. Negative for ascites or free air. Small fat-containing umbilical hernia without inflammatory change. Normal adrenal glands. Nonobstructing 3.5 mm stone lower pole calyx RIGHT kidney. Few renal cysts including a mildly complex exophytic cyst at the midpole of the RIGHT kidney with mild septal calcification without gross change compared with the March 08, 2016 exam without concern. Negative for suspicious focal renal lesions or hydronephrosis. Unremarkable nondilated ureters and urinary bladder. Unremarkable grossly symmetric seminal vesicles. Negative for lymphadenopathy. Normal diameter abdominal aorta and iliac arteries with mild atherosclerotic plaque. Physiologic distention of the IVC. Negative for suspicious osseous lesions. Lumbar sacral spine degenerative spondylosis and facet joint osteoarthritis most prominent at L4-L5 where there is associated slight grade 1 degenerative anterolisthesis and moderate acquired central canal stenosis without gross change. IMPRESSION: 1. Large hiatal hernia increase in size compared with the prior exam with associated compressive atelectasis at the LEFT greater than RIGHT lung base. Small bilateral dependent pleural effusions without significant change. 2. Normal appendix documented. Severe diverticulosis of the colon without findings of acute diverticulitis. 3. Small fat-containing umbilical hernia without inflammatory change. 4. Nonobstructing 3.5 mm stone lower pole calyx RIGHT kidney. Negative for obstructive uropathy. 5. Lumbar sacral spine degenerative spondylosis and facet joint osteoarthritis most prominent at L4-L5 where there is associated slight grade 1 degenerative anterolisthesis and moderate acquired central canal stenosis without gross change.
== END 2017-12-04 06:53 | disposition home or self-care (01) ==
LOC: ED 03:57
DX: R10.84 Generalized abdominal pain (principal); R11.10 Vomiting, unspecified; R61 Generalized hyperhidrosis; R00.0 Tachycardia, unspecified; J90 Pleural effusion, not elsewhere classified; K57.30 Diverticulosis of large intestine without perforation or abscess without bleeding; K42.9 Umbilical hernia without obstruction or gangrene; N20.0 Calculus of kidney; E07.9 Disorder of thyroid, unspecified; I20.9 Angina pectoris, unspecified; I10 Essential (primary) hypertension; E78.00 Pure hypercholesterolemia, unspecified; I73.9 Peripheral vascular disease, unspecified; K21.9 Gastro-esophageal reflux disease without esophagitis; K44.9 Diaphragmatic hernia without obstruction or gangrene; N40.0 Benign prostatic hyperplasia without lower urinary tract symptoms; Z86.73 Personal history of transient ischemic attack (TIA), and cerebral infarction without residual deficits; R62.50 Unspecified lack of expected normal physiological development in childhood; F41.9 Anxiety disorder, unspecified; Z85.828 Personal history of other malignant neoplasm of skin; Z88.6 Allergy status to analgesic agent; Z88.5 Allergy status to narcotic agent; Z88.8 Allergy status to other drugs, medicaments and biological substances; Z87.891 Personal history of nicotine dependence
CPT/HCPCS: 36415; 74177; 80053; 82150; 83690; 83735; 85025; 86140; 93005; 96374; 99284; A9270-GY; J3010; Q9967

== ENCOUNTER 2017-12-15 08:53 | Inpatient (IN) | payer MEDICARE, MEDICAID ==
[2017-12-15 11:59] LABS: Urine Appearance Cloudy; Urine Blood 3+ (Negative); Urine Color Yellow; Urine Ketones Negative (Negative); Urine Protein 1+(30 mg/dL) (Negative); Urine Specific Gravity 1.009 (1.010-1.030); Urine Urobilinogen Negative (Negative)
[2017-12-15] MEDS ORDERED: Ciprofloxacin TAB* 500 MG PO ONE (12:18)
--- NOTE | 2017-12-15 12:30 | ED ---
Blanca Talbert Julia, scribed for Bharath Moseley MD on 12/15/17 at 1027 . GI/ HPI - HPI Summary HPI Summary: This patient is a 72 year old M BIBA to [facility] with a chief complaint of difficulty urinating with the last urination at 18:00 last night. He reports pressure and difficulty having BM. Reports PMHx of diverticulosis. - History of Current Complaint Chief Complaint: EDUrogenitalProblems Time Seen by Provider: 12/15/17 10:19 Stated Complaint: UNABLE TO URINATE Hx Obtained From: Patient Onset/Duration: Started Hours Ago Timing: Constant Location of Pain: Suprapubic Pain Characteristics: Pressure Associated Signs and Symptoms: Positive: Constipation Alleviating Factor(s): Nothing - Additional Pertinent History Primary Care Physician: [id number] - Allergy/Home Medications Allergies/Adverse Reactions: Allergies Allergy/AdvReac Type Severity Reaction Status Date / Time codeine Allergy Unknown Verified 12/05/17 08:52 Reaction Details ibuprofen Allergy Unknown Verified 12/05/17 08:52 Reaction Details morphine Allergy Unknown Verified 12/05/17 08:52 Reaction Details rosuvastatin [From Crestor] Allergy Unknown Verified 12/05/17 08:52 Reaction Details Home Medications: Home Medications Cyclobenzaprine TAB* [Flexeril 10 MG TAB*] 10 mg PO BID PRN 12/15/17 [History Confirmed 12/15/17] Ferrous Sulfate TAB* 325 mg PO BID 12/15/17 [History Confirmed 12/15/17] Furosemide TAB* [Lasix TAB*] 40 mg PO DAILY 12/15/17 [History Confirmed 12/15/17 ] LORazepam TAB(*) [Ativan 1 MG TAB (*)] 2 mg PO Q6H PRN MDD 4 12/15/17 [History Confirmed 12/15/17] Levothyroxine TAB* [Synthroid TAB*] 125 mcg PO DAILY 12/15/17 [History Confirmed 12/15/17] Lisinopril TAB* [Prinivil TAB*] 10 mg PO DAILY 12/15/17 [History Confirmed 12/15] Omeprazole CAP* [Prilosec CAP* 20 MG] 40 mg PO BID 12/15/17 [History Confirmed 12/15/17] Ondansetron TAB* [Zofran 4 MG Tab*] 4 mg PO Q6H PRN 12/15/17 [History Confirmed 12/15/17] Pentoxifylline CR TAB* [TRENtal CR TAB*] 400 mg PO TID 12/15/17 [History Confirmed 12/15/17] Polyethylene Glycol 3350* [Miralax*] 17 gm PO DAILY PRN 12/15/17 [History Confirmed 12/15/17] Rivaroxaban TAB(*) [Xarelto 15 mg(*)] 15 mg PO DAILY 12/15/17 [History Confirmed 12/15/17] Sucralfate TAB* [Carafate*] 1 gm PO TID 12/15/17 [History Confirmed 12/15/17] Tamsulosin CAP* [Flomax CAP*] 0.4 mg PO BID 12/15/17 [History Confirmed 12/15/17 ] Thioridazine TAB* [Mellaril*] 50 mg PO BID 12/15/17 [History Confirmed 12/15/17] busPIRone TAB* [Buspar TAB*] 20 mg PO TID 12/15/17 [History Confirmed 12/15/17] rOPINIRole TAB* [Requip*] 3 mg PO TID 12/15/17 [History Confirmed 12/15/17] traMADol TAB* [Ultram*] 100 mg PO Q8H PRN MDD 6 12/15/17 [History Confirmed 03/26] PMH/Surg Hx/FS Hx/Imm Hx Endocrine/Hematology History: Reports: Hx Thyroid Disease Denies: Hx Diabetes Cardiovascular History: Reports: Hx Angina, Hx Hypercholesterolemia, Hx Hypertension, Hx Peripheral Vascular Disease, Other Cardiovascular Problems/ Disorders - CHRONIC TACHYCARDIA Denies: Hx Angioplasty, Hx Congestive Heart Failure, Hx Embolism, Hx Pacemaker/ICD Respiratory History: Reports: Other Respiratory Problems/Disorders - chronic cough Denies: Hx Asthma, Hx Chronic Obstructive Pulmonary Disease (COPD), Hx Lung Cancer, Hx Pleural Effusion, Hx Pulmonary Edema, Hx Pulmonary Embolism, Hx Seasonal Allergies, Hx Sleep Apnea GI History: Reports: Hx Gastroesophageal Reflux Disease, Hx Hiatal Hernia, Other GI Disorders Denies: Hx Irritable Bowel History: Reports: Hx Benign Prostatic Hyperplasia Denies: Hx Dialysis, Hx Kidney Infection, Hx Kidney Stones, Hx Renal Disease Musculoskeletal History: Reports: Hx Arthritis, Hx Back Problems Sensory History: Reports: Hx Contacts or Glasses, Hx Eye Injury Denies: Hx Cataracts, Hx Glaucoma, Hx Hearing Aid Opthamlomology History: Reports: Hx Contacts or Glasses, Hx Eye Injury Denies: Hx Cataracts, Hx Glaucoma Neurological History: Reports: Hx Developmental Delay, Hx Headaches, Hx Transient Ischemic Attacks (TIA), Other Neuro Impairments/Disorders - speech impediment Denies: Hx Migraine, Hx Seizures, Hx Spinal Cord Injury Psychiatric History: Reports: Hx Anxiety, Other Psychiatric Issues/Disorders Denies: Hx Depression, Hx Panic Disorder - Cancer History Cancer Type, Location and Year: Skin cancer 1999 - Surgical History Surgery Procedure, Year, and Place: None - Immunization History Date of Tetanus Vaccine: up to date Date of Influenza Vaccine: utd Infectious Disease History: No Infectious Disease History: Denies: Traveled Outside the [place] in Last 30 Days - Family History Known Family History: Positive: Cardiac Disease, Hypertension Negative: Diabetes - Social History Alcohol Use: None Hx Substance Use: No Substance Use Type: Reports: None Hx Tobacco Use: Yes Smoking Status (MU): Former Smoker Type: Cigarettes Have You Smoked in the Last Year: No Review of Systems Gastrointestinal: Other - constipation Positive: pain - pressure, other - difficulty urinating All Other Systems Reviewed And Are Negative: Yes Physical Exam - Summary Physical Exam Summary: VITAL SIGNS: Reviewed. GENERAL: Patient is a well-developed and nourished male who is lying comfortable in the stretcher. Patient is not in any acute respiratory distress. Patient is in no pain distress HEAD AND FACE: No signs of trauma. No ecchymosis, hematomas or skull depressions. No sinus tenderness. EYES: PERRLA, EOMI x 2, No injected conjunctiva, no nystagmus. EARS: Hearing grossly intact. Ear canals and tympanic membranes are within normal limits. MOUTH: Oropharynx within normal limits. NECK: Supple, trachea is midline, no adenopathy, no JVD, no carotid bruit, no c- spine tenderness, neck with full ROM. CHEST: Symmetric, no tenderness at palpation LUNGS: Clear to auscultation bilaterally. No wheezing or crackles. CVS: Regular rate and rhythm, S1 and S2 present, no murmurs or gallops appreciated. ABDOMEN: Slight abdominal distention without tenderness. No rebound no guarding , and no masses palpated. Bowel sounds are normal. EXTREMITIES: FROM in all major joints, no edema, no cyanosis or clubbing. NEURO: Alert and oriented x 3. No acute neurological deficits. Speech is normal and follows commands. SKIN: Dry and warm Triage Information Reviewed: Yes Vital Signs On Initial Exam: Initial Vitals Temp Pulse Resp BP Pulse Ox 99.7 F 124 16 139/90 92 12/15/17 09:04 12/15/17 09:04 12/15/17 09:04 12/15/17 09:04 12/15/17 09:04 Vital Signs Reviewed: Yes Diagnostics - Vital Signs Vital Signs Temp Pulse Resp BP Pulse Ox 12/15/17 09:04 99.7 F 124 16 139/90 92 - Laboratory Lab Statement: Any lab studies that have been ordered have been reviewed, and results considered in the medical decision making process. GIGU Course/Dx - Course Assessment/Plan: 72 year old M BIBA to [facility] with a chief complaint of difficulty urinating with the last urination at 18:00 last night. He reports pressure and difficulty having BM. Reports PMHx of diverticulosis.Bladder scan shows more than 500cc of urine. Patient had couple tries of voiding but was unsuccessful therefore had to put Flynn catheter in. UA is contaminated, however he may be having UTI, therefore patient is given ciprofloxacin. He will be discharged home with urology consult. - Diagnoses Provider Diagnoses: UTI (urinary tract infection), Urinary retention Discharge - Sign-Out/Discharge Documenting (check all that apply): Discharge/Admit/Transfer - Discharge Plan Condition: Stable Disposition: HOME Prescriptions: Ciprofloxacin TAB* [Cipro 500 MG TAB*] 500 mg PO BID #6 tab Patient Education Materials: Urinary Retention in Men (ED), Urinary Tract Infection in Men (ED) Referrals: Liam Patel MD [Primary Care Provider] - Henry Campbell MD [Medical Doctor] - 2 Days Additional Instructions: RETURN TO THE EMERGENCY DEPARTMENT FOR ANY WORSENING OR NEW SYMPTOMS. The documentation as recorded by the Blanca turner Julia accurately reflects the service I personally performed and the decisions made by , Bharath Moseley MD.
[2017-12-15 14:16] LABS: ABS Basophils 0.1 10^3/ul (0-0.2); ABS Eosinophils 0 10^3/ul (0-0.6); ABS Lymphocytes 1.4 10^3/ul (1.0-4.8); ABS Monocytes 0.9 10^3/ul (0-0.8); ABS Neutrophils 14.1 10^3/ul (1.5-7.7); ABS Nucleated RBC 0 10^3/ul; Eosinophil % 0.3 % (0-6); Hematocrit 45 % (42-52); Lymphocyte % 8.2 % (25-47); Mean Corpuscular HGB Conc 34 g/dl (31-36); Mean Corpuscular Hemoglobin 32 pg (27-31); Mean Corpuscular Volume 94 fL (80-94); Mean Platelet Volume 6.4 um3 (7.4-10.4); Nucleated Red Blood Cells % 0; Platelet Count 192 10^3/ul (150-450); Red Blood Count 4.73 10^6/ul (4.0-5.4); Red Cell Distribution Width 14 % (10.5-15); White Blood Count 16.5 10^3/ul (3.5-10.8)
[2017-12-15] MEDS ORDERED: NS 0.9% 1000 ML* 1,000 ML IV ONE ×2 (14:18→18:35)
[2017-12-15 14:33] LABS: EGFR Non-African American 62.9 (>60)
--- NOTE | 2017-12-15 15:36 | RAD ---
INDICATION: Chest and abdominal pain COMPARISON: Chest x-ray October 28, 2017 TECHNIQUE: Single AP portable view of the chest and 3 views of the abdomen were obtained. FINDINGS: Image quality is compromised due to the relative inferiority of a portable radiography. The heart and mediastinum exhibit normal size and contour. The lungs are grossly clear. There is no evidence of a large pleural effusion. Visualized bones are normal for the patient's age. Gas and stool is seen throughout the length of the colon. There is no pathologic bowel dilatation. There is no radiographically apparent wall thickening or free intraperitoneal gas. IMPRESSION: No radiographically apparent acute abnormality of the chest or abdomen.
[2017-12-15] MEDS ORDERED: Acetaminophen TAB* 325 MG PO ONE (15:57)
[2017-12-15] MEDS ORDERED: Ondansetron TAB* 4 MG PO PRN (18:47)
[2017-12-15] MEDS ORDERED: Polyethylene Glycol 3350* 17 GM PACKET PO PRN (18:47)
--- NOTE | 2017-12-15 19:01 | ADMNOTE ---
Subjective Date of Service: 12/15/17 Interval History: ADMISSION HISTORY AND PHYSICAL EXAM: Allergies Allergy/AdvReac Type Severity Reaction Status Date / Time codeine Allergy Unknown Verified 12/05/17 08:52 Reaction Details ibuprofen Allergy Unknown Verified 12/05/17 08:52 Reaction Details morphine Allergy Unknown Verified 12/05/17 08:52 Reaction Details rosuvastatin [From Crestor] Allergy Unknown Verified 12/05/17 08:52 Reaction Details Home Medications Medication Instructions Recorded Confirmed Type Ciprofloxacin TAB* [Cipro 500 MG 500 mg PO BID #6 tab 12/15/17 Rx TAB*] Cyclobenzaprine TAB* [Flexeril 10 10 mg PO BID PRN 12/15/17 12/15/17 History MG TAB*] Ferrous Sulfate TAB* 325 mg PO BID 12/15/17 12/15/17 History Furosemide TAB* [Lasix TAB*] 40 mg PO DAILY 12/15/17 12/15/17 History LORazepam TAB(*) [Ativan 1 MG TAB 2 mg PO Q6H PRN MDD 4 12/15/17 12/15/17 History (*)] Levothyroxine TAB* [Synthroid TAB*] 125 mcg PO DAILY 12/15/17 12/15/17 History Lisinopril TAB* [Prinivil TAB*] 10 mg PO DAILY 12/15/17 12/15/17 History Omeprazole CAP* [Prilosec CAP* 20 40 mg PO BID 12/15/17 12/15/17 History MG] Ondansetron TAB* [Zofran 4 MG Tab*] 4 mg PO Q6H PRN 12/15/17 12/15/17 History Pentoxifylline CR TAB* [TRENtal CR 400 mg PO TID 12/15/17 12/15/17 History TAB*] Polyethylene Glycol 3350* 17 gm PO DAILY PRN 12/15/17 12/15/17 History [Miralax*] Rivaroxaban TAB(*) [Xarelto 15 15 mg PO DAILY 12/15/17 12/15/17 History mg(*)] Sucralfate TAB* [Carafate*] 1 gm PO TID 12/15/17 12/15/17 History Tamsulosin CAP* [Flomax CAP*] 0.4 mg PO BID 12/15/17 12/15/17 History Thioridazine TAB* [Mellaril*] 50 mg PO BID 12/15/17 12/15/17 History busPIRone TAB* [Buspar TAB*] 20 mg PO TID 12/15/17 12/15/17 History rOPINIRole TAB* [Requip*] 3 mg PO TID 12/15/17 12/15/17 History traMADol TAB* [Ultram*] 100 mg PO Q8H PRN MDD 6 12/15/17 12/15/17 History HPI: The patient came to the ED because he was unable to urinate. He states the last time he urinated was 6 PM on 12/14. His bladder scan was over 600 l and a Flynn was inserted. Social History: Findings - Single, lives alone at [facility], never , no children. Worked at [employer]. Brother Kavon Gasca is his SDM ([phone]). 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 Past Medical History: Findings - HTN, GERD, developmental delay, restless leg, hypothyroid Review of Systems - Measurements Intake and Output: Intake and Output Last 24 Hours 12/13/17 12/14/17 12/15/17 12/16/17 06:59 06:59 06:59 06:59 Intake Total 1999 Balance 1999 Weight 197 lb Intake: IV Fluids 1000 IVPB 1000 - Review of Systems Constitutional Symptoms: Negative: Weight Gain, Weight Loss, Weakness, Fatigue, Fever, Night Sweats, Unexplained Falls, Other Dermatology: Positive: Normal HEENT: Positive: Normal Eyes: Positive: Normal Thyroid: Positive: Primary Hypothyroidism Pulmonary: Positive: Normal Cardiology: Positive: Normal Gastroenterology: Positive: Normal Genital - Urinary: Positive: Other - urinary retention Endocrinology: Positive: Thyroid Problems Hematologic/Lymphatic: Negative: Anemia, Easy Brusing, Hx Leukemia, Hx Lymphoma, Use of Anticoagulant, Use of Antiplatelet Drugs, Other Neurology: Positive: Normal Psychiatry: Positive: Normal Allergic/Immunologic: Negative: Hx Anaphylaxis, Hx Angioedema, Hx Environmental, Hx Seasonal, Athsma, Hx HIV, Immunocompromise, Swollen Glands LymphNodes, Other Objective Active Medications: Buspirone HCl (Buspar Tab*) 20 mg PO TID [facility] Cyclobenzaprine HCl (Flexeril Tab*) 10 mg PO BID PRN PRN Reason: PAIN Enoxaparin Sodium (Lovenox(*)) 40 mg SUBCUT Q24H [facility] Ferrous Sulfate (Ferrous Sulfate Tab*) 325 mg PO BID [facility] Furosemide (Lasix Tab*) 40 mg PO DAILY [facility] Sodium Chloride (Ns 0.9% 1000 Ml*) 1,000 mls @ 1,000 mls/hr IV .PER RATE ONE Stop: 12/15/17 19:34 Last Admin: 12/15/17 18:36 Dose: 1,000 mls/hr Levothyroxine Sodium (Synthroid Tab*) 125 mcg PO DAILY [facility] Lisinopril (Prinivil Tab*) 10 mg PO DAILY [facility] Lorazepam (Ativan Tab(*)) 2 mg PO Q6H PRN PRN Reason: ANXIETY Omeprazole (Prilosec Cap*) 40 mg PO BID [facility] Ondansetron HCl (Zofran Tab*) 4 mg PO Q6H PRN PRN Reason: NAUSEA Pentoxifylline (Trental Cr Tab*) 400 mg PO TID [facility] Polyethylene Glycol/Electrolytes (Miralax*) 17 gm PO DAILY PRN PRN Reason: CONSTIPATION Rivaroxaban (Xarelto(*)) 15 mg PO DAILY [facility] Ropinirole HCl (Requip*) 3 mg PO TID [facility] Sucralfate (Carafate*) 1 gm PO TID [facility] Tamsulosin HCl (Flomax Cap*) 0.4 mg PO BID [facility] Thioridazine HCl (Mellaril*) 50 mg PO BID [facility] Tramadol HCl (Ultram*) 100 mg PO Q8H PRN PRN Reason: PAIN Vital Signs - 8 hr 12/15/17 12/15/17 12/15/17 11:00 11:03 11:33 Temperature Pulse Rate 125 Respiratory Rate Blood Pressure 137/83 131/79 (mmHg) O2 Sat by Pulse 94 Oximetry 12/15/17 12/15/17 12/15/17 12:03 13:21 14:58 Temperature Pulse Rate 152 130 Respiratory Rate Blood Pressure 129/87 (mmHg) O2 Sat by Pulse 96 96 Oximetry 12/15/17 12/15/17 12/15/17 15:00 15:03 15:33 Temperature Pulse Rate 128 127 124 Respiratory 18 17 Rate Blood Pressure 123/80 141/81 (mmHg) O2 Sat by Pulse 96 97 94 Oximetry 12/15/17 12/15/1718 15:52 16:00 16:03 Temperature 100.5 F Pulse Rate 125 126 Respiratory 20 19 Rate Blood Pressure 132/79 (mmHg) O2 Sat by Pulse 94 94 Oximetry 12/15/17 12/15/17 12/15/17 16:33 17:00 17:03 Temperature Pulse Rate 130 132 131 Respiratory 20 17 23 Rate Blood Pressure 133/79 130/79 (mmHg) O2 Sat by Pulse 93 93 92 Oximetry 12/15/17 12/15/17 12/15/17 17:33 18:00 18:03 Temperature Pulse Rate 130 127 128 Respiratory 23 20 18 Rate Blood Pressure 125/80 118/81 (mmHg) O2 Sat by Pulse 94 92 94 Oximetry 12/15/17 18:33 Temperature Pulse Rate 124 Respiratory 18 Rate Blood Pressure 105/70 (mmHg) O2 Sat by Pulse 95 Oximetry Oxygen Devices in Use Now: None Appearance: Alert, partly up on ED stretcher. In good spirits. Looks comfortable. Eyes: No Scleral Icterus Neck: NL Appearance and Movements; NL JVP, No Thyroid Enlargement, Masses Respiratory: Symmetrical Chest Expansion and Respiratory Effort, Clear to Auscultation, Clear to Percussion Cardiovascular: NL Sounds; No Murmurs; No JVD, RRR, No Edema, - Abdominal: NL Sounds; No Tenderness; No Distention, No Hepatosplenomegaly, - Extremities: No Edema, No Clubbing, Cyanosis, - Skin: No Rash or Ulcers, No Nodules or Sclerosis, - Neurological: Alert and Oriented x 3, NL Sensation Result Diagrams: 12/15/17 14:10 12/15/17 14:10 Assess/Plan/Problems-Billing Assessment: - Patient Problems (1) Urinary retention Current Visit: No Status: Acute Code(s): R33.9 - RETENTION OF URINE, UNSPECIFIED SNOMED Code(s): 784698219 Comment: This also occurred in 03/2016. He will need to fup with a urologist as an outpt. Leg bag requested. (2) UTI (urinary tract infection) Current Visit: Yes Status: Acute Comment: Abnl U/A, leukocytosis. One dose cipro given in ED, will continue with cefuroxime to avoid QT prolongation which several of his home meds can also produce. (3) Psychiatric disorder Current Visit: No Status: Acute Code(s): F99 - MENTAL DISORDER, NOT OTHERWISE SPECIFIED SNOMED Code(s): 07709777 Comment: Continue thioridazine-he will likely need to follow up with his primary psychiatrist as it is possible the thioridazine can cause urinary retention. (4) Hypothyroid Current Visit: Yes Status: Acute Code(s): E03.9 - HYPOTHYROIDISM, UNSPECIFIED SNOMED Code(s): 33241916 Comment: TSH wnl 10/21/17. Continue home levothyroxine. (5) Chronic GERD Current Visit: Yes Status: Acute Code(s): K21.9 - GASTRO-ESOPHAGEAL REFLUX DISEASE WITHOUT ESOPHAGITIS SNOMED Code(s): 818738864 Comment: Continue omeprazole. 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 Of the 7 LE US vein studies he had, all were neg except for one with a peroneal vein partially occluding thrombus. Continue rivaroxaban.
--- NOTE | 2017-12-15 19:27 | ED ---
Blanca Talbert Julia, scribed for Bharath Moseley MD on 12/15/17 at 1417 . Progress - Progress Note Progress Note: Prior discharge, a nurse informed that the patient had become tachycardic at 150BPM so an EKG was ordered. An Abdomen XR reveals, as per radiologist: No radiographically apparent acute abnormality of the chest or abdomen. A CXR reveals, as per radiologist: No radiographically apparent acute abnormality of the chest or abdomen. ED Physician has reviewed these reports. Temperature measured at 100.5. - EKG/XRAY/CT EKG: NSR Comments: tachycardia 120 BPM, no ST elevation Course/Dx - Course Course Of Treatment: Before being discharged patient became tachycardic and febrile. Patient is given IV fluids and tylenol. However he is still tachycardic , therefore he would benefit from IV antibiotics. Discussed patient care with Dr. Schilling who agrees to admit this patient. - Diagnoses Provider Diagnoses: UTI (urinary tract infection), Urinary retention - Provider Notifications Discussed Care Of Patient With: Cam Schilling - hospitalist Time Discussed With Above Provider: 18:05 Instructed by Provider To: Admit As Inpatient Discharge - Sign-Out/Discharge Documenting (check all that apply): Discharge/Admit/Transfer - Discharge Plan Condition: Stable Disposition: ADMITTED TO [facility] - Billing Disposition and Condition Condition: STABLE Disposition: Admitted to [facility] The documentation as recorded by the oksanaibBlanca melendez Julia accurately reflects the service I personally performed and the decisions made by Pradip snyder Walter, MD.
[2017-12-15] MEDS ORDERED: Enoxaparin(*) 40 MG/0.4 ML SYR SUBCUT SCH (20:00)
[2017-12-15] MEDS ORDERED: Ciprofloxacin TAB* 500 MG PO SCH (21:00)
[2017-12-15] MEDS: Cyclobenzaprine TAB* 10 MG PO PRN (21:26)
[2017-12-15] MEDS: Omeprazole CAP* 20 MG PO SCH (21:27)
[2017-12-15] MEDS: busPIRone TAB* 10 MG PO SCH (21:27)
[2017-12-15] MEDS: Sucralfate TAB* 1 GM PO SCH (21:28)
[2017-12-15] MEDS: ceFUROXime TAB(*) 250 MG PO SCH (21:28)
[2017-12-15] MEDS: Ferrous Sulfate TAB* 325 MG PO SCH (21:28)
[2017-12-15] MEDS: traMADol TAB* 50 MG PO PRN (21:29)
[2017-12-15] MEDS: Tamsulosin CAP* 0.4 MG PO SCH (21:29)
[2017-12-15] MEDS: LORazepam TAB(*) 1 MG PO PRN (21:30)
[2017-12-15] MEDS: rOPINIRole TAB* 1 MG PO SCH (21:34)
[2017-12-15] MEDS: Pentoxifylline CR TAB* 400 MG PO SCH (21:34)
[2017-12-15] MEDS: THIORIDAZINE 50 MG PO SCH (21:35)
[2017-12-16] MEDS: traMADol TAB* 50 MG PO PRN ×2 (04:29→12:39)
[2017-12-16] MEDS: Levothyroxine TAB* 125 MCG TAB PO SCH (04:30)
[2017-12-16] MEDS: Tamsulosin CAP* 0.4 MG PO SCH ×2 (07:58→20:48)
[2017-12-16] MEDS: Cyclobenzaprine TAB* 10 MG PO PRN (07:58)
[2017-12-16] MEDS: Sucralfate TAB* 1 GM PO SCH ×3 (07:58→20:49)
[2017-12-16] MEDS: rOPINIRole TAB* 1 MG PO SCH ×3 (07:58→20:54)
[2017-12-16] MEDS: Ferrous Sulfate TAB* 325 MG PO SCH ×2 (07:59→20:48)
[2017-12-16] MEDS: Rivaroxaban TAB(*) 15 MG PO SCH (07:59)
[2017-12-16] MEDS: ceFUROXime TAB(*) 250 MG PO SCH (07:59)
[2017-12-16] MEDS: Furosemide TAB* 40 MG PO SCH (08:00)
[2017-12-16] MEDS: busPIRone TAB* 10 MG PO SCH ×3 (08:00→20:49)
[2017-12-16] MEDS: THIORIDAZINE 50 MG PO SCH ×2 (08:00→20:54)
[2017-12-16] MEDS: Lisinopril TAB* 10 MG PO SCH (08:00)
[2017-12-16] MEDS: Pentoxifylline CR TAB* 400 MG PO SCH ×3 (08:00→20:54)
[2017-12-16] MEDS: LORazepam TAB(*) 1 MG PO PRN ×3 (08:11→23:47)
[2017-12-16] MEDS: Omeprazole CAP* 20 MG PO SCH ×2 (08:43→16:43)
--- NOTE | 2017-12-16 12:30 | PN ---
Subjective Date of Service: 12/16/17 Interval History: Patient c/o pain both legs,can't walk much due to the pain. He is using his home dose of tramadol for pain. No chills or sweats. Social History: Findings - Single, lives alone at [facility], never , no children. Worked at [employer]. Brother Kavon Gasca is his SDM ([phone]). 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 Past Medical History: Findings - HTN, GERD, developmental delay, restless leg, hypothyroid Objective Active Medications: Buspirone HCl (Buspar Tab*) 20 mg PO TID [facility] Last Admin: 12/16/17 08:00 Dose: 20 mg Cyclobenzaprine HCl (Flexeril Tab*) 10 mg PO BID PRN PRN Reason: PAIN Last Admin: 12/16/17 07:58 Dose: 10 mg Ferrous Sulfate (Ferrous Sulfate Tab*) 325 mg PO BID [facility] Last Admin: 12/16/17 07:59 Dose: 325 mg Furosemide (Lasix Tab*) 40 mg PO DAILY [facility] Last Admin: 12/16/17 08:00 Dose: 40 mg Ceftriaxone Sodium 1 gm/ (Sodium Chloride) 50 mls @ 200 mls/hr IVPB Q24H [facility] Levothyroxine Sodium (Synthroid Tab*) 125 mcg PO DAILY@0600 [facility] Last Admin: 12/16/17 04:30 Dose: 125 mcg Lisinopril (Prinivil Tab*) 10 mg PO DAILY [facility] Last Admin: 12/16/17 08:00 Dose: 10 mg Lorazepam (Ativan Tab(*)) 2 mg PO Q6H PRN PRN Reason: ANXIETY Last Admin: 12/16/17 08:11 Dose: 2 mg Omeprazole (Prilosec Cap*) 40 mg PO BID@0730,1630 [facility] Last Admin: 12/16/17 08:43 Dose: 40 mg Pentoxifylline (Trental Cr Tab*) 400 mg PO TID [facility] Last Admin: 12/16/17 08:00 Dose: 400 mg Polyethylene Glycol/Electrolytes (Miralax*) 17 gm PO DAILY PRN PRN Reason: CONSTIPATION Rivaroxaban (Xarelto(*)) 15 mg PO DAILY [facility] Last Admin: 12/16/17 07:59 Dose: 15 mg Ropinirole HCl (Requip Tab*) 3 mg PO TID [facility] Last Admin: 12/16/17 07:58 Dose: 3 mg Sucralfate (Carafate*) 1 gm PO TID [facility] Last Admin: 12/16/17 07:58 Dose: 1 gm Tamsulosin HCl (Flomax Cap*) 0.4 mg PO BID [facility] Last Admin: 12/16/17 07:58 Dose: 0.4 mg Thioridazine HCl (Mellaril*) 50 mg PO BID [facility] Last Admin: 12/16/17 08:00 Dose: 50 mg Tramadol HCl (Ultram*) 100 mg PO Q8H PRN PRN Reason: PAIN Last Admin: 12/16/17 04:29 Dose: 100 mg Vital Signs - 8 hr 12/16/17 12/16/17 12/16/17 04:27 04:29 07:31 Temperature 98.0 F 98.9 F Pulse Rate 129 127 Respiratory 16 18 22 Rate Blood Pressure 117/68 122/72 (mmHg) O2 Sat by Pulse 92 93 Oximetry 12/16/17 12/16/17 12/16/17 07:38 07:58 08:00 Temperature Pulse Rate Respiratory 18 20 18 Rate Blood Pressure (mmHg) O2 Sat by Pulse Oximetry 12/16/17 12/16/17 12/16/17 08:11 11:10 11:42 Temperature 100.6 F Pulse Rate 127 Respiratory 18 18 Rate Blood Pressure 118/63 (mmHg) O2 Sat by Pulse 92 Oximetry 12/16/17 11:44 Temperature Pulse Rate Respiratory 18 Rate Blood Pressure (mmHg) O2 Sat by Pulse Oximetry Oxygen Devices in Use Now: None Appearance: Alert, partly up in bed. He was sleeping deeply when I entered the room but then c/o pain in his legs. Eyes: No Scleral Icterus Respiratory: Symmetrical Chest Expansion and Respiratory Effort, Clear to Auscultation, Clear to Percussion Cardiovascular: NL Sounds; No Murmurs; No JVD, RRR, No Edema, - Extremities: No Edema, No Clubbing, Cyanosis, - Skin: No Rash or Ulcers, No Nodules or Sclerosis, - - Feels warm Neurological: Alert and Oriented x 3, NL Sensation Result Diagrams: 12/15/17 14:10 12/15/17 14:10 Microbiology and Other Data: Microbiology 12/15/17 21:19 Nasal Screen MRSA (PCR)(YELENA) - Final Nasal Mrsa Not Detected Assess/Plan/Problems-Billing Assessment: - Patient Problems (1) Urinary retention Current Visit: No Status: Acute Code(s): R33.9 - RETENTION OF URINE, UNSPECIFIED SNOMED Code(s): 030744944 Comment: This also occurred in 03/2016. He will need to fup with a urologist as an outpt. Leg bag requested. (2) UTI (urinary tract infection) Current Visit: Yes Status: Acute Comment: Abnl U/A, leukocytosis. One dose cipro given in ED, 2 doses of cefuroxime to avoid QT prolongation, change to ceftriaxone 12/16. Not T 100.6 on 12/16. CBC, BMP, CRP 12/17. (3) Psychiatric disorder Current Visit: No Status: Acute Code(s): F99 - MENTAL DISORDER, NOT OTHERWISE SPECIFIED SNOMED Code(s): 40403094 Comment: Continue thioridazine-he will likely need to follow up with his primary psychiatrist as it is possible the thioridazine can cause urinary retention. (4) Hypothyroid Current Visit: Yes Status: Acute Code(s): E03.9 - HYPOTHYROIDISM, UNSPECIFIED SNOMED Code(s): 60191422 Comment: TSH wnl 10/21/17. Continue home levothyroxine. (5) Chronic GERD Current Visit: Yes Status: Acute Code(s): K21.9 - GASTRO-ESOPHAGEAL REFLUX DISEASE WITHOUT ESOPHAGITIS SNOMED Code(s): 922027506 Comment: Continue omeprazole. 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 Of the 7 LE US vein studies he had, all were neg except for one with a peroneal vein partially occluding thrombus. Continue rivaroxaban. (7) Bilateral leg pain Current Visit: Yes Status: Acute Code(s): M79.604 - PAIN IN RIGHT LEG; M79.605 - PAIN IN LEFT LEG SNOMED Code(s): 62819616 Comment: I suspect this is a chronic or recurring condition for which tramadol was prescribed. PT and OT evals requested.
[2017-12-16] MEDS: cefTRIAXone(*) 1 GM in NS 0.9% 50 ML* 50 ML IVPB SCH (13:33)
[2017-12-16] MEDS: Multivitamins/Minerals TAB PO SCH (16:43)
[2017-12-16] MEDS: oxyCODONE TAB* 5 MG TAB PO PRN ×2 (16:55→22:21)
[2017-12-17] MEDS: Levothyroxine TAB* 125 MCG TAB PO SCH (06:20)
[2017-12-17 06:26] LABS: ABS Basophils 0.1 10^3/ul (0-0.2); ABS Eosinophils 0.1 10^3/ul (0-0.6); ABS Lymphocytes 2.2 10^3/ul (1.0-4.8); ABS Monocytes 1.1 10^3/ul (0-0.8); ABS Neutrophils 9.7 10^3/ul (1.5-7.7); ABS Nucleated RBC 0 10^3/ul; Eosinophil % 0.8 % (0-6); Hematocrit 37 % (42-52); Hemoglobin 12.7 g/dl (14.0-18.0); Lymphocyte % 16.6 % (25-47); Mean Corpuscular HGB Conc 35 g/dl (31-36); Mean Corpuscular Hemoglobin 32 pg (27-31); Mean Corpuscular Volume 93 fL (80-94); Mean Platelet Volume 6.6 um3 (7.4-10.4); Nucleated Red Blood Cells % 0; Platelet Count 188 10^3/ul (150-450); Red Blood Count 3.97 10^6/ul (4.0-5.4); Red Cell Distribution Width 13 % (10.5-15); White Blood Count 13.2 10^3/ul (3.5-10.8)
[2017-12-17 06:37] LABS: EGFR Non-African American 70.6 (>60)
[2017-12-17] MEDS: Pentoxifylline CR TAB* 400 MG PO SCH ×3 (07:32→21:58)
[2017-12-17] MEDS: rOPINIRole TAB* 1 MG PO SCH ×3 (07:32→21:57)
[2017-12-17] MEDS: Rivaroxaban TAB(*) 15 MG PO SCH (07:33)
[2017-12-17] MEDS: Tamsulosin CAP* 0.4 MG PO SCH ×2 (07:33→21:58)
[2017-12-17] MEDS: THIORIDAZINE 50 MG PO SCH ×2 (07:33→21:58)
[2017-12-17] MEDS: Lisinopril TAB* 10 MG PO SCH (07:33)
[2017-12-17] MEDS: Furosemide TAB* 40 MG PO SCH (07:33)
[2017-12-17] MEDS: busPIRone TAB* 10 MG PO SCH ×3 (07:33→21:58)
[2017-12-17] MEDS: Sucralfate TAB* 1 GM PO SCH ×3 (07:33→21:58)
[2017-12-17] MEDS: Multivitamins/Minerals TAB PO SCH (07:33)
[2017-12-17] MEDS: Ferrous Sulfate TAB* 325 MG PO SCH ×2 (07:33→21:58)
[2017-12-17] MEDS: Omeprazole CAP* 20 MG PO SCH ×2 (07:33→15:53)
[2017-12-17] MEDS: Acetaminophen TAB* 325 MG PO PRN ×3 (07:39→21:59)
[2017-12-17] MEDS: LORazepam TAB(*) 1 MG PO PRN ×3 (07:57→21:59)
[2017-12-17] MEDS: cefTRIAXone(*) 1 GM in NS 0.9% 50 ML* 50 ML IVPB SCH (12:23)
[2017-12-17] MEDS: Magnesium Hydroxide LIQ* 30 ML UDC PO PRN (16:14)
--- NOTE | 2017-12-17 16:22 | PN ---
Subjective Date of Service: 12/17/17 Interval History: Pt states he is doing terrible today. He c/o pain all over his body. He states that is the only thing wrong with him at this time. Objective Active Medications: Acetaminophen (Tylenol Tab*) 650 mg PO Q6H PRN PRN Reason: FEVER Last Admin: 12/17/17 15:27 Dose: 650 mg Buspirone HCl (Buspar Tab*) 20 mg PO TID [facility] Last Admin: 12/17/17 12:19 Dose: 20 mg Cyclobenzaprine HCl (Flexeril Tab*) 10 mg PO BID PRN PRN Reason: PAIN Last Admin: 12/16/17 07:58 Dose: 10 mg Ferrous Sulfate (Ferrous Sulfate Tab*) 325 mg PO BID [facility] Last Admin: 12/17/17 07:33 Dose: 325 mg Furosemide (Lasix Tab*) 40 mg PO DAILY [facility] Last Admin: 12/17/17 07:33 Dose: 40 mg Ceftriaxone Sodium 1 gm/ (Sodium Chloride) 50 mls @ 200 mls/hr IVPB Q24H [facility] Last Admin: 12/17/17 12:23 Dose: 200 mls/hr Levothyroxine Sodium (Synthroid Tab*) 125 mcg PO DAILY@0600 [facility] Last Admin: 12/17/17 06:20 Dose: 125 mcg Lisinopril (Prinivil Tab*) 10 mg PO DAILY [facility] Last Admin: 12/17/17 07:33 Dose: 10 mg Lorazepam (Ativan Tab(*)) 2 mg PO Q6H PRN PRN Reason: ANXIETY Last Admin: 12/17/17 15:27 Dose: 2 mg Magnesium Hydroxide (Milk Of Magnesia Liq*) 30 ml PO Q6H PRN PRN Reason: CONSTIPATION Last Admin: 12/17/17 16:14 Dose: 30 ml Multivitamins/Minerals (Theragran/Minerals Tab*) 1 tab PO DAILY [facility] Last Admin: 12/17/17 07:33 Dose: 1 tab Omeprazole (Prilosec Cap*) 40 mg PO BID@0730,1630 [facility] Last Admin: 12/17/17 15:53 Dose: 40 mg Oxycodone HCl (Roxycodone Tab*) 2.5 mg PO Q4H PRN PRN Reason: PAIN Last Admin: 12/16/17 22:21 Dose: 2.5 mg Pentoxifylline (Trental Cr Tab*) 400 mg PO TID [facility] Last Admin: 12/17/17 12:19 Dose: 400 mg Polyethylene Glycol/Electrolytes (Miralax*) 17 gm PO DAILY PRN PRN Reason: CONSTIPATION Rivaroxaban (Xarelto(*)) 15 mg PO DAILY [facility] Last Admin: 12/17/17 07:33 Dose: 15 mg Ropinirole HCl (Requip Tab*) 3 mg PO TID [facility] Last Admin: 12/17/17 12:19 Dose: 3 mg Sucralfate (Carafate*) 1 gm PO TID [facility] Last Admin: 12/17/17 12:19 Dose: 1 gm Tamsulosin HCl (Flomax Cap*) 0.4 mg PO BID [facility] Last Admin: 12/17/17 07:33 Dose: 0.4 mg Thioridazine HCl (Mellaril*) 50 mg PO BID [facility] Last Admin: 12/17/17 07:33 Dose: 50 mg Tramadol HCl (Ultram*) 100 mg PO Q8H PRN PRN Reason: PAIN Last Admin: 12/16/17 12:39 Dose: 100 mg Vital Signs - 8 hr 12/17/17 12/17/17 12/17/17 09:03 11:02 15:27 Temperature 98.4 F Pulse Rate 108 Respiratory 16 18 19 Rate Blood Pressure 114/73 (mmHg) O2 Sat by Pulse 92 Oximetry 12/17/17 16:00 Temperature 97.6 F Pulse Rate 106 Respiratory 16 Rate Blood Pressure 114/68 (mmHg) O2 Sat by Pulse 95 Oximetry Oxygen Devices in Use Now: None Appearance: Elderly male lying in bed, NAD Eyes: No Scleral Icterus Ears/Nose/Mouth/Throat: Mucous Membranes Moist Respiratory: Symmetrical Chest Expansion and Respiratory Effort, Clear to Auscultation Cardiovascular: NL Sounds; No Murmurs; No JVD, RRR, No Edema Abdominal: NL Sounds; No Tenderness; No Distention Extremities: No Clubbing, Cyanosis, - - Pt c/o pain in his upper thighs when I ask him to sit up Skin: No Nodules or Sclerosis Neurological: Alert and Oriented x 3 Result Diagrams: 12/17/17 06:09 12/17/17 06:09 Microbiology and Other Data: Microbiology 12/15/17 21:19 Nasal Screen MRSA (PCR)([facility]) - Final Nasal Mrsa Not Detected Assess/Plan/Problems-Billing Mr Gasca is a 72 yo M who has a h/o urinary retention 2 years ago, HTN, cognitive impairment with psychiatric disorder, hypothyroidism and anxiety who presented to the ER with the inability to urinate and was found to be in urinary retention. - Patient Problems (1) Urinary retention Current Visit: Yes Status: Acute Code(s): R33.9 - RETENTION OF URINE, UNSPECIFIED SNOMED Code(s): 910054967 Comment: The patien harpreet an episode of urinary retention 03/2016. Unclear cause but he will need to follow up with urology as an outpatient. For now continue mccullough catheter. (2) UTI (urinary tract infection) Current Visit: Yes Status: Acute Comment: Urine has grown staph epidermidis. Will change to keflex to complete the course of therapy. (3) Bilateral leg pain Current Visit: Yes Status: Acute Code(s): M79.604 - PAIN IN RIGHT LEG; M79.605 - PAIN IN LEFT LEG SNOMED Code(s): 86606516 Comment: The patient continues to c/o bilateral leg pain. Will get lumbar spine x-rays. Continue PT/OT. Will continue tramadol for pain. Continue requip for RLS. (4) Chronic GERD Current Visit: Yes Status: Acute Code(s): K21.9 - GASTRO-ESOPHAGEAL REFLUX DISEASE WITHOUT ESOPHAGITIS SNOMED Code(s): 510932444 Comment: Continue omeprazole. (5) Hypothyroid Current Visit: Yes Status: Acute Code(s): E03.9 - HYPOTHYROIDISM, UNSPECIFIED SNOMED Code(s): 46134165 Comment: TSH in good range 10/21/17. Continue home dose of synthroid. (6) HTN (hypertension) Current Visit: Yes Status: Acute Code(s): I10 - ESSENTIAL (PRIMARY) HYPERTENSION SNOMED Code(s): 11178968 Comment: BP is under good control. Continue current does of lisinopril. (7) Psychiatric disorder Current Visit: Yes Status: Acute Code(s): F99 - MENTAL DISORDER, NOT OTHERWISE SPECIFIED SNOMED Code(s): 36755323 Comment: Continue thioridazine, buspar and ativan. (8) DVT prophylaxis Current Visit: Yes Status: Acute Code(s): QNN2278 - SNOMED Code(s): 422592508 Comment: SQ heparin (9) Full code status Current Visit: Yes Status: Acute Code(s): Z78.9 - OTHER SPECIFIED HEALTH STATUS SNOMED Code(s): 821207496
[2017-12-17] MEDS: traMADol TAB* 50 MG PO PRN (17:00)
--- NOTE | 2017-12-17 17:07 | RAD ---
INDICATION: Low back pain. COMPARISON: Comparison is made with a prior CT of the abdomen and pelvis from December 04, 2017. TECHNIQUE: AP and lateral films of the lumbar spine were obtained. FINDINGS: There is a mild lumbar scoliosis convex toward the right side. The vertebra are otherwise in normal alignment. There appears to be a mild compression fracture of the superior endplate of the L4 vertebral body which appears new from the prior exam. No other fractures are seen. There is mild to moderate degenerative disc disease at the L4-L5 level. The remaining disc spaces appear maintained. IMPRESSION: NEW MILD COMPRESSION FRACTURE OF THE SUPERIOR ENDPLATE OF THE L4 VERTEBRAL BODY.
[2017-12-17] MEDS: oxyCODONE TAB* 5 MG TAB PO PRN (22:00)
[2017-12-17] MEDS: Cyclobenzaprine TAB* 10 MG PO PRN (22:11)
[2017-12-18] MEDS: traMADol TAB* 50 MG PO PRN ×2 (05:54→13:10)
[2017-12-18] MEDS: Levothyroxine TAB* 125 MCG TAB PO SCH (05:55)
[2017-12-18] MEDS: Ferrous Sulfate TAB* 325 MG PO SCH ×2 (08:32→16:39)
[2017-12-18] MEDS: rOPINIRole TAB* 1 MG PO SCH ×3 (08:32→21:34)
[2017-12-18] MEDS: Tamsulosin CAP* 0.4 MG PO SCH ×2 (08:32→21:35)
[2017-12-18] MEDS: busPIRone TAB* 10 MG PO SCH ×3 (08:32→21:35)
[2017-12-18] MEDS: Acetaminophen TAB* 325 MG PO PRN ×2 (08:32→19:40)
[2017-12-18] MEDS: Multivitamins/Minerals TAB PO SCH (08:32)
[2017-12-18] MEDS: Magnesium Hydroxide LIQ* 30 ML UDC PO PRN (08:32)
[2017-12-18] MEDS: Sucralfate TAB* 1 GM PO SCH ×3 (08:32→21:34)
[2017-12-18] MEDS: Omeprazole CAP* 20 MG PO SCH ×2 (08:32→16:16)
[2017-12-18] MEDS: Pentoxifylline CR TAB* 400 MG PO SCH ×3 (08:33→21:34)
[2017-12-18] MEDS: Lisinopril TAB* 10 MG PO SCH ×2 (08:33→08:34)
[2017-12-18] MEDS: Rivaroxaban TAB(*) 15 MG PO SCH (08:33)
[2017-12-18] MEDS: THIORIDAZINE 50 MG PO SCH ×2 (08:33→21:35)
[2017-12-18] MEDS: Furosemide TAB* 40 MG PO SCH (08:33)
[2017-12-18] MEDS: LORazepam TAB(*) 1 MG PO PRN ×2 (08:33→19:39)
--- NOTE | 2017-12-18 12:29 | PN ---
Subjective Date of Service: 12/18/17 Interval History: Mr. Gasca continues to complain of low back pain and pain in his shoulders. He asks about the results of a recent outpatient left shoulder MRI which did show a tendon tear and effusion for which he will continue to follow up with Dr. Jara. His nurse notes that he has difficulty with transfers due to low back pain but that he has been able to ambulate around the entire unit today with a walker. He denies chest pain, SOB, nausea, or abdominal pain and is tolerating oral intake well. Objective Active Medications: Acetaminophen (Tylenol Tab*) 650 mg PO Q6H PRN Buspirone HCl (Buspar Tab*) 20 mg PO TID CELE Cyclobenzaprine HCl (Flexeril Tab*) 10 mg PO BID PRN Ferrous Sulfate (Ferrous Sulfate Tab*) 325 mg PO BID CELE Furosemide (Lasix Tab*) 40 mg PO DAILY CELE Ceftriaxone Sodium 1 gm/ (Sodium Chloride) 50 mls @ 200 mls/hr IVPB Q24H CELE Levothyroxine Sodium (Synthroid Tab*) 125 mcg PO DAILY@0600 CELE Lisinopril (Prinivil Tab*) 10 mg PO DAILY CELE Lorazepam (Ativan Tab(*)) 2 mg PO Q6H PRN Magnesium Hydroxide (Milk Of Magnesia Liq*) 30 ml PO Q6H PRN Multivitamins/Minerals (Theragran/Minerals Tab*) 1 tab PO DAILY CELE Omeprazole (Prilosec Cap*) 40 mg PO BID@0730,1630 CELE Oxycodone HCl (Roxycodone Tab*) 2.5 mg PO Q4H PRN Pentoxifylline (Trental Cr Tab*) 400 mg PO TID CELE Polyethylene Glycol/Electrolytes (Miralax*) 17 gm PO DAILY PRN Rivaroxaban (Xarelto(*)) 15 mg PO DAILY CELE Ropinirole HCl (Requip Tab*) 3 mg PO TID CELE Sucralfate (Carafate*) 1 gm PO TID CELE Tamsulosin HCl (Flomax Cap*) 0.4 mg PO BID CELE Thioridazine HCl (Mellaril*) 50 mg PO BID CELE Tramadol HCl (Ultram*) 100 mg PO Q8H PRN Vital Signs: Temp Pulse Resp BP Pulse Ox 97.9 F 98 16 145/88 96 06/12/18 07:30 12/18/17 07:30 12/18/17 10:34 12/18/17 07:30 12/18/17 07:30 Oxygen Devices in Use Now: None Appearance: Male sitting up in bed in NAD Eyes: No Scleral Icterus Ears/Nose/Mouth/Throat: Mucous Membranes Moist Neck: Trachea Midline Respiratory: Symmetrical Chest Expansion and Respiratory Effort, Clear to Auscultation Cardiovascular: NL Sounds; No Murmurs; No JVD, No Edema Abdominal: NL Sounds; No Tenderness; No Distention Lymphatic: No Cervical Adenopathy Extremities: No Edema Skin: No Rash or Ulcers Neurological: Alert and Oriented x 3, NL Muscle Strength and Tone Nutrition: Taking PO's Result Diagrams: 12/17/17 06:09 12/17/17 06:09 Microbiology and Other Data: . Assess/Plan/Problems-Billing Mr Gasca is a 72 yo M who has a h/o urinary retention 2 years ago, HTN, cognitive impairment with psychiatric disorder, hypothyroidism and anxiety who presented to the ER with the inability to urinate and was found to be in urinary retention. - Patient Problems (1) Low back pain Comment: Lumbar spine xray did find a L4 compression fracture. Continue PT/OT. Will continue tramadol for pain. Continue requip for RLS. (2) UTI (urinary tract infection) Comment: Urine has grown staph epidermidis. Will switch to doxycycline based on sensitivities. (3) Urinary retention Comment: The patient had an episode of urinary retention 03/2016. Unclear cause but he will need to follow up with urology as an outpatient. For now continue mccullough catheter. (4) HTN (hypertension) Comment: BP is under good control. Continue current does of lisinopril and furosemide. (5) Chronic GERD Comment: Continue omeprazole. (6) Current use of anticoagulant therapy Comment: Pt states he had a clot in his L leg. Of the 7 LE US vein studies he had, all were neg except for one with a peroneal vein partially occluding thrombus. Continue rivaroxaban. (7) Hypothyroid Comment: TSH in good range 10/21/17. Continue home dose of synthroid. (8) Psychiatric disorder Comment: Continue thioridazine, buspar and ativan. (9) DVT prophylaxis Comment: SQ heparin (10) Full code status Status and Disposition: Inpatient. Patient will likely need rehab due to difficulty with transfers. Reviewing with Tita.
[2017-12-18] MEDS: Cyclobenzaprine TAB* 10 MG PO PRN ×2 (16:16→21:43)
[2017-12-18] MEDS: oxyCODONE TAB* 5 MG TAB PO PRN (19:39)
[2017-12-18] MEDS: DOXYcycline CAP(*) 100 MG PO SCH (21:34)
[2017-12-19] MEDS: Levothyroxine TAB* 125 MCG TAB PO SCH (05:30)
[2017-12-19] MEDS: DOXYcycline CAP(*) 100 MG PO SCH (09:16)
[2017-12-19] MEDS: Tamsulosin CAP* 0.4 MG PO SCH (09:16)
[2017-12-19] MEDS: Sucralfate TAB* 1 GM PO SCH ×2 (09:16→14:17)
[2017-12-19] MEDS: Omeprazole CAP* 20 MG PO SCH (09:16)
[2017-12-19] MEDS: Multivitamins/Minerals TAB PO SCH (09:16)
[2017-12-19] MEDS: rOPINIRole TAB* 1 MG PO SCH ×2 (09:16→14:17)
[2017-12-19] MEDS: Rivaroxaban TAB(*) 15 MG PO SCH (09:16)
[2017-12-19] MEDS: Pentoxifylline CR TAB* 400 MG PO SCH ×2 (09:17→14:18)
[2017-12-19] MEDS: Lisinopril TAB* 10 MG PO SCH (09:18)
[2017-12-19] MEDS: busPIRone TAB* 10 MG PO SCH ×2 (09:18→14:18)
[2017-12-19] MEDS: Furosemide TAB* 40 MG PO SCH (09:18)
[2017-12-19] MEDS: THIORIDAZINE 50 MG PO SCH (09:18)
[2017-12-19] MEDS: LORazepam TAB(*) 1 MG PO PRN (09:26)
[2017-12-19] MEDS: Cyclobenzaprine TAB* 10 MG PO PRN (09:27)
[2017-12-19] MEDS: Ferrous Sulfate TAB* 325 MG PO SCH (10:57)
[2017-12-19] MEDS: oxyCODONE TAB* 5 MG TAB PO PRN (13:39)
--- NOTE | 2017-12-19 13:49 | DS ---
CC: Dr. Patel* DATE OF ADMISSION: 12/15/2017. DATE OF DISCHARGE: 12/19/2017. PRIMARY CARE PHYSICIAN: Dr. Patel. PRINCIPAL DIAGNOSES: 1. Urinary retention. 2. Staphylococcus epidermidis urinary tract infection. 3. Lumbar compression fracture. SECONDARY DIAGNOSES: 1. Hypertension. 2. GERD. 3. Developmental delay. 4. Restless leg syndrome. 5. Hypothyroidism. DISCHARGE MEDICATIONS: 1. Ativan 2 mg p.o. q.6 hours prn anxiety. 2. Tramadol 100 mg p.o. q.8 hours prn pain. 3. MiraLax 17 gm p.o. daily prn constipation. 4. Zofran 4 mg p.o. q.6 hours prn nausea. 5. Flexeril 10 mg p.o. b.i.d. prn spasm. 6. Requip 3 mg p.o. t.i.d. 7. Omeprazole 40 mg p.o. b.i.d. 8. Carafate 1 gm p.o. t.i.d. 9. Pentoxifylline 400 mg p.o. t.i.d. 10. Xarelto 15 mg p.o. daily. 11. Lisinopril 10 mg p.o. daily. 12. Ferrous Sulfate 325 mg p.o. b.i.d. 13. Levothyroxine 125 mcg p.o. daily. 14. Tamsulosin 0.4 mg p.o. b.i.d. 15. Furosemide 40 mg p.o. daily. 16. Buspirone 20 mg p.o. t.i.d. 17. Thioridazine 50 mg p.o. b.i.d. 18. Doxycycline 100 mg p.o. t.i.d. times 8 more doses. HOSPITAL COURSE: Mr. Gasca is a 72-year-old male who presented to the emergency room on 12/15/2017 with complaints of the inability to urinate. The patient had last urinated on the evening prior to admission. A bladder scan was performed and he had over 600 ml of urine noted within the bladder. A Flynn catheter was inserted. In addition to the urinary retention, the patient was also found to have a staphylococcus epidermidis urinary tract infection. His white blood cell count was elevated on admission and has since trended down. He initially had a fever and this too has resolved. The patient has been on antibiotic therapy since admission. The patient will complete eight more doses of Doxycycline. The patient will need to follow-up with Urology as an outpatient. He is being discharged with the Flynn catheter in place. Of note, the patient had an episode of urinary retention in 2016 for which he followed with Urology. On 12/17/2017, the patient was complaining of severe pain all over. We discussed getting x-rays of his lumbar spine which were obtained. They revealed a small, mild compression fracture of the superior endplate of the L4 vertebral body. I suspect this explains at least a portion of the patient's back pain. Of note, the patient frequently complains of pain per his brother. He will continue with his prn Tramadol. Mobility became an issue and therefore subacute rehab was recommended. The patient has accepted a bed offer at [facility] for subacute therapy. PHYSICAL EXAMINATION: On the day of discharge, the patient was awake, alert, and oriented, sitting on the edge of the bed eating lunch, in no acute distress. Cardiac: Exam reveals a normal S1, S2 with a regular rate and rhythm. Lungs: Clear. Abdomen: Soft, nontender, nondistended. The patient moves all four extremities symmetrically. FOLLOW-UP CONCERNS: The patient is being discharged to [facility] today, . ACTIVITY LEVEL: As tolerated. DIET: Regular. CONDITION ON DISCHARGE: Stable. Thirty-five minutes were spent discharging this patient. [id number]/[facility] #: [id number] MADHAVI
[2017-12-19] MEDS: traMADol TAB* 50 MG PO PRN (14:17)
[2017-12-19 15:05] VITALS: BP 113/75
== END 2017-12-19 16:05 | DRG 690 ==
LOC: ED 08:53 → MED 18:59 → OBSVTOIN 12-16 12:20
PROVIDERS: ADMIT Internal Medicine; ATTEND Hospitalist
PROC: 0T9B70Z Drainage of Bladder with Drainage Device, Via Natural or Artificial Opening (ICD-10-PCS; principal; 2017-12-16)
DX: N39.0 Urinary tract infection, site not specified (principal); M48.56XA Collapsed vertebra, not elsewhere classified, lumbar region, initial encounter for fracture; R33.9 Retention of urine, unspecified; K57.90 Diverticulosis of intestine, part unspecified, without perforation or abscess without bleeding; E78.00 Pure hypercholesterolemia, unspecified; I10 Essential (primary) hypertension; I73.9 Peripheral vascular disease, unspecified; R05 Cough; K21.9 Gastro-esophageal reflux disease without esophagitis; N40.0 Benign prostatic hyperplasia without lower urinary tract symptoms; M19.90 Unspecified osteoarthritis, unspecified site; F41.9 Anxiety disorder, unspecified; E03.9 Hypothyroidism, unspecified; G25.81 Restless legs syndrome; R62.50 Unspecified lack of expected normal physiological development in childhood; M79.605 Pain in left leg; M79.604 Pain in right leg; R00.0 Tachycardia, unspecified; B95.7 Other staphylococcus as the cause of diseases classified elsewhere; G31.84 Mild cognitive impairment of uncertain or unknown etiology; Z82.49 Family history of ischemic heart disease and other diseases of the circulatory system; Z87.891 Personal history of nicotine dependence; Z88.5 Allergy status to narcotic agent; Z86.73 Personal history of transient ischemic attack (TIA), and cerebral infarction without residual deficits; Z88.8 Allergy status to other drugs, medicaments and biological substances; Z79.01 Long term (current) use of anticoagulants; Z85.828 Personal history of other malignant neoplasm of skin
CPT/HCPCS: 36415; 71045; 72100; 74019; 80048; 80053; 81003; 81015; 82550; 83690; 83735; 84484; 85025; 86140; 87040; 87077; 87086; 87186; 87641; 93005; 99283; A9270-GY; G0378; G8978-GP-CJ; G8979-GP-CI; G8987-GO-CJ; G8988-GO-CI; J0696

== ENCOUNTER 2017-12-21 12:41 | Emergency (ER) | payer MEDICARE, MEDICAID ==
[2017-12-21 13:11] LABS: ABS Basophils 0.2 10^3/ul (0-0.2); ABS Eosinophils 0.2 10^3/ul (0-0.6); ABS Lymphocytes 2.5 10^3/ul (1.0-4.8); ABS Monocytes 0.7 10^3/ul (0-0.8); ABS Neutrophils 10.1 10^3/ul (1.5-7.7); ABS Nucleated RBC 0 10^3/ul; Eosinophil % 1.4 % (0-6); Hematocrit 45 % (42-52); Lymphocyte % 18.2 % (25-47); Mean Corpuscular HGB Conc 34 g/dl (31-36); Mean Corpuscular Hemoglobin 31 pg (27-31); Mean Corpuscular Volume 93 fL (80-94); Mean Platelet Volume 6.1 um3 (7.4-10.4); Nucleated Red Blood Cells % 0; Platelet Count 309 10^3/ul (150-450); Red Blood Count 4.79 10^6/ul (4.00-5.40); Red Cell Distribution Width 13 % (10.5-15); White Blood Count 13.7 10^3/ul (3.5-10.8)
[2017-12-21 13:30] LABS: EGFR Non-African American 60.4 (>60)
[2017-12-21] MEDS ORDERED: NS 0.9% 1000 ML* 1,000 ML IV ONE (13:31)
[2017-12-21 13:51] LABS: Urine Appearance Cloudy; Urine Blood 3+ (Negative); Urine Color Yellow; Urine Ketones Negative (Negative); Urine Protein Negative (Negative); Urine Specific Gravity 1.012 (1.010-1.030); Urine Urobilinogen Negative (Negative)
--- NOTE | 2017-12-21 13:54 | RAD ---
INDICATION: Chest and abdominal pain COMPARISON: December 15, 2017 TECHNIQUE: PA and lateral dual-energy views were obtained. FINDINGS: Bones/Soft Tissues: There are no acute bony findings. Cardiomediastinal: The cardiomediastinal silhouette is normal. Lungs: There are no acute infiltrates. There are mild chronic, basilar interstitial changes. Pleura: There are no pleural effusions. Other: None IMPRESSION: MILD CHRONIC BASILAR CHANGES. NO ACTIVE DISEASE.
--- NOTE | 2017-12-21 13:55 | RAD ---
HISTORY: Abdominal pain COMPARISONS: December 15, 2017 VIEWS: Frontal supine and upright views of the abdomen. FINDINGS: BOWEL: There is a nonobstructive bowel gas pattern. There is a large amount of stool within the colon. CALCULI: There are no abnormal calculi. BONES AND SOFT TISSUES: There is a scoliotic curvature of the spine. 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 OTHER FINDINGS: The lung bases are clear. There is no subphrenic gas. IMPRESSION: NONOBSTRUCTIVE BOWEL GAS PATTERN. LARGE AMOUNT OF STOOL THROUGHOUT THE COLON.
[2017-12-21] MEDS ORDERED: Ciprofloxacin TAB* 500 MG PO ONE (15:20)
[2017-12-21] MEDS ORDERED: Polyethylene Glycol 3350* 17 GM PACKET PO PRN (15:22)
[2017-12-21] MEDS ORDERED: Ondansetron ODT TAB* 4 MG PO ONE (19:17)
[2017-12-21] MEDS ORDERED: Ondansetron ODT TAB* 4 MG ONE (19:18)
[2017-12-21 20:22] VITALS: BP 113/82
--- NOTE | 2017-12-24 10:32 | ED ---
Valeriy Talbert Angela, scribed for Bharath Moseley MD on 12/21/17 at 1302 . Abdominal Pain/Male - HPI Summary HPI Summary: This pt is a 72 y/o male presenting to [facility] via EMS from [facility] for abdominal pain. Pt reports he has hx of hiatal hernia. He additionally notes nausea, vomiting, chest pain, SOB. Pt notes he feels dizziness when ambulating. He has a catheter in place. Per EMS pt has not taken Thioridazine medication since 2 days ago. EMS reports that upon arriving to scene, nurse stated she thinks the pt might have undiagnosed schizophrenia. Per EMS pt is alert and oriented x3 and knows he has not been taking his psych medications. PMHx includes hernia, GERD, hypothyroid, urinary retention. Pt was [place] [facility] [place] 12/15/17 for urinary retention. - History of Current Complaint Stated Complaint: MHE Time Seen by Provider: 12/21/17 12:44 Hx Obtained From: Patient Onset/Duration: Still Present Timing: Lasting Days Severity Currently: Moderate Location: Epigastric Radiates: No Aggravating Factor(s): Nothing Alleviating Factor(s): Nothing Associated Signs And Symptoms: Positive: Chest Pain, Dizzy - when ambulating, Nausea, Vomiting, Other - POS: SOB. Negative: Fever - Allergies/Home Medications Allergies/Adverse Reactions: Allergies Allergy/AdvReac Type Severity Reaction Status Date / Time codeine Allergy Unknown Verified 12/05/17 08:52 Reaction Details ibuprofen Allergy Unknown Verified 12/05/17 08:52 Reaction Details morphine Allergy Unknown Verified 12/05/17 08:52 Reaction Details rosuvastatin [From Crestor] Allergy Unknown Verified 12/05/17 08:52 Reaction Details PMH/Surg Hx/FS Hx/Imm Hx Endocrine/Hematology History: Reports: Hx Thyroid Disease Denies: Hx Diabetes Cardiovascular History: Reports: Hx Angina, 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, Hx Hypercholesterolemia, Hx Hypertension, Hx Peripheral Vascular Disease, Other Cardiovascular Problems/Disorders - CHRONIC TACHYCARDIA Denies: Hx Angioplasty, Hx Congestive Heart Failure, Hx Embolism, Hx Pacemaker/ICD Respiratory History: Reports: Other Respiratory Problems/Disorders - chronic cough Denies: Hx Asthma, Hx Chronic Obstructive Pulmonary Disease (COPD), Hx Lung Cancer, Hx Pleural Effusion, Hx Pulmonary Edema, Hx Pulmonary Embolism, Hx Seasonal Allergies, Hx Sleep Apnea GI History: Reports: Hx Gastroesophageal Reflux Disease, Hx Hiatal Hernia, Other GI Disorders Denies: Hx Irritable Bowel History: Reports: Hx Benign Prostatic Hyperplasia, Other Problems/ Disorders - [place] Denies: Hx Dialysis, Hx Kidney Infection, Hx Kidney Stones, Hx Renal Disease Musculoskeletal History: Reports: Hx Arthritis, Hx Back Problems Sensory History: Reports: Hx Contacts or Glasses, Hx Eye Injury Denies: Hx Cataracts, Hx Glaucoma, Hx Hearing Aid Opthamlomology History: Reports: Hx Contacts or Glasses, Hx Eye Injury Denies: Hx Cataracts, Hx Glaucoma Neurological History: Reports: Hx Developmental Delay, Hx Headaches, Hx Transient Ischemic Attacks (TIA), Other Neuro Impairments/Disorders - speech impediment Denies: Hx Migraine, Hx Seizures, Hx Spinal Cord Injury Psychiatric History: Reports: Hx Anxiety, Other Psychiatric Issues/Disorders Denies: Hx Depression, Hx Panic Disorder - Cancer History Cancer Type, Location and Year: Skin cancer 1999 - Surgical History Surgery Procedure, Year, and Place: None - Immunization History Date of Tetanus Vaccine: up to date Date of Influenza Vaccine: utd Infectious Disease History: Denies: Hx of Known/Suspected MRSA, Traveled Outside the [place] in Last 30 Days - Family History Known Family History: Positive: Cardiac Disease, Hypertension Negative: Diabetes - Social History Alcohol Use: None Hx Substance Use: No Substance Use Type: Reports: None Hx Tobacco Use: Yes Smoking Status (MU): Former Smoker Type: Cigarettes Have You Smoked in the Last Year: No Review of Systems Negative: Fever, Chills Positive: Chest Pain Positive: Shortness Of Breath Positive: Abdominal Pain, Vomiting, Nausea Neurological: Other - POS: dizziness All Other Systems Reviewed And Are Negative: Yes Physical Exam - Summary Physical Exam Summary: VITAL SIGNS: Reviewed. GENERAL: Patient is an elderly male who seems to be without any distress. Patient is not in any acute respiratory distress. HEAD AND FACE: Normocephalic and atraumatic. EYES: PERRLA, EOMI x 2, No injected conjunctiva. EARS: Hearing grossly intact. Ear canals and tympanic membranes are WNL. MOUTH: Oropharynx within normal limits. NECK: Supple, trachea is midline, no adenopathy, no JVD. CHEST: Symmetric, no tenderness at palpation LUNGS: Clear to auscultation bilaterally. No wheezing or crackles. CVS: RRR, S1 and S2 present, no murmurs or gallops appreciated. ABDOMEN: Soft. Mild tenderness in the epigastric area. No signs of distention. Positive bowel sounds. No rebound no guarding, and no masses palpated. No abdominal bruit or pulsations. EXTREMITIES: FROM in all major joints, no edema, no cyanosis or clubbing. NEURO: Alert and oriented x 3. No acute neurological deficits. Speech is normal. SKIN: Dry and warm Triage Information Reviewed: Yes Vital Signs Reviewed: Yes Diagnostics - Laboratory Result Diagrams: 12/21/17 13:06 12/21/17 13:06 Lab Statement: Any lab studies that have been ordered have been reviewed, and results considered in the medical decision making process. - Radiology Abdomen XR Xray Interpretation: Positive (See Comments) - IMPRESSION: Nonobstructive bowel gas pattern. Large amount of stool throughout the colon. Dr. Moseley has reviewed this radiology report. Radiology Interpretation Completed By: Radiologist Chest XR Xray Interpretation: Positive (See Comments) - IMPRESSION: Mild chronic basilar changes. No active disease. Dr. Moseley has reviewed this radiology report. Radiology Interpretation Completed By: Radiologist Re-Evaluation - Re-Evaluation First Eval Re-Evaluation Time: 16:10 Comment: Pt does not want to return to [facility]. farmworker animal will be consulted. Second Eval Re-Evaluation Time: 17:40 Comment: farmworker animal states pt will need to go back to [facility] and discuss rearrangement of nursing homes with them. Abdominal Pain Fem Course/Dx - Course Assessment/Plan: Pt is a 72 y/o male who presents with abdominal pain. Pt reports he has hx of hiatal hernia. He additionally notes nausea, vomiting, chest pain, SOB. Pt notes he feels dizziness when ambulating. He has a catheter in place. Per EMS pt has not taken Thioridazine medication since 2 days ago. Test results without any significant abnormalities except for WBC of 13.7, creatinine of 1.19. Urinalysis is positive for UTI. Abdomen XR shows nonobstructive bowel gas pattern. Large amount of stool throughout the colon. Chest XR reveals mild chronic basilar changes. No active disease. I believe the pt has lower abdominal pain probably secondary to his UTI and constipation. Pt was given ciprofloxacin, IV fluids, and Miralax. [facility]CP. He will be given prescriptions for Ciprofloxacin and Miralax. I discussed all the findings and test results with the patient. There were no further complaints or concerns. He is instructed to return to the ED for any worsening or new symptoms. Pt did not want to be discharged to [facility] therefore director of social services was consulted. farmworker animal reports the pt will have to go back to [facility] and if he wants to change nursing homes pt will need to speak with them for re- arrangement. He understands and agrees. Pt is hemodynamically stable, alert and oriented x3. - Diagnoses Provider Diagnoses: Constipation, UTI (urinary tract infection) Discharge - Sign-Out/Discharge Documenting (check all that apply): Discharge/Admit/Transfer - Discharge - Discharge Plan Condition: Stable Disposition: HOME Prescriptions: Ciprofloxacin TAB* [Cipro 500 MG TAB*] 500 mg PO BID #6 tab Polyethylene Glycol 3350* [Miralax*] 17 gm PO DAILY #12 packet Patient Education Materials: Constipation (ED), Urinary Tract Infection in Men (ED) Referrals: Liam Patel MD [Primary Care Provider] - 3 Days Additional Instructions: Please follow up with your primary care provider. RETURN TO THE ED FOR ANY NEW OR WORSENING SYMPTOMS. The documentation as recorded by the Valeriy turner Angela accurately reflects the service I personally performed and the decisions made by me, Bharath Moseley MD.
== END 2017-12-21 20:41 | disposition home or self-care (01) ==
LOC: ED 12:41
DX: N39.0 Urinary tract infection, site not specified (principal); K59.00 Constipation, unspecified; J84.9 Interstitial pulmonary disease, unspecified; R11.2 Nausea with vomiting, unspecified; R07.9 Chest pain, unspecified; R06.02 Shortness of breath; K44.9 Diaphragmatic hernia without obstruction or gangrene; K21.9 Gastro-esophageal reflux disease without esophagitis; E03.9 Hypothyroidism, unspecified; R33.9 Retention of urine, unspecified; Z86.79 Personal history of other diseases of the circulatory system; Z87.891 Personal history of nicotine dependence; Z88.5 Allergy status to narcotic agent; Z88.6 Allergy status to analgesic agent; Z88.8 Allergy status to other drugs, medicaments and biological substances
CPT/HCPCS: 36415; 71046; 74019; 80053; 80307; 80320; 80329; 81003; 81015; 84443; 85025; 87086; 99283; A9270-GY; G0480

== ENCOUNTER 2018-01-18 22:37 | Emergency (ER) | payer MEDICARE, MEDICAID ==
--- OUTSIDE RECORDS SUMMARY | 2018-01-18 23:08 | XMS REPORT ---
:1945 External Reference #:[id number] Author Organization [facility] Address [address] [place] [address] Phone [phone] Care Team Providers Name Role Phone Liam Patel MD Primary Care Physician Unavailable Payers Type Date Identification Numbers Payment Provider Subscriber Medicare Primary Effective: Policy Number: Medicare Harinder Gasca 2000 [id number] PayID: [id number] [address] [place] [address] [place] Policy Number: [id number] Medicaid Harinder Gasca PayID: [id number] [address] [place] [address] Problems Date Description Provider Status Onset: 07/22/2012 Tachycardia Annamaria Moreno M.D. Active Onset: 07/22/2012 Mixed hyperlipidemia Annamaria Moreno M.D. Active Onset: 07/22/2012 Benign essential hypertension Annamaria Moreno M.D. Active Onset: 07/22/2012 Palpitations Annamaria Moreno M.D. Active Onset: 07/22/2012 Dyspnea Annamaria Moreno M.D. Active Onset: 01/27/2015 Localized, primary osteoarthritis Ted Núñez M.D. Active of the shoulder region Onset: 08/03/2017 Achilles bursitis Sal Ramon MD Active Onset: 08/03/2017 Localized, primary osteoarthritis Sal Ramon MD Active of the ankle and/or foot Onset: 09/28/2017 Plantar fascial fibromatosis Sal Ramon MD Active Onset: 09/28/2017 Stress fracture of metatarsal Sal Ramon MD Active bone Onset: 11/27/2017 Strain of vinnie/tend the rotator Fady Jara MD Active cuff of left shoulder, subs Onset: 11/27/2017 Strain of vinnie/tend the rotator Fady Jara MD Active cuff of right shoulder, subs Family History Date Family Member(s) Problem(s) Comments General Diabetes General Heart Disease : (age 78 Years) Father due to Liver Disease : (age 67 Years) Mother due to Stroke Mother due to [place] () Siblings 1 First Brother Alive And Well Second Brother Alive And Well Social History Type Date Description Comments Marital Status Single Lives [facility] [place] Occupation Retired ETOH Use Denies alcohol use Smoking Patient is a former smoker quite years ago, 1973, prior to that, off and on smoker for 10 years Recreational Drug Use Denies Drug Use Exercise Type/Frequency Exercises regularly Allergies, Adverse Reactions, Alerts Date Description Reaction Status Severity Comments 11/03/2004 Codeine active h/a,nausea 03/24/2005 Welchol active aches 01/27/2015 Ibuprofen active 01/27/2015 Morphine active 02/23/2017 Rosuvastatin active 02/23/2017 Latex active 02/23/2017 Rosuvastatin active Medications Medication Date Status Form Strength Qnty SIG Indications Ordering Provider Potassium 11/09/ Active Tablets ER 20Meq 30tabs Take 2 I49.1 Sherrie Michael Chloride ER 2018 tabs Foster, daily N.P. for 3 days then 1 tab daily Furosemide 11/09/ Active Tablets 40mg 30tabs 1 by Sherrie Michael 2018 mouth Foster, every N.P. day Lisinopril / Active Tablets 10mg 30tabs 1 po qd Unknown 0000 Trental / Active Tablets ER 400mg tid Unknown 0000 Ferrous Sulfate / Active Tablets 325(65Fe) 1 by Unknown 0000 mg mouth bid Multivitamin / Active Tablets 1 by Unknown 0000 mouth every day Thioridazine HCL / Active Tablets 25mg 1 tab po Unknown 0000 tid Aspirin Ec Low / Active Tablets DR 325mg 1 by Unknown Dose 0000 mouth every day Tamsulosin HCL / Active Capsules 0.4mg 1 by Unknown 0000 mouth daily Ropinirole HCL / Active Tablets 3mg 3 by Unknown 0000 mouth three times daily Pentoxifylline ER / Active Tablets ER 400mg take one Unknown 0000 capsule/ tablet daily by mouth Sucralfate / Active Tablets 1gm 1 by Unknown 0000 mouth three times a day Omeprazole / Active Capsules 40mg [address] mouth every day Buspirone HCL / Active Tablets 15mg 1 tablet Unknown 0000 three times daily. Ondansetron HCL / Active Tablets 4mg one by Unknown 0000 mouth every 8 hours as needed for nausea Cyclobenzaprine / Active Tablets 10mg 1 tablet Unknown HCL 0000 by mouth bid prn Levothyroxine / Active Tablets 125mcg 1 by Unknown Sodium 0000 mouth every day Tramadol HCL / Active Tablets 50mg 1-2 Unknown 0000 tablets every 6 hours as needed Miralax / Active Powder 3350NF 17 gm Unknown 0000 every day mixed w/ 8 oz water/ju ice Ativan / Active Tablets 1mg take 1 Unknown 0000 tablet 45 min prior to mri, may repeat 1 x before mri if remains anxious. do not drive after taking Xarelto / Active Tablets 15mg 1 by Unknown 0000 mouth every day Doxycycline / Active Tablets 100mg 2 by Unknown Monohydrate 0000 mouth daily Tamsulosin HCL / Active Capsules 0.4mg Darlow, 0000 Liam Oliveros MD Cardizem 10/09/ Hx Tablets 30mg 90tabs 1 by Annamaria 2018 - mouth S. 11/08/ three [facility] 2018 times a , M.D. 11/06/17 Hold ([facility] aware) Tramadol HCL 02/23/ Hx Tablets 50mg 60tabs 2 M19.011 Zaneb 2016 - tablets Yaseen, 04/09/ every 8 MD 2016 hours as needed Horizant 01/25/ Hx Tablets ER 300mg 30tabs [address] [facility] Benny Hurley - Fran, 08/21/ M.D. 2018 Ondansetron HCL 12/11/ Hx Tablets 8mg 90tabs 1 by Benny Hurley - mouth Fran, 08/22/ three M.D. 2018 times a day as needed nausea Ondansetron HCL 10/12/ Hx Tablets 8mg 90tabs 1 by G25.81 Benny Rodriguez 2015 - mouth Fran, 12/07/ nimisha Metcalf 2017 times a day as needed nausea R11.0 Gabapentin 09/25/2013 - Hx Capsules 300mg 60caps 1 po qhs for 1 Benny Rodriguez 10/28/2013 wk then 1 at [employer] [place], 6PM and 1 at M.D. hs Dilaudid 03/05/2013 - Hx Tablets 2mg 10tabs 1 tab po bid Ted 08/20/2013 prn pain Tea Núñez Ultram 02/28/2013 - Hx Tablets 50mg 60tabs sig 1 to 2 Ted 03/05/2013 tabs tid prn, [place], take with 2 ES M.D. tylenol Percocet 01/10/2013 - Hx Tablets 5-325mg 60tabs take 1-2 tabs Les Cunningham, 02/04/2013 po tid prn M.D. pain [place] 01/03/2013 - Hx Tablets 5-325mg 30tabs take 1-2 tab Les Cunningham, 02/04/2013 po tid prn M.D. pain Ibuprofen 01/03/2013 - Hx Tablets 600mg 90tabs 1 po tid prn Les Cunningham, 08/20/2013 pain and M.D. inflammation Tramadol HCL ER 12/31/2012 - Hx Caps ER 150mg 40caps take 1 po bid Les Cunningham 02/28/2013 24HR prn pain M.D. Ropinirole HCL 11/08/2012 - Hx Tablets 3mg 270tabs 3 tabs by Benny Rodriguez 01/26/2015 mouth three Fran, times a day M.D. Ropinirole HCL 08/19/2012 - Hx Tablets 5mg 90tabs 1 tab by mouth Salome Horta 11/08/2012 three times a Marga, day as MJoanna directed Ropinirole HCL 04/30/2012 - Hx Tablets 5mg 90tabs 1 tab by mouth Salome Horta 07/19/2012 three times a Stackman, raza M.D. Zetia 03/24/2005 - Hx Tablets 10mg 30tabs 1 po qd Josh Patel 07/19/2012 Tea Duvall Zetia 01/02/2005 - Hx Tablets 10mg 30tabs 1 po qod Josh JosieCecille 03/24/2005 Tea Duvall Welchol 11/03/2004 - Hx Tablets 625mg 270tabs 6 po qpm with Josh Patel 03/24/2005 meals Tea Duvall Mellaril 11/02/2004 - Hx Tablets 50mg 60tabs 2 PO bid Josh JosieCecille 12/07/2016 Tea Duvall Prilosec 11/02/2004 - Hx Capsules 20mg 60caps 1 PO qd Josh JosieCecille 07/19/2012 Tea Duvall Lescol XL 11/02/2004 - Hx Tablets 80mg 30tabs 1 PO qd Josh Patel 07/19/2012 Tea Duvall Zetia 11/02/2004 - Hx Tablets 10mg 90tabs 1 po qd Josh Patel 11/03/2004 Tea Duvall Advair Diskus 11/02/2004 - Hx Inhaler 500mcg; 1 PO bid Josh JosieCecille 07/19/2012 50mcg Tea Duvall Proventil 11/02/2004 - Hx Aerosol 90mcg/D as Directed Josh Patel 07/19/2012 ose Tea Duvall Vitamins Multiple 11/02/2004 - Hx Caplets 30caps 1 PO qd Josh JosieCecille 07/19/2012 Tea Duvall Carafate - Hx Tablets 1gm 30tabs 1 po tid prn Unknown 07/22/2012 Nexium - Hx Capsules 40mg 90caps 1 po bid Unknown 12/07/2016 125 mcg - Hx Tablets 137mcg 30tabs 1 po qd Unknown 07/17/2017 Simvastatin - Hx Tablets 40mg 90tabs 1 po qhs Unknown 07/22/2012 Ibuprofen - Hx Tablets 400mg 180tabs 1 bid prn Unknown 11/09/2014 Prochlorperazine - Hx Tablets 10mg 30tabs 1 q8h as Unknown Maleate 10/13/2015 needed Requip - Hx Tablets 4mg 90tabs 1 po tid Unknown 08/19/2012 Flexeril - Hx Tablets 10mg 90tabs 1 po tid prn Unknown 12/01/2015 Crestor - Hx Tablets 5mg 90tabs 1 po qd Unknown 12/07/2016 Compazine 10MG - Hx t.i.d Unknown 10/28/2013 Celecoxib - Hx Capsules 200mg 400 mg daily Unknown 01/26/2015 Celebrex - Hx Capsules 200mg 2 capsules Unknown 05/26/2015 daily Compazine - Hx Tablets 10mg 1 every 6 Unknown 12/01/2015 hours as needed nausea Requip - Hx Tablets 3mg 540tabs 3 tabs by Eulogio 08/21/2017 mouth three Tea Walker times a day Carisoprodol - Hx Tablets 250mg Take 1 Tab 3 Unknown 02/22/2017 Times A Day as Needed Ibuprofen - Hx Tablets 200mg as needed Unknown 08/21/2017 Furosemide - Hx Tablets 40mg 1 by mouth Unknown 11/08/2017 every day Famotidine - Hx Tablets 40mg 1 by mouth bid Unknown 08/27/2017 Antioxidant - Hx Capsules 1 by mouth Unknown Formula 02/22/2017 twice a day Acetaminophen - Hx Tablets 500mg 1-2 tabs 3x a Unknown 11/09/2017 day as needed Medications Administered in Office Medication Date Status Form Strength Qnty SIG Indications Ordering Provider Depomedrol 40MG 01/03/ Administered Injection Ewelina 2018 Tea Salvador Depomedrol 40MG 01/03/ Administered Injection Ewelina 2018 Tea Salvador Triamcinolone 12/27/ Administered Injection Zaneb (Kenalog) 2017 MD Marek Triamcinolone 12/27/ Administered Injection Zaneb (Kenalog) 2017 MD Marek Technetium TC 09/27/ Administered Injection Qutaybeh S. 99M 2017 Duglas Moreno M.D. Per Unit Dose Up To 40 Millicuries Triamcinolone 08/28/ Administered Injection Zaneb (Kenalog) 2017 MD Marek Triamcinolone 08/28/ Administered Injection Zaneb (Kenalog) 2017 MD Marek Triamcinolone 05/29/ Administered Injection Zaneb (Kenalog) 2016 MD Marek Triamcinolone 05/29/ Administered Injection Zaneb (Kenalog) 2016 MD Marek Triamcinolone 02/23/ Administered Injection Zaneb (Kenalog) 2016 MD Marek Triamcinolone 02/23/ Administered Injection Zaneb (Kenalog) 2016 MD Marek Dexamethasone 12/26/ Administered Injection Arturo F Sodium 2016 MD Cuauhtemoc Phosphate, 1 MG Dexamethasone 12/26/ Administered Injection Arturo F Sodium 2016 MD Cuauhtemoc Phosphate, 1 MG Depomedrol 80MG 01/27/ Administered Injection Ted 2014 Tea Núñez Depomedrol 80MG 04/10/ Administered Injection Ted 2012 Tea Núñez Depomedrol 80MG 12/26/ Administered Injection Les 2012 Tea Cunningham Depomedrol 80MG 12/26/ Administered Injection Les 2012 Tea Cunningham Depomedrol 80MG 08/09/ Administered Injection Les 2012 Tea Cunningham Depomedrol 80MG 03/19/ Administered Injection Les 2011 Tea Cunningham Depomedrol 80MG 03/19/ Administered Injection Les 2011 Tea Cunningham Depomedrol 80MG 11/22/ Administered Injection Les 2011 Tea Cunningham Depomedrol 80MG 09/13/ Administered Injection Les 2011 Tea Cunningham Depomedrol 80MG 09/13/ Administered Injection Les 2011 Tea Cunningham Depomedrol 80MG 06/14/ Administered Injection Dirk Zoraida, 2010 Tea Depomedrol 80MG 06/14/ Administered Injection Dirk Zoraida, 2010 Tea Depomedrol 80MG 04/03/ Administered Injection Dirk Zoraida, 2010 Tea Vital Signs Date Vital Result Comment 01/08/2018 Height 70 inches 5'10" Weight 170.00 lb BP Systolic 118 mmHg BP Diastolic 74 mmHg Respiratory Rate 20 /min Pain Level 9 BMI (Body Mass Index) 24.4 kg/m2 01/03/2018 Height 70 inches 5'10" Weight 170.00 lb BP Systolic 132 mmHg BP Diastolic 88 mmHg Respiratory Rate 18 /min Body Temperature 98.6 F Pain Level 9 BMI (Body Mass Index) 24.4 kg/m2 12/27/2017 Height 70 inches 5'10" Weight 170.00 lb BP Systolic Sitting 122 mmHg BP Diastolic Sitting 60 mmHg Respiratory Rate 16 /min Body Temperature 98.0 F Pain Level 8 BMI (Body Mass Index) 24.4 kg/m2 11/27/2017 Height 70 inches 5'10" Weight 170.00 lb BP Systolic 126 mmHg BP Diastolic 68 mmHg Respiratory Rate 20 /min Pain Level 8 BMI (Body Mass Index) 24.4 kg/m2 11/09/2017 Height 70 inches 5'10" Weight 198.00 lb Heart Rate 95 /min BP Systolic Sitting 100 mmHg BP Diastolic Sitting 70 mmHg BP Systolic Standing 110 mmHg BP Diastolic Standing 80 mmHg Respiratory Rate 17 /min BMI (Body Mass Index) 28.4 kg/m2 Ejection Fraction 70% 10/05/2017 echo 10/16/2017 Height 70 inches 5'10" Weight 202.00 lb BP Systolic 148 mmHg BP Diastolic 90 mmHg Respiratory Rate 18 /min Pain Level 4 BMI (Body Mass Index) 29.0 kg/m2 10/09/2017 Height 70 inches 5'10" Weight 202.75 lb with shoes Heart Rate 116 /min BP Systolic Sitting 156 mmHg Lue reg cuff BP Diastolic Sitting 108 mmHg Lue reg cuff Respiratory Rate 18 /min BMI (Body Mass Index) 29.1 kg/m2 Ejection Fraction >70% date 10/05/17 ECHO 09/28/2017 Height 70 inches 5'10" Weight 170.00 lb BP Systolic 132 mmHg BP Diastolic 70 mmHg Respiratory Rate 18 /min Pain Level 8 BMI (Body Mass Index) 24.4 kg/m2 08/28/2017 Height 70 inches 5'10" Weight 170.00 lb BP Systolic 122 mmHg BP Diastolic 70 mmHg Respiratory Rate 20 /min Pain Level 4 BMI (Body Mass Index) 24.4 kg/m2 08/22/2017 Height 70 inches 5'10" Weight 205.38 lb Heart Rate 114 /min BP Systolic Sitting 120 mmHg LA, reg cuff BP Diastolic Sitting 84 mmHg LA, reg cuff BMI (Body Mass Index) 29.5 kg/m2 Ejection Fraction 60%-65% echo 09/27/16 08/03/2017 Height 70 inches 5'10" Weight 170.00 lb Heart Rate 78 /min Respiratory Rate 17 /min Pain Level 10 BMI (Body Mass Index) 24.4 kg/m2 05/29/2017 Height 70 inches 5'10" Weight 170.00 lb Heart Rate 70 /min Respiratory Rate 16 /min Body Temperature 97.9 F Pain Level 4 BMI (Body Mass Index) 24.4 kg/m2 04/10/2017 Height 70 inches 5'10" Weight 170.00 lb Heart Rate 121 /min Respiratory Rate 15 /min Body Temperature 98.0 F Pain Level 8 BMI (Body Mass Index) 24.4 kg/m2 02/23/2017 Height 70 inches 5'10" Weight 170.00 lb Heart Rate 92 /min BP Systolic 134 mmHg BP Diastolic 90 mmHg Body Temperature 97.6 F BMI (Body Mass Index) 24.4 kg/m2 12/26/2016 Height 70 inches 5'10" Weight 151.00 lb Heart Rate 96 /min BP Systolic 132 mmHg BP Diastolic 86 mmHg BMI (Body Mass Index) 21.7 kg/m2 12/11/2016 Height 72 inches 6'0" Weight 157.25 lb Heart Rate 92 /min BP Systolic Sitting 120 mmHg BP Diastolic Sitting 66 mmHg Respiratory Rate 14 /min BMI (Body Mass Index) 21.3 kg/m2 09/14/2015 Height 72 inches 6'0" Heart Rate 88 /min BP Systolic Sitting 148 mmHg BP Diastolic Sitting 84 mmHg Respiratory Rate 16 /min 05/27/2015 Height 72 inches 6'0" Weight 193.00 lb BMI (Body Mass Index) 26.2 kg/m2 01/27/2015 Height 72 inches 6'0" Weight 193.00 lb Heart Rate 131 /min BP Systolic Sitting 113 mmHg BP Diastolic Sitting 86 mmHg Pain Level 8 BMI (Body Mass Index) 26.2 kg/m2 11/10/2014 Height 72 inches 6'0" Weight 193.00 lb Heart Rate 76 /min BP Systolic Sitting 138 mmHg BP Diastolic Sitting 80 mmHg Respiratory Rate 17 /min BMI (Body Mass Index) 26.2 kg/m2 10/28/2013 Height 72 inches 6'0" Weight 193.00 lb Heart Rate 72 /min BP Systolic Sitting 120 mmHg BP Diastolic Sitting 120 mmHg Respiratory Rate 16 /min BMI (Body Mass Index) 26.2 kg/m2 08/20/2013 Heart Rate 120 /min BP Systolic 124 mmHg BP Diastolic 78 mmHg 08/21/2012 Height 72 inches 6'0" Weight 193.00 lb Heart Rate 120 /min BP Systolic Sitting 136 mmHg BP Diastolic Sitting 98 mmHg Respiratory Rate 20 /min BMI (Body Mass Index) 26.2 kg/m2 07/22/2012 Height 72 inches 6'0" Weight 190.00 lb Heart Rate 120 /min BP Systolic Sitting 142 mmHg BP Diastolic Sitting 88 mmHg Respiratory Rate 20 /min BMI (Body Mass Index) 25.8 kg/m2 11/03/2004 Height 72 inches 6'0" Weight 216.00 lb Heart Rate 97 /min BP Systolic Sitting 130 mmHg R 120/70 L BP Diastolic Sitting 80 mmHg R 120/70 L BP Systolic Standing 130 mmHg R BP Diastolic Standing 70 mmHg R O2 % BldC Oximetry 97 % BMI (Body Mass Index) 29.3 kg/m2 Results Test Date Test Result H/L Range Note Basic Metabolic Panel 11/20/2017 Sodium 138 mmol/L Low 139-145 1 Potassium 4.5 mmol/L 3.5-5.0 1 Chloride 102 mmol/L 101-111 1 Co2 Carbon Dioxide 29 mmol/L 22-32 1 Anion Gap 7 mmol/L 2-11 1 Glucose 131 mg/dL High 70-100 1 Blood Urea Nitrogen 13 mg/dL 6-24 1 Creatinine 0.93 mg/dL 0.67-1.17 1 BUN/Creatinine Ratio 14.0 8-20 1 Calcium 9.3 mg/dL 8.6-10.3 1 Egfr Non- 80.6 >60 1 Egfr 103.6 >60 1, 2 Laboratory test finding 11/20/2017 Magnesium 1.9 mg/dL 1.9-2.7 1, 3 Laboratory test finding 11/09/2017 Magnesium <pending> 1 [id number] 2 Because ethnic data is not always readily available, this report includes an eGFR for both -Americans and non- Americans. The National Kidney Disease Education Program (NKDEP) does not endorse the use of the MDRD equation for patients that are not between the ages of 18 and 70, are , have extremes of body size, muscle mass, or nutritional status, or are non- or non-. According to the National Kidney Foundation, irrespective of diagnosis, the stage of the disease is based on the level of kidney function: Stage Description GFR(mL/min/1.73 m(2)) 1 Kidney damage with normal or decreased GFR 90 2 Kidney damage with mild decrease in GFR 60-89 3 Moderate decrease in GFR 30-59 4 Severe decrease in GFR 15-29 5 Kidney failure <15 (or dialysis) 3 [id number] Procedures Date CPT Code Description Status 12/27/201725127 Inject/Drain Joint/Bursa Major W/O US Completed 11/29/2017 35548 Removal Devitalization Tissue Wound Less Than Equal 20 Completed Square CM 11/08/2017 03019 Holter Monitor Review (24 hr)dr review & interp only Completed 11/06/2017 87235 ECG Monitor/Recording W/Visual Superimposition Scanning Completed 10/05/2017 39800 ECHO Transthoracic, Real-Time 2D With Doppler And Color Completed Flow 10/05/2017 77435 ECHO Transthoracic, Real-Time 2D With Doppler And Color Completed Flow 09/20/2017 13394 Holter Monitor Review (24 hr) review & interp only Completed 09/19/2017 30935 ECG Monitor/Recording W/Visual Superimposition Scanning Completed 08/28/201731617 Inject/Drain Joint/Bursa Major W/O US Completed 08/22/2017 49548 EKG Tracing & Interpretation Completed 05/29/201711155 Inject/Drain Joint/Bursa Major W/O US Completed 02/23/201784041 Inject/Drain Joint/Bursa Major W/O US Completed 01/05/2017 43218 EKG, Interpretation Only Completed 12/26/2016 33716 Inject Tendon Sheath Or Ligament Aponeurosis Eg Plantar Completed Fascia 09/27/2016 30919 ECHO Transthoracic, Real-Time 2D With Doppler And Color Completed Flow 03/08/2016 29143 ECHO Transthorasic Realtime 2D W Doppler & Color Flow Completed Hosp 03/08/2016 74680 EKG, Interpretation Only Completed 01/27/201556433 Inject/Drain Joint/Bursa Major W/O US Completed 04/10/201309860 Inject/Drain Joint/Bursa Major W/O US Completed 02/28/2013 19590 Rad Shoulder Comp, Min. 2 Views Completed 12/26/201246235 Inject/Drain Joint/Bursa Major W/O US Completed 12/26/201294468 Inject/Drain Joint/Bursa Major W/O US Completed 08/13/2012 26606 Holter Monitoring 24 HR New Completed 08/09/2012 06873 Inject/Drain Joint/Bursa Major W/O US Completed 07/31/2012 08171 ECHO Stress Test Incl Perf Contiuous ekg Monitoring Completed W/Phys Superv 07/31/2012 75585 ECHO Stress Test Incl Perf Contiuous ekg Monitoring Completed W/Phys Superv 07/22/2012 92841 EKG Tracing & Interpretation Completed 06/18/2012 17563 ECHO Transthoracic, Real-Time 2D With Doppler And Color Completed Flow 03/25/2012 46229 Rad Exam; Hand Limited Completed 03/25/2012 00872 Rad Exam; Hand Limited Completed 03/19/201299193 Inject/Drain Joint/Bursa Major W/O US Completed 03/19/2012 Inject/Drain Joint/Bursa Major W/O US Completed 11/23/2011 Inject/Drain Joint/Bursa Major W/O US Completed 09/14/2011 Inject/Drain Joint/Bursa Major W/O US Completed 09/14/2011 Inject/Drain Joint/Bursa Major W/O US Completed 06/14/2011 Inject/Drain Joint/Bursa Major W/O US Completed 06/14/2011 Inject/Drain Joint/Bursa Major W/O US Completed 04/03/2011 91009 Rad Shoulder Comp, Min. 2 Views Completed 04/03/2011 64944 Rad Shoulder Comp, Min. 2 Views Completed 04/03/201193019 Inject/Drain Joint/Bursa Intermediate W/O US Completed 11/03/2004 67461 EKG Tracing & Interpretation Completed Encounters Type Date Location Provider CPT E/M Dx Office Visit 01/08/2018 [facility] [place] [address] S46.012D 11:00a C.M.A. S46.011D M19.011 M19.012 Office Visit 12/27/2017 1:15p [facility] [place] [address] S46.012D C.M.A. S46.011D M19.011 M19.012 M25.541 M25.542 Office Visit 12/19/2017 12:00p [facility], Marilu Garcia, 66807 R33.9 Hospitalists D.O. B95.7 N39.0 S32.040A K21.9 E03.9 Office Visit 12/18/2017 11:59a [facility] Marlene Noel, N.P. 34552 R33.9 Hospitalists B95.7 N39.0 S32.040A K21.9 E03.9 Office Visit 12/17/2017 11:58a [facility] Marilu Garcia, 90458 R33.9 Hospitalists D.O. N39.0 M79.604 M79.605 K21.9 E03.9 Office Visit 12/16/2017 11:58a [facility] Cam Schilling, 52251 R33.9 Hospitalists M.D. N39.0 M79.604 M79.605 K21.9 E03.9 Office Visit 12/15/2017 11:57a [facility] Cam Schilling, 80502 N39.0 Hospitalists M.D. R33.9 K21.9 E03.9 Office Visit 11/29/2017 12:45p [facility] Benny Law, 61491 L89.322 AT [facility] M.DCecille E03.9 Z79.01 Z86.718 Office Visit 11/27/2017 10:00a [facility] [place] [address] S46.012D C.M.A. S46.011D Office Visit 11/09/2017 10:00a [facility] Sherrie Camejo, 62796 R00.2 [facility] Director N.P. R00.0 I49.1 I10 I71.9 E78.5 Office Visit 10/16/2017 2:00p [facility] [place] [address] M76.62 C.M.A. M72.2 Office Visit 10/09/2017 1:10p [facility] Annamaria Moreno, 69273 I49.1 M.D. R00.0 I10 I71.9 E78.5 I35.1 I34.0 Office Visit 09/28/2017 10:15a [facility] [place] [address] M76.62 C.M.A. M72.2 M84.375A M79.672 Office Visit 08/22/2017 2:20p [facility] Annamaria Moreno, 46103 R00.0 M.DCecille R60.9 R06.02 R00.2 R94.31 Office Visit 08/03/2017 11:00[place] [facility] [place] [address] M76.62 Chun M19.071 Office Visit 04/10/2017 1:00p [facility] Arturo Posadas 58974 M19.011 Of Chun [place] M19.012 M75.21 M75.22 S46.111D M47.812 Office Visit 02/23/2017 9:30a [facility] [place] [address] M19.011 Chun M19.012 Office Visit 01/05/2017 3:05p [facility] Arturo Galindo 90219 S70.01xA Chun Posadas MD Office Visit 01/05/2017 1:35p [facility] Dane Bartholomew, 53326 M25.551 Assoc,pc Hospitalists I10 K21.9 R00.0 Office Visit 01/04/2017 1:34p [facility] [place] [address] M25.551 Assoc,pc Hospitalists I10 K21.9 R00.0 Office Visit 12/26/2016 1:00p [facility] Arturo Posadas, 81300 M19.011 Of Chun [place] M19.012 S46.211A S46.102A M75.21 M75.22 Office Visit 12/11/2016 2:00p [facility] Benny Peters, 21514 G25.81 Services Of Libby Metcalf R11.0 Office Visit 10/16/2016 2:58p [facility] Caleb Raines, 70799 L03.211 Assoc,pc Hospitalists Tea L03.213 K04.7 R41.89 Office Visit 10/15/2016 2:57p [facility] [address] L03.211 Hospitalists L03.213 K04.7 R41.89 Office Visit 10/02/2016 10:52a [facility] Brad Mendez, 05142 R20.0 R47.81 Office Visit 10/02/2016 3:15p [facility] [place], [address] I63.9 Assoc,pc Hospitalists M.D. I10 E78.5 E03.9 Office Visit 03/28/2016 1:25p [facility] Giselle Armani, 26221 R33.9 Assoc,pc [employer] Hospitalists N17.9 I10 E03.9 Office Visit 03/11/2016 7:41a [facility] Marilu Jose, 38923 R07.9 Hospitalists D.O. N17.9 R33.9 I10 Office Visit 03/10/2016 7:40a [facility] Marilu Jose, 11118 R07.9 Hospitalists D.O. N17.9 R33.9 I10 Office Visit 03/09/2016 7:39a [facility] Tiffany Kidd, 90443 R07.9 Hospitalists M.D. N17.9 E86.0 I10 Office Visit 03/08/2016 7:39a [facility] [address] R07.9 Hospitalists F79 I10 Office Visit 09/14/2015 11:45a [facility] Benny Peters, 22631 G25.81 Services Of Libby Metcalf Office Visit 05/27/2015 10:30a [facility] Ted Núñez 98580 M19.011 Of Chun Metcalf M19.012 Office Visit 01/27/2015 11:00a [facility] Ted Núñez 53719 715.11 Chun Metcalf Office Visit 11/10/2014 10:30a [facility] Benny Peters, 21947 333.94 Services Of Libby Metcalf Office Visit 10/28/2013 11:45a [facility] Benny Peters 61930 333.94 Services Of Libby Metcalf Office Visit 08/20/2013 10:00a [facility] Ted Núñez 97214 715.11 Chun Metcalf Office Visit 04/10/2013 10:45a [facility] Ted Núñez, 51030 715.11 CPatience Metcalf Office Visit 02/28/2013 10:00a [facility] Ted Núñez, 30413 715.11 C.Lisbet Metcalf Office Visit 02/04/2013 10:00a [facility] Les Cunningham M.D. 88776 727.62 C.M.A. Office Visit 01/10/2013 11:15a [facility] M.D. 57521 715.11 C.M.ACecille 727.62 Office Visit 12/31/2012 2:00p [facility] M.D. 76512 715.11 C.M.ACecille Office Visit 12/26/2012 11:00a [facility] M.D. 68698 715.11 C.M.ACecille Office Visit 09/03/2012 2:00p [facility] Benny Peters, 38418 333.94 [facility] Director M.DCecille Office Visit 08/21/2012 11:00a [facility] Annamaria Rodriguez 21454 785.1 Tea Moreno 785.0 401.1 272.2 Office Visit 08/09/2012 11:30a [facility] M.D. 72711 715.11 Chun 719.41 Office Visit 07/24/2012 9:45a [facility] Christina Wells, 78619 715.34 Of Chun Metcalf Office Visit 07/22/2012 9:40a [facility] Annamaria Moreno 38376 785.0 MCecilleDCecille 272.2 401.1 785.1 786.05 Office Visit 04/30/2012 2:45p [facility] Salome Gresham, 57036 333.94 [facility] Director M.D. Office Visit 03/25/2012 11:00a [facility] Christina 14810 715.11 Of Chun Wells M.D. Office Visit 03/19/2012 2:45p [facility] Les Cunningham M.D. 30749 715.11 Of C.M.A. Office Visit 11/23/2011 10:00a [facility] Cunningham M.D. 62094 715.91 Of C.M.A. 715.11 Office Visit 09/14/2011 11:00a [facility] M.D. 39052 715.11 C.M.A. Office Visit 06/14/2011 2:00p [facility] Raman Conway M.D. 13423 715.11 C.M.A. Office Visit 04/03/2011 10:45a [facility] Conway M.D. 43141 715.11 C.M.A. Office Visit 03/19/2007 2:00p [facility] Dane Shea, 60055 721.0 Of Libby Metcalf Office Visit 11/03/2004 10:20a [facility] Josh FCecille 82365 272.0 Tea Duvall Plan of Care Future Appointment(s):01/14/2018 11:15 am - Raman Conway M.D. at [facility].04/02/2018 10:00 am - Fady Jara MD at [facility]02/07/2018 9:15 am - Benny Peters M.D. at [facility] Ripodv4501/08/2018 - Fady Jara, MDS46.012D Strain of musc/tend the rotator cuff of left shoulder, subsFollow up:Follow up: with Cuauhtemoc or Zoraida for second icrsknaE42.011D Strain of musc/tend the rotator cuff of right shoulder, subsM19.011 Primary osteoarthritis, right vrsqbjneD50.012 Primary osteoarthritis , left shoulder
--- OUTSIDE RECORDS SUMMARY | 2018-01-18 23:09 | XMS REPORT ---
:1945 External Reference #:[id number] Author Organization [email or web address] Address [address] [place] [address] [place] [address] Phone [phone] Care Team Providers Name Role Phone Liam Patel MD Primary Care Physician Unavailable Payers Type Date Identification Numbers Payment Provider Subscriber Medicare Primary Effective: Policy Number: Medicare Harinder Gasca 2000 [id number] PayID: [id number] [address] [place] [address] Medigap Part B Policy Number: [id number] Medicaid Harinder Gasca PayID: [id number] [address] [place] [address] Problems Date Description Provider Status Onset: 07/22/2012 [...] Mother due to Stroke Mother due to NM () Siblings 1 First Brother Alive And [...] Annamaria 2018 - [facility] a , M.D. 11/06/17 Hold ([facility] aware) Tramadol HCL 02/23/ Hx Tablets 50mg 60tabs 2 M19.011 Zaneb 2016 - tablets Yaseen, 04/09/ every 8 MD 2016 hours as needed Horizant 01/25/ Hx Tablets ER 300mg 30tabs 1 [facility] Benny Hurley - Fran, 08/21/ M.D. 2018 [...] Benny Rodriguez 10/28/2013 wk then 1 at [place], 6PM and 1 at M.D. hs Dilaudid [...] Cunningham, 02/04/2013 po tid prn M.D. pain Axtell 01/03/2013 - Hx Tablets 5-325mg 30tabs take [...] Hx Tablets 3mg 540tabs 3 tabs by Joseophsusie 08/21/2017 mouth three Aaron, M.DCecille times a day Carisoprodol - Hx Tablets [...] Form Strength Qnty SIG Indications Ordering Provider Technetium TC 09/27/ Administered Injection Qutaybeh 99M Tetrofosmin, 2018 S. Per Unit Dose Up Maghaydah, To 40 M.D. Millicuries Triamcinolone 08/28/ Administered Injection Zaneb (Kenalog) 2017 MD Marek Triamcinolone 08/28/ Administered Injection Zaneb (Kenalog) 2017 MD Marek Triamcinolone 05/29/ Administered Injection Zaneb (Kenalog) 2016 MD Marek Triamcinolone 05/29/ Administered Injection Zaneb (Kenalog) 2016 MD Marek Triamcinolone 02/23/ Administered Injection Zaneb (Kenalog) 2016 MD Marek Triamcinolone 02/23/ Administered Injection Zaneb (Kenalog) 2016 MD Marek Dexamethasone 12/26/ Administered Injection Arturo F Sodium 2017 Cuauhtemoc, Phosphate, 1 MG Dexamethasone 12/26/ Administered Injection Arturo F Sodium 2016 Cuauhtemoc, Phosphate, 1 MG Depomedrol 80MG 01/27/ Administered [...] Cunningham Depomedrol 80MG 06/14/ Administered Injection Dirk 2010 Tea Conway Depomedrol 80MG 06/14/ Administered Injection Dirk 2010 Tea Conway Depomedrol 80MG 04/03/ Administered Injection Dirk 2010 Tea Conway Vital Signs Date Vital Result Comment 12/27/2017 Height 70 inches 5'10" Weight 170.00 [...] Laboratory test finding 11/09/2017 Magnesium <pending> 1 [id number] 2 Because ethnic data is not always [...] 5 Kidney failure <15 (or dialysis) 3 [id number] Procedures Date CPT Code Description Status 12/27/2017 Inject/Drain Joint/Bursa Major W/O US Completed 12/27/2017 Inject/Drain Joint/Bursa Major W/O US Completed 11/29/2017 19483 Removal Devitalization Tissue Wound Less Than Equal 20 Completed Square CM 11/08/2017 15676 Holter Monitor Review (24 hr)dr gerber & interp only Completed 11/06/2017 83098 ECG Monitor/Recording W/Visual Superimposition Scanning Completed 10/05/2017 07776 ECHO Transthoracic, Real-Time 2D With Doppler And Color Completed Flow 10/05/2017 58558 ECHO Transthoracic, Real-Time 2D With Doppler And Color Completed Flow 09/20/2017 35267 Holter Monitor Review (24 hr)dr review & interp only Completed 09/19/2017 86686 ECG Monitor/Recording W/Visual Superimposition Scanning Completed 08/28/201720054 Inject/Drain Joint/Bursa Major W/O US Completed 08/22/2017 69300 EKG Tracing & Interpretation Completed 05/29/201759290 Inject/Drain Joint/Bursa Major W/O US Completed 02/23/201747137 Inject/Drain Joint/Bursa Major W/O US Completed 01/05/2017 53121 EKG, Interpretation Only Completed 12/26/2016 59437 Inject Tendon Sheath Or Ligament Aponeurosis Eg Plantar Completed Fascia 09/27/2016 29006 ECHO Transthoracic, Real-Time 2D With Doppler And Color Completed Flow 03/08/2016 07881 ECHO Transthorasic Realtime 2D W Doppler & Color Flow Completed Hosp 03/08/2016 36541 EKG, Interpretation Only Completed 01/27/201590011 Inject/Drain Joint/Bursa Major W/O US Completed 04/10/201381350 Inject/Drain Joint/Bursa Major W/O US Completed 02/28/2013 49731 Rad Shoulder Comp, Min. 2 Views Completed 12/26/201242820 Inject/Drain Joint/Bursa Major W/O US Completed 12/26/201232706 Inject/Drain Joint/Bursa Major W/O US Completed 08/13/2012 41539 Holter Monitoring 24 HR New Completed 08/09/201289275 Inject/Drain Joint/Bursa Major W/O US Completed 07/31/2012 02064 ECHO Stress Test Incl Perf Contiuous ekg Monitoring Completed W/Phys Superv 07/31/2012 47646 ECHO Stress Test Incl Perf Contiuous ekg Monitoring Completed W/Phys Superv 07/22/2012 45790 EKG Tracing & Interpretation Completed 06/18/2012 65807 ECHO Transthoracic, Real-Time 2D With Doppler And Color Completed Flow 03/25/2012 52658 Rad Exam; Hand Limited Completed 03/25/2012 25988 Rad Exam; Hand Limited Completed 03/19/201276013 Inject/Drain Joint/Bursa Major W/O US Completed 03/19/201276298 Inject/Drain Joint/Bursa Major W/O US Completed 11/23/2011 Inject/Drain Joint/Bursa Major W/O US Completed 09/14/2011 Inject/Drain Joint/Bursa Major W/O US Completed 09/14/2011 Inject/Drain Joint/Bursa Major W/O US Completed 06/14/2011 Inject/Drain Joint/Bursa Major W/O US Completed 06/14/2011 Inject/Drain Joint/Bursa Major W/O US Completed 04/03/2011 15493 Rad Shoulder Comp, Min. 2 Views Completed 04/03/2011 41921 Rad Shoulder Comp, Min. 2 Views Completed 04/03/2011 Inject/Drain Joint/Bursa Intermediate W/O US Completed 11/03/2004 06781 EKG Tracing & Interpretation Completed Encounters Type Date Location Provider CPT E/M Dx Office Visit 12/27/2017 [facility] [place] [address] S46.012D 1:15p C.[facility]. S46.011D M19.011 M19.012 M25.541 M25.542 Office Visit 12/19/2017 12:00p [facility], Marilu Garcia, 55491 R33.9 Hospitalists D.O. B95.7 N39.0 S32.040A K21.9 E03.9 Office Visit 12/18/2017 11:59a [facility], Marlene Noel N.Sabrina. 97712 R33.9 Hospitalists B95.7 N39.0 S32.040A K21.9 E03.9 Office Visit 12/17/2017 11:58a [facility], Marilu Garcia, 26777 R33.9 Hospitalists D.O. 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 R00.0 I49.1 I10 I71.9 E78.5 Office Visit 10/16/2017 2:00p [facility] [place] [address] M76.62 C.M.A. M72.2 Office Visit 10/09/2017 1:10p [facility] Michael Moreno, 94631 I49.1 M.DCecille R00.0 I10 I71.9 E78.5 I35.1 I34.0 Office Visit 09/28/2017 10:15[place] [facility] [place] [address] M76.62 C.M.ACecille M72.2 M84.375A M79.672 Office Visit 08/22/2017 2:20p [facility] Michael Moreno, 96604 R00.0 M.DCecille R60.9 R06.02 R00.2 R94.31 Office Visit 08/03/2017 11:00a [facility] [place] [address] M76.62 C.M.ACecille M19.071 Office Visit 04/10/2017 1:00p [facility] Arturo Posadas, 77896 M19.011 Of Chun WEINBERG M19.012 M75.21 M75.22 S46.111D M47.812 Office Visit 02/23/2017 9:30a [facility] [place] [address] M19.011 Chun M19.012 Office Visit 01/05/2017 3:05p [facility] Arturo Galindo 00851 S70.01xA Chun Posadas MD Office Visit 01/05/2017 1:35p [facility] Daneissa Bartholomew, 27692 M25.551 Assoc,pc Hospitalists I10 K21.9 R00.0 Office Visit 01/04/2017 1:34p [facility] [place] [address] M25.551 Assoc,pc Hospitalists I10 K21.9 R00.0 Office Visit 12/26/2016 1:00p [facility] Arturo Posadas, 20524 M19.011 Of Chun WEINBERG M19.012 S46.211A S46.102A M75.21 M75.22 Office Visit 12/11/2016 2:00p [facility] Benny Peters, 61832 G25.81 Services Of Libby Metcalf R11.0 Office Visit 10/16/2016 2:58p [facility] Caleb Raines, 88816 L03.211 Assoc,pc Hospitalists Tea L03.213 K04.7 R41.89 Office Visit 10/15/2016 2:57p [facility] Assoc,pc Beata Rootrodney, 67682 L03.211 Hospitalists L03.213 K04.7 R41.89 Office Visit 10/02/2016 10:52a [facility] Brad Mendez, 52047 R20.0 R47.81 Office Visit 10/02/2016 3:15p [facility] [place], [address] I63.9 Assoc,pc Hospitalists Tea I10 E78.5 E03.9 Office Visit 03/28/2016 1:25p [facility] Giselle Lomeli, 06584 R33.9 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 N17.9 R33.9 I10 Office Visit 03/10/2016 7:40a [facility] Marilu Garcia, 41304 R07.9 Hospitalists D.O. N17.9 R33.9 I10 Office Visit 03/09/2016 7:39a [facility] Assoc,pc Tiffany Kidd, 84360 R07.9 Hospitalists M.DCecille N17.9 E86.0 I10 Office Visit 03/08/2016 7:39a [facility] Assoc,pc Lizbet Suggs, CHIEF OPHTHALMIC TECHNICIAN 37014 R07.9 Hospitalists F79 I10 Office Visit 09/14/2015 11:45a [facility] Benny Peters, 85241 G25.81 Services Of Stock Shipper M.D. Office Visit 05/27/2015 10:30a [facility] Ted Núñez 90873 M19.011 Of Chun Metcalf M19.012 Office Visit 01/27/2015 11:00a [facility] Ted Wilton 30910 715.11 CPatience Metcalf Office Visit 11/10/2014 10:30a [facility] Benny Peters, 52632 333.94 Services Of Libby M.DCecille Office Visit 10/28/2013 11:45a [facility] Benny Peters, 07887 333.94 Services Of Libby M.D. Office Visit 08/20/2013 10:00a [facility] Ted Wilton 36743 715.11 CPatience Metcalf Office Visit 04/10/2013 10:45a [facility] Ted Obandomckenzie 33928 715.11 Chun Metcalf Office Visit 02/28/2013 10:00a [facility] Ted Obandomckenzie 74951 715.11 Chun Metcalf Office Visit 02/04/2013 10:00a [facility] Cunningham M.D. 07829 727.62 C.M.ACecille Office Visit 01/10/2013 11:15a [facility] M.D. 36181 715.11 C.MCecilleACecille 727.62 Office Visit 12/31/2012 2:00p [facility] M.D. 81585 715.11 C.M.ACecille Office Visit 12/26/2012 11:00a [facility] M.D. 59085 715.11 C.M.ACecille Office Visit 09/03/2012 2:00p [facility] Benny Peters, 45273 333.94 Services Of Libby M.D. Office Visit 08/21/2012 11:00a [facility] Qutaybanil Rodriguez 50095 785.1 Tea Moreno 785.0 401.1 272.2 Office Visit 08/09/2012 11:30a [facility] Cunningham M.D. 28197 715.11 C.M.ACecille 719.41 Office Visit 07/24/2012 9:45a [facility] Christina Wells, 53672 715.34 Of C.Lisbet Metcalf Office Visit 07/22/2012 9:40a [facility] Nikitaybanil Rodriguez Tiffanie, 31259 785.0 M.DCecille 272.2 401.1 785.1 786.05 Office Visit 04/30/2012 2:45p [facility] Salome AdrianCecille Arreagakayden, 85860 333.94 Services Of Libby M.DCecille Office Visit 03/25/2012 11:00a [facility] Christina 97991 715.11 Of Chun Wells M.D. Office Visit 03/19/2012 2:45p [facility] Les Cunningham M.D. 20632 715.11 Of C.M.ACecille Office Visit 11/23/2011 10:00a [facility] Les Cunningham M.D. 43159 715.91 Of Chun 715.11 Office Visit 09/14/2011 11:00a [facility] M.D. 73981 715.11 C.M.ACecille Office Visit 06/14/2011 2:00p [facility] Raman Conway M.D. 29284 715.11 C.M.ACecille Office Visit 04/03/2011 10:45a [facility] Raman Conway M.D. 45946 715.11 C.M.ACecille Office Visit 03/19/2007 2:00p [facility] Dane Shea, 76843 721.0 Of Libby Metcalf Office Visit 11/03/2004 10:20a [facility] Josh Patel 85566 272.0 Tea Duvall Plan of Care Future Appointment(s):12/31/2017 9:00 am - Ewelina Salvador M.D. at [facility].04/02/2018 10:00 am - Fady Jara MD at [facility].02/07/2018 9:15 am - Benny Peters M.D. at [facility] Lxxwiu9212/27/2017 - Fady Jara, MDS46.012D Strain of musc/tend the rotator cuff of left shoulder, subsFollow up:Follow up: as fppgsdN47.011D Strain of musc/tend the rotator cuff of right shoulder, subsM19.011 Primary osteoarthritis , right oqvpyhpyM32.012 Primary osteoarthritis, left qzehegnmY98.541 Pain in joints of right handFollow up:Follow up: pls make appt with stu or luna for mydhdE07.542 Pain in joints of left hand
--- OUTSIDE RECORDS SUMMARY | 2018-01-18 23:09 | XMS REPORT ---
:1945 External Reference #:[id number] Author Organization [facility] Address [address] [place] [address] [place] [address] Phone [phone] Care Team Providers Name Role Phone Liam Patel MD Primary Care Physician Unavailable Payers Type Date Identification Numbers Payment Provider Subscriber Medicare Primary Effective: Policy Number: Medicare Harinder Gasca 2000 [id number] PayID: [id number] [address] [place] [address] Medigap Part B Policy Number: [id number] Medicaid Harinder Gasca PayID: [id number] [address] [place] [address] Problems Date Description Provider Status Onset: 07/22/2012 [...] Mother due to Stroke Mother due to [place] () Siblings 1 First Brother Alive And [...] Annamaria 2018 - [facility] , M.D. 11/06/17 Hold ([facility] aware) Tramadol HCL 02/23/ Hx Tablets 50mg 60tabs 2 M19.011 Zaneb 2016 - tablets Yaseen, 04/09/ every 8 MD 2016 hours as needed Horizant 01/25/ Hx Tablets ER 300mg 30tabs 1 po [facility] Benny Hurley - Fran, 08/21/ M.D. 2018 [...] Benny Rodriguez 10/28/2013 wk then 1 at [facility], 6PM and 1 at M.D. hs Dilaudid [...] Cunningham, 02/04/2013 po tid prn M.D. pain [place] 01/03/2013 - Hx Tablets 5-325mg 30tabs take [...] Tea Vital Signs Date Vital Result Comment 01/03/2018 Height 70 inches 5'10" Weight 170.00 [...] Laboratory test finding 11/09/2017 Magnesium <pending> 1 [id number] 2 Because ethnic data is not always [...] 5 Kidney failure <15 (or dialysis) 3 [id number] Procedures Date CPT Code Description Status 12/27/201735024 Inject/Drain Joint/Bursa Major W/O US Completed 11/29/2017 20556 Removal Devitalization Tissue Wound Less Than Equal 20 Completed Square CM 11/08/2017 07349 Holter Monitor Review (24 hr)dr review & interp only Completed 11/06/2017 06887 ECG Monitor/Recording W/Visual Superimposition Scanning Completed 10/05/2017 06040 ECHO Transthoracic, Real-Time 2D With Doppler And Color Completed Flow 10/05/2017 84840 ECHO Transthoracic, Real-Time 2D With Doppler And Color Completed Flow 09/20/2017 30017 Holter Monitor Review (24 hr)dr review & interp only Completed 09/19/2017 63534 ECG Monitor/Recording W/Visual Superimposition Scanning Completed 08/28/2017 74672 Inject/Drain Joint/Bursa Major W/O US Completed 08/22/2017 87148 EKG Tracing & Interpretation Completed 05/29/201726082 Inject/Drain Joint/Bursa Major W/O US Completed 02/23/201795423 Inject/Drain Joint/Bursa Major W/O US Completed 01/05/2017 02489 EKG, Interpretation Only Completed 12/26/2016 87189 Inject Tendon Sheath Or Ligament Aponeurosis Eg Plantar Completed Fascia 09/27/2016 02758 ECHO Transthoracic, Real-Time 2D With Doppler And Color Completed Flow 03/08/2016 22423 ECHO Transthorasic Realtime 2D W Doppler & Color Flow Completed Hosp 03/08/2016 66233 EKG, Interpretation Only Completed 01/27/201568158 Inject/Drain Joint/Bursa Major W/O US Completed 04/10/201344467 Inject/Drain Joint/Bursa Major W/O US Completed 02/28/2013 23657 Rad Shoulder Comp, Min. 2 Views Completed 12/26/201227902 Inject/Drain Joint/Bursa Major W/O US Completed 12/26/201296108 Inject/Drain Joint/Bursa Major W/O US Completed 08/13/2012 25719 Holter Monitoring 24 HR New Completed 08/09/201240405 Inject/Drain Joint/Bursa Major W/O US Completed 07/31/2012 68504 ECHO Stress Test Incl Perf Contiuous ekg Monitoring Completed W/Phys Superv 07/31/2012 87066 ECHO Stress Test Incl Perf Contiuous ekg Monitoring Completed W/Phys Superv 07/22/2012 75160 EKG Tracing & Interpretation Completed 06/18/2012 41207 ECHO Transthoracic, Real-Time 2D With Doppler And Color Completed Flow 03/25/2012 38915 Rad Exam; Hand Limited Completed 03/25/2012 46878 Rad Exam; Hand Limited Completed 03/19/201208762 Inject/Drain Joint/Bursa Major W/O US Completed 03/19/2012 Inject/Drain Joint/Bursa Major W/O US Completed 11/23/2011 Inject/Drain Joint/Bursa Major W/O US Completed 09/14/2011 Inject/Drain Joint/Bursa Major W/O US Completed 09/14/2011 Inject/Drain Joint/Bursa Major W/O US Completed 06/14/2011 Inject/Drain Joint/Bursa Major W/O US Completed 06/14/2011 Inject/Drain Joint/Bursa Major W/O US Completed 04/03/2011 31157 Rad Shoulder Comp, Min. 2 Views Completed 04/03/2011 80258 Rad Shoulder Comp, Min. 2 Views Completed 04/03/2011 Inject/Drain Joint/Bursa Intermediate W/O US Completed 11/03/2004 81052 EKG Tracing & Interpretation Completed Encounters Type Date Location Provider CPT E/M Dx Office Visit 01/03/2018 [facility] Ewelina Salvador, 75268 M19.042 9:00a Of Chun Metcalf M19.041 Office Visit 12/19/2017 12:00p [facility], Marilu Garcia, 58681 R33.9 Hospitalists D.O. B95.7 N39.0 S32.040A K21.9 E03.9 Office Visit 12/18/2017 11:59a [facility], Marlene Noel, N.Nivia 54642 R33.9 Hospitalists B95.7 N39.0 S32.040A K21.9 E03.9 Office Visit 12/17/2017 11:58a [facility], Marilu Garcia, 94050 R33.9 Hospitalists D.O. N39.0 M79.604 M79.605 K21.9 E03.9 Office Visit 12/16/2017 11:58a [facility], Cam Kareric, 50612 R33.9 Hospitalists M.D. N39.0 M79.604 M79.605 K21.9 E03.9 Office Visit 12/15/2017 11:57a [facility], Cam Basileric, 44136 N39.0 Hospitalists M.DCecille R33.9 K21.9 E03.9 Office Visit 11/29/2017 12:45p [facility] Benny GalindoCecille Law, 07448 L89.322 AT [facility] M.DCecille E03.9 Z79.01 Z86.718 Office Visit 11/27/2017 10:00a [facility] [address] S46.012D C.M.A. 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 R00.0 I49.1 I10 I71.9 E78.5 Office Visit 10/16/2017 2:00p [facility] [place] [address] M76.62 C.M.A. M72.2 Office Visit 10/09/2017 1:10p [facility] Annamaria Moreno, 06405 I49.1 M.D. R00.0 I10 I71.9 E78.5 I35.1 I34.0 Office Visit 09/28/2017 10:15a [facility] [place] [address] M76.62 C.M.A. M72.2 M84.375A M79.672 Office Visit 08/22/2017 2:20p [facility] Annamaria Moreno, 10524 R00.0 M.D. R60.9 R06.02 R00.2 R94.31 Office Visit 08/03/2017 11:00a [facility] [place] [address] M76.62 C.M.A. M19.071 Office Visit 04/10/2017 1:00p [facility] Arturo Posadas, 89580 M19.011 Of Chun WEINBERG M19.012 M75.21 M75.22 S46.111D M47.812 Office Visit 02/23/2017 9:30a [facility] [place] [address] M19.011 Chun M19.012 Office Visit 01/05/2017 3:05p [facility] Of Arturo Galindo 36552 S70.01xA Chun Posadas MD Office Visit 01/05/2017 1:35p [facility] Dane Bartholomew, 33646 M25.551 Assoc,pc Hospitalists I10 K21.9 R00.0 Office Visit 01/04/2017 1:34p [facility] [place] [address] M25.551 Assoc,pc Hospitalists I10 K21.9 R00.0 Office Visit 12/26/2016 1:00p [facility] Arturo Posadas, 97789 M19.011 Of Chun WEINBERG M19.012 S46.211A S46.102A M75.21 M75.22 Office Visit 12/11/2016 2:00p [facility] Benny Peters, 85160 G25.81 Services Of Libby Metcalf R11.0 Office Visit 10/16/2016 2:58p [facility] Caleb Raines, 15808 L03.211 Assoc,pc Hospitalists Tea L03.213 K04.7 R41.89 Office Visit 10/15/2016 2:57p [facility] [place]oc,[place] [address] L03.211 Hospitalists L03.213 K04.7 R41.89 Office Visit 10/02/2016 10:52a [facility] Brad Mendez, 21184 R20.0 R47.81 Office Visit 10/02/2016 3:15p [facility] [place], [address] I63.9 Assoc,pc Hospitalists Tea I10 E78.5 E03.9 Office Visit 03/28/2016 1:25p [facility] Giselle Lomeli, 40162 R33.9 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 N17.9 R33.9 I10 Office Visit 03/10/2016 7:40a [facility],pc Marilu Senar, 37922 R07.9 Hospitalists D.O. N17.9 R33.9 I10 Office Visit 03/09/2016 7:39a [facility],pc Tiffany Smallima, 77826 R07.9 Hospitalists M.D. N17.9 E86.0 I10 Office Visit 03/08/2016 7:39a [facility], [place] [address] R07.9 Hospitalists F79 I10 Office Visit 09/14/2015 11:45a [facility] Benny Peters, 33447 G25.81 Services Of Libby M.DCecille Office Visit 05/27/2015 10:30a [facility] Ted Núñez 45363 M19.011 Of Chun Metcalf M19.012 Office Visit 01/27/2015 11:00a [facility] Of Ted Núeñz 44131 715.11 Chun Metcalf Office Visit 11/10/2014 10:30a [facility] Benny Peters, 55273 333.94 Services Of Libby M.DCecille Office Visit 10/28/2013 11:45a [facility] Benny Peters, 62677 333.94 Services Of Libby M.DeCcille Office Visit 08/20/2013 10:00a [facility] Of Ted Núñez 34079 715.11 Chun Metcalf Office Visit 04/10/2013 10:45a [facility] Of Ted Núñez 24183 715.11 Chun Metcalf Office Visit 02/28/2013 10:00a [facility] Of Ted Núñez 08433 715.11 Chun Metcalf Office Visit 02/04/2013 10:00a [facility] Of Les Cunningham M.D. 88843 727.62 C.M.ACecille Office Visit 01/10/2013 11:15a [facility] Les Cunningham M.D. 39706 715.11 C.M.ACecille 727.62 Office Visit 12/31/2012 2:00p [facility] Les Cunningham M.D. 00296 715.11 C.M.ACecille Office Visit 12/26/2012 11:00a [facility] Of Les Cunningham M.D. 09935 715.11 C.M.ACecille Office Visit 09/03/2012 2:00p [facility] Benny Michael Peters, 04330 333.94 Services Of Libby MJoanna Office Visit 08/21/2012 11:00a [facility] Annamaria Rodriguez 69859 785.1 Tea Moreno 785.0 401.1 272.2 Office Visit 08/09/2012 11:30a [facility] Of Les Cunningham M.D. 88549 715.11 C.MAlva 719.41 Office Visit 07/24/2012 9:45a [facility] Christina Wells, 89711 715.34 Of C.Lisbet Metcalf Office Visit 07/22/2012 9:40a [facility] Annamaria Moreno, 58048 785.0 MCecilleDCecille 272.2 401.1 785.1 786.05 Office Visit 04/30/2012 2:45p [facility] Salome NguyễnCecille Gresham, 90812 333.94 Services Of Libby M.DCecille Office Visit 03/25/2012 11:00a [facility] Christina 12252 715.11 Of C.M.Domo Wells M.D. Office Visit 03/19/2012 2:45p [facility] Les Cunningham M.D. 21937 715.11 Of C.M.ACecille Office Visit 11/23/2011 10:00a [facility] Les Cunningham M.D. 28496 715.91 Of C.MAlva 715.11 Office Visit 09/14/2011 11:00a [facility] Of Les Cunningham M.D. 62021 715.11 C.M.ACecille Office Visit 06/14/2011 2:00p [facility] Of Raman Conway M.D. 63069 715.11 CCecilleMCecilleACecille Office Visit 04/03/2011 10:45a [facility] Of Raman Conway M.D. 01598 715.11 C.MCecilleACecille Office Visit 03/19/2007 2:00p [facility] Dane Shea, 30383 721.0 Libby Metcalf Office Visit 11/03/2004 10:20a [facility] [address] 272.0 Tea Duvall Plan of Care Future Appointment(s):04/02/2018 10:00 am - Fady Jara MD at [facility] C.MDanie.02/07/2018 9:15 am - Benny Peters M.D. at [facility] [id number]/03/2018 - Ewelina Salvador M.D.M19.042 Primary osteoarthritis, left handNew Therapy:Physical TherapyFollow up:Follow up: As ooanpwI09.041 Primary osteoarthritis, right hand
--- NOTE | 2018-01-19 01:41 | ED ---
GI/ HPI - HPI Summary HPI Summary: This patient is a 72 year old M presenting to [facility] with a chief complaint of urgency to void that began three days ago. The patient rates the pain 10/10 in severity. Symptoms aggravated by nothing. Symptoms alleviated by nothing. Patient reports hematuria and bilateral flank pain. Patient denies changes in appetite, vomiting, fever, and chills. Pt reports he has had his catheter for one month. - History of Current Complaint Chief Complaint: EDUrogenitalProblems Time Seen by Provider: 01/19/18 01:33 Stated Complaint: CATH DISCOMFORT Hx Obtained From: Patient Onset/Duration: Started Days Ago, Still Present Timing: Constant Severity: Severe Current Severity: Severe Pain Intensity: 10 Associated Signs and Symptoms: Positive: Hematuria, Flank Pain. Negative: Vomiting, Fever, Change in Appetite, Chills Aggravating Factor(s): Nothing Alleviating Factor(s): Nothing - Additional Pertinent History Primary Care Physician: [id number] - Allergy/Home Medications Allergies/Adverse Reactions: Allergies Allergy/AdvReac Type Severity Reaction Status Date / Time codeine Allergy Unknown Verified 12/05/17 08:52 Reaction Details ibuprofen Allergy Unknown Verified 12/05/17 08:52 Reaction Details metronidazole [From Flagyl] Allergy Unknown Verified 01/18/18 22:49 Reaction Details morphine Allergy Unknown Verified 12/05/17 08:52 Reaction Details rosuvastatin [From Crestor] Allergy Unknown Verified 12/05/17 08:52 Reaction Details PMH/Surg Hx/FS Hx/Imm Hx Previously Healthy: No Endocrine/Hematology History: Reports: Hx Thyroid Disease Denies: Hx Diabetes Cardiovascular History: Reports: Hx Angina, 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, Hx Hypercholesterolemia, Hx Hypertension, Hx Peripheral Vascular Disease, Other Cardiovascular Problems/Disorders - CHRONIC TACHYCARDIA Denies: Hx Angioplasty, Hx Congestive Heart Failure, Hx Embolism, Hx Pacemaker/ICD Respiratory History: Reports: Other Respiratory Problems/Disorders - chronic cough Denies: Hx Asthma, Hx Chronic Obstructive Pulmonary Disease (COPD), Hx Lung Cancer, Hx Pleural Effusion, Hx Pulmonary Edema, Hx Pulmonary Embolism, Hx Seasonal Allergies, Hx Sleep Apnea GI History: Reports: Hx Gastroesophageal Reflux Disease, Hx Hiatal Hernia, Other GI Disorders Denies: Hx Irritable Bowel History: Reports: Hx Benign Prostatic Hyperplasia, Other Problems/ Disorders - [place] Denies: Hx Dialysis, Hx Kidney Infection, Hx Kidney Stones, Hx Renal Disease Musculoskeletal History: Reports: Hx Arthritis, Hx Back Problems Sensory History: Reports: Hx Contacts or Glasses, Hx Eye Injury Denies: Hx Cataracts, Hx Glaucoma, Hx Hearing Aid Opthamlomology History: Reports: Hx Contacts or Glasses, Hx Eye Injury Denies: Hx Cataracts, Hx Glaucoma Neurological History: Reports: Hx Developmental Delay, Hx Headaches, Hx Transient Ischemic Attacks (TIA), Other Neuro Impairments/Disorders - speech impediment Denies: Hx Migraine, Hx Seizures, Hx Spinal Cord Injury Psychiatric History: Reports: Hx Anxiety, Other Psychiatric Issues/Disorders Denies: Hx Depression, Hx Panic Disorder - Cancer History Cancer Type, Location and Year: Skin cancer 1999 - Surgical History Surgery Procedure, Year, and Place: None - Immunization History Date of Tetanus Vaccine: up to date Date of Influenza Vaccine: utd Infectious Disease History: No Infectious Disease History: Denies: Hx of Known/Suspected MRSA, Traveled Outside the in Last 30 Days - Family History Known Family History: Positive: Cardiac Disease, Hypertension Negative: Diabetes - Social History Occupation: Retired Lives: Alone Alcohol Use: None Hx Substance Use: No Substance Use Type: Reports: None Hx Tobacco Use: Yes Smoking Status (MU): Former Smoker Type: Cigarettes Have You Smoked in the Last Year: No Review of Systems Negative: Fever, Chills Positive: Other - Positive bilateral flank pain. Negative changes in appetite. Negative: Vomiting Positive: hematuria, urgency All Other Systems Reviewed And Are Negative: Yes Physical Exam - Summary Physical Exam Summary: Appearance: Well-appearing, Well-nourished, lying in bed comfortably Skin: Warm, dry, no obvious rash Eyes: sclera anicteric, no conjunctival pallor ENT: mucous membranes moist, pharynx appears normal Neck: Supple, nontender Respiratory: Clear to auscultation, no signs of respiratory distress Cardiovascular: Normal S1, S2. No murmurs. Normal distal pulses in tibial and radial bilaterally. Abdomen: Soft, nontender, normal active bowel sounds present Musculoskeletal: Normal, Strength/ROM Intact Neurological: A&Ox3, awake and alert, mentation is normal, speech is fluent and appropriate Psychiatric: affect is normal, does not appear anxious or depressed Triage Information Reviewed: Yes Vital Signs On Initial Exam: Initial Vitals Temp Pulse Resp BP Pulse Ox 98.4 F 115 18 108/66 95 07/13/18 22:43 01/18/18 22:43 01/18/18 22:43 01/18/18 22:43 01/18/18 22:43 Vital Signs Reviewed: Yes Diagnostics - Vital Signs Vital Signs Temp Pulse Resp BP Pulse Ox 01/19/18 01:09 97 F 111 16 124/79 95 01/18/18 22:43 98.4 F 115 18 108/66 95 - Laboratory Lab Statement: Any lab studies that have been ordered have been reviewed, and results considered in the medical decision making process. GIGU Course/Dx - Course Course Of Treatment: This is a 72-year-old man who has had a urinary catheter in for the past month. He is requesting that the removed. He has had some fairly mild gross hematuria but thinks he is able to void. Once the catheter was removed, he was able to void. He has some mild gross hematuria but I suspect this will clear up note the foreign body has been removed. The nurse also notes that his leg bag was secured fairly low and she thinks there was likely some tension on the catheter. Urinalysis shows possible infection but given the removal of foreign body, I would prefer to avoid antibiotics as the patient really does not have any dysuria. If his culture is markedly positive this could be revisited. - Diagnoses Provider Diagnoses: Urinary retention Discharge - Sign-Out/Discharge Documenting (check all that apply): Patient Departure - Discharge Plan Condition: Improved Disposition: HOME Patient Education Materials: Urinary Tract Infection in Men (ED) Referrals: Liam Patel MD [Primary Care Provider] - - Billing Disposition and Condition Condition: IMPROVED Disposition: Home
[2018-01-19 04:38] LABS: Urine Appearance Cloudy; Urine Blood 3+ (Negative); Urine Color Yellow; Urine Ketones Negative (Negative); Urine Protein 1+(30 mg/dL) (Negative); Urine Red Blood Cell 1+(3-5/hpf) (Absent); Urine Specific Gravity 1.004 (1.010-1.030); Urine Urobilinogen Negative (Negative); Urine White Blood Cell 2+(11-20/hpf) (Absent)
[2018-01-19 05:09] VITALS: BP 131/84
--- NOTE | 2018-01-21 06:50 | PN ---
Progress Note - Progress Note Date of Service: 01/21/18 Note: Patient urine culture grew Enterococcus faecalis 25-50,0000. nonsignificant culture so will not treat at this time.
--- NOTE | 2018-01-22 07:23 | ED ---
Progress - Progress Note Progress Note: Patient seen for urinary catheter obstruction and change. He had some urinary symptoms however initial provider felt that they would wait until culture returned to decide if treatment with antibiotics was necessary. Yesterday, culture was reviewed and it was decided bacterial count was low and so no antibiotic would be initiated however there are ambulatory orders for ciprofloxacin. This appears to be effective against organism. Course/Dx - Course Course Of Treatment: This is a 72-year-old man who has had a urinary catheter in for the past month. He is requesting that the removed. He has had some fairly mild gross hematuria but thinks he is able to void. Once the catheter was removed, he was able to void. He has some mild gross hematuria but I suspect this will clear up note the foreign body has been removed. The nurse also notes that his leg bag was secured fairly low and she thinks there was likely some tension on the catheter. Urinalysis shows possible infection but given the removal of foreign body, I would prefer to avoid antibiotics as the patient really does not have any dysuria. If his culture is markedly positive this could be revisited. - Diagnoses Provider Diagnoses: Urinary retention Discharge - Sign-Out/Discharge Documenting (check all that apply): Post-Discharge Follow Up - Discharge Plan Condition: Improved Disposition: HOME Patient Education Materials: Urinary Tract Infection in Men (ED) Referrals: Liam Patel MD [Primary Care Provider] - - Billing Disposition and Condition Condition: IMPROVED Disposition: Home
== END 2018-01-19 05:09 | disposition home or self-care (01) ==
LOC: ED 22:37
DX: R33.9 Retention of urine, unspecified (principal); R31.0 Gross hematuria; T85.698A Other mechanical complication of other specified internal prosthetic devices, implants and grafts, initial encounter; Z87.891 Personal history of nicotine dependence; Z88.5 Allergy status to narcotic agent; Z88.8 Allergy status to other drugs, medicaments and biological substances
CPT/HCPCS: 81003; 81015; 87077; 87086; 87186; 99282

== ENCOUNTER 2018-01-21 15:35 | Emergency (ER) | payer MEDICARE, MEDICAID ==
[2018-01-21 16:45] LABS: ABS Basophils 0.1 10^3/ul (0-0.2); ABS Eosinophils 0.2 10^3/ul (0-0.6); ABS Lymphocytes 1.2 10^3/ul (1.0-4.8); ABS Monocytes 0.7 10^3/ul (0-0.8); ABS Neutrophils 8.9 10^3/ul (1.5-7.7); ABS Nucleated RBC 0 10^3/ul; Eosinophil % 1.7 % (0-6); Hematocrit 42 % (42-52); Lymphocyte % 10.7 % (25-47); Mean Corpuscular HGB Conc 34 g/dl (31-36); Mean Corpuscular Hemoglobin 31 pg (27-31); Mean Corpuscular Volume 92 fL (80-94); Mean Platelet Volume 6.2 um3 (7.4-10.4); Nucleated Red Blood Cells % 0; Platelet Count 225 10^3/ul (150-450); Red Blood Count 4.54 10^6/ul (4.00-5.40); Red Cell Distribution Width 14 % (10.5-15)
--- NOTE | 2018-01-21 16:49 | ED ---
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 Pt states that Dr. Campbell sent him down to the ED, however when Dr. Campbell consulted, he stated that this was not true. Dr. Campbell saw the pt in his office today, and replaced his mccullough, that pt had requested to be pulled on 01/18/18 in the ED. The patient reports he cant stand up nor ambulate. The patient rates the pain 10/10 in severity. Symptoms aggravated by movement. Symptoms alleviated by nothing. Patient reports no BM for the last couple of days. The patient was seen in [facility] ED on 01/18/18 and his catheter was DC'd at pt's request. The mccullough had been in for 1 month and 25,000-50,000 Enterococcus Faecalis grew from the urine culture that was taken from the mccullough at the time it was DC'd. This was not treated because pt did not have dysuria at the time, and the mccullough had been DC'd. Dr. Campbell replaced his catheter this am which has been draining ok. Home Medications Medication Instructions Recorded Confirmed Type Cyclobenzaprine TAB* [Flexeril 10 10 mg PO BID PRN 12/15/17 12/21/17 History MG TAB*] Ferrous Sulfate TAB* 325 mg PO BID 12/15/17 12/21/17 History Furosemide TAB* [Lasix TAB*] 40 mg PO DAILY 12/15/17 12/21/17 History LORazepam TAB(*) [Ativan 1 MG TAB 2 mg PO Q6H PRN MDD 4 12/15/17 12/21/17 History (*)] Levothyroxine TAB* [Synthroid 125 125 mcg PO DAILY 12/15/17 12/21/17 History MCG TAB*] Lisinopril TAB* [Prinivil TAB 10 10 mg PO DAILY 12/15/17 12/21/17 History MG*] Omeprazole CAP* [Prilosec CAP* 20 40 mg PO BID 12/15/17 12/21/17 History MG] Ondansetron TAB* [Zofran 4 MG Tab*] 4 mg PO Q6H PRN 12/15/17 12/21/17 History Pentoxifylline CR TAB* [Trental CR 400 mg PO TID 12/15/17 12/21/17 History TAB*] Polyethylene Glycol 3350* 17 gm PO DAILY PRN 12/15/17 12/21/17 History [Miralax*] Rivaroxaban TAB(*) [Xarelto 15 15 mg PO DAILY 12/15/17 12/21/17 History mg(*)] Sucralfate TAB* [Carafate*] 1 gm PO TID 12/15/17 12/21/17 History Tamsulosin CAP* [Flomax CAP*] 0.4 mg PO BID 12/15/17 12/21/17 History Thioridazine TAB* [Mellaril 50 MG*] 50 mg PO BID 12/15/17 12/21/17 History busPIRone TAB* [Buspar TAB*] 20 mg PO TID 12/15/17 12/21/17 History rOPINIRole TAB* [Requip*] 3 mg PO TID 12/15/17 12/21/17 History traMADol TAB* [Ultram*] 100 mg PO Q8H PRN MDD 6 12/15/17 12/21/17 History DOXYcycline CAP(*) [DOXYcycline 100 mg PO BID #0 cap 12/19/17 12/21/17 Rx 100MG CAP(*)] Ciprofloxacin TAB* [Cipro 500 MG 500 mg PO BID #6 tab 12/21/17 Rx TAB*] Polyethylene Glycol 3350* 17 gm PO DAILY #12 packet 12/21/17 Rx [Miralax*] - History of Current Complaint Chief Complaint: EDFlankPain Stated Complaint: BACK PAIN Time Seen by Provider: 01/21/18 16:20 Hx Obtained From: Patient Onset/Duration: Sudden Onset, Lasting Minutes - 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, Still Present Onset/Duration: Started Minutes Ago - 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 Timing: Constant, Lasting Minutes - 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 Severity Initially: Severe Severity Currently: Severe Pain Intensity: 10 Pain Scale Used: 0-10 Numeric Character: Aching Aggravating Symptom(s): Movement Alleviating Symptom(s): Nothing Associated Signs And Symptoms: Positive: Other - constipation, mccullough catheter in place - Allergies/Home Medications Allergies/Adverse Reactions: Allergies Allergy/AdvReac Type Severity Reaction Status Date / Time codeine Allergy Unknown Verified 01/21/18 15:40 Reaction Details ibuprofen Allergy Unknown Verified 01/21/18 15:40 Reaction Details metronidazole [From Flagyl] Allergy Unknown Verified 01/21/18 15:40 Reaction Details morphine Allergy Unknown Verified 01/21/18 15:40 Reaction Details rosuvastatin [From Crestor] Allergy Unknown Verified 01/21/18 15:40 Reaction Details PMH/Surg Hx/FS Hx/Imm Hx Previously Healthy: No Endocrine/Hematology History: Reports: Hx Thyroid Disease Denies: Hx Diabetes Cardiovascular History: Reports: Hx Angina, 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, Hx Hypercholesterolemia, Hx Hypertension, Hx Peripheral Vascular Disease, Other Cardiovascular Problems/Disorders - CHRONIC TACHYCARDIA Denies: Hx Angioplasty, Hx Congestive Heart Failure, Hx Embolism, Hx Pacemaker/ICD Respiratory History: Reports: Other Respiratory Problems/Disorders - chronic cough Denies: Hx Asthma, Hx Chronic Obstructive Pulmonary Disease (COPD), Hx Lung Cancer, Hx Pleural Effusion, Hx Pulmonary Edema, Hx Pulmonary Embolism, Hx Seasonal Allergies, Hx Sleep Apnea GI History: Reports: Hx Gastroesophageal Reflux Disease, Hx Hiatal Hernia, Other GI Disorders Denies: Hx Irritable Bowel History: Reports: Hx Benign Prostatic Hyperplasia, Other Problems/ Disorders - [place] Denies: Hx Dialysis, Hx Kidney Infection, Hx Kidney Stones, Hx Renal Disease Musculoskeletal History: Reports: Hx Arthritis, Hx Back Problems Sensory History: Reports: Hx Contacts or Glasses, Hx Eye Injury Denies: Hx Cataracts, Hx Glaucoma, Hx Hearing Aid Opthamlomology History: Reports: Hx Contacts or Glasses, Hx Eye Injury Denies: Hx Cataracts, Hx Glaucoma Neurological History: Reports: Hx Developmental Delay, Hx Headaches, Hx Transient Ischemic Attacks (TIA), Other Neuro Impairments/Disorders - speech impediment Denies: Hx Migraine, Hx Seizures, Hx Spinal Cord Injury Psychiatric History: Reports: Hx Anxiety, Other Psychiatric Issues/Disorders - mental health issues Denies: Hx Depression, Hx Panic Disorder - Cancer History Cancer Type, Location and Year: Skin cancer 1999 - Surgical History Surgery Procedure, Year, and Place: None - Immunization History Date of Tetanus Vaccine: up to date Date of Influenza Vaccine: utd Infectious Disease History: No Infectious Disease History: Denies: Hx of Known/Suspected MRSA, Traveled Outside the [place] in Last 30 Days - Family History Known Family History: Positive: Cardiac Disease, Hypertension Negative: Diabetes - Social History Lives: [facility] - resident of [place] Alcohol Use: None Hx Substance Use: No Substance Use Type: Reports: None Hx Tobacco Use: Yes Smoking Status (MU): Former Smoker Type: Cigarettes Have You Smoked in the Last Year: No Review of Systems Constitutional: Negative Cardiovascular: Negative Positive: Cough Positive: Other - no BM for last couple of days Positive: other - mccullough catheter replaced today Positive: Other - severe back pain, unable to stand up or ambulate Skin: Negative Neurological: Negative Psychological: Other - developmental delay All Other Systems Reviewed And Are Negative: Yes Physical Exam - Summary Physical Exam Summary: Appearance: Well-appearing, moderate pain distress, well-nourished Skin: Warm, color reflects adequate perfusion, dry Head: Normal Head/Face inspection, atraumatic Eyes: Conjunctiva clear ENT: Normal inspection Neck: Supple, no nodes, no JVD Respiratory: Lungs clear, normal breath sounds, no respiratory distress Cardio: RRR, No murmur, pulses normal, brisk capillary refill Abdomen: Soft, nontender; no masses, no guarding, no rebound; No CVAT : mccullough in place draining clear yellow urine Bowel sounds: Present Musculoskeletal: Strength Intact/ROM intact, no calf tenderness, no edema. Psychological: Normal Neuro: Alert, muscle tone normal, no focal deficit, able to ambulate unassisted Triage Information Reviewed: Yes Vital Signs On Initial Exam: Initial Vitals Temp Pulse Resp BP Pulse Ox 99.1 F 138 22 135/92 95 01/21/18 15:36 01/21/18 15:36 01/21/18 15:36 01/21/18 15:36 01/21/18 15:36 Vital Signs Reviewed: Yes Diagnostics - Vital Signs Vital Signs Temp Pulse Resp BP Pulse Ox 01/21/18 15:36 99.1 F 138 22 135/92 95 - Laboratory Result Diagrams: 01/21/18 16:36 01/21/18 16:36 Lab Statement: Any lab studies that have been ordered have been reviewed, and results considered in the medical decision making process. - EKG 1601 Cardiac Rate: Tachycardia - 128 BPM EKG Rhythm: Sinus Rhythm ST Segment: Non-Specific Ectopy: None EKG Interpretation: right axis deviation, no acute changes EKG Comparison: No Significant Change Re-Evaluation - Re-Evaluation First Eval Re-Evaluation Time: 18:48 Change: Unchanged Comment: Still feels pain. Ask for his pain meds at [place]. Given Tramadol 50mg po, his usual pain medication. Discussed discharge plan to treat UTI, keep mccullough in place. Patient understands and agrees wtih this plan. Back Pain Course/Dx - Course Assessment/Plan: Consulted Dr. Campbell at 1829 about the patient. He says to treat the patient for his UTI. He does not think the back pain is a complaint or kidney stones. Labs unremarkable except elevated alk phos, abnormal urinalysis. Allergies noted. High blood pressure noted. Tachycardia is noted, but pt has hx chronic tachycardia and his pulse is in range for his usual vital signs. Pt medications reviewed this visit. The patient will be discharged on Cipro 500 bid x 1 week, with mccullough in place and follow up with Dr. Campbell. Continue usual pain medication, tramadol, and bowel regimen and other meds at [place]. Patient is agreeable with this plan. - Diagnoses Differential Diagnosis/HQI/PQRI: Positive: Other - elevated blood pressure under poor control, back pain, UTI, mccullough catheter, constipation Provider Diagnoses: Elevated blood pressure reading with diagnosis of hypertension, Back pain, UTI (urinary tract infection), Mccullough catheter in place, Constipation, Tachycardia - Provider Notifications Discussed Care Of Patient With: Henry Campbell Time Discussed With Above Provider: 18:29 Instructed by Provider To: Other - Consulted Dr. Campbell about the patient. He says to treat the patient for his UTI with cipro. He does not think the back pain is a complaint or kidney stones. Discharge - Sign-Out/Discharge Documenting (check all that apply): Patient Departure - home - Discharge Plan Condition: Stable Disposition: HOME Prescriptions: Ciprofloxacin TAB* [Cipro 500 MG TAB*] 500 mg PO BID #14 tab Patient Education Materials: Constipation (ED), Urinary Tract Infection in Men (ED), Acute Low Back Pain (ED) Referrals: Liam Patel MD [Primary Care Provider] - 01/28/18 Henry Campbell MD [Medical Doctor] - (if need for mccullough and UTI. ) Additional Instructions: We have given you a copy of your labs, and we talked to Dr. Campbell and Dr. Patel about your care. Keep the mccullough in place. Take Cipro for a urinary tract infection. Dr. Campbell does not feel that your back pain is from any urinary problem or kidney stones. Return to the ER if you have new or worsening symptoms. - Billing Disposition and Condition Condition: STABLE Disposition: Home
[2018-01-21 17:05] LABS: EGFR Non-African American 66.2 (>60)
[2018-01-21 18:48] LABS: Urine Appearance Cloudy; Urine Blood 2+ (Negative); Urine Color Yellow; Urine Ketones Negative (Negative); Urine Protein Negative (Negative); Urine Red Blood Cell 3+(>10/hpf) (Absent); Urine Specific Gravity 1.013 (1.010-1.030); Urine Urobilinogen Negative (Negative); Urine White Blood Cell 3+(>20/hpf) (Absent)
[2018-01-21] MEDS ORDERED: traMADol TAB* 50 MG PO ONE (19:22)
[2018-01-21 19:34] VITALS: BP 128/80
--- NOTE | 2018-01-24 07:34 | ED ---
Progress - Progress Note Progress Note: Patient's final urine culture reveals greater than 100,000 enterococcus Faecalis. Patient was started on Cipro to which organism is sensitive. No change in treatment at this time. Re-Evaluation - Re-Evaluation First Eval Re-Evaluation Time: 18:48 Comment: Still feels pain. Ask for his pain meds at [place]. Discussed discharge plan. Patient understands and agrees wtih this plan. Course/Dx - Diagnoses Provider Diagnoses: Elevated blood pressure reading with diagnosis of hypertension, Back pain, UTI (urinary tract infection), Mccullough catheter in place, Constipation - Provider Notifications Time Discussed With Above Provider: 18:29 Instructed by Provider To: Other - Consulted Dr. Campbell about the patient. He says to treat the patient for his UTI with cipro. He does not think the back pain is a complaint or kidney stones. Discharge - Sign-Out/Discharge Documenting (check all that apply): Post-Discharge Follow Up - Discharge Plan Condition: Stable Disposition: HOME Prescriptions: Ciprofloxacin TAB* [Cipro 500 MG TAB*] 500 mg PO BID #14 tab Patient Education Materials: Constipation (ED), Urinary Tract Infection in Men (ED), Acute Low Back Pain (ED) Referrals: Liam Patel MD [Primary Care Provider] - 01/28/18 Henry Campbell MD [Medical Doctor] - (if need for mccullough and UTI. ) Additional Instructions: We have given you a copy of your labs, and we talked to Dr. Campbell and Dr. Patel about your care. Keep the mccullough in place. Take Cipro for a urinary tract infection. Dr. Campbell does not feel that your back pain is from any urinary problem or kidney stones. Return to the ER if you have new or worsening symptoms. - Billing Disposition and Condition Condition: STABLE Disposition: Home
== END 2018-01-21 19:33 | disposition home or self-care (01) ==
LOC: ED 15:35
DX: N39.0 Urinary tract infection, site not specified (principal); R00.0 Tachycardia, unspecified; I10 Essential (primary) hypertension; R74.8 Abnormal levels of other serum enzymes; K59.00 Constipation, unspecified; M54.9 Dorsalgia, unspecified; Z96.0 Presence of urogenital implants; E07.9 Disorder of thyroid, unspecified; N40.0 Benign prostatic hyperplasia without lower urinary tract symptoms; Z86.718 Personal history of other venous thrombosis and embolism; Z86.73 Personal history of transient ischemic attack (TIA), and cerebral infarction without residual deficits; Z87.891 Personal history of nicotine dependence; Z88.5 Allergy status to narcotic agent; Z88.6 Allergy status to analgesic agent; Z88.8 Allergy status to other drugs, medicaments and biological substances
CPT/HCPCS: 36415; 80053; 81003; 81015; 85025; 87077; 87086; 87186; 93005; 99282; A9270-GY

== ENCOUNTER 2018-01-22 11:50 | Emergency (ER) | payer MEDICARE, MEDICAID ==
--- NOTE | 2018-01-22 12:05 | ED ---
Abdominal Pain/Male - HPI Summary HPI Summary: 72 y/o male presents to the ED c/o constant L side flank and ABD pain starting at 05:00 this morning. Pt had trouble getting up due to pain. Pain rated severe. Aggravated with bending over. Never had a similar episode. Pt states this is the "worst pain in his entire life". Catheter in place. This is scribe Can Cooney documenting for attending physician Dorian Garcia M.D. - History of Current Complaint Stated Complaint: SIDE PAIN Time Seen by Provider: 01/22/18 11:59 Hx Obtained From: Patient Onset/Duration: Sudden Onset Timing: Constant, Lasting Hours Severity Initially: Severe Severity Currently: Severe Location: Discrete At: LLQ, Flank - L side Aggravating Factor(s): Movement, Deep Breaths Alleviating Factor(s): Nothing Associated Signs And Symptoms: Positive: Negative - Allergies/Home Medications Allergies/Adverse Reactions: Allergies Allergy/AdvReac Type Severity Reaction Status Date / Time codeine Allergy Unknown Verified 01/21/18 15:40 Reaction Details ibuprofen Allergy Unknown Verified 01/21/18 15:40 Reaction Details metronidazole [From Flagyl] Allergy Unknown Verified 01/21/18 15:40 Reaction Details morphine Allergy Unknown Verified 01/21/18 15:40 Reaction Details rosuvastatin [From Crestor] Allergy Unknown Verified 01/21/18 15:40 Reaction Details PMH/Surg Hx/FS Hx/Imm Hx Previously Healthy: No Endocrine/Hematology History: Reports: Hx Thyroid Disease Denies: Hx Diabetes Cardiovascular History: Reports: Hx Angina, 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, Hx Hypercholesterolemia, Hx Hypertension, Hx Peripheral Vascular Disease, Other Cardiovascular Problems/Disorders - CHRONIC TACHYCARDIA Denies: Hx Angioplasty, Hx Congestive Heart Failure, Hx Embolism, Hx Pacemaker/ICD Respiratory History: Reports: Other Respiratory Problems/Disorders - chronic cough Denies: Hx Asthma, Hx Chronic Obstructive Pulmonary Disease (COPD), Hx Lung Cancer, Hx Pleural Effusion, Hx Pulmonary Edema, Hx Pulmonary Embolism, Hx Seasonal Allergies, Hx Sleep Apnea GI History: Reports: Hx Gastroesophageal Reflux Disease, Hx Hiatal Hernia, Other GI Disorders Denies: Hx Irritable Bowel History: Reports: Hx Benign Prostatic Hyperplasia, Other Problems/ Disorders - [place] Denies: Hx Dialysis, Hx Kidney Infection, Hx Kidney Stones, Hx Renal Disease Musculoskeletal History: Reports: Hx Arthritis, Hx Back Problems Sensory History: Reports: Hx Contacts or Glasses, Hx Eye Injury Denies: Hx Cataracts, Hx Glaucoma, Hx Hearing Aid Opthamlomology History: Reports: Hx Contacts or Glasses, Hx Eye Injury Denies: Hx Cataracts, Hx Glaucoma Neurological History: Reports: Hx Developmental Delay, Hx Headaches, Hx Transient Ischemic Attacks (TIA), Other Neuro Impairments/Disorders - speech impediment Denies: Hx Migraine, Hx Seizures, Hx Spinal Cord Injury Psychiatric History: Reports: Hx Anxiety, Other Psychiatric Issues/Disorders Denies: Hx Depression, Hx Panic Disorder - Cancer History Cancer Type, Location and Year: Skin cancer 1999 - Surgical History Surgery Procedure, Year, and Place: None - Immunization History Date of Tetanus Vaccine: up to date Date of Influenza Vaccine: utd Infectious Disease History: Denies: Hx of Known/Suspected MRSA, Traveled Outside the [place] in Last 30 Days - Family History Known Family History: Positive: Cardiac Disease, Hypertension Negative: Diabetes - Social History Alcohol Use: None Hx Substance Use: No Substance Use Type: Reports: None Hx Tobacco Use: Yes Smoking Status (MU): Former Smoker Type: Cigarettes Have You Smoked in the Last Year: No Review of Systems Constitutional: Negative Eyes: Negative ENT: Negative Cardiovascular: Negative Respiratory: Negative Positive: Abdominal Pain Positive: flank pain Musculoskeletal: Negative Skin: Negative Neurological: Negative Psychological: Normal All Other Systems Reviewed And Are Negative: Yes Physical Exam - Summary Physical Exam Summary: Appearance: The patient is well-nourished in no acute distress and in no acute pain. Skin: The skin is warm and dry and skin color reflects adequate perfusion. HEENT: The head is normocephalic and atraumatic. The pupils are equal and reactive. The conjunctivae are clear and without drainage. Nares are patent and without drainage. Mouth reveals moist mucous membranes and the throat is without erythema and exudate. The external ears are intact. The ear canals are patent and without drainage. The tympanic membranes are intact. Neck: The neck is supple with full range of motion and non-tender. There are no carotid bruits. There is no neck vein distension. Respiratory: Chest is non-tender. Lungs are clear to auscultation and breath sounds are symmetrical and equal. Cardiovascular: Heart is regular rate and rhythm. There is no murmur or rub auscultated. There is no peripheral edema and pulses are symmetrical and equal. Abdomen: The abdomen is soft and non-tender. There are normal bowel sounds heard in all four quadrants and there is no organomegaly palpated. Musculoskeletal: There is no back tenderness noted. Extremities are non-tender with full range of motion. There is good capillary refill. There is no peripheral edema or calf tenderness elicited. Pt is tender at his L lateral lower chest. Neurological: Patient is alert and oriented to person, place and time. The patient has symmetrical motor strength in all four extremities. Cranial nerves are grossly intact. Deep tendon reflexes are symmetrical and equal in all four extremities. Psychiatric: The patient has an appropriate affect and does not exhibit any anxiety or depression. Triage Information Reviewed: Yes Vital Signs Reviewed: Yes Diagnostics - Laboratory Result Diagrams: 01/22/18 12:29 01/22/18 12:29 Lab Statement: Any lab studies that have been ordered have been reviewed, and results considered in the medical decision making process. - Radiology CXR Xray Interpretation: No Acute Changes - MILD CHRONIC LEFT BASILAR AIRSPACE DISEASE, UNCHANGED. HIATAL HERNIA. Radiology Interpretation Completed By: Radiologist - CT ABD/PEL CT CT Interpretation: No Acute Changes - No definite obstructive uropathy is noted although nonobstructing calculi are noted in both kidneys. Complex cystic structure lower pole right kidney is unchanged from previous exam of December 04, 2017. Bilateral pleural effusions with an intrathoracic stomach is noted. CT Interpretation Completed By: Radiologist Abdominal Pain Fem Course/Dx - Course Course Of Treatment: Mr. Gasca presented to the emergency department with a left flank pain that was worsened by movement and deep breath. He had point tenderness in his posterior lateral lower chest and normal vitals. His workup was negative for any acute pathology and he was given a pain pill. It was recommended that he follow-up with his PCP for additional pain control. He is on multiple medications including tramadol. - Diagnoses Provider Diagnoses: Chest wall pain Discharge - Sign-Out/Discharge Documenting (check all that apply): Patient Departure - Discharge Plan Condition: Stable Disposition: HOME Patient Education Materials: Chest Wall Pain (ED) Referrals: Liam Patel MD [Primary Care Provider] - 4 Days (PLEASE F/U IN 3-5 DAYS) Additional Instructions: RETURN TO THE ED FOR CHANGING/WORSENING SYMPTOMS - Billing Disposition and Condition Condition: STABLE Disposition: Home
[2018-01-22 12:32] LABS: Urine Appearance Clear; Urine Blood 2+ (Negative); Urine Color Straw; Urine Ketones Negative (Negative); Urine Protein Negative (Negative); Urine Red Blood Cell 2+(6-10/hpf) (Absent); Urine Specific Gravity 1.005 (1.010-1.030); Urine Urobilinogen Negative (Negative); Urine White Blood Cell 1+(6-10/hpf) (Absent)
[2018-01-22 12:41] LABS: Hematocrit 42 % (42-52); Hemoglobin 14.1 g/dl (14.0-18.0); Mean Corpuscular HGB Conc 34 g/dl (31-36); Mean Corpuscular Hemoglobin 31 pg (27-31); Mean Corpuscular Volume 92 fL (80-94); Platelet Count 216 10^3/ul (150-450); Red Blood Count 4.51 10^6/ul (4.00-5.40); Red Cell Distribution Width 13 % (10.5-15); White Blood Count 9.5 10^3/ul (3.5-10.8)
--- NOTE | 2018-01-22 12:47 | RAD ---
INDICATION: Chest pain COMPARISON: December 21, 2017 TECHNIQUE: PA and lateral dual-energy views were obtained. FINDINGS: Bones/Soft Tissues: There are no acute bony findings. Cardiomediastinal: The cardiomediastinal silhouette is normal. Lungs: There is again airspace disease in left lung base. This appears little changed, however. The remaining lung skaggs are clear. Pleura: There is a small left-sided pleural effusion, unchanged. Other: There is a retrocardiac density compatible with hiatal hernia IMPRESSION: MILD CHRONIC LEFT BASILAR AIRSPACE DISEASE, UNCHANGED. HIATAL HERNIA.
[2018-01-22 13:05] LABS: EGFR Non-African American 72.2 (>60)
[2018-01-22 13:47] LABS: ABS Basophils 0.1 10^3/ul (0-0.2); ABS Eosinophils 0.2 10^3/ul (0-0.6); ABS Lymphocytes 1.8 10^3/ul (1.0-4.8); ABS Monocytes 0.6 10^3/ul (0-0.8); ABS Neutrophils 6.9 10^3/ul (1.5-7.7); ABS Nucleated RBC 0 10^3/ul; Nucleated Red Blood Cells % 0
[2018-01-22 13:48] LABS: ABS Basophils 0 10^3/ul (0-0.2); ABS Neutrophils 6.8 10^3/ul (1.5-7.7); Monocytes % 4 % (0-7)
--- NOTE | 2018-01-22 13:49 | RAD ---
Indication: Left flank pain. CT of the abdomen and pelvis was performed without oral or IV contrast administration. Coronal and sagittal reconstructed images were obtained. Lung bases demonstrate bibasilar atelectasis. Small pleural effusions are noted. The heart demonstrates no pericardial There is a intrathoracic stomach noted. Liver is normal in size. No focal lesions or intrahepatic duct dilatation is noted. The gallbladder demonstrates no calcified gallstones. No pericholecystic fluid or wall thickening is noted. The pancreas demonstrates no mass or pancreatic duct dilatation. The spleen is normal in size. Bilateral adrenal hyperplasia is noted. The kidneys demonstrate no definite hydronephrosis of either kidney. Complex cystic structure lower pole of the right kidney is unchanged in size with some calcifications. This measures 3.1 cm. Cortical cysts are noted in the left kidney. Nonobstructing calculi are noted in both kidneys. CT of the pelvis demonstrates no pelvic adenopathy. Air distended colon noted. Stool is noted throughout the colon. No hernia is noted. No pelvic masses are noted. The urinary bladder is collapsed. IMPRESSION: No definite obstructive uropathy is noted although nonobstructing calculi are noted in both kidneys. Complex cystic structure lower pole right kidney is unchanged from previous exam of December 04, 2017. Bilateral pleural effusions with an intrathoracic stomach is noted.
[2018-01-22] MEDS ORDERED: oxyCODONE/Acetamin 5/325 MG* TAB PO ONE (14:27)
[2018-01-22 15:23] VITALS: BP 129/89
== END 2018-01-22 14:57 | disposition home or self-care (01) ==
LOC: ED 11:50
DX: R07.89 Other chest pain (principal); Z87.891 Personal history of nicotine dependence; Z86.718 Personal history of other venous thrombosis and embolism; Z79.899 Other long term (current) drug therapy; Z88.5 Allergy status to narcotic agent; Z88.6 Allergy status to analgesic agent; Z88.8 Allergy status to other drugs, medicaments and biological substances
CPT/HCPCS: 36415; 71046; 74176; 80053; 81003; 83605; 83690; 85025; 85060; 86140; 99283; A9270-GY

== ENCOUNTER 2018-01-26 07:21 | Inpatient (IN) | payer MEDICARE, MEDICAID ==
--- NOTE | 2018-01-26 07:57 | ED ---
HPI Chest Pain - HPI Summary HPI Summary: This is yue Shaffer documenting for attending Dr. Marlen Hernandez MD. The patient is a 72 y/o M BIBA to [facility] from [place] c/o CP that started this morning at approximately 02:00 today and had worsening throughout the morning. This pain was alleviated in the ambulance with NTG and aspirin. He states his usual HR is 100-110 BPM. He does not wear O2 at home. Per triage note , the pt also has symptoms of SOB and dizziness. He has hx of blood clot in his leg, but he has never had an KS. He has fhx of cardiac disease. He additionally c/o severe back pain, rated 10/10, on the lower left side that radiates to the center of his back, which started in the last few days. He states he has never had this pain before, although he presented to [facility] on 01/21/18 and 01/22/18 for the same symptoms. He was prescribed Percocet, which he states relieved his pain completely. The pt uses a walker at home, and he denies falling. He also has epigastric and umbilical pain. He denies hx of kidney stones, but has had a hernia in the past. He is currently being treated for a UTI with Ciprofloxacin as prescribed by Dr. Mercer on 01/21/18. He has not followed up with the orthopedist as advised. - History of Current Complaint Chief Complaint: EDChestPainROMI Time Seen by Provider: 01/26/18 07:42 Hx Obtained From: Patient Onset/Duration: Started Hours Ago - CP started this morning, Started Days Ago - back and abd pain started a few days ago, Still Present, Resolved - CP has been resolved in the ambulance Timing: Lasting Days Initial Severity: Moderate Current Severity: Severe - back pain is severe, CP has been resolved Pain Intensity: 10 Pain Scale Used: 0-10 Numeric Chest Pain Location: Diffuse Chest Pain Radiates: No Aggravating Factor(s): Nothing Alleviating Factor(s): Other: - NTG, aspirin, Percocet Associated Signs and Symptoms: Positive: Chest Pain, Dizziness, Shortness of Breath, Back Pain - left-sided radiating to midline, Other: - umbilical and epigastric pain - Additional Pertinent History Primary Care Physician: JULIETTE - Allergy/Home Medications Allergies/Adverse Reactions: Allergies Allergy/AdvReac Type Severity Reaction Status Date / Time codeine Allergy Unknown Verified 01/26/18 07:26 Reaction Details ibuprofen Allergy Unknown Verified 01/26/18 07:26 Reaction Details metronidazole [From Flagyl] Allergy Unknown Verified 01/26/18 07:26 Reaction Details morphine Allergy Unknown Verified 01/26/18 07:26 Reaction Details rosuvastatin [From Crestor] Allergy Unknown Verified 01/26/18 07:26 Reaction Details Home Medications: Home Medications Finasteride TAB* [Proscar TAB*] 5 mg PO DAILY 01/26/18 [History Confirmed ] Sennosides/Docusate Sodium [Senna-Docusate Sodium Tablet] 2 each PO BEDTIME [History Confirmed 01/26/18] PMH/Surg Hx/FS Hx/Imm Hx Endocrine/Hematology History: Reports: Hx Thyroid Disease Denies: Hx Diabetes Cardiovascular History: Reports: Hx Angina, 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, Hx Hypercholesterolemia, Hx Hypertension, Hx Peripheral Vascular Disease, Other Cardiovascular Problems/Disorders - CHRONIC TACHYCARDIA Denies: Hx Angioplasty, Hx Congestive Heart Failure, Hx Embolism, Hx Pacemaker/ICD Respiratory History: Reports: Other Respiratory Problems/Disorders - chronic cough Denies: Hx Asthma, Hx Chronic Obstructive Pulmonary Disease (COPD), Hx Lung Cancer, Hx Pleural Effusion, Hx Pulmonary Edema, Hx Pulmonary Embolism, Hx Seasonal Allergies, Hx Sleep Apnea GI History: Reports: Hx Gastroesophageal Reflux Disease, Hx Hiatal Hernia, Other GI Disorders Denies: Hx Irritable Bowel History: Reports: Hx Benign Prostatic Hyperplasia, Other Problems/ Disorders - [place] Denies: Hx Dialysis, Hx Kidney Infection, Hx Kidney Stones, Hx Renal Disease Musculoskeletal History: Reports: Hx Arthritis, Hx Back Problems Sensory History: Reports: Hx Contacts or Glasses, Hx Eye Injury Denies: Hx Cataracts, Hx Glaucoma, Hx Hearing Aid Opthamlomology History: Reports: Hx Contacts or Glasses, Hx Eye Injury Denies: Hx Cataracts, Hx Glaucoma Neurological History: Reports: Hx Developmental Delay, Hx Headaches, Hx Transient Ischemic Attacks (TIA), Other Neuro Impairments/Disorders - speech impediment Denies: Hx Migraine, Hx Seizures, Hx Spinal Cord Injury Psychiatric History: Reports: Hx Anxiety, Other Psychiatric Issues/Disorders Denies: Hx Depression, Hx Panic Disorder - Cancer History Cancer Type, Location and Year: Skin cancer 1999 - Surgical History Surgery Procedure, Year, and Place: None - Immunization History Date of Tetanus Vaccine: up to date Date of Influenza Vaccine: utd Infectious Disease History: No Infectious Disease History: Denies: Hx of Known/Suspected MRSA, Traveled Outside the [place] in Last 30 Days - Family History Known Family History: Positive: Cardiac Disease, Hypertension Negative: Diabetes - Social History Alcohol Use: None Hx Substance Use: No Substance Use Type: Reports: None Hx Tobacco Use: Yes Smoking Status (MU): Former Smoker Type: Cigarettes Have You Smoked in the Last Year: No Review of Systems Positive: Other - dizziness Positive: Chest Pain Positive: Shortness Of Breath Positive: Abdominal Pain - epigastric and umbilical Positive: Other - left-sided back pain that radiates to midline of back All Other Systems Reviewed And Are Negative: Yes Physical Exam - Summary Physical Exam Summary: GENERAL: Patient is a well developed and nourished male who is lying comfortable in the stretcher. Patient is not in any acute respiratory distress. HEAD AND FACE: Normocephalic EYES: PERRLA, EOMI x 2. EARS: Hearing grossly intact. MOUTH: Oropharynx within normal limits. NECK: Supple, trachea is midline, no adenopathy, no JVD, no carotid bruit. CHEST: Symmetric, no tenderness at palpation LUNGS: Clear to auscultation bilaterally. No wheezing or crackles. CVS: Regular rate and rhythm, S1 and S2 present, no murmurs or gallops appreciated. ABDOMEN: Umbilical hernia that is easily reducible. Bowel sounds are normal. No abdominal abnormal pulsations. BACK: TTP along the L-S spine EXTREMITIES: Full ROM in all major joints, no edema, no cyanosis or clubbing. Tenderness to palpation along left hip and left CVA area. NEURO: Alert and oriented x 3. No acute neurological deficits. Speech is normal and follows commands. 5/5 motor of b/l lower extremity SKIN: Dry and warm Triage Information Reviewed: Yes Vital Signs On Initial Exam: Initial Vitals Temp Pulse Resp BP Pulse Ox 98.3 F 112 28 109/76 92 01/26/18 07:22 01/26/18 07:22 01/26/18 07:22 01/26/18 07:22 01/26/18 07:22 Vital Signs Reviewed: Yes Diagnostics - Vital Signs Vital Signs Temp Pulse Resp BP Pulse Ox 01/26/18 07:51 96 01/26/18 07:22 98.3 F 112 28 109/76 92 - Laboratory Result Diagrams: 01/27/18 05:53 01/27/18 05:53 Lab Statement: Any lab studies that have been ordered have been reviewed, and results considered in the medical decision making process. - Radiology CXR Xray Interpretation: Positive (See Comments) - 1. Stigmata of obstructive lung disease. No acute pulmonary or cardiac process evident. 2. Large chronic hiatal hernia with associated LEFT basilar atelectasis. ED physician has reviewed this report. Radiology Interpretation Completed By: Radiologist - CT CTA Chest/Thorax CT Interpretation: Positive (See Comments) - 1. Negative for pulmonary embolism. 2. Very small bilateral dependent pleural effusions with proportional atelectasis and additional compressive atelectasis due to the chronic large hiatal hernia primarily affecting the LEFT lower lobe. 3. Mild superior endplate compression fracture at the T6 vertebral body is new compared with October 21, 2017 exam. 4. Moderately severe anterior and middle column superior endplate compression fracture at the L1 vertebral body is new compared with the prior exam appears acute with mild paravertebral infiltrative hematoma and up to 0.7 cm retropulsion of the middle column with resulting moderate compromise of the central spinal canal. 5. Degenerative spondylosis and facet joint osteoarthritis with resulting mild severe central canal stenosis and moderate RIGHT and mild LEFT foraminal stenosis at L4-L5. ED physician has reviewed this report. CT Interpretation Completed By: Radiologist Lumbar/Spine CT Interpretation: Positive (See Comments) - 1. Negative for pulmonary embolism. 2. Very small bilateral dependent pleural effusions with proportional atelectasis and additional compressive atelectasis due to the chronic large hiatal hernia primarily affecting the LEFT lower lobe. 3. Mild superior endplate compression fracture at the T6 vertebral body is new compared with October 21, 2017 exam. 4. Moderately severe anterior and middle column superior endplate compression fracture at the L1 vertebral body is new compared with the prior exam appears acute with mild paravertebral infiltrative hematoma and up to 0.7 cm retropulsion of the middle column with resulting moderate compromise of the central spinal canal. 5. Degenerative spondylosis and facet joint osteoarthritis with resulting mild severe central canal stenosis and moderate RIGHT and mild LEFT foraminal stenosis at L4-L5. ED physician has reviewed this report. CT Interpretation Completed By: Radiologist - EKG 07:24 Cardiac Rate: Tachycardia - 114 BPM EKG Rhythm: Sinus Tachycardia EKG Interpretation: Right axis deviation. No ST elevation. Re-Evaluation - Re-Evaluation First Eval Re-Evaluation Time: 11:00 Change: Unchanged Comment: I spoke with the pt concerning positive imaging results and labwork. I told the pt that he needs to be admitted to [facility] for further care. He understands the need for admission and agrees with this plan. Chest Pain Course/Dx - Course Course Of Treatment: The patient is a 72 y/o M BIBA from [place] c/o CP, low left back pain, and epigastric/umbilical abd pain starting a few days ago. He additionally c/o SOB and dizziness. The CP was resolved in the ambulance with NTG and aspirin. The back pain is alleviated by Percocet, which was prescribed to him in the ED when he presented on 01/22/18. He is also currently on Ciprofloxacin for UTI diagnosed on 01/21/18 in the ED. He has hx of blood clot in leg and hernia. He uses a walker and denies falling recently. Medications reviewed. Allergies noted. In the ED course, the pt was administered PO Percocet 5/325 mg, IV Omnipaque Contrast 74 ml, IV Zofran 4mg, IV Fentanyl 50mcg. EKG reveals tachycardia at 114 BPM and right axis deviation, but is otherwise normal. CXR is positive for stigmata of obstructive lung disease and chronic hiatal hernia. CTA Chest/Thorax and CT Spine/Lumbar both reveal fractures in T6 and L1, infiltrative hematoma, hiatal hernia, and pleural effusions. Bloodwork shows elevated D-dimer and low lymphocytes. Pt is diagnosed with L1 fracture. I spoke with Dr. Carrasco, neurosurgery, at 11:12 who said to admit the pt, and he would take care of him. Dr. Isbell, hospitialist , was consulted at 11:23, and he accepts the pt for admission. The patient understands the need for admission, and he agrees with this plan. - Diagnoses Provider Diagnoses: L1 vertebral fracture - Provider Notifications Discussed Care Of Patient With: Benny Carrasco - I also spoke with Dr. Isbell, who accepted the pt for admission at 11:23. Time Discussed With Above Provider: 11:12 Admit/Transition Orders Completed By ED Provider: Yes Discharge - Sign-Out/Discharge Documenting (check all that apply): Patient Departure - Pt will be admitted to [facility] for further care by Dr. Carrasco and Dr. Isbell. - Discharge Plan Condition: Stable Disposition: ADMITTED TO [facility] - Billing Disposition and Condition Condition: STABLE Disposition: Admitted to [facility]
[2018-01-26 08:10] LABS: ABS Basophils 0 10^3/ul (0-0.2); ABS Eosinophils 0.2 10^3/ul (0-0.6); ABS Monocytes 0.5 10^3/ul (0-0.8); ABS Neutrophils 5.2 10^3/ul (1.5-7.7); ABS Nucleated RBC 0 10^3/ul; Eosinophil % 3.1 % (0-6); Hematocrit 39 % (42-52); Hemoglobin 13.2 g/dl (14.0-18.0); Lymphocyte % 14.3 % (25-47); Mean Corpuscular HGB Conc 34 g/dl (31-36); Mean Corpuscular Hemoglobin 31 pg (27-31); Mean Corpuscular Volume 92 fL (80-94); Mean Platelet Volume 5.8 um3 (7.4-10.4); Nucleated Red Blood Cells % 0; Platelet Count 230 10^3/ul (150-450); Red Cell Distribution Width 14 % (10.5-15)
[2018-01-26 08:19] LABS: INR 1.33 (0.77-1.02)
[2018-01-26 08:28] LABS: EGFR Non-African American 64.2 (>60)
--- NOTE | 2018-01-26 08:53 | RAD ---
Indication: Chest pain. Chronic tachycardia. Chronic cough. History of tobacco use. Comparison: January 22, [address] January 22, 2018 chest radiograph. Technique: Upright AP 0815 hours Report: Large hiatal hernia with associated LEFT basilar atelectasis without change. No additional pulmonary consolidation evident. Rarefaction of interstitial markings. Negative for pleural effusion or pneumothorax. Negative for cardiomegaly. Unremarkable central pulmonary vasculature. Markedly advanced arthropathy of the shoulders. IMPRESSION: #. Stigmata of obstructive lung disease. No acute pulmonary or cardiac process evident. #. Large chronic hiatal hernia with associated LEFT basilar atelectasis.
[2018-01-26] MEDS ORDERED: oxyCODONE/Acetamin 5/325 MG* TAB PO ONE (09:00)
[2018-01-26] MEDS: Iohexol 350* (CONTRAST) 500 ML MDV IV SCH (09:50)
--- NOTE | 2018-01-26 10:24 | RAD ---
INDICATION: Chest and back pain. Shortness of breath. COMPARISON: January 26, 2018 chest radiograph and October 21, 2017 CT. TECHNIQUE: Multidetector CT images were obtained from the lung apices to the upper abdomen with 74 mL Omnipaque 350 IV contrast. Pulmonary angiogram protocol. 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 Noncontrast CT lumbar sacral spine with multiplanar reformation. REPORT: Very small bilateral dependent pleural effusions with proportional atelectasis and additional compressive atelectasis due to the chronic large hiatal hernia primarily affecting the LEFT lower lobe. No alveolar consolidation to raise concern for pneumonia. No suspicious focal pulmonary lesion. Negative for pneumothorax. Negative for thoracic lymphadenopathy, cardiomegaly, or pericardial effusion. Normal diameter thoracic aorta with minimal atherosclerotic plaque. Negative for aortic dissection. No filling defects are identified from the main to the subsegmental pulmonary arteries to indicate presence of a pulmonary embolism. No suspicious visceral finding at the visualized upper abdomen. Mild superior endplate compression fracture at the T6 vertebral body is new compared with October 21, 2017 exam. Moderately severe anterior and middle column superior endplate compression fracture at the L1 vertebral body is new compared with the prior exam appears acute with mild paravertebral infiltrative hematoma and up to 0.7 cm retropulsion of the middle column with resulting moderate compromise of the central spinal canal. Negative for additional fracture of the lumbar sacral spine. Mild grade 1 degenerative L4-L5 anterolisthesis. Severe L4-L5 disc space narrowing with associated vacuum disc phenomenon. Mild annular disc bulge and severe facet ligamentous hypertrophic arthropathy results in moderately severe central canal and moderate RIGHT and mild LEFT foraminal stenosis at L4-L5. IMPRESSION: #. Negative for pulmonary embolism. #. Very small bilateral dependent pleural effusions with proportional atelectasis and additional compressive atelectasis due to the chronic large hiatal hernia primarily affecting the LEFT lower lobe. #. Mild superior endplate compression fracture at the T6 vertebral body is new compared with October 21, 2017 exam. #. Moderately severe anterior and middle column superior endplate compression fracture at the L1 vertebral body is new compared with the prior exam appears acute with mild paravertebral infiltrative hematoma and up to 0.7 cm retropulsion of the middle column with resulting moderate compromise of the central spinal canal. #. Degenerative spondylosis and facet joint osteoarthritis with resulting mild severe central canal stenosis and moderate RIGHT and mild LEFT foraminal stenosis at L4-L5. Results discussed with Dr. Hernandez 01/26/2018 10:22 AM EDT
[2018-01-26] MEDS ORDERED: fentaNYL* 50 MCG/ML 2 ML VIAL (100 MCG VIAL) IV SLOW PU ONE (10:51)
[2018-01-26] MEDS ORDERED: Ondansetron INJ* 2 MG/ML VIAL IV ONE (10:56)
[2018-01-26] MEDS ORDERED: Al Hydrox/Mg Hydrox/Simet LIQ* 30 ML UDC PO PRN (11:51)
[2018-01-26] MEDS ORDERED: Ondansetron INJ* 2 MG/ML VIAL IV PRN (11:51)
[2018-01-26] MEDS ORDERED: Acetaminophen TAB* 325 MG PO PRN (11:51)
[2018-01-26] MEDS ORDERED: Albuterol 2.5 MG/3 ML NEB.SOL* (0.083%) INH PRN (11:51)
[2018-01-26] MEDS ORDERED: Polyethylene Glycol 3350* 17 GM PACKET PO PRN (11:56)
[2018-01-26] MEDS ORDERED: Rivaroxaban TAB(*) 15 MG PO SCH (12:00)
[2018-01-26] MEDS ORDERED: traMADol TAB* 50 MG PO SCH (12:00)
[2018-01-26] MEDS ORDERED: HYDROmorphone INJ* 0.5 MG/0.5 ML SYRINGE IV SLOW PU PRN (12:01)
--- NOTE | 2018-01-26 13:44 | HP ---
AMENDED REPORT NOW INCLUDES COSIGNER DESIGNATION - ESIGNED BEFORE ADJUSTMENT CC: Dr. Patel; Dr. Carrasco * ADMISSION HISTORY AND PHYSICAL: DATE OF ADMISSION: 01/26/18 ATTENDING HOSPITALIST: Mohinder Isbell MD * (DICTATED BY MANUEL STOVER) PRIMARY CARE PHYSICIAN: Dr. Patel. CHIEF COMPLAINT: Back pain, chest pain. HISTORY OF PRESENT ILLNESS: Mr. Gasca is a 72-year-old gentleman with past medical history significant for hypertension, hyperlipidemia, hypothyroidism, GERD and mild cognitive impairment, who presented to the emergency room today with complaints of worsening back pain for the past week. The patient notes that he has been having issues with lower back pain for quite some time; however , it has gotten worse in the past week. He denies any fall or doing anything to aggravate his symptoms. He also notes associated chest pain and occasional shortness of breath. He was seen in the emergency room a couple of days ago for the same reason with negative x-rays noted and he was given Percocet that seemed to help his pain and he states that he feels like he is relapsing and was seeking more pain medication upon presentation. He also described occasional chest pain mostly to his posterior thoracic area, not substernal chest pain and not radiated anywhere else. He also reports occasional epigastric discomfort from a known hiatal hernia that he had as well as GERD symptoms that usually well tolerated using proton pump inhibitor twice a day. Given his ongoing symptoms, he was evaluated in the emergency room and had laboratory workup that was essentially unremarkable. He was noted to have elevated D-dimer for which he had a CTA of the chest and thorax and fortunately there was no evidence of PE. The patient has been on Xarelto for a period of time due to known history of sinus tachycardia. He had been a patient of Dr. Moreno in the past and according to the records his last echo was done in spring with normal ventricular function and EF of 60% to 65%. The patient had EKG done that revealed sinus tachycardia without any ST changes and had negative troponin as well. Given his ongoing lower back pain, the patient had lumbar spine CT that revealed new superior endplate compression fracture at the L1 vertebral body with some retropulsion of the middle column with resulting moderate compromise of the central spinal cord. He also had a compression fracture at T6 vertebral body level that was new as well. Given his ongoing symptoms of back pain as well as the findings of the CT scan of his lumbar spine, we were asked to see the patient for admission and also the ED provider has contacted Dr. Carrasco to see the patient for consultation from a neurosurgical perspective. PAST MEDICAL HISTORY: As mentioned above, significant for: 1. Hypertension. 2. GERD. 3. Anxiety. 4. Developmental delay/cognitive impairment. 5. Chronic leukocytosis. 6. Sinus tachycardia. 7. Dysarthria. 8. Hypothyroidism. 9. Restless legs syndrome. 10. Benign prostatic hypertrophy with history of urinary retention for which he had an indwelling Flynn catheter for the past 2 months. PAST SURGICAL HISTORY: None. CURRENT MEDICATIONS: His medications from [facility] where he has been there since October of 2016 include the followin. BuSpar 20 mg p.o. t.i.d. 2. Flexeril 10 mg p.o. b.i.d. as needed for back spasm. 3. Ferrous sulfate 325 mg p.o. b.i.d. 4. Proscar 5 mg p.o. daily. 5. Lasix 40 mg p.o. daily. 6. Synthroid 125 mcg p.o. daily. 7. Lisinopril 10 mg p.o. daily. 8. Ativan 1 mg p.o. q.6 hours as needed for anxiety. 9. Prilosec 40 mg p.o. b.i.d. 10. Zofran 4 mg p.o. q.6 hours as needed for nausea. 11. Trental CR 400 mg p.o. t.i.d. 12. Xarelto 15 mg p.o. daily. 13. Requip 3 mg p.o. t.i.d. 14. Senna 2 tablets p.o. q.h.s. 15. Carafate 1 g p.o. t.i.d. 16. Flomax 0.4 mg p.o. b.i.d. 17. Mellaril 50 mg p.o. b.i.d. 18. Ultram 50 mg p.o. q.4 hours as needed for pain. 19. Cipro 500 mg p.o. b.i.d. 20. MiraLAX 17 g p.o. daily. ALLERGIES: Multiple, including CODEINE, IBUPROFEN, METRONIDAZOLE, MORPHINE, and STATINS. FAMILY HISTORY: Father with history of coronary artery disease and AAA. Mother with hypertension and palpitations. SOCIAL HISTORY: The patient is a former smoker who used to smoke 1 pack per day for 10 years and quit back in 1972. He denies alcohol or illicit drug use. He has known cognitive impairment; however, has been relatively functional since he resides at [facility] since October of 2016. His brother, Yuriy, is a local resident and he carries the healthcare proxy. REVIEW OF SYSTEMS: See HPI. Otherwise, 14 points review of systems were evaluated and were essentially negative. PHYSICAL EXAMINATION GENERAL: He is a pleasant, older gentleman, appears comfortable and in no acute distress or discomfort at the time of admission. VITAL SIGNS: Revealed temperature of 98.3, pulse of 101, blood pressure of 109/ 76, respirations of 21 with O2 sats of 100% on room air. HEENT: Head is normocephalic, atraumatic. Sclerae anicteric. PERRLA. EOMs intact. Oropharynx is pink and moist. NECK: Supple. Trachea midline. No cervical adenopathy or thyromegaly. LUNGS: Clear to auscultation bilaterally. HEART: Regular rate with mildly fast rhythm. Normal S1 and S1 without rubs, murmurs, or gallops. BACK: With normal curvature and no CVA tenderness. There is point tenderness noted along the lumbar spine and lower thoracic spine as well. There is no evidence of ecchymosis, swelling, or skin changes. ABDOMEN: Soft, nontender, and nondistended. There are no masses or hepatosplenomegaly. There is a small reducible umbilical hernia noted that was nontender on palpation. EXTREMITIES: Without cyanosis, clubbing, or edema. NEUROLOGIC: He is awake, alert, and oriented. Motor is grossly normal and sensation intact. Tongue is midline. RECTAL: Exam deferred at this time. LABORATORY WORKUP: CBC with white count of 7000, hemoglobin 13..2, hematocrit of 39, and platelets of 230. D-dimer was elevated at 324, INR is 1.33. Chemistry panel with sodium of 139, potassium 4.4, chloride 100, CO2 of 31, BUN 14, and creatinine of 1.1. His lactic acid was 0.5, glucose of 96. LFTs within normal limits with exception of slightly elevated alkaline phosphatase of 123. ACCESSORY DIAGNOSTIC DATA: Chest x-ray: Evidence of COPD without acute pulmonary or cardiac process and also large chronic hiatal hernia with left basilar atelectasis unchanged from prior exam was noted. Chest/thorax CTA that was negative for PE. Lumbar spine CT that was evaluated and noted to have the following: There is a mild superior endplate compression fracture at T6 vertebral body, which was new compared to last exam in October of this year. There is also moderately to severe anterior and middle column superior endplate compression fracture at L1 level, which was new as well, appears to be acute with mild paravertebral infiltrative hematoma with retropulsion of the middle column resulting in moderate compromise of the central spinal canal. There is also degenerative spondylosis and facet joint osteoarthritis. These results were contacted to the ED provider from Radiology and also the ED provider has contacted Dr. Carrasco for a neurosurgical consultation that is pending at the time of admission. IMPRESSION: A 72-year-old gentleman with multiple medical issues including hypertension, gastroesophageal reflux disease, anxiety, chronic back pain, hypothyroidism as well as mild cognitive impairment, who presented to the emergency room with low back pain and posterior chest pain and found on imaging to have an L1 and T6 compression fracture without any known injury or fall in the past few days. ASSESSMENT AND PLAN: 1. L1 compression fracture. The patient will be admitted to the medical floor for close observation as well as pain control. He appears to be comfortable in the ED after he received a dose of Percocet and Zofran as well. He experienced no weakness or neurological compromise to his lower extremity. We will await neurosurgical consultation for further recommendation regarding his care. I will keep him at bedrest for the time being and we will provide pain medication and muscle relaxant as needed. 2. Hypertension. We will continue his lisinopril and Lasix as prescribed. 3. Hypothyroidism. We will continue his home Synthroid as well. 4. Gastroesophageal reflux disease. We will continue his PPI coverage twice daily. 5. Benign prostatic hypertrophy with history of urinary retention. We will continue his Flomax and he does have an indwelling Flynn catheter for the time being. 6. Developmental/cognitive impairment. The patient is alert, aware of his surrounding and seems oriented and knowledgeable of the plan of care, which he agreed. I will contact his brother for further recommendation and answering any questions that might develop. 7. Chronic sinus tachycardia. He seems to be stable and I believe it is a combination of his pain in addition to longstanding history of anxiety. We will continue his medication and we will continue his Xarelto for the time being unless I hear back from Neurosurgery to withhold any blood thinners at this time due to any possibility of surgery. 8. DVT prophylaxis: He is on Xarelto. I will place a call to Dr. Carrasco regarding continuation of Xarelto given the finding of this small hematoma at L1 level adjacent to his compression fracture that seems to be moderately compromising his spinal cord. We will use SCDs for DVT prophylaxis in the meantime and reassess him later. 9. Code status: The patient is a full code. TIME SPENT: Approximately 60 minutes were spent admitting this patient with greater than 50% on taking history and performing physical exam. I went on and discussed the findings and the plan with my attending Dr. Isbell, who agreed to plan of care, and we will await neurosurgical consult for the time being. MANUEL STOVER [id number]/CPS #: [id number] MADHAVI
[2018-01-26] MEDS ORDERED: Heparin VIAL(*) 5000 UNITS/ML VIAL (FIVE THOUSAND) SUBCUT SCH (14:00)
[2018-01-26] MEDS: Sucralfate TAB* 1 GM PO SCH ×2 (14:12→20:53)
[2018-01-26] MEDS: Furosemide TAB* 40 MG PO SCH (14:12)
[2018-01-26] MEDS: Tamsulosin CAP* 0.4 MG PO SCH ×2 (14:12→20:52)
[2018-01-26] MEDS: Lisinopril TAB* 10 MG PO SCH (14:12)
[2018-01-26] MEDS: THIORIDAZINE 50 MG PO SCH ×2 (14:12→20:53)
[2018-01-26] MEDS: rOPINIRole TAB* 1 MG PO SCH ×2 (14:12→20:52)
[2018-01-26] MEDS: busPIRone TAB* 10 MG PO SCH ×2 (14:13→20:55)
[2018-01-26] MEDS: Finasteride TAB* 5 MG PO SCH (14:13)
[2018-01-26] MEDS: Pentoxifylline CR TAB* 400 MG PO SCH ×2 (15:19→20:55)
[2018-01-26 16:01] LABS: Urine Appearance Cloudy; Urine Blood 1+ (Negative); Urine Color Yellow; Urine Ketones 1+ (Negative); Urine Protein Negative (Negative); Urine Red Blood Cell 3+(>10/hpf) (Absent); Urine Specific Gravity 1.025 (1.010-1.030); Urine Urobilinogen Negative (Negative); Urine White Blood Cell 2+(11-20/hpf) (Absent)
[2018-01-26] MEDS: oxyCODONE/Acetamin 5/325 MG* TAB PO PRN ×2 (16:50→21:02)
[2018-01-26] MEDS: Cyclobenzaprine TAB* 10 MG PO PRN (16:51)
[2018-01-26] MEDS: Docusate CAP* 100 MG PO SCH (20:52)
[2018-01-26] MEDS: traMADol TAB* 50 MG PO SCH (20:54)
[2018-01-26] MEDS: Omeprazole CAP* 20 MG PO SCH (20:55)
[2018-01-26] MEDS: Ferrous Sulfate TAB* 325 MG PO SCH (20:56)
[2018-01-26] MEDS: Ciprofloxacin TAB* 500 MG PO SCH (21:03)
[2018-01-27] MEDS: traMADol TAB* 50 MG PO SCH ×2 (02:43→08:36)
[2018-01-27] MEDS: oxyCODONE/Acetamin 5/325 MG* TAB PO PRN ×4 (04:13→20:40)
[2018-01-27] MEDS: Levothyroxine TAB* 125 MCG TAB PO SCH (05:44)
[2018-01-27 06:09] LABS: ABS Basophils 0.1 10^3/ul (0-0.2); ABS Eosinophils 0.3 10^3/ul (0-0.6); ABS Lymphocytes 1.9 10^3/ul (1.0-4.8); ABS Monocytes 0.7 10^3/ul (0-0.8); ABS Neutrophils 5.4 10^3/ul (1.5-7.7); ABS Nucleated RBC 0 10^3/ul; Hematocrit 41 % (42-52); Hemoglobin 13.8 g/dl (14.0-18.0); Lymphocyte % 22.3 % (25-47); Mean Corpuscular HGB Conc 34 g/dl (31-36); Mean Corpuscular Hemoglobin 31 pg (27-31); Mean Corpuscular Volume 92 fL (80-94); Mean Platelet Volume 5.8 um3 (7.4-10.4); Nucleated Red Blood Cells % 0; Platelet Count 233 10^3/ul (150-450); Red Blood Count 4.45 10^6/ul (4.00-5.40); Red Cell Distribution Width 14 % (10.5-15); White Blood Count 8.3 10^3/ul (3.5-10.8)
[2018-01-27 06:31] LABS: EGFR Non-African American 68.3 (>60)
[2018-01-27] MEDS: Cyclobenzaprine TAB* 10 MG PO PRN (08:32)
[2018-01-27] MEDS: Pentoxifylline CR TAB* 400 MG PO SCH ×3 (09:23→20:39)
[2018-01-27] MEDS: Ferrous Sulfate TAB* 325 MG PO SCH ×2 (09:23→20:34)
[2018-01-27] MEDS: Finasteride TAB* 5 MG PO SCH (09:23)
[2018-01-27] MEDS: Lisinopril TAB* 10 MG PO SCH (09:23)
[2018-01-27] MEDS: Docusate CAP* 100 MG PO SCH (09:23)
[2018-01-27] MEDS: rOPINIRole TAB* 1 MG PO SCH ×3 (09:23→20:32)
[2018-01-27] MEDS: THIORIDAZINE 50 MG PO SCH ×2 (09:23→20:40)
[2018-01-27] MEDS: busPIRone TAB* 10 MG PO SCH ×3 (09:23→20:39)
[2018-01-27] MEDS: Sucralfate TAB* 1 GM PO SCH ×3 (09:23→20:40)
[2018-01-27] MEDS: Omeprazole CAP* 20 MG PO SCH ×2 (09:23→20:33)
[2018-01-27] MEDS: Furosemide TAB* 40 MG PO SCH (09:23)
[2018-01-27] MEDS: Tamsulosin CAP* 0.4 MG PO SCH ×2 (09:23→20:34)
[2018-01-27] MEDS: Ciprofloxacin TAB* 500 MG PO SCH ×2 (09:52→20:39)
[2018-01-27] MEDS: Polyethylene Glycol 3350* 17 GM PACKET PO SCH (09:52)
--- NOTE | 2018-01-27 09:55 | PN ---
Subjective Date of Service: 01/27/18 Interval History: pt c/o LBP worse on left side, as well as chronic b/l hand numbness and pain as well as chronic hiatal hernia problems and inability to burp due to that. Objective Active Medications: Acetaminophen (Tylenol Tab*) 650 mg PO Q4H PRN PRN Reason: FEVER/PAIN Al Hydrox/Mg Hydrox/Simethicone (Maalox Plus*) 30 ml PO Q6H PRN PRN Reason: INDIGESTION Albuterol (Ventolin 2.5 Mg/3 Ml Neb.Martha*) 2.5 mg INH [id number] AWAKE PRN PRN Reason: sob/wheezing Buspirone HCl (Buspar Tab*) 20 mg PO TID [facility] Last Admin: 01/27/18 09:23 Dose: 20 mg Ciprofloxacin (Cipro Tab*) 500 mg PO BID [facility] Last Admin: 01/26/18 21:03 Dose: 500 mg Cyclobenzaprine HCl (Flexeril Tab*) 10 mg PO TID [facility] Ferrous Sulfate (Ferrous Sulfate Tab*) 325 mg PO BID [facility] Last Admin: 01/27/18 09:23 Dose: Not Given Finasteride (Proscar Tab*) 5 mg PO DAILY [facility] Last Admin: 01/27/18 09:23 Dose: 5 mg Furosemide (Lasix Tab*) 40 mg PO DAILY [facility] Last Admin: 01/27/18 09:23 Dose: 40 mg Iohexol (Omnipaque 350 (Contrast)-) 74 ml IV ONCE [facility] Stop: 01/28/18 09:14 Last Admin: 01/26/18 09:50 Dose: 74 ml Levothyroxine Sodium (Synthroid Tab*) 125 mcg PO 0600 [facility] Last Admin: 01/27/18 05:44 Dose: 125 mcg Lisinopril (Prinivil Tab*) 10 mg PO DAILY [facility] Last Admin: 01/27/18 09:23 Dose: 10 mg Lorazepam (Ativan Tab(*)) 1 mg PO Q6H PRN PRN Reason: ANXIETY Magnesium Hydroxide (Milk Of Magnesia Liq*) 30 ml PO Q4H PRN PRN Reason: CONSTIPATION Omeprazole (Prilosec Cap*) 40 mg PO BID [facility] Last Admin: 01/27/18 09:23 Dose: 40 mg Ondansetron HCl (Zofran Inj*) 4 mg IV Q4H PRN PRN Reason: NAUSEA/VOMITING Oxycodone/Acetaminophen (Percocet 5/325 Tab*) 1 tab PO Q4H PRN PRN Reason: Pain Last Admin: 01/27/18 08:29 Dose: 1 tab Pentoxifylline (Trental Cr Tab*) 400 mg PO TID [facility] Last Admin: 01/27/18 09:23 Dose: 400 mg Polyethylene Glycol/Electrolytes (Miralax*) 17 gm PO DAILY PRN PRN Reason: CONSTIPATION Polyethylene Glycol/Electrolytes (Miralax*) 17 gm PO DAILY [facility] Ropinirole HCl (Requip Tab*) 3 mg PO TID [facility] Last Admin: 01/27/18 09:23 Dose: 3 mg Senna/Docusate Sodium (Sennokot-S(Nf)) tab PO BEDTIME [facility] Sucralfate (Carafate*) 1 gm PO TID [facility] Last Admin: 01/27/18 09:23 Dose: 1 gm Tamsulosin HCl (Flomax Cap*) 0.4 mg PO BID [facility] Last Admin: 01/27/18 09:23 Dose: 0.4 mg Thioridazine HCl (Mellaril*) 50 mg PO BID [facility] Last Admin: 01/27/18 09:23 Dose: 50 mg Vital Signs - 8 hr 01/27/18 01/27/18 01/27/18 02:43 02:49 04:13 Temperature 98.0 F Pulse Rate 104 Respiratory 16 16 16 Rate Blood Pressure 129/78 (mmHg) O2 Sat by Pulse 96 Oximetry 01/27/18 01/27/18 01/27/18 05:00 06:15 07:59 Temperature 98.1 F Pulse Rate 102 Respiratory 16 16 14 Rate Blood Pressure 135/102 (mmHg) O2 Sat by Pulse 98 Oximetry 01/27/18 01/27/18 01/27/18 08:00 08:20 08:29 Temperature Pulse Rate Respiratory 18 18 Rate Blood Pressure 136/77 (mmHg) O2 Sat by Pulse Oximetry 01/27/18 08:32 Temperature Pulse Rate Respiratory 18 Rate Blood Pressure (mmHg) O2 Sat by Pulse Oximetry Oxygen Devices in Use Now: None Appearance: 72 yo m in nAD, aAOx3 Eyes: No Scleral Icterus, PERRLA Ears/Nose/Mouth/Throat: NL Teeth, Lips, Gums, Mucous Membranes Moist Neck: NL Appearance and Movements; NL JVP, Trachea Midline Respiratory: Symmetrical Chest Expansion and Respiratory Effort, Clear to Auscultation Cardiovascular: NL Sounds; No Murmurs; No JVD Abdominal: NL Sounds; No Tenderness; No Distention, - - tender in left lumbar musculature on palpation Lymphatic: No Cervical Adenopathy Extremities: No Edema, No Clubbing, Cyanosis Skin: No Rash or Ulcers, No Nodules or Sclerosis Neurological: Alert and Oriented x 3, - - unable to rase left leg off bed due to pain. R leg -able to hold against gravity x 5 sec. Result Diagrams: 01/27/18 05:53 01/27/18 05:53 Assess/Plan/Problems-Billing Assessment: Mr Gasca is a 72 yo M who has a h/o urinary retention x 2 months, HTN, cognitive impairment with psychiatric disorder, left peronela vein nonocclusive DVT(placed on Xarelto by Dr. Ybarra), hypothyroidism and anxiety who presented to the ER with c/o back pain and CP. Lives at [place] - Patient Problems (1) Compression fracture Comment: New T6, L1 compresssion fx with mod compression of central spinal canal D/w Dr. Carrasco who recommended TLSO brace(ordered) Pt feels that he waoul do OK with Flexeril and Percocet TID cont bedrest till brace is in place (2) Bilateral arm pain Comment: and numbness-likely related to carpal tunnel syndrome, cont to monitor (3) HTN (hypertension) Comment: BP is under good control. Continue current does of lisinopril and furosemide. (4) Hypothyroid Comment: TSH was in good range 10/21/17. Continue home dose of synthroid. (5) Psychiatric disorder Comment: Continue thioridazine, buspar and ativan. (6) Urinary retention Comment: The patient had an episode of urinary retention 03/2016. Now has a Mccullough since 12/24 For now continue mccullough catheter. (7) UTI (urinary tract infection) Comment: Urine cx on 01/21/18 positive for E. Faecalis. cont Cipro from home (8) DVT prophylaxis Comment: Xarelto held due to small hematoma, next to L1 fx cont SCD Status and Disposition: inpatient
[2018-01-27] MEDS: LORazepam TAB(*) 1 MG PO PRN ×2 (11:13→17:28)
[2018-01-27] MEDS: Cyclobenzaprine TAB* 10 MG PO SCH ×2 (14:02→20:34)
--- NOTE | 2018-01-27 19:02 | PN ---
Progress Note - Progress Note Date of Service: 01/27/18 SOAP: Subjective: []Asked to see patient with 7-10 day history of increasing back pain.No history of trauma. Patient has been having difficulty with urinary retention predating the onset of his back pain. He presented to the ER with an indwelling Flynn which has been there for several weeks. He complains of back pain. He has difficulty ambulating secondary to pain. Objective: []Flynn in palce Motor intact Sensory exam shows no sensory level Assessment: []CT shows L1 compression fracture Plan: [] He has a stable compression fracture. He will need a TLSO for support, Full Consult to follow
[2018-01-27] MEDS: Senna TAB PO SCH (20:35)
[2018-01-28] MEDS: oxyCODONE/Acetamin 5/325 MG* TAB PO PRN ×4 (03:42→18:16)
[2018-01-28] MEDS: LORazepam TAB(*) 1 MG PO PRN ×3 (03:46→18:15)
[2018-01-28] MEDS: Levothyroxine TAB* 125 MCG TAB PO SCH (06:16)
--- NOTE | 2018-01-28 08:28 | PN ---
Subjective Date of Service: 01/28/18 Interval History: Pt c/o worsening back pain with repositioning. No other complaints Objective Active Medications: Acetaminophen (Tylenol Tab*) 650 mg PO Q4H PRN PRN Reason: FEVER/PAIN Al Hydrox/Mg Hydrox/Simethicone (Maalox Plus*) 30 ml PO Q6H PRN PRN Reason: INDIGESTION Albuterol (Ventolin 2.5 Mg/3 Ml Neb.Martha*) 2.5 mg INH [id number] AWAKE PRN PRN Reason: sob/wheezing Buspirone HCl (Buspar Tab*) 20 mg PO TID [facility] Last Admin: 01/27/18 20:39 Dose: 20 mg Ciprofloxacin (Cipro Tab*) 500 mg PO BID [facility] Last Admin: 01/27/18 20:39 Dose: 500 mg Cyclobenzaprine HCl (Flexeril Tab*) 10 mg PO TID [facility] Last Admin: 01/27/18 20:34 Dose: 10 mg Ferrous Sulfate (Ferrous Sulfate Tab*) 325 mg PO BID [facility] Last Admin: 01/27/18 20:34 Dose: 325 mg Finasteride (Proscar Tab*) 5 mg PO DAILY [facility] Last Admin: 01/27/18 09:23 Dose: 5 mg Furosemide (Lasix Tab*) 40 mg PO DAILY [facility] Last Admin: 01/27/18 09:23 Dose: 40 mg Iohexol (Omnipaque 350 (Contrast)-) 74 ml IV ONCE [facility] Stop: 01/28/18 09:14 Last Admin: 01/26/18 09:50 Dose: 74 ml Levothyroxine Sodium (Synthroid Tab*) 125 mcg PO 0600 [facility] Last Admin: 01/28/18 06:16 Dose: 125 mcg Lisinopril (Prinivil Tab*) 10 mg PO DAILY [facility] Last Admin: 01/27/18 09:23 Dose: 10 mg Lorazepam (Ativan Tab(*)) 1 mg PO Q6H PRN PRN Reason: ANXIETY Last Admin: 01/28/18 03:46 Dose: 1 mg Magnesium Hydroxide (Milk Of Magnesia Liq*) 30 ml PO Q4H PRN PRN Reason: CONSTIPATION Omeprazole (Prilosec Cap*) 40 mg PO BID [facility] Last Admin: 01/27/18 20:33 Dose: 40 mg Ondansetron HCl (Zofran Inj*) 4 mg IV Q4H PRN PRN Reason: NAUSEA/VOMITING Oxycodone/Acetaminophen (Percocet 5/325 Tab*) 1 tab PO Q4H PRN PRN Reason: Pain Last Admin: 01/28/18 03:42 Dose: 1 tab Pentoxifylline (Trental Cr Tab*) 400 mg PO TID [facility] Last Admin: 01/27/18 20:39 Dose: 400 mg Polyethylene Glycol/Electrolytes (Miralax*) 17 gm PO DAILY PRN PRN Reason: CONSTIPATION Polyethylene Glycol/Electrolytes (Miralax*) 17 gm PO DAILY [facility] Last Admin: 01/27/18 09:52 Dose: Not Given Ropinirole HCl (Requip Tab*) 3 mg PO TID [facility] Last Admin: 01/27/18 20:32 Dose: 3 mg Senna (Senokot Tab*) 2 tab PO BEDTIME [facility] Last Admin: 01/27/18 20:35 Dose: 2 tab Sucralfate (Carafate*) 1 gm PO TID [facility] Last Admin: 01/27/18 20:40 Dose: 1 gm Tamsulosin HCl (Flomax Cap*) 0.4 mg PO BID [facility] Last Admin: 01/27/18 20:34 Dose: 0.4 mg Thioridazine HCl (Mellaril*) 50 mg PO BID [facility] Last Admin: 01/27/18 20:40 Dose: 50 mg Vital Signs - 8 hr 01/28/18 01/28/18 01/28/18 03:20 03:42 03:46 Temperature 98.8 F Pulse Rate 109 Respiratory 16 20 20 Rate Blood Pressure 123/73 (mmHg) O2 Sat by Pulse 94 Oximetry 01/28/18 06:18 Temperature Pulse Rate Respiratory 16 Rate Blood Pressure (mmHg) O2 Sat by Pulse Oximetry Oxygen Devices in Use Now: None Appearance: 72 yo m in nAD, aAOx3 Eyes: No Scleral Icterus, PERRLA Ears/Nose/Mouth/Throat: NL Teeth, Lips, Gums, Mucous Membranes Moist Neck: NL Appearance and Movements; NL JVP, Trachea Midline Respiratory: Symmetrical Chest Expansion and Respiratory Effort, Clear to Auscultation Cardiovascular: NL Sounds; No Murmurs; No JVD, RRR Abdominal: NL Sounds; No Tenderness; No Distention, No Hepatosplenomegaly Lymphatic: No Cervical Adenopathy Extremities: No Edema, No Clubbing, Cyanosis Skin: No Rash or Ulcers, No Nodules or Sclerosis Neurological: Alert and Oriented x 3, - - mild R flattening of nasolabial fold- chronic. Refuses to raise legs off bed due to back pain, no motor deficit noted Result Diagrams: 01/27/18 05:53 01/27/18 05:53 Microbiology and Other Data: Microbiology 01/26/18 15:45 Urine Culture - Preliminary Urine Enterococcus Faecalis Assess/Plan/Problems-Billing Assessment: Mr Gasca is a 72 yo M who has a h/o urinary retention x 2 months, HTN, cognitive impairment with psychiatric disorder, left peronela vein nonocclusive DVT(placed on Xarelto by Dr. Ybarra), hypothyroidism and anxiety who presented to the ER with c/o back pain and CP. Lives at [place] - Patient Problems (1) Compression fracture Comment: New T6, L1 compresssion fx with mod compression of central spinal canal D/w Dr. Carrasco who recommended TLSO brace(ordered) cont Flexeril and Percocet TID cont bedrest till brace is in place (2) Bilateral arm pain Comment: and numbness-likely related to carpal tunnel syndrome, cont to monitor (3) HTN (hypertension) Comment: BP is under good control. Continue current does of lisinopril and furosemide. (4) Hypothyroid Comment: TSH was in good range 10/21/17. Continue home dose of synthroid. (5) Psychiatric disorder Comment: Continue thioridazine, buspar and ativan. (6) Urinary retention Comment: The patient had an episode of urinary retention 03/2016. Now has a Mccullough since 12/24 For now continue mccullough catheter. (7) UTI (urinary tract infection) Comment: Urine cx on 01/21/18 positive for E. Faecalis. cont Cipro from home (8) DVT prophylaxis Comment: Xarelto held due to small hematoma, next to L1 fx cont SCD (9) Facial asymmetry Comment: flattening of R nasolabial fold-chronic Status and Disposition: inpatient
[2018-01-28] MEDS: Ciprofloxacin TAB* 500 MG PO SCH ×2 (09:31→21:08)
[2018-01-28] MEDS: Sucralfate TAB* 1 GM PO SCH ×3 (09:31→21:11)
[2018-01-28] MEDS: Cyclobenzaprine TAB* 10 MG PO SCH ×3 (09:32→21:12)
[2018-01-28] MEDS: Omeprazole CAP* 20 MG PO SCH ×2 (09:33→21:09)
[2018-01-28] MEDS: rOPINIRole TAB* 1 MG PO SCH ×3 (09:33→21:07)
[2018-01-28] MEDS: Tamsulosin CAP* 0.4 MG PO SCH ×2 (09:34→21:11)
[2018-01-28] MEDS: Pentoxifylline CR TAB* 400 MG PO SCH ×3 (09:34→21:11)
[2018-01-28] MEDS: Finasteride TAB* 5 MG PO SCH (09:35)
[2018-01-28] MEDS: Lisinopril TAB* 10 MG PO SCH (09:35)
[2018-01-28] MEDS: busPIRone TAB* 10 MG PO SCH ×3 (09:35→21:08)
[2018-01-28] MEDS: Furosemide TAB* 40 MG PO SCH (09:36)
[2018-01-28] MEDS: THIORIDAZINE 50 MG PO SCH ×2 (09:36→21:11)
[2018-01-28] MEDS: Ferrous Sulfate TAB* 325 MG PO SCH ×2 (09:38→21:11)
[2018-01-28] MEDS: Polyethylene Glycol 3350* 17 GM PACKET PO SCH (09:38)
[2018-01-28] MEDS ORDERED: Morphine VIAL* 4 MG/ML VIAL (1 ml vial) IV PRN (17:07)
[2018-01-28] MEDS: Senna TAB PO SCH (21:10)
[2018-01-29] MEDS: Levothyroxine TAB* 125 MCG TAB PO SCH (06:36)
--- NOTE | 2018-01-29 09:02 | PN ---
Subjective Date of Service: 01/29/18 Interval History: Pt feels much better after the TLSO brace is in place. ambulated with PT wit one person assist today Objective Active Medications: Acetaminophen (Tylenol Tab*) 650 mg PO Q4H PRN PRN Reason: FEVER/PAIN Al Hydrox/Mg Hydrox/Simethicone (Maalox Plus*) 30 ml PO Q6H PRN PRN Reason: INDIGESTION Albuterol (Ventolin 2.5 Mg/3 Ml Neb.Martha*) 2.5 mg INH [id number] AWAKE PRN PRN Reason: sob/wheezing Buspirone HCl (Buspar Tab*) 20 mg PO TID [facility] Last Admin: 01/28/18 21:08 Dose: 20 mg Ciprofloxacin (Cipro Tab*) 500 mg PO BID [facility] Last Admin: 01/28/18 21:08 Dose: 500 mg Cyclobenzaprine HCl (Flexeril Tab*) 10 mg PO TID [facility] Last Admin: 01/28/18 21:12 Dose: 10 mg Ferrous Sulfate (Ferrous Sulfate Tab*) 325 mg PO BID [facility] Last Admin: 01/28/18 21:11 Dose: 325 mg Finasteride (Proscar Tab*) 5 mg PO DAILY [facility] Last Admin: 01/28/18 09:35 Dose: 5 mg Furosemide (Lasix Tab*) 40 mg PO DAILY [facility] Last Admin: 01/28/18 09:36 Dose: 40 mg Levothyroxine Sodium (Synthroid Tab*) 125 mcg PO 0600 [facility] Last Admin: 01/29/18 06:36 Dose: 125 mcg Lisinopril (Prinivil Tab*) 10 mg PO DAILY [facility] Last Admin: 01/28/18 09:35 Dose: 10 mg Lorazepam (Ativan Tab(*)) 1 mg PO Q6H PRN PRN Reason: ANXIETY Last Admin: 01/28/18 18:15 Dose: 1 mg Magnesium Hydroxide (Milk Of Magnesia Liq*) 30 ml PO Q4H PRN PRN Reason: CONSTIPATION Morphine Sulfate (Morphine Vial*) 2 mg IV Q4H PRN PRN Reason: PAIN Omeprazole (Prilosec Cap*) 40 mg PO BID [facility] Last Admin: 01/28/18 21:09 Dose: 40 mg Ondansetron HCl (Zofran Inj*) 4 mg IV Q4H PRN PRN Reason: NAUSEA/VOMITING Oxycodone/Acetaminophen (Percocet 5/325 Tab*) 1 tab PO Q4H PRN PRN Reason: Pain Last Admin: 01/28/18 18:16 Dose: 1 tab Pentoxifylline (Trental Cr Tab*) 400 mg PO TID [facility] Last Admin: 01/28/18 21:11 Dose: 400 mg Polyethylene Glycol/Electrolytes (Miralax*) 17 gm PO DAILY PRN PRN Reason: CONSTIPATION Polyethylene Glycol/Electrolytes (Miralax*) 17 gm PO DAILY [facility] Last Admin: 01/28/18 09:38 Dose: Not Given Ropinirole HCl (Requip Tab*) 3 mg PO TID [facility] Last Admin: 01/28/18 21:07 Dose: 3 mg Senna (Senokot Tab*) 2 tab PO BEDTIME [facility] Last Admin: 01/28/18 21:10 Dose: 2 tab Sucralfate (Carafate*) 1 gm PO TID [facility] Last Admin: 01/28/18 21:11 Dose: 1 gm Tamsulosin HCl (Flomax Cap*) 0.4 mg PO BID [facility] Last Admin: 01/28/18 21:11 Dose: 0.4 mg Thioridazine HCl (Mellaril*) 50 mg PO BID [facility] Last Admin: 01/28/18 21:11 Dose: 50 mg Vital Signs - 8 hr 01/29/18 01/29/18 01/29/18 04:32 07:14 07:30 Temperature 98.5 F 98.3 F Pulse Rate 108 113 Respiratory 16 18 20 Rate Blood Pressure 134/82 119/74 (mmHg) O2 Sat by Pulse 96 96 Oximetry Oxygen Devices in Use Now: None Appearance: 72 yo M in nAD, aAOx3 Eyes: No Scleral Icterus, PERRLA Ears/Nose/Mouth/Throat: NL Teeth, Lips, Gums, Mucous Membranes Moist Neck: NL Appearance and Movements; NL JVP, Trachea Midline Respiratory: Symmetrical Chest Expansion and Respiratory Effort, Clear to Auscultation Cardiovascular: NL Sounds; No Murmurs; No JVD, RRR Abdominal: NL Sounds; No Tenderness; No Distention, - - back not examined today- TLSO brace is in place Lymphatic: No Cervical Adenopathy Extremities: No Edema, No Clubbing, Cyanosis Skin: No Rash or Ulcers, No Nodules or Sclerosis Neurological: Alert and Oriented x 3, NL Muscle Strength and Tone Result Diagrams: 01/27/18 05:53 01/27/18 05:53 Microbiology and Other Data: Microbiology 01/26/18 15:45 Urine Culture - Preliminary Urine Enterococcus Faecalis Assess/Plan/Problems-Billing Assessment: Mr Gasca is a 72 yo M who has a h/o urinary retention x 2 months, HTN, cognitive impairment with psychiatric disorder, left peroneal vein nonocclusive DVT(placed on Xarelto by Dr. Ybarra), hypothyroidism and anxiety who presented to the ER with c/o back pain and CP. Lives at [facility] - Patient Problems (1) Compression fracture Comment: New T6, L1 compresssion fx with mod compression of central spinal canal D/w Dr. Carrasco who recommended TLSO brace- in place cont Flexeril and Percocet TID PT/OT, possible d/c bck to [facility] tomorrow afternoon (2) Bilateral arm pain Comment: and numbness-likely related to carpal tunnel syndrome, cont to monitor (3) HTN (hypertension) Comment: BP is under good control. Continue current dose of lisinopril and furosemide. (4) Hypothyroid Comment: TSH was in good range 10/21/17. Continue home dose of synthroid. (5) Psychiatric disorder Comment: Continue thioridazine, buspar and ativan. (6) Urinary retention Comment: The patient had an episode of urinary retention 03/2016. Now has a Mccullough since 12/24 For now continue mccullough catheter. (7) UTI (urinary tract infection) Comment: Urine cx on 01/21/18 positive for E. Faecalis. cont Cipro from home (8) Facial asymmetry Comment: flattening of R nasolabial fold and occasional mild dysarthia-chronic (9) Tachycardia Comment: chronic, pt os DR. Raya. was tried on Cardizem, but did not tolerate it. Recent holter in 2018 showed HR with a mean of 120 Echo with EF 70%. Cardiology saw pt in 11/2017 and recommended no meds unless pt is symptomatic and to f/u with cardiology as scheduled (10) DVT prophylaxis Comment: Xarelto held due to small hematoma, next to L1 fx at admission, but will be restarted due to pt's immobility. Hb had been stable cont SCD Status and Disposition: inpatient
[2018-01-29] MEDS: Polyethylene Glycol 3350* 17 GM PACKET PO SCH ×2 (09:09→20:58)
[2018-01-29] MEDS: Ciprofloxacin TAB* 500 MG PO SCH ×2 (09:10→20:56)
[2018-01-29] MEDS: Cyclobenzaprine TAB* 10 MG PO SCH ×3 (09:10→20:56)
[2018-01-29] MEDS: THIORIDAZINE 50 MG PO SCH ×2 (09:10→20:57)
[2018-01-29] MEDS: oxyCODONE/Acetamin 5/325 MG* TAB PO PRN ×3 (09:10→23:46)
[2018-01-29] MEDS: rOPINIRole TAB* 1 MG PO SCH ×3 (09:10→20:57)
[2018-01-29] MEDS: Sucralfate TAB* 1 GM PO SCH ×3 (09:10→20:58)
[2018-01-29] MEDS: Omeprazole CAP* 20 MG PO SCH ×2 (09:11→20:57)
[2018-01-29] MEDS: Ferrous Sulfate TAB* 325 MG PO SCH (09:11)
[2018-01-29] MEDS: busPIRone TAB* 10 MG PO SCH ×3 (09:11→20:57)
[2018-01-29] MEDS: Pentoxifylline CR TAB* 400 MG PO SCH ×3 (09:11→20:57)
[2018-01-29] MEDS: Finasteride TAB* 5 MG PO SCH (09:11)
[2018-01-29] MEDS: Tamsulosin CAP* 0.4 MG PO SCH ×2 (09:11→20:56)
[2018-01-29] MEDS: Furosemide TAB* 40 MG PO SCH (09:11)
[2018-01-29] MEDS: Lisinopril TAB* 10 MG PO SCH (09:12)
[2018-01-29] MEDS: LORazepam TAB(*) 1 MG PO PRN ×3 (09:12→23:47)
[2018-01-29] MEDS ORDERED: HYDROmorphone INJ* 0.5 MG/0.5 ML SYRINGE IV SLOW PU PRN (09:24)
[2018-01-29] MEDS: Rivaroxaban TAB(*) 15 MG PO SCH (17:09)
[2018-01-29] MEDS: Senna TAB PO SCH (20:57)
[2018-01-30] MEDS: oxyCODONE/Acetamin 5/325 MG* TAB PO PRN ×4 (04:19→20:30)
[2018-01-30] MEDS: Levothyroxine TAB* 125 MCG TAB PO SCH (05:39)
[2018-01-30 06:49] LABS: Hematocrit 43 % (42-52); Hemoglobin 14.2 g/dl (14.0-18.0); Mean Corpuscular HGB Conc 34 g/dl (31-36); Mean Corpuscular Hemoglobin 31 pg (27-31); Mean Corpuscular Volume 92 fL (80-94); Mean Platelet Volume 6.1 um3 (7.4-10.4); Platelet Count 262 10^3/ul (150-450); Red Cell Distribution Width 14 % (10.5-15); White Blood Count 8.1 10^3/ul (3.5-10.8)
[2018-01-30 07:00] LABS: EGFR Non-African American 80.3 (>60)
[2018-01-30] MEDS: Lisinopril TAB* 10 MG PO SCH (07:56)
[2018-01-30] MEDS: Finasteride TAB* 5 MG PO SCH (07:56)
[2018-01-30] MEDS: LORazepam TAB(*) 1 MG PO PRN ×3 (07:56→20:30)
[2018-01-30] MEDS: Tamsulosin CAP* 0.4 MG PO SCH ×2 (07:56→20:29)
[2018-01-30] MEDS: Polyethylene Glycol 3350* 17 GM PACKET PO SCH ×3 (07:56→20:25)
[2018-01-30] MEDS: Sucralfate TAB* 1 GM PO SCH ×3 (07:56→20:30)
[2018-01-30] MEDS: Ciprofloxacin TAB* 500 MG PO SCH (07:56)
[2018-01-30] MEDS: rOPINIRole TAB* 1 MG PO SCH ×3 (07:57→20:28)
[2018-01-30] MEDS: Pentoxifylline CR TAB* 400 MG PO SCH ×3 (07:57→20:28)
[2018-01-30] MEDS: THIORIDAZINE 50 MG PO SCH ×2 (07:57→20:29)
[2018-01-30] MEDS: Furosemide TAB* 40 MG PO SCH (07:57)
[2018-01-30] MEDS: Omeprazole CAP* 20 MG PO SCH ×2 (07:57→20:28)
[2018-01-30] MEDS: busPIRone TAB* 10 MG PO SCH ×3 (07:57→20:27)
[2018-01-30] MEDS: Cyclobenzaprine TAB* 10 MG PO SCH ×3 (07:57→20:29)
--- NOTE | 2018-01-30 13:35 | PN ---
Subjective Date of Service: 01/30/18 Interval History: Pt states he is still having pain in his back which worsens when he moves. He asks for more pain medication (it has already been increased from his baseline) . He states otherwise he feels well. Objective Active Medications: Acetaminophen (Tylenol Tab*) 650 mg PO Q4H PRN PRN Reason: FEVER/PAIN Last Admin: 01/29/18 18:05 Dose: 650 mg Al Hydrox/Mg Hydrox/Simethicone (Maalox Plus*) 30 ml PO Q6H PRN PRN Reason: INDIGESTION Albuterol (Ventolin 2.5 Mg/3 Ml Neb.Martha*) 2.5 mg INH [id number] AWAKE PRN PRN Reason: sob/wheezing Buspirone HCl (Buspar Tab*) 20 mg PO TID [facility] Last Admin: 01/30/18 07:57 Dose: 20 mg Ciprofloxacin (Cipro Tab*) 500 mg PO BID [facility] Last Admin: 01/30/18 07:56 Dose: 500 mg Cyclobenzaprine HCl (Flexeril Tab*) 10 mg PO TID [facility] Last Admin: 01/30/18 07:57 Dose: 10 mg Finasteride (Proscar Tab*) 5 mg PO DAILY [facility] Last Admin: 01/30/18 07:56 Dose: 5 mg Furosemide (Lasix Tab*) 40 mg PO DAILY [facility] Last Admin: 01/30/18 07:57 Dose: 40 mg Levothyroxine Sodium (Synthroid Tab*) 125 mcg PO 0600 [facility] Last Admin: 01/30/18 05:39 Dose: 125 mcg Lisinopril (Prinivil Tab*) 10 mg PO DAILY [facility] Last Admin: 01/30/18 07:56 Dose: 10 mg Lorazepam (Ativan Tab(*)) 1 mg PO Q6H PRN PRN Reason: ANXIETY Last Admin: 01/30/18 07:56 Dose: 1 mg Magnesium Hydroxide (Milk Of Magnesia Liq*) 30 ml PO Q4H PRN PRN Reason: CONSTIPATION Omeprazole (Prilosec Cap*) 40 mg PO BID [facility] Last Admin: 01/30/18 07:57 Dose: 40 mg Ondansetron HCl (Zofran Inj*) 4 mg IV Q4H PRN PRN Reason: NAUSEA/VOMITING Last Admin: 01/29/18 12:03 Dose: 4 mg Oxycodone/Acetaminophen (Percocet 5/325 Tab*) 1 tab PO Q4H PRN PRN Reason: Pain Last Admin: 01/30/18 10:44 Dose: 1 tab Pentoxifylline (Trental Cr Tab*) 400 mg PO TID [facility] Last Admin: 01/30/18 07:57 Dose: 400 mg Polyethylene Glycol/Electrolytes (Miralax*) 17 gm PO DAILY PRN PRN Reason: CONSTIPATION Polyethylene Glycol/Electrolytes (Miralax*) 17 gm PO DAILY [facility] Last Admin: 01/30/18 07:58 Dose: Not Given Polyethylene Glycol/Electrolytes (Miralax*) 17 gm PO 0800,2100 [facility] Last Admin: 01/30/18 07:56 Dose: 17 gm Rivaroxaban (Xarelto(*)) 15 mg PO 1700 [facility] Last Admin: 01/29/18 17:09 Dose: 15 mg Ropinirole HCl (Requip Tab*) 3 mg PO TID [facility] Last Admin: 01/30/18 07:57 Dose: 3 mg Senna (Senokot Tab*) 2 tab PO BEDTIME [facility] Last Admin: 01/29/18 20:57 Dose: 2 tab Sucralfate (Carafate*) 1 gm PO TID [facility] Last Admin: 01/30/18 07:56 Dose: 1 gm Tamsulosin HCl (Flomax Cap*) 0.4 mg PO BID [facility] Last Admin: 01/30/18 07:56 Dose: 0.4 mg Thioridazine HCl (Mellaril*) 50 mg PO BID [facility] Last Admin: 01/30/18 07:57 Dose: 50 mg Vital Signs - 8 hr 01/30/18 01/30/18 01/30/18 07:48 07:56 07:57 Temperature 98.7 F Pulse Rate 102 Respiratory 17 20 18 Rate Blood Pressure 126/80 (mmHg) O2 Sat by Pulse 95 Oximetry 01/30/18 01/30/18 01/30/18 08:00 10:35 10:44 Temperature Pulse Rate Respiratory 18 18 18 Rate Blood Pressure (mmHg) O2 Sat by Pulse Oximetry 01/30/18 01/30/18 11:27 12:46 Temperature 97.9 F Pulse Rate 115 Respiratory 16 18 Rate Blood Pressure 113/73 (mmHg) O2 Sat by Pulse 95 Oximetry Oxygen Devices in Use Now: None Appearance: Elderly male lying in bed, NAD Eyes: No Scleral Icterus Ears/Nose/Mouth/Throat: Mucous Membranes Moist Respiratory: Symmetrical Chest Expansion and Respiratory Effort, Clear to Auscultation Cardiovascular: NL Sounds; No Murmurs; No JVD, RRR, No Edema Abdominal: NL Sounds; No Tenderness; No Distention Extremities: No Clubbing, Cyanosis Skin: No Nodules or Sclerosis Neurological: Alert and Oriented x 3 Result Diagrams: 01/30/18 06:08 01/30/18 06:08 Microbiology and Other Data: Microbiology 01/26/18 15:45 Urine Culture - Preliminary Urine Enterococcus Faecalis Assess/Plan/Problems-Billing Mr Gasca is a 72 yo M who has a h/o urinary retention x 2 months, HTN, cognitive impairment with psychiatric disorder, left peroneal vein nonocclusive DVT (placed on Xarelto by Dr. Ybarra), hypothyroidism and anxiety who presented to the ER with c/o back pain and CP. - Patient Problems (1) Compression fracture Current Visit: Yes Status: Acute Code(s): [id number] - SNOMED Code(s): 888598520 Comment: Pt with mild T6 compression fx and moderately severe L1 compresssion fracture with small adjacent hematoma. The patient c/o continued pain in his back. He has a h/o frequently asking for more pain medication. Will not increase further. Continue flexeril 10mg TID and percocet 5/325 q4hr prn pain. Utilize ice/heat and TLSO brace for comfort. I question if he will be able to manage at [place] alone. He is not interested in STR. (2) Urinary retention Current Visit: Yes Status: Acute Code(s): R33.9 - RETENTION OF URINE, UNSPECIFIED SNOMED Code(s): 730073991 Comment: Continue mccullough catheter drainage. Follow up with urology as outpatient. (3) Abnormal urinalysis Current Visit: Yes Status: Acute Code(s): R82.90 - UNSPECIFIED ABNORMAL FINDINGS IN URINE SNOMED Code(s): 895208419 Comment: Pt with abnormal UA and urine grew enterococcus however he is afebrile, without elevated WBC count and has a mccullough catheter in place. I will stop cipro (enterococcus is resistant to levaquin) and just monitor. I do not believe he has a UTI. (4) HTN (hypertension) Current Visit: Yes Status: Acute Code(s): I10 - ESSENTIAL (PRIMARY) HYPERTENSION SNOMED Code(s): 06801039 Comment: BP is under good control. Continue current dose of lisinopril and furosemide. (5) Chronic GERD Current Visit: Yes Status: Acute Code(s): K21.9 - GASTRO-ESOPHAGEAL REFLUX DISEASE WITHOUT ESOPHAGITIS SNOMED Code(s): 107697913 Comment: Continue omeprazole. (6) DVT (deep venous thrombosis) Current Visit: Yes Status: Acute Code(s): I82.409 - ACUTE EMBOLISM AND THOMBOS UNSP DEEP VN UNSP LOWER EXTREMITY SNOMED Code(s): 202770809 Comment: Dx with DVT in 09/2017. Has been on xarelto since. (7) Hypothyroid Current Visit: Yes Status: Acute Code(s): E03.9 - HYPOTHYROIDISM, UNSPECIFIED SNOMED Code(s): 57528147 Comment: TSH was in good range 10/21/17. Continue home dose of synthroid. (8) Full code status Current Visit: Yes Status: Acute Code(s): Z78.9 - OTHER SPECIFIED HEALTH STATUS SNOMED Code(s): 986403301 Status and Disposition: back to [place] vs STR
[2018-01-30] MEDS: Rivaroxaban TAB(*) 15 MG PO SCH (16:17)
[2018-01-30] MEDS: Senna TAB PO SCH (20:29)
[2018-01-31] MEDS: Levothyroxine TAB* 125 MCG TAB PO SCH (05:42)
[2018-01-31] MEDS: Polyethylene Glycol 3350* 17 GM PACKET PO SCH ×2 (07:16→21:30)
[2018-01-31] MEDS: Magnesium Hydroxide LIQ* 30 ML UDC PO PRN ×2 (07:16→11:37)
[2018-01-31] MEDS: oxyCODONE/Acetamin 5/325 MG* TAB PO PRN ×3 (07:26→16:41)
[2018-01-31] MEDS: LORazepam TAB(*) 1 MG PO PRN (07:26)
[2018-01-31] MEDS: Sucralfate TAB* 1 GM PO SCH ×3 (08:44→21:30)
[2018-01-31] MEDS: Finasteride TAB* 5 MG PO SCH (08:44)
[2018-01-31] MEDS: Lisinopril TAB* 10 MG PO SCH (08:44)
[2018-01-31] MEDS: Pentoxifylline CR TAB* 400 MG PO SCH ×3 (08:45→21:29)
[2018-01-31] MEDS: Tamsulosin CAP* 0.4 MG PO SCH ×2 (08:45→21:30)
[2018-01-31] MEDS: THIORIDAZINE 50 MG PO SCH ×2 (08:45→21:30)
[2018-01-31] MEDS: Furosemide TAB* 40 MG PO SCH (08:45)
[2018-01-31] MEDS: Cyclobenzaprine TAB* 10 MG PO SCH ×3 (08:45→21:29)
[2018-01-31] MEDS: rOPINIRole TAB* 1 MG PO SCH ×3 (08:45→21:29)
[2018-01-31] MEDS: Omeprazole CAP* 20 MG PO SCH ×2 (08:45→21:28)
[2018-01-31] MEDS: busPIRone TAB* 10 MG PO SCH ×3 (08:45→21:29)
[2018-01-31] MEDS: Metoprolol Tartrate TAB* 25 MG PO SCH ×2 (11:36→21:30)
[2018-01-31] MEDS: Rivaroxaban TAB(*) 15 MG PO SCH (17:49)
[2018-01-31] MEDS: Senna TAB PO SCH (21:30)
[2018-02-01] MEDS: oxyCODONE/Acetamin 5/325 MG* TAB PO PRN ×4 (00:23→17:35)
[2018-02-01] MEDS: Levothyroxine TAB* 125 MCG TAB PO SCH (05:47)
[2018-02-01] MEDS: Omeprazole CAP* 20 MG PO SCH (08:34)
[2018-02-01] MEDS: Metoprolol Tartrate TAB* 25 MG PO SCH (08:35)
[2018-02-01] MEDS: Furosemide TAB* 40 MG PO SCH (08:35)
[2018-02-01] MEDS: Cyclobenzaprine TAB* 10 MG PO SCH ×2 (08:35→13:36)
[2018-02-01] MEDS: Sucralfate TAB* 1 GM PO SCH ×2 (08:35→13:36)
[2018-02-01] MEDS: busPIRone TAB* 10 MG PO SCH ×2 (08:36→13:37)
[2018-02-01] MEDS: Polyethylene Glycol 3350* 17 GM PACKET PO SCH (08:36)
[2018-02-01] MEDS: Finasteride TAB* 5 MG PO SCH (08:36)
[2018-02-01] MEDS: THIORIDAZINE 50 MG PO SCH (08:36)
[2018-02-01] MEDS: rOPINIRole TAB* 1 MG PO SCH ×2 (08:36→13:36)
[2018-02-01] MEDS: Lisinopril TAB* 10 MG PO SCH (08:36)
[2018-02-01] MEDS: Pentoxifylline CR TAB* 400 MG PO SCH ×2 (08:36→13:36)
[2018-02-01] MEDS: Tamsulosin CAP* 0.4 MG PO SCH (08:36)
[2018-02-01] MEDS: LORazepam TAB(*) 1 MG PO PRN (08:43)
--- NOTE | 2018-02-01 12:02 | PN ---
Subjective Date of Service: 01/31/18 Interval History: LATE ENTRY: PATIENT SEEN AT 1500 01/31/18 Pt is feeling ok. Overall he states he feels better today. His pain is less. We are working on figuring out where the patient can go on d/c so that he has the appropriate level of support. Pt wants to go back to [place]. Objective Active Medications: Acetaminophen (Tylenol Tab*) 650 mg PO Q4H PRN PRN Reason: FEVER/PAIN Last Admin: 01/29/18 18:05 Dose: 650 mg Al Hydrox/Mg Hydrox/Simethicone (Maalox Plus*) 30 ml PO Q6H PRN PRN Reason: INDIGESTION Albuterol (Ventolin 2.5 Mg/3 Ml Neb.Martha*) 2.5 mg INH [id number] AWAKE PRN PRN Reason: sob/wheezing Buspirone HCl (Buspar Tab*) 20 mg PO TID [facility] Last Admin: 02/01/18 08:36 Dose: 20 mg Cyclobenzaprine HCl (Flexeril Tab*) 10 mg PO TID [facility] Last Admin: 02/01/18 08:35 Dose: 10 mg Finasteride (Proscar Tab*) 5 mg PO DAILY [facility] Last Admin: 02/01/18 08:36 Dose: 5 mg Furosemide (Lasix Tab*) 40 mg PO DAILY [facility] Last Admin: 02/01/18 08:35 Dose: 40 mg Levothyroxine Sodium (Synthroid Tab*) 125 mcg PO 0600 [facility] Last Admin: 02/01/18 05:47 Dose: 125 mcg Lisinopril (Prinivil Tab*) 10 mg PO DAILY [facility] Last Admin: 02/01/18 08:36 Dose: 10 mg Lorazepam (Ativan Tab(*)) 1 mg PO Q6H PRN PRN Reason: ANXIETY Last Admin: 02/01/18 08:43 Dose: 1 mg Magnesium Hydroxide (Milk Of Magnesia Liq*) 30 ml PO Q4H PRN PRN Reason: CONSTIPATION Last Admin: 01/31/18 11:37 Dose: 30 ml Metoprolol Tartrate (Lopressor Tab*) 12.5 mg PO BID [facility] Last Admin: 02/01/18 08:35 Dose: 12.5 mg Omeprazole (Prilosec Cap*) 40 mg PO BID [facility] Last Admin: 02/01/18 08:34 Dose: 40 mg Ondansetron HCl (Zofran Inj*) 4 mg IV Q4H PRN PRN Reason: NAUSEA/VOMITING Last Admin: 01/29/18 12:03 Dose: 4 mg Oxycodone/Acetaminophen (Percocet 5/325 Tab*) 1 tab PO Q4H PRN PRN Reason: Pain Last Admin: 02/01/18 08:43 Dose: 1 tab Pentoxifylline (Trental Cr Tab*) 400 mg PO TID [facility] Last Admin: 02/01/18 08:36 Dose: 400 mg Polyethylene Glycol/Electrolytes (Miralax*) 17 gm PO DAILY PRN PRN Reason: CONSTIPATION Polyethylene Glycol/Electrolytes (Miralax*) 17 gm PO 0800,2100 [facility] Last Admin: 02/01/18 08:36 Dose: 17 gm Rivaroxaban (Xarelto(*)) 15 mg PO 1700 [facility] Last Admin: 01/31/18 17:49 Dose: 15 mg Ropinirole HCl (Requip Tab*) 3 mg PO TID [facility] Last Admin: 02/01/18 08:36 Dose: 3 mg Senna (Senokot Tab*) 2 tab PO BEDTIME [facility] Last Admin: 01/31/18 21:30 Dose: Not Given Sucralfate (Carafate*) 1 gm PO TID [facility] Last Admin: 02/01/18 08:35 Dose: 1 gm Tamsulosin HCl (Flomax Cap*) 0.4 mg PO BID [facility] Last Admin: 02/01/18 08:36 Dose: 0.4 mg Thioridazine HCl (Mellaril*) 50 mg PO BID [facility] Last Admin: 02/01/18 08:36 Dose: 50 mg Vital Signs - 8 hr 02/01/18 02/01/18 02/01/18 04:03 07:36 08:30 Temperature 98.1 F 98.3 F Pulse Rate 91 83 Respiratory 16 18 18 Rate Blood Pressure 125/76 144/79 (mmHg) O2 Sat by Pulse 98 99 Oximetry 02/01/18 02/01/18 02/01/18 08:35 08:43 10:50 Temperature Pulse Rate Respiratory 18 18 16 Rate Blood Pressure (mmHg) O2 Sat by Pulse Oximetry 02/01/18 11:29 Temperature 98.9 F Pulse Rate 85 Respiratory 16 Rate Blood Pressure 121/73 (mmHg) O2 Sat by Pulse 94 Oximetry Oxygen Devices in Use Now: None Appearance: Elderly male lying in bed, sleeping, awakens to voice, NAD Eyes: No Scleral Icterus Ears/Nose/Mouth/Throat: Mucous Membranes Moist Respiratory: Symmetrical Chest Expansion and Respiratory Effort Cardiovascular: NL Sounds; No Murmurs; No JVD, RRR, No Edema Abdominal: NL Sounds; No Tenderness; No Distention Skin: No Nodules or Sclerosis Neurological: Alert and Oriented x 3 Result Diagrams: 01/30/18 06:08 01/30/18 06:08 Microbiology and Other Data: Microbiology 01/26/18 15:45 Urine Culture - Preliminary Urine Enterococcus Faecalis Assess/Plan/Problems-Billing Mr Gasca is a 72 yo M who has a h/o urinary retention x 2 months, HTN, cognitive impairment with psychiatric disorder, left peroneal vein nonocclusive DVT (placed on Xarelto by Dr. Ybarra), hypothyroidism and anxiety who presented to the ER with c/o back pain and CP. - Patient Problems (1) Compression fracture Current Visit: Yes Status: Acute Code(s): OKK9505 - SNOMED Code(s): 967690188 Comment: Pt with mild T6 compression fx and moderately severe L1 compresssion fracture with small adjacent hematoma. Pain improving. Continue current medication regimen of flexeril and percocet. Continue TLSO brace while up out of bed. (2) Urinary retention Current Visit: Yes Status: Acute Code(s): R33.9 - RETENTION OF URINE, UNSPECIFIED SNOMED Code(s): 908388798 Comment: Continue mccullough catheter drainage. Follow up with urology as outpatient. (3) Abnormal urinalysis Current Visit: Yes Status: Acute Code(s): R82.90 - UNSPECIFIED ABNORMAL FINDINGS IN URINE SNOMED Code(s): 091870691 Comment: Pt with abnormal UA and urine grew enterococcus however he is afebrile, without elevated WBC count and has a mccullough catheter in place. Not likely to be UTI. (4) HTN (hypertension) Current Visit: Yes Status: Acute Code(s): I10 - ESSENTIAL (PRIMARY) HYPERTENSION SNOMED Code(s): 45100469 Comment: BP is under good control. Continue current dose of lisinopril and furosemide. (5) Chronic GERD Current Visit: Yes Status: Acute Code(s): K21.9 - GASTRO-ESOPHAGEAL REFLUX DISEASE WITHOUT ESOPHAGITIS SNOMED Code(s): 108121349 Comment: Continue omeprazole. (6) DVT (deep venous thrombosis) Current Visit: Yes Status: Acute Code(s): I82.409 - ACUTE EMBOLISM AND THOMBOS UNSP DEEP VN UNSP LOWER EXTREMITY SNOMED Code(s): 239596161 Comment: Dx with DVT in 09/2017. Has been on xarelto since. (7) Hypothyroid Current Visit: Yes Status: Acute Code(s): E03.9 - HYPOTHYROIDISM, UNSPECIFIED SNOMED Code(s): 46231470 Comment: TSH was in good range 10/21/17. Continue home dose of synthroid. (8) Full code status Current Visit: Yes Status: Acute Code(s): Z78.9 - OTHER SPECIFIED HEALTH STATUS SNOMED Code(s): 982008633 Status and Disposition: back to [place] vs STR
[2018-02-01] MEDS: Rivaroxaban TAB(*) 15 MG PO SCH (17:35)
[2018-02-01 17:38] VITALS: BP 111/72
--- NOTE | 2018-02-02 03:07 | DS ---
CC: Dr. Patel * DISCHARGE SUMMARY: DATE OF ADMISSION: 01/26/18 DATE OF DISCHARGE: 02/01/18 PRIMARY CARE PROVIDER: Dr. Patel PRINCIPAL DIAGNOSES: 1. T6 and L1 compression fractures. 2. Urinary retention. SECONDARY DIAGNOSES: 1. Hypertension. 2. Gastroesophageal reflux disease. 3. Anxiety. 4. Developmental delay/cognitive impairment. 5. Hypothyroidism. 6. Restless legs. 7. Benign prostatic hypertrophy. DISCHARGE MEDICATIONS: 1. Zofran 4 mg p.o. q.6 hours p.r.n., nausea. 2. Lorazepam 1 mg p.o. q.6 hours p.r.n., anxiety. 3. Senna - docusate sodium 2 tabs p.o. q.h.s. 4. MiraLAX 17 g p.o. daily. 5. Finasteride 5 mg p.o. daily. 6. BuSpar 20 mg p.o. t.i.d. 7. Thioridazine 50 mg p.o. b.i.d. 8. Omeprazole 40 mg p.o. b.i.d. 9. Requip 3 mg p.o. t.i.d. 10. Carafate 1 g p.o. t.i.d. 11. Pentoxifylline 400 mg p.o. t.i.d. 12. Flomax 0.4 mg p.o. twice daily. 13. Xarelto 15 mg p.o. daily. 14. Lisinopril 10 mg p.o. daily. 15. Levothyroxine 125 mcg p.o. daily. 16. Lasix 40 mg p.o. daily. 17. Percocet 5/325 one tab p.o. q. 4 hours p.r.n. pain. 18. Metoprolol tartrate 12.5 mg p.o. b.i.d. 19. Ferrous sulfate 325 mg p.o. b.i.d. 20. Flexeril 10 mg p.o. t.i.d. HOSPITAL COURSE: Mr. Gasca is a 72-year-old male who presented to the emergency room on 01/26/18 with complaints of back and chest pain. The patient had been to the emergency room on 01/21/18 and 01/22/18 for pain. At those times, he was discharged back home. On 01/26/18, the patient was identified to have a mild T6 compression fracture and moderately severe compression fracture of L1. The patient was admitted for pain control. He was seen in consultation by Dr. Carrasco on 01/27/18. Dr. Carrasco recommended a TLSO brace. The patient was ultimately fitted for the brace on 01/30/18. Pain continued to be an issue for the patient, however, the patient frequently complaints of pain and asks for more narcotics. It was felt that the increase of narcotics likely would not benefit the patient much more than what he is already receiving. He was maintained on Percocet and Flexeril. Ultimately, it was decided by [facility] that he could return back there to the garden level which is an upgrade from where he had been only in the assisted level previously. The patient is feeling improved and is anxious to be discharged home. On the day of discharge, the patient is awake, alert, and oriented, sitting up in bed, in no acute distress. His vital signs are stable. Cardiac exam reveals a normal S1, S2 with a regular rate and rhythm. His lungs are clear. Abdomen is soft, nontender, nondistended. The patient is able to move all 4 extremities symmetrically. FOLLOWUP CONCERNS: The patient is being discharged home to [facility] today, . ACTIVITY LEVEL: As tolerated. The patient is to wear the TLSO brace when out of bed. DIET: Regular. CONDITION ON DISCHARGE: Stable. The patient should follow up with Dr. Patel in the next 4 to 7 days. The patient will leave the hospital with Flynn catheter in placed due to his history of urinary retention. TIME SPENT: 20 minutes was spent discharging this patient. [id number]/[facility] #: [id number]
== END 2018-02-01 17:45 | disposition home or self-care (01) | DRG 543 ==
LOC: ED 07:21 → SSU 11:51
PROVIDERS: ADMIT Internal Medicine; ATTEND Hospitalist
DX: M48.56XA Collapsed vertebra, not elsewhere classified, lumbar region, initial encounter for fracture (principal); J98.11 Atelectasis; M48.54XA Collapsed vertebra, not elsewhere classified, thoracic region, initial encounter for fracture; I10 Essential (primary) hypertension; E03.9 Hypothyroidism, unspecified; K21.9 Gastro-esophageal reflux disease without esophagitis; G31.84 Mild cognitive impairment of uncertain or unknown etiology; R00.0 Tachycardia, unspecified; K44.9 Diaphragmatic hernia without obstruction or gangrene; M47.896 Other spondylosis, lumbar region; R33.9 Retention of urine, unspecified; F41.9 Anxiety disorder, unspecified; G25.81 Restless legs syndrome; E78.5 Hyperlipidemia, unspecified; R47.1 Dysarthria and anarthria; N40.1 Benign prostatic hyperplasia with lower urinary tract symptoms; R33.8 Other retention of urine; D72.828 Other elevated white blood cell count; G56.03 Carpal tunnel syndrome, bilateral upper limbs; Z79.01 Long term (current) use of anticoagulants; Z79.899 Other long term (current) drug therapy; Z88.6 Allergy status to analgesic agent; Z88.5 Allergy status to narcotic agent; Z88.8 Allergy status to other drugs, medicaments and biological substances; Z82.49 Family history of ischemic heart disease and other diseases of the circulatory system; Z87.891 Personal history of nicotine dependence; Z86.718 Personal history of other venous thrombosis and embolism
CPT/HCPCS: 36415; 71045; 71275; 72131; 80048; 80053; 81003; 81015; 83605; 84484; 85025; 85027; 85379; 85610; 85730; 87077; 87086; 87186; 93005; 99284; A9270-GY; G8978-GP-CL; G8979-GP-CJ; G8980-GP-CJ; G8987-GO-CK; G8988-GO-CI; G8989-GO-CI; J1170; J2270; J2405; J3010; Q9967

== ENCOUNTER 2018-02-08 22:07 | Emergency (ER) | payer MEDICARE, MEDICAID ==
[2018-02-08] MEDS ORDERED: NS 0.9% 1000 ML* 1,000 ML IV ONE (23:01)
--- NOTE | 2018-02-08 23:10 | ED ---
Lower Extremity - HPI Summary HPI Summary: This is scribe Maynor Arthur documenting for attending Dr. Rupinder Rojas MD. A 72 y/o male VIRAL presents to ED c/o hematuria. Additionally c/o flank abdominal pain and back pain reaching 10/10 in severity. In the ED room, the patient has a pulse of 97 BPM, O2 saturation of 20% and blood pressure of 109/ 74. As per triage, "Patient is a resident at [place]. Was brought by an ambulance for hematuria and b/l flank pain". According to the patient, he has experiences hematuria since yesterday. Also, he has been experiencing lots of back and flank pain for the past two weeks. The lower back pain is on both sides. He noted that he was recently diagnosed with a UTI and has a catheter. PCP is Dr. Wooten. - History of Current Complaint Chief Complaint: EDFlankPain Stated Complaint: BLOOD IN CATH. Time Seen by Provider: 02/08/18 22:35 Hx Obtained From: Patient Onset of Pain: Days - Weeks Severity Initially: Severe Severity Currently: Severe Pain Intensity: 10 Pain Scale Used: 0-10 Numeric Timing: Constant Location: Is Diffuse - Back, abdomen Associated Signs And Symptoms: Positive: Abdominal Pain Aggravating Factor(s): Nothing Alleviating Factor(s): Nothing - Allergies/Home Medications Allergies/Adverse Reactions: Allergies Allergy/AdvReac Type Severity Reaction Status Date / Time codeine Allergy Unknown Verified 01/26/18 07:26 Reaction Details ibuprofen Allergy Unknown Verified 01/26/18 07:26 Reaction Details metronidazole [From Flagyl] Allergy Unknown Verified 01/26/18 07:26 Reaction Details morphine Allergy Unknown Verified 01/26/18 07:26 Reaction Details rosuvastatin [From Crestor] Allergy Unknown Verified 01/26/18 07:26 Reaction Details PMH/Surg Hx/FS Hx/Imm Hx Endocrine/Hematology History: Reports: Hx Thyroid Disease Denies: Hx Diabetes Cardiovascular History: Reports: Hx Angina, 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, Hx Hypercholesterolemia, Hx Hypertension, Hx Peripheral Vascular Disease, Other Cardiovascular Problems/Disorders - CHRONIC TACHYCARDIA Denies: Hx Angioplasty, Hx Congestive Heart Failure, Hx Embolism, Hx Pacemaker/ICD Respiratory History: Reports: Other Respiratory Problems/Disorders - chronic cough Denies: Hx Asthma, Hx Chronic Obstructive Pulmonary Disease (COPD), Hx Lung Cancer, Hx Pleural Effusion, Hx Pulmonary Edema, Hx Pulmonary Embolism, Hx Seasonal Allergies, Hx Sleep Apnea GI History: Reports: Hx Gastroesophageal Reflux Disease, Hx Hiatal Hernia, Other GI Disorders Denies: Hx Irritable Bowel History: Reports: Hx Benign Prostatic Hyperplasia, Other Problems/ Disorders - BRENTON Denies: Hx Dialysis, Hx Kidney Infection, Hx Kidney Stones, Hx Renal Disease Musculoskeletal History: Reports: Hx Arthritis, Hx Back Problems Sensory History: Reports: Hx Contacts or Glasses, Hx Eye Injury Denies: Hx Cataracts, Hx Glaucoma, Hx Hearing Aid Opthamlomology History: Reports: Hx Contacts or Glasses, Hx Eye Injury Denies: Hx Cataracts, Hx Glaucoma Neurological History: Reports: Hx Developmental Delay, Hx Headaches, Hx Transient Ischemic Attacks (TIA), Other Neuro Impairments/Disorders - speech impediment Denies: Hx Migraine, Hx Seizures, Hx Spinal Cord Injury Psychiatric History: Reports: Hx Anxiety, Other Psychiatric Issues/Disorders Denies: Hx Depression, Hx Panic Disorder - Cancer History Cancer Type, Location and Year: Skin cancer 1999 - Surgical History Surgery Procedure, Year, and Place: None - Immunization History Date of Tetanus Vaccine: up to date Date of Influenza Vaccine: utd Infectious Disease History: Unable to Obtain/Confirm Infectious Disease History: Denies: Hx of Known/Suspected MRSA, Traveled Outside the [place] in Last 30 Days - Family History Known Family History: Positive: Cardiac Disease, Hypertension Negative: Diabetes - Social History Alcohol Use: None Hx Substance Use: No Substance Use Type: Reports: None Hx Tobacco Use: Yes Smoking Status (MU): Former Smoker Type: Cigarettes Have You Smoked in the Last Year: No Review of Systems Negative: Fever Positive: Abdominal Pain - Flank pain Positive: hematuria, pain Positive: Other - POSITIVE: Back pain All Other Systems Reviewed And Are Negative: Yes Physical Exam - Summary Physical Exam Summary: VITAL SIGNS: Reviewed. GENERAL: Patient is a fully-catheterized male with mild blood in the urine bag who is lying comfortable in the stretcher. Patient is not in any acute respiratory distress. HEAD AND FACE: No signs of trauma. No ecchymosis, hematomas or skull depressions. No sinus tenderness. EYES: PERRLA, EOMI x 2, No injected conjunctiva, no nystagmus. EARS: Hearing grossly intact. Ear canals and tympanic membranes are within normal limits. MOUTH: Oropharynx within normal limits. NECK: Supple, trachea is midline, no adenopathy, no JVD, no carotid bruit, no c- spine tenderness, neck with full ROM. CHEST: Symmetric, no tenderness at palpation LUNGS: Clear to auscultation bilaterally. No wheezing or crackles. CVS: Regular rate and rhythm, S1 and S2 present, no murmurs or gallops appreciated. ABDOMEN: Soft. No signs of distention. No rebound no guarding, and no masses palpated. Bowel sounds are normal. Mild tenderness in the right flank. EXTREMITIES: FROM in all major joints, no edema, no cyanosis or clubbing. Mild tenderness in right back. NEURO: Alert and oriented x 3. No acute neurological deficits. Speech is normal and follows commands. SKIN: Dry and warm Triage Information Reviewed: Yes Vital Signs On Initial Exam: Initial Vitals Temp Pulse Resp BP Pulse Ox 98.5 F 101 18 122/86 98 02/08/18 22:14 02/08/18 22:14 02/08/18 22:14 02/08/18 22:14 02/08/18 22:14 Vital Signs Reviewed: Yes Diagnostics - Vital Signs Vital Signs Temp Pulse Resp BP Pulse Ox 02/08/18 22:14 98.5 F 101 18 122/86 98 - Laboratory Result Diagrams: 02/08/18 23:12 02/08/18 23:12 Lab Statement: Any lab studies that have been ordered have been reviewed, and results considered in the medical decision making process. - CT CT A/P CT Interpretation Completed By: Radiologist - 1. There are small pleural effusions and associated dependent atelectasis. 2. There is a large hiatal hernia containing most of the stomach. No signs of gastric obstruction. 3. There is a nonobstructive bilateral nephrolithiasis. 4. A Flynn catheter is present in the urinary bladder. There is urinary bladder wall thickening and mild fat stranding, cannot exclude mild cystitis. 5. There is colonic diverticulosis without evidence for acute diverticulitis. ED PHYSICIAN REVIEWED THIS RADIOLOGY REPORT. Lower Extremity Course/Dx - Course Course Of Treatment: A 72 y/o male VIRAL presents to ED c/o hematuria. Additionally c/o flank abdominal pain and back pain reaching 10/[address] A/P revealed 1. There are small pleural effusions and associated dependent atelectasis. 2. There is a large hiatal hernia containing most of the stomach. No signs of gastric obstruction. 3. There is a nonobstructive bilateral nephrolithiasis. 4. A Flynn catheter is present in the urinary bladder. There is urinary bladder wall thickening and mild fat stranding, cannot exclude mild cystitis. 5. There is colonic diverticulosis without evidence for acute diverticulitis. In the ED course, the patient recieved Levaquin and IV fluids. Patient will be discharged with a diagnosis of UTI. Patient is to follow up with Urologist, Dr. Wooten, in 1-2 days. Patient is agreeable with this plan. - Diagnoses Provider Diagnoses: UTI (urinary tract infection) Discharge - Sign-Out/Discharge Documenting (check all that apply): Patient Departure - DISCHARGE - Discharge Plan Condition: Stable Disposition: HOME Prescriptions: Levofloxacin TAB* [Levaquin TAB*] 500 mg PO DAILY #7 tab Patient Education Materials: Urinary Tract Infection in Men (ED) Referrals: Liam Patel MD [Primary Care Provider] - Cm Wooten MD [Medical Doctor] - As Soon As Possible Additional Instructions: FOLLOW UP WITH UROLOGIST, DR. WOOTEN, ON SUNDAY. RETURN TO ED FOR ANY NEW OR WORSENING SYMPTOMS.
[2018-02-08 23:22] LABS: ABS Basophils 0.1 10^3/ul (0-0.2); ABS Eosinophils 0.3 10^3/ul (0-0.6); ABS Lymphocytes 1.7 10^3/ul (1.0-4.8); ABS Monocytes 0.9 10^3/ul (0-0.8); ABS Neutrophils 7.4 10^3/ul (1.5-7.7); ABS Nucleated RBC 0 10^3/ul; Eosinophil % 2.6 % (0-6); Hematocrit 40 % (42-52); Hemoglobin 13.3 g/dl (14.0-18.0); Lymphocyte % 15.9 % (25-47); Mean Corpuscular HGB Conc 33 g/dl (31-36); Mean Corpuscular Hemoglobin 31 pg (27-31); Mean Corpuscular Volume 92 fL (80-94); Mean Platelet Volume 5.9 um3 (7.4-10.4); Nucleated Red Blood Cells % 0; Platelet Count 345 10^3/ul (150-450); Red Blood Count 4.34 10^6/ul (4.00-5.40); Red Cell Distribution Width 14 % (10.5-15); White Blood Count 10.4 10^3/ul (3.5-10.8)
[2018-02-08 23:30] LABS: INR 1.45 (0.77-1.02)
[2018-02-08 23:40] LABS: EGFR Non-African American 70.6 (>60)
[2018-02-08 23:56] LABS: Urine Appearance Cloudy; Urine Blood 3+ (Negative); Urine Color Red; Urine Ketones Negative (Negative); Urine Protein 2+(100 mg/dL) (Negative); Urine Red Blood Cell 3+(>10/hpf) (Absent); Urine Urobilinogen Negative (Negative); Urine White Blood Cell 3+(>20/hpf) (Absent)
[2018-02-09] MEDS ORDERED: Levofloxacin TAB* 500 MG PO ONE (00:09)
[2018-02-09 00:46] VITALS: BP 134/92
[2018-02-09] MEDS ORDERED: Acetaminophen TAB* 325 MG ONE (00:58)
[2018-02-09] MEDS ORDERED: Acetaminophen TAB* 325 MG PO ONE (00:59)
--- NOTE | 2018-02-09 09:06 | RAD ---
Indication: Flank pain. Hematuria. CT of the abdomen and pelvis was performed without oral or IV contrast administration. Coronal and sagittal reconstructed images were obtained. No prior study is available for comparison. The lung bases demonstrate bibasilar atelectasis. Small bilateral pleural effusion with compressive atelectasis is noted. Intrathoracic stomach is noted. The liver is enlarged. There are no focal lesions or intrahepatic duct dilatation noted although evaluation is limited due to lack of IV contrast. The gallbladder demonstrates no calcified gallstones. No pericholecystic fluid or wall thickening is identified. The common duct is not dilated. The pancreas demonstrates no mass or pancreatic duct dilatation. The spleen is normal in size. No adrenal masses are noted. The kidneys demonstrate no hydronephrosis in either kidney. Multiple calculi are noted in the renal collecting system. No hydroureter is noted. Multiple cysts are noted in the lower pole of the right kidney with coarse calcification measuring up to 3.0 cm with peripheral calcifications. Other renal cysts are noted in the right kidney. There is a intrathoracic stomach with herniation of the stomach into through the diaphragmatic hiatus. No evidence of gastric outlet obstruction is noted. The appendix is visualized and appears to be within normal limits. Flynn catheter is noted within the urinary bladder and a collapsed urinary bladder. There is some wall thickening of the urinary bladder which may represent cystitis. Diverticulosis without definite evidence of diverticulitis is noted. No hernias are noted. The bony structures demonstrate compression fracture of L1 of approximately 50-75% age of which is undetermined. Diffuse osteopenia and degenerative disc disease is noted. IMPRESSION: There is collapsed urinary bladder with Flynn catheter and thickened wall. I cannot totally exclude cystitis. Intrathoracic stomach is noted. Multiple calculi are noted in the kidneys without definite evidence of obstructive uropathy. Diverticulosis without definite evidence of diverticulitis. Small pleural effusions and bibasilar atelectasis is noted.:
== END 2018-02-09 00:45 | disposition home or self-care (01) ==
LOC: ED 22:07
DX: N39.0 Urinary tract infection, site not specified (principal); R10.84 Generalized abdominal pain; M54.5 Low back pain; Z87.891 Personal history of nicotine dependence
CPT/HCPCS: 36415; 74176; 80053; 81003; 81015; 83690; 83735; 85025; 85610; 85730; 86140; 87077; 87086; 87186; 99283; A9270-GY

== ENCOUNTER 2018-02-10 07:51 | Emergency (ER) | payer MEDICARE, MEDICAID ==
[2018-02-10] MEDS ORDERED: NS 0.9% 1000 ML* 1,000 ML IV ONE (08:00)
[2018-02-10] MEDS ORDERED: oxyCODONE/Acetamin 5/325 MG* TAB PO ONE (08:01)
[2018-02-10] MEDS ORDERED: cefTRIAXone(*) 1 GM in NS 0.9% 50 ML* 50 ML IVPB ONE (08:02)
--- NOTE | 2018-02-10 08:05 | ED ---
GI/ HPI - HPI Summary HPI Summary: This is yue Edwards documenting for attending River Muhammad MD. This patient is a 72 year old M BIBA from [facility] to [facility] with a chief complaint of blood in his mccullough bag that began last night. The patient rates the pain 10/10 in severity. Patient reports diffuse back pain, fever, chills, myalgia, diaphoresis, and numbness in hands/feet. Pt is taking xarelto. He was seen in the ED yesterday and dx with UTI, he is currently taking Cipro for this. He states his catheter has been in place for the last couple weeks. Pt reports hx of tachycardia and kidney stones. - History of Current Complaint Stated Complaint: BLOOD IN URINE Hx Obtained From: Patient Onset/Duration: Started Days Ago - 1, Still Present Timing: Constant Severity: Severe Current Severity: Severe Location of Pain: Diffuse - back Associated Signs and Symptoms: Positive: Other: - back pain, fever, chills, myalgia, diaphoresis, and numbness in hands/feet. - Additional Pertinent History Primary Care Physician: [id number] - Allergy/Home Medications Allergies/Adverse Reactions: Allergies Allergy/AdvReac Type Severity Reaction Status Date / Time codeine Allergy Unknown Verified 01/26/18 07:26 Reaction Details ibuprofen Allergy Unknown Verified 01/26/18 07:26 Reaction Details metronidazole [From Flagyl] Allergy Unknown Verified 01/26/18 07:26 Reaction Details morphine Allergy Unknown Verified 01/26/18 07:26 Reaction Details rosuvastatin [From Crestor] Allergy Unknown Verified 01/26/18 07:26 Reaction Details PMH/Surg Hx/FS Hx/Imm Hx Endocrine/Hematology History: Reports: Hx Thyroid Disease Denies: Hx Diabetes Cardiovascular History: Reports: Hx Angina, 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, Hx Hypercholesterolemia, Hx Hypertension, Hx Peripheral Vascular Disease, Other Cardiovascular Problems/Disorders - CHRONIC TACHYCARDIA Denies: Hx Angioplasty, Hx Congestive Heart Failure, Hx Embolism, Hx Pacemaker/ICD Respiratory History: Reports: Other Respiratory Problems/Disorders - chronic cough Denies: Hx Asthma, Hx Chronic Obstructive Pulmonary Disease (COPD), Hx Lung Cancer, Hx Pleural Effusion, Hx Pulmonary Edema, Hx Pulmonary Embolism, Hx Seasonal Allergies, Hx Sleep Apnea GI History: Reports: Hx Gastroesophageal Reflux Disease, Hx Hiatal Hernia, Other GI Disorders Denies: Hx Irritable Bowel History: Reports: Hx Benign Prostatic Hyperplasia, Other Problems/ Disorders - [place] Denies: Hx Dialysis, Hx Kidney Infection, Hx Kidney Stones, Hx Renal Disease Musculoskeletal History: Reports: Hx Arthritis, Hx Back Problems Sensory History: Reports: Hx Contacts or Glasses, Hx Eye Injury Denies: Hx Cataracts, Hx Glaucoma, Hx Hearing Aid Opthamlomology History: Reports: Hx Contacts or Glasses, Hx Eye Injury Denies: Hx Cataracts, Hx Glaucoma Neurological History: Reports: Hx Developmental Delay, Hx Headaches, Hx Transient Ischemic Attacks (TIA), Other Neuro Impairments/Disorders - speech impediment Denies: Hx Migraine, Hx Seizures, Hx Spinal Cord Injury Psychiatric History: Reports: Hx Anxiety, Other Psychiatric Issues/Disorders Denies: Hx Depression, Hx Panic Disorder - Cancer History Cancer Type, Location and Year: Skin cancer 1999 - Surgical History Surgery Procedure, Year, and Place: None - Immunization History Date of Tetanus Vaccine: up to date Date of Influenza Vaccine: utd Infectious Disease History: Denies: Hx of Known/Suspected MRSA - Family History Known Family History: Positive: Cardiac Disease, Hypertension Negative: Diabetes - Social History Alcohol Use: None Hx Substance Use: No Substance Use Type: Reports: None Hx Tobacco Use: Yes Smoking Status (MU): Former Smoker Type: Cigarettes Have You Smoked in the Last Year: No Review of Systems Positive: Fever, Chills, Skin Diaphoresis Positive: hematuria Positive: Myalgia, Other - diffuse back pain Positive: Numbness - hand and feet All Other Systems Reviewed And Are Negative: Yes Physical Exam - Summary Physical Exam Summary: Appearance: Well appearing, no pain distress, mild pallor Skin: warm, dry, reflects adequate perfusion Head/face: normal Eyes: EOMI, MADDY ENT: normal Neck: supple, non-tender Respiratory: CTA, breath sounds present Cardiovascular: tachycardic but regular, pulses symmetrical Abdomen: non-tender, soft Bowel Sounds: present Musculoskeletal: normal, strength/ROM intact, no CVA tenderness Neuro: normal, sensory motor intact, A&Ox3 Triage Information Reviewed: Yes Vital Signs Reviewed: Yes Diagnostics - Laboratory Result Diagrams: 02/10/18 08:12 02/10/18 08:12 Lab Statement: Any lab studies that have been ordered have been reviewed, and results considered in the medical decision making process. Re-Evaluation - Re-Evaluation First Eval Re-Evaluation Time: :05 Change: Unchanged Comment: I discussed test results and discharge with the patient. GIGU Course/Dx - Course Course Of Treatment: Harinder is a very frequent visitor of the ER and well-known to us. He has had blood in his urine for some time likely due to his anticoagulant. He was started on antibiotics yesterday. His urine is now clean of bacteria. A dose of Rocephin was given here. We will hold his anticoagulant for 4 days. He has schedule follow-up with urology tomorrow. There is no clotting off of the Mccullough catheter. His catheter was irrigated until clear. - Diagnoses Differential Diagnoses - Male: Other - UTI, sepsis, bladder carcinoma, renal cyst Provider Diagnoses: Hematuria, Hx: UTI (urinary tract infection), Adverse effect of anticoagulant Discharge - Sign-Out/Discharge Documenting (check all that apply): Patient Departure - discharged - Discharge Plan Condition: Improved Disposition: [facility] FACILITY Patient Education Materials: Hematuria (ED) Referrals: Liam Patel MD [Primary Care Provider] - Additional Instructions: Stop xarelto for 4 days. Medication can be restarted after that time. Follow- up with the urologist tomorrow as scheduled. Return with high fever, vomiting, worse, new symptoms or other concerns. - Billing Disposition and Condition Condition: IMPROVED Disposition: Long-Term Facility
[2018-02-10 08:20] LABS: Hematocrit 40 % (42-52); Hemoglobin 13.8 g/dl (14.0-18.0); Mean Corpuscular HGB Conc 34 g/dl (31-36); Mean Corpuscular Hemoglobin 31 pg (27-31); Mean Corpuscular Volume 91 fL (80-94); Platelet Count 320 10^3/ul (150-450); Red Blood Count 4.43 10^6/ul (4.00-5.40); Red Cell Distribution Width 14 % (10.5-15); White Blood Count 11.1 10^3/ul (3.5-10.8)
[2018-02-10 08:23] LABS: ABS Basophils 0.1 10^3/ul (0-0.2); ABS Eosinophils 0.2 10^3/ul (0-0.6); ABS Lymphocytes 1.5 10^3/ul (1.0-4.8); ABS Monocytes 0.7 10^3/ul (0-0.8); ABS Neutrophils 8.6 10^3/ul (1.5-7.7); ABS Nucleated RBC 0 10^3/ul; Lymphocyte % 13.7 % (25-47); Nucleated Red Blood Cells % 0
[2018-02-10 08:35] LABS: EGFR Non-African American 78.4 (>60)
[2018-02-10 08:38] LABS: Urine Appearance Cloudy; Urine Blood 3+ (Negative); Urine Color Yellow; Urine Ketones Negative (Negative); Urine Protein 2+(100 mg/dL) (Negative); Urine Red Blood Cell 3+(>10/hpf) (Absent); Urine Specific Gravity 1.006 (1.010-1.030); Urine Urobilinogen Negative (Negative); Urine White Blood Cell 3+(>20/hpf) (Absent)
[2018-02-10] MEDS ORDERED: cefTRIAXone(*) 1 GM ADVAN/BAG ONE (09:11)
--- OUTSIDE RECORDS SUMMARY | 2018-02-10 09:20 | XMS REPORT ---
:1945 External Reference #:[id number] Author Organization [facility] Address [address] [place] [address] [address] [place] [address] Phone [phone] Care Team Providers Name Role Phone Liam Patel MD Primary Care Physician Unavailable Payers Type Date Identification Numbers Payment Provider Subscriber Medicare Primary Effective: Policy Number: Medicare Harinder Gasca 2000 [id number] PayID: [id number] [address] [place] [address] Medigap Part B Policy Number: [id number] Medicaid Harinder Gasca PayID: [id number] [address] [place] [address] Medigap Part B Group Name: [facility] Harinder Gasca [place] PayID: [id number] [place] [address] Problems Date Description Provider Status Onset: 07/22/2012 [...] Active Onset: 08/03/2017 Localized, primary osteoarthritis Sal Rmaon MD Active of the ankle and/or foot Onset: 09/28/2017 Plantar fascial fibromatosis Sal Ramon MD Active Onset: 09/28/2017 Stress fracture of metatarsal Sal Ramon MD Active bone Onset: 11/27/2017 Strain of vinnie/tend the rotator Fady Jara MD Active cuff of left shoulder, subs Onset: 11/27/2017 Strain of musc/tend the rotator Fady Jara MD Active cuff of right shoulder, subs Family History Date Family Member(s) Problem(s) Comments General Diabetes General Heart Disease : (age 78 Years) Father due to Liver Disease : (age 67 Years) Mother due to Stroke Mother due to [place] () Siblings 1 First Brother Alive And [...] Form Strength Qnty SIG Indications Ordering Provider Furosemide 11/09 Active Tablets 40mg 30tab 1 by mouth Sherrie SCecille /2017 s every day Bashir N.P. Lisinopril Active Tablets 10mg 30tab 1 po qd Unknown / s Trental Active Tablets 400mg tid / ER Ferrous Sulfate Active Tablets 325(65Fe) 1 by mouth Unknown /0000 mg bid Multivitamin Active Tablets 1 by mouth Unknown /0000 every day Thioridazine HCL Active Tablets 25mg 1 tab po tid / Aspirin Ec Low Active Tablets 325mg 1 by mouth Unknown Dose /0000 DR every day Tamsulosin HCL Active Capsules 0.4mg 1 by mouth Unknown / daily Ropinirole HCL Active Tablets 3mg 3 by mouth Unknown three times daily Pentoxifylline ER Active Tablets 400mg take one Unknown ER capsule/tabl et daily by mouth Sucralfate Active Tablets 1gm 1 by mouth Unknown three times a day Omeprazole Active Capsules 40mg 1 by mouth Unknown /0000 DR every day Buspirone HCL Active Tablets 15mg 1 tablet Unknown / three times daily. Ondansetron HCL Active Tablets 4mg one by mouth Unknown / every 8 hours as needed for nausea Cyclobenzaprine Active Tablets 10mg 1 tablet by Unknown HCL / mouth bid prn Levothyroxine Active Tablets 125mcg 1 by mouth Unknown Sodium / every day Tramadol HCL Active Tablets 50mg 1-2 tablets Unknown every 6 hours as needed Miralax Active Powder 3350NF 17 gm every Unknown day mixed w/ 8 oz water/juice Ativan Active Tablets 1mg take 1 tablet 45 min prior to mri, may repeat 1 x before mri if remains anxious. do not drive after taking Xarelto Active Tablets 15mg 1 by mouth Unknown / every day Doxycycline Active Tablets 100mg 2 by mouth Unknown Monohydrate daily Tamsulosin HCL Active Capsules 0.4mg Liam Oliveros MD Diltiazem HCL Active Tablets 30mg take one Unknown /0000 tablet as needed for tachycardia Metoprolol Active Tablets 25mg 1/2 tablet Unknown Tartrate by mouth twice a day Potassium 11/09 Hx Tablets 20Meq 30tab Take 2 tabs I49.1 Sherrie S. Chloride ER /2017 ER s daily for 3 Foster, - days then 1 N.P. 01/07 tab daily Cardizem 10/09 Hx Tablets 30mg 90tab 1 by mouth Qutayb s three times S. - a day 11/06/17 Maghaydah 11/08 Hold (Tea VILLA /2018 aware) Tramadol HCL 02/23 Hx Tablets 50mg 60tab 2 tablets M19.011 s every 8 Yaseen, - hours as 04/09 needed Horizant 01/25 Hx Tablets 300mg 30tab 1 po qhs Benny . ER s Fran, - M.D. 08/21 Ondansetron HCL 12/11 Hx Tablets 8mg 90tab 1 by mouth Benny . s three times Fran, - a day as M.D. 08/22 needed nausea Ondansetron HCL 10/12 Hx Tablets 8mg 90tab 1 by mouth G25.81 Benny . s three times Fran, - a day as M.D. 12/07 needed nausea R11.0 Gabapentin 09/25/2013 - Hx Capsules 300mg 60caps 1 po qhs for 1 Benny Rodriguez 10/28/2013 wk then 1 at [place], 6PM and 1 at M.D. hs Dilaudid 03/05/2013 - Hx Tablets 2mg 10tabs 1 tab po bid Ted 08/20/2013 prn pain Wilton, Willi. Ultram 02/28/2013 - Hx Tablets 50mg 60tabs sig 1 to 2 Ted 03/05/2013 tabs tid prn, [place], take with 2 ES M.D. tylenol Percocet 01/10/2013 - Hx Tablets 5-325mg 60tabs take 1-2 tabs Les Cunningham, 02/04/2013 po tid prn M.D. pain Crowder 01/03/2013 - Hx Tablets 5-325mg 30tabs take 1-2 tab Les Cunningham 02/04/2013 po tid prn M.D. pain Ibuprofen 01/03/2013 - Hx Tablets 600mg 90tabs 1 po tid prn Les Cunningham, 08/20/2013 pain and M.D. inflammation Tramadol HCL ER 12/31/2012 - Hx Caps ER 150mg 40caps take 1 po bid Les Cunningham 02/28/2013 24HR prn pain M.D. Ropinirole HCL 11/08/2012 - Hx Tablets 3mg 270tabs 3 tabs by Benny Rodriguez 01/26/2015 mouth three [place], times a day M.D. Ropinirole HCL 08/19/2012 - Hx Tablets 5mg 90tabs 1 tab by mouth Salome Horta 11/08/2012 three times a raza [place]resham as Tea directed Ropinirole HCL 04/30/2012 - Hx Tablets 5mg 90tabs 1 tab by mouth Salome Horta 07/19/2012 three times a raza [place] M.D. Zetia 03/24/2005 - Hx Tablets 10mg 30tabs 1 po qd Josh Patel 07/19/2012 Tea Duvall Zetia 01/02/2005 - Hx Tablets 10mg 30tabs 1 po qod Josh Patel 03/24/2005 Tea Duvall Welchol 11/03/2004 - Hx Tablets 625mg 270tabs 6 po qpm with Josh Patel 03/24/2005 meals Tea Duvall Mellaril 11/02/2004 - Hx Tablets 50mg 60tabs 2 PO bid Josh JosieCecille 12/07/2016 Tea Duvall Prilosec 11/02/2004 - Hx Capsules 20mg 60caps 1 PO qd Josh Patel 07/19/2012 Tea Duvall Lescol XL 11/02/2004 - Hx Tablets 80mg 30tabs 1 PO qd Josh Patel 07/19/2012 Tea Duvall Zetia 11/02/2004 - Hx Tablets 10mg 90tabs 1 po qd Josh FCecille 11/03/2004 Tea Duvall Advair Diskus 11/02/2004 - Hx Inhaler 500mcg; 1 PO bid Josh Patel 07/19/2012 50mcg Tea Duvall Proventil 11/02/2004 - Hx Aerosol 90mcg/D as Directed Josh Patel 07/19/2012 ose Tea Duvall Vitamins Multiple 11/02/2004 - Hx Caplets 30caps 1 PO qd Josh Patel 07/19/2012 Tea Duvall Carafate - Hx Tablets 1gm 30tabs 1 po tid prn Unknown 07/22/2012 Nexium - Hx Capsules 40mg 90caps 1 po bid Unknown 12/07/2016 DR 125 mcg - Hx Tablets 137mcg 30tabs [...] 3mg 540tabs 3 tabs by Eulogio 08/21/2017 tahira Walker M.D. times a day Carisoprodol - Hx Tablets [...] Provider Depomedrol 40MG 01/03/ Administered Injection Ewelina Salvador M.D. Depomedrol 40MG 01/03/ Administered Injection Ewelina 2017 Tea Salvador Triamcinolone 06/21/ Administered Injection Zaneb (Kenalog) 2017 MD Marek [...] Tea Cunningham Depomedrol 80MG 06/14/ Administered Injection Raman Conway, 2010 eTa Depomedrol 80MG 06/14/ Administered Injection Dirk Zoraida, 2010 Tea Depomedrol 80MG 04/03/ Administered Injection Xi Vines M.D. Vital Signs Date Vital Result Comment 02/07/2018 Height 70 inches 5'10" Weight 177.00 lb Heart Rate 80 /min BP Systolic Sitting 124 mmHg BP Diastolic Sitting 82 mmHg BMI (Body Mass Index) 25.4 kg/m2 01/08/2018 Height 70 inches 5'10" Weight 170.00 [...] Laboratory test finding 11/09/2017 Magnesium <pending> 1 [id number] 2 Because ethnic data is not always [...] 5 Kidney failure <15 (or dialysis) 3 [id number] Procedures Date CPT Code Description Status 01/03/2018 Inject/Drain Joint/Bursa Small W/O US Completed 12/27/201784407 Inject/Drain Joint/Bursa Major W/O US Completed 11/29/2017 01742 Removal Devitalization Tissue Wound Less Than Equal 20 Completed Square CM 11/08/2017 44454 Holter Monitor Review (24 hr)dr gerber & interp only Completed 11/06/2017 69500 ECG Monitor/Recording W/Visual Superimposition Scanning Completed 10/05/2017 85189 ECHO Transthoracic, Real-Time 2D With Doppler And Color Completed Flow 10/05/2017 10218 ECHO Transthoracic, Real-Time 2D With Doppler And Color Completed Flow 09/20/2017 73077 Holter Monitor Review (24 hr)dr gerber & russel only Completed 09/19/2017 42063 ECG Monitor/Recording W/Visual Superimposition Scanning Completed 08/28/2017 27295 Inject/Drain Joint/Bursa Major W/O US Completed 08/22/2017 38852 EKG Tracing & Interpretation Completed 05/29/201704801 Inject/Drain Joint/Bursa Major W/O US Completed 02/23/201713162 Inject/Drain Joint/Bursa Major W/O US Completed 01/05/2017 99128 EKG, Interpretation Only Completed 12/26/2016 37556 Inject Tendon Sheath Or Ligament Aponeurosis Eg Plantar Completed Fascia 09/27/2016 40402 ECHO Transthoracic, Real-Time 2D With Doppler And Color Completed Flow 03/08/2016 15872 ECHO Transthorasic Realtime 2D W Doppler & Color Flow Completed Hosp 03/08/2016 63394 EKG, Interpretation Only Completed 01/27/201530386 Inject/Drain Joint/Bursa Major W/O US Completed 04/10/201343687 Inject/Drain Joint/Bursa Major W/O US Completed 02/28/2013 42306 Rad Shoulder Comp, Min. 2 Views Completed 12/26/201252937 Inject/Drain Joint/Bursa Major W/O US Completed 12/26/201291553 Inject/Drain Joint/Bursa Major W/O US Completed 08/13/2012 33668 Holter Monitoring 24 HR New Completed 08/09/201226628 Inject/Drain Joint/Bursa Major W/O US Completed 07/31/2012 05234 ECHO Stress Test Incl Perf Contiuous ekg Monitoring Completed W/Phys Superv 07/31/2012 00217 ECHO Stress Test Incl Perf Contiuous ekg Monitoring Completed W/Phys Superv 07/22/2012 09071 EKG Tracing & Interpretation Completed 06/18/2012 17256 ECHO Transthoracic, Real-Time 2D With Doppler And Color Completed Flow 03/25/2012 07590 Rad Exam; Hand Limited Completed 03/25/2012 05271 Rad Exam; Hand Limited Completed 03/19/201216695 Inject/Drain Joint/Bursa Major W/O US Completed 03/19/201230827 Inject/Drain Joint/Bursa Major W/O US Completed 11/23/201157758 Inject/Drain Joint/Bursa Major W/O US Completed 09/14/201188044 Inject/Drain Joint/Bursa Major W/O US Completed 09/14/201172245 Inject/Drain Joint/Bursa Major W/O US Completed 06/14/201181537 Inject/Drain Joint/Bursa Major W/O US Completed 06/14/201150580 Inject/Drain Joint/Bursa Major W/O US Completed 04/03/2011 75267 Rad Shoulder Comp, Min. 2 Views Completed 04/03/2011 77511 Rad Shoulder Comp, Min. 2 Views Completed 04/03/201185453 Inject/Drain Joint/Bursa Intermediate W/O US Completed 11/03/2004 71773 EKG Tracing & Interpretation Completed Encounters Type Date Location Provider CPT E/M Dx Office Visit 01/27/2018 [facility] [place], [address] S32.010A 7:00a Of Libby Metcalf Office Visit 01/08/2018 [facility] [address] S46.012D 11:00a [place]un S46.011D M19.011 M19.012 Office Visit 01/03/2018 9:00a [facility] Ewelina Salvador, 58824 M19.042 Of Chun Metcalf M19.041 M18.0 Office Visit 12/27/2017 1:15p [facility] [address] S46.012D Chun S46.011D M19.011 M19.012 M25.541 M25.542 Office Visit 12/19/2017 12:00p [facility], Marilu Garcia, 76578 R33.9 Hospitalists D.OCecille B95.7 N39.0 S32.040A K21.9 E03.9 Office Visit 12/18/2017 11:59a [facility], Marlene Noel, N.PCecille [address]95 R33.9 Hospitalists B95.7 N39.0 S32.040A K21.9 E03.9 Office Visit 12/17/2017 11:58a [facility], Marilu Garcia, 48779 R33.9 Hospitalists D.OCecille N39.0 M79.604 M79.605 K21.9 E03.9 Office Visit 12/16/2017 11:58a [facility], Cam Schilling, 30276 R33.9 Hospitalists Tea N39.0 M79.604 M79.605 K21.9 E03.9 Office Visit 12/15/2017 11:57a [facility], Cam Schilling, 79813 N39.0 Hospitalists Tea R33.9 K21.9 E03.9 Office Visit 11/29/2017 12:45p [facility] Benny Law, 54743 L89.322 AT [facility] M.D. 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 R00.0 I49.1 I10 I71.9 E78.5 Office Visit 10/16/2017 2:00p [facility] [place] [address] M76.62 C.M.A. M72.2 Office Visit 10/09/2017 1:10p [facility] Michael Moreno, 45555 I49.1 M.DCecille R00.0 I10 I71.9 E78.5 I35.1 I34.0 Office Visit 09/28/2017 10:15a [facility] [address] M76.62 C.M.ACecille M72.2 M84.375A M79.672 Office Visit 08/22/2017 2:20p [facility] Michael Moreno, 39143 R00.0 M.D. R60.9 R06.02 R00.2 R94.31 Office Visit 08/03/2017 11:00a [facility] [address] M76.62 Abdelrahman.M.ACecille M19.071 Office Visit 04/10/2017 1:00p [facility] Arturo Posadas, 56364 M19.011 Of [place]un [place] M19.012 M75.21 M75.22 S46.111D M47.812 Office Visit 02/23/2017 9:30a [facility] [address] M19.011 Chun M19.012 Office Visit 01/05/2017 3:05p [facility] Of Arturo Galindo 08721 S70.01xA [place]un Posadas MD Office Visit 01/05/2017 1:35p [facility] Dane Bartholomew, 20760 M25.551 Assoc,pc Hospitalists I10 K21.9 R00.0 Office Visit 01/04/2017 1:34p [facility] [place] [address] M25.551 Assoc,pc Hospitalists I10 K21.9 R00.0 Office Visit 12/26/2016 1:00p [facility] Arturo Josie Cuauhtemoc, 62483 M19.011 Of [place]un WEINBERG M19.012 S46.211A S46.102A M75.21 M75.22 Office Visit 12/11/2016 2:00p [facility] Benny Linaresney, 06989 G25.81 Services Of Libby Metcalf R11.0 Office Visit 10/16/2016 2:58p [facility] Caleb Raines, 35308 L03.211 Assoc,pc Hospitalists Tea L03.213 K04.7 R41.89 Office Visit 10/15/2016 2:57p [facility] [place] [address] L03.211 Hospitalists L03.213 K04.7 R41.89 Office Visit 10/02/2016 10:52a [facility] Brad Mendez, 77341 R20.0 R47.81 Office Visit 10/02/2016 3:15p [facility] [place], [address] I63.9 Assoc,pc Hospitalists Tea I10 E78.5 E03.9 Office Visit 03/28/2016 1:25p [facility] Giselle Lomeli, 91761 R33.9 Assoc,pc PURLER Hospitalists N17.9 I10 E03.9 Office Visit 03/11/2016 7:41a [facility] Marilu Garcia, 10588 R07.9 Hospitalists D.O. N17.9 R33.9 I10 Office Visit 03/10/2016 7:40a [facility] Marilu Garcia, 05408 R07.9 Hospitalists D.O. N17.9 R33.9 I10 Office Visit 03/09/2016 7:39a [facility] Tiffany Kidd, 48580 R07.9 Hospitalists Tea N17.9 E86.0 I10 Office Visit 03/08/2016 7:39a [facility] Lizbet Suggs, PURLER 58206 R07.9 Hospitalists F79 I10 Office Visit 09/14/2015 11:45a [facility] Benny Peters, 59246 G25.81 Services Of Plug Making Operator M.D. Office Visit 05/27/2015 10:30a [facility] Ted Obandomckenzie 42883 M19.011 Of Chun Metcalf M19.012 Office Visit 01/27/2015 11:00a [facility] Of Ted Obandomckenzie 06013 715.11 C.Lisbet Metcalf Office Visit 11/10/2014 10:30a [facility] Benny Peters 60973 333.94 Services Of Plug Making Operator M.D. Office Visit 10/28/2013 11:45a [facility] Benny Peters 03188 333.94 Services Of Plug Making Operator M.D. Office Visit 08/20/2013 10:00a [facility] Of Ted Obandomckenzie 88100 715.11 C.MAlva Metcalf Office Visit 04/10/2013 10:45a [facility] Of Ted Obandomckenzie 45365 715.11 CPatience Metcalf Office Visit 02/28/2013 10:00a [facility] Of Ted Obandomckenzie 91154 715.11 CPatience Metcalf Office Visit 02/04/2013 10:00a [facility] Of Les Cunningham M.D. 01510 727.62 C.M.A. Office Visit 01/10/2013 11:15a [facility] Of Les Cunningham M.D. 68305 715.11 C.M.ACecille 727.62 Office Visit 12/31/2012 2:00p [facility] Of Les Cunningham M.D. 11390 715.11 C.M.ACecille Office Visit 12/26/2012 11:00a [facility] Of Les Cunningham M.D. 61287 715.11 C.M.ACecille Office Visit 09/03/2012 2:00p [facility] Hanane Peters 48461 333.94 Services Of Plug Making Operator M.D. Office Visit 08/21/2012 11:00a [facility] Annamaria Rodriguez 52635 785.1 Tea Moreno 785.0 401.1 272.2 Office Visit 08/09/2012 11:30a [facility] Of Les Cunningham M.D. 50372 715.11 C.MCecilleACecille 719.41 Office Visit 07/24/2012 9:45a [facility] Christina Wells, 21984 715.34 Of C.MAlva Metcalf Office Visit 07/22/2012 9:40a [facility] Annamaria Moreno, 04491 785.0 MJoanna 272.2 401.1 785.1 786.05 Office Visit 04/30/2012 2:45p [facility] Salome Gresham, 59224 333.94 Services Of Libby M.James Office Visit 03/25/2012 11:00a [facility] Christina 22280 715.11 Of [place]un Wells M.D. Office Visit 03/19/2012 2:45p [facility] Les Cunningham M.D. 31195 715.11 Of C.M.ACecille Office Visit 11/23/2011 10:00a [facility] Les Cunningham M.D. 23054 715.91 Of Chun 715.11 Office Visit 09/14/2011 11:00a [facility] Of Les Cunningham M.D. 37291 715.11 C.M.ACecille Office Visit 06/14/2011 2:00p [facility] Of Raman Conway M.D. 38950 715.11 C.M.ACecille Office Visit 04/03/2011 10:45a [facility] Of Raman Conway M.D. 46620 715.11 C.M.ACecille Office Visit 03/19/2007 2:00p [facility] Dane Shea, 17671 721.0 Of Libby Metcalf Office Visit 11/03/2004 10:20a [facility] Josh Patel 09787 272.0 Tea Duvall Plan of Care Future Appointment(s):02/11/2019 2:00 pm - Benny Peters M.D. at [facility]04/02/2018 10:00 am - Fady Jara MD at [facility] Of Chun
[2018-02-10 10:01] VITALS: BP 128/82
--- NOTE | 2018-02-11 07:21 | PN ---
Progress Note - Progress Note Date of Service: 02/10/18 Note: Patient is currently on antibiotics Organism grew enterococcus faecalis We'll await sensitivities Nothing further at this time
== END 2018-02-10 10:27 ==
LOC: ED 07:51
DX: R31.9 Hematuria, unspecified (principal); N39.0 Urinary tract infection, site not specified; T45.515A Adverse effect of anticoagulants, initial encounter; M54.9 Dorsalgia, unspecified; R50.9 Fever, unspecified; Z87.891 Personal history of nicotine dependence
CPT/HCPCS: 36415; 80048; 81003; 81015; 83605; 85025; 87086; 99284; A9270-GY; J0696

== ENCOUNTER 2018-02-18 17:18 | Emergency (ER) | payer MEDICARE, MEDICAID ==
--- NOTE | 2018-02-18 18:12 | ED ---
Complex/Multi-Sys Presentation - HPI Summary HPI Summary: This is scribe Jh Harry documenting for attending Bharath Moseley MD. This patient is a 72 year old M BIBA to [facility]. He reports back pain, dizziness when standing up, near-syncope, tachycardia, subjective fever, chest pressure from back pains, diaphoresis, weakness, diarrhea yesterday and this morning, and tingling in extremities. Patient rates the pain 10/10 in severity. I, Dr. Moseley, personally performed the services described in this documentation as scribed in my presence, and it is both accurate and complete. - History Of Current Complaint Chief Complaint: EDGeneral Time Seen by Provider: 02/18/18 17:41 Hx Obtained From: Patient Onset/Duration: Still Present Timing: Constant Severity Currently: Severe Severity Initially: Severe Associated Signs And Symptoms: Positive: Dizziness - when standing up, Back Pain , Fever, Other - Tachycardia - Allergies/Home Medications Allergies/Adverse Reactions: Allergies Allergy/AdvReac Type Severity Reaction Status Date / Time codeine Allergy Unknown Verified 01/26/18 07:26 Reaction Details ibuprofen Allergy Unknown Verified 01/26/18 07:26 Reaction Details metronidazole [From Flagyl] Allergy Unknown Verified 01/26/18 07:26 Reaction Details morphine Allergy Unknown Verified 01/26/18 07:26 Reaction Details rosuvastatin [From Crestor] Allergy Unknown Verified 01/26/18 07:26 Reaction Details PMH/Surg Hx/FS Hx/Imm Hx Endocrine/Hematology History: Reports: Hx Thyroid Disease Denies: Hx Diabetes Cardiovascular History: Reports: Hx Angina, 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, Hx Hypercholesterolemia, Hx Hypertension, Hx Peripheral Vascular Disease, Other Cardiovascular Problems/Disorders - CHRONIC TACHYCARDIA Denies: Hx Angioplasty, Hx Congestive Heart Failure, Hx Embolism, Hx Pacemaker/ICD Respiratory History: Reports: Other Respiratory Problems/Disorders - chronic cough Denies: Hx Asthma, Hx Chronic Obstructive Pulmonary Disease (COPD), Hx Lung Cancer, Hx Pleural Effusion, Hx Pulmonary Edema, Hx Pulmonary Embolism, Hx Seasonal Allergies, Hx Sleep Apnea GI History: Reports: Hx Gastroesophageal Reflux Disease, Hx Hiatal Hernia, Other GI Disorders Denies: Hx Irritable Bowel History: Reports: Hx Benign Prostatic Hyperplasia, Other Problems/ Disorders - [place] Denies: Hx Dialysis, Hx Kidney Infection, Hx Kidney Stones, Hx Renal Disease Musculoskeletal History: Reports: Hx Arthritis, Hx Back Problems Sensory History: Reports: Hx Contacts or Glasses, Hx Eye Injury Denies: Hx Cataracts, Hx Glaucoma, Hx Hearing Aid Opthamlomology History: Reports: Hx Contacts or Glasses, Hx Eye Injury Denies: Hx Cataracts, Hx Glaucoma Neurological History: Reports: Hx Developmental Delay, Hx Headaches, Hx Transient Ischemic Attacks (TIA), Other Neuro Impairments/Disorders - speech impediment Denies: Hx Migraine, Hx Seizures, Hx Spinal Cord Injury Psychiatric History: Reports: Hx Anxiety, Other Psychiatric Issues/Disorders Denies: Hx Depression, Hx Panic Disorder - Cancer History Cancer Type, Location and Year: Skin cancer 1999 - Surgical History Surgery Procedure, Year, and Place: None - Immunization History Date of Tetanus Vaccine: up to date Date of Influenza Vaccine: utd Infectious Disease History: No Infectious Disease History: Denies: Hx of Known/Suspected MRSA, Traveled Outside the [place] in Last 30 Days - Family History Known Family History: Positive: Cardiac Disease, Hypertension Negative: Diabetes - Social History Occupation: Retired Alcohol Use: None Hx Substance Use: No Substance Use Type: Reports: None Hx Tobacco Use: Yes Smoking Status (MU): Former Smoker Type: Cigarettes Have You Smoked in the Last Year: No Review of Systems Positive: Fever - Subjective fever, Skin Diaphoresis Positive: Other - Tachycardia, chest pressure from back pains Positive: Diarrhea - yesterday and this morning Positive: Other - Back pain Neurological: Other - Dizziness when standing up Positive: Weakness, Paresthesia - in extremities, Syncope - Near-syncope All Other Systems Reviewed And Are Negative: Yes Physical Exam - Summary Physical Exam Summary: VITAL SIGNS: Reviewed. GENERAL: Patient is an elderly, fragile MALE who is lying comfortable in the stretcher. Patient is not in any acute respiratory distress. HEAD AND FACE: No signs of trauma. No ecchymosis, hematomas or skull depressions. No sinus tenderness. EYES: PERRLA, EOMI x 2, No injected conjunctiva, no nystagmus. EARS: Hearing grossly intact. Ear canals and tympanic membranes are within normal limits. MOUTH: Dry mouth. NECK: Supple, trachea is midline, no adenopathy, no JVD, no carotid bruit, no c- spine tenderness, neck with full ROM. CHEST: Symmetric, no tenderness at palpation LUNGS: Clear to auscultation bilaterally. No wheezing or crackles. CVS: Tachycardic with regular rhythm, S1 and S2 present, no murmurs or gallops appreciated. ABDOMEN: Soft, non-tender. No signs of distention. No rebound no guarding, and no masses palpated. Bowel sounds are normal. EXTREMITIES: FROM in all major joints, no edema, no cyanosis or clubbing. NEURO: Alert and oriented x 3. No acute neurological deficits. Mumbles, but it is likely baseline. SKIN: Dry and warm Triage Information Reviewed: Yes Vital Signs On Initial Exam: Initial Vitals Temp Pulse Resp BP Pulse Ox 99 F 118 24 110/88 97 02/18/18 17:27 02/18/18 17:27 02/18/18 17:27 02/18/18 17:27 02/18/18 17:27 Vital Signs Reviewed: Yes Diagnostics - Vital Signs Vital Signs Temp Pulse Resp BP Pulse Ox 02/18/18 17:31 119 24 96 02/18/18 17:27 99 F 118 24 110/88 97 - Laboratory Result Diagrams: 02/18/18 18:09 02/18/18 18:09 Lab Statement: Any lab studies that have been ordered have been reviewed, and results considered in the medical decision making process. - EKG No standard instances Cardiac Rate: Tachycardia - 118 BPM EKG Rhythm: Sinus Rhythm EKG Interpretation: Read 18:05. No ST elevations. Multiple PVCs.Similar to EKG done on 01/29/18 Complex Multi-Symp Course/Dx Assessment/Plan: This patient is a 72-year-old male who presents to the emergency department with a chief complaint of having dizziness, dehydration, occasional diarrhea, and occasional back pain. Patient is not a very good historian. Past medical history significant for hypertension chronic tachycardia, orthostatic hypotension, kidney injury, and UTIs. Patient has a chronic Flynn catheter. Patient denies any fevers or chills. Vital signs stable except for his chronic tachycardia. The patient has no palpable pressure of 123/79. The patient was hydrated with 1 L of fluids, the patient was given meclizine for it vertigo. Patient also reports that he has chronic vertigo. After the patient was hydrated and given the meclizine, his symptoms improved. He reports that he is hungry and he was able to eat and drink without any nausea vomiting or dizziness. I did not perform a head CT at this point since the patient is neurological intact and he doesnt have any acute neurological focal deficits. The patient is back to his baseline. Blood work without any significant abnormality except above is a count of 11.8, anion gap is 12, creatinine 1.2, glucose 105. The patient has an indwelling Flynn catheter therefore did not send the urine but is contaminated. And since he doesnt have any complaints of dysuria, fevers or chills I did not send the urinalysis. At this point I discussed my physical exam, findings and test results with the patient and I was sent back to the senior living. Patient reports that he is not having going to the same senior living he wants to go to a different senior living. At this point I also told him that if he wants to change the senior living he should talk to the staff of the current senior living and see if they can change. He agrees that he wants to go back to his current senior living. Patient is hemodynamically stable alert oriented 3. - Diagnoses Provider Diagnoses: Dizziness, Tachycardia, Vertigo Discharge - Sign-Out/Discharge Documenting (check all that apply): Patient Departure - D/C - Discharge Plan Condition: Stable Disposition: HOME Prescriptions: Meclizine TAB* [Antivert 12.5 TAB*] 25 mg PO TID PRN #20 tab PRN Reason: Dizziness Patient Education Materials: Vertigo (ED), Tachycardia (ED) Referrals: Liam Patel MD [Primary Care Provider] - 3 Days Additional Instructions: RETURN TO THE ED FOR ANY WORSENING OR NEW SYMPTOMS
[2018-02-18 18:23] LABS: ABS Basophils 0.1 10^3/ul (0-0.2); ABS Eosinophils 0.2 10^3/ul (0-0.6); ABS Lymphocytes 2.4 10^3/ul (1.0-4.8); ABS Monocytes 0.9 10^3/ul (0-0.8); ABS Neutrophils 8.2 10^3/ul (1.5-7.7); ABS Nucleated RBC 0 10^3/ul; Eosinophil % 1.5 % (0-6); Hematocrit 45 % (42-52); Hemoglobin 15.2 g/dl (14.0-18.0); Lymphocyte % 20.5 % (25-47); Mean Corpuscular HGB Conc 34 g/dl (31-36); Mean Corpuscular Hemoglobin 31 pg (27-31); Mean Corpuscular Volume 91 fL (80-94); Mean Platelet Volume 6.1 um3 (7.4-10.4); Nucleated Red Blood Cells % 0.1; Platelet Count 309 10^3/ul (150-450); Red Cell Distribution Width 14 % (10.5-15); White Blood Count 11.8 10^3/ul (3.5-10.8)
[2018-02-18 19:03] LABS: EGFR Non-African American 59.9 (>60)
[2018-02-18] MEDS ORDERED: Meclizine TAB* 12.5 MG PO ONE (19:04)
[2018-02-18 19:53] VITALS: BP 123/79
== END 2018-02-18 19:53 | disposition home or self-care (01) ==
LOC: ED 17:18
DX: R42 Dizziness and giddiness (principal); R00.0 Tachycardia, unspecified; I10 Essential (primary) hypertension; Z87.891 Personal history of nicotine dependence; Z87.440 Personal history of urinary (tract) infections; Z88.5 Allergy status to narcotic agent; Z88.6 Allergy status to analgesic agent; Z88.8 Allergy status to other drugs, medicaments and biological substances
CPT/HCPCS: 36415; 80053; 85025; 86140; 93005; 99282; A9270-GY

== ENCOUNTER 2018-02-20 21:43 | Emergency (ER) | payer MEDICARE, MEDICAID ==
--- NOTE | 2018-02-20 22:08 | ED ---
GI/ HPI - HPI Summary HPI Summary: This is yue Edwards documenting for attending Dr. Bob Metcalf This patient is a 72 year old M presenting to [facility] with a chief complaint of hematuria since 02/19/18. Endorses hematuria, flank pain, and suprapubic abd pain. Flynn catheter in place. PMHx kidney stones. He endorses similar sx in the past, but never this severe. - History of Current Complaint Chief Complaint: EDUrogenitalProblems Time Seen by Provider: 02/20/18 21:47 Stated Complaint: ABD PAIN Hx Obtained From: Patient Onset/Duration: Started Days Ago - 1, Still Present Severity: Mild Current Severity: Mild Pain Intensity: 3 Location of Pain: Suprapubic - Additional Pertinent History Primary Care Physician: JULIETTE - Allergy/Home Medications Allergies/Adverse Reactions: Allergies Allergy/AdvReac Type Severity Reaction Status Date / Time codeine Allergy Unknown Verified 01/26/18 07:26 Reaction Details ibuprofen Allergy Unknown Verified 01/26/18 07:26 Reaction Details metronidazole [From Flagyl] Allergy Unknown Verified 01/26/18 07:26 Reaction Details morphine Allergy Unknown Verified 01/26/18 07:26 Reaction Details rosuvastatin [From Crestor] Allergy Unknown Verified 01/26/18 07:26 Reaction Details PMH/Surg Hx/FS Hx/Imm Hx Endocrine/Hematology History: Reports: Hx Thyroid Disease Denies: Hx Diabetes Cardiovascular History: Reports: Hx Angina, 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, Hx Hypercholesterolemia, Hx Hypertension, Hx Peripheral Vascular Disease, Other Cardiovascular Problems/Disorders - CHRONIC TACHYCARDIA Denies: Hx Angioplasty, Hx Congestive Heart Failure, Hx Embolism, Hx Pacemaker/ICD Respiratory History: Reports: Other Respiratory Problems/Disorders - chronic cough Denies: Hx Asthma, Hx Chronic Obstructive Pulmonary Disease (COPD), Hx Lung Cancer, Hx Pleural Effusion, Hx Pulmonary Edema, Hx Pulmonary Embolism, Hx Seasonal Allergies, Hx Sleep Apnea GI History: Reports: Hx Gastroesophageal Reflux Disease, Hx Hiatal Hernia, Other GI Disorders Denies: Hx Irritable Bowel History: Reports: Hx Benign Prostatic Hyperplasia, Other Problems/ Disorders - [place] Denies: Hx Dialysis, Hx Kidney Infection, Hx Kidney Stones, Hx Renal Disease Musculoskeletal History: Reports: Hx Arthritis, Hx Back Problems Sensory History: Reports: Hx Contacts or Glasses, Hx Eye Injury Denies: Hx Cataracts, Hx Glaucoma, Hx Hearing Aid Opthamlomology History: Reports: Hx Contacts or Glasses, Hx Eye Injury Denies: Hx Cataracts, Hx Glaucoma Neurological History: Reports: Hx Developmental Delay, Hx Headaches, Hx Transient Ischemic Attacks (TIA), Other Neuro Impairments/Disorders - speech impediment Denies: Hx Migraine, Hx Seizures, Hx Spinal Cord Injury Psychiatric History: Reports: Hx Anxiety, Other Psychiatric Issues/Disorders Denies: Hx Depression, Hx Panic Disorder - Cancer History Cancer Type, Location and Year: Skin cancer 1999 - Surgical History Surgery Procedure, Year, and Place: None - Immunization History Date of Tetanus Vaccine: up to date Date of Influenza Vaccine: utd Infectious Disease History: No Infectious Disease History: Denies: Hx of Known/Suspected MRSA, Traveled Outside the [place] in Last 30 Days - Family History Known Family History: Positive: Cardiac Disease, Hypertension Negative: Diabetes - Social History Alcohol Use: None Hx Substance Use: No Substance Use Type: Reports: None Hx Tobacco Use: Yes Smoking Status (MU): Former Smoker Type: Cigarettes Have You Smoked in the Last Year: No Review of Systems Positive: Abdominal Pain Positive: flank pain, hematuria All Other Systems Reviewed And Are Negative: Yes Physical Exam - Summary Physical Exam Summary: VITAL SIGNS: Reviewed. GENERAL: Patient is a well-developed and nourished male who is lying comfortable in the stretcher. Patient is not in any acute respiratory distress. Flynn catheter in place with 100 ccs bloody urine in bag HEAD AND FACE: No signs of trauma. No ecchymosis, hematomas or skull depressions. No sinus tenderness. EYES: PERRLA, EOMI x 2, No injected conjunctiva, no nystagmus. EARS: Hearing grossly intact. Ear canals and tympanic membranes are within normal limits. MOUTH: Oropharynx within normal limits. NECK: Supple, trachea is midline, no adenopathy, no JVD, no carotid bruit, no c- spine tenderness, neck with full ROM. CHEST: Symmetric, no tenderness at palpation LUNGS: Clear to auscultation bilaterally. No wheezing or crackles. CVS: Regular rate and rhythm, S1 and S2 present, no murmurs or gallops appreciated. ABDOMEN: Soft, non-tender. No signs of distention. No rebound no guarding, and no masses palpated. Bowel sounds are normal. Bladder seems empty, Flynn catheter in place with 100 ccs bloody urine in bag. EXTREMITIES: FROM in all major joints, no edema, no cyanosis or clubbing. NEURO: Alert and oriented x 3. No acute neurological deficits. Speech is normal and follows commands. SKIN: Dry and warm Triage Information Reviewed: Yes Vital Signs On Initial Exam: Initial Vitals Temp Pulse Resp BP Pulse Ox 98.6 F 86 18 106/72 99 02/20/18 21:46 02/20/18 21:46 02/20/18 21:46 02/20/18 21:46 02/20/18 21:46 Vital Signs Reviewed: Yes Diagnostics - Vital Signs Vital Signs Temp Pulse Resp BP Pulse Ox 02/20/18 21:46 98.6 F 86 18 106/72 99 - Laboratory Result Diagrams: 02/20/18 22:18 02/20/18 22:18 Lab Statement: Any lab studies that have been ordered have been reviewed, and results considered in the medical decision making process. - CT CT ABD/Pelvis CT Interpretation Completed By: Radiologist - 1. Bilateral nonobstructing renal calculi. No obstructing calculi or additional findings to account for patient' s hematuria. 2. Right renal complex and simple renal cysts. 3. Large hiatal hernia. 4. Additional incidental findings as described. ED physician has reviewed this radiology report. GIGU Course/Dx - Course Assessment/Plan: This patient is a 72 year old M presenting to [facility] with a chief complaint of hematuria since 02/19/18. Endorses hematuria, flank pain, and suprapubic abd pain. Flynn catheter in place. PMHx kidney stones. He endorses similar sx in the past, but never this severe. Blood work and UA obtained. Pt has UTI pt has a culture done from the third which showed enterococcus faecalis which is sensitive to ampicillin already on Augmentin and he will be discharged home and continue his abx. Pt is agreeable with this plan. - Diagnoses Provider Diagnoses: Cystitis Discharge - Sign-Out/Discharge Documenting (check all that apply): Patient Departure - Discharge Plan Condition: Stable Disposition: HOME Patient Education Materials: Urinary Tract Infection in Men (ED) Referrals: Liam Patel MD [Primary Care Provider] - 2 Days Additional Instructions: Please continue your antibiotics as prescribed. RETURN TO THE EMERGENCY DEPARTMENT FOR CHANGING OR WORSENING SYMPTOMS Attestation Statement Scribe Attestation: This is yue Edwards documenting for attending Rupinder Rojas MD. User Type: Provider with Scribe Provider Attestation: The documentation recorded by the scribe accurately reflects the service I personally performed and the decisions made by me.
[2018-02-20 22:26] LABS: ABS Basophils 0.1 10^3/ul (0-0.2); ABS Eosinophils 0.3 10^3/ul (0-0.6); ABS Lymphocytes 1.8 10^3/ul (1.0-4.8); ABS Neutrophils 10.1 10^3/ul (1.5-7.7); ABS Nucleated RBC 0 10^3/ul; Hematocrit 43 % (42-52); Hemoglobin 14.8 g/dl (14.0-18.0); Lymphocyte % 13.4 % (25-47); Mean Corpuscular HGB Conc 34 g/dl (31-36); Mean Corpuscular Hemoglobin 31 pg (27-31); Mean Corpuscular Volume 91 fL (80-94); Mean Platelet Volume 6.3 um3 (7.4-10.4); Nucleated Red Blood Cells % 0; Platelet Count 267 10^3/ul (150-450); Red Blood Count 4.79 10^6/ul (4.00-5.40); Red Cell Distribution Width 14 % (10.5-15); White Blood Count 13.2 10^3/ul (3.5-10.8)
[2018-02-20 22:34] LABS: INR 1.55 (0.77-1.02)
[2018-02-20 22:42] LABS: EGFR Non-African American 40.9 (>60)
--- NOTE | 2018-02-21 00:04 | RAD ---
EXAM: CT Abdomen and Pelvis Without Intravenous Contrast CLINICAL HISTORY: 72 years old, male; Pain; Abdominal pain; Generalized; Additional info: Hematuria TECHNIQUE: Axial computed tomography images of the abdomen and pelvis without intravenous contrast. Coronal and sagittal reformatted images were created and reviewed. COMPARISON: A/P WO CT ABD/PEL W/O 2018-02-08 23:30 FINDINGS: Lung bases: Large hiatal hernia extends to the posterior left chest causing compressive atelectasis of the left lower lobe. Chronic right pleural effusion with calcified pleural plaques and improved volume loss of the right lower lobe. ABDOMEN: Liver: Normal. Normal size. No masses. Gallbladder and bile ducts: Normal. No radiopaque calculi. No ductal dilation. Pancreas: Normal. No ductal dilation. Spleen: Normal. No splenomegaly. Adrenals: Normal. No mass. Kidneys and ureters: Nonobstructing renal calculi seen bilaterally. Multiloculated right renal cyst with a single calcified wall. Additional simple renal cyst right lower pole. No pelvocaliectasis or obstructing renal calculi. Stomach and bowel: Intra-abdominal stomach is normal. Normal caliber small bowel. Distal colonic diverticula without adjacent inflammatory changes or associated wall thickening. No obstruction. PELVIS: Appendix: Normal caliber appendix without wall thickening or adjacent inflammation. Bladder: Urinary bladder collapsed around a Flynn catheter. No stones. Reproductive: Normal as visualized. ABDOMEN and PELVIS: Intraperitoneal space: Normal. No pneumoperitoneum. No ascities. Bones/joints: Chronic compression fracture of the L1. Remaining vertebral body heights are maintained. Several right-sided healed rib fractures. The spine demonstrates mild degenerative changes at multiple levels. No fractures. No suspicious bone lesions. Soft tissues: There is a fat-containing umbilical hernia. No stranding. Vasculature: The aorta demonstrates mild atherosclerotic calcification. No abdominal aortic aneurysm. Lymph nodes: Normal. No enlarged lymph nodes. IMPRESSION: 1. Bilateral nonobstructing renal calculi. No obstructing calculi or additional findings to account for patient's hematuria. 2. Right renal complex and simple renal cysts. 3. Large hiatal hernia. 4. Additional incidental findings as described. I have reviewed the report and images associated with report and agree with the findings.
[2018-02-21 01:15] LABS: Urine Appearance Cloudy; Urine Blood 3+ (Negative); Urine Ketones Negative (Negative); Urine Protein 2+(100 mg/dL) (Negative); Urine Red Blood Cell 3+(>10/hpf) (Absent); Urine Specific Gravity 1.015 (1.010-1.030); Urine Urobilinogen Negative (Negative); Urine White Blood Cell 3+(>20/hpf) (Absent)
[2018-02-21 01:17] LABS: Urine Color Red
[2018-02-21 03:09] VITALS: BP 106/84
== END 2018-02-21 03:08 | disposition home or self-care (01) ==
LOC: ED 21:43
DX: N30.90 Cystitis, unspecified without hematuria (principal); R10.9 Unspecified abdominal pain; R10.84 Generalized abdominal pain; R82.3 Hemoglobinuria; Z87.891 Personal history of nicotine dependence
CPT/HCPCS: 36415; 74176; 80053; 81003; 81015; 85025; 85610; 85730; 86140; 87086; 87106; 99284

== ENCOUNTER 2018-02-22 15:44 | Emergency (ER) | payer MEDICARE, MEDICAID ==
[2018-02-22 16:48] LABS: ABS Basophils 0.1 10^3/ul (0-0.2); ABS Eosinophils 0.4 10^3/ul (0-0.6); ABS Lymphocytes 2.9 10^3/ul (1.0-4.8); ABS Monocytes 0.8 10^3/ul (0-0.8); ABS Neutrophils 7.4 10^3/ul (1.5-7.7); ABS Nucleated RBC 0 10^3/ul; Eosinophil % 3.6 % (0-6); Hematocrit 41 % (42-52); Hemoglobin 13.6 g/dl (14.0-18.0); Lymphocyte % 24.9 % (25-47); Mean Corpuscular HGB Conc 33 g/dl (31-36); Mean Corpuscular Hemoglobin 31 pg (27-31); Mean Corpuscular Volume 91 fL (80-94); Mean Platelet Volume 6.5 um3 (7.4-10.4); Nucleated Red Blood Cells % 0.1; Platelet Count 246 10^3/ul (150-450); Red Blood Count 4.45 10^6/ul (4.00-5.40); Red Cell Distribution Width 14 % (10.5-15); White Blood Count 11.6 10^3/ul (3.5-10.8)
[2018-02-22 16:57] LABS: INR 1.03 (0.77-1.02)
[2018-02-22 17:14] LABS: EGFR Non-African American 44.2 (>60)
[2018-02-22 17:48] LABS: Urine Appearance Cloudy; Urine Color Red
[2018-02-22 18:01] LABS: Urine Blood 3+ (Negative); Urine Ketones Negative (Negative); Urine Protein 2+(100 mg/dL) (Negative); Urine Red Blood Cell 3+(>10/hpf) (Absent); Urine Specific Gravity 1.008 (1.010-1.030); Urine Urobilinogen Negative (Negative); Urine White Blood Cell 3+(>20/hpf) (Absent)
[2018-02-22] MEDS ORDERED: cefTRIAXone(*) 1 GM in NS 0.9% 50 ML* 50 ML IVPB ONE (18:17)
--- NOTE | 2018-02-22 18:44 | ED ---
GI/ HPI - HPI Summary HPI Summary: Patient presents again today with ongoing hematuria. He was seen 2 days ago with hematuria by Dr. Flores. No indicates he had a UTI diagnosed last week and he's been taking Augmentin which is appropriate treatment for his infection. He had an elevated white blood cell count and creatinine. Will recheck today. He takes her L toe and denies trauma however he is requesting we remove his catheter - question if patient has been tugging on catheter, possible causing irritation in this area. He was also found to have nonobstructing kidney stones at last visit on CT. He denies fevers, chills, nausea, vomiting, diarrhea. No leakage from catheter. He reports bladder fullness and pressure. Had catheter changed one month ago. Last time he was seen with gross hematuria was earlier in the month. He had a catheter flush and held his relative for couple days which seemed to alleviate the issue. He follows with Dr. Campbell for urinary retention. - History of Current Complaint Chief Complaint: EDUrogenitalProblems Time Seen by Provider: 02/22/18 15:45 Stated Complaint: BLOOD URINE Hx Obtained From: Patient Pain Intensity: 10 - Additional Pertinent History Primary Care Physician: [id number] - Allergy/Home Medications Allergies/Adverse Reactions: Allergies Allergy/AdvReac Type Severity Reaction Status Date / Time codeine Allergy Unknown Verified 02/22/18 15:49 Reaction Details ibuprofen Allergy Unknown Verified 02/22/18 15:49 Reaction Details metronidazole [From Flagyl] Allergy Unknown Verified 02/22/18 15:49 Reaction Details morphine Allergy Unknown Verified 02/22/18 15:49 Reaction Details rosuvastatin [From Crestor] Allergy Unknown Verified 02/22/18 15:49 Reaction Details PMH/Surg Hx/FS Hx/Imm Hx Previously Healthy: Yes Endocrine/Hematology History: Reports: Hx Anticoagulant Therapy, Hx Thyroid Disease Denies: Hx Diabetes Cardiovascular History: Reports: Hx Angina, 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, Hx Hypercholesterolemia, Hx Hypertension, Hx Peripheral Vascular Disease, Other Cardiovascular Problems/Disorders - CHRONIC TACHYCARDIA Denies: Hx Angioplasty, Hx Congestive Heart Failure, Hx Embolism, Hx Pacemaker/ICD Respiratory History: Reports: Other Respiratory Problems/Disorders - chronic cough Denies: Hx Asthma, Hx Chronic Obstructive Pulmonary Disease (COPD), Hx Lung Cancer, Hx Pleural Effusion, Hx Pulmonary Edema, Hx Pulmonary Embolism, Hx Seasonal Allergies, Hx Sleep Apnea GI History: Reports: Hx Gastroesophageal Reflux Disease, Hx Hiatal Hernia, Other GI Disorders Denies: Hx Irritable Bowel History: Reports: Hx Benign Prostatic Hyperplasia, Other Problems/ Disorders - [place] Denies: Hx Dialysis, Hx Kidney Infection, Hx Kidney Stones, Hx Renal Disease Musculoskeletal History: Reports: Hx Arthritis, Hx Back Problems Sensory History: Reports: Hx Contacts or Glasses, Hx Eye Injury Denies: Hx Cataracts, Hx Glaucoma, Hx Hearing Aid Opthamlomology History: Reports: Hx Contacts or Glasses, Hx Eye Injury Denies: Hx Cataracts, Hx Glaucoma Neurological History: Reports: Hx Developmental Delay, Hx Headaches, Hx Transient Ischemic Attacks (TIA), Other Neuro Impairments/Disorders - speech impediment Denies: Hx Migraine, Hx Seizures, Hx Spinal Cord Injury Psychiatric History: Reports: Hx Anxiety, Other Psychiatric Issues/Disorders Denies: Hx Depression, Hx Panic Disorder - Cancer History Cancer Type, Location and Year: Skin cancer 1999 - Surgical History Surgery Procedure, Year, and Place: None - Immunization History Date of Tetanus Vaccine: up to date Date of Influenza Vaccine: utd Infectious Disease History: No Infectious Disease History: Denies: Hx of Known/Suspected MRSA, Traveled Outside the [place] in Last 30 Days - Family History Known Family History: Positive: Cardiac Disease, Hypertension Negative: Diabetes - Social History Occupation: Retired Lives: At [employer] Alcohol Use: None Hx Substance Use: No Substance Use Type: Reports: None Hx Tobacco Use: Yes Smoking Status (MU): Former Smoker Type: Cigarettes Have You Smoked in the Last Year: No Review of Systems Constitutional: Negative Negative: Fever, Chills, Fatigue Cardiovascular: Negative Negative: Palpitations, Chest Pain Respiratory: Negative Negative: Shortness Of Breath, Cough Positive: Abdominal Pain. Negative: Vomiting, Diarrhea, Nausea Positive: see HPI Musculoskeletal: Negative Skin: Negative Neurological: Negative Positive: Anxious All Other Systems Reviewed And Are Negative: Yes Physical Exam Triage Information Reviewed: Yes Vital Signs On Initial Exam: Initial Vitals Temp Pulse Resp BP Pulse Ox 97.6 F 108 18 103/70 98 02/22/18 15:44 02/22/18 15:44 02/22/18 15:44 02/22/18 15:44 02/22/18 15:44 Vital Signs Reviewed: Yes Appearance: Positive: Well-Appearing - appears well kempt, No Pain Distress - concerned/anxious, Well-Nourished Skin: Positive: Warm, Skin Color Reflects Adequate Perfusion, Dry - generalized pallor Head/Face: Positive: Normal Head/Face Inspection Eyes: Positive: EOMI ENT: Positive: Hearing grossly normal, Pharynx normal - mucosa moist Respiratory/Lung Sounds: Positive: Clear to Auscultation, Breath Sounds Present Cardiovascular: Positive: Normal, RRR Abdomen Description: Positive: Soft, Other: - imld suprapubic TTP - no rebounding Bowel Sounds: Positive: Present Male Genital Exam: Positive: Normal Genitalia - no signs of trauma or edema of penile shaft or testicles - no leakage from catheter - piece of hair wrapped around tubing? Musculoskeletal: Positive: Strength/ROM Intact - moving limbs while lying in bed Neurological: Positive: Sensory/Motor Intact Psychiatric: Positive: Anxious Diagnostics - Vital Signs Vital Signs Temp Pulse Resp BP Pulse Ox 02/22/18 17:22 98 103/72 97 02/22/18 17:00 90 99 02/22/18 16:52 98 107/74 98 02/22/18 16:23 106/75 02/22/18 16:00 109 96 02/22/18 15:52 101 105/66 100 02/22/18 15:50 105 100 02/22/18 15:44 97.6 F 108 18 103/70 98 - Laboratory Lab Results: Lab Results 02/22/18 02/22/18 02/22/18 Range/Units 16:27 16:28 16:28 WBC 11.6 H (3.5-10.8) 10^3/ul RBC 4.45 (4.00-5.40) 10^6/ul Hgb 13.6 L (14.0-18.0) g/dl Hct 41 L (42-52) % MCV 91 (80-94) fL MCH 31 (27-31) pg MCHC 33 (31-36) g/dl RDW 14 (10.5-15) % Plt Count 246 (150-450) 10^3/ul MPV 6.5 L (7.4-10.4) um3 Neut % (Auto) 63.7 (38-83) % Lymph % (Auto) 24.9 L (25-47) % [place] % (Auto) 7.2 H (0-7) % Eos % (Auto) 3.6 (0-6) % Baso % (Auto) 0.6 (0-2) % Absolute Neuts (auto) 7.4 (1.5-7.7) 10^3/ul Absolute Lymphs (auto) 2.9 (1.0-4.8) 10^3/ul Absolute Monos (auto) 0.8 (0-0.8) 10^3/ul Absolute Eos (auto) 0.4 (0-0.6) 10^3/ul Absolute Basos (auto) 0.1 (0-0.2) 10^3/ul Absolute Nucleated RBC 0 10^3/ul Nucleated RBC % 0.1 INR (Anticoag Therapy) 1.03 H (0.77-1.02) APTT 28.0 (26.0-36.3) seconds Sodium (135-145) mmol/L Potassium (3.5-5.0) mmol/L Chloride (101-111) mmol/L Carbon Dioxide (22-32) mmol/L Anion Gap (2-11) mmol/L BUN (6-24) mg/dL Creatinine (0.67-1.17) mg/dL Est GFR ( Amer) (>60) Est GFR (Non-Af Amer) (>60) BUN/Creatinine Ratio (8-20) Glucose (70-100) mg/dL Lactic Acid 1.2 (0.5-2.0) mmol/L Calcium (8.6-10.3) mg/dL Total Bilirubin (0.2-1.0) mg/dL AST (13-39) U/L ALT (7-52) U/L Alkaline Phosphatase (34-104) U/L C-Reactive Protein (<8.01) mg/L Total Protein (6.4-8.9) g/dL Albumin (3.2-5.2) g/dL Globulin (2-4) g/dL Albumin/Globulin Ratio (1-3) Urine Color Urine Appearance Urine pH (5-9) Ur Specific [place] (1.010-1.030) Urine Protein (Negative) Urine Ketones (Negative) Urine Blood (Negative) Urine Nitrate (Negative) Urine Bilirubin (Negative) Urine Urobilinogen (Negative) Ur Leukocyte Esterase (Negative) Urine WBC (Auto) (Absent) Urine RBC (Auto) (Absent) Calcium Oxalate Crystal (Absent) Urine Bacteria (Absent) Hyaline Casts (Absent) Urine Yeast (Absent) Urine Glucose (Negative) Urine Ascorbic Acid 02/22/18 02/22/18 Range/Units 16:28 17:20 WBC (3.5-10.8) 10^3/ul RBC (4.00-5.40) 10^6/ul Hgb (14.0-18.0) g/dl Hct (42-52) % MCV (80-94) fL MCH (27-31) pg MCHC (31-36) g/dl RDW (10.5-15) % Plt Count (150-450) 10^3/ul MPV (7.4-10.4) um3 Neut % (Auto) (38-83) % Lymph % (Auto) (25-47) % [place] % (Auto) (0-7) % Eos % (Auto) (0-6) % Baso % (Auto) (0-2) % Absolute Neuts (auto) (1.5-7.7) 10^3/ul Absolute Lymphs (auto) (1.0-4.8) 10^3/ul Absolute Monos (auto) (0-0.8) 10^3/ul Absolute Eos (auto) (0-0.6) 10^3/ul Absolute Basos (auto) (0-0.2) 10^3/ul Absolute Nucleated RBC 10^3/ul Nucleated RBC % INR (Anticoag Therapy) (0.77-1.02) APTT (26.0-36.3) seconds Sodium 137 (135-145) mmol/L Potassium 4.2 (3.5-5.0) mmol/L Chloride 105 (101-111) mmol/L Carbon Dioxide 26 (22-32) mmol/L Anion Gap 6 (2-11) mmol/L BUN 21 (6-24) mg/dL Creatinine 1.56 H (0.67-1.17) mg/dL Est GFR ( Amer) 53.5 (>60) Est GFR (Non-Af Amer) 44.2 (>60) BUN/Creatinine Ratio 13.5 (8-20) Glucose 92 (70-100) mg/dL Lactic Acid (0.5-2.0) mmol/L Calcium 8.7 (8.6-10.3) mg/dL Total Bilirubin 0.40 (0.2-1.0) mg/dL AST 11 L (13-39) U/L ALT 11 (7-52) U/L Alkaline Phosphatase 145 H (34-104) U/L C-Reactive Protein 11.23 H (<8.01) mg/L Total Protein 6.0 L (6.4-8.9) g/dL Albumin 3.3 (3.2-5.2) g/dL Globulin 2.7 (2-4) g/dL Albumin/Globulin Ratio 1.2 (1-3) Urine Color Red A Urine Appearance Cloudy Urine pH 6.0 (5-9) Ur Specific [place] 1.008 L (1.010-1.030) Urine Protein 2+(100 mg/dl) A (Negative) Urine Ketones Negative (Negative) Urine Blood 3+ A (Negative) Urine Nitrate Negative (Negative) Urine Bilirubin Negative (Negative) Urine Urobilinogen Negative (Negative) Ur Leukocyte Esterase 3+ A (Negative) Urine WBC (Auto) 3+(>20/hpf) A (Absent) Urine RBC (Auto) 3+(>10/hpf) A (Absent) Calcium Oxalate Crystal Present A (Absent) Urine Bacteria 1+ A (Absent) Hyaline Casts Present A (Absent) Urine Yeast Present A (Absent) Urine Glucose Negative (Negative) Urine Ascorbic Acid Not Reportable Result Diagrams: 02/22/18 16:28 02/22/18 16:28 Lab Statement: Any lab studies that have been ordered have been reviewed, and results considered in the medical decision making process. GIGU Course/Dx - Course Course Of Treatment: Pt presents for gross hematuria and lower pelvic discomfort. Labs reveals his WBC and renal fxn are improving - H&H have slowly depleted. Vitals are stable (pt has chronic tachycardia). His bladder scan reveals 18mL of urine - does not appear to be blocked in tubing. Discussed w/ Yojana Russell PA-C who will take pt for sign out - pt in stable condition at time of sign out - will try catherter flush and consider holding anti-coag again if bleeding continues w/ close f/u w/ urology. May repeat H&H in 2 days to monitor blood loss as well. If worse in the meantime, return to ED - Diagnoses Provider Diagnoses: Gross hematuria Discharge - Sign-Out/Discharge Documenting (check all that apply): Sign-Out Patient Signing out patient TO: Ariella Russell - Discharge Plan Condition: Stable - Billing Disposition and Condition Condition: STABLE
--- NOTE | 2018-02-22 18:46 | ED ---
Progress - Progress Note Progress Note: mccullough was irrigated to clear. discussed with patient holding xarelto like did a previous time and he states the hematuria did not clear afterwards. he has an appt with primary Sunday. has not followed up with urology. gave dose of rocephin here to cover for uti vs contaminated. patient states that is still on an antibiotic so will wait for cultures. will have follow up with urology. just had CT done less than 2 days ago so will not repeat. Course/Dx - Course Course Of Treatment: Pt presents for gross hematuria and lower pelvic discomfort. Labs reveals his WBC and renal fxn are improving - H&H have slowly depleted. Vitals are stable (pt has chronic tachycardia). His bladder scan reveals 18mL of urine - does not appear to be blocked in tubing. Discussed w/ Yojana Russell PA-C who will take pt for sign out - pt in stable condition at time of sign out - will try catherter flush with improvement and consider holding anti-coag again if bleeding continues but patient states did not help so w/ close f/u w/ urology. patient has follow up with primary on sunday. If worse in the meantime, return to ED, - Diagnoses Provider Diagnoses: Gross hematuria Discharge - Sign-Out/Discharge Documenting (check all that apply): Receiving Sign-Out Receiving patient FROM: Debra Gramajo - Discharge Plan Condition: Stable Disposition: HOME Patient Education Materials: Hematuria (ED) Referrals: Liam Patel MD [Primary Care Provider] - Henry Campbell MD [Medical Doctor] - Additional Instructions: Follow up with urology on Sunday Follow up with primary as scheduled Continue antibiotic Return to ED if develop fever or any new or worsening symptoms - Billing Disposition and Condition Condition: STABLE Disposition: Home
[2018-02-22 19:08] VITALS: BP 115/95
--- NOTE | 2018-02-23 18:40 | PN ---
Progress Note - Progress Note Date of Service: 02/23/18 Note: patient urine culture grew fidencio albican 10-25,000. not significant culture so will not treat at this time.
== END 2018-02-22 19:05 | disposition home or self-care (01) ==
LOC: ED 15:44
DX: R31.0 Gross hematuria (principal); R33.9 Retention of urine, unspecified; Z87.442 Personal history of urinary calculi; Z88.5 Allergy status to narcotic agent; Z88.6 Allergy status to analgesic agent; Z88.8 Allergy status to other drugs, medicaments and biological substances
CPT/HCPCS: 36415; 80053; 81003; 81015; 83605; 85025; 85610; 85730; 86140; 87086; 87106; 96374; 99283; J0696

== ENCOUNTER 2019-02-17 16:06 | Emergency (ER) | payer MEDICARE, MEDICAID ==
[2019-02-17 16:35] LABS: Hematocrit 42 % (42-52); Hemoglobin 14.4 g/dL (14.0-18.0); Mean Corpuscular HGB Conc 34 g/dL (31-36); Mean Corpuscular Hemoglobin 33 pg (27-31); Mean Corpuscular Volume 96 fL (80-94); Mean Platelet Volume 5.6 fL (7.4-10.4); Platelet Count 223 10^3/uL (150-450); Red Blood Count 4.35 10^6 /uL (4.18-5.48); Red Cell Distribution Width 15 % (10-15); White Blood Count 10.4 10^3/uL (3.5-10.8)
--- NOTE | 2019-02-17 16:35 | ED ---
Shortness of Breath - HPI Summary HPI Summary: Pt is a 73 y/o M presenting to the ED with a chief complaint of shortness of breath initially onset 1 week ago that has gradually become worse. He reports SOB on exertion, weakness, bilateral leg pain, and non-productive cough. He states he usually moves fast, and he is moving relatively slowly. He is a resident of [facility]. - History of Current Complaint Chief Complaint: EDShortnessOfBreath Time Seen by Provider: 02/17/19 16:23 Hx Obtained From: Patient Onset/Duration: Gradual Onset, Lasting Days, Still Present Current Severity: Moderate Dyspnea At: Exertion Aggravating Factors: Movement Alleviating Factors: Nothing Associated Signs & Symptoms: Cough (Bloody Sputum) - Allergy/Home Medications Allergies/Adverse Reactions: Allergies Allergy/AdvReac Type Severity Reaction Status Date / Time codeine Allergy Unknown Verified 02/22/18 15:49 Reaction Details ibuprofen Allergy Unknown Verified 02/22/18 15:49 Reaction Details metronidazole [From Flagyl] Allergy Unknown Verified 02/22/18 15:49 Reaction Details morphine Allergy Unknown Verified 02/22/18 15:49 Reaction Details rosuvastatin [From Crestor] Allergy Unknown Verified 02/22/18 15:49 Reaction Details PMH/Surg Hx/FS Hx/Imm Hx Previously Healthy: Yes Endocrine/Hematology History: Reports: Hx Anticoagulant Therapy, Hx Thyroid Disease Denies: Hx Diabetes Cardiovascular History: Reports: Hx Angina, 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, Hx Hypercholesterolemia, Hx Hypertension, Hx Peripheral Vascular Disease, Other Cardiovascular Problems/Disorders - CHRONIC TACHYCARDIA Denies: Hx Angioplasty, Hx Congestive Heart Failure, Hx Embolism, Hx Pacemaker/ICD Respiratory History: Reports: Other Respiratory Problems/Disorders - chronic cough Denies: Hx Asthma, Hx Chronic Obstructive Pulmonary Disease (COPD), Hx Lung Cancer, Hx Pleural Effusion, Hx Pulmonary Edema, Hx Pulmonary Embolism, Hx Seasonal Allergies, Hx Sleep Apnea GI History: Reports: Hx Gastroesophageal Reflux Disease, Hx Hiatal Hernia, Other GI Disorders Denies: Hx Irritable Bowel History: Reports: Hx Benign Prostatic Hyperplasia, Other Problems/ Disorders - [place] Denies: Hx Dialysis, Hx Kidney Infection, Hx Kidney Stones, Hx Renal Disease Musculoskeletal History: Reports: Hx Arthritis, Hx Back Problems Sensory History: Reports: Hx Contacts or Glasses, Hx Eye Injury Denies: Hx Cataracts, Hx Glaucoma, Hx Hearing Aid Opthamlomology History: Reports: Hx Contacts or Glasses, Hx Eye Injury Denies: Hx Cataracts, Hx Glaucoma Neurological History: Reports: Hx Developmental Delay, Hx Headaches, Hx Transient Ischemic Attacks (TIA), Other Neuro Impairments/Disorders - speech impediment Denies: Hx Migraine, Hx Seizures, Hx Spinal Cord Injury Psychiatric History: Reports: Hx Anxiety, Other Psychiatric Issues/Disorders Denies: Hx Depression, Hx Panic Disorder - Cancer History Cancer Type, Location and Year: Skin cancer 1999 - Surgical History Surgery Procedure, Year, and Place: None - Immunization History Date of Tetanus Vaccine: up to date Date of Influenza Vaccine: utd Infectious Disease History: No Infectious Disease History: Denies: Hx of Known/Suspected MRSA, Traveled Outside the [place] in Last 30 Days - Family History Known Family History: Positive: Cardiac Disease, Hypertension Negative: Diabetes - Social History Alcohol Use: None Hx Substance Use: No Substance Use Type: Reports: None Hx Tobacco Use: Yes Smoking Status (MU): Former Smoker Type: Cigarettes Have You Smoked in the Last Year: No Review of Systems Positive: Other - decreased ability to walk Positive: Shortness Of Breath, Cough Positive: Myalgia - bilateral leg pain Positive: Weakness All Other Systems Reviewed And Are Negative: Yes Physical Exam - Summary Physical Exam Summary: GENERAL: Patient is a well-developed and nourished M who is lying comfortable in the stretcher. Patient is not in any acute respiratory distress. HEAD AND FACE: Normocephalic EYES: PERRLA, EOMI x 2. EARS: Hearing grossly intact. MOUTH: Oropharynx within normal limits. NECK: Supple, trachea is midline, no adenopathy, no JVD, no carotid bruit. CHEST: Symmetric, no tenderness at palpation LUNGS: Clear to auscultation bilaterally. No wheezing or crackles. CVS: Tachycardic S1 and S2 present, no murmurs or gallops appreciated. ABDOMEN: Soft, non-tender. Bowel sounds are normal. No abnormal abdominal pulsations. EXTREMITIES: Full ROM in all major joints, no edema, no cyanosis or clubbing. NEURO: Alert and oriented x 3. No acute neurological deficits. Speech is normal and follows commands. SKIN: Dry and warm Triage Information Reviewed: Yes Vital Signs On Initial Exam: Initial Vitals Temp Pulse Resp BP Pulse Ox 98.3 F 100 22 143/106 94 02/17/19 16:06 02/17/19 16:06 02/17/19 16:06 02/17/19 16:06 02/17/19 16:06 Vital Signs Reviewed: Yes Diagnostics - Vital Signs Vital Signs Temp Pulse Resp BP Pulse Ox 02/17/19 16:15 105 22 143/106 94 02/17/19 16:11 109 6 160/128 94 02/17/19 16:06 98.3 F 100 22 143/106 94 - Laboratory Result Diagrams: 02/17/19 16:29 02/17/19 16:29 Lab Statement: Any lab studies that have been ordered have been reviewed, and results considered in the medical decision making process. - Radiology CXR Radiology Interpretation Completed By: Radiologist Summary of Radiographic Findings: No acute intrathoracic disease. ED physician has reviewed this report. - EKG 1629 Cardiac Rate: Tachycardia - 106bpm EKG Rhythm: Sinus Tachycardia ST Segment: Non-Specific Ectopy: None Summary of EKG Findings: EKG at 1629 shows sinus tachycardia at 106bpm with minimal ST elevation diffusely, without reciprocal changes. There is no concern for STEMI. Course/Dx - Course Course Of Treatment: Pt is a 73 y/o M presenting to the ED with a chief complaint of shortness of breath initially onset 1 week ago that has gradually become worse. He reports SOB on exertion, weakness, bilateral leg pain, and non- productive cough. The pt's physical exam is nml aside from being tachycardic. EKG at 1629 shows sinus tachycardia at 106bpm with minimal ST elevation diffusely, without reciprocal changes. There is no concern for STEMI. CXR shows no evidence for acute intrathoracic disease. Pts lab results show MCV of 96, MCH of 33, and a D-Dimer of > 1050. The pt will be signed out to Dr. Rojas at 1900 pending CTA Chest/Thorax and US DVT. He is stable at shift change. - Diagnoses Provider Diagnoses: Shortness of breath Discharge - Sign-Out/Discharge Documenting (check all that apply): Sign-Out Patient Signing out patient TO: Rupinder Rojas - Discharge Plan Condition: Stable Referrals: Marilu Garcia DO [Primary Care Provider] - - Billing Disposition and Condition Condition: STABLE - Attestation Statements Document Initiated by Scribe: Yes Documenting Scribe: Beata De Souza Provider For Whom Scribe is Documenting (Include Credential): Marlen Hernandez MD. Scribe Attestation: IBeata, scribed for Marlen Hernandez MD. on 02/17/19 at 1853. Scribe Documentation Reviewed: Yes Provider Attestation: The documentation as recorded by the scribe, Beata De Souza accurately reflects the service I personally performed and the decisions made by me, Demetra Hernandez MD. Status of Scribe Document: Viewed
[2019-02-17 16:48] LABS: Activated Partial Thrombo Time 31.6 seconds (26.0-38.0); INR 0.97 (0.82-1.09)
[2019-02-17 16:53] LABS: Albumin 3.9 g/dL (3.2-5.2); Albumin/Globulin Ratio 1.4 (1-3); BUN/Creatinine Ratio 19.5 (8-20); Calcium 9.4 mg/dL (8.6-10.3); EGFR African American 112.1 (>60); EGFR Non-African American 92.6 (>60); Globulin 2.7 g/dL (2-4); Potassium 4.2 mmol/L (3.5-5.0); Total Bilirubin 0.4 mg/dL (0.2-1.0); Total Protein 6.6 g/dL (6.4-8.9)
[2019-02-17 16:54] LABS: Troponin I 0.01 ng/mL (<0.04)
[2019-02-17 17:14] LABS: ABS Eosinophils 0.1 10^3/ul (0-0.6); ABS Lymphocytes 2.7 10^3/ul (1.0-4.8); ABS Monocytes 0.9 10^3/ul (0-0.8); ABS Neutrophils 6.7 10^3/ul (1.5-7.7); Eosinophil % 0.8 %; Lymphocyte % 25.8 %; Nucleated Red Blood Cells % 0.1
[2019-02-17] MEDS ORDERED: Iohexol 350* (CONTRAST) 500 ML MDV IV ONE (17:25)
--- OUTSIDE RECORDS SUMMARY | 2019-02-17 17:28 | XMS REPORT | Continuity of Care Document ---
:1945 External Reference #:[id number] Author Name Emerald brooks Care Team Providers Name Role Phone Marilu Garcia DO Primary Care Physician Unavailable Payers Date Identification Numbers Payment Provider Subscriber Effective: 2000 Policy Number: [id number] Medicare Donna Whitfield Expires: 2018 PayID: [id number] [address] [facility] [address] Policy Number: [id number] Medicare Donna Whitfield PayID: [id number] [address] [place] [address] Policy Number: [id number] Medicaid Donna Whitfield PayID: [id number] [address] [place] [address] Effective: 2017 Group Name: [facility] Donna Whitfield [place] Expires: 2018 PayID: [id number] [address] [place] [address] Problems Active Problems Provider Date Tachycardia Annamaria Moreno M.D. Onset: 07/22/2012 Mixed hyperlipidemia Annamaria Moreno M.D. Onset: 07/22/2012 Benign essential hypertension Annamaria Moreno M.D. Onset: 07/22/2012 Palpitations Annamaria Moreno M.D. Onset: 07/22/2012 Dyspnea Annamaria Moreno M.D. Onset: 07/22/2012 Localized, primary osteoarthritis of Ted Núñez M.D. Onset: 01/27/2015 the shoulder region Achilles bursitis Sal Ramon MD Onset: 08/03/2017 Localized, primary osteoarthritis of Sal Ramon MD Onset: 08/03/2017 the ankle and/or foot Plantar fascial fibromatosis Sal Ramon MD Onset: 09/28/2017 Stress fracture of metatarsal bone Sal Ramon MD Onset: 09/28/2017 Strain of muscle(s) and tendon(s) of Fady Jara MD Onset: 11/27/2017 the rotator cuff of left shoulder, subsequent encounter Strain of muscle(s) and tendon(s) of Fady Jara MD Onset: 11/27/2017 the rotator cuff of right shoulder, subsequent encounter Strain of rotator cuff capsule Fady Jara MD Onset: 09/24/2018 Diaphragmatic hernia Ofelia Guillen NP Onset: 12/11/2018 Note: large Cough Ofelia Guillen NP Onset: 12/11/2018 Constipation Ofelia Guillen NP Onset: 12/11/2018 Family History Date Family Member(s) Observation Comments General Diabetes General Heart Disease : (age 78 Years) Father due to Liver Disease : (age 67 Years) Mother due to Stroke Mother due to MS () Siblings 1 First Brother Alive And Well Second Brother Alive And Well Social History Type Date Description Comments Sex Unknown Marital Status Single Lives With [facility] Occupation Retired ETOH Use Denies alcohol use Tobacco Use Start: Unknown End: Patient is a former quite years ago, Unknown smoker 1973, prior to that, off and on smoker for 10 years Recreational Drug Use Denies Drug Use Smoking Status Reviewed: 02/11/19 Patient is a former quite years ago, smoker 1973, prior to that, off and on smoker for 10 years Exercise Type/Frequency Exercises regularly Allergies, Adverse Reactions, Alerts Active Allergies Reaction Severity Comments Date Codeine h/a,nausea 11/03/2004 Welchol aches 03/24/2005 Ibuprofen 01/27/2015 Morphine 01/27/2015 Rosuvastatin Calcium 02/23/2017 Latex 02/23/2017 Rosuvastatin Calcium 02/23/2017 Medications Active Medications SIG Qnty Indications Ordering Date Provider Pantoprazole Sodium take as directed 30 30tabs Ofelia Guillen, 11/13/2018 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 minutes 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 Guaifenesin one to two tablets 30tabs Ofelia Guillen, 11/13/2018 200mg Tablets by mouth every 4 [employer] hours Carafate Take 1 gm by mouth 30tabs Emerald 07/12/2018 1gm Tablets with meals MD Fabian Buspirone HCL Take 20 mg by mouth Shantal 03/04/2018 10mg three times daily MI Pereira Tablets Losartan Potassium 1 by mouth every Unknown 25mg day Tablets Metoprolol Succinate 1 by mouth every Unknown ER day 25mg Tablets ER 24HR Benzonatate one by mouth three Unknown 200mg times daily as Capsules needed for cough Atorvastatin Calcium 1 by mouth every Unknown 40mg day Tablets Simethicone Extra one by mouth four Unknown Strength times a day as 125mg Capsules needed Albuterol Sulfate 1 application every Unknown 4 hours as needed (2.5mg/3ML) 0.083% Nebulizer Tylenol Extra Strength 1-2 tabs by mouth Unknown every 6 hours as 500mg Tablets needed Senexon-S one to two tablets Unknown 8.6-50mg as needed for Tablets constipation Pentoxifylline ER Unknown 400mg Tablets ER Gabapentin 1 by mouth three Unknown 300mg Capsules times a day Melatonin 1 cap at bedtime Unknown 5mg Capsules Ativan Take 0.5 mg (1/2 Unknown 1mg Tablets tab) by mouth twice daily. Miralax 17 gm every day Unknown [id number] Powder mixed w/ 8 oz water/juice Levothyroxine Sodium 1 by mouth every Unknown day 125mcg Tablets Cyclobenzaprine HCL 1 tablet by mouth Unknown 10mg bid prn Tablets Ondansetron HCL one by mouth every Unknown 4mg 8 hours as needed Tablets for nausea Tamsulosin HCL 1 by mouth daily Unknown 0.4mg Capsules Thioridazine HCL Take 50 mg (2 tabs) Unknown 25mg by mouth bid Tablets Multivitamin 1 by mouth every Unknown Tablets day Ferrous Sulfate 1 by mouth bid Unknown 325(65Fe) mg Tablets History Medications Pepcid ac Maximum Please take 30tabs Ofelia Guillen NP 08/15/2018 - Strength nightly 11/11/2018 20mg Tablets Potassium Chloride Take 2 tabs 30tabs I49.1 Sherrie Camejo, 11/09/2017 - ER daily for 3 days N.P. 01/07/2018 20Meq Tablets ER then 1 tab daily Furosemide 1 by mouth every 30tabs Sherrie Camejo, 11/09/2017 - 40mg day N.P. 09/18/2018 Tablets Cardizem 1 by mouth three 90tabs Qutaybeh S. 10/09/2017 - 30mg Tablets times a day Tea Moreno 11/08/2017 11/06/17 Hold ([facility]SM aware) Tramadol HCL 2 tablets every 60tabs M19.011 Fady Jara MD 02/23/2017 - 50mg 8 hours as 04/09/2017 Tablets needed Horizant 1 po qhs 30tabs Benny Rodriguez 01/25/2017 - 300mg Tea Peters 08/21/2017 Tablets ER Ondansetron HCL 1 by mouth three 90tabs Benny Rodriguez 12/11/2016 - 8mg times a day as Tea Peters 08/22/2017 Tablets needed nausea Ondansetron HCL 1 by mouth three 90tabs R11.0 Benny Rodriguez 10/13/2015 - 8mg times a day as Tea Peters 12/07/2016 Tablets needed nausea R10.9 Gabapentin 1 po qhs for 1 wk 60caps Benny Peters, 09/25/2013 - 300mg Capsules then 1 at 6PM and 1 M.D. 10/28/2013 at hs Dilaudid 1 tab po bid prn 10tabs Ted Núñez, 03/05/2013 - 2mg Tablets pain M.D. 08/20/2013 Ultram sig 1 to 2 tabs tid 60tabs Ted Núñez, 02/28/2013 - 50mg Tablets prn, take with 2 ES M.D. 03/05/2013 tylenol Percocet take 1-2 tabs po 60tabs Les Cunningham M.D. 01/10/2013 - 5-325mg Tablets tid prn pain 02/04/2013 Ibuprofen 1 po tid prn pain 90tabs Les Cunningham M.D. 01/03/2013 - 600mg Tablets and inflammation 08/20/2013 Rome take 1-2 tab po tid 30tabs Les Cunningham M.D. 01/03/2013 - 5-325mg Tablets prn pain 02/04/2013 Tramadol HCL ER take 1 po bid prn 40caps Les Cunningham M.D. 12/31/2012 - 150mg Caps pain 02/28/2013 ER 24HR Ropinirole HCL 3 tabs by mouth 270tabs Benny Peters, 11/08/2012 - 3mg Tablets three times a day M.D. 01/26/2015 Ropinirole HCL 1 tab by mouth 90tabs Salome Gresham, 08/19/2012 - 5mg Tablets three times a day M.D. 11/08/2012 as directed Ropinirole HCL 1 tab by mouth 90tabs Salome Gresham, 04/30/2012 - 5mg Tablets three times a day M.D. 07/19/2012 Zetia 1 po qd 30tabs Josh Patel 03/24/2005 - 10mg Tablets Tea Duvall 07/19/2012 Zetia 1 po qod 30tabs Josh Patel 01/02/2005 - 10mg Tablets Tea Duvall 03/24/2005 Welchol 6 po qpm with meals 270tabs Josh Patel 11/03/2004 - 625mg Tablets Tea Duvall 03/24/2005 Vitamins Multiple 1 PO qd 30caps Josh Patel 11/02/2004 - Caplets Tea Duvall 07/19/2012 Proventil as Directed Josh Patel 11/02/2004 - 90mcg/Dose Tea Duvall 07/19/2012 Aerosol Advair Diskus 1 PO bid Josh Patel 11/02/2004 - 500mcg;50mcg Tea Duvall 07/19/2012 Inhaler Zetia 1 po qd 90tabs Josh Patel 11/02/2004 - 10mg Tablets Tea Duvall 11/03/2004 Lescol XL 1 PO qd 30tabs Josh Patel 11/02/2004 - 80mg Tablets Tea Duvall 07/19/2012 Prilosec 1 PO qd 60caps Josh Patel 11/02/2004 - 20mg Capsules Tea Duvall 07/19/2012 Mellaril 2 PO bid 60tabs Josh Patel 11/02/2004 - 50mg Tablets Tea Duvall 12/07/2016 Antioxidant Formula 1 by mouth twice a Unknown - day 02/22/2017 Capsules Aspirin Ec Low Dose 1 by mouth every Unknown - 325mg day 06/17/[address] Ropinirole HCL 3 by mouth three Unknown - 3mg Tablets times daily 06/18/2018 Pentoxifylline ER take one Unknown - 400mg capsule/tablet 06/17/2018 Tablets ER daily by mouth Sucralfate 1 by mouth three Unknown - 1gm Tablets times a day 06/17/2018 Omeprazole 1 by mouth every Unknown - 40mg Capsules DR day 11/11/2018 Buspirone HCL 1 tablet three Unknown - 15mg Tablets times daily. 07/27/2018 Acetaminophen 1-2 tabs 3x a day Unknown - 500mg Tablets as needed 11/09/2017 Tramadol HCL 1-2 tablets every 6 Unknown - 50mg Tablets hours as needed 09/18/2018 Xarelto 1 by mouth every Unknown - 15mg Tablets day 06/17/2018 Doxycycline Monohydrate 2 by mouth daily Unknown - 06/17/2018 100mg Tablets Tamsulosin HCL Liam Patel, - 0.4mg MD 07/27/2018 Capsules Diltiazem HCL take one tablet as Unknown - 30mg Tablets needed for 06/17/2018 tachycardia Metoprolol Tartrate 1/2 tablet by mouth Unknown - 25mg twice a day Unknown Tablets Proscar 1 by mouth every at Unknown - 5mg Tablets bedtime Unknown Simethicone once a day as Unknown - 125mg Capsules needed 09/18/2018 Bisacodyl Laxative use daily as needed Unknown - 10mg 11/11/2018 Suppository Glycolax Unknown - 3350NF Powder 11/11/2018 Benzonatate one three times a Unknown - 200mg Capsules day as needed cough 12/10/2018 Carafate 1 po tid prn 30tabs Unknown - 1gm Tablets 07/22/2012 Nexium 1 po bid 90caps Unknown - 40mg Capsules DR 12/07/2016 Lisinopril 1 po qd 30tabs Unknown - 10mg Tablets 02/10/2019 Trental tid Unknown - 400mg Tablets ER 06/17/2018 125 mcg 1 po qd 30tabs Unknown - 137mcg Tablets 07/17/2017 Simvastatin 1 po qhs 90tabs Unknown - 40mg Tablets 07/22/2012 Ibuprofen 1 bid prn 180tabs Unknown - 400mg Tablets 11/09/2014 Prochlorperazine 1 q8h as needed 30tabs Unknown - Maleate 10/13/2015 10mg Tablets Requip 1 po tid 90tabs Unknown - 4mg Tablets 08/19/2012 Flexeril 1 po tid prn 90tabs Unknown - 10mg Tablets 12/01/2015 Crestor 1 po qd 90tabs Unknown - 5mg Tablets 12/07/2016 Compazine 10MG t.i.d Unknown - 10/28/2013 Celecoxib 400 mg daily Unknown - 200mg Capsules 01/26/2015 Celebrex 2 capsules daily Unknown - 200mg Capsules 05/26/2015 Compazine 1 every 6 hours as Unknown - 10mg Tablets needed nausea 12/01/2015 Requip 3 tabs by mouth 540tabs Eulogio Walker, - 3mg Tablets three times a day M.D. 08/21/2017 Carisoprodol Take 1 Tab 3 Times Unknown - 250mg Tablets A Day as Needed 02/22/2017 Ibuprofen as needed Unknown - 200mg Tablets 08/21/2017 Furosemide 1 by mouth every Unknown - 40mg Tablets day 11/08/2017 Famotidine 1 by mouth bid Unknown - 40mg Tablets 08/27/2017 Medications Administered in Office Medication SIG Qnty Indications Ordering Provider Date Triamcinolone (Kenalog) Fady Jara MD 12/26/2018 Injection Triamcinolone (Kenalog) Fady Jara MD 12/26/2018 Injection Depomedrol 40MG Ewelina Salvador M.D. 10/30/2018 Injection Depomedrol 40MG Ewelina Salvador M.D. 10/09/2018 Injection Depomedrol 40MG Ewelina Salvador M.D. 10/09/2018 Injection Triamcinolone (Kenalog) Fady Jara MD 09/24/2018 Injection Triamcinolone (Jordyalog) Fady Jara MD 09/24/2018 Injection Depomedrol 40MG Ewelina Salvador M.D. 06/20/2018 Injection Depomedrol 40MG Ewelina Salvador M.D. 06/20/2018 Injection Triamcinolone (Jordyalog) Fady Jara MD 06/18/2018 Injection Triamcinolone (Jordyalog) Fady Jara MD 06/18/2018 Injection Depomedrol 40MG Ewelina Salvador M.D. 01/03/2018 Injection Triamcinolone (Jordyalog) Fady Jara MD 12/27/2017 Injection Triamcinolone (Jordyalog) Fady Jara MD 12/27/2017 Injection Technetium TC 99M Nikitareg Gulea, 09/27/2017 Tetrofosmin, Per Unit Dose Up M.D. To 40 Millicuries Injection Triamcinolone (Jordyalog) Fady Jara MD 08/28/2017 Injection Triamcinolone (Jordyalog) Fady Jara MD 08/28/2017 Injection Triamcinolone (Jordyalog) Fady Jara MD 05/29/2017 Injection Triamcinolone (Kenalog) Fady Jara MD 05/29/2017 Injection Triamcinolone (Kenalog) Fady Jara MD 02/23/2017 Injection Triamcinolone (Kenalog) Fady Jara MD 02/23/2017 Injection Dexamethasone Sodium Arturo Posadas MD 12/26/2016 Phosphate, 1 MG Injection Dexamethasone Sodium Arturo Posadas MD 12/26/2016 Phosphate, 1 MG Injection Depomedrol 80MG Ted Núñez M.D. 01/27/2015 Injection Depomedrol 80MG Ted Núñez M.D. 04/10/2013 Injection Depomedrol 80MG Les Cunningham M.D. 12/26/2012 Injection Depomedrol 80MG Les Cunningham M.D. 12/26/2012 Injection Depomedrol 80MG Les Cunningham M.D. 08/09/2012 Injection Depomedrol 80MG Les Cunningham M.D. 03/19/2012 Injection Depomedrol 80MG Les Cunningham M.D. 03/19/2012 Injection Depomedrol 80MG Les Cunningham M.D. 11/23/2011 Injection Depomedrol 80MG Les Cunningham M.D. 09/14/2011 Injection Depomedrol 80MG Les Cunningham M.D. 09/14/2011 Injection Depomedrol 80MG Raman Conway M.D. 06/14/2011 Injection Depomedrol 80MG Raman Conway M.D. 06/14/2011 Injection Depomedrol 80MG Raman Conway M.D. 04/03/2011 Injection Vital Signs Date Vital Result Comment 02/11/2019 2:24pm Height 70 inches 5'10" Weight 200.00 lb Heart Rate 92 /min BP Systolic 152 mmHg BP Diastolic 98 mmHg BMI (Body Mass Index) 28.7 kg/m2 12/26/2018 10:09am Height 70 inches 5'10" Weight 187.00 lb BP Systolic 124 mmHg BP Diastolic 68 mmHg Respiratory Rate 20 /min Pain Level 8 BMI (Body Mass Index) 26.8 kg/m2 12/11/2018 10:45am Heart Rate 101 /min BP Systolic 125 mmHg BP Diastolic 85 mmHg O2 % BldC Oximetry 92 % 11/13/2018 10:32am Weight 187.38 lb Heart Rate 102 /min BP Systolic Sitting 96 mmHg BP Diastolic Sitting 73 mmHg O2 % BldC Oximetry 95 % 10/31/2018 4:26pm Weight 176.00 lb Heart Rate 110 /min BP Systolic 106 mmHg BP Diastolic 66 mmHg Body Temperature 98.2 F O2 % BldC Oximetry 96 % 10/30/2018 10:31am Height 70 inches 5'10" Weight 179.00 lb Heart Rate 108 /min BP Systolic 122 mmHg BP Diastolic 82 mmHg Body Temperature 97.7 F Pain Level 1 BMI (Body Mass Index) 25.7 kg/m2 10/09/2018 10:48am Height 70 inches 5'10" Weight 179.00 lb Heart Rate 120 /min BP Systolic 124 mmHg BP Diastolic 88 mmHg Respiratory Rate 20 /min Pain Level 8 BMI (Body Mass Index) 25.7 kg/m2 10/07/2018 2:45pm Height 70 inches 5'10" Weight 179.00 lb with clothes/shoes Heart Rate 100 /min Radial BP Systolic Sitting 120 mmHg Lue reg cuff BP Diastolic Sitting 70 mmHg Lue reg cuff BMI (Body Mass Index) 25.7 kg/m2 Ejection Fraction greater t% 09/08/2017 Echo 10/04/2018 9:39am Height 70 inches 5'10" Weight 171.00 lb Heart Rate 98 /min BP Systolic 125 mmHg BP Diastolic 71 mmHg Respiratory Rate 20 /min Body Temperature 98.3 F O2 % BldC Oximetry 96 % BMI (Body Mass Index) 24.5 kg/m2 09/25/2018 5:13pm Heart Rate 72 /min BP Systolic 104 mmHg BP Diastolic 68 mmHg Respiratory Rate 18 /min 09/24/2018 10:47am Height 68 inches 5'8" Weight 167.00 lb Heart Rate 86 /min BP Systolic 92 mmHg BP Diastolic 70 mmHg Body Temperature 97.5 F Pain Level 8 BMI (Body Mass Index) 25.4 kg/m2 09/18/2018 9:39am Height 68.0 inches 5'8" Weight 167.00 lb BP Systolic 118 mmHg BP Diastolic 60 mmHg Pain Level 0 numbness BMI (Body Mass Index) 25.4 kg/m2 07/18/2018 4:05pm Weight 181.06 lb Heart Rate 102 /min BP Systolic 148 mmHg BP Diastolic 78 mmHg Respiratory Rate 20 /min Body Temperature 97.6 F 06/20/2018 1:35pm Height 70 inches 5'10" Weight 185.00 lb Heart Rate 82 /min Respiratory Rate 17 /min Body Temperature 97.0 F Pain Level 8 BMI (Body Mass Index) 26.5 kg/m2 06/18/2018 1:17pm Height 70 inches 5'10" Weight 185.00 lb Heart Rate 83 /min Body Temperature 98.1 F Pain Level 10 O2 % BldC Oximetry 96 % BMI (Body Mass Index) 26.5 kg/m2 02/07/2018 10:02am Height 70 inches 5'10" Weight 177.00 lb Heart Rate 80 /min BP Systolic Sitting 124 mmHg BP Diastolic Sitting 82 mmHg BMI (Body Mass Index) 25.4 kg/m2 01/08/2018 11:29am Height 70 inches 5'10" Weight 170.00 lb BP Systolic 118 mmHg BP Diastolic 74 mmHg Respiratory Rate 20 /min Pain Level 9 BMI (Body Mass Index) 24.4 kg/m2 01/03/2018 8:55am Height 70 inches 5'10" Weight 170.00 lb BP Systolic 132 mmHg BP Diastolic 88 mmHg Respiratory Rate 18 /min Body Temperature 98.6 F Pain Level 9 BMI (Body Mass Index) 24.4 kg/m2 12/27/2017 1:00pm Height 70 inches 5'10" Weight 170.00 lb BP Systolic Sitting 122 mmHg BP Diastolic Sitting 60 mmHg Respiratory Rate 16 /min Body Temperature 98.0 F Pain Level 8 BMI (Body Mass Index) 24.4 kg/m2 11/27/2017 10:03am Height 70 inches 5'10" Weight 170.00 lb BP Systolic 126 mmHg BP Diastolic 68 mmHg Respiratory Rate 20 /min Pain Level 8 BMI (Body Mass Index) 24.4 kg/m2 11/09/2017 9:52am Height 70 inches 5'10" Weight 198.00 lb Heart Rate 95 /min BP Systolic Sitting 100 mmHg BP Diastolic Sitting 70 mmHg BP Systolic Standing 110 mmHg BP Diastolic Standing 80 mmHg Respiratory Rate 17 /min BMI (Body Mass Index) 28.4 kg/m2 Ejection Fraction 70% 10/05/2017 echo 10/16/2017 1:50pm Height 70 inches 5'10" Weight 202.00 lb BP Systolic 148 mmHg BP Diastolic 90 mmHg Respiratory Rate 18 /min Pain Level 4 BMI (Body Mass Index) 29.0 kg/m2 10/09/2017 12:54pm Height 70 inches 5'10" Weight 202.75 lb with shoes Heart Rate 116 /min BP Systolic Sitting 156 mmHg Lue reg cuff BP Diastolic Sitting 108 mmHg Lue reg cuff Respiratory Rate 18 /min BMI (Body Mass Index) 29.1 kg/m2 Ejection Fraction >70% date 10/05/17 ECHO 09/28/2017 9:45am Height 70 inches 5'10" Weight 170.00 lb BP Systolic 132 mmHg BP Diastolic 70 mmHg Respiratory Rate 18 /min Pain Level 8 BMI (Body Mass Index) 24.4 kg/m2 08/28/2017 9:39am Height 70 inches 5'10" Weight 170.00 lb BP Systolic 122 mmHg BP Diastolic 70 mmHg Respiratory Rate 20 /min Pain Level 4 BMI (Body Mass Index) 24.4 kg/m2 08/22/2017 2:00pm Height 70 inches 5'10" Weight 205.38 lb Heart Rate 114 /min BP Systolic Sitting 120 mmHg LA, reg cuff BP Diastolic Sitting 84 mmHg LA, reg cuff BMI (Body Mass Index) 29.5 kg/m2 Ejection Fraction 60%-65% echo 09/27/16 08/03/2017 11:11am Height 70 inches 5'10" Weight 170.00 lb Heart Rate 78 /min Respiratory Rate 17 /min Pain Level 10 BMI (Body Mass Index) 24.4 kg/m2 05/29/2017 9:37am Height 70 inches 5'10" Weight 170.00 lb Heart Rate 70 /min Respiratory Rate 16 /min Body Temperature 97.9 F Pain Level 4 BMI (Body Mass Index) 24.4 kg/m2 04/10/2017 12:56pm Height 70 inches 5'10" Weight 170.00 lb Heart Rate 121 /min Respiratory Rate 15 /min Body Temperature 98.0 F Pain Level 8 BMI (Body Mass Index) 24.4 kg/m2 02/23/2017 8:46am Height 70 inches 5'10" Weight 170.00 lb Heart Rate 92 /min BP Systolic 134 mmHg BP Diastolic 90 mmHg Body Temperature 97.6 F BMI (Body Mass Index) 24.4 kg/m2 12/26/2016 1:01pm Height 70 inches 5'10" Weight 151.00 lb Heart Rate 96 /min BP Systolic 132 mmHg BP Diastolic 86 mmHg BMI (Body Mass Index) 21.7 kg/m2 12/11/2016 2:03pm Height 72 inches 6'0" Weight 157.25 lb Heart Rate 92 /min BP Systolic Sitting 120 mmHg BP Diastolic Sitting 66 mmHg Respiratory Rate 14 /min BMI (Body Mass Index) 21.3 kg/m2 09/14/2015 11:41am Height 72 inches 6'0" Heart Rate 88 /min BP Systolic Sitting 148 mmHg BP Diastolic Sitting 84 mmHg Respiratory Rate 16 /min 05/27/2015 10:06am Height 72 inches 6'0" Weight 193.00 lb BMI (Body Mass Index) 26.2 kg/m2 01/27/2015 10:21am Height 72 inches 6'0" Weight 193.00 lb Heart Rate 131 /min BP Systolic Sitting 113 mmHg BP Diastolic Sitting 86 mmHg Pain Level 8 BMI (Body Mass Index) 26.2 kg/m2 11/10/2014 10:52am Height 72 inches 6'0" Weight 193.00 lb Heart Rate 76 /min BP Systolic Sitting 138 mmHg BP Diastolic Sitting 80 mmHg Respiratory Rate 17 /min BMI (Body Mass Index) 26.2 kg/m2 10/28/2013 11:51am Height 72 inches 6'0" Weight 193.00 lb Heart Rate 72 /min BP Systolic Sitting 120 mmHg BP Diastolic Sitting 120 mmHg Respiratory Rate 16 /min BMI (Body Mass Index) 26.2 kg/m2 08/20/2013 9:33am Heart Rate 120 /min BP Systolic 124 mmHg BP Diastolic 78 mmHg 08/21/2012 10:46am Height 72 inches 6'0" Weight 193.00 lb Heart Rate 120 /min BP Systolic Sitting 136 mmHg BP Diastolic Sitting 98 mmHg Respiratory Rate 20 /min BMI (Body Mass Index) 26.2 kg/m2 07/22/2012 9:01am Height 72 inches 6'0" Weight 190.00 lb Heart Rate 120 /min BP Systolic Sitting 142 mmHg BP Diastolic Sitting 88 mmHg Respiratory Rate 20 /min BMI (Body Mass Index) 25.8 kg/m2 11/03/2004 9:59am Height 72 inches 6'0" Weight 216.00 lb Heart Rate 97 /min BP Systolic Sitting 130 mmHg R 120/70 L BP Diastolic Sitting 80 mmHg R 120/70 L BP Systolic Standing 130 mmHg R BP Diastolic Standing 70 mmHg R O2 % BldC Oximetry 97 % BMI (Body Mass Index) 29.3 kg/m2 Results Test Date Facility Test Result H/L Range Note CBC No Diff 11/15/2018 [facility] White Blood 11.2 10^3/uL High 3.5-10.[address] [place] [address] [phone] Red Blood Count 4.34 10^6/uL Normal 4.18-5.48 Hemoglobin 14.1 g/dL Normal 14.0-18.0 Hematocrit 41 % Low 42-52 Mean Corpuscular Volume 95 fL High 80-94 Mean Corpuscular Hemoglobin 32 pg High 27-31 Mean Corpuscular HGB Conc 34 g/dL Normal 31-36 Red Cell Distribution Width 15 % Normal 10.5-15 Platelet Count 214 10^3/uL Normal 150-450 Mean Platelet Volume 6.3 fL Low 7.4-10.4 Comp Metabolic 11/15/2018 [facility] Sodium 135 mmol/L Normal 135-145 Panel [address] [place] [address] [phone] Potassium 4.1 mmol/L Normal 3.5-5.0 Chloride 99 mmol/L Low 101-111 Co2 Carbon Dioxide 29 mmol/L Normal 22-32 Anion Gap 7 mmol/L Normal 2-11 Glucose 91 mg/dL Normal 70-100 Blood Urea Nitrogen 19 mg/dL Normal 6-24 Creatinine 0.84 mg/dL Normal 0.67-1.17 BUN/Creatinine Ratio 22.6 High 8-20 Calcium 9.5 mg/dL Normal 8.6-10.3 Total Protein 6.2 g/dL Low 6.4-8.9 Albumin 4.0 g/dL Normal 3.2-5.2 Globulin 2.2 g/dL Normal 2-4 Albumin/Globulin Ratio 1.8 Normal 1-3 Total Bilirubin 0.30 mg/dL Normal 0.2-1.0 Alkaline Phosphatase 83 U/L Normal 34-104 Alt 19 U/L Normal 7-52 Ast 13 U/L Normal 13-39 Egfr Non- 90.3 >60 Egfr 109.3 >60 2 Lipid Profile 11/15/2018 [facility] Triglycerides 353 mg/dL 3 (Trig/Chol/HDL) [address] [place] [address] [phone] Cholesterol 272 mg/dL 4 HDL Cholesterol 43.8 mg/dL 5 LDL Cholesterol 158 mg/dL 6 Iron & Iron Binding 11/15/2018 [facility] Iron 80 g/dL Normal 50-212 Capacity [address] [place] [address] [phone] Unsaturated Iron Binding < 332 g/dL Total Iron Binding Capacity 347 g/dL Normal 250-450 Transferrin 248 mg/dL Normal 203-362 % Iron Saturation 23 % Normal 15-55 Urine Culture And 08/07/2018 [facility] Urine SEE RESULT 7 , [address] [place] [address] [phone] Urine Culture And 08/07/2018 [facility] Urine SEE RESULT 9 , [address] [address] [phone] Urine Culture And 08/03/2018 [facility] Urine SEE RESULT [address] [place] [address] [phone] Stool Occult 07/17/2018 [facility] Stool Occult SEE RESULT 12 Blood, Screen [address] Blood, [place] [address] Screen [phone] Comp Metabolic 07/15/2018 [facility] Sodium 125 mmol/L Low 135 - [address] [place] [address] [phone] Potassium 5.2 mmol/L High 3.5-5.0 Chloride 93 mmol/L Low 101-111 Co2 Carbon Dioxide 24 mmol/L Normal 22-32 Anion Gap 8 mmol/L Normal 2-11 Glucose 97 mg/dL Normal 70-100 Blood Urea Nitrogen 13 mg/dL Normal 6-24 Creatinine 0.73 mg/dL Normal 0.67-1.17 BUN/Creatinine Ratio 17.8 Normal 8-20 Calcium 9.0 mg/dL Normal 8.6-10.3 Total Protein 6.0 g/dL Low 6.4-8.9 Albumin 3.9 g/dL Normal 3.2-5.2 Globulin 2.1 g/dL Normal 2-4 Albumin/Globulin Ratio 1.9 Normal 1-3 Total Bilirubin 0.40 mg/dL Normal 0.2-1.0 Alkaline Phosphatase 88 U/L Normal 34-104 Alt 19 U/L Normal 7-52 Ast 13 U/L Normal 13-39 Egfr Non- 106.2 >60 Egfr 128.5 >60 14 CBC Auto 07/15/2018 [facility] White Blood 11.1 10^3/uL High 3.5-10.[address] [place], [place] [id number] [phone] Red Blood Count 4.59 10^6/uL Normal 4.00-5.40 Hemoglobin 14.1 g/dL Normal 14.0-18.0 Hematocrit 42 % Normal 42-52 Mean Corpuscular Volume 92 fL Normal 80-94 Mean Corpuscular Hemoglobin 31 pg Normal 27-31 Mean Corpuscular HGB Conc 33 g/dL Normal 31-36 Red Cell Distribution Width 13 % Normal 10.5-15 Platelet Count 209 10^3/uL Normal 150-450 Mean Platelet Volume 5.9 fL Low 7.4-10.4 Abs Neutrophils 7.6 10^3/uL Normal 1.5-7.7 Abs Lymphocytes 2.5 10^3/uL Normal 1.0-4.8 Abs Monocytes 0.7 10^3/uL Normal 0-0.8 Abs Eosinophils 0.2 10^3/uL Normal 0-0.6 Abs Basophils 0 10^3/uL Normal 0-0.2 Abs Nucleated RBC 0 10^3/uL Granulocyte % 68.5 % Lymphocyte % 22.8 % Monocyte % 6.8 % Eosinophil % 1.6 % Basophil % 0.3 % Nucleated Red Blood Cells % 0.1 Laboratory test 07/15/2018 [facility] Amylase 49 U/L Normal 29 -103 15 finding [address] [place] [address] [phone] TSH (Thyroid Stim Horm) 1.19 mcIU/mL Normal 0.34-5.60 16 Basic Metabolic 11/20/2017 [facility] Sodium 138 mmol/L Low 139-145 17 Panel [address] [place] [address] [phone] Potassium 4.5 mmol/L Normal 3.5-5.0 Chloride 102 mmol/L Normal 101-111 Co2 Carbon Dioxide 29 mmol/L Normal 22-32 Anion Gap 7 mmol/L Normal 2-11 Glucose 131 mg/dL High 70-100 Blood Urea Nitrogen 13 mg/dL Normal 6-24 Creatinine 0.93 mg/dL Normal 0.67-1.17 BUN/Creatinine Ratio 14.0 Normal 8-20 Calcium 9.3 mg/dL Normal 8.6-10.3 Egfr Non- 80.6 >60 Egfr 103.6 >60 18 Laboratory test 11/20/2017 [facility] Magnesium 1.9 mg/dL Normal 1.9-2.7 19 finding [address] [place], [place] [id number] [phone] Laboratory test 11/09/2017 [facility] Magnesium <pending> finding [address] [place] [address] [phone] 1 [facility] [address], Room Number 241 [id number] 2 Because ethnic data is not always [...] 5 Kidney failure <15 (or dialysis) 3 Desirable: <150 Borderline High: 150-199 High: 200-499 Very High: >500 4 Desirable: <200 Borderline High: 200-239 High: >239 5 Low: <40 Desirable: 40-60 High: >60 6 Desirable: <100 Near Optimal: 100-129 Borderline High: 130-159 High: 160-189 Very High: >189 7 [id number] 8 SEE RESULT BELOW Name: DONNA WHITFIELD : [address]: Marilu Garcia DO Acct: [id number] Unit: [id number] AGE: 72 Location: [facility] Re08/07/18 SEX: M Status: REG REF SPEC: [id number] SEAN: 08/07/[address] [facility] [address]: Marilu Garcia DO REQ: [id number] RECD: 08/07/18 STATUS: MELISSA ALEMAN DR: Olinda Campos _ SOURCE: URINE SPDESC: ORDERED: Urine Culture COMMENTS: [id number] QUERIES: Urine Source: Random Procedure Result Reported Site Urine Culture Final 08/08/181226 ML No Growth (<1,000 CFU/mL) * ML - Main Lab . END OF REPORT DEPARTMENT OF PATHOLOGY, [address] [place] [id number] Philip Stone M.D. Director [facility] # [id number] 10 SEE RESULT BELOW Name: DONNA WHITFIELD : [address]: Marilu Garcia DO Acct: [id number] Unit: [id number] AGE: 72 Location: [facility] Re08/07/18 SEX: M Status: REG REF SPEC: [id number] SEAN: 08/07/[address] [facility] [address]: Marilu Garcia DO REQ: [id number] RECD: 08/07/18 STATUS: MELISSA ALEMAN DR: Olinda Campos _ SOURCE: URINE SPDESC: ORDERED: Urine Culture COMMENTS: [id number] QUERIES: Urine Source: Random Procedure Result Reported Site Urine Culture Final 08/08/18- 0953 ML No Growth (<1,000 CFU/mL) * ML - [facility] . END OF REPORT DEPARTMENT OF PATHOLOGY, [address] [place] [address] Philip Stone M.D. Director [facility] # [id number] 11 SEE RESULT BELOW Name: DONNA WHITFIELD : [address]: Marilu Garcia DO Acct: [id number] Unit: [id number] AGE: 72 Location: [facility] Re08/03/18 SEX: M Status: REG REF SPEC: [id number] SEAN: 08/03/18-[address] [facility] [address]: Marilu Garcia DO REQ: [id number] RECD: 08/03/18 STATUS: MELISSA ALEMAN DR: Olinda Campos _ SOURCE: URINE SPDESC: ORDERED: Urine Culture QUERIES: Urine Source: Random Procedure Result Reported Site Urine Culture Final 08/04/18- 1600 ML No Growth (<1,000 CFU/mL) * ML - Main Lab . END OF REPORT DEPARTMENT OF PATHOLOGY, [address] [place] [address] Philip Stone M.D. Director [facility] # [id number] 12 SEE RESULT BELOW Name: DONNA WHITFIELD : [address]: Marilu Garcia DO Acct: [id number] Unit: [id number] AGE: 72 Location: [facility] Re07/17/18 SEX: M Status: REG REF SPEC: [id number] SEAN: 07/17/[address]: Marilu Garcia DO REQ: [id number] RECD: 07/17/18 STATUS: COMP _ SOURCE: STOOL SPDESC: ORDERED: Occult Bl, Scn Procedure Result Reported Site Stool Occult Blood (1) Final 07/18/18- 1416 ML Stool Occult Blood Negative * - [facility] . END OF REPORT DEPARTMENT OF PATHOLOGY, [address] [place] [address] Philip Stone M.D. Director [facility] # [id number] 13 [facility] [address], Room Number 241 [id number] 14 Because ethnic data is not always readily [...] 15-29 5 Kidney failure <15 (or dialysis) 15 [facility] [address], Room Number 241 [id number] 16 [facility] Unit [address], Room Number 241 [id number] 17 [id number] 18 Because ethnic data is not always readily [...] 15-29 5 Kidney failure <15 (or dialysis) 19 [id number] Procedures Date Code Description Status 12/26/201868909 Inject/Drain Joint/Bursa Major W/O US Completed 11/06/2018 67034 ECHO Transthoracic, Real-Time 2D With Doppler And Color Completed Flow 11/06/2018 25301 ECHO Transthoracic, Real-Time 2D With Doppler And Color Completed Flow 10/31/2018 72368 Holter Monitor Review (24 hr) review & interp only Completed 10/30/2018 Inject/Drain Joint/Bursa Small W/O US Completed 10/28/2018 73119 ECG Monitor/Recording W/Visual Superimposition Scanning Completed 10/28/2018 37363 ECG Monitor/Recording W/Visual Superimposition Scanning Completed 10/09/2018 Injection, Carpal Tunnel Completed 10/07/2018 81839 EKG Tracing & Interpretation Completed 09/24/201872110 Inject/Drain Joint/Bursa Major W/O US Completed 06/20/2018 73765 Inject/Drain Joint/Bursa Small W/O US Completed 06/18/2018 03903 Inject/Drain Joint/Bursa Major W/O US Completed 01/03/2018 43081 Inject/Drain Joint/Bursa Small W/O US Completed 12/27/2017 14215 Inject/Drain Joint/Bursa Major W/O US Completed 11/29/2017 18597 Removal Devitalization Tissue Wound Less Than Equal 20 Completed Square CM 11/08/2017 62555 Holter Monitor Review (24 hr)dr gerber & russel only Completed 11/06/2017 60455 ECG Monitor/Recording W/Visual Superimposition Scanning Completed 10/16/2017 43816331 Colonoscopy Completed 10/05/2017 28467 ECHO Transthoracic, Real-Time 2D With Doppler And Color Completed Flow 10/05/2017 48202 ECHO Transthoracic, Real-Time 2D With Doppler And Color Completed Flow 09/20/2017 03382 Holter Monitor Review (24 hr)dr gerber & russel only Completed 09/19/2017 76725 ECG Monitor/Recording W/Visual Superimposition Scanning Completed 08/28/201771740 Inject/Drain Joint/Bursa Major W/O US Completed 08/22/2017 74637 EKG Tracing & Interpretation Completed 05/29/2017 06111 Inject/Drain Joint/Bursa Major W/O US Completed 02/23/201712589 Inject/Drain Joint/Bursa Major W/O US Completed 01/05/2017 87740 EKG, Interpretation Only Completed 12/26/2016 58797 Inject Tendon Sheath Or Ligament Aponeurosis Eg Plantar Completed Fascia 09/27/2016 40161 ECHO Transthoracic, Real-Time 2D With Doppler And Color Completed Flow 03/08/2016 31030 ECHO Transthorasic Realtime 2D W Doppler & Color Flow Completed Hosp 03/08/2016 49566 EKG, Interpretation Only Completed 01/27/201564189 Inject/Drain Joint/Bursa Major W/O US Completed 04/10/201356111 Inject/Drain Joint/Bursa Major W/O US Completed 02/28/2013 07024 Rad Shoulder Comp, Min. 2 Views Completed 12/26/201243077 Inject/Drain Joint/Bursa Major W/O US Completed 12/26/201229790 Inject/Drain Joint/Bursa Major W/O US Completed 08/13/2012 26628 Holter Monitoring 24 HR New Completed 08/09/201234106 Inject/Drain Joint/Bursa Major W/O US Completed 07/31/2012 04232 ECHO Stress Test Incl Perf Contiuous ekg Monitoring Completed W/Phys Superv 07/31/2012 69764 ECHO Stress Test Incl Perf Contiuous ekg Monitoring Completed W/Phys Superv 07/22/2012 94276 EKG Tracing & Interpretation Completed 06/18/2012 55984 ECHO Transthoracic, Real-Time 2D With Doppler And Color Completed Flow 03/25/2012 50277 Rad Exam; Hand Limited Completed 03/25/2012 70394 Rad Exam; Hand Limited Completed 03/19/201294906 Inject/Drain Joint/Bursa Major W/O US Completed 03/19/201207269 Inject/Drain Joint/Bursa Major W/O US Completed 11/23/201163837 Inject/Drain Joint/Bursa Major W/O US Completed 09/14/201126723 Inject/Drain Joint/Bursa Major W/O US Completed 09/14/201111740 Inject/Drain Joint/Bursa Major W/O US Completed 06/14/201194971 Inject/Drain Joint/Bursa Major W/O US Completed 06/14/201175760 Inject/Drain Joint/Bursa Major W/O US Completed 04/03/2011 31453 Rad Shoulder Comp, Min. 2 Views Completed 04/03/2011 11750 Rad Shoulder Comp, Min. 2 Views Completed 04/03/201185688 Inject/Drain Joint/Bursa Intermediate W/O US Completed 02/20/2011 37423752 Colonoscopy Completed 11/03/2004 76328 EKG Tracing & Interpretation Completed Encounters Type Date Location Provider Dx Diagnosis Office Visit 01/30/2019 [facility] Marilu Garcia K44.9 Diaphragmatic hernia 10:15a D.O. without obstruction or gangrene K59.00 Constipation, unspecified R11.0 Nausea R00.0 Tachycardia, unspecified I10 Essential (primary) hypertension K21.9 Gastro-esophageal reflux disease without esophagitis F41.9 Anxiety disorder, unspecified N40.1 Benign prostatic hyperplasia with lower urinary tract symp Office Visit 12/11/2018 [facility] De Queen K44.9 Diaphragmatic 10:30a Guillen, ENGINEERING PROGRAMMER hernia without obstruction or gangrene R05 Cough K59.00 Constipation, unspecified Office Visit 11/13/2018 [facility] Ofelia K44.9 Diaphragmatic 10:30a Guillen, ENGINEERING PROGRAMMER hernia without obstruction or gangrene R10.13 Epigastric pain R11.0 Nausea Z79.899 Other exterminator (current) drug therapy Office Visit 10/31/2018 10:15a [facility] Randy Thrasher, R00.0 Tachycardia, [place] unspecified R05 Cough Office Visit 10/09/2018 10:45a Orthopedic Ewelina Salvador G56.03 Carpal tunnel Services Of M.D. syndrome, C.M.A. bilateral upper limbs G56.23 Lesion of ulnar nerve, bilateral upper limbs Office Visit 10/07/2018 3:00p [facility] Qutaybeh S. I10 Essential Tea Moreno (primary) hypertension R94.31 Abnormal electrocardiogram [ECG] [EKG] R00.0 Tachycardia, unspecified I71.9 Aortic aneurysm of unspecified site, without rupture Office Visit 10/04/2018 [facility] Ofelia K44.9 Diaphragmatic 10:00a Guillen, ENGINEERING PROGRAMMER hernia without obstruction or gangrene Office Visit 09/25/2018 [facility] Marilu G56.03 Carpal tunnel 11:15a Jose, D.O. syndrome, bilateral upper limbs G57.93 Unspecified mononeuropathy of bilateral lower limbs K21.9 Gastro-esophageal reflux disease without esophagitis F41.9 Anxiety disorder, unspecified N40.1 Benign prostatic hyperplasia with lower urinary tract symp Office Visit 09/18/2018 10:00a Orthopedic Ewelina Salvador, G56.03 Carpal tunnel Services Of M.D. syndrome, C.M.A. bilateral upper limbs G56.02 Carpal tunnel syndrome, left upper limb G56.21 Lesion of ulnar nerve, right upper limb G56.22 Lesion of ulnar nerve, left upper limb Office Visit 09/04/2018 8:15a [facility] Giselle Green R60.0 Localized edema MI Christopher Z78.9 Other specified health status Office Visit 08/15/2018 [facility] Ofelia R10.9 Unspecified 1:00p MI Guillen abdominal pain R14.0 Abdominal distension (gaseous) K44.9 Diaphragmatic hernia without obstruction or gangrene K21.9 Gastro-esophageal reflux disease without esophagitis Office Visit 08/12/2018 1:15p [facility] Shantal Pereira, F41.9 Anxiety disorder, ENGINEERING PROGRAMMER unspecified W19.xxxA Unspecified fall, initial encounter Office Visit 08/07/2018 9:15a [facility] Giselle Green R07.9 Chest pain, MI Christopher unspecified J18.9 Pneumonia, unspecified organism R33.8 Other retention of urine N40.1 Benign prostatic hyperplasia with lower urinary tract symp Z78.9 Other specified health status Office Visit 08/05/2018 9:30a [facility] Shantal Pereira, F41.9 Anxiety disorder, ENGINEERING PROGRAMMER unspecified R33.8 Other retention of urine N40.1 Benign prostatic hyperplasia with lower urinary tract symp R10.9 Unspecified abdominal pain Office Visit 08/02/2018 8:45a [facility] Emerald R10.9 Unspecified MD Fabian abdominal pain R11.0 Nausea K21.9 Gastro-esophageal reflux disease without esophagitis R05 Cough R39.11 Hesitancy of micturition F41.9 Anxiety disorder, unspecified Office Visit 07/31/2018 10:45a [facility] Giselle Green R10.9 Unspecified Christopher, ENGINEERING PROGRAMMER abdominal pain R11.0 Nausea Z78.9 Other specified health status Office Visit 07/26/2018 1:45p [facility] And[facility] Desai Teresajohnytyra F41.9 Anxiety disorder, Christopher, ENGINEERING PROGRAMMER unspecified M54.5 Low back pain M25.561 Pain in right knee Z78.9 Other specified health status Office Visit 07/22/2018 12:00p [facility] Andres Pereira, M25.561 Pain in right knee ENGINEERING PROGRAMMER Office Visit 07/18/2018 9:45a [facility] Andres Garcia, R10.9 Unspecified D.O. abdominal pain F41.9 Anxiety disorder, unspecified K21.9 Gastro-esophageal reflux disease without esophagitis M54.5 Low back pain N40.0 Benign prostatic hyperplasia without lower urinry tract symp I10 Essential (primary) hypertension Office Visit 07/15/2018 9:30a [facility] Andres Pereira, R10.9 Unspecified ENGINEERING PROGRAMMER abdominal pain Office Visit 07/12/2018 9:00a [facility] Emerald R10.9 Unspecified MD Fabian abdominal pain F41.9 Anxiety disorder, unspecified K21.9 Gastro-esophageal reflux disease without esophagitis Office Visit 07/10/2018 9:45a [facility] Andres Desai Teresajohnytyra R10.9 Unspecified Christopher, ENGINEERING PROGRAMMER abdominal pain M54.5 Low back pain Z78.9 Other specified health status Office Visit 07/05/2018 8:15a Manati[facility] Desai Teresajohnytyra R10.9 Unspecified Christopher, ENGINEERING PROGRAMMER abdominal pain R42 Dizziness and giddiness Z78.9 Other specified health status Office Visit 06/18/2018 1:30p Orthopedic Fady Jara, S46.012A Strain of Services Of MD [place]/tend the C.M.A. rotator cuff of left shoulder, init S46.011D Strain of vinnie/tend the rotator cuff of right shoulder, subs M19.012 Primary osteoarthritis, left shoulder M19.011 Primary osteoarthritis, right shoulder Office Visit 06/17/2018 8:15a Olinda Mcdanieltommy Pereira, K59.00 Constipation, ENGINEERING PROGRAMMER unspecified G89.29 Other chronic pain Office Visit 06/07/2018 10:00a [facility] Emerald S46.012D Strain of Weinraub, MD musc/tend the rotator cuff of left shoulder, subs M25.512 Pain in left shoulder F41.9 Anxiety disorder, unspecified I10 Essential (primary) hypertension E03.9 Hypothyroidism, unspecified N40.0 Benign prostatic hyperplasia without lower urinry tract symp K21.9 Gastro-esophageal reflux disease without esophagitis Office Visit 06/06/2018 9:15a [facility] Lizbet Suggs, M25.512 Pain in left ENGINEERING PROGRAMMER shoulder Office Visit 06/04/2018 9:00a [facility] Lizbet Suggs, M25.512 Pain in left ENGINEERING PROGRAMMER shoulder Office Visit 05/29/2018 9:45a [facility] Giselle Green K08.89 Other specified Christopher, ENGINEERING PROGRAMMER disorders of teeth and supporting structures Z78.9 Other specified health status Office Visit 05/14/2018 11:30a [facility] Marilu Garcia, M54.9 Dorsalgia, D.O. unspecified F41.9 Anxiety disorder, unspecified Office Visit 05/01/2018 8:00a [facility] Marilu S32.010A Wedge compression Rajeev Garcia. fracture of first lumbar vertebra, init I10 Essential (primary) hypertension F41.9 Anxiety disorder, unspecified G25.81 Restless legs syndrome Office Visit 03/18/2018 8:30a [facility] Shantal Pereira, G25.81 Restless legs ENGINEERING PROGRAMMER syndrome Office Visit 03/08/2018 9:45a [facility] Emerald S32.010A Wedge compression MD Fabian fracture of first lumbar vertebra, init I10 Essential (primary) hypertension G25.81 Restless legs syndrome F41.9 Anxiety disorder, unspecified K21.9 Gastro-esophageal reflux disease without esophagitis E03.9 Hypothyroidism, unspecified Office 02/07/2018 Neurohospitalist Benny Rodriguez G25.81 Restless legs Visit 10:15a Kayden Peters M.D. syndrome Office 02/01/2018 [facility] Marilu S32.010A Wedge Visit 12:52p , Hospitalcarmine Garcia D.O. compression fracture of first lumbar vertebra, init Office 01/31/2018 [facility] Marilu S32.010A Wedge Visit 12:52p Assoc,marianela Hospitalcarmine Garcia D.O. compression fracture of first lumbar vertebra, init [facility] 12:52p Assoc, Hospitalists Sulema Garcia compression fracture of first lumbar vertebra, init Office [facility] 12:51p Assoc, Hospitalcarmine Clay M.D. compression fracture of first lumbar vertebra, init Office 01/28/2018 [facility] S32.010A Wedge Visit 12:51p Assoc, Hospitalcarmine Clay M.D. compression fracture of first lumbar vertebra, init M54.5 Low back pain Office Visit 01/27/2018 [facility] S32.010A Wedge 12:51p Assoc, Tea Clay compression Hospitalists fracture of first lumbar vertebra, init M79.601 Pain in right arm M79.602 Pain in left arm Office Visit 01/27/2018 Neurosurgery Benny Carrasco, S32.010A Wedge 7:00a Services Of Libby Metcalf compression fracture of first lumbar vertebra, init Office Visit 01/26/2018 [facility] S32.010A Wedge 12:50p Assoc, MANUEL Alarcon compression Hospitalists fracture of first lumbar vertebra, init Office Visit 01/08/2018 Orthopedic Fady Jara, S46.012D Strain of 11:00a Services Of Abdelrahman.MCecilleACecille [place]/tend the rotator cuff of left shoulder, subs S46.011D Strain of vinnie/tend the rotator cuff of right shoulder, subs M19.011 Primary osteoarthritis, right shoulder M19.012 Primary osteoarthritis, left shoulder Office Visit 01/03/2018 Orthopedic Ewelina M19.042 Primary 9:00a Services Of Tea Salvador osteoarthritis, left C.M.A. hand M19.041 Primary osteoarthritis, right hand M18.0 Bilateral primary osteoarth of first carpometacarp joints Office Visit 12/27/2017 1:15p Orthopedic Fady Jara, S46.012D Strain of Services Of MD [place]/tim the C.M.A. rotator cuff of left shoulder, subs S46.011D Strain of vinnie/tend the rotator cuff of right shoulder, subs M19.011 Primary osteoarthritis, right shoulder M19.012 Primary osteoarthritis, left shoulder M25.541 Pain in joints of right hand M25.542 Pain in joints of left hand Office Visit 12/19/2017 12:00p [facility] R33.9 Retention of Assoc,marianela Garcia D.O. urine, Hospitalists unspecified B95.7 Oth staphylococcus as the cause of diseases classd elswhr N39.0 Urinary tract infection, site not specified S32.040A Wedge compression fracture of fourth lumbar vertebra, init K21.9 Gastro-esophageal reflux disease without esophagitis E03.9 Hypothyroidism, unspecified Office Visit 12/18/2017 11:59a [facility] Marlene Noel, R33.9 Retention of Assoc,pc N.P. urine, Hospitalists unspecified B95.7 Oth staphylococcus as the cause of diseases classd elswhr N39.0 Urinary tract infection, site not specified S32.040A Wedge compression fracture of fourth lumbar vertebra, init K21.9 Gastro-esophageal reflux disease without esophagitis E03.9 Hypothyroidism, unspecified Office Visit 12/17/2017 11:58a [facility] R33.9 Retention of Assoc,marianela Garcia D.O. urine, Hospitalists unspecified N39.0 Urinary tract infection, site not specified M79.604 Pain in right leg M79.605 Pain in left leg K21.9 Gastro-esophageal reflux disease without esophagitis E03.9 Hypothyroidism, unspecified Office Visit 12/16/2017 11:58a [facility] R33.9 Retention of Assoc,marianela Schilling M.D. urine, Hospitalists unspecified N39.0 Urinary tract infection, site not specified M79.604 Pain in right leg M79.605 Pain in left leg K21.9 Gastro-esophageal reflux disease without esophagitis E03.9 Hypothyroidism, unspecified Office Visit 12/15/2017 11:57a [facility] N39.0 Urinary tract Assoc,marianela Schilling M.D. infection, site Hospitalists not specified R33.9 Retention of urine, unspecified K21.9 Gastro-esophageal reflux disease without esophagitis E03.9 Hypothyroidism, unspecified Office Visit 11/29/2017 12:45p Wound Care Benny F. 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 rotator cuff of left shoulder, subs S46.011D Strain of vinnie/tend the rotator cuff of right shoulder, subs Office Visit 11/09/2017 10:00a [facility] Sherrie Camejo, R00.2 Palpitations Of Bobbin Winder N.P. R00.0 Tachycardia, unspecified I49.1 Atrial premature depolarization I10 Essential (primary) hypertension I71.9 Aortic aneurysm of unspecified site, without rupture E78.5 Hyperlipidemia, unspecified Office Visit 10/16/2017 2:00p Orthopedic Sal Ramon M76.62 Achilles Services Of MD adair, left C.M.A. leg M72.2 Plantar fascial fibromatosis Office Visit 10/09/2017 Olinda Rodriguez I49.1 Atrial premature 1:10p Cardiology Tea Moreno depolarization R00.0 Tachycardia, unspecified I10 Essential (primary) hypertension I71.9 Aortic aneurysm of unspecified site, without rupture E78.5 Hyperlipidemia, unspecified I35.1 Nonrheumatic aortic (valve) insufficiency I34.0 Nonrheumatic mitral (valve) insufficiency Office Visit 09/28/2017 10:15a Orthopedic Sal Ramon M76.62 Achilles Services Of MD adair, left C.M.A. leg M72.2 Plantar fascial fibromatosis M84.375A Stress fracture, left foot, initial encounter for fracture M79.672 Pain in left foot Office Visit 08/22/2017 Olinda Holman. R00.0 Tachycardia, 2:20p Cardiology Tea Moreno unspecified R60.9 Edema, unspecified R06.02 Shortness of breath R00.2 Palpitations R94.31 Abnormal electrocardiogram [ECG] [EKG] Office Visit 08/03/2017 11:00a Orthopedic Sal Ramon, M76.62 Achilles Services Of tendinibradly, left C.M.A. leg M19.071 Primary osteoarthritis, right ankle and foot Office Visit 04/10/2017 Orthopedic Arturo Galindo M19.011 Primary 1:00p Services Of MD [place] osteoarthritis, C.M.A. right shoulder M19.012 Primary osteoarthritis, left shoulder M75.21 Bicipital tendinitis, right shoulder M75.22 Bicipital tendinitis, left shoulder S46.111D Strain of musc/fasc/tend long hd bicep, right arm, subs M47.812 Spondylosis w/o myelopathy or radiculopathy, cervical region Office Visit 02/23/2017 Orthopedic Fady Jara, M19.011 Primary 9:30a Services Of osteoarthritis, C.M.A. right shoulder M19.012 Primary osteoarthritis, left shoulder Office Visit 01/05/2017 Orthopedic Arturo Galindo S70.01xA Contusion of 3:05p Services Of Chun Posadas MD right hip, initial encounter Office Visit 01/05/2017 [facility] Dane M25.551 Pain in right 1:35p Assoc,marianela Bartholomew MD hip Hospitalists I10 Essential (primary) hypertension K21.9 Gastro-esophageal reflux disease without esophagitis R00.0 Tachycardia, unspecified Office Visit 01/04/2017 1:34p [facility] Dane Bartholomew M25.551 Pain in Assoc,marianela [place] right hip Hospitalists I10 Essential (primary) hypertension K21.9 Gastro-esophageal reflux disease without esophagitis R00.0 Tachycardia, unspecified Office Visit 12/26/2016 Orthopedic Arturo Galindo M19.011 Primary 1:00p Services Of MD [place] osteoarthritis, C.M.A. right shoulder M19.012 Primary osteoarthritis, left shoulder S46.211A Strain of musc/fasc/tend prt biceps, right arm, init S46.102A Unsp injury of musc/fasc/tend long hd bicep, left arm, init M75.21 Bicipital tendinitis, right shoulder M75.22 Bicipital tendinitis, left shoulder Office Visit 12/11/2016 2:00p [facility] S. G25.81 Restless legs Services Of Libby Peters M.D. syndrome R11.0 Nausea Office Visit 10/16/2016 [facility] Caleb L03.211 Cellulitis of 2:58p Assoc,marianela Raines M.D. face Hospitalists L03.213 Periorbital cellulitis K04.7 Periapical abscess without sinus R41.89 Oth symptoms and signs w cognitive functions and awareness Office Visit 10/15/2016 2:57p [facility] Beata L03.211 Cellulitis of Assoc,marianela Harrell, DO face Hospitalists L03.213 Periorbital cellulitis K04.7 Periapical abscess without sinus R41.89 Oth symptoms and signs w cognitive functions and awareness Office 10/02/2016 [facility] Brad R20.0 Anesthesia of Visit 10:52a Kayden Mendez MD skin R47.81 Slurred speech Office Visit 10/02/2016 [facility] Eugene Meza 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 infarction, Hospitalists unspecified I10 Essential (primary) hypertension E78.5 Hyperlipidemia, unspecified E03.9 Hypothyroidism, unspecified Office Visit 03/28/2016 [facility] Gisellemary Green R33.9 Retention of 1:25p Assoc,marianela Christopher, ENGINEERING PROGRAMMER urine, Hospitalists unspecified N17.9 Acute kidney failure, unspecified I10 Essential (primary) hypertension E03.9 Hypothyroidism, unspecified Office Visit 03/11/2016 7:41a [facility] Marilu R07.9 Chest pain, Assoc,marianela Garcia, D.O. unspecified Hospitalists N17.9 Acute kidney failure, unspecified R33.9 Retention of urine, unspecified I10 Essential (primary) hypertension Office Visit 03/10/2016 7:40a [facility] Marilu R07.9 Chest pain, Assoc,marianela Garcia, D.O. unspecified Hospitalists N17.9 Acute kidney failure, unspecified R33.9 Retention of urine, unspecified I10 Essential (primary) hypertension Office Visit 03/09/2016 7:39a [facility] Tiffany R07.9 Chest pain, Assoc,marianela Kidd M.D. 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 Shoulder Region Office Visit 11/10/2014 [place] Benny Rodriguez 333.94 Restless Leg 10:30a Neurologic Tea Peters Syndrome Services Of [facility] Office Visit 10/28/2013 [place] Benny Rodriguez 333.94 Restless Leg 11:45a Neurologic Tea Peters Syndrome Services Of [facility] Office Visit 08/20/2013 Angie Jean 715.11 Osteoarthrosis 10:00a Services Of Tea Núñez Localized Prim C.M.A. Shoulder Region Office Visit 04/10/2013 Angie Jean 715.11 Osteoarthrosis 10:45a Services Of Tea Núñez Localized Prim C.M.A. Shoulder Region Office Visit 02/28/2013 Angie Jean 715.11 Osteoarthrosis 10:00a Services Of Tea Núñez Localized Prim C.M.A. Shoulder Region Office Visit 02/04/2013 Angie Cunningham 727.62 Ruptured Tendon 10:00a Services Of Tea Biceps (Long Head) C.M.A. Office Visit 01/10/2013 Carlos Campos.11 Osteoarthrosis 11:15a Services Of [place] Localized Prim C.M.A. Shoulder Region 727.62 Ruptured Tendon Biceps (Long Head) Office Visit 12/31/2012 Carlos Campos.11 Osteoarthrosis 2:00p Services Of Tea Localized Prim C.M.A. Shoulder Region Office Visit 12/26/2012 Orthopedic Les Young, 715.11 Osteoarthrosis 11:00a Services Of [place] Localized Prim C.M.A. Shoulder Region Office Visit 09/03/2012 Olinda Rodriguez 333.94 Restless Leg 2:00p Neurologic Tea Peters Syndrome Services Of [facility] Office Visit 08/21/2012 Olinda Annamaria SCecille 785.1 Palpitations 11:00a Cardiology Tea Moreno 785.0 Tachycardia Unspec 401.1 Hypertension Benign 272.2 Hyperlipidemia Mixed Office Visit 08/09/2012 11:30a Orthopedic Les Cunningham 715.11 Osteoarthrosis Services Of Tea Localized Prim C.M.A. Shoulder Region 719.41 Pain Joint Shoulder Region Office 07/24/2012 Orthopedic Christina 715.34 Osteoarthrosis Visit 9:45a Services Of Tea Wells Not Spec C.M.A. Prime Or 2Ndy Hand Office 07/22/2012 Olinda Yin SCecille 785.0 Tachycardia Unspec Visit 9:40a Cardiology Tea Moreno 272.2 Hyperlipidemia Mixed 401.1 Hypertension Benign 785.1 Palpitations 786.05 Shortness Of Breath Office Visit 04/30/2012 Olinda Horta 333.94 Restless Leg 2:45p Neurologic Tea G[place]am Syndrome Services Of [facility] Office Visit 03/25/2012 Orthopedic Christina 715.11 Osteoarthrosis 11:00a Services Of Josef Wells Prim C.M.ACecille Metcalf Shoulder Region Office Visit 03/19/2012 Angie Cunningham 715.11 Osteoarthrosis 2:45p Services Of Tea Localized Prim C.M.A. Shoulder Region Office Visit 11/23/2011 Angie Cunningham 715.91 Osteoarthrosis 10:00a Services Of Tea Unspec Genlzd Or C.M.A. Localized Shoulder 715.11 Osteoarthrosis Localized Prim Shoulder Region Office 09/14/2011 Angie Cunningham 715.11 Osteoarthrosis Localized Visit 11:00a Services Of [place] Prim Shoulder Region C.M.A. 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 Office 11/03/2004 [place] Josh Patel 272.0 Hypercholesterolemia Visit 10:20a Cardiology Tea Duvall Pure Plan of Treatment Future Appointment(s):02/10/2020 1:45 pm - Benny Peters M.D. at [place] [facility]02/17/2019 2:15 pm - Ewelina Salvador M.D. at Orthopedic Services Of [facility].M.A.04/01/2019 10:15 am - Fady Jara MD at Orthopedic [facility]02/11/2019 - Benny Peters M.D.G25.81 Restless legs syndromeFollow up:1 YEAR
--- NOTE | 2019-02-17 19:10 | ED ---
Progress - Progress Note Progress Note: This pt is a sign out from Dr. Hernandez to Dr. Rojas at shift change 1900 02/17/19 pending a chest/thorax CTA and an US DVT and further examination. - Results/Orders Results/Orders: His CTA chest/thorax shows the following: No pulmonary embolism. Large right hernia with the entire stomach in the left thorax. ED Physician has reviewed this report. His Doppler venous study found the following: No acute findings. No evidence of deep vein thrombosis. ED Physician has reviewed this report. Course/Dx - Course Course Of Treatment: This pt is a sign out from Dr. Hernandez to Dr. Rojas at shift change 1900 02/17/19 pending a chest/thorax CTA and an US DVT and further examination. His CTA chest/thorax found the following: No pulmonary embolism. Large right hernia with the entire stomach in the left thorax. His venous doppler study found the following: No acute findings. No evidence of deep vein thrombosis. He will be discharged home with a Dx of SOB and a hiatus hernia. - Diagnoses Provider Diagnoses: Shortness of breath, HH (hiatus hernia) Discharge - Sign-Out/Discharge Documenting (check all that apply): Patient Departure - discharge, Receiving Sign-Out Receiving patient FROM: Marlen Hernandez Patient Received Moderate/Deep Sedation with Procedure: No - Discharge Plan Condition: Stable Patient Education Materials: Hiatal Hernia (ED), Shortness of Breath (ED) Referrals: Marilu Garcia DO [Primary Care Provider] - 2 Days Additional Instructions: PLEASE RETURN TO THE ED IMMEDIATELY FOR WORSENING OR CONCERNING SYMPTOMS. Follow up with your primary care physician in 2-3 days for further evaluation. - Attestation Statements Document Initiated by Scribe: Yes Documenting Scribe: Buzz Davis Provider For Whom Scribe is Documenting (Include Credential): Rupinder Huitron MD Scribe Attestation: Buzz Talbert, scribed for Rupinder Huitron MD on 02/17/19 at 2050. Status of Scribe Document: Ready
[2019-02-17 20:01] LABS: Urine Appearance Cloudy; Urine Bacteria Absent (Absent); Urine Bilirubin Negative (Negative); Urine Blood Negative (Negative); Urine Color Yellow; Urine Glucose Negative (Negative); Urine Ketones Negative (Negative); Urine Nitrite Positive (Negative); Urine Protein Negative (Negative); Urine Red Blood Cell Trace(0-2/hpf) (Absent); Urine Specific Gravity 1.035 (1.010-1.030); Urine Urobilinogen Negative (Negative); Urine White Blood Cell 2+(11-20/hpf) (Absent)
[2019-02-17 21:17] VITALS: BP 152/99
--- NOTE | 2019-02-19 05:55 | PN ---
Progress Note - Progress Note Date of Service: 02/19/19 Note: patient urine culture grew Klebiella oxytoca 50-75,000. this is not a significant culture so will not treat at this time.
== END 2019-02-17 21:15 | disposition home or self-care (01) ==
LOC: ED 16:06
DX: R06.02 Shortness of breath (principal); R05 Cough; Z79.01 Long term (current) use of anticoagulants; Z86.718 Personal history of other venous thrombosis and embolism; I10 Essential (primary) hypertension; Z86.79 Personal history of other diseases of the circulatory system; K21.9 Gastro-esophageal reflux disease without esophagitis; Z85.828 Personal history of other malignant neoplasm of skin; Z87.891 Personal history of nicotine dependence; M79.605 Pain in left leg; M79.604 Pain in right leg; N40.0 Benign prostatic hyperplasia without lower urinary tract symptoms
CPT/HCPCS: 36415; 71045; 71275; 80053; 81003; 81015; 83605; 83880; 84484; 85025; 85379; 85610; 85730; 87077; 87086; 87186; 93005; 93970; 99283; Q9967

== ENCOUNTER 2019-03-21 12:25 | Emergency (ER) | payer MEDICARE, MEDICAID ==
--- OUTSIDE RECORDS SUMMARY | 2019-03-21 12:56 | XMS REPORT | Continuity of Care Document ---
:1945 External Reference #:[id number] Author Name Harinder Vargas MD (transmitted by agent of provider Skylar Peter) Address [address] [place] [address] Care Team Providers Name Role Phone Srinivas Joel MD - Physical Care Team Information Radial Drill Operator Medicine & Rehabilitation Marilu Garcia DO - Primary Care Care Team Information Radial Drill Operator [phone] Problems Active Problems Provider Date Tachycardia Annamaria [...] 12/11/2018 Constipation Ofelia Guillen NP Onset: 12/11/2018 Social History Type Date Description Comments Sex Unknown ETOH Use Denies alcohol use Tobacco Use Start: Unknown End: Patient is a former quite years ago, Unknown smoker 1973, prior to that, off and on smoker for 10 years Recreational Drug Use Denies Drug Use Smoking Status Reviewed: 02/21/19 Patient is a former quite years ago, [...] Ofelia Guillen, 11/13/2018 40mg minutes prior to EDUCATION PARAPROFESSIONAL Tablets DR meal once a day Buspirone HCL Take 20 mg by mouth Shantal 03/04/2018 10mg three times daily MI Pereira Tablets Zoloft 1 by mouth every Unknown 25mg Tablets day Proscar 1 by mouth every Unknown 5mg Tablets day Pentoxifylline ER 1 tab by mouth Unknown 400mg every 8 hours. mdd Tablets ER 3 Melatonin ER 1 tab at bedtime Unknown 5mg Tablets for sleep ER Lasix 1 by mouth every Unknown 20mg Tablets day Ketoconazole wash scalp every Unknown 2% Shampoo evening Ibuprofen 200 400-600mg every 6 Unknown 200mg hours as needed for Tablets pain. Glycolax 17 grams orally Unknown [id number] Powder once daily Losartan Potassium 1 by mouth every Unknown 25mg day Tablets Metoprolol Succinate 1 by mouth twice a Unknown ER day 25mg Tablets ER 24HR Atorvastatin Calcium 1 by mouth every Unknown 40mg day Tablets Simethicone Extra one by mouth four Unknown Strength times a day as 125mg Capsules needed Tylenol Extra Strength 1-2 tabs by mouth [...] bid Unknown 325(65Fe) mg Tablets History Medications Guaifenesin one to two tablets 30tabs Ofelia Guillen NP 11/13/2018 - 200mg Tablets by mouth every 4 02/20/2019 hours Medications Administered in Office Medication SIG Qnty Indications Ordering Provider Date Depomedrol 40MG Ewelina Salvador M.D. 02/17/2019 Injection Depomedrol 40MG Ewelina Salvador M.D. 02/17/2019 Injection Triamcinolone (Kenalog) Fady Jara MD 12/26/2018 Injection Triamcinolone (Kenalog) Fady Jara MD 12/26/2018 Injection Depomedrol 40MG Ewelina Salvador M.D. 10/30/2018 Injection Depomedrol 40MG Ewelina Salvador M.D. 10/09/2018 Injection Depomedrol 40MG Ewelina Salvador M.D. 10/09/2018 Injection Triamcinolone (Kenalog) Fady Jara MD 09/24/2018 Injection Triamcinolone (Kenalog) Fady Jara MD 09/24/2018 Injection Depomedrol 40MG Ewelina Salvador M.D. 06/20/2018 Injection Depomedrol 40MG Ewelina Salvador M.D. 06/20/2018 Injection Triamcinolone (Kenalog) Fady Jara MD 06/18/2018 Injection Triamcinolone (Jordyalog) Fady Jara MD 06/18/2018 Injection Depomedrol 40MG Ewelina Salvador M.D. 01/03/2018 Injection Triamcinolone (Jordyalog) Fady Jara MD 12/27/2017 Injection Triamcinolone (Jordyalog) Fady Jara MD 12/27/2017 Injection Technetium TC 99M Annamaria [place] Guhildacarolyne, 09/27/2017 Tetrofosmin, Per Unit Dose Up M.D. To 40 Millicuries Injection Triamcinolone (Jordyalog) Fady Jara MD 08/28/2017 Injection Triamcinolone (Kenalog) Fady Jara MD 08/28/2017 Injection Triamcinolone (Jordyalog) Fady Jara MD 05/29/2017 Injection Triamcinolone (Jordyalog) Fady Jara MD 05/29/2017 [...] Depomedrol 80MG Raman Conway M.D. 04/03/2011 Injection Immunizations Description No Information Available Vital Signs Date Vital Result Comment 02/21/2019 11:07am Height 70 inches 5'10" Weight 200.00 lb pt stated Heart Rate 112 /min BP Systolic 128 mmHg BP Diastolic 83 mmHg O2 % BldC Oximetry 93 % BMI (Body Mass Index) 28.7 kg/m2 02/17/2019 2:36pm Height 70 inches 5'10" Heart Rate 117 /min BP Systolic 128 mmHg BP Diastolic 82 mmHg Body Temperature 97.6 F Results Test Date Facility Test Result H/L Range Note CBC No Diff 11/15/2018 [facility] White Blood 11.2 10^3/uL High 3.5-10.[address] [place] [address] [phone] Red Blood Count 4.34 10^6/uL Normal 4.18-5.48 Hemoglobin 14.1 g/dL Normal 14.0-18.0 Hematocrit 41 % Low 42-52 Mean Corpuscular Volume 95 fL High 80-94 Mean Corpuscular Hemoglobin 32 pg High 27-31 Mean Corpuscular HGB Conc 34 g/dL Normal 31-36 Red Cell Distribution Width 15 % Normal 10.5-15 Platelet Count 214 10^3/uL Normal 150-450 Mean Platelet Volume 6.3 fL Low 7.4-10.4 Comp Metabolic 11/15/2018 [facility] Sodium 135 mmol/L Normal 135-[address] [place] [address] [phone] Potassium 4.1 mmol/L Normal 3.5-5.0 Chloride 99 [...] Egfr 109.3 >60 2 Lipid Profile 11/15/2018 [facility] Triglycerides 353 mg/dL 3 (Trig/Chol/HDL) [address] [place] [address] [phone] Cholesterol 272 mg/dL 4 HDL Cholesterol 43.8 mg/dL 5 LDL Cholesterol 158 mg/dL 6 Iron & Iron Binding 11/15/2018 [facility] Iron 80 g/dL Normal 50-212 [address] [place] [address] [phone] Unsaturated Iron Binding < 332 g/dL Total Iron Binding Capacity 347 g/dL Normal 250-450 Transferrin 248 mg/dL Normal 203-362 % Iron Saturation 23 % Normal 15-55 1 [facility] [address], Room Number 241 [id number] 2 Because ethnic data is not always [...] High: 130-159 High: 160-189 Very High: >189 Procedures Date Code Description Status 02/17/2019 Injection, Carpal Tunnel Completed 12/26/2018 Inject/Drain Joint/Bursa Major W/O US Completed 11/06/2018 21568 ECHO Transthoracic, Real-Time 2D With Doppler And Color Completed Flow 11/06/2018 51064 ECHO Transthoracic, Real-Time 2D With Doppler And Color Completed Flow 10/31/2018 04849 Holter Monitor Review (24 hr)dr review & interp only Completed 10/30/2018 Inject/Drain Joint/Bursa Small W/O US Completed 10/28/2018 45052 ECG Monitor/Recording W/Visual Superimposition Scanning Completed 10/28/2018 15319 ECG Monitor/Recording W/Visual Superimposition Scanning Completed 10/09/2018 Injection, Carpal Tunnel Completed 10/07/2018 83140 EKG Tracing & Interpretation Completed 09/24/2018 Inject/Drain Joint/Bursa Major W/O US Completed 10/16/2017 [id number] Colonoscopy Completed 02/20/2011 [id number] Colonoscopy Completed Medical Devices Description No Information Available Encounters Type Date Location Provider Dx Diagnosis Office Visit 01/30/2019 [facility] Marilu Garcia, K44.9 Diaphragmatic hernia 10:15a D.O. without obstruction or gangrene K59.00 Constipation, unspecified R11.0 Nausea R00.0 Tachycardia, unspecified I10 Essential (primary) hypertension K21.9 Gastro-esophageal reflux disease without esophagitis F41.9 Anxiety disorder, unspecified N40.1 Benign prostatic hyperplasia with lower urinary tract symp Office Visit 12/11/2018 [facility] Ofelia K44.9 Diaphragmatic 10:30a Guillen, EDUCATION PARAPROFESSIONAL hernia without obstruction or gangrene R05 Cough K59.00 Constipation, unspecified Office Visit 11/13/2018 [facility] [place] K44.9 Diaphragmatic 10:30a Guillen, EDUCATION PARAPROFESSIONAL hernia without obstruction or gangrene R10.13 Epigastric pain R11.0 Nausea Z79.899 Other halfway (current) drug therapy Office Visit 10/31/2018 10:15a [facility] Randy Price, R00.0 Tachycardia, PA unspecified R05 Cough Office Visit 10/09/2018 10:45a Orthopedic Ewelina Salvador, G56.03 Carpal tunnel Services Of M.D. syndrome, C.M.A. bilateral upper limbs G56.23 Lesion of ulnar nerve, bilateral upper limbs Office Visit 10/07/2018 3:00p [facility] [place] I10 Essential Tea Moreno (primary) hypertension R94.31 Abnormal electrocardiogram [ECG] [EKG] R00.0 Tachycardia, unspecified I71.9 Aortic aneurysm of unspecified site, without rupture Office Visit 10/04/2018 [facility] [place] K44.9 Diaphragmatic 10:00a Guillen, EDUCATION PARAPROFESSIONAL hernia without obstruction or gangrene Office Visit 09/25/2018 [facility] Marilu G56.03 Carpal tunnel 11:15a Sulema Garcia syndrome, bilateral upper limbs G57.93 Unspecified mononeuropathy of bilateral lower limbs K21.9 Gastro-esophageal reflux disease without esophagitis F41.9 Anxiety disorder, unspecified N40.1 Benign prostatic hyperplasia with lower urinary tract symp Office Visit 09/18/2018 10:00a Orthopedic Ewelina Salvador G56.03 Carpal tunnel Services Of M.D. syndrome, C.M.A. bilateral upper limbs G56.02 Carpal tunnel syndrome, left upper limb G56.21 Lesion of ulnar nerve, right upper limb G56.22 Lesion of ulnar nerve, left upper limb Office Visit 09/04/2018 8:15a [facility] Giselle Green R60.0 Localized edema Christopher, EDUCATION PARAPROFESSIONAL Z78.9 Other specified health status Assessments Date Code Description Provider 02/17/2019 G56.03 Carpal tunnel syndrome, bilateral Ewelina Salvador M.D. upper limbs 02/17/2019 R06.02 Shortness of breath Marilu Jose, D.O. 02/11/2019 G25.81 Restless legs syndrome Benny Peters M.D. 01/30/2019 K44.9 Diaphragmatic hernia without Marilu Jose, D.O. obstruction or gangrene 01/30/2019 K59.00 Constipation, unspecified Marilu Jose, D.O. 01/30/2019 R11.0 Nausea Marilu Jose, D.O. 01/30/2019 R00.0 Tachycardia, unspecified Marilu Jose, D.O. 01/30/2019 I10 Essential (primary) hypertension Marilu Jose, D.O. 01/30/2019 K21.9 Gastro-esophageal reflux disease Marilu Jose, D.O. without esophagitis 01/30/2019 F41.9 Anxiety disorder, unspecified Marilu Jose, D.O. 01/30/2019 N40.1 Benign prostatic hyperplasia with Marilu Jose, D.O. lower urinary tract symptoms 12/26/2018 S46.012A Strain of muscle(s) and tendon(s) of Fady Jara MD the rotator cuff of lef 12/26/2018 S46.011D Strain of muscle(s) and tendon(s) of Fady Jara MD the rotator cuff of rig 12/26/2018 M19.012 Primary osteoarthritis, left Fady Jara MD shoulder 12/26/2018 M19.011 Primary osteoarthritis, right Fady Jara MD shoulder 12/11/2018 K44.9 Diaphragmatic hernia without Ofelia Guillen, EDUCATION PARAPROFESSIONAL obstruction or gangrene 12/11/2018 R05 Cough Ofelianoni Guillen, EDUCATION PARAPROFESSIONAL 12/11/2018 K59.00 Constipation, unspecified Ofelia Guillen, EDUCATION PARAPROFESSIONAL 11/28/2018 K44.9 Diaphragmatic hernia without MANUEL Greene obstruction or gangrene 11/28/2018 R10.13 Epigastric pain MANUEL Greene 11/28/2018 R11.0 Nausea MANUEL Greene 11/28/2018 Z79.899 Other halfway (current) drug MANUEL Greene therapy 11/28/2018 G56.03 Carpal tunnel syndrome, bilateral Juliette Martin, PA upper limbs 11/28/2018 M18.11 Unilateral primary osteoarthritis of Juliette Martin, PA first carpometacarpal j 11/28/2018 R05 Cough Juliette Martin, PA 11/27/2018 R10.13 Epigastric pain Juliette Martin, PA 11/27/2018 K44.9 Diaphragmatic hernia without Juliette Martin, PA obstruction or gangrene 11/27/2018 R11.0 Nausea Juliette Martin, PA 11/27/2018 Z79.899 Other halfway (current) drug Juliette Martin, PA therapy 11/27/2018 G56.03 Carpal tunnel syndrome, bilateral Juliette Martin, PA upper limbs 11/27/2018 M18.11 Unilateral primary osteoarthritis of Juliette Martin, PA first carpometacarpal j 11/27/2018 R05 Cough Julietteyolis Martin, PA 11/13/2018 K44.9 Diaphragmatic hernia without Ofelianoni Guillen, EDUCATION PARAPROFESSIONAL obstruction or gangrene 11/13/2018 R10.13 Epigastric pain Ofelia Guillen, EDUCATION PARAPROFESSIONAL 11/13/2018 R11.0 Nausea Ofelianoni Guillen, EDUCATION PARAPROFESSIONAL 11/13/2018 Z79.899 Other halfway (current) drug Ofelianoni Guillen, EDUCATION PARAPROFESSIONAL therapy 11/06/2018 I71.9 Aortic aneurysm of unspecified site, Annamaria Moreno M.D. without rupture 11/06/2018 I71.9 Aortic aneurysm of unspecified site, Traveling ECHO 1 without rupture 11/06/2018 R00.0 Tachycardia, unspecified Traveling ECHO 1 10/31/2018 R00.0 Tachycardia, unspecified Annamaria Moreno M.D. 10/31/2018 R00.0 Tachycardia, unspecified MANUEL Herrera 10/31/2018 R05 Cough MANUEL Herrera 10/30/2018 G56.03 Carpal tunnel syndrome, bilateral Ewelina Salvador M.D. upper limbs 10/30/2018 M18.11 Unilateral primary osteoarthritis of Ewelina Salvador M.D. first carpometacarpal j 10/28/2018 R94.31 Abnormal electrocardiogram [ECG] Nurse Visit cc [EKG] 10/28/2018 R00.0 Tachycardia, unspecified Annamaria Moreno M.D. 10/28/2018 R00.0 Tachycardia, unspecified Nurse Visit cc 10/09/2018 G56.03 Carpal tunnel syndrome, bilateral Ewelina Salvador M.D. upper limbs 10/09/2018 G56.23 Lesion of ulnar nerve, bilateral Ewelina Salvador M.D. upper limbs 10/07/2018 I10 Essential (primary) hypertension Annamaria Moreno M.D. 10/07/2018 R94.31 Abnormal electrocardiogram [ECG] Annamaria Moreno M.D. [EKG] 10/07/2018 R00.0 Tachycardia, unspecified Annamaria Moreno M.D. 10/07/2018 I71.9 Aortic aneurysm of unspecified site, Annamaria Moreno M.D. without rupture 10/04/2018 K44.9 Diaphragmatic hernia without Ofelia Guillen, EDUCATION PARAPROFESSIONAL obstruction or gangrene 09/25/2018 G56.03 Carpal tunnel syndrome, bilateral Marilu Jose, D.O. upper limbs 09/25/2018 G57.93 Unspecified mononeuropathy of Marilu Jose, D.O. bilateral lower limbs 09/25/2018 K21.9 Gastro-esophageal reflux disease Marilu Jose, D.O. without esophagitis 09/25/2018 F41.9 Anxiety disorder, unspecified Marilu Jose, D.O. 09/25/2018 N40.1 Benign prostatic hyperplasia with Marilu Jose, D.O. lower urinary tract symp 09/24/2018 S46.012A Strain of muscle(s) and tendon(s) of Fady Jara MD the rotator cuff of lef 09/24/2018 S46.011D Strain of muscle(s) and tendon(s) of Fady Jara MD the rotator cuff of rig 09/24/2018 M19.012 Primary osteoarthritis, left Fady Jara MD shoulder 09/24/2018 M19.011 Primary osteoarthritis, right Fday Jara MD shoulder 09/18/2018 G56.03 Carpal tunnel syndrome, bilateral Ewelina Salvador M.D. upper limbs 09/18/2018 G56.02 Carpal tunnel syndrome, left upper Ewelina Salvador M.D. limb 09/18/2018 G56.21 Lesion of ulnar nerve, right upper Ewelina Salvador M.D. limb 09/18/2018 G56.22 Lesion of ulnar nerve, left upper Ewelina Salvador M.D. limb 09/04/2018 R60.0 Localized edema Giselle Christopher NP 09/04/2018 Z78.9 Other specified health status Giselle Christopehr NP Plan of Treatment Future Appointment(s):02/10/2020 1:45 pm - Benny Peters M.D. at [facility]04/01/2019 10:15 am - [facility] Functional Status Description No Information Available Mental Status Description No Information Available Referrals Description No Information Available
--- NOTE | 2019-03-21 12:57 | ED ---
Shortness of Breath - HPI Summary HPI Summary: 73 year old M brought in by EMS to [facility] complains of worsening dyspnea and productive cough since 1 week ago. The patient rates the pain 0/10 in severity. Symptoms aggravated by nothing. Symptoms alleviated by nothing. Patient states he had a chest x-ray done recently which he states fluid in his lungs. [facility] to have the fluid drained per patient. - History of Current Complaint Chief Complaint: EDShortnessOfBreath Time Seen by Provider: 03/21/19 12:39 Hx Obtained From: Patient Onset/Duration: Lasting Weeks - 1, Still Present Timing: Constant Current Severity: None Aggravating Factors: Nothing Alleviating Factors: Nothing - Allergy/Home Medications Allergies/Adverse Reactions: Allergies Allergy/AdvReac Type Severity Reaction Status Date / Time codeine AdvReac headache, Verified 02/26/19 14:00 nausea colesevelam [From WelChol] AdvReac Muscle Ache Verified 02/26/19 14:00 meclizine AdvReac Nausea Verified 02/26/19 14:00 oxycodone AdvReac Nausea Verified 02/26/19 14:00 PMH/Surg Hx/FS Hx/Imm Hx Endocrine/Hematology History: Reports: Hx Anticoagulant Therapy, Hx Thyroid Disease Denies: Hx Diabetes Cardiovascular History: Reports: Hx Angina, 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, Hx Hypercholesterolemia, Hx Hypertension, Hx Peripheral Vascular Disease, Other Cardiovascular Problems/Disorders - CHRONIC TACHYCARDIA Denies: Hx Angioplasty, Hx Congestive Heart Failure, Hx Embolism, Hx Pacemaker/ICD Respiratory History: Reports: Other Respiratory Problems/Disorders - chronic cough Denies: Hx Asthma, Hx Chronic Obstructive Pulmonary Disease (COPD), Hx Lung Cancer, Hx Pleural Effusion, Hx Pulmonary Edema, Hx Pulmonary Embolism, Hx Seasonal Allergies, Hx Sleep Apnea GI History: Reports: Hx Gastroesophageal Reflux Disease, Hx Hiatal Hernia, Other GI Disorders Denies: Hx Irritable Bowel History: Reports: Hx Benign Prostatic Hyperplasia, Other Problems/ Disorders - [place] Denies: Hx Dialysis, Hx Kidney Infection, Hx Kidney Stones, Hx Renal Disease Musculoskeletal History: Reports: Hx Arthritis, Hx Back Problems Sensory History: Reports: Hx Contacts or Glasses, Hx Eye Injury Denies: Hx Cataracts, Hx Glaucoma, Hx Hearing Aid Opthamlomology History: Reports: Hx Contacts or Glasses, Hx Eye Injury Denies: Hx Cataracts, Hx Glaucoma Neurological History: Reports: Hx Developmental Delay, Hx Headaches, Hx Transient Ischemic Attacks (TIA), Other Neuro Impairments/Disorders - speech impediment Denies: Hx Migraine, Hx Seizures, Hx Spinal Cord Injury Psychiatric History: Reports: Hx Anxiety, Other Psychiatric Issues/Disorders Denies: Hx Depression, Hx Panic Disorder - Cancer History Cancer Type, Location and Year: Skin cancer 1999 - Surgical History Surgery Procedure, Year, and Place: None - Immunization History Date of Tetanus Vaccine: up to date Date of Influenza Vaccine: utd Infectious Disease History: No Infectious Disease History: Denies: Hx of Known/Suspected MRSA, Traveled Outside the [place] in Last 30 Days - Family History Known Family History: Positive: Cardiac Disease, Hypertension Negative: Diabetes - Social History Alcohol Use: None Hx Substance Use: No Substance Use Type: Reports: None Hx Tobacco Use: Yes Smoking Status (MU): Former Smoker Type: Cigarettes Have You Smoked in the Last Year: No Review of Systems Negative: Fever Positive: Cough, Other - dyspnea All Other Systems Reviewed And Are Negative: Yes Physical Exam - Summary Physical Exam Summary: Appearance: The patient is well-nourished in no acute distress and in no acute pain. Skin: The skin is warm and dry, and skin color reflects adequate perfusion. HEENT: The head is normocephalic and atraumatic. The pupils are equal and reactive. The conjunctivae are clear and without drainage. Nares are patent and without drainage. Mouth reveals moist mucous membranes, and the throat is without erythema and exudate. The external ears are intact. The ear canals are patent and without drainage. The tympanic membranes are intact. Neck: The neck is supple with full range of motion and non-tender. There are no carotid bruits. There is no neck vein distension. Respiratory: Respiratory exam is limited by foaming Cardiovascular: Heart is regular rate and rhythm. There is no murmur or rub auscultated. There is no peripheral edema and pulses are symmetrical and equal. Abdomen: The abdomen is soft and non-tender. There are normal bowel sounds heard in all four quadrants and there is no organomegaly palpated. Musculoskeletal: There is no back tenderness noted. Extremities are non-tender with full range of motion. There is good capillary refill. There is no peripheral edema or calf tenderness elicited. Neurological: Patient is alert and oriented to person, place and time. The patient has symmetrical motor strength in all four extremities. Cranial nerves are grossly intact. Deep tendon reflexes are symmetrical and equal in all four extremities. Psychiatric: The patient has an appropriate affect and does not exhibit any anxiety or depression. Triage Information Reviewed: Yes Vital Signs On Initial Exam: Initial Vitals Temp Pulse Resp BP Pulse Ox 98.4 F 106 16 119/89 92 03/21/19 12:36 03/21/19 12:36 03/21/19 12:36 03/21/19 12:36 03/21/19 12:36 Vital Signs Reviewed: Yes Diagnostics - Vital Signs Vital Signs Temp Pulse Resp BP Pulse Ox 03/21/19 12:36 98.4 F 106 16 119/89 92 - Laboratory Result Diagrams: 03/21/19 13:25 03/21/19 13:28 Lab Statement: Any lab studies that have been ordered have been reviewed, and results considered in the medical decision making process. - Radiology CXR Radiology Interpretation Completed By: Radiologist Summary of Radiographic Findings: HIATAL HERNIA. LOW LUNG VOLUME. NO ACTIVE CARDIOPULMONARY DISEASE. ED physician has reviewed this report. - EKG 1331 Cardiac Rate: Tachycardia - 101 BPM EKG Rhythm: Sinus Tachycardia Summary of EKG Findings: Sinus tachycardia 101 BPM. No acute changes Re-Evaluation - Re-Evaluation First Eval Re-Evaluation Time: 15:08 Comment: patient updated on plan of care. patient is agreeable to discharge Course/Dx - Course Course Of Treatment: Mr. Gasca presented telling me that he [facility] and it showed fluid in his his long that needed to be removed. He complained of shortness of breath especially with exertion and was somewhat equivocal about whether this was a chronic long-term problem or an acute problem. He was nontoxic in appearance with stable vitals. His lungs are clear to auscultation for me. He was mildly tachycardic during his stay here which she says is normal for him. I looked back through previous visits confirms that he is normally a little bit tachycardic. Chest x-ray revealed possibly a very small pleural effusion on the right. I'm [facility]. - Diagnoses Provider Diagnoses: Dyspnea, Tachycardia Discharge ED - Sign-Out/Discharge Documenting (check all that apply): Patient Departure - Discharge Patient Received Moderate/Deep Sedation with Procedure: No - Discharge Plan Condition: Stable Disposition: HOME Patient Education Materials: Dyspnea (ED), Tachycardia (ED) Referrals: Marilu Garcia, [Primary Care Provider] - 2 Days Additional Instructions: Follow up with your primary care provider in 2-3 days. Return to the Emergency Department for new or worsening symptoms. - Billing Disposition and Condition Condition: STABLE Disposition: Home - Attestation Statements Document Initiated by Jasminibe: Yes Documenting Scribe: Ai Dalton Provider For Whom Mary Beth is Documenting (Include Credential): Dorian Garcia MD Scribe Attestation: Ai Talbert, scribed for Dorian Garcia MD on 03/21/19 at 1753. Scribe Documentation Reviewed: Yes Provider Attestation: The documentation as recorded by the Ai turner accurately reflects the service I personally performed and the decisions made by , Dorian Garcia MD Status of Scribe Document: Viewed
[2019-03-21 13:41] LABS: Hematocrit 42 % (42-52); Hemoglobin 14.3 g/dL (14.0-18.0); Mean Corpuscular HGB Conc 34 g/dL (31-36); Mean Corpuscular Hemoglobin 33 pg (27-31); Mean Corpuscular Volume 95 fL (80-94); Mean Platelet Volume 5.7 fL (7.4-10.4); Platelet Count 225 10^3/uL (150-450); Red Blood Count 4.38 10^6 /uL (4.18-5.48); Red Cell Distribution Width 15 % (10-15); White Blood Count 8.1 10^3/uL (3.5-10.8)
[2019-03-21 13:50] LABS: INR 0.98 (0.82-1.09)
[2019-03-21 14:00] LABS: Albumin 3.8 g/dL (3.2-5.2); Albumin/Globulin Ratio 1.4 (1-3); BUN/Creatinine Ratio 12.9 (8-20); C Reactive Protein 20.78 mg/L (<8.01); EGFR African American 96.9 (>60); EGFR Non-African American 80.1 (>60); Globulin 2.8 g/dL (2-4); Potassium 3.8 mmol/L (3.5-5.0); Total Bilirubin 0.3 mg/dL (0.2-1.0); Total Protein 6.6 g/dL (6.4-8.9)
[2019-03-21 14:12] LABS: ABS Eosinophils 0.1 10^3/ul (0-0.6); ABS Lymphocytes 2.8 10^3/ul (1.0-4.8); ABS Monocytes 0.8 10^3/ul (0-0.8); ABS Neutrophils 4.4 10^3/ul (1.5-7.7); Eosinophil % 1.6 %; Lymphocyte % 34.9 %; Nucleated Red Blood Cells % 0.1
[2019-03-21 16:56] VITALS: BP 132/66
== END 2019-03-21 16:53 | disposition home or self-care (01) ==
LOC: ED 12:25
DX: R06.00 Dyspnea, unspecified (principal); R00.0 Tachycardia, unspecified; K44.9 Diaphragmatic hernia without obstruction or gangrene; E07.9 Disorder of thyroid, unspecified; E78.00 Pure hypercholesterolemia, unspecified; I10 Essential (primary) hypertension; K21.9 Gastro-esophageal reflux disease without esophagitis; N40.0 Benign prostatic hyperplasia without lower urinary tract symptoms; R62.50 Unspecified lack of expected normal physiological development in childhood; Z86.73 Personal history of transient ischemic attack (TIA), and cerebral infarction without residual deficits; F41.9 Anxiety disorder, unspecified; Z85.828 Personal history of other malignant neoplasm of skin; Z87.891 Personal history of nicotine dependence; Z79.899 Other long term (current) drug therapy; Z88.5 Allergy status to narcotic agent; Z88.8 Allergy status to other drugs, medicaments and biological substances
CPT/HCPCS: 36415; 71046; 80053; 83605; 83880; 84484; 85025; 85610; 86140; 93005; 99283

== ENCOUNTER 2019-06-25 15:09 | Emergency (ER) | payer MEDICARE, MEDICAID ==
--- NOTE | 2019-06-25 15:13 | ED ---
Shortness of Breath - HPI Summary HPI Summary: The patient is a 73 y/o M arriving by ambulance to [facility] with a chief complaint of SOB and weakness for the last two days. . He endorses CP with the SOB. Symptoms rated 8/10 in severity. He denies fevers and edema. He saw his PCP who noticed that he had a 3lb weight gain over the last 5 days, but patient states this is normal for him. EMS reports tachycardia at 100-110s bpm. DVT history without blood thinners. Currently on Lasix. PMHx: angina, HLD, HTN, PVD, GERD, BPH, arthritis. Former smoker, no EtOH, no substance use. Medications reviewed. Allergies noted. - History of Current Complaint Hx Obtained From: Patient, EMS Onset/Duration: Gradual Onset, Still Present Current Severity: Moderate Dyspnea At: Rest Aggravating Factors: Nothing Alleviating Factors: Nothing Associated Signs & Symptoms: Chest Pain Unrelated to Cough - related to SOB but no cough - Allergy/Home Medications Allergies/Adverse Reactions: Allergies Allergy/AdvReac Type Severity Reaction Status Date / Time codeine AdvReac headache, Verified 02/26/19 14:00 nausea colesevelam [From WelChol] AdvReac Muscle Ache Verified 02/26/19 14:00 meclizine AdvReac Nausea Verified 02/26/19 14:00 oxycodone AdvReac Nausea Verified 02/26/19 14:00 PMH/Surg Hx/FS Hx/Imm Hx Endocrine/Hematology History: Reports: Hx Anticoagulant Therapy, Hx Thyroid Disease Denies: Hx Diabetes Cardiovascular History: Reports: Hx Angina, 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, Hx Hypercholesterolemia, Hx Hypertension, Hx Peripheral Vascular Disease, Other Cardiovascular Problems/Disorders - CHRONIC TACHYCARDIA Denies: Hx Angioplasty, Hx Congestive Heart Failure, Hx Embolism, Hx Pacemaker/ICD Respiratory History: Reports: Other Respiratory Problems/Disorders - chronic cough Denies: Hx Asthma, Hx Chronic Obstructive Pulmonary Disease (COPD), Hx Lung Cancer, Hx Pleural Effusion, Hx Pulmonary Edema, Hx Pulmonary Embolism, Hx Seasonal Allergies, Hx Sleep Apnea GI History: Reports: Hx Gastroesophageal Reflux Disease, Hx Hiatal Hernia, Other GI Disorders Denies: Hx Irritable Bowel History: Reports: Hx Benign Prostatic Hyperplasia, Other Problems/ Disorders - [place] Denies: Hx Dialysis, Hx Kidney Infection, Hx Kidney Stones, Hx Renal Disease Musculoskeletal History: Reports: Hx Arthritis, Hx Back Problems Sensory History: Reports: Hx Contacts or Glasses, Hx Eye Injury Denies: Hx Cataracts, Hx Glaucoma, Hx Hearing Aid Opthamlomology History: Reports: Hx Contacts or Glasses, Hx Eye Injury Denies: Hx Cataracts, Hx Glaucoma Neurological History: Reports: Hx Developmental Delay, Hx Headaches, Hx Transient Ischemic Attacks (TIA), Other Neuro Impairments/Disorders - speech impediment Denies: Hx Migraine, Hx Seizures, Hx Spinal Cord Injury Psychiatric History: Reports: Hx Anxiety, Other Psychiatric Issues/Disorders Denies: Hx Depression, Hx Panic Disorder - Cancer History Cancer Type, Location and Year: Skin cancer 1999 - Surgical History Surgery Procedure, Year, and Place: None - Immunization History Date of Tetanus Vaccine: up to date Date of Influenza Vaccine: utd Infectious Disease History: Denies: Hx of Known/Suspected MRSA - Family History Known Family History: Positive: Cardiac Disease, Hypertension Negative: Diabetes - Social History Alcohol Use: None Hx Substance Use: No Substance Use Type: Reports: None Hx Tobacco Use: Yes Smoking Status (MU): Former Smoker Type: Cigarettes Have You Smoked in the Last Year: No Review of Systems Negative: Fever Positive: Chest Pain - with SOB Positive: Shortness Of Breath Negative: Edema Positive: Weakness All Other Systems Reviewed And Are Negative: Yes Physical Exam - Summary Physical Exam Summary: Constitutional: Well-developed, Well-nourished, Alert. (-) Distressed Skin: Warm, Dry HENT: Normocephalic; Atraumatic Eyes: Conjunctiva normal Neck: Musculoskeletal ROM normal neck. (-) JVD, (-) Stridor, (-) Tracheal deviation Cardio: Rhythm regular, rate normal, Heart sounds normal; Intact distal pulses; Radial pulses are 2+ and symmetric. (-) Murmur Pulmonary/Chest wall: Effort normal. Speaking in full sentences. (-) Respiratory distress, (-) Wheezes, (-) Rales Abd: Soft, (-) tenderness, (-) Distension, (-) Guarding, (-) Rebound Musculoskeletal: (-) Edema Lymph: (-) Cervical adenopathy Neuro: Alert, Oriented x3 Psych: Mood and affect Normal Triage Information Reviewed: Yes Vital Signs Reviewed: Yes Procedures - Sedation Patient Received Moderate/Deep Sedation with Procedure: No Diagnostics - Laboratory Result Diagrams: 06/25/19 15:28 06/25/19 15:28 Lab Statement: Any lab studies that have been ordered have been reviewed, and results considered in the medical decision making process. - Radiology CXR Radiology Interpretation Completed By: Radiologist Summary of Radiographic Findings: Impression: Low lung volumes. Hiatal hernia. No active cardiopulmonary disease. ED physician has reviewed this imaging report. - CT Chest/Thorax CTA CT Interpretation Completed By: Radiologist Summary of CT Findings: Impression: 1. No pulmonary embolus. 2. Low lung volumes with elevated right hemidiaphragm and a large left hiatal hernia (the stomach is entirely within the thorax). 3. Bibasilar compressive atelectasis suspected (aspiration could have a similar appearance). 4. Coronary artery disease. 5. Aortic valve calcification. 6. Midthoracic spine compression fractures unchanged from February 2019. ED physician has reviewed this imaging report. - EKG 1528 Cardiac Rate: NL - 99 bpm EKG Rhythm: Sinus Rhythm EKG Comparison: No Significant Change - Unchanged from 03/21/19 Summary of EKG Findings: An EKG at 1528 reveals normal sinus rhythm at 99 bpm. No STEMI. ED physician has reviewed and interpreted this EKG. Re-Evaluation - Re-Evaluation First Eval Re-Evaluation Time: 18:10 Change: Improved Comment: We discussed results and plan for discharge. Course/Dx - Course Course Of Treatment: Patient is here generalized weakness and shortness of breath. Patient does have a history of heart failure but showed no evidence of fluid overload on physical exam or blood work. Patient had negative chest x- ray for any edema. Patient had an EKG which showed no changes from prior. Patient normal troponin. Patient had a CTA for PE which was negative for any acute changes. Patient does have a large hiatal hernia which could be causing shortness of breath but he states he's had this for years. Patient had no emergent conditions so he was discharged. - Diagnoses Provider Diagnoses: Weakness, SOB (shortness of breath) Discharge ED - Sign-Out/Discharge Documenting (check all that apply): Patient Departure - Patient will be discharged home. - Discharge Plan Condition: Stable Disposition: HOME Patient Education Materials: Weakness (ED), Shortness of Breath (ED) Referrals: Marilu Garcia DO [Primary Care Provider] - 3 Days Additional Instructions: Your results do not show any worsening heart failure, blood clots, or pneumonia. Follow up with your primary care provider in 1-3 days. Return to the emergency department for any new or worsening symptoms. - Billing Disposition and Condition Condition: STABLE Disposition: Home - Attestation Statements Document Initiated by Mary Beth: Yes Documenting Scribe: Romelia Shaffer Provider For Whom Mary Beth is Documenting (Include Credential): Dr. Saw Busby MD Scribe Attestation: IRomelia, scribed for Dr. Saw Busby MD on 06/25/19 at 2110. Scribe Documentation Reviewed: Yes Provider Attestation: The documentation as recorded by the Romelia turner accurately reflects the service I personally performed and the decisions made by me, Dr. Saw Busby MD Status of Scribe Document: Viewed
[2019-06-25 15:43] LABS: Hematocrit 41 % (42-52); Hemoglobin 14.2 g/dL (14.0-18.0); Mean Corpuscular HGB Conc 35 g/dL (31-36); Mean Corpuscular Hemoglobin 33 pg (27-31); Mean Corpuscular Volume 94 fL (80-94); Mean Platelet Volume 5.5 fL (7.4-10.4); Platelet Count 189 10^3/uL (150-450); Red Blood Count 4.34 10^6 /uL (4.18-5.48); Red Cell Distribution Width 14 % (10-15); White Blood Count 9.7 10^3/uL (3.5-10.8)
[2019-06-25 16:03] LABS: Troponin I 0.01 ng/mL (<0.03)
[2019-06-25 16:05] LABS: Albumin 3.6 g/dL (3.2-5.2); Albumin/Globulin Ratio 1.3 (1-3); BUN/Creatinine Ratio 24.7 (8-20); Calcium 8.8 mg/dL (8.6-10.3); EGFR African American 120.5 (>60); EGFR Non-African American 99.6 (>60); Globulin 2.7 g/dL (2-4); Potassium 4.2 mmol/L (3.5-5.0); Total Bilirubin 0.4 mg/dL (0.2-1.0); Total Protein 6.3 g/dL (6.4-8.9)
[2019-06-25] MEDS ORDERED: Iohexol 350* (CONTRAST) 500 ML MDV IV ONE (16:22)
[2019-06-25 16:57] LABS: ABS Basophils 0.1 10^3/ul (0-0.2); ABS Eosinophils 0.1 10^3/ul (0-0.6); ABS Lymphocytes 1.8 10^3/ul (1.0-4.8); ABS Neutrophils 6.6 10^3/ul (1.5-7.7); Eosinophil % 0.7 %; Lymphocyte % 18.9 %; Nucleated Red Blood Cells % 0.1
[2019-06-25 18:34] VITALS: BP 141/99
== END 2019-06-25 18:38 | disposition home or self-care (01) ==
LOC: ED 15:09
DX: R06.02 Shortness of breath (principal); R53.1 Weakness; K44.9 Diaphragmatic hernia without obstruction or gangrene; E07.9 Disorder of thyroid, unspecified; E78.00 Pure hypercholesterolemia, unspecified; I10 Essential (primary) hypertension; I25.10 Atherosclerotic heart disease of native coronary artery without angina pectoris; K21.9 Gastro-esophageal reflux disease without esophagitis; N40.0 Benign prostatic hyperplasia without lower urinary tract symptoms; R62.50 Unspecified lack of expected normal physiological development in childhood; F41.9 Anxiety disorder, unspecified; Z87.891 Personal history of nicotine dependence; Z88.5 Allergy status to narcotic agent; Z88.8 Allergy status to other drugs, medicaments and biological substances
CPT/HCPCS: 36415; 71045; 71275; 80053; 83880; 84484; 85025; 85379; 93005; 99282; Q9967

== ENCOUNTER 2019-07-11 12:09 | Inpatient (IN) | payer MEDICARE, MEDICAID ==
--- NOTE | 2019-07-11 12:26 | ED ---
HPI Chest Pain - HPI Summary HPI Summary: Patient is a 73 y/o M presenting to the ED via EMS for a chief complaint of diffuse intermittent chest pain that began 2 weeks ago and worsened on . Patient is arriving from Dr. Elder office for a follow-up after being seen at [facility] on 06/25/19 for chest discomfort. Patient describes the chest pain as a warm sensation that worsens with deep breaths. He also notes fatigue, dizziness, shortness of breath, cough with eating, and generalized weakness for the last 3-4 weeks. Patient denies diaphoresis. He denies any alleviating factors. Patient believes he is having a heart attack. PMHx is significant for arthritis, ulcerative colitis, HTN, hypothyroidism, anxiety, and hernia. He denies a history of OR or COPD. He is a resident at [facility]. - History of Current Complaint Time Seen by Provider: 07/11/19 12:10 Hx Obtained From: Patient Onset/Duration: Started Minutes Ago, Atraumatic, Still Present Timing: Intermittent, Lasting Weeks - 2 weeks Initial Severity: Mild Current Severity: Mild Pain Intensity: 0 Pain Scale Used: 0-10 Numeric Chest Pain Location: Diffuse Chest Pain Radiates: No Character: Other: - Warm sensation Aggravating Factor(s): Deep Breaths Alleviating Factor(s): Nothing Associated Signs and Symptoms: Positive: Chest Pain, Weakness - Generalized, Dizziness, Shortness of Breath, Cough, Other: - Positive fatigue. Negative: Diaphoresis - Additional Pertinent History Primary Care Physician: [id number] - Allergy/Home Medications Allergies/Adverse Reactions: Allergies Allergy/AdvReac Type Severity Reaction Status Date / Time codeine AdvReac headache, Verified 02/26/19 14:00 nausea colesevelam [From WelChol] AdvReac Muscle Ache Verified 02/26/19 14:00 meclizine AdvReac Nausea Verified 02/26/19 14:00 oxycodone AdvReac Nausea Verified 02/26/19 14:00 Home Medications: Home Medications Cyanocobalamin TAB* [Vitamin B12 TAB*] 250 mcg PO DAILY 07/11/19 [History Confirmed 07/11/19] Famotidine TAB 40 MG(NF) [Pepcid TAB 40 MG(NF)] 40 mg PO BEDTIME 07/11/19 [ History Confirmed 07/11/19] Ketoconazole 1 applic TOPICAL BR[place]KE 07/11/19 [History Confirmed 07/11/19] Losartan TAB* [Cozaar TAB*] 25 mg PO DAILY 07/11/19 [History Confirmed 07/11/19] PMH/Surg Hx/FS Hx/Imm Hx Previously Healthy: Yes Endocrine/Hematology History: Reports: Hx Anticoagulant Therapy, Hx Thyroid Disease Denies: Hx Diabetes Cardiovascular History: Reports: Hx Angina, 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, Hx Hypercholesterolemia, Hx Hypertension, Hx Peripheral Vascular Disease, Other Cardiovascular Problems/Disorders - CHRONIC TACHYCARDIA Denies: Hx Angioplasty, Hx Congestive Heart Failure, Hx Embolism, Hx Pacemaker/ICD Respiratory History: Reports: Other Respiratory Problems/Disorders - chronic cough Denies: Hx Asthma, Hx Chronic Obstructive Pulmonary Disease (COPD), Hx Lung Cancer, Hx Pleural Effusion, Hx Pulmonary Edema, Hx Pulmonary Embolism, Hx Seasonal Allergies, Hx Sleep Apnea GI History: Reports: Hx Gastroesophageal Reflux Disease, Hx Hiatal Hernia, Other GI Disorders Denies: Hx Irritable Bowel History: Reports: Hx Benign Prostatic Hyperplasia, Other Problems/ Disorders - [place] Denies: Hx Dialysis, Hx Kidney Infection, Hx Kidney Stones, Hx Renal Disease Musculoskeletal History: Reports: Hx Arthritis, Hx Back Problems Sensory History: Reports: Hx Contacts or Glasses, Hx Eye Injury Denies: Hx Cataracts, Hx Glaucoma, Hx Legally Blind, Hx Deafness, Hx Hearing Aid Opthamlomology History: Reports: Hx Contacts or Glasses, Hx Eye Injury Denies: Hx Cataracts, Hx Glaucoma, Hx Legally Blind EENT History: Denies: Hx Deafness Neurological History: Reports: Hx Developmental Delay, Hx Headaches, Hx Transient Ischemic Attacks (TIA), Other Neuro Impairments/Disorders - speech impediment Denies: Hx Migraine, Hx Seizures, Hx Spinal Cord Injury Psychiatric History: Reports: Hx Anxiety, Other Psychiatric Issues/Disorders Denies: Hx Depression, Hx Panic Disorder - Cancer History Cancer Type, Location and Year: Skin cancer 1999 - Surgical History Surgical History: None Surgery Procedure, Year, and Place: None - Immunization History Date of Tetanus Vaccine: up to date Date of Influenza Vaccine: utd Infectious Disease History: No Infectious Disease History: Denies: Hx of Known/Suspected MRSA, Traveled Outside the [place] in Last 30 Days - Family History Known Family History: Positive: Cardiac Disease, Hypertension Negative: Diabetes - Social History Occupation: Retired Lives: [facility] [employer] Alcohol Use: None Hx Substance Use: No Substance Use Type: Reports: None Hx Tobacco Use: Yes Smoking Status (MU): Former Smoker Type: Cigarettes Have You Smoked in the Last Year: No Review of Systems Positive: Fatigue. Negative: Skin Diaphoresis Positive: Chest Pain - Diffuse Positive: Shortness Of Breath, Cough Neurological: Other - Positive dizziness Positive: Weakness - Generalized All Other Systems Reviewed And Are Negative: Yes Physical Exam - Summary Physical Exam Summary: Constitutional: Well-developed, Well-nourished, Alert. (-) Distressed Skin: Warm, Dry HENT: Normocephalic; Atraumatic Eyes: Conjunctiva normal Neck: Musculoskeletal ROM normal neck. (-) JVD, (-) Stridor, (-) Nuchal rigidity Cardio: Rhythm regular, rate normal, Heart sounds normal; Intact distal pulses; Radial pulses are 2+ and symmetric. (-) Murmur Pulmonary/Chest wall: (-) Respiratory distress, (-) Wheezes, (-) Rales. Tachypneic. Abd: Soft, (-) tenderness, (-) Distension, (-) Guarding, (-) Rebound Musculoskeletal: (-) Edema. 2+ DP pulses. Lymph: (-) Cervical adenopathy Neuro: Alert, Oriented x3 Psych: Mood and affect Normal. Appears anxious. Triage Information Reviewed: Yes Vital Signs On Initial Exam: Initial Vitals Temp Pulse Resp BP Pulse Ox 97.1 F 107 13 144/99 93 07/11/19 12:15 07/11/19 12:15 07/11/19 12:15 07/11/19 12:15 07/11/19 12:15 Vital Signs Reviewed: Yes Procedures - Sedation Patient Received Moderate/Deep Sedation with Procedure: No Diagnostics - Vital Signs Vital Signs Temp Pulse Resp BP Pulse Ox 07/11/19 12:15 97.1 F 107 13 144/99 93 - Laboratory Result Diagrams: 07/11/19 12:29 07/11/19 12:29 Lab Statement: Any lab studies that have been ordered have been reviewed, and results considered in the medical decision making process. - Radiology Chest X-ray Radiology Interpretation Completed By: Radiologist Summary of Radiographic Findings: Chest X-ray IMPRESSION: 1. Low lung volumes. Left lower lung zone airspace opacification is likely related to atelectasis. Infiltrate can have a similar appearance. 2. Large hiatal hernia redemonstrated. Reviewed by Dr. Bhakta. - EKG 12:31 Cardiac Rate: Tachycardia - 101 BPM EKG Rhythm: Sinus Tachycardia ST Segment: Normal Ectopy: None EKG Comparison: No Significant Change - From 06/25/19 Summary of EKG Findings: An EKG at 12:31 reveals sinus tachycardia with 101 BPM , T wave inversion in V1, nml axis, nml intervals. No STEMI. No acute changes. Compared to 06/25/19, no significant change. Reviewed and interpreted by Dr. Bhakta. 15:21 Cardiac Rate: NL - 94 BPM EKG Rhythm: Sinus Rhythm ST Segment: Normal Ectopy: None EKG Comparison: No Significant Change Summary of EKG Findings: An EKG at 12:31 reveals normal sinus rhythm with 94 BPM , T wave inversion in V1, nml axis, nml intervals. No STEMI. No acute changes. Compared to 06/25/19, no significant change. Reviewed and interpreted by Dr. Bhakta. Chest Pain Course/Dx - Course Course Of Treatment: 73 y/o male w hx HTN, recent workup for SOB p/w SOB, CP worsening over 2 weeks. -VS mild tachycardia, 94% on RA. Placed on O2 for comfort, does dip down to 89% when resting. -Lungs CTAB. Hx hiatal hernia. Recent CTA w/o dissection or PE. - regarding ACS, troponin negative x1, EKG unchanged. Still reporting CP, dyspnea and fatigue. Will d/w hospitalist for observation, serial troponins given risk factors for cardiac disease. - possible LLL infiltrate on CXR. Will treat given that he is symptomatic. - suspect that some of his symptoms may be due to hernia/mass effect - Diagnoses Provider Diagnoses: Pneumonia, Fatigue, Shortness of breath - Provider Notifications Discussed Care Of Patient With: Eve Clay - At 13:53, patients case was reviewed by Dr. Eve Clay who agrees to admit the patient with a diagnosis of shortness of breath, fatigue, and pneumonia. Time Discussed With Above Provider: 13:53 Instructed by Provider To: Admit As Inpatient Discharge ED - Sign-Out/Discharge Documenting (check all that apply): Patient Departure - Admit - Discharge Plan Condition: Stable Disposition: ADMITTED TO [facility] Referrals: Marilu Garcia DO [Primary Care Provider] - - Billing Disposition and Condition Condition: STABLE Disposition: Admitted to [facility] - Attestation Statements Document Initiated by Mary Beth: Yes Documenting Scribe: Ligia King Provider For Whom Mary Beth is Documenting (Include Credential): Jean Carlos Bhakta MD Scribe Attestation: ILigia, scribed for Jean Carlos Bhakta MD on 07/11/19 at 1559. Scribe Documentation Reviewed: Yes Provider Attestation: The documentation as recorded by the Ligia turner accurately reflects the service I personally performed and the decisions made by , Jean Carlos Bhakta MD Status of Scribe Document: Viewed
[2019-07-11 12:56] LABS: Hematocrit 42 % (42-52); Hemoglobin 14.6 g/dL (14.0-18.0); Mean Corpuscular HGB Conc 35 g/dL (31-36); Mean Corpuscular Hemoglobin 33 pg (27-31); Mean Corpuscular Volume 93 fL (80-94); Mean Platelet Volume 5.9 fL (7.4-10.4); Platelet Count 217 10^3/uL (150-450); Red Blood Count 4.45 10^6 /uL (4.18-5.48); Red Cell Distribution Width 14 % (10-15); White Blood Count 10.7 10^3/uL (3.5-10.8)
[2019-07-11] MEDS ORDERED: Aspirin 81 mg CHEW TAB* 81 MG TAB.CHEW PO ONE (12:59)
--- OUTSIDE RECORDS SUMMARY | 2019-07-11 13:04 | XMS REPORT | Continuity of Care Document ---
:1945 External Reference #:[id number] Author Name Arturo Posadas MD (transmitted by agent of provider Bhavna Bethea) Address [address] [place] [address] Care Team Providers Name Role Phone Srinivas Joel MD - Physical Care Team Information Food General Manager Medicine & Rehabilitation Marilu Garcia DO - Primary Care Care Team Information Food General Manager Problems Active Problems Provider Date Diaphragmatic hernia Ofelia Guillen NP Onset: 12/11/2018 Note: large - medical regime has varied much - see Tachycardia Annamaria Moreno M.D. Onset: 07/22/2012 Note: Referred by Dr. Patel to Dr Vanegas for tachycardia and annual follow- up through October 2018 is not determined any specific structural disease requiring intervention Mixed hyperlipidemia Annamaria Moreno M.D. Onset: 07/22/2012 Benign essential hypertension Annamaria Moreno M.D. Onset: 07/22/2012 Localized, primary osteoarthritis of Ted Núñez M.D. Onset: 01/27/2015 the shoulder region Localized, primary osteoarthritis of Sal Ramon MD Onset: 08/03/2017 the ankle and/or foot Cough Ofelia Guillen NP Onset: 12/11/2018 Constipation Ofelia Guillen NP Onset: 12/11/2018 Chronic anxiety Donna Vargas MD Onset: 02/23/1989 Note: see 02/21/19 note and pattern of ER visits Iron deficiency anemia Donna Vargas MD Onset: 11/13/2013 Note: CBC this date Hg 10.8 MCV78 ferritin 15; December 2017 Hg 12.7 MCV 93; February 2019 Hg 14.4 MCV 96 Vit B12 527 November 2018 Closed fracture of lumbar vertebra without Arturo Josie Posadas MD Onset: 08/2019 spinal cord injury Social History Type Date Description Comments Sex Unknown ETOH Use Denies alcohol use Tobacco Use Start: Unknown End: Patient is a former quite years ago, Unknown smoker 1973, prior to that, off and on smoker for 10 years Recreational Drug Use Denies Drug Use Smoking Status Reviewed: 07/10/19 Patient is a former quite years ago, smoker 1973, prior to that, off and on smoker for 10 years Exercise Type/Frequency Exercises regularly Allergies, Adverse Reactions, Alerts Active Allergies Reaction Severity Comments Date Codeine headache, nausea 11/03/2004 Welchol aches 03/24/2005 Ibuprofen 01/27/2015 Morphine 01/27/2015 Rosuvastatin Calcium 02/23/2017 Latex 02/23/2017 Rosuvastatin Calcium 02/23/2017 Medications Active Medications SIG Qnty Indications Ordering Date Provider Pantoprazole Sodium take as directed 30 30tabs Ofelia Guillen, 11/13/2018 40mg minutes prior to [employer] Tablets DR meal once a day Buspirone HCL Take 20 mg by mouth Shantal 03/04/2018 10mg three times daily [place], [employer] SAL[employer] Tablets Cyanocobalamin oral 250 mcg Unknown Zoloft 2 by mouth every Unknown 25mg Tablets morning Proscar 1 by mouth every Unknown 5mg [...] by mouth twice a Unknown ER day 50mg Tablets ER 24HR Atorvastatin Calcium 1 by mouth every Unknown 40mg day Tablets Simethicone Extra one by mouth four Unknown Strength times a day as 125mg Capsules needed Tylenol Extra Strength 1-2 tabs by mouth Unknown every 6 hours as 500mg Tablets needed Senexon-S one to two tablets Unknown 8.6-50mg as needed for Tablets constipation Gabapentin 1 by mouth three Unknown 300mg Capsules times a day Ativan Take 0.5 mg (1/2 Unknown 1mg [...] by mouth bid Unknown 325(65Fe) mg Tablets Medications Administered in Office Medication SIG Qnty Indications Ordering Provider Date Triamcinolone (Kenalog) Fady Jara MD 05/29/2019 Injection Triamcinolone (Kenalog) Fady Jara MD 05/29/2019 Injection Triamcinolone (Kenalog) Fady Jara MD 04/01/2019 Injection Triamcinolone (Kenalog) Fady Jara MD 04/01/2019 Injection Depomedrol 40MG Ewelina Salvador M.D. 02/17/2019 [...] (Kenalog) Fady Jara MD 06/18/2018 Injection Triamcinolone (Kenalog) Fady Jara MD 06/18/2018 Injection Depomedrol 40MG Ewelina Salvador M.D. 01/03/2018 Injection Triamcinolone (Kenalog) Fady Jara MD 12/27/2017 Injection Triamcinolone (Jordyalog) Fady Jara MD 12/27/2017 Injection Technetium TC 99M Annamaria Moreno, 09/27/2017 Tetrofosmin, Per Unit Dose Up M.D. To 40 Millicuries Injection Triamcinolone (Jordyalog) Fady Jara MD 08/28/2017 Injection Triamcinolone (Kenalog) Fady Jara MD 08/28/2017 Injection Triamcinolone (Kenalog) Fady Jara MD 05/29/2017 Injection Triamcinolone (Jordyalog) Fady Jara MD 05/29/2017 Injection Triamcinolone (Jordyalog) Fady Jara MD 02/23/2017 Injection Triamcinolone (Kenalog) [...] Available Vital Signs Date Vital Result Comment 07/10/2019 9:23am Height 70 inches 5'10" Weight 210.00 lb Heart Rate 100 /min BP Systolic 124 mmHg BP Diastolic 80 mmHg Respiratory Rate 14 /min Body Temperature 97.3 F Pain Level 7 BMI (Body Mass Index) 30.1 kg/m2 05/29/2019 9:50am Height 70 inches 5'10" Weight 200.00 lb Heart Rate 96 /min BP Systolic 152 mmHg BP Diastolic 86 mmHg Respiratory Rate 18 /min Body Temperature 98.1 F Pain Level 8 BMI (Body Mass Index) 28.7 kg/m2 Results Test Acquired Date Facility Test Result H/L Range Note Laboratory test 04/02/2019 [facility] Surgical SEE RESULT [address] Pathology BELOW [place] [id number] [phone] 1 SEE RESULT BELOW Name: DONNA WHITFIELD : [address]: Donna Vargas MD Acct: [id number] Unit: [id number] AGE: 73 Location: [facility] Re04/02/19 SEX: M Status: REG REF SPEC: [id number] SEAN: 04/02/[address] [facility] [address]: Donna Vargas MD REQ: [id number] RECD: 04/02/19 STATUS: YODIT ALEMAN DR: Marilu Garcia DO _ ORDERED: LEVEL 4/11 FINAL DIAGNOSIS 1. Colon, ileocecal valve, biopsy: -- Tubular adenoma. -- No high grade dysplasia or malignancy. 2. Colon, mid right, biopsy: -- Tubular adenoma. -- No high grade dysplasia or malignancy. 3. Colon, ileocecal valve, biopsy: -- Tubular adenoma. -- No high grade dysplasia or malignancy. 4. Colon, cecal cap, biopsy: -- Tubular adenoma. -- No high grade dysplasia or malignancy. 5. Colon, distal right, biopsy: -- Tubular adenoma. -- No high grade dysplasia or malignancy. 6. Colon, mid transverse, biopsy: -- Tubular adenoma. -- No high grade dysplasia or malignancy. 7. Colon, distal transverse, biopsy: -- Tubular adenoma. -- No high grade dysplasia or malignancy. 8. Colon, descending, biopsy: -- Tubular adenoma. -- No high grade dysplasia or malignancy. 9. Colon, proximal sigmoid, biopsy: -- Tubular adenoma. -- No high grade dysplasia or malignancy. 10. Colon, mid sigmoid, biopsy: -- Tubular adenoma. -- No high grade dysplasia or malignancy. CONTINUED ON NEXT PAGE DEPARTMENT OF PATHOLOGY, [address] [place] [address] Philip Stone M.D. Director [facility] # [id number] 11. Colon, distal sigmoid, biopsy: -- Tubular adenoma. -- No high grade dysplasia or malignancy. CLINICAL HISTORY Screening/Surveillance for malignancy in asymptomatic patient; gastroesophageal reflux disease; cough POST-OPERATIVE DIAGNOSIS EGD; larynx ??? not seen; esophagus ??? veins unknown; esophagogastric 38 cm ; large hiatal hernia; folded; stomach ??? difficult pylorus ??? normal; erythema; duodenum ??? normal x 35 cm; colonoscopy: 13 polyp (3 hot) diverticulosis; left greater than right; poor prep; conclusions: hiatal hernia confined; diverticulosis; 13 polyps GROSS DESCRIPTION 1. The specimen is received in formalin labeled, Ileocecal Polyps, and consists of a 0.9 x 0.5 by up to 0.3 cm aggregate of musa-pink irregular to polypoid soft tissue fragments which is submitted entirely in one cassette. 2. The specimen is received in formalin labeled, Mid Right Colon Polyp, and consists of a 0.5 x 0.4 by up to 0.2 cm aggregate of musa-pink irregular to polypoid soft tissue fragments which is submitted entirely in one cassette. 3. The specimen is received in formalin labeled, Ileocecal Polyp #2, and consists of a 0.6 x 0.4 x 0.2 cm aggregate of musa irregular soft tissue fragments which is submitted entirely in one cassette. 4. The specimen is received in formalin labeled, Cecal Cap Polyp, and consists of a 0.5 x 0.4 x 0.1 cm aggregate of musa-pink irregular soft tissue fragments admixed with organic debris. Entirely submitted, one cassette. 5. The specimen is received in formalin labeled, Distal Right Colon Polyp, and consists of a 0.6 x 0.5 x 0.2 cm aggregate of musa-white to red irregular to polypoid soft tissue fragments which is submitted entirely in one cassette. 6. The specimen is received in formalin labeled, Mid Transverse Colon Polyp , and consists of a 0.6 x 0.5 by up to 0.3 cm aggregate of musa-red irregular soft tissue fragments which is submitted entirely in one cassette. 7. The specimen is received in formalin labeled, Distal Transverse Colon Polyp, and consists of a 1.3 x 0.7 by up to 0.4 cm aggregate of musa-red irregular to polypoid soft tissue fragments which is submitted entirely in one cassette. CONTINUED ON NEXT PAGE DEPARTMENT OF PATHOLOGY, [address] [place] [address] Philip Stone M.D. Director [facility] # [id number] 8. The specimen is received in formalin labeled, Descending Colon Polyp, and consists of a 0.8 x 0.8 x 0.3 cm aggregate of musa-red irregular to polypoid soft tissue fragments which is submitted entirely in one cassette. 9. The specimen is received in formalin labeled, Proximal Sigmoid Polyp, and consists of two musa-white to red irregular to polypoid soft tissue fragments measuring 0.3 x 0.2 x 0.2 cm and 0.4 x 0.3 by up to 0.2 cm which are submitted entirely in one cassette. 10. The specimen is received in formalin labeled, Mid Sigmoid Polyp, and consists of three musa-pink irregular to polypoid soft tissue fragments aggregating 0.6 x 0.5 x 0.2 cm which are submitted entirely in one cassette. 11. The specimen is received in formalin labeled, Distal Sigmoid Polyp, and consists of a 0.8 x 0.5 x 0.3 cm aggregate of musa irregular to polypoid soft tissue fragments which is submitted entirely in one cassette. Signed by and Reported on: Ariella Cardoso MD 04/03/19 1204 END OF REPORT DEPARTMENT OF PATHOLOGY, [address] [place] [address] Philip Stone M.D. Director [facility] # [id number] Procedures Date Code Description Status 05/29/2019 Inject/Drain Joint/Bursa Major W/O US Completed 05/14/2019 Injection, Carpal Tunnel Completed 04/02/2019 18928 Colonoscopy Flexible Remove Tumor/Polyp/Lesion Snare Completed Technique 04/02/2019 43257 Esophagogastroduodenoscopy, diagnostic, incl brush/wash Completed if perfor 04/01/2019 Inject/Drain Joint/Bursa Major W/O US Completed 02/17/2019 Injection, Carpal Tunnel Completed 10/16/2017 [id number] Colonoscopy Completed 02/20/2011 [id number] Colonoscopy Completed Medical Devices Description No Information Available Encounters Type Date Location Provider Dx Diagnosis Office Visit 07/10/2019 [facility] Arturo F S32.000A Wedge compression 9:15a at Jean Claude Posaads MD fracture of unsp lumbar vertebra, init [facility] Shortness of 9:00a [place] Pereira breath R53.1 Weakness R60.0 Localized edema F41.9 Anxiety disorder, unspecified Office Visit 05/23/2019 8:30a [facility] Marilu Jose, R00.0 Tachycardia, D.O. unspecified Office Visit 05/20/2019 8:00a [facility] Marilu Jose, R00.0 Tachycardia, D.O. unspecified I10 Essential (primary) hypertension F41.9 Anxiety disorder, unspecified G25.81 Restless legs syndrome Office 04/24/2019 [facility] Gastroenterology Donna Barker K21.9 Gastro-esophageal Visit 11:30a MD Sam reflux disease without esophagitis D12.3 Benign neoplasm of transverse colon D12.0 Benign neoplasm of cecum K44.9 Diaphragmatic hernia without obstruction or gangrene Office Visit 04/14/2019 8:[facility], M25.512 Pain in left [employer] SALES [employer] shoulder Office Visit 03/24/2019 8:45a [facility], J06.9 Acute upper [employer] SAL[employer] respiratory infection, unspecified J20.9 Acute bronchitis, unspecified K21.9 Gastro-esophageal reflux disease without esophagitis I10 Essential (primary) hypertension F41.9 Anxiety disorder, unspecified G25.81 Restless legs syndrome N40.1 Benign prostatic hyperplasia with lower urinary tract symp Office 03/14/2019 [facility] Juliette B37.9 Candidiasis, Visit 8:15a MANUEL Martin unspecified Office 03/03/2019 [facility] Shantal L03.113 Cellulitis of Visit 9:30a [place] Pereira right upper limb Office 02/21/2019 [facility] Gastroenterology Donna Barker K44.9 Diaphragmatic Visit 10:30a MD Sam hernia without obstruction or gangrene K21.9 Gastro-esophageal reflux disease without esophagitis K59.00 Constipation, unspecified Z86.010 Personal history of colonic polyps R00.0 Tachycardia, unspecified I10 Essential (primary) hypertension F41.9 Anxiety disorder, unspecified Office Visit 02/17/2019 10:30a Olinda Rooneyice R06.02 Shortness of breath Sulema Garcia Office Visit 02/11/2019 2:00p Olinda Rodriguez G25.81 Restless legs Neurologic Tea Peters syndrome [facility] Office Visit 01/30/2019 10:15a Olinda Campos Marilu K44.9 Diaphragmatic Jose DCecilleO. hernia without obstruction or gangrene K59.00 Constipation, unspecified R11.0 Nausea R00.0 Tachycardia, unspecified I10 Essential (primary) hypertension K21.9 Gastro-esophageal reflux disease without esophagitis F41.9 Anxiety disorder, unspecified N40.1 Benign prostatic hyperplasia with lower urinary tract symp Assessments Date Code Description Provider 07/10/2019 S32.000A Wedge compression fracture of unspecified Arturo Josie Posadas MD lumbar vertebra, initial encounter for closed fracture 06/27/[address], [place] 06/27/2019 R06.02 Shortness of breath [address], [place] 06/27/2019 R10.[address], [place] 06/16/2019 R06.02 Shortness of breath Shantal Pereira, [place] 06/16/2019 R53.1 Weakness Shantal Pereira, [place] 06/16/2019 R60.0 Localized edema Shantal [place], [place] 06/16/2019 F41.9 Chronic anxiety Shantal [place], [place] 05/29/2019 M19.012 Primary osteoarthritis, left shoulder Fady Jara MD 05/29/2019 M19.011 Primary osteoarthritis, right shoulder Fady Jara MD 05/26/2019 F41.9 Chronic anxiety Shantal Pereira, [place] 05/23/2019 R00.0 Tachycardia, unspecified Marilu Garcia D.O. 05/20/2019 R00.0 Tachycardia, unspecified James HamptonO. 05/20/2019 I10 Essential (primary) hypertension Marilu Garcia D.O. 05/20/2019 F41.9 Chronic anxiety Marilu Garcia D.O. 05/20/2019 G25.81 Restless legs syndrome Marilu Garcia D.O. 05/14/2019 G56.03 Carpal tunnel syndrome, bilateral upper Ewelina Salvador M.D. limbs 05/14/2019 G56.02 Carpal tunnel syndrome, left upper limb Ewelina Salvador M.D. 04/24/2019 K21.9 Gastro-esophageal reflux disease without Donna Vargas MD esophagitis 04/24/2019 D12.3 Benign neoplasm of transverse colon Donna Vargas MD 04/24/2019 D12.0 Benign neoplasm of cecum Donna Vargas MD 04/24/2019 K44.9 Diaphragmatic hernia without obstruction Donna Vargas MD or gangrene 04/14/2019 M25.512 Pain in left shoulder Shantal Pereira NP 04/02/2019 Z12.11 Encounter for screening for malignant Donna Vargas MD neoplasm of colon 04/02/2019 D12.0 Benign neoplasm of cecum Donna Vargas MD 04/02/2019 D12.3 Benign neoplasm of transverse colon Donna Vargas MD 04/02/2019 K57.30 Diverticulosis of large intestine without Donna Vargas MD perforation or abscess without bleeding 04/02/2019 K21.9 Gastro-esophageal reflux disease without Donna Vargas MD esophagitis 04/02/2019 K44.9 Diaphragmatic hernia without obstruction Donna Vargas MD or gangrene 04/01/2019 M19.012 Primary osteoarthritis, left shoulder Fady Jara MD 04/01/2019 M19.011 Primary osteoarthritis, right shoulder Fady Jara MD 03/24/2019 J06.9 Acute upper respiratory infection, Shantaltommy Pereira, HOME SALES [employer]ANT unspecified 03/24/2019 J20.9 Acute bronchitis, unspecified Shantal Pereira, HOME SALES [employer]SULTANT 03/24/2019 K21.9 Gastro-esophageal reflux disease without Shantal Pereira, HOME SAL[employer] esophagitis 03/24/2019 I10 Essential (primary) hypertension Shantal Pereira, HOME SALES [employer]SULTANT 03/24/2019 F41.9 Chronic anxiety Shantal Pereira, HOME SALES [employer]ANT 03/24/2019 G25.81 Restless legs syndrome Shantal Pereira, HOME SALES [employer]SULTANT 03/24/2019 N40.1 Benign prostatic hyperplasia with lower Shantal Pereira, HOME SALES [employer]SULTANT urinary tract symptoms 03/14/2019 B37.9 Candidiasis, unspecified Juliette Mario, [place] 03/03/2019 L03.113 Cellulitis of right upper limb Shantal Pereira, HOME SALES [employer]SULTANT 02/21/2019 K44.9 Diaphragmatic hernia without obstruction Donna Vargas MD or gangrene 02/21/2019 K21.9 Gastro-esophageal reflux disease without Donna Vargas MD esophagitis 02/21/2019 K59.00 Constipation, unspecified Donna Vargas MD 02/21/2019 Z86.010 Personal history of colonic polyps Donna Vargsa MD 02/21/2019 R00.0 Tachycardia, unspecified Donna Vargas MD 02/21/2019 I10 Essential (primary) hypertension Donna Vargas MD 02/21/2019 F41.9 Chronic anxiety Donna Vargas MD 02/17/2019 G56.03 Carpal tunnel syndrome, bilateral upper Ewelina Salvador M.D. limbs 02/17/2019 R06.02 Shortness of breath Marilu Jose, D.O. 02/11/2019 G25.81 Restless legs syndrome Benny Peters M.D. 01/30/2019 K44.9 Diaphragmatic hernia without obstruction Marilu Jose, D.O. or gangrene 01/30/2019 K59.00 Constipation, unspecified Marilu Jose, D.O. 01/30/2019 R11.0 Nausea Marilu Jose, D.O. 01/30/2019 R00.0 Tachycardia, unspecified Marilu Jose, D.O. 01/30/2019 I10 Essential (primary) hypertension Marilu Jose, D.O. 01/30/2019 K21.9 Gastro-esophageal reflux disease without Marilu Jose, D.O. esophagitis 01/30/2019 F41.9 Anxiety disorder, unspecified Marilu Jose, D.O. 01/30/2019 N40.1 Benign prostatic hyperplasia with lower Marilu Garcia D.O. urinary tract symptoms Plan of Treatment Future Appointment(s):07/11/2019 11:40 am - Annamaria Moreno M.D. at [facility]/06/2020 9:45 am - Ewelina Salvador M.D. at [facility] at [id number]/24/2019 10:15 am - Donna Vargas MD at [facility] Vzrzkwughrvddkrd30/04/2020 1:45 pm - Benny Peters M.D. at [facility]07/10/2019 - Arturo Posadas, MDS32.000A Wedge compression fracture of unspecified lumbar vertebra, initial encounter for closed fractureReferral:Yeni Richter MD, Surgery,NeurologicalFollow up :Follow up: As needed for b/l Shoulder pain - Referral to spine - Follow up with primary for edema Functional Status Description No Information Available Mental Status Description No Information Available Referrals Refer to Dr Reason for Referral Status Appt Date Yeni Richter MD Created [address] [place] [id number] [phone]
--- OUTSIDE RECORDS SUMMARY | 2019-07-11 13:04 | XMS REPORT | Continuity of Care Document ---
:1945 External Reference #:[id number] Author Name Tapan Regalado M.D. Address [address] [place] [id number] Care Team Providers Name Role Phone Liam Patel M.D. 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 Onset: 06/12/2017 Esophoria Candida Ayoub O.D. Onset: 01/16/2017 Vitreous degeneration Candida Ayoub O.D. Onset: 01/16/2017 Hypertropia Candida Ayoub O.D. Onset: 12/15/2016 Presbyopia Candida Ayoub O.D. Onset: 07/27/2015 Myopia Candida Ayoub O.D. Onset: 07/27/2015 Regular astigmatism Candida Ayoub O.D. Onset: 07/27/2015 Nuclear senile cataract Candida Ayoub O.D. Onset: 07/27/2015 Retinal hemorrhage Candida Ayoub O.D. Onset: 07/27/2015 Social History Type Date Description Comments Sex Unknown ETOH Use Denies alcohol use Tobacco Use Start: Unknown End: Unknown Patient is a former smoker Recreational Drug Use Denies Drug Use Smoking Status Reviewed: 07/03/19 Patient is a former smoker Allergies, Adverse Reactions, Alerts Active Allergies Reaction Severity Comments Date Codeine 07/27/2015 Morphine 07/27/2015 Rosuvastatin Calcium 01/16/2017 Ibuprofen 06/12/2017 Medications Active Medications SIG Qnty Indications Ordering Provider Date Gavilyte-C Unknown 240gm Solution Rec Multi Complete Unknown Capsules Melatonin Unknown 5mg Capsules Constulose Unknown 10GM/15ML Solution Ferrous Gluconate Unknown 324(38Fe) mg Tablets Sertraline HCL Unknown 25mg Tablets Thioridazine HCL Unknown 50mg Tablets Levothyroxine Sodium Jose, Dsaha D.O. 125mcg Tablets Tamsulosin HCL Jose, Dasha D.O. 0.4mg Capsules Finasteride Jose, Dasha D.O. 5mg Tablets Pantoprazole Sodium Jose, Dasha D.O. 40mg Tablets DR Famotidine Jose, Dasha D.O. 40mg Tablets Ondansetron HCL Unknown 4mg Tablets Metoprolol Tartrate Unknown 100mg Tablets Losartan Potassium Senner, Roxy DO 25mg Tablets Furosemide Unknown 20mg Tablets Ketoconazole Jose, Dasha D.O. 2% Shampoo Gabapentin Jose, Dasha D.O. 300mg Capsules Cyclobenzaprine HCL Jose, Dasha D.O. 5mg Tablets Buspirone HCL Jose, Dasha D.O. 10mg Tablets Atorvastatin Calcium Unknown 40mg Tablets Lorazepam Jose, Dasha D.O. 0.5mg Tablets Immunizations Description No Information Available Vital Signs Description No Information Available Results Description No Information Available Procedures Description No Information Available Medical Devices Description No Information Available Encounters Description No Information Available Assessments Date Code Description Provider 07/03/2019 H25.13 Age-related nuclear cataract, bilateral Tapan Regalado M.D. Plan of Treatment 07/03/2019 - Tapan Regalado M.D.H25.13 Age-related nuclear cataract, bilateralComments:Smoking can increase the risk of developing or worsening any eye related disease, as well as affect your overall health. If you are a smoker , we strongly recommend that you quit.If you are not a smoker, we strongly recommend that you do not start. You have been diagnosed with cataracts. If you are happy with your vision as it is now, then we will see you at your next scheduled appointment. If you feel like your vision is getting worse before your scheduled appointment, please call Sarah at [phone].Follow up:1 Year Follow Up DFE You can expect to have your eyes dilated at your next visit. If Dr. Regalado orders any additional testing, it may require extra time. We recommend that you bring sunglasses, as dilation drops often make you light sensitive until they wear off. We always recommend you bring someone to drive you home if you are uncomfortable driving with your eyes dilated. If you have any questions before your next visit, feel free to call our office at . Functional Status Description No Information Available Mental Status Description No Information Available Referrals Description No Information Available
--- OUTSIDE RECORDS SUMMARY | 2019-07-11 13:04 | XMS REPORT | Continuity of Care Document ---
:1945 External Reference #:[id number] Author Name Ewelina Salvador M.D. (transmitted by agent of provider Shalonda Molina) Address [address] [place] [address] Care Team Providers Name Role Phone Srinivas Joel MD - Physical Care Team Information Transfer Car Operator D[facility] Marilu Garcia DO - Primary Care Care Team Information Transfer Car Operator Drier [phone] Problems Active Problems Provider Date Diaphragmatic hernia [...] MCV 96 Vit B12 527 November 2018 Social History Type Date Description Comments Sex Unknown ETOH Use Denies alcohol use Tobacco Use Start: Unknown End: Patient is a former quite years ago, Unknown smoker 1973, prior to that, off and on smoker for 10 years Recreational Drug Use Denies Drug Use Smoking Status Reviewed: 05/29/19 Patient is a former quite years ago, [...] Ofelia Guillen, 11/13/2018 40mg minutes prior to ENTERTAINMENT AGENT Tablets DR meal once a day Buspirone HCL Take 20 mg by mouth Shantal 03/04/2018 10mg three times daily Randall ENTERTAINMENT AGENT Tablets Zoloft 2 by mouth every Unknown 25mg [...] 40MG Ewelina Salvador M.D. 06/20/2018 Injection Triamcinolone (Alan) Fady Jara MD 06/18/2018 Injection Triamcinolone (Jordyalog) Fady Jara MD 06/18/2018 Injection Depomedrol 40MG Ewelina Salvador M.D. 01/03/2018 Injection Triamcinolone (Jordyalog) Fady Jara MD 12/27/2017 Injection Triamcinolone (Jordyalog) Fady Jara MD 12/27/2017 Injection Technetium TC 99M Annamaria HolmanCecille Tiffanie, 09/27/2017 Tetrofosmin, Per Unit Dose Up M.D. To 40 Millicuries Injection Triamcinolone (Jordyalog) Fady Jara MD 08/28/2017 Injection Triamcinolone (Jordyalog) Fady Jara MD 08/28/2017 Injection Triamcinolone (Jordyalog) Fady Jara MD 05/29/2017 Injection Triamcinolone (Jordyalog) Fady Jara MD 05/29/2017 Injection Triamcinolone (Jordyalog) Fady Jara MD 02/23/2017 Injection Triamcinolone (Jordyalog) Fady Jara MD 02/23/2017 Injection Dexamethasone Rambo Posadas MD 12/26/2016 Phosphate, 1 MG Injection Dexamethasone Sodium Arturo Posadas MD 12/26/2016 Phosphate, 1 MG Injection Depomedrol 80MG Ted Núñez M.D. 01/27/2015 Injection Depomedrol 80MG Ted Núñez M.D. 04/10/2013 Injection Depomedrol 80MG Les Cunningham M.D. 12/26/2012 Injection Depomedrol 80MG Les Cunningham M.D. 12/26/2012 Injection Depomedrol 80MG Les Cunningham M.D. 08/09/2012 Injection Depomedrol 80MG Les Cunnnigham M.D. 03/19/2012 Injection Depomedrol 80MG Les Cunningham M.D. 03/19/2012 Injection Depomedrol 80MG Les Cunningham M.D. 11/23/2011 Injection Depomedrol 80MG Les Cunningham M.D. 09/14/2011 Injection Depomedrol 80MG Les Cunningham M.D. 09/14/2011 Injection Depomedrol 80MG Raman Conway M.D. 06/14/2011 Injection Depomedrol 80MG Raman Conway M.D. 06/14/2011 Injection Depomedrol 80MG Raman Conway M.D. 04/03/2011 Injection Immunizations Description No Information Available Vital Signs Date Vital Result Comment 05/29/2019 9:50am Height 70 inches 5'10" Weight 200.00 lb Heart Rate 96 /min BP Systolic 152 mmHg BP Diastolic 86 mmHg Respiratory Rate 18 /min Body Temperature 98.1 F Pain Level 8 BMI (Body Mass Index) 28.7 kg/m2 05/14/2019 11:31am Height 70 inches 5'10" Weight 200.00 lb pt stated wt/refused current Heart Rate 88 /min BP Systolic 130 mmHg BP Diastolic 96 mmHg Respiratory Rate 17 /min Body Temperature 98.6 F Pain Level 10 BMI (Body Mass Index) 28.7 kg/m2 Results Test Acquired Date Facility Test Result H/L Range Note Laboratory test 04/02/2019 [facility] Surgical SEE RESULT [address] [place] [address] [phone] 1 SEE RESULT BELOW Name: DONNA WHITFIELD : [address]: Donna Vargas MD Acct: [id number] Unit: [id number] AGE: 73 Location: ENDO Re04/02/19 SEX: M Status: REG REF SPEC: [id number] SEAN: [birth year][address] [facility] [address]: Donna Vargas MD REQ: [id number] RECD: 04/02/19 STATUS: YODIT ALEMAN DR: Marilu [...] CONTINUED ON NEXT PAGE DEPARTMENT OF PATHOLOGY, [address] [place] [address] Philip Stone M.D. Director [facility] # [id number] 11. Colon, distal sigmoid, biopsy: -- Tubular [...] CONTINUED ON NEXT PAGE DEPARTMENT OF PATHOLOGY, [address] [place] [address] Philip Stone M.D. Director [facility] # [id number] 8. The specimen is received in formalin [...] 1204 END OF REPORT DEPARTMENT OF PATHOLOGY, [address] [place] [address] Philip Stone M.D. Director [facility] # [id number] Procedures Date Code Description Status 05/29/2019 Inject/Drain Joint/Bursa Major W/O US Completed 05/29/2019 Inject/Drain Joint/Bursa Major W/O US Completed 05/14/2019 Injection, Carpal Tunnel Completed 04/02/2019 84173 Colonoscopy Flexible Remove Tumor/Polyp/Lesion Snare Completed Technique 04/02/2019 97802 Esophagogastroduodenoscopy, diagnostic, incl brush/wash Completed if perfor 04/01/2019 72429 Inject/Drain Joint/Bursa Major W/O US Completed 02/17/2019 Injection, Carpal Tunnel Completed 12/26/2018 Inject/Drain Joint/Bursa Major W/O US Completed 10/16/2017 [id number] Colonoscopy Completed 02/20/2011 [id number] Colonoscopy Completed Medical Devices Description No Information Available Encounters Type Date Location Provider Dx Diagnosis Office Visit 05/20/2019 [facility] Michel Jose, R00.0 Tachycardia, 8:00a D.O. unspecified I10 Essential (primary) hypertension F41.9 Anxiety disorder, unspecified G25.81 Restless legs syndrome Office 04/24/2019 [facility]enter[facility] Donna Barker K21.9 Gastro-esophageal Visit 11:30a MD Sam reflux disease without esophagitis D12.3 Benign neoplasm of transverse colon D12.0 Benign neoplasm of cecum K44.9 Diaphragmatic hernia without obstruction or gangrene Office Visit 04/14/2019 8:45a [facility] Shantal Randall, M25.512 Pain in left ENTERTAINMENT AGENT shoulder Office Visit 03/24/2019 8:45a [facility] Shantaltommy Pereira, J06.9 Acute upper ENTERTAINMENT AGENT respiratory infection, unspecified J20.9 Acute bronchitis, unspecified K21.9 Gastro-esophageal reflux disease without esophagitis I10 Essential (primary) hypertension F41.9 Anxiety disorder, unspecified G25.81 Restless legs syndrome N40.1 Benign prostatic hyperplasia with lower urinary tract symp Office 03/03/2019 [facility] Shantal L03.113 Cellulitis of Visit 9:30a [place] Pereira right upper limb Office 02/21/2019 [facility]enter[facility] Donna Barker K44.9 Diaphragmatic Visit 10:30a MD Sam hernia without obstruction or gangrene K21.9 Gastro-esophageal reflux disease without esophagitis K59.00 Constipation, unspecified Z86.010 Personal history of colonic polyps R00.0 Tachycardia, unspecified I10 Essential (primary) hypertension F41.9 Anxiety disorder, unspecified Office Visit 02/17/2019 10:30a [facility] Marilu R06.02 Shortness of breath Sulema Garcia Office Visit 02/11/2019 2:00p Olinda Rodriguez G25.81 Restless legs Neurologic Tea Peters syndrome [facility] Office Visit 01/30/2019 10:15a [facility] Marilu K44.9 Diaphragmatic Jose D.OCecille hernia without obstruction or gangrene K59.00 Constipation, unspecified R11.0 Nausea R00.0 Tachycardia, unspecified I10 Essential (primary) hypertension K21.9 Gastro-esophageal reflux disease without esophagitis F41.9 Anxiety disorder, unspecified N40.1 Benign prostatic hyperplasia with lower urinary tract symp Assessments Date Code Description Provider 05/29/2019 M19.012 Primary osteoarthritis, left shoulder Fady Jara MD 05/29/2019 M19.011 Primary osteoarthritis, right shoulder Fady Jara MD 05/26/2019 F41.9 Chronic anxiety Shantal Pereira, [place] 05/23/2019 R00.0 Tachycardia, unspecified Marilu Garcia, D.O. 05/20/2019 R00.0 Tachycardia, unspecified Marilu Garcia, D.O. 05/20/2019 I10 Essential (primary) hypertension Marilu Garcia D.O. 05/20/2019 F41.9 Chronic anxiety Marilu Garcia D.O. 05/20/2019 G25.81 Restless legs syndrome Marilu Garcia, D.O. 05/14/2019 G56.03 Carpal tunnel syndrome, bilateral [...] 04/14/2019 M25.512 Pain in left shoulder Shantal Pereira, ENTERTAINMENT AGENT 04/02/2019 Z12.11 Encounter for screening for malignant [...] MD 03/24/2019 J06.9 Acute upper respiratory infection, [facility], ENTERTAINMENT AGENT unspecified 03/24/2019 J20.9 Acute bronchitis, unspecified [facility], ENTERTAINMENT AGENT 03/24/2019 K21.9 Gastro-esophageal reflux disease without [facility], ENTERTAINMENT AGENT esophagitis 03/24/2019 I10 Essential (primary) hypertension [facility], ENTERTAINMENT AGENT 03/24/2019 F41.9 Chronic anxiety [facility], ENTERTAINMENT AGENT 03/24/2019 G25.81 Restless legs syndrome [facility], ENTERTAINMENT AGENT 03/24/2019 N40.1 Benign prostatic hyperplasia with lower [facility], ENTERTAINMENT AGENT urinary tract symptoms 03/14/2019 B37.9 Candidiasis, unspecified MANUEL Greene 03/03/2019 L03.113 Cellulitis of right upper limb [facility], ENTERTAINMENT AGENT 02/21/2019 K44.9 Diaphragmatic hernia without obstruction Donna Vargas MD or gangrene 02/21/2019 K21.9 Gastro-esophageal reflux disease without Donna Vargas MD esophagitis 02/21/2019 K59.00 Constipation, unspecified Donna Vargas MD 02/21/2019 Z86.010 Personal history of colonic polyps Donna Vargas MD 02/21/2019 R00.0 Tachycardia, unspecified Donna Vargas [...] esophagitis 01/30/2019 F41.9 Anxiety disorder, unspecified Marilu Joes, D.O. 01/30/2019 N40.1 Benign prostatic hyperplasia with lower Marilu Jose, D.O. urinary tract symptoms 12/26/2018 S46.012A Strain of muscle(s) and tendon(s) of the Fady Jara MD rotator cuff of lef 12/26/2018 S46.011D Strain of muscle(s) and tendon(s) of the Fady Jara MD rotator cuff of rig 12/26/2018 M19.012 Primary osteoarthritis, left shoulder Fady Jara MD 12/26/2018 M19.011 Primary osteoarthritis, right shoulder Fady Jara MD Plan of Treatment Future Appointment(s):07/10/2019 9:15 am - Arturo Posadas MD at [facility] at Kaajxh3308/14/2019 9:45 am - Ewelina Salvador M.D. at [facility] at Nrukve1210/24/2019 10:15 am - Donna Vargas MD at [facility] Eqhewnmmilfhacgw01/04/2020 1:45 pm - Benny Peters M.D. at [facility]05/29/2019 - Fady Jara MDM19.012 Primary osteoarthritis, left shoulderFollow up:Follow up: in 3 months with Wilton Posadas, or KglfmM73.011 Primary osteoarthritis, right shoulder Functional Status Description No Information Available Mental Status Description No Information Available Referrals Description No Information Available
--- OUTSIDE RECORDS SUMMARY | 2019-07-11 13:04 | XMS REPORT | Continuity of Care Document ---
:1945 External Reference #:[id number] Author Name Fady Jara MD (transmitted by agent of provider Kayla Darby) Address [address] [place] [address] Care Team Providers Name Role Phone Srinivas Joel MD - Physical Care Team Information Financial Services Sales Representative Medicine & Rehabilitation Marilu Garcia DO - Primary Care Care Team Information Financial Services Sales Representative [phone] Problems Active Problems Provider Date Diaphragmatic hernia [...] Ofelia Guillen, 11/13/2018 40mg minutes prior to MAGNETIC TESTER Tablets DR meal once a day Buspirone HCL Take 20 mg by mouth Shantal 03/04/2018 10mg three times daily Randall MAGNETIC TESTER Tablets Zoloft 2 by mouth every Unknown [...] Provider Date Triamcinolone (Kenalog) Fady Jara MD 04/01/2019 Injection [...] 40MG Ewelina Salvador M.D. 10/09/2018 Injection Triamcinolone (Jordyalog) Fady Jara MD 09/24/2018 Injection Triamcinolone (Kenalog) Fady Jara MD 09/24/2018 Injection Depomedrol 40MG Ewelina Salvador M.D. 06/20/2018 Injection Depomedrol 40MG Ewelina Salvador M.D. 06/20/2018 Injection Triamcinolone (Kenalog) Fady Jara MD 06/18/2018 Injection Triamcinolone (Kenalog) Fady Jara MD 06/18/2018 Injection Depomedrol 40MG Ewelina Salvador M.D. 01/03/2018 Injection Triamcinolone (Kenalog) Fady Jara MD 12/27/2017 Injection Triamcinolone (Kenalog) Fady Jara MD 12/27/2017 Injection Technetium TC 99M Annamaria HolmanCecille Tiffanie, 09/27/2017 Tetrofosmin, Per Unit Dose Up M.D. To 40 Millicuries Injection Triamcinolone (Kenalog) Fady Jara MD 08/28/2017 Injection Triamcinolone (Jordyalog) Fady Jara MD 08/28/2017 Injection Triamcinolone (Kenalog) Fady Jara MD 05/29/2017 Injection Triamcinolone (Kenalog) Fady Jara MD 05/29/2017 Injection Triamcinolone (Jordyalog) Fady Jara MD 02/23/2017 Injection Triamcinolone (Kenalog) Fady Jara MD 02/23/2017 Injection Dexamethasone Rambo [...] Result H/L Range Note Laboratory test 04/02/2019 [facility] Surgical SEE RESULT [address] Pathology BELOW [place] [id number] [phone] 1 SEE RESULT BELOW Name: DONNA WHITFIELD Carlos : [address]: Donna Vargas MD Acct: [id number] Unit: [id number] AGE: 73 Location: ENDO Re04/02/19 SEX: M Status: REG REF SPEC: [id number] SEAN: 04/02/19-0944 [facility] DR: Donna Vargas MD REQ: [id number] RECD: 04/02/19120 STATUS: YODIT ALEMAN DR: Marilu M Jose DO _ ORDERED: LEVEL 4/11 FINAL DIAGNOSIS [...] CONTINUED ON NEXT PAGE DEPARTMENT OF PATHOLOGY, [address] [place] [address] Philip Stone M.D. Director [facility] # [id number] 11. Colon, distal sigmoid, biopsy: -- Tubular [...] CONTINUED ON NEXT PAGE DEPARTMENT OF PATHOLOGY, [address] [place] [address] Philip Stone M.D. Director [facility] # [id number] 8. The specimen is received in formalin [...] 1204 END OF REPORT DEPARTMENT OF PATHOLOGY, [address] [place] [address] Philip Stone M.D. Director [facility] # [id number] Procedures Date Code Description Status 05/29/2019 Inject/Drain Joint/Bursa Major W/O US Completed 05/29/2019 Inject/Drain Joint/Bursa Major W/O US Completed 05/14/2019 Injection, Carpal Tunnel Completed 04/02/2019 47292 Colonoscopy Flexible Remove Tumor/Polyp/Lesion Snare Completed Technique 04/02/2019 05110 Esophagogastroduodenoscopy, diagnostic, incl brush/wash Completed if perfor 04/01/2019 Inject/Drain Joint/Bursa Major W/O US Completed 02/17/2019 Injection, Carpal Tunnel Completed 12/26/2018 Inject/Drain Joint/Bursa Major W/O US Completed 10/16/2017 [id number] Colonoscopy Completed 02/20/2011 [id number] Colonoscopy Completed Medical Devices Description No Information Available Encounters Type Date Location Provider Dx Diagnosis Office Visit 05/20/2019 [facility] Marilu Garcia, R00.0 Tachycardia, 8:00a D.O. unspecified I10 Essential (primary) hypertension F41.9 Anxiety disorder, unspecified G25.81 Restless legs syndrome Office 04/24/2019 [facility] Gastroenter[facility] Donna Barker K21.9 Gastro-esophageal Visit 11:30a MD Sam reflux disease without esophagitis D12.3 Benign neoplasm of transverse colon D12.0 Benign neoplasm of cecum K44.9 Diaphragmatic hernia without obstruction or gangrene Office Visit 04/14/2019 8:45a [facility] Mcdanieltommy Pereira, M25.512 Pain in left MAGNETIC TESTER shoulder Office Visit 03/24/2019 8:45a [facility] Mcdanieltommy Pereira, J06.9 Acute upper MAGNETIC TESTER respiratory infection, unspecified J20.9 Acute bronchitis, unspecified K21.9 Gastro-esophageal reflux disease without esophagitis I10 Essential (primary) hypertension F41.9 Anxiety disorder, unspecified G25.81 Restless legs syndrome N40.1 Benign prostatic hyperplasia with lower urinary tract symp Office 03/03/2019 [facility] Mcdanielara L03.113 Cellulitis of Visit 9:30a [place] Pereira right upper limb Office 02/21/2019 [facility] Gastroenterology Donna Barker K44.9 Diaphragmatic Visit 10:30a MD Sam hernia without obstruction or gangrene K21.9 Gastro-esophageal reflux disease without esophagitis K59.00 Constipation, unspecified Z86.010 Personal history of colonic polyps R00.0 Tachycardia, unspecified I10 Essential (primary) hypertension F41.9 Anxiety disorder, unspecified Office Visit 02/17/2019 10:30a [facility] Marilu R06.02 Shortness of breath Sulema Garcia Office Visit 02/11/2019 2:00p Olinda Rodriguez G25.81 Restless legs Neurologic Tea Peters syndrome [facility] Office Visit 01/30/2019 10:15a [facility] Michel K44.9 Diaphragmatic Jose DGet hernia without obstruction or gangrene K59.00 Constipation, unspecified R11.0 Nausea R00.0 Tachycardia, unspecified I10 Essential (primary) hypertension K21.9 Gastro-esophageal reflux disease without esophagitis F41.9 Anxiety disorder, unspecified N40.1 Benign prostatic hyperplasia with lower urinary tract symp Office Visit 12/11/2018 [facility] G[facility]enter[facility] Ofelia K44.9 Diaphragmatic 10:30a Guillen, MAGNETIC TESTER hernia without obstruction or gangrene R05 Cough K59.00 Constipation, unspecified Assessments Date Code Description Provider 05/29/2019 M19.012 Primary osteoarthritis, left shoulder Fady Jara MD 05/29/2019 M19.011 Primary osteoarthritis, right shoulder Fady Jara MD 05/26/2019 F41.9 Chronic anxiety Shantal Pereira NP 05/23/2019 R00.0 Tachycardia, unspecified Marilu Jose, D.O. 05/20/2019 R00.0 Tachycardia, unspecified Marilu Jose, D.O. 05/20/2019 I10 Essential (primary) hypertension Marilu Jose, D.O. 05/20/2019 F41.9 Chronic anxiety Marilu Jose, D.O. 05/20/2019 G25.81 Restless legs syndrome Marilu Jose, D.O. 05/14/2019 G56.03 Carpal tunnel syndrome, bilateral [...] MD 03/24/2019 J06.9 Acute upper respiratory infection, [facility], MAGNETIC TESTER unspecified 03/24/2019 J20.9 Acute bronchitis, unspecified [facility], MAGNETIC TESTER 03/24/2019 K21.9 Gastro-esophageal reflux disease without [facility], MAGNETIC TESTER esophagitis 03/24/2019 I10 Essential (primary) hypertension [facility], MAGNETIC TESTER 03/24/[address] [facility], MAGNETIC TESTER 03/24/2019 G25[address] [facility], MAGNETIC TESTER 03/24/2019 N40.1 Benign prostatic hyperplasia with lower [facility], MAGNETIC TESTER urinary tract symptoms 03/14/2019 B37.9 Candidiasis, unspecified MANUEL Greene 03/03/2019 L03.113 Cellulitis of right upper limb [facility], MAGNETIC TESTER 02/21/2019 K44.9 Diaphragmatic hernia without obstruction Donna [...] Primary osteoarthritis, right shoulder Fady Jara MD 12/11/2018 K44.9 Diaphragmatic hernia without obstruction Ofelia Guillen NP or gangrene 12/11/2018 R05 Cough Ofelia Guillen NP 12/11/2018 K59.00 Constipation, unspecified Ofelia Guillen NP 11/28/2018 K44.9 Diaphragmatic hernia without obstruction MANUEL Greene or gangrene 11/28/2018 R10.13 Epigastric pain MANUEL Greene 11/28/2018 R11.0 Nausea MANUEL Greene 11/28/2018 Z79.899 Other custodial (current) drug therapy MANUEL Greene 11/28/2018 G56.03 Carpal tunnel syndrome, bilateral upper MANUEL Greene limbs 11/28/2018 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 11/28/2018 R05 Cough MANUEL Greene 11/27/2018 R10.13 Epigastric pain MANUEL Greene 11/27/2018 K44.9 Diaphragmatic hernia without obstruction MANUEL Greene or gangrene 11/27/2018 R11.0 Nausea MANUEL Greene 11/27/2018 Z79.899 Other custodial (current) drug therapy MANUEL Greene 11/27/2018 G56.03 Carpal tunnel syndrome, bilateral upper MANUEL Greene limbs 11/27/2018 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 at [facility] at Fjzrzg9310/24/2019 10:15 am - Donna Vargas MD at [facility] Oxzyeyxscchbgoxj88/04/2020 1:45 pm - Benny Peters M.D. at [facility]05/29/2019 - Fady Jara, [facility]19.012 Primary osteoarthritis, left shoulderFollow up:Follow up: in 3 months with Wilton Posadas, or VbtawB34.011 Primary osteoarthritis, right shoulder Functional Status Description No Information Available Mental Status Description No Information Available Referrals Description No Information Available
--- OUTSIDE RECORDS SUMMARY | 2019-07-11 13:04 | XMS REPORT | Continuity of Care Document ---
:1945 External Reference #:[id number] Author Name Ewelina Salvador M.D. (transmitted by agent of provider Bhavna Bethea) Address [address] [place] [address] Care Team Providers Name Role Phone Srinivas Joel MD - Physical Care Team Information [employer] Inspector Medicine & Rehabilitation Marilu aGrcia DO - Primary Care Care Team Information [employer] Inspector Problems Active Problems Provider Date Diaphragmatic hernia [...] Use Denies Drug Use Smoking Status Reviewed: 05/14/19 Patient is a former quite years ago, [...] Ofelia Guillen, 11/13/2018 40mg minutes prior to [employer] Tablets DR meal once a day Buspirone HCL Take 20 mg by mouth Shantal 03/04/2018 10mg three times daily Randall [employer] Tablets Zoloft 2 by mouth every Unknown [...] 40MG Ewelina Salvador M.D. 01/03/2018 Injection Triamcinolone (Alan) Fady Jara MD 12/27/2017 Injection Triamcinolone (Kenalog) [...] (Jordyalog) Fady Jara MD 02/23/2017 Injection Dexamethasone Sodium [...] Available Vital Signs Date Vital Result Comment 05/14/2019 11:31am Height 70 inches 5'10" Weight 200.00 lb pt stated wt/refused current Heart Rate 88 /min BP Systolic 130 mmHg BP Diastolic 96 mmHg Respiratory Rate 17 /min Body Temperature 98.6 F Pain Level 10 BMI (Body Mass Index) 28.7 kg/m2 04/24/2019 12:05pm Height 70 inches 5'10" Weight 200.00 lb patient stated Heart Rate 103 /min BP Systolic 151 mmHg BP Diastolic 102 mmHg O2 % BldC Oximetry 94 % BMI (Body Mass Index) 28.7 kg/m2 Results Test Acquired Date Facility Test Result H/L Range Note Laboratory test 04/02/2019 [facility] Surgical SEE RESULT [address] [place] [address] [phone] CBC No Diff 11/15/2018 [facility] White Blood 11.2 High 3.5- 10.[address] Count 10^3/[place] [address] [phone] Red Blood Count 4.34 10^6/uL Normal 4.18-5.48 Hemoglobin 14.1 g/dL Normal 14.0-18.0 Hematocrit 41 % Low 42-52 Mean Corpuscular Volume 95 fL High 80-94 Mean Corpuscular Hemoglobin 32 pg High 27-31 Mean Corpuscular HGB Conc 34 g/dL Normal 31-36 Red Cell Distribution Width 15 % Normal 10.5-15 Platelet Count 214 10^3/uL Normal 150-450 Mean Platelet Volume 6.3 fL Low 7.4-10.4 Comp Metabolic 11/15/2018 [facility] Sodium 135 mmol/L Normal 135-[address] [place] [address] [phone] Potassium 4.1 mmol/L Normal 3.5-5.0 Chloride 99 [...] Egfr Non- 90.3 >60 Egfr 109.3 >60 3 Lipid Profile 11/15/2018 [facility] Triglycerides 353 mg/dL 4 (Trig/Chol/HDL) [address] [place] [address] [phone] Cholesterol 272 mg/dL 5 HDL Cholesterol 43.8 mg/dL 6 LDL Cholesterol 158 mg/dL 7 Iron & Iron Binding 11/15/2018 [facility] Iron 80 g/dL Normal 50-212 Capacity [address] [place] [address] [phone] Unsaturated Iron Binding < 332 g/dL Total Iron Binding Capacity 347 g/dL Normal 250-450 Transferrin 248 mg/dL Normal 203-362 % Iron Saturation 23 % Normal 15-55 1 SEE RESULT BELOW Name: DONNA WHITFIELD : [address]: Donna Vargas MD Acct: [id number] Unit: [id number] AGE: 73 Location: [facility] Re04/02/19 SEX: M Status: REG REF SPEC: [id number] SEAN: 04/02/19 [facility] DR: Donna Vargas MD REQ: [id number] RECD: 04/02/19 STATUS: YODIT ALEMAN DR: Marilu Garcia DO _ ORDERED: LEVEL 4/ FINAL DIAGNOSIS 1. Colon, ileocecal valve, biopsy: [...] CONTINUED ON NEXT PAGE DEPARTMENT OF PATHOLOGY, [address] [place] [address] Philip Stone M.D. Director [facility] # [id number] 11. Colon, distal sigmoid, biopsy: -- Tubular [...] CONTINUED ON NEXT PAGE DEPARTMENT OF PATHOLOGY, [address] [place] [address] Philip Stone M.D. Director [facility] # [id number] 8. The specimen is received in formalin [...] 1204 END OF REPORT DEPARTMENT OF PATHOLOGY, [address] [place] [address] Philip Stone M.D. Director [facility] # [id number] 2 [facility] 2, Room Number 241 [id number] 3 Because ethnic data is not always readily [...] 15-29 5 Kidney failure <15 (or dialysis) 4 Desirable: <150 Borderline High: 150-199 High: 200-499 Very High: >500 5 Desirable: <200 Borderline High: 200-239 High: >239 6 Low: <40 Desirable: 40-60 High: >60 7 Desirable: <100 Near Optimal: 100-129 Borderline High: 130-159 High: 160-189 Very High: >189 Procedures Date Code Description Status 05/14/2019 Injection, Carpal Tunnel Completed 04/02/2019 79502 Colonoscopy Flexible Remove Tumor/Polyp/Lesion Snare Completed Technique 04/02/2019 87942 Esophagogastroduodenoscopy, diagnostic, incl brush/wash Completed if perfor 04/01/2019 88515 Inject/Drain Joint/Bursa Major W/O US Completed 02/17/2019 Injection, Carpal Tunnel Completed 12/26/201818773 Inject/Drain Joint/Bursa Major W/O US Completed 10/16/2017 92002248 Colonoscopy Completed 02/20/2011 22292628 Colonoscopy Completed Medical Devices Description No Information Available Encounters Type Date Location Provider Dx Diagnosis Office Visit 04/14/2019 Olinda Pereira, M25.512 Pain in left 8:45a [employer] shoulder Office Visit 03/24/2019 Olinda Pereira, J06.9 Acute upper 8:45a [employer] respiratory infection, unspecified J20.9 Acute bronchitis, unspecified K21.9 Gastro-esophageal reflux disease without esophagitis I10 Essential (primary) hypertension F41.9 Anxiety disorder, unspecified G25.81 Restless legs syndrome N40.1 Benign prostatic hyperplasia with lower urinary tract symp Office 03/03/2019 Olinda Murguia L03.113 Cellulitis of Visit 9:30a [place] Pereira right upper limb Office 02/21/2019 [facility] Donna Barker K44.9 Diaphragmatic Visit 10:30a MD Sam hernia without obstruction or gangrene K21.9 Gastro-esophageal reflux disease without esophagitis K59.00 Constipation, unspecified Z86.010 Personal history of colonic polyps R00.0 Tachycardia, unspecified I10 Essential (primary) hypertension F41.9 Anxiety disorder, unspecified Office Visit 02/17/2019 10:30a Olinda Michel R06.02 Shortness of breath Jose D.O. Office Visit 02/11/2019 2:00p Olinda Benny Rodriguez G25.81 Restless legs Neurologic Tea Peters syndrome [facility] Office Visit 01/30/2019 10:15a Olinda Michel K44.9 Diaphragmatic Jose, D.O. hernia without obstruction or gangrene K59.00 Constipation, unspecified R11.0 Nausea R00.0 Tachycardia, unspecified I10 Essential (primary) hypertension K21.9 Gastro-esophageal reflux disease without esophagitis F41.9 Anxiety disorder, unspecified N40.1 Benign prostatic hyperplasia with lower urinary tract symp Office Visit 12/11/2018 [facility] Ofelia K44.9 Diaphragmatic 10:30a Guillen, [employer] hernia without obstruction or gangrene R05 Cough K59.00 Constipation, unspecified Office Visit 11/13/2018 [facility] Ofelia K44.9 Diaphragmatic 10:30a Guillen, [employer] hernia without obstruction or gangrene R10.13 Epigastric pain R11.0 Nausea Z79.899 Other senior care (current) drug therapy Assessments Date Code Description Provider 05/14/2019 G56.01 Carpal tunnel syndrome, right upper limb Ewelina Salvador M.D. 05/14/2019 G56.02 Carpal tunnel syndrome, left upper limb Ewelina Salvador M.D. 04/14/2019 M25.512 Pain in left shoulder Shantal [...] MD 03/24/2019 J06.9 Acute upper respiratory infection, [facility], [employer] unspecified 03/24/2019 J20.9 Acute bronchitis, unspecified [facility], [employer] 03/24/2019 K21.9 Gastro-esophageal reflux disease without [facility], [employer] esophagitis 03/24/2019 I10 Essential (primary) hypertension [facility], [employer] 03/24/2019 F41.9 Chronic anxiety [facility], [employer] 03/24/2019 G25.81 Restless legs syndrome [facility], [employer] 03/24/2019 N40.1 Benign prostatic hyperplasia with lower [facility], [employer] urinary tract symptoms 03/14/2019 B37.9 Candidiasis, unspecified MANUEL Greene 03/03/2019 L03.113 Cellulitis of right upper limb [facility], [employer] 02/21/2019 K44.9 Diaphragmatic hernia without obstruction Donna [...] limbs 02/17/2019 R06.02 Shortness of breath Marilu Garcia D.O. 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 11/28/2018 R05 Cough Julietteyolis Martin PA 11/27/2018 R10.13 Epigastric pain Juliette Martin PA 11/27/2018 K44.9 Diaphragmatic hernia without obstruction Julietteyolis Martin PA or gangrene 11/27/2018 R11.0 Nausea Juliette Martin PA 11/27/2018 Z79.899 Other superintendent container terminal (current) drug therapy Juliette Martin PA 11/27/2018 G56.03 Carpal tunnel syndrome, bilateral upper Julietteyolis MartinMANUEL limbs 11/27/2018 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 at [facility] at Hmzfjz9905/29/2019 9:45 am - Fady Jara MD at [facility] at Nphjkm0810/24/2019 10:15 am - Donna Vargas MD at [facility] Wfxvnpvtaqumjqdn68/04/2020 1:45 pm - Benny Peters M.D. at [facility]05/14/2019 - Ewelina Salvador M.D.G56.01 Carpal tunnel syndrome, right upper limbFollow up:Follow up: As rcsktiN02.02 Carpal tunnel syndrome, left upper limbFollow up:Follow up: 3 months Functional Status Description No Information Available Mental Status Description No Information Available Referrals Description No Information Available
--- OUTSIDE RECORDS SUMMARY | 2019-07-11 13:04 | XMS REPORT | Continuity of Care Document ---
:1945 External Reference #:[id number] Author Name Robert Hernandez Care Team Providers Name Role Phone Srinivas Joel MD - Physical Care Team Information Contact Center Rep [phone] Medicine & Rehabilitation Marilu Garcia DO - Primary Care Care Team Information Contact Center Rep Problems Active Problems Provider Date Diaphragmatic hernia [...] Closed fracture of lumbar vertebra without Arturo Posadas MD Onset: 08/2019 spinal cord injury [...] Ofelia Guillen, 11/13/2018 40mg minutes prior to [employer] Tablets DR meal once a day Buspirone HCL Take 20 mg by mouth Shantal 03/04/2018 10mg three times daily MI Pereira Tablets Cyanocobalamin oral 250 mcg Unknown Zoloft [...] MD 12/26/2016 Phosphate, 1 MG Injection Dexamethasone Rambo Posadas MD 12/26/2016 Phosphate, [...] Result H/L Range Note Laboratory test 04/02/2019 [facility] Surgical SEE RESULT [address] Pathology BELOW [place] [id number] [phone] 1 SEE RESULT BELOW Name: DONNA WHITFIELD : [address]: Donna Vargas MD Acct: [id number] Unit: [id number] AGE: 73 Location: ENDO Re04/02/19 SEX: M Status: REG REF SPEC: [id number] SEAN: [birth year][address]: Donna Vargas MD REQ: [id number] RECD: 04/02/19 STATUS: YODIT ALEMAN DR: Marilu [...] CONTINUED ON NEXT PAGE DEPARTMENT OF PATHOLOGY, [address] [place] [address] Philip Stone M.D. Director [facility] # [id number] 11. Colon, distal sigmoid, biopsy: -- Tubular [...] CONTINUED ON NEXT PAGE DEPARTMENT OF PATHOLOGY, [address] [place] [address] Philip Stone M.D. Director [facility] # [id number] 8. The specimen is received in formalin [...] 1204 END OF REPORT DEPARTMENT OF PATHOLOGY, [address] [place] [address] Philip Stone M.D. Director [facility] # [id number] Procedures Date Code Description Status 05/29/2019 Inject/Drain Joint/Bursa Major W/O US Completed 05/14/2019 Injection, Carpal Tunnel Completed 04/02/2019 82755 Colonoscopy Flexible Remove Tumor/Polyp/Lesion Snare Completed Technique 04/02/2019 55169 Esophagogastroduodenoscopy, diagnostic, incl brush/wash Completed if perfor 04/01/2019 Inject/Drain Joint/Bursa Major W/O US Completed 02/17/2019 12033 Injection, Carpal Tunnel Completed 10/16/2017 44900918 Colonoscopy Completed 02/20/2011 95946857 Colonoscopy Completed Medical Devices Description No Information Available Encounters Type Date Location Provider Dx Diagnosis Office Visit 06/16/2019 Olinda Pereira, R06.02 Shortness of breath 9:00a [employer] R53.1 Weakness R60.0 Localized edema F41.9 Anxiety disorder, unspecified Office Visit 05/23/2019 8:30a [place] Andres Senar, R00.0 Tachycardia, D.O. unspecified Office Visit 05/20/2019 8:00a [place] Andres Garcia, R00.0 Tachycardia, D.O. unspecified I10 Essential (primary) hypertension F41.9 Anxiety disorder, unspecified G25.81 Restless legs syndrome Office 04/24/2019 [facility] [address] Gastroenterology Donna Barker K21.9 Gastro-esophageal Visit 11:30a MD Sam reflux disease without esophagitis D12.3 Benign neoplasm of transverse colon D12.0 Benign neoplasm of cecum K44.9 Diaphragmatic hernia without obstruction or gangrene Office Visit 04/14/2019 8:45a [place] Andres Pereira, M25.512 Pain in left [employer] shoulder Office Visit 03/24/2019 8:45a [place] Andres Pereira, J06.9 Acute upper [employer] respiratory infection, unspecified J20.9 Acute bronchitis, unspecified K21.9 Gastro-esophageal reflux disease without esophagitis I10 Essential (primary) hypertension F41.9 Anxiety disorder, unspecified G25.81 Restless legs syndrome N40.1 Benign prostatic hyperplasia with lower urinary tract symp Office 03/14/2019 [place] Jo[place] B37.9 Candidiasis, Visit 8:15a MANUEL Martin unspecified Office 03/03/2019 [facility] Shantal L03.113 Cellulitis of Visit 9:30a MI Pereira right upper limb Office 02/21/2019 [facility] [address] Gastroenterology Donna Barker K44.9 Diaphragmatic Visit 10:30a MD Sam hernia without obstruction or gangrene K21.9 Gastro-esophageal reflux disease without esophagitis K59.00 Constipation, unspecified Z86.010 Personal history of colonic polyps R00.0 Tachycardia, unspecified I10 Essential (primary) hypertension F41.9 Anxiety disorder, unspecified Office Visit 02/17/2019 10:30a Olinda Rooneyice R06.02 Shortness of breath Sulema Garcia Office Visit 02/11/2019 2:00p Olinda HolmanCecille G25.81 Restless legs Neurologic Tea Peters syndrome [facility] [address] Office Visit 01/30/2019 10:15a Olinda Campos Marilu K44.9 Diaphragmatic Jose D.Andriy. hernia without obstruction or gangrene K59.00 Constipation, [...] fracture 06/27/[address], [employer] 06/27/2019 R06.02 Shortness of breath Angelica [address], [employer] 06/27/2019 R10.[address], [employer] 06/16/2019 R06.02 Shortness of breath Shantal Pereira, [place] 06/16/2019 R53.1 Weakness Shantal Pereira, [employer] 06/16/2019 R60.0 Localized edema Shantal Pereira, [employer] 06/16/2019 F41.9 Chronic anxiety Shantal Pereira, [employer] 05/29/2019 M19.012 Primary osteoarthritis, left shoulder Fady Jara MD 05/29/2019 M19.011 Primary osteoarthritis, right shoulder Fady Jara MD 05/26/2019 F41.9 Chronic anxiety Shantal Pereira, [employer] 05/23/2019 R00.0 Tachycardia, unspecified Marilu Garcia D.O. 05/20/2019 R00.0 Tachycardia, unspecified Marilu Garcia D.O. 05/20/2019 I10 Essential (primary) hypertension Carin Hampton.O. 05/20/2019 F41.9 Chronic anxiety Marilu Garcia D.O. [...] MD 03/24/2019 J06.9 Acute upper respiratory infection, Shantal Pereira [employer] unspecified 03/24/2019 J20.9 Acute bronchitis, unspecified Shantal Pereira, [employer] 03/24/2019 K21.9 Gastro-esophageal reflux disease without Shantal Pereira NP esophagitis 03/24/2019 I10 Essential (primary) hypertension Shantal Pereira, [place] 03/24/2019 F41.9 Chronic anxiety Shantal Pereira, [place] 03/24/2019 G25.81 Restless legs syndrome Shantal Pereira NP 03/24/2019 N40.1 Benign prostatic hyperplasia with lower Shantal Pereira NP urinary tract symptoms 03/14/2019 B37.9 Candidiasis, unspecified Juliette Martni, PA 03/03/2019 L03.113 Cellulitis of right upper limb Shantaltommy Landryrenetta, [employer] 02/21/2019 K44.9 Diaphragmatic hernia without obstruction Donna [...] lower Marilu Jose, D.O. urinary tract symptoms Plan of Treatment Future Appointment(s):08/14/2019 9:45 am - Ewelina Salvador M.D. at [facility] at Iokazx6610/24/2019 10:15 am - Donna Vargas MD at [facility] [address] Dimpnxtxtfjpzpnt78/04/2020 1:45 pm - Benny Peters M.D. at [place] [facility] [address]07/10/2019 - Arturo Psoadas, MDS32.000A Wedge compression fracture of unspecified lumbar vertebra, initial encounter for closed fractureReferral:Yeni Richter MD, Surgery,NeurologicalFollow up :Follow up: As needed for b/l Shoulder pain - Referral to spine - Follow up with primary for edema Functional Status Description No Information Available Mental Status Description No Information Available Referrals Refer to Dr Reason for Referral Status Appt Date Yeni Richter MD Created [address] [place] [phone]
[2019-07-11 13:09] LABS: Troponin I 0.01 ng/mL (<0.03)
[2019-07-11 13:14] LABS: Albumin 3.7 g/dL (3.2-5.2); Albumin/Globulin Ratio 1.4 (1-3); BUN/Creatinine Ratio 28.4 (8-20); EGFR African American 113.7 (>60); EGFR Non-African American 93.9 (>60); Globulin 2.6 g/dL (2-4); Potassium 3.9 mmol/L (3.5-5.0); Total Bilirubin 0.4 mg/dL (0.2-1.0); Total Protein 6.3 g/dL (6.4-8.9)
[2019-07-11 13:27] LABS: ABS Basophils 0.1 10^3/ul (0-0.2); ABS Eosinophils 0.1 10^3/ul (0-0.6); ABS Lymphocytes 2.4 10^3/ul (1.0-4.8); ABS Monocytes 1.1 10^3/ul (0-0.8); ABS Neutrophils 7.1 10^3/ul (1.5-7.7); Eosinophil % 0.8 %; Lymphocyte % 22.4 %; Nucleated Red Blood Cells % 0.1
[2019-07-11] MEDS ORDERED: Azithromycin TAB* 250 MG PO ONE (13:53)
[2019-07-11 14:05] LABS: TSH (Thyroid Stimulating Horm) 3.38 mcIU/mL (0.34-5.60)
[2019-07-11 14:18] LABS: C Reactive Protein 1.55 mg/L (<8.01)
[2019-07-11] MEDS ORDERED: NON FORMULARY MED* (Melatonin [Melatonin] 5 MG) PO PRN (14:45)
[2019-07-11] MEDS ORDERED: Ferrous Gluconate TAB* 324 MG TAB PO SCH (15:00)
[2019-07-11] MEDS ORDERED: Iohexol 350* (CONTRAST) 500 ML MDV IV ONE (16:23)
[2019-07-11] MEDS ORDERED: Nitro 2% OINT* (Nitroglycerin) 1 INCH/PAK PAK TOPICAL ONE (17:00)
[2019-07-11] MEDS: Acetaminophen TAB* 325 MG PO PRN (17:01)
[2019-07-11] MEDS: busPIRone TAB* 10 MG PO SCH ×2 (17:02→21:17)
[2019-07-11] MEDS: Gabapentin CAP(*) 300 MG PO SCH ×2 (17:02→21:20)
[2019-07-11] MEDS: Ferrous Gluconate TAB* 324 MG TAB PO SCH (17:50)
--- NOTE | 2019-07-11 19:52 | HP ---
CC: Olinda Campos; Dr. Moreno * MEDICINE HISTORY AND PHYSICAL: DATE OF ADMISSION: 07/11/19 PRIMARY CARE PHYSICIAN: Olinda Campos. PROVIDER: Mei Wheeler NP ATTENDING PHYSICIAN: Eve Clay MD * (dictated by Mei Wheeler NP). OUTPATIENT RESEARCH CONSULTANT: Dr. Moreno. CHIEF COMPLAINT: Chest pain, shortness of breath, dizziness, tachycardia. HISTORY OF PRESENT ILLNESS: Mr. Gasca is a 73-year-old gentleman with past medical history significant for hypertension, hyperlipidemia, large hiatal hernia, hypothyroidism, GERD, sinus tachycardia and mild cognitive impairment, who presented to the ER today for evaluation of chest pain, shortness of breath , dizziness and tachycardia. He reports that this has been ongoing for several weeks and describes weakness that has progressed to the point he has difficulty getting up, as well as shortness of breath. He reports palpitations and fast heart beat, dizziness, and intermittent chest pain. He woke up this morning and stated that he had more pain than usual in his mid chest. He felt dizzy and felt more weak than usual, stating that his legs could not support him. He was able to make it to the office of Dr. Moreno. He apparently arrived and had complained of chest pain and dizziness and was found to be tachycardic and he was sent to the ER for further evaluation. His initial labs show his D- dimer of 476, a troponin of 0.01, TSH of 3.38. His EKG showed sinus tachycardia. Given his story and presentation, Hospital Medicine was consulted for consideration of admission. PAST MEDICAL HISTORY: Includes: 1. Hypertension. 2. GERD. 3. Anxiety. 4. Mild cognitive impairment. 5. Chronic leukocytosis. 6. Sinus tachycardia. 7. Dysarthria. 8. Hypothyroidism. 9. Restless leg syndrome. 10. BPH with urinary retention. 11. Chronic systolic heart failure. 12. Large hiatal hernia. HOME MEDICATIONS: 1. Sertraline 100 mg daily. 2. Acetaminophen 1000 mg q.8 hours p.r.n. 3. Thioridazine 25 mg b.i.d. 4. Tamsulosin 0.4 mg b.i.d. 5. Levothyroxine 125 mcg daily. 6. Senna/docusate sodium 2 tabs at bedtime. 7. Pantoprazole 40 mg b.i.d. 8. Finasteride 5 mg daily. 9. Famotidine 40 mg at bedtime. 10. Trental CR 400 mg t.i.d. 11. Zofran 8 mg q.8 hours p.r.n. 12. Multivitamin 1 tab daily. 13. Metoprolol tartrate 100 mg b.i.d. 14. Melatonin 5 mg at bedtime p.r.n. 15. Losartan 25 mg daily. 16. Furosemide 40 mg.q.48 hours p.r.n. 17. Ketoconazole 1 application topical on Sunday. 18. MiraLAX 17 g daily. 19. Gabapentin 300 mg t.i.d. 20. Ferrous gluconate 325 mg q.72 hours. 21. Flexeril 10 mg q.8 hours p.r.n. 22. Vitamin B12 250 mcg daily. 23. BuSpar 20 mg t.i.d. 24. Lorazepam 0.5 mg b.i.d. 25. Atorvastatin 40 mg daily. ALLERGIES: Include CODEINE, WELCHOL, MECLIZINE, and OXYCODONE. FAMILY HISTORY: He reports his father with history of coronary artery disease and AAA. Mother with history of hypertension and palpitations. SOCIAL HISTORY: He reports former tobacco use at 1 pack per day for 10 years and he quit 47 years ago in December of 1972. He denies any history of alcohol or illicit drug use. He denies any past work exposures having previously worked at [employer] in [employer]. He resides at [facility]. His brother, Buddy Gasca, is his surrogate decision maker and healthcare proxy in the event of emergency. REVIEW OF SYSTEMS: A 12-point review of systems was completed. All pertinent positives and negatives as per HPI, others not mentioned are negative. PHYSICAL EXAMINATION GENERAL: This is an older gentleman seen lying in ED stretcher in no acute distress. He is able to speak in complete sentences without difficulties. VITAL SIGNS: Temperature 97.2, heart rate 94, respiratory rate 20, blood pressure 136/109, O2 saturation is 92% on room air. HEENT: Head is atraumatic, normocephalic. Pupils are equal, round, reactive to light and accommodation. Extraocular movements are intact. Oral mucosa is moist. NECK: Supple with full range of motion. No JVD noted. No lymphadenopathy appreciated. LUNGS: Clear to auscultation bilaterally. CARDIAC: Regular rate and rhythm. Normal S1, S2 heart sounds. Rate is slightly tachycardic. Distal pulses are intact to the radial and pedal sites and are 2+ and symmetric. No murmur appreciated. No peripheral edema noted. ABDOMEN: Soft, nontender, nondistended with normoactive bowel sounds. MUSCULOSKELETAL: There is no clubbing or cyanosis. There is active range of motion of all 4 extremities. SKIN: Appears warm and dry. NEUROLOGIC: Alert and oriented. Follows commands. No focal deficits. Cranial nerves II through XII are grossly intact. Heel to carranza is intact. No pronator drift. PSYCH: Affect is anxious. LABORATORY DATA AND DIAGNOSTIC STUDIES: CBC: WBC of 10.7, hemoglobin of 14.6 , hematocrit of 42, platelet count 217. D-dimer is 476. CMP: Sodium 134, potassium 3.9, chloride 96, BUN 23, creatinine 0.81, glucose 98, calcium 9, total bilirubin 0.4, AST 21, ALT 29, alk phos 86. Troponin 0.01. CRP 1.55. BNP 10. Albumin 3.7, TSH 3.38. Chest x-ray shows low lung volumes. Left lower lung zone airspace opacification is likely related to atelectasis, infiltrates could have similar appearance. Large hiatal hernia re-demonstrated. EKG shows normal sinus rhythm, no ST or T wave changes and EKGs are similar in appearance to previous EKG provided in June 2018. Old medical records were reviewed. ASSESSMENT AND PLAN: This is a 73-year-old male who presents today with significant chest pain, shortness of breath, dizziness, tachycardia and reported weakness of unclear etiology. He will be admitted to the telemetry unit for further observation. Plans are as follows: 1. Chest pain. His first troponin was 0.01. We will repeat the troponin and continue to trend it. He is currently denying chest pain. We will also trend EKGs, monitor him on telemetry. He does have a history of anxiety and GERD, so it is unclear what chest represents; however, we will monitor him and adjust plan of care accordingly. Of note, he does have elevated D-dimer and had a negative CTA in June, however, given his persistent tachycardia and concern for intermittent hypoxia here in the ER, it may be worthwhile to repeat this examination to rule out PE. 2. Abnormality on chest x-ray. He has received 1 dose of azithromycin. He is afebrile. He has no leukocytosis. He has no CRP elevation and his lung assessment is benign. We will hold on any further antibiotics at this time and await CT chest results. 3. Tachycardia. Unclear etiology. He does seem to have a history of sinus tachycardia. Again, there is no evidence of active infection as he is afebrile. Has no leukocytosis and other than chest pain, denies any recent cold or flu symptoms. He is actually hypertensive. Thyroid studies are normal and so the etiology of sinus tachycardia is a bit unclear. He does not need fluids at this time as he relaxes during the course of the assessment, I do note his heart rate came down. He is on metoprolol tartrate 100 mg b.i.d., which we will continue. Additionally, he may be having some arrhythmias given his chest pain and other complaints. I do note that he is on Thioridazine with no diagnosis to support being on this medication. I cannot find any history of schizophrenia or other mental illness, and I have touch based with the behavioral health unit. As he is on a very low dose of this medication, we will discontinue it; no indication for tapering a low dose of this medication. Monitor his QTc and tachycardia. 4. Hypertension. Continue home medications including metoprolol and losartan at current doses. May need to increase losartan for better blood pressure control. 5. Hiatal hernia. He follows with GI. He is on multiple medications that limit his symptoms. I do suspect the fact that the hiatal hernia does greatly contribute to his discomfort and his breathing and his tachypnea and palpitations. Continue home Protonix, famotidine. 8. History of BPH and urinary retention. Continue home Flomax and finasteride. 9. Anxiety and depression. Continue Zoloft, BuSpar, lorazepam. 10. Hypothyroidism. Continue home levothyroxine. TSH is within normal limits.. 11. FEN: He is ordered a low-sodium diet. 12. DVT prophylaxis: Subcu heparin and POLINA hose 13. Code status: He wishes to be a DNR/DNI. This was reviewed with him and updated on the copy of his MOLST. TIME SPENT: Approximately 50 minutes was spent on this admission with greater than half the time spent face to face with the patient obtaining history and physical, performing physical examination and reviewing plan of care. Plan of care was also reviewed with my attending, Dr. Clay, who is in agreement. MEI WHEELER NP [id number]/[facility] #: [id number] MADHAVI
[2019-07-11] MEDS ORDERED: Famotidine TAB* 20 MG PO SCH (21:00)
[2019-07-11] MEDS ORDERED: Pentoxifylline CR TAB* 400 MG PO SCH (21:00)
[2019-07-11] MEDS ORDERED: Metoprolol Tartrate TAB* 25 MG PO SCH (21:00)
[2019-07-11] MEDS: Tamsulosin CAP* 0.4 MG PO SCH (21:16)
[2019-07-11] MEDS: Pantoprazole TAB * 40 MG TAB PO SCH (21:17)
[2019-07-11] MEDS: LORazepam TAB(*) 0.5 MG PO SCH (21:17)
[2019-07-11] MEDS: Docusate CAP* 100 MG PO SCH (21:17)
[2019-07-11] MEDS: Senna TAB 8.6 mg* TAB PO SCH (21:18)
[2019-07-11] MEDS: Metoprolol Tartrate TAB* 100 MG TAB PO SCH (21:19)
[2019-07-11] MEDS: Pentoxifylline CR TAB* 400 MG PO SCH (21:20)
[2019-07-11] MEDS: Heparin VIAL(*) 5000 UNITS/ML VIAL (FIVE THOUSAND) SUBCUT SCH (21:24)
[2019-07-11] MEDS: Melatonin 3 MG TAB PO PRN (21:25)
[2019-07-11] MEDS: Ondansetron INJ* 2 MG/ML VIAL IV PRN (21:31)
[2019-07-11] MEDS ORDERED: Nitro Patch/OINT Remove TOPICAL ONE (23:00)
[2019-07-12] MEDS: Heparin VIAL(*) 5000 UNITS/ML VIAL (FIVE THOUSAND) SUBCUT SCH ×3 (05:29→21:24)
[2019-07-12] MEDS: Levothyroxine TAB* 125 MCG TAB PO SCH (05:29)
[2019-07-12] MEDS ORDERED: Levothyroxine TAB* 125 MCG TAB PO SCH (06:00)
[2019-07-12] MEDS: Sertraline* 100 MG TAB PO SCH (07:48)
[2019-07-12] MEDS: Tamsulosin CAP* 0.4 MG PO SCH ×2 (07:48→21:24)
[2019-07-12] MEDS: Losartan TAB* 25 MG PO SCH (07:48)
[2019-07-12] MEDS: Gabapentin CAP(*) 300 MG PO SCH ×3 (07:48→21:23)
[2019-07-12] MEDS: Atorvastatin* 40 MG TAB PO SCH (07:48)
[2019-07-12] MEDS: Polyethylene Glycol 3350* 17 GM PACKET PO SCH (07:48)
[2019-07-12] MEDS: busPIRone TAB* 10 MG PO SCH ×3 (07:48→21:23)
[2019-07-12] MEDS: Metoprolol Tartrate TAB* 100 MG TAB PO SCH ×2 (07:48→21:22)
[2019-07-12] MEDS: Cyanocobalamin TAB* 500 MCG PO SCH (07:49)
[2019-07-12] MEDS: Pantoprazole TAB * 40 MG TAB PO SCH ×2 (07:49→21:22)
[2019-07-12] MEDS: Acetaminophen TAB* 325 MG PO PRN ×2 (07:49→21:21)
[2019-07-12] MEDS: Finasteride TAB* 5 MG PO SCH (07:49)
[2019-07-12] MEDS: LORazepam TAB(*) 0.5 MG PO SCH ×2 (07:49→21:22)
[2019-07-12] MEDS: Multivitamins/Minerals TAB PO SCH (07:49)
[2019-07-12] MEDS: Pentoxifylline CR TAB* 400 MG PO SCH ×3 (07:50→21:29)
[2019-07-12] MEDS: Ondansetron INJ* 2 MG/ML VIAL IV PRN ×2 (07:54→21:45)
[2019-07-12] MEDS: Cyclobenzaprine TAB* 10 MG PO PRN ×2 (07:54→21:22)
[2019-07-12] MEDS ORDERED: Cyanocobalamin TAB* 500 MCG PO SCH (09:00)
[2019-07-12 10:01] LABS: Hematocrit 41 % (42-52); Hemoglobin 14.2 g/dL (14.0-18.0); Mean Corpuscular HGB Conc 35 g/dL (31-36); Mean Corpuscular Hemoglobin 33 pg (27-31); Mean Corpuscular Volume 95 fL (80-94); Mean Platelet Volume 6.4 fL (7.4-10.4); Platelet Count 218 10^3/uL (150-450); Red Blood Count 4.33 10^6 /uL (4.18-5.48); Red Cell Distribution Width 14 % (10-15); White Blood Count 9.6 10^3/uL (3.5-10.8)
[2019-07-12 10:09] LABS: Calcium 9.1 mg/dL (8.6-10.3); Potassium 4.6 mmol/L (3.5-5.0)
[2019-07-12 10:15] LABS: BUN/Creatinine Ratio 19.3 (8-20); EGFR African American 103.3 (>60); EGFR Non-African American 85.4 (>60)
[2019-07-12 10:29] LABS: ABS Eosinophils 0.1 10^3/ul (0-0.6); ABS Lymphocytes 2.8 10^3/ul (1.0-4.8); ABS Monocytes 0.8 10^3/ul (0-0.8); ABS Neutrophils 5.9 10^3/ul (1.5-7.7); Eosinophil % 1.2 %; Lymphocyte % 28.8 %
--- NOTE | 2019-07-12 12:33 | PN ---
Subjective Date of Service: 07/12/19 Interval History: Mr. Gasca is c/o SOB, denies cough, fever chills. He denies CP at this time, but does c/o epigastric pain. He states he is weak and is having trouble walking due to generalized weakness, but also states that he uses a wheelchair to get around at home. He has no other complaints today. Objective Active Medications: Acetaminophen (Tylenol Tab*) 650 mg PO Q8H PRN PRN Reason: MILD PAIN or TEMP > 100.4 Last Admin: 07/12/19 07:49 Dose: 650 mg Atorvastatin Calcium (Lipitor*) 40 mg PO DAILY [facility] Last Admin: 07/12/19 07:48 Dose: 40 mg Buspirone HCl (Buspar Tab*) 20 mg PO TID [facility] Last Admin: 07/12/19 07:48 Dose: 20 mg Cyanocobalamin (Vitamin B12 Tab*) 250 mcg PO DAILY [facility] Last Admin: 07/12/19 07:49 Dose: 250 mcg Cyclobenzaprine HCl (Flexeril Tab*) 10 mg PO Q8H PRN PRN Reason: muscle spasms Last Admin: 07/12/19 07:54 Dose: 10 mg Docusate Sodium (Colace Cap*) 100 mg PO BEDTIME [facility] Last Admin: 07/11/19 21:17 Dose: 100 mg Famotidine (Pepcid Tab*) 40 mg PO BEDTIME [facility] Last Admin: 07/11/19 21:18 Dose: 40 mg Ferrous Gluconate (Fergon Tab*) 324 mg PO Q72H [facility] Last Admin: 07/11/19 17:50 Dose: 324 mg Finasteride (Proscar Tab*) 5 mg PO DAILY [facility] Last Admin: 07/12/19 07:49 Dose: 5 mg Gabapentin (Neurontin Cap(*)) 300 mg PO TID [facility] Last Admin: 07/12/19 07:48 Dose: 300 mg Heparin Sodium (Porcine) (Heparin Vial(*)) 5,000 units SUBCUT Q8HR [facility] Last Admin: 07/12/19 05:29 Dose: 5,000 units Levothyroxine Sodium (Synthroid Tab*) 125 mcg PO DAILY@0600 [facility] Last Admin: 07/12/19 05:29 Dose: 125 mcg Lorazepam (Ativan Tab(*)) 0.5 mg PO BID [facility] Last Admin: 07/12/19 07:49 Dose: 0.5 mg Losartan Potassium (Cozaar Tab*) 25 mg PO DAILY [facility] Last Admin: 07/12/19 07:48 Dose: 25 mg Melatonin (Melatonin) 6 mg PO BEDTIME PRN PRN Reason: INSOMNIA Last Admin: 07/11/19 21:25 Dose: 6 mg Metoprolol Tartrate (Lopressor Tab*) 100 mg PO BID [facility] Last Admin: 07/12/19 07:48 Dose: 100 mg Multivitamins/Minerals (Theragran/Minerals Tab*) 1 tab PO DAILY [facility] Last Admin: 07/12/19 07:49 Dose: 1 tab Ondansetron HCl (Zofran Inj*) 4 mg IV Q6H PRN PRN Reason: NAUSEA/VOMITING Last Admin: 07/12/19 07:54 Dose: 4 mg Pantoprazole Sodium (Protonix Tab*) 40 mg PO BID [facility] Last Admin: 07/12/19 07:49 Dose: 40 mg Pentoxifylline (Trental Cr Tab*) 400 mg PO TID [facility] Last Admin: 07/12/19 07:50 Dose: 400 mg Polyethylene Glycol/Electrolytes (Miralax*) 17 gm PO DAILY [facility] Last Admin: 07/12/19 07:48 Dose: 17 gm Senna (Senokot 8.6 Mg Tab*) 2 tab PO BEDTIME [facility] Last Admin: 07/11/19 21:18 Dose: 2 tab Sertraline HCl (Zoloft*) 100 mg PO DAILY [facility] Last Admin: 07/12/19 07:48 Dose: 100 mg Tamsulosin HCl (Flomax Cap*) 0.4 mg PO BID [facility] Last Admin: 07/12/19 07:48 Dose: 0.4 mg Vital Signs: Temp Pulse Resp BP Pulse Ox 97.6 F 98 16 118/76 98 07/12/19 11:02 07/12/19 11:02 07/12/19 13:08 07/12/19 11:02 07/12/19 11:02 Oxygen Devices in Use Now: None Appearance: Mr. Gasca is an older white male who is sitting at the edge of bed. He is breathing comfortably on 2L O2; he appears comfortable and in no acute distress. Eyes: No Scleral Icterus, PERRLA Ears/Nose/Mouth/Throat: NL Teeth, Lips, Gums, Clear Oropharnyx, Mucous Membranes Moist Neck: NL Appearance and Movements; NL JVP, Trachea Midline Respiratory: Symmetrical Chest Expansion and Respiratory Effort, Clear to Auscultation Cardiovascular: NL Sounds; No Murmurs; No JVD, RRR, No Edema Extremities: No Edema, No Clubbing, Cyanosis Neurological: Alert and Oriented x 3, NL Muscle Strength and Tone Result Diagrams: 07/12/19 07:31 07/12/19 07:31 Microbiology and Other Data: Microbiology 07/11/19 16:32 Nasal Screen MRSA (PCR) - Final Nasal Mrsa Not Detected Assess/Plan/Problems-Billing Assessment: Mr. Gasca is a 73yom with PMHx HTN, HLD, sinus tachycardia who presented to the ER with chest pain, shortness of breath, dizziness, tachycardia. - Patient Problems (1) Chest pain Comment: -pt c/o chest pain and SOB at admission; denies CP currently, but does c/o epigastric pain -troponins negative x5; EKG without change from previous; no ST depression or elevation -Echo pending -ST Sunday (2) Shortness of breath Comment: -CP, SOB -BNP WNL -denies cough, fever chills -without leukocytosis, fever -CXR shows atelectasis vs infiltrate -CTA chest negative for PE with stable bibasilar atelectasis -incentive spirometry and wean O2 as able (3) Abnormal CXR Comment: -CXR shows atelectasis vs infiltrate -CTA of chest negative for PE and shows stable bibasilar atelectasis -incentive spirometry (4) Tachycardia Comment: -h/o chronic sinus tachycardia -no arrhythmia on tele -CTA chest negative for PE -continue home BB and follow up with Dr. Moreno outpatient (5) HTN (hypertension) Comment: -controlled with SBP 110-140's -continue losartan, metoprolol (6) Hiatal hernia Comment: -c/o epigastric pain, possibly GERD -will reschedule famotidine to 20 BID (from 40 at bedtime) -continue pantoprazole (7) Hypothyroid Comment: -continue levothyroxine (8) BPH (benign prostatic hyperplasia) Comment: -continue finasteride, tamsulosin (9) Anxiety and depression Comment: -continue home sertraline, lorazepam, buspirone (10) DVT prophylaxis Comment: -HSQ (11) DNR (do not resuscitate) Status and Disposition: Observation. Discharge when stable.
[2019-07-12] MEDS: Famotidine TAB* 20 MG PO SCH ×2 (13:08→21:23)
[2019-07-12] MEDS: Senna TAB 8.6 mg* TAB PO SCH (21:23)
[2019-07-12] MEDS: Docusate CAP* 100 MG PO SCH (21:23)
[2019-07-13] MEDS: Nitroglycerin TAB 0.3 MG* 0.3 MG TAB SL PRN ×2 (00:31→02:28)
[2019-07-13] MEDS: Heparin VIAL(*) 5000 UNITS/ML VIAL (FIVE THOUSAND) SUBCUT SCH ×3 (05:22→21:10)
[2019-07-13] MEDS: Levothyroxine TAB* 125 MCG TAB PO SCH (05:23)
[2019-07-13] MEDS: Ondansetron INJ* 2 MG/ML VIAL IV PRN ×2 (08:37→21:09)
[2019-07-13] MEDS: busPIRone TAB* 10 MG PO SCH ×3 (08:39→21:11)
[2019-07-13] MEDS: Metoprolol Tartrate TAB* 100 MG TAB PO SCH ×2 (08:39→21:11)
[2019-07-13] MEDS: Cyclobenzaprine TAB* 10 MG PO PRN ×2 (08:39→21:10)
[2019-07-13] MEDS: LORazepam TAB(*) 0.5 MG PO SCH ×2 (08:39→21:11)
[2019-07-13] MEDS: Famotidine TAB* 20 MG PO SCH ×2 (08:39→21:11)
[2019-07-13] MEDS: Atorvastatin* 40 MG TAB PO SCH (08:40)
[2019-07-13] MEDS: Pantoprazole TAB * 40 MG TAB PO SCH ×2 (08:40→21:11)
[2019-07-13] MEDS: Sertraline* 100 MG TAB PO SCH (08:40)
[2019-07-13] MEDS: Cyanocobalamin TAB* 500 MCG PO SCH (08:40)
[2019-07-13] MEDS: Tamsulosin CAP* 0.4 MG PO SCH ×2 (08:40→21:12)
[2019-07-13] MEDS: Finasteride TAB* 5 MG PO SCH (08:42)
[2019-07-13] MEDS: Losartan TAB* 25 MG PO SCH (08:42)
[2019-07-13] MEDS: Multivitamins/Minerals TAB PO SCH (08:42)
[2019-07-13] MEDS: Gabapentin CAP(*) 300 MG PO SCH ×3 (08:42→21:11)
[2019-07-13] MEDS: Pentoxifylline CR TAB* 400 MG PO SCH ×3 (08:43→21:12)
[2019-07-13] MEDS: Acetaminophen TAB* 325 MG PO PRN ×2 (08:43→21:10)
[2019-07-13] MEDS: Polyethylene Glycol 3350* 17 GM PACKET PO SCH (10:22)
[2019-07-13] MEDS ORDERED: Perflutren Lipid Microsphere* 3 ML VIAL ONE (13:32)
--- NOTE | 2019-07-13 15:40 | ECHO ---
*[facility]* [place] [address] Fax #: [phone] Transthoracic Echocardiogram Patient: Harinder Gasca : 1945 Study Date: 07/13/2019 Age: 73 Gender: M HR: 99 bpm Height: 70 in /177.8 cm BSA: 2.1 m^2 Weight: 201.6 lb /91.6 kg BMI: 29 kg/m^2 *Property Coordinator: * Danyell Escobar RDCS RN *Referring Physician: * Ofelia EldridgeReading Physician: * Barron Irene MD Indications: Chest Pain, unspecified. SOB. Congestive Heart Failure. History: Sinus tachycardia. Risk factors: Hypertension. Dyslipidemia. Conclusions Summary: - Left ventricle: The cavity size is normal by ESD,LAX measurement. Wall thickness is mildly to moderately increased. Systolic function is normal. The estimated ejection fraction is 55-60%. Wall motion is normal; there are no regional wall motion abnormalities. Doppler parameters are consistent with abnormal left ventricular relaxation (grade 1 diastolic dysfunction). - Left atrium: The atrium is mildly dilated. - Functionally benign heart valves. - Aortic root: The aortic root is mildly dilated at 4.0 cm. - Since the prior echocardiogram completed 09/27/16, prior normal aortic root measurement reported. Study data: Transthoracic echocardiogram. Procedure: Transthoracic echocardiography was performed. Image quality was fair. The study was technically limited due to body habitus. Intravenous Definity 3 ml was administered to enhance imaging. Complete 2D, spectral Doppler, and color flow Doppler. Location: Bedside. Patient status: Observation. Patient room number: 440. Rhythm: Normal sinus rhythm. Findings Left ventricle: The cavity size is normal by ESD,LAX measurement. Wall thickness is mildly to moderately increased. Systolic function is normal. The estimated ejection fraction is 55-60%. Wall motion is normal; there are no regional wall motion abnormalities. Doppler parameters are consistent with abnormal left ventricular relaxation (grade 1 diastolic dysfunction). Right ventricle: The cavity size is normal. Systolic function is normal. Left atrium: The atrium is mildly dilated. Right atrium: The atrium is normal in size. Mitral valve: The leaflets are mildly thickened. There is no evidence of stenosis. There is trace regurgitation. Aortic valve: Not well visualized. The leaflets are mildly thickened. There is no evidence of stenosis. There is trace to mild regurgitation. Tricuspid valve: The valve is structurally normal. There is no evidence of stenosis. There is physiologic regurgitation. Pulmonic valve: The valve is structurally normal. There is no evidence of stenosis. There is no regurgitation. Aorta: Aortic root: The aortic root is mildly dilated at 4.0 cm. Ascending aorta: The ascending aorta is not dilated. Aortic arch: The aortic arch is not dilated. Pericardium: There is no pericardial effusion. Pulmonary arteries: Not well visualized. Systolic pressure can not be accurately estimated. Systemic veins: Inferior vena cava: Not well visualized. Measurements Left ventricle Value Ref Right atrium continued Value Ref JS, LAX (L) 3.7 cm 4.2 - 5.8 SI dim, ES, A4C 4.3 cm 3.4 - 5.3 ESD, LAX 2.8 cm 2.5 - 4.0 Estimated RAP 8 mm Hg --------- FS, LAX (L) 24 % 25 - 43 PW, ED (H) 1.3 cm 0.6 - 1.0 Aortic valve Value Ref IVS/PW, ED 1.02 Hui diam, ED 2.0 cm --------- E', lat hui, TDI (L) 6.2 cm/sec >=10.0 Peak v, S 1.34 m/sec -- ------- E/e', lat hui, 8 VTI, S 26.7 cm ----- ---- TDI Mean grad, S 5.0 mm Hg --------- E', med hui, TDI 7.1 cm/sec >=7.0 Peak grad, S 7.0 mm Hg -- ------- E/e', med hui, 7 LVOT/AV, VTI ratio 0.67 ----- ---- TDI E', avg, TDI 6.7 cm/sec Mitral valve Value Ref E/e', avg, TDI 8 <=14 Peak E 0.5 m/sec -- ------- Peak A 0.87 m/sec --------- LVOT Value Ref Decel time 232 ms --------- Peak itzel, S 0.96 m/sec Peak E/A ratio 0.6 --------- VTI, S 17.8 cm Mean grad, S 2 mm Hg Pulmonic valve Value Ref Peak v, S 0.64 m/sec --------- Ventricular septum Value Ref Peak grad, S 2.0 mm Hg --------- IVS, ED (H) 1.3 cm 0.6 - 1.0 Aortic root Value Ref Right ventricle Value Ref Root diam 4.0 cm <4.2 JS, LAX 2.3 cm JS minor ax, 2.3 cm 1.9 - 3.5 Ascending aorta Value Ref A4C mid AAo AP diam, S 3.2 cm --------- Left atrium Value Ref Aortic arch Value Ref AP dim, ES 3.10 cm 3.00 - Arch diam 2.7 cm --------- 4.00 ML dim, A4C 4.8 cm Decending aorta Value Ref SI dim, A4C 6.2 cm Cindy peak itzel 0.44 m/sec --------- Vol/bsa, ES, 1-p (H) 41 ml/m^2 12 - 37 A4C Vol/bsa, ES, A/L (H) 39 ml/m^2 16 - 34 Right atrium Value Ref ML dim, ES, A4C 3.6 cm 2.6 - 4.4 Legend: (L) and (H) deshawn values outside specified reference range. Prepared and electronically signed by Barron Irene MD 07/13/2019 15:40
--- NOTE | 2019-07-13 16:58 | PN ---
Subjective Date of Service: 07/13/19 Interval History: Mr. Gasca states he is "not too good" today, further elaborating by saying that his breakfast was "messed up." When asked, he does continue to c/o intermittent CP that is not associated with eating, laying flat, or exertion. He does c/o JAIN. He feels generally weak. He has no other complaints today. Objective Active Medications: Acetaminophen (Tylenol Tab*) 650 mg PO Q8H PRN PRN Reason: MILD PAIN or TEMP > 100.4 Last Admin: 07/13/19 08:43 Dose: 650 mg Atorvastatin Calcium (Lipitor*) 40 mg PO DAILY [facility] Last Admin: 07/13/19 08:40 Dose: 40 mg Buspirone HCl (Buspar Tab*) 20 mg PO TID [facility] Last Admin: 07/13/19 14:25 Dose: 20 mg Cyanocobalamin (Vitamin B12 Tab*) 250 mcg PO DAILY [facility] Last Admin: 07/13/19 08:40 Dose: 250 mcg Cyclobenzaprine HCl (Flexeril Tab*) 10 mg PO Q8H PRN PRN Reason: muscle spasms Last Admin: 07/13/19 08:39 Dose: 10 mg Docusate Sodium (Colace Cap*) 100 mg PO BEDTIME [facility] Last Admin: 07/12/19 21:23 Dose: 100 mg Famotidine (Pepcid Tab*) 20 mg PO BID [facility] Last Admin: 07/13/19 08:39 Dose: 20 mg Ferrous Gluconate (Fergon Tab*) 324 mg PO Q72H [facility] Last Admin: 07/11/19 17:50 Dose: 324 mg Finasteride (Proscar Tab*) 5 mg PO DAILY [facility] Last Admin: 07/13/19 08:42 Dose: 5 mg Gabapentin (Neurontin Cap(*)) 300 mg PO TID [facility] Last Admin: 07/13/19 14:25 Dose: 300 mg Heparin Sodium (Porcine) (Heparin Vial(*)) 5,000 units SUBCUT Q8HR [facility] Last Admin: 07/13/19 14:27 Dose: 5,000 units Levothyroxine Sodium (Synthroid Tab*) 125 mcg PO DAILY@0600 [facility] Last Admin: 07/13/19 05:23 Dose: 125 mcg Lorazepam (Ativan Tab(*)) 0.5 mg PO BID [facility] Last Admin: 07/13/19 08:39 Dose: 0.5 mg Losartan Potassium (Cozaar Tab*) 25 mg PO DAILY [facility] Last Admin: 07/13/19 08:42 Dose: 25 mg Melatonin (Melatonin) 6 mg PO BEDTIME PRN PRN Reason: INSOMNIA Last Admin: 07/11/19 21:25 Dose: 6 mg Metoprolol Tartrate (Lopressor Tab*) 100 mg PO BID [facility] Last Admin: 07/13/19 08:39 Dose: 100 mg Multivitamins/Minerals (Theragran/Minerals Tab*) 1 tab PO DAILY [facility] Last Admin: 07/13/19 08:42 Dose: 1 tab Nitroglycerin (Nitroglycerin Tab 0.3 Mg*) 0.3 mg SL Q5M PRN PRN Reason: ANGINA Last Admin: 07/13/19 02:28 Dose: 0.3 mg Ondansetron HCl (Zofran Inj*) 4 mg IV Q6H PRN PRN Reason: NAUSEA/VOMITING Last Admin: 07/13/19 08:37 Dose: 4 mg Pantoprazole Sodium (Protonix Tab*) 40 mg PO BID [facility] Last Admin: 07/13/19 08:40 Dose: 40 mg Pentoxifylline (Trental Cr Tab*) 400 mg PO TID [facility] Last Admin: 07/13/19 14:26 Dose: 400 mg Polyethylene Glycol/Electrolytes (Miralax*) 17 gm PO DAILY [facility] Last Admin: 07/13/19 10:22 Dose: Not Given Senna (Senokot 8.6 Mg Tab*) 2 tab PO BEDTIME [facility] Last Admin: 07/12/19 21:23 Dose: 2 tab Sertraline HCl (Zoloft*) 100 mg PO DAILY [facility] Last Admin: 07/13/19 08:40 Dose: 100 mg Tamsulosin HCl (Flomax Cap*) 0.4 mg PO BID [facility] Last Admin: 07/13/19 08:40 Dose: 0.4 mg Vital Signs: Temp Pulse Resp BP Pulse Ox 97.3 F 100 16 136/85 94 07/13/19 15:15 07/13/19 15:15 07/13/19 15:15 07/13/19 15:15 07/13/19 15:15 Oxygen Devices in Use Now: None Appearance: Mr. Gasca is an older white male who is sitting up in bed. He appears to be in no acute distress. Breathing comfortably on room air. Eyes: No Scleral Icterus, PERRLA Ears/Nose/Mouth/Throat: NL Teeth, Lips, Gums, Clear Oropharnyx, Mucous Membranes Moist Neck: NL Appearance and Movements; NL JVP, Trachea Midline Respiratory: Symmetrical Chest Expansion and Respiratory Effort, Clear to Auscultation Cardiovascular: NL Sounds; No Murmurs; No JVD, RRR, No Edema Abdominal: No Hepatosplenomegaly, - - BS in all quadrants; TTP in epigastric area only Extremities: No Edema, No Clubbing, Cyanosis Neurological: Alert and Oriented x 3 Result Diagrams: 07/12/19 07:31 07/12/19 07:31 Microbiology and Other Data: Microbiology 07/11/19 16:32 Nasal Screen MRSA (PCR) - Final Nasal Mrsa Not Detected Assess/Plan/Problems-Billing Assessment: Mr. Gasca is a 73yom with PMHx HTN, HLD, sinus tachycardia who presented to the ER with chest pain, shortness of breath, dizziness, tachycardia. - Patient Problems (1) Chest pain Comment: -pt c/o chest pain and SOB at admission; denies CP currently, but does c/o epigastric pain -troponins negative x5; EKG without change from previous; no ST depression or elevation -Echo pending -ST Sunday (2) Shortness of breath Comment: -CP, SOB -pulm exam normal; no longer requiring supplemental O2 -BNP WNL -denies cough, fever chills -without leukocytosis, fever -CXR shows atelectasis vs infiltrate -CTA chest negative for PE with stable bibasilar atelectasis -incentive spirometry (3) Tachycardia Comment: -h/o chronic sinus tachycardia -no arrhythmia on tele -CTA chest negative for PE -continue home BB and follow up with Dr. Moreno outpatient (4) HTN (hypertension) Comment: -controlled with SBP 110-130's -continue losartan, metoprolol (5) Hiatal hernia Comment: -c/o epigastric pain, possibly GERD -rescheduled famotidine to 20 BID (from 40 at bedtime) -continue pantoprazole (6) Hypothyroid Comment: -continue levothyroxine (7) BPH (benign prostatic hyperplasia) Comment: -continue finasteride, tamsulosin (8) Anxiety and depression Comment: -continue home sertraline, lorazepam, buspirone (9) DVT prophylaxis Comment: -HSQ (10) DNR (do not resuscitate) Status and Disposition: Observation. Discharge when stable.
[2019-07-13] MEDS: Senna TAB 8.6 mg* TAB PO SCH (21:10)
[2019-07-13] MEDS: Docusate CAP* 100 MG PO SCH (21:10)
[2019-07-13] MEDS: Melatonin 3 MG TAB PO PRN (21:10)
[2019-07-14] MEDS: Heparin VIAL(*) 5000 UNITS/ML VIAL (FIVE THOUSAND) SUBCUT SCH ×3 (05:17→22:29)
[2019-07-14] MEDS: Levothyroxine TAB* 125 MCG TAB PO SCH (05:17)
[2019-07-14] MEDS: Gabapentin CAP(*) 300 MG PO SCH ×3 (07:21→20:16)
[2019-07-14] MEDS: Tamsulosin CAP* 0.4 MG PO SCH ×2 (07:22→20:17)
[2019-07-14] MEDS: Losartan TAB* 25 MG PO SCH (07:22)
[2019-07-14] MEDS: Metoprolol Tartrate TAB* 100 MG TAB PO SCH ×2 (07:22→20:16)
[2019-07-14] MEDS: Finasteride TAB* 5 MG PO SCH (07:22)
[2019-07-14] MEDS: Pantoprazole TAB * 40 MG TAB PO SCH ×2 (07:22→20:17)
[2019-07-14] MEDS: Atorvastatin* 40 MG TAB PO SCH (07:22)
[2019-07-14] MEDS: Acetaminophen TAB* 325 MG PO PRN ×3 (07:22→22:30)
[2019-07-14] MEDS: LORazepam TAB(*) 0.5 MG PO SCH ×2 (07:22→20:16)
[2019-07-14] MEDS: Multivitamins/Minerals TAB PO SCH (07:22)
[2019-07-14] MEDS: Cyanocobalamin TAB* 500 MCG PO SCH (07:22)
[2019-07-14] MEDS: Famotidine TAB* 20 MG PO SCH ×2 (07:22→20:15)
[2019-07-14] MEDS: Pentoxifylline CR TAB* 400 MG PO SCH (07:22)
[2019-07-14] MEDS: busPIRone TAB* 10 MG PO SCH ×3 (07:22→20:15)
[2019-07-14] MEDS: Sertraline* 100 MG TAB PO SCH (07:22)
[2019-07-14] MEDS: Ondansetron INJ* 2 MG/ML VIAL IV PRN ×3 (07:23→20:17)
[2019-07-14] MEDS: Polyethylene Glycol 3350* 17 GM PACKET PO SCH (07:23)
[2019-07-14] MEDS ORDERED: Regadenoson* 0.4 MG/5 ML SYRINGE ONE (08:57)
--- NOTE | 2019-07-14 13:05 | PN ---
Subjective Date of Service: 07/14/19 Interval History: stress test canceled/postponed as he got his pentoxifflin at 7am. It needed to be held by at least 12 hours. Complaint of SOB, pain that started in his chest and then went into "his heart" (none today or yesterday). Aching pain in his b/l legs for about 1 month. Tachycardia since "age 7". No cough, fevers, chills, abdominal pain. Objective Active Medications: Acetaminophen (Tylenol Tab*) 650 mg PO Q8H PRN PRN Reason: MILD PAIN or TEMP > 100.4 Last Admin: 07/14/19 07:22 Dose: 650 mg Atorvastatin Calcium (Lipitor*) 40 mg PO DAILY [facility] Last Admin: 07/14/19 07:22 Dose: 40 mg Buspirone HCl (Buspar Tab*) 20 mg PO TID [facility] Last Admin: 07/14/19 07:22 Dose: 20 mg Cyanocobalamin (Vitamin B12 Tab*) 250 mcg PO DAILY [facility] Last Admin: 07/14/19 07:22 Dose: 250 mcg Cyclobenzaprine HCl (Flexeril Tab*) 10 mg PO Q8H PRN PRN Reason: muscle spasms Last Admin: 07/13/19 21:10 Dose: 10 mg Docusate Sodium (Colace Cap*) 100 mg PO BEDTIME [facility] Last Admin: 07/13/19 21:10 Dose: 100 mg Famotidine (Pepcid Tab*) 20 mg PO BID [facility] Last Admin: 07/14/19 07:22 Dose: 20 mg Ferrous Gluconate (Fergon Tab*) 324 mg PO Q72H [facility] Last Admin: 07/11/19 17:50 Dose: 324 mg Finasteride (Proscar Tab*) 5 mg PO DAILY [facility] Last Admin: 07/14/19 07:22 Dose: 5 mg Gabapentin (Neurontin Cap(*)) 300 mg PO TID [facility] Last Admin: 07/14/19 07:21 Dose: 300 mg Heparin Sodium (Porcine) (Heparin Vial(*)) 5,000 units SUBCUT Q8HR [facility] Last Admin: 07/14/19 05:17 Dose: 5,000 units Levothyroxine Sodium (Synthroid Tab*) 125 mcg PO DAILY@0600 [facility] Last Admin: 07/14/19 05:17 Dose: 125 mcg Lorazepam (Ativan Tab(*)) 0.5 mg PO BID [facility] Last Admin: 07/14/19 07:22 Dose: 0.5 mg Losartan Potassium (Cozaar Tab*) 25 mg PO DAILY [facility] Last Admin: 07/14/19 07:22 Dose: 25 mg Melatonin (Melatonin) 6 mg PO BEDTIME PRN PRN Reason: INSOMNIA Last Admin: 07/13/19 21:10 Dose: 6 mg Metoprolol Tartrate (Lopressor Tab*) 100 mg PO BID [facility] Last Admin: 07/14/19 07:22 Dose: 100 mg Multivitamins/Minerals (Theragran/Minerals Tab*) 1 tab PO DAILY [facility] Last Admin: 07/14/19 07:22 Dose: 1 tab Nitroglycerin (Nitroglycerin Tab 0.3 Mg*) 0.3 mg SL Q5M PRN PRN Reason: ANGINA Last Admin: 07/13/19 02:28 Dose: 0.3 mg Ondansetron HCl (Zofran Inj*) 4 mg IV Q6H PRN PRN Reason: NAUSEA/VOMITING Last Admin: 07/14/19 07:23 Dose: 4 mg Pantoprazole Sodium (Protonix Tab*) 40 mg PO BID [facility] Last Admin: 07/14/19 07:22 Dose: 40 mg Polyethylene Glycol/Electrolytes (Miralax*) 17 gm PO DAILY [facility] Last Admin: 07/14/19 07:23 Dose: Not Given Senna (Senokot 8.6 Mg Tab*) 2 tab PO BEDTIME [facility] Last Admin: 07/13/19 21:10 Dose: 2 tab Sertraline HCl (Zoloft*) 100 mg PO DAILY [facility] Last Admin: 07/14/19 07:22 Dose: 100 mg Tamsulosin HCl (Flomax Cap*) 0.4 mg PO BID [facility] Last Admin: 07/14/19 07:22 Dose: 0.4 mg Vital Signs - 8 hr 07/14/19 07/14/19 07/14/19 06:12 07:15 07:21 Temperature 97.6 F Pulse Rate 87 Respiratory 16 18 18 Rate Blood Pressure 149/97 (mmHg) O2 Sat by Pulse 95 Oximetry 07/14/19 07/14/19 07:22 11:15 Temperature 97.4 F Pulse Rate 98 Respiratory 18 Rate Blood Pressure 148/87 (mmHg) O2 Sat by Pulse 96 Oximetry Oxygen Devices in Use Now: None Appearance: NAD Eyes: No Scleral Icterus Neck: NL Appearance and Movements; NL JVP Respiratory: Symmetrical Chest Expansion and Respiratory Effort Cardiovascular: NL Sounds; No Murmurs; No JVD Abdominal: NL Sounds; No Tenderness; No Distention Extremities: No Edema Skin: No Rash or Ulcers Neurological: Alert and Oriented x 3, - - pain and some weakness with some hip flexion strength testing. Nutrition: Taking PO's Result Diagrams: 07/12/19 07:31 07/12/19 07:31 Microbiology and Other Data: Microbiology 07/11/19 16:32 Nasal Screen MRSA (PCR) - Final Nasal Mrsa Not Detected Assess/Plan/Problems-Billing Assessment: 73 yo male PMH HTN, HLD, sinus tachycardia, cognitive delay, RLS who was referred from Cardiology office (Dr. Moreno) with report of weeks of chest pain, shortness of breath, dizziness, tachycardia. Pending nuclear stress test. Complaint of aching leg pain. - Patient Problems (1) Chest pain Current Visit: No Status: Acute Code(s): R07.9 - CHEST PAIN, UNSPECIFIED SNOMED Code(s): 31036186 Comment: -pt c/o chest pain and SOB at admission (and for weeks); Was sent to ED via EMS by Dr. Moreno. - denies CP currently, -troponins negative x5; EKG without change from previous; no ST depression or elevation -Echo with no regional wall motion abnormalities, pEF, G1DD -Stress test delayed until 07/15 as he had received his pentaxafillin this AM. (2) Shortness of breath Current Visit: Yes Status: Acute Code(s): R06.02 - SHORTNESS OF BREATH SNOMED Code(s): 425748532 Comment: -CP, SOB -pulm exam normal; no longer requiring supplemental O2 -BNP WNL -denies cough, fever chills -without leukocytosis, fever -CXR shows atelectasis vs infiltrate -CTA chest negative for PE with stable bibasilar atelectasis -incentive spirometry (3) Hiatal hernia Current Visit: Yes Status: Acute Code(s): K44.9 - DIAPHRAGMATIC HERNIA WITHOUT OBSTRUCTION OR GANGRENE SNOMED Code(s): 23683176 Comment: -follows with Dr. Vargas recently - there is no plan for surgical correction. -famotidine 20 BID (was 40 at bedtime at home) -continue pantoprazole (4) Bilateral leg pain Current Visit: No Status: Acute Code(s): M79.604 - PAIN IN RIGHT LEG; M79.605 - PAIN IN LEFT LEG SNOMED Code(s): 16871433 Comment: aching pain with ambulation. Get ALIA to rule out claudication. Can' t find any previous ALIA or lower extremity angiogram studies in past but is taking pentoxifylline so might have been suspected by some provide in the past. PT (5) Tachycardia Current Visit: No Status: Acute Code(s): R00.0 - TACHYCARDIA, UNSPECIFIED SNOMED Code(s): 5799890 Comment: -h/o chronic sinus tachycardia -no arrhythmia on tele -CTA chest negative for PE -continue home BB and follow up with Dr. Moreno outpatient (6) HTN (hypertension) Current Visit: No Status: Acute Code(s): I10 - ESSENTIAL (PRIMARY) HYPERTENSION SNOMED Code(s): 92340183 Comment: -SBP 140-150's -continue losartan, metoprolol (7) Hypothyroid Current Visit: No Status: Acute Code(s): E03.9 - HYPOTHYROIDISM, UNSPECIFIED SNOMED Code(s): 10333213 Comment: -continue levothyroxine (8) DNR (do not resuscitate) Current Visit: Yes Status: Acute (9) Abnormal CXR Current Visit: Yes Status: Acute Code(s): R93.89 - ABNORMAL FINDINGS ON DX IMAGING OF OTH BODY STRUCTURES SNOMED Code(s): 411310869 Comment: -CXR shows atelectasis vs infiltrate -CTA of chest negative for PE and shows stable bibasilar atelectasis -incentive spirometry (10) Anxiety and depression Current Visit: Yes Status: Acute Code(s): F41.9 - ANXIETY DISORDER, UNSPECIFIED; F32.9 - MAJOR DEPRESSIVE DISORDER, SINGLE EPISODE, UNSPECIFIED SNOMED Code(s): 685201668 Comment: -continue home sertraline, lorazepam, buspirone (11) BPH (benign prostatic hyperplasia) Current Visit: Yes Status: Acute Code(s): N40.0 - BENIGN PROSTATIC HYPERPLASIA WITHOUT LOWER URINRY TRACT SYMP SNOMED Code(s): 368538597 Comment: -continue finasteride, tamsulosin Status and Disposition: Observation. Discharge after stress test back to [facility]
[2019-07-14] MEDS: Cyclobenzaprine TAB* 10 MG PO PRN ×2 (14:22→22:29)
[2019-07-14] MEDS: Ferrous Gluconate TAB* 324 MG TAB PO SCH (16:32)
[2019-07-14] MEDS: Docusate CAP* 100 MG PO SCH (20:15)
[2019-07-14] MEDS: Senna TAB 8.6 mg* TAB PO SCH (20:16)
[2019-07-15] MEDS: Heparin VIAL(*) 5000 UNITS/ML VIAL (FIVE THOUSAND) SUBCUT SCH ×3 (05:16→21:32)
[2019-07-15] MEDS: Levothyroxine TAB* 125 MCG TAB PO SCH (05:17)
[2019-07-15] MEDS: Famotidine TAB* 20 MG PO SCH ×2 (09:20→21:34)
[2019-07-15] MEDS: Metoprolol Tartrate TAB* 100 MG TAB PO SCH ×2 (11:32→21:35)
[2019-07-15] MEDS ORDERED: Regadenoson* 0.4 MG/5 ML SYRINGE ONE (11:35)
[2019-07-15] MEDS: Losartan TAB* 25 MG PO SCH (13:01)
[2019-07-15] MEDS: Multivitamins/Minerals TAB PO SCH (13:04)
[2019-07-15] MEDS: Atorvastatin* 40 MG TAB PO SCH (13:04)
[2019-07-15] MEDS: Gabapentin CAP(*) 300 MG PO SCH ×3 (13:04→21:33)
[2019-07-15] MEDS: Sertraline* 100 MG TAB PO SCH (13:04)
[2019-07-15] MEDS: busPIRone TAB* 10 MG PO SCH ×3 (13:05→21:33)
[2019-07-15] MEDS: Tamsulosin CAP* 0.4 MG PO SCH ×2 (13:05→21:34)
[2019-07-15] MEDS: Cyanocobalamin TAB* 500 MCG PO SCH (13:05)
[2019-07-15] MEDS: LORazepam TAB(*) 0.5 MG PO SCH ×2 (13:05→21:34)
[2019-07-15] MEDS: Finasteride TAB* 5 MG PO SCH (13:05)
[2019-07-15] MEDS: Polyethylene Glycol 3350* 17 GM PACKET PO SCH (13:06)
[2019-07-15] MEDS: Pantoprazole TAB * 40 MG TAB PO SCH ×2 (13:07→21:35)
[2019-07-15] MEDS: Cyclobenzaprine TAB* 10 MG PO PRN ×2 (13:11→21:34)
[2019-07-15] MEDS: Acetaminophen TAB* 325 MG PO PRN ×2 (13:12→21:34)
--- NOTE | 2019-07-15 15:31 | PN ---
Subjective Date of Service: 07/15/19 Interval History: no acute events overnight. No chest pain or SOB today. stress test was intermediate risk with EF 48% and moderate area of stress induced ischemia, with hypokinesis at lateral and inferior saldivar. Dr. Cruz was consulted and recommended medical management with follow-up with Dr. Moreno - It is a relatively small area of myocardium. His ABIs yesterday were noncompressible conistent with atherscelorsis. It was too late to discharge back to [facility]. In meantime will CT angiogram of lower extremities for suspected claudication. He says the pentoxifylline was started by Dr. Peters for RLS after previously being on requip. Objective Active Medications: Acetaminophen (Tylenol Tab*) 650 mg PO Q8H PRN PRN Reason: MILD PAIN or TEMP > 100.4 Last Admin: 07/15/19 13:12 Dose: 650 mg Atorvastatin Calcium (Lipitor*) 40 mg PO DAILY [facility] Last Admin: 07/15/19 13:04 Dose: 40 mg Buspirone HCl (Buspar Tab*) 20 mg PO TID [facility] Last Admin: 07/15/19 14:21 Dose: Not Given Cyanocobalamin (Vitamin B12 Tab*) 250 mcg PO DAILY [facility] Last Admin: 07/15/19 13:05 Dose: 250 mcg Cyclobenzaprine HCl (Flexeril Tab*) 10 mg PO Q8H PRN PRN Reason: muscle spasms Last Admin: 07/15/19 13:11 Dose: 10 mg Docusate Sodium (Colace Cap*) 100 mg PO BEDTIME [facility] Last Admin: 07/14/19 20:15 Dose: 100 mg Famotidine (Pepcid Tab*) 20 mg PO BID [facility] Last Admin: 07/15/19 09:20 Dose: 20 mg Ferrous Gluconate (Fergon Tab*) 324 mg PO Q72H [facility] Last Admin: 07/14/19 16:32 Dose: 324 mg Finasteride (Proscar Tab*) 5 mg PO DAILY [facility] Last Admin: 07/15/19 13:05 Dose: 5 mg Gabapentin (Neurontin Cap(*)) 300 mg PO TID [facility] Last Admin: 07/15/19 14:21 Dose: Not Given Heparin Sodium (Porcine) (Heparin Vial(*)) 5,000 units SUBCUT Q8HR [facility] Last Admin: 07/15/19 13:04 Dose: 5,000 units Levothyroxine Sodium (Synthroid Tab*) 125 mcg PO DAILY@0600 [facility] Last Admin: 07/15/19 05:17 Dose: 125 mcg Lorazepam (Ativan Tab(*)) 0.5 mg PO BID [facility] Last Admin: 07/15/19 13:05 Dose: 0.5 mg Losartan Potassium (Cozaar Tab*) 25 mg PO DAILY [facility] Last Admin: 07/15/19 13:01 Dose: 25 mg Melatonin (Melatonin) 6 mg PO BEDTIME PRN PRN Reason: INSOMNIA Last Admin: 07/13/19 21:10 Dose: 6 mg Metoprolol Tartrate (Lopressor Tab*) 100 mg PO BID [facility] Last Admin: 07/15/19 11:32 Dose: 100 mg Multivitamins/Minerals (Theragran/Minerals Tab*) 1 tab PO DAILY [facility] Last Admin: 07/15/19 13:04 Dose: 1 tab Nitroglycerin (Nitroglycerin Tab 0.3 Mg*) 0.3 mg SL Q5M PRN PRN Reason: ANGINA Last Admin: 07/13/19 02:28 Dose: 0.3 mg Ondansetron HCl (Zofran Inj*) 4 mg IV Q6H PRN PRN Reason: NAUSEA/VOMITING Last Admin: 07/14/19 20:17 Dose: 4 mg Pantoprazole Sodium (Protonix Tab*) 40 mg PO BID [facility] Last Admin: 07/15/19 13:07 Dose: 40 mg Polyethylene Glycol/Electrolytes (Miralax*) 17 gm PO DAILY [facility] Last Admin: 07/15/19 13:06 Dose: Not Given Senna (Senokot 8.6 Mg Tab*) 2 tab PO BEDTIME [facility] Last Admin: 07/14/19 20:16 Dose: 2 tab Sertraline HCl (Zoloft*) 100 mg PO DAILY [facility] Last Admin: 07/15/19 13:04 Dose: 100 mg Tamsulosin HCl (Flomax Cap*) 0.4 mg PO BID [facility] Last Admin: 07/15/19 13:05 Dose: 0.4 mg Vital Signs - 8 hr 07/15/19 07/15/19 07/15/19 08:00 11:25 13:04 Temperature 97.4 F Pulse Rate 87 Respiratory 20 20 17 Rate Blood Pressure 141/91 (mmHg) O2 Sat by Pulse 93 Oximetry 07/15/19 07/15/19 13:05 13:11 Temperature Pulse Rate Respiratory 19 17 Rate Blood Pressure (mmHg) O2 Sat by Pulse Oximetry Oxygen Devices in Use Now: None Appearance: NAD Eyes: No Scleral Icterus Ears/Nose/Mouth/Throat: NL Teeth, Lips, Gums Neck: NL Appearance and Movements; NL JVP Respiratory: Symmetrical Chest Expansion and Respiratory Effort, Clear to Auscultation Cardiovascular: NL Sounds; No Murmurs; No JVD Abdominal: NL Sounds; No Tenderness; No Distention Extremities: No Edema Skin: No Rash or Ulcers Neurological: Alert and Oriented x 3 Nutrition: Taking PO's Result Diagrams: 07/12/19 07:31 07/12/19 07:31 Microbiology and Other Data: Microbiology 07/11/19 16:32 Nasal Screen MRSA (PCR) - Final Nasal Mrsa Not Detected Assess/Plan/Problems-Billing Assessment: 73 yo male PMH HTN, HLD, sinus tachycardia, cognitive delay, RLS who was referred from Cardiology office (Dr. Moreno) with report of weeks of chest pain, shortness of breath, dizziness, tachycardia. Nuclear stress test with moderate region of stress induced ischemia. Complaint of chronic aching leg pain with ambulation and ABIs noncompressible. CT angiogram lower extremities ordered. - Patient Problems (1) Chest pain Current Visit: No Status: Acute Code(s): R07.9 - CHEST PAIN, UNSPECIFIED SNOMED Code(s): 63398665 Comment: -pt c/o chest pain and SOB at admission (and intermittently for weeks); Was sent to ED via EMS by Dr. Moreno from his office - denies CP currently, -troponins negative x5; EKG without change from previous; no ST depression or elevation -Echo with no regional wall motion abnormalities, pEF, G1DD - Nuclear Stress test delayed until 07/15 as he had received his pentaxafillin this AM. Today it was intermediate risk with EF 48% and moderate area of stress induced ischemia, with hypokinesis at lateral and inferior saldivar. Dr. Cruz was consulted and recommended medical management (add aspirin and possibly amlodipine, full recs to follow) with follow-up with Dr. Moreno. Of note it is a relatively small area of myocardium. add A1c to AM labs (2) Bilateral leg pain Current Visit: No Status: Acute Code(s): M79.604 - PAIN IN RIGHT LEG; M79.605 - PAIN IN LEFT LEG SNOMED Code(s): 78916843 Comment: chronic aching pain with ambulation. His ABIs yesterday were noncompressible conistent with atherscelorsis. It was too late to discharge back to [facility]. In meantime will CT angiogram of lower extremities for suspected claudication. He says the pentoxifylline was started by Dr. Peters for RLS after previously being on requip. (3) Shortness of breath Current Visit: Yes Status: Acute Code(s): R06.02 - SHORTNESS OF BREATH SNOMED Code(s): 084394451 Comment: - positive stress test -pulm exam normal; no longer requiring supplemental O2 -BNP WNL -denies cough, fever chills -without leukocytosis, fever -CXR shows atelectasis vs infiltrate -CTA chest negative for PE with stable bibasilar atelectasis -incentive spirometry (4) Hiatal hernia Current Visit: Yes Status: Acute Code(s): K44.9 - DIAPHRAGMATIC HERNIA WITHOUT OBSTRUCTION OR GANGRENE SNOMED Code(s): 44981057 Comment: -follows with Dr. Vargas recently - there is no plan for surgical correction. -famotidine 20 BID (was 40 at bedtime at home) -continue pantoprazole (5) Tachycardia Current Visit: No Status: Acute Code(s): R00.0 - TACHYCARDIA, UNSPECIFIED SNOMED Code(s): 5582252 Comment: -h/o chronic sinus tachycardia -no arrhythmia on tele -CTA chest negative for PE -continue home BB and follow up with Dr. Moreno outpatient - adding amlodipine for additional anti anginal. (6) HTN (hypertension) Current Visit: No Status: Acute Code(s): I10 - ESSENTIAL (PRIMARY) HYPERTENSION SNOMED Code(s): 56211383 Comment: -SBP 140 -continue metoprolol tartrate 100mg BID. Add amlodipine 5mg for antianginal, stop losartan. (7) Hypothyroid Current Visit: No Status: Acute Code(s): E03.9 - HYPOTHYROIDISM, UNSPECIFIED SNOMED Code(s): 90564953 Comment: -continue levothyroxine (8) DNR (do not resuscitate) Current Visit: Yes Status: Acute (9) Abnormal CXR Current Visit: Yes Status: Acute Code(s): R93.89 - ABNORMAL FINDINGS ON DX IMAGING OF OTH BODY STRUCTURES SNOMED Code(s): 575596546 Comment: -CXR shows atelectasis vs infiltrate -CTA of chest negative for PE and shows stable bibasilar atelectasis -incentive spirometry (10) Anxiety and depression Current Visit: Yes Status: Acute Code(s): F41.9 - ANXIETY DISORDER, UNSPECIFIED; F32.9 - MAJOR DEPRESSIVE DISORDER, SINGLE EPISODE, UNSPECIFIED SNOMED Code(s): 212641889 Comment: -continue home sertraline, lorazepam, buspirone (11) BPH (benign prostatic hyperplasia) Current Visit: Yes Status: Acute Code(s): N40.0 - BENIGN PROSTATIC HYPERPLASIA WITHOUT LOWER URINRY TRACT SYMP SNOMED Code(s): 951768635 Comment: -continue finasteride, tamsulosin Status and Disposition: Inpatient. Too late to discharge back to [facility] after failed stress test. Planned back on 07/16.
[2019-07-15] MEDS ORDERED: Iohexol 350* (CONTRAST) 500 ML MDV IV ONE (18:36)
[2019-07-15] MEDS: Ondansetron INJ* 2 MG/ML VIAL IV PRN (19:14)
[2019-07-15] MEDS: Melatonin 3 MG TAB PO PRN (21:34)
[2019-07-15] MEDS: Pentoxifylline CR TAB* 400 MG PO SCH (21:35)
[2019-07-15] MEDS: Aspirin 81 mg CHEW TAB* 81 MG TAB.CHEW PO SCH (21:35)
[2019-07-15] MEDS: Senna TAB 8.6 mg* TAB PO SCH (21:36)
[2019-07-15] MEDS: Docusate CAP* 100 MG PO SCH (21:36)
--- NOTE | 2019-07-16 03:45 | CONS ---
CC: Dr. Marilu Garcia; Dr. Moreno * CARDIOLOGY CONSULTATION: DATE OF CONSULT: 07/15/19 INDICATION FOR CONSULTATION: Chest pain and abnormal stress test. HISTORY OF PRESENT ILLNESS: The patient is a 73-year-old gentleman with a history of tachycardia, who went to see Dr. Moreno on 07/11/19, at which time he was stating that he was having the episodes of chest pain in the central sternal area and unable to take a deep breath. The patient was admitted to [facility] for evaluation. The patient ruled out for a myocardial infarction. His EKG did not show any acute ischemic changes. The CTA of his chest was negative for pulmonary embolism while it was significant for a large hiatal hernia. His EKG showed normal sinus rhythm at a heart rate of 101 beats per minute, otherwise unremarkable. The patient ruled out for a myocardial infarction. The patient underwent a chemical nuclear stress test here in the hospital. I personally reviewed the images. His nuclear images show a [id number] area of ischemia to his inferolateral wall. His LV function was normal, calculated ejection fraction 48%; however, on viewing the gated images, his ejection fraction was at least 55%. I see no focal wall motion abnormalities. His TID is normal at 0.99. When I spoke to the patient this evening, it was difficult to get an accurate assessment of the patient's chest pain. The patient has diminished mental capacity and is unable to give specific accounts of his episodes of chest pain. He states occasionally he does have chest pain. It is in the center of his chest. He does not know if this is associated with exertion. He is not sure if it is associated with meals. He is not sure how long it lasts. In the hospital, the patient has been started on and continued on famotidine for his hiatal hernia. PAST MEDICAL HISTORY: Significant for hypercholesterolemia, gastroesophageal reflux disease, osteoarthritis, hiatal hernia, hypothyroidism, and anxiety. OUTPATIENT MEDICATIONS: 1. Ativan 1 mg as needed. 2. Atorvastatin 40 mg a day. 3. Buspirone 10 mg a day. 4. Cyclobenzaprine 10 mg a day. 5. Iron tablets. 6. Lasix 20 mg a day. 7. Levothyroxine 125 mcg a day. 8. Losartan 25 mg a day. 9. Melatonin ER 5 mg a day. 10. Metoprolol succinate 50 mg twice a day. 11. Proscar 5 mg a day. 12. Tamsulosin 0.4 mg a day. 13. Thioridazine 25 mg a day. ALLERGIES: Intolerant of Welchol, ibuprofen, morphine, Crestor. FAMILY HISTORY: Unable to obtain from the patient. SOCIAL HISTORY: He lives in assisted living. There is no evidence of tobacco or alcohol use. He does not get any regular exercise. REVIEW OF SYSTEMS: Difficult to obtain as the patient is unable to give accurate history of his review of systems. PHYSICAL EXAM: Height is 5 feet 10 inches, weight is 199 pounds. Temperature 97.4, heart rate is 87, blood pressure 141/91, respiratory rate is 20, oxygen saturation 93% on room air. Sclerae anicteric. Oropharynx is pink without erythema. Carotids are 2+ without bruits. JVD is normal. Thyroid is normal. Cardiac Exam: S1, S2 without any murmurs, rubs or gallops. Lungs are clear to auscultation bilaterally. There is no dullness to percussion. Abdomen is soft , nontender, nondistended with normoactive bowel sounds. Extremities show no edema. He has 2+ pulses throughout. The patient is awake and alert and oriented. He moves all 4 extremities equally. DIAGNOSTIC STUDIES/LAB DATA: CBC within normal limits. Chemistries within normal limits. Troponins were negative x3. Again, EKG shows sinus tachycardia, otherwise unremarkable. Please see description above of his stress test done here in the hospital. IMPRESSION: This is a 73-year-old gentleman with a history of tachycardia, who came to the hospital because of chest pain. The patient did have a chemical stress test, which does show a small-to- moderate area of ischemia to his inferolateral wall. Overall, I think the patient's area of potential ischemia does not put him at high risk. The patient does not have any other high risk features. His troponins are negative. EKG shows no EKG changes. PLAN/RECOMMENDATIONS: For now, my recommendation is to continue medical therapy. The patient is already on nystatin therapy and beta-blockers. It is my recommendation that the patient be started on aspirin 81 mg a day. The patient may also benefit from additional antianginal medications such as amlodipine 2.5 to 5 mg a day. The patient is stable for discharge. The patient will follow up with Dr. Moreno as an outpatient for ongoing cardiac care. This case was discussed with Mohinder Isbell M.D. [id number]/[facility] #: [id number] MADHAVI
[2019-07-16] MEDS: Levothyroxine TAB* 125 MCG TAB PO SCH (05:38)
[2019-07-16] MEDS: Heparin VIAL(*) 5000 UNITS/ML VIAL (FIVE THOUSAND) SUBCUT SCH (05:38)
[2019-07-16] MEDS: Famotidine TAB* 20 MG PO SCH (07:51)
[2019-07-16] MEDS: Atorvastatin* 40 MG TAB PO SCH (07:51)
[2019-07-16] MEDS: busPIRone TAB* 10 MG PO SCH (07:51)
[2019-07-16] MEDS: Pantoprazole TAB * 40 MG TAB PO SCH (07:52)
[2019-07-16] MEDS: Tamsulosin CAP* 0.4 MG PO SCH (07:52)
[2019-07-16] MEDS: LORazepam TAB(*) 0.5 MG PO SCH (07:52)
[2019-07-16] MEDS: Pentoxifylline CR TAB* 400 MG PO SCH (07:52)
[2019-07-16] MEDS: Sertraline* 100 MG TAB PO SCH (07:52)
[2019-07-16] MEDS: Gabapentin CAP(*) 300 MG PO SCH (07:52)
[2019-07-16] MEDS: Finasteride TAB* 5 MG PO SCH (07:52)
[2019-07-16] MEDS: Aspirin 81 mg CHEW TAB* 81 MG TAB.CHEW PO SCH (07:52)
[2019-07-16] MEDS: Metoprolol Tartrate TAB* 100 MG TAB PO SCH (07:52)
[2019-07-16] MEDS: Multivitamins/Minerals TAB PO SCH (07:53)
[2019-07-16] MEDS: Cyanocobalamin TAB* 500 MCG PO SCH (07:53)
[2019-07-16] MEDS: Ondansetron INJ* 2 MG/ML VIAL IV PRN (07:53)
[2019-07-16] MEDS: Acetaminophen TAB* 325 MG PO PRN (08:05)
[2019-07-16] MEDS: Cyclobenzaprine TAB* 10 MG PO PRN (08:05)
[2019-07-16] MEDS: Polyethylene Glycol 3350* 17 GM PACKET PO SCH (08:06)
[2019-07-16 08:10] VITALS: BP 141/87
[2019-07-16] MEDS ORDERED: amLODIPine TAB* 5 MG PO SCH (09:00)
--- NOTE | 2019-07-16 13:52 | DS ---
CC: Dr. Marilu Garcia, [facility] * DISCHARGE SUMMARY: DATE OF ADMISSION: 07/11/19 DATE OF DISCHARGE: 07/16/19 PRIMARY CARE PROVIDER: Olinda Campos [facility]. MY ATTENDING WHILE IN THE HOSPITAL: Dr. Marilu Garcia.* (DICTATED BY MANUEL ANNE) PRIMARY DISCHARGE DIAGNOSES: 1. Chest pain, unclear cause. 2. Coronary artery disease. 3. Abnormal stress test. 4. Large hiatal hernia. 5. Peripheral vascular disease, unclear severity. SECONDARY DISCHARGE DIAGNOSES: 1. Restless leg syndrome. 2. Anxiety. 3. Cognitive impairment. 3. Hypertension. 4. Gastroesophageal reflux disease. 5. Longstanding sinus tachycardia. 6. Dysarthria. 7. Hypothyroidism. 8. BPH. 9. Heart failure with preserved ejection fraction. 10. Known chronic L1 compression fracture. STUDIES DONE WHILE IN THE HOSPITAL: Chest x-ray from 07/11/19 read as low lung volumes, left lower lobe airspace opacification likely related to atelectasis, infiltrate can have a similar appearance, large hiatal hernia. Electrocardiogram shows normal sinus rhythm, no ST-segment elevation or depression, left ventricular hypertrophy, abnormal R-wave progression, no other hypertrophy or enlargement, intraventricular conduction delay, incomplete right bundle-branch block. Compared to previous exam, there are no significant changes. Chest thorax CTA read as no visible pulmonary embolism, stable left basilar atelectatic change versus pneumonitis, large hiatal hernia to the left of the midline containing the entire stomach and significant mesenteric fat. Transthoracic echocardiogram read as left ventricle wall thickness is mild to moderately increased, systolic function is normal, estimated ejection fraction is 55% to 60%. Abnormal relaxation consistent with grade 1 diastolic dysfunction, functionally benign heart valves, left atrium was mildly dilated, aortic root was mildly dilated. Ankle-brachial indices are not calculable due to non-compressible vessels with also elevated digital-brachial index. Waveforms are normal, which suggests the absence of significant peripheral arterial occlusive disease. Nuclear medicine scan from 07/15/19 read as moderate regional stress-induced ischemia in the apical basilar inferior lateral wall junction, hypokinesia most prominent in the lateral inferior [place], mild to moderate left ventricular dysfunction with estimated ejection fraction of 48% at stress. Intermediate risk based on nuclear component. Aorta with runoff CTA read as large hiatal hernia, trace bilateral pleural effusions with calcifications in the right posterior costophrenic sulcus, mild obstruction with bilateral renal calculi, colonic diverticulosis without diverticulitis, prominent compression of the L1 with retropulsion in the posterior superior aspect and moderate secondary spinal stenosis. Given contrast in the popliteal arteries right greater than left which is likely a reflection of this getting ahead of the bolus, there is poor opacification of calf vasculature which demonstrates prominent atherosclerosis with calcification. There is likely bilateral small vessel disease in the calves. Runoff of the popliteal arteries demonstrates no significant stenosis bilaterally. MEDICATIONS AT DISCHARGE: 1. Trental CR 400 mg p.o. t.i.d. 2. Synthroid 125 mcg p.o. daily. 3. Tamsulosin 0.4 mg p.o. b.i.d. 4. Buspirone 20 mg p.o. t.i.d. 5. MiraLAX 17 g p.o. daily. 6. Finasteride 5 mg p.o. daily. 7. Sennosides-docusate 2 tabs p.o. at bedtime. 8. Lorazepam 0.5 mg p.o. b.i.d. 9. Sertraline 100 mg p.o. daily. 10. Tylenol extra strength 1000 mg p.o. q.8 hours as needed. 11. Pantoprazole 40 mg p.o. b.i.d. 12. Zofran 8 mg p.o. q.8 hours as needed. 13. Multivitamin 1 tab p.o. daily. 14. Metoprolol tartrate 100 mg p.o. b.i.d. 15. Melatonin 5 mg p.o. at bedtime as needed. 16. Furosemide 40 mg p.o. q.48 hours as needed. 17. Neurontin 300 mg p.o. t.i.d. 18. Ferrous gluconate 325 mg p.o. q.72 hours. 19. Lipitor 40 mg p.o. daily. 20. Cyclobenzaprine 10 mg p.o. q.8 hours as needed. 21. Losartan 25 mg p.o. daily. 22. Ketoconazole 1 application topical on Sunday. 23. Vitamin B12 250 mcg p.o. daily. 24. Amlodipine 5 mg p.o. daily. 25. Aspirin 81 mg p.o. daily. 26. Famotidine 20 mg p.o. b.i.d. 27. Nitroglycerin tab 0.3 mg sublingually q.5 minutes as needed for worsening chest pain. New Medications at Discharge: 1. Amlodipine. 2. Aspirin. 3. Famotidine. 4. Nitroglycerin. Medications discontinued at discharge: 1. Famotidine 40 mg p.o. at bedtime. 2. Thioridazine 25 mg p.o. b.i.d. HOSPITAL COURSE: This is a brief summary of the patient's presentation. For more details, please see the history and physical from Shantal Pereira NP on . In brief, the patient is a 73-year-old male with past medical history significant for the above, who presents to the emergency department with several weeks of chest pain, shortness of breath, dizziness, and that was worse today. 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 The patient had negative troponins, a slightly elevated D-dimer, and had a CT PE which was read as above showing no PE. The patient had chronic atelectasis and hiatal hernia as above. The patient was tachycardic, but this improved without specific intervention. The patient was admitted to the hospital, scheduled for a stress test. The patient continued to have on and off chest pain and epigastric pain. The patient's EKG was nonischemic as above. The patient was initially on oxygen, but this was able to be weaned. The patient had an echo as above also showing no significant wall motion abnormalities, but stigmata of possible heart failure with preserved ejection fraction. The patient had his pentoxifylline held on 07/14/19. The patient had an extremity arterial study showing calcification with normal waveforms as above, and on 07/15/19, had nuclear medicine scan showing a small area of reversible ischemia as above. The patient was seen in consultation by Dr. Ehsan Cruz who recommended medical therapy. The patient on the day of discharge still had intermittent epigastric and chest pain as well as restlessness and pain in his legs, neither of which are worsened from his baseline. The patient was started on amlodipine and aspirin for his chest pain and abnormal stress test, which he tolerated well. The patient was stable and amenable for discharge on 07/16/19. PHYSICAL EXAM ON DATE OF DISCHARGE: General: The patient is a 73-year-old male who appears the stated age, sitting in the bed, in no acute distress. Vital Signs: At the time of evaluation, temperature 98.4, pulse rate 89, respiratory rate 17, oxygen saturation 94% on room air, and blood pressure 131/ 87. HEENT: Head normocephalic, atraumatic. Sclerae anicteric. No conjunctival injection. Nasal mucosa moist. Oral mucosa moist. No oropharyngeal erythema, discharge, or exudate. Neck: Supple and nontender. No lymphadenopathy. No carotid bruits auscultated. No JVD. Cardiac: Regular rate and rhythm. No clicks, murmurs, gallops, or rubs. Pulses 2+ in the dorsalis pedis, posterior tibialis, and radial areas. Respiratory: Clear to auscultation bilaterally. No wheezes, rales, or rhonchi. Good air exchange bilaterally. The patient takes abnormally small frequent breaths. Abdomen: Soft, nontender, and nondistended. Bowel sounds present and normoactive in all 4 quadrants. No hepatosplenomegaly. No abdominal bruits auscultated. No hepatojugular reflux. Genitourinary: No suprapubic or CVA tenderness. Skin: Clean, dry, and intact. No rashes. Neuro: Cranial nerves II through XII intact except for possible slight right-sided facial droop. No other focal deficits. Alert and oriented x3. Psychiatric: Anxious, but otherwise pleasant and cooperative. DISCHARGE PLAN BY PROBLEM: 1. Chest pain. The etiology of chest pain is unclear. The patient is not a reliable historian and is not able to give good historical features for his pain nor localizes very well; however, this could be related to angina and the patient was started on increased antianginal therapy with the addition of amlodipine and aspirin. The patient will be continued on his metoprolol and nitroglycerin as needed. The patient will follow up outpatient with Dr. Moreno to optimize his cardiac care. The patient is already on a statin and this will not be changed. The patient's chest/epigastric pain may also very well be due to his large hiatal hernia which has previously not been noted to be operable. The patient is on a b.i.d. PPI as well as a b.i.d. H2 manuel. The addition of sucralfate, if the patient continues to have symptoms from his hiatal hernia, may be considered. 2. Coronary artery disease. The patient had an abnormal nuclear stress test showing a small area of reversible ischemia. The patient was evaluated by Dr. Cruz who recommended medical therapy which will be continued as above. 3. Leg pain. The patient has leg pain which is likely multifactorial, but could be related to peripheral vascular disease, though it is unlikely even with the findings of small vessel ischemia in his calves on the above CTA with runoff. Given his good pulses and good perfusion, it is unlikely he has rest level claudication symptoms. This may be very much related to his restless leg syndrome and his thioridazine has been held at this time. The patient should follow up outpatient with his neurologist. The patient's pentoxifylline, aspirin, and statin will be continued and amlodipine may be able to help with his symptoms and has been started. Gabapentin will also be continued. 4. Anxiety. The patient has a large component of anxiety. We will continue the patient's BuSpar, lorazepam, sertraline. 5. Hypertension. The patient is currently normotensive. Continue his amlodipine, losartan, metoprolol. 6. BPH, history of urinary retention. Continue the patient's Flomax and finasteride. 7. Compression fracture of the L1 vertebra. This appears to be chronic based on previous documentation. This is unlikely the cause of patient's symptoms, though it may be contributing to his leg pain. It should be followed up outpatient, possibly with a neurosurgeon. 8. Gastroesophageal reflux disease. This is likely related to hiatal hernia. Continue the patient's Protonix and famotidine. 9. Disposition: [facility]. 10. Condition: Stable. TIME SPENT: Approximately 60 minutes spent on the discharge of this patient; 30 of which was spent [id number] with the patient obtaining history and physical and discussing treatment plan. MANUEL ANNE [id number]/[facility] #: [id number] MTDCarin
== END 2019-07-16 13:05 | DRG 303 ==
LOC: ED 12:09 → MEDTELE 14:39 → ED 15:54 → OBSVTOIN 07-13 11:01
PROVIDERS: ADMIT Internal Medicine; ATTEND Hospitalist
PROC: 4A02XM4 Measurement of Cardiac Total Activity, External Approach (ICD-10-PCS; principal; 2019-07-15)
DX: I25.119 Atherosclerotic heart disease of native coronary artery with unspecified angina pectoris (principal); I50.22 Chronic systolic (congestive) heart failure; J98.11 Atelectasis; M48.56XA Collapsed vertebra, not elsewhere classified, lumbar region, initial encounter for fracture; K44.9 Diaphragmatic hernia without obstruction or gangrene; E78.5 Hyperlipidemia, unspecified; K21.9 Gastro-esophageal reflux disease without esophagitis; I73.9 Peripheral vascular disease, unspecified; M19.90 Unspecified osteoarthritis, unspecified site; R62.50 Unspecified lack of expected normal physiological development in childhood; E03.9 Hypothyroidism, unspecified; G25.81 Restless legs syndrome; I11.0 Hypertensive heart disease with heart failure; R00.0 Tachycardia, unspecified; G31.84 Mild cognitive impairment of uncertain or unknown etiology; N40.1 Benign prostatic hyperplasia with lower urinary tract symptoms; R33.8 Other retention of urine; E78.00 Pure hypercholesterolemia, unspecified; F32.9 Major depressive disorder, single episode, unspecified; Z66 Do not resuscitate; R47.1 Dysarthria and anarthria; I45.10 Unspecified right bundle-branch block; F41.9 Anxiety disorder, unspecified; Z86.73 Personal history of transient ischemic attack (TIA), and cerebral infarction without residual deficits; Z88.5 Allergy status to narcotic agent; Z88.8 Allergy status to other drugs, medicaments and biological substances; Z88.6 Allergy status to analgesic agent; Z86.718 Personal history of other venous thrombosis and embolism; Z85.828 Personal history of other malignant neoplasm of skin; Z87.891 Personal history of nicotine dependence; Z79.82 Long term (current) use of aspirin; Z79.899 Other long term (current) drug therapy; Z79.890 Hormone replacement therapy
CPT/HCPCS: 36415; 71046; 71275; 75635; 78452; 80048; 80053; 83036; 83880; 84443; 84484; 85025; 85379; 86140; 87641; 93005; 93306; 93922; 99284; A9270-GY; A9502; C8929; G0378; J1644; J2405; J2785; Q9967

== ENCOUNTER 2019-07-19 13:20 | Emergency (ER) | payer MEDICARE, MEDICAID ==
--- NOTE | 2019-07-19 13:30 | ED ---
HPI Chest Pain - HPI Summary HPI Summary: Pt is a 73 y/o M presenting to the ED brought in by EMS for chest pain initially onset hours ago. He reports chest pain diffusely across his chest that goes into his heart, painful respirations, nausea, weakness, and leg pain. He notes he has a droop on the L side of his mouth because he has no teeth. His doctor advised him to come into the ED if his symptoms persist. He is aware of his hiatal hernia as well as the blockages in his heart. - History of Current Complaint Time Seen by Provider: 07/19/19 13:21 Hx Obtained From: Patient, EMS Onset/Duration: Started Hours Ago, Still Present Timing: Constant, Lasting Hours Initial Severity: Moderate Current Severity: Moderate Chest Pain Location: Diffuse Chest Pain Radiates: No Aggravating Factor(s): Nothing Alleviating Factor(s): Nothing Associated Signs and Symptoms: Positive: Chest Pain, Weakness, Shortness of Breath - painful respirations\, Nausea - Additional Pertinent History Primary Care Physician: JOLIE - Allergy/Home Medications Allergies/Adverse Reactions: Allergies Allergy/AdvReac Type Severity Reaction Status Date / Time codeine AdvReac headache, Verified 07/19/19 13:41 nausea colesevelam [From WelChol] AdvReac Muscle Ache Verified 07/19/19 13:41 meclizine AdvReac Nausea Verified 07/19/19 13:41 oxycodone AdvReac Nausea Verified 07/19/19 13:41 Home Medications: Home Medications Isosorbide Dinitrate [Isordil Titradose] 30 mg PO DAILY 07/19/19 [History Confirmed 07/19/19] PMH/Surg Hx/FS Hx/Imm Hx Previously Healthy: Yes Endocrine/Hematology History: Reports: Hx Anticoagulant Therapy, Hx Thyroid Disease Denies: Hx Diabetes Cardiovascular History: Reports: Hx Angina, 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, Hx Hypercholesterolemia, Hx Hypertension, Hx Peripheral Vascular Disease, Other Cardiovascular Problems/Disorders - tachycardia Denies: Hx Angioplasty, Hx Congestive Heart Failure, Hx Embolism, Hx Pacemaker/ICD Respiratory History: Reports: Other Respiratory Problems/Disorders - chronic cough Denies: Hx Asthma, Hx Chronic Obstructive Pulmonary Disease (COPD), Hx Lung Cancer, Hx Pleural Effusion, Hx Pulmonary Edema, Hx Pulmonary Embolism, Hx Seasonal Allergies, Hx Sleep Apnea GI History: Reports: Hx Gastroesophageal Reflux Disease, Hx Hiatal Hernia, Other GI Disorders Denies: Hx Irritable Bowel History: Reports: Hx Benign Prostatic Hyperplasia, Other Problems/ Disorders - BR[place]ON Denies: Hx Dialysis, Hx Kidney Infection, Hx Kidney Stones, Hx Renal Disease Musculoskeletal History: Reports: Hx Arthritis, Hx Back Problems Sensory History: Reports: Hx Eye Injury Denies: Hx Cataracts, Hx Contacts or Glasses, Hx Glaucoma, Hx Legally Blind, Hx Deafness, Hx Hearing Aid Opthamlomology History: Reports: Hx Eye Injury Denies: Hx Cataracts, Hx Contacts or Glasses, Hx Glaucoma, Hx Legally Blind Neurological History: Reports: Hx Developmental Delay, Hx Headaches, Hx Transient Ischemic Attacks (TIA), Other Neuro Impairments/Disorders - speech impediment Denies: Hx Migraine, Hx Seizures, Hx Spinal Cord Injury Psychiatric History: Reports: Hx Anxiety, Other Psychiatric Issues/Disorders Denies: Hx Depression, Hx Panic Disorder - Cancer History Cancer Type, Location and Year: Skin cancer 1999 - Surgical History Surgery Procedure, Year, and Place: None - Immunization History Date of Tetanus Vaccine: up to date Date of Influenza Vaccine: utd Infectious Disease History: Denies: Hx of Known/Suspected MRSA - Family History Known Family History: Positive: Cardiac Disease, Hypertension Negative: Diabetes - Social History Alcohol Use: None Hx Substance Use: No Substance Use Type: Reports: None Hx Tobacco Use: Yes Smoking Status (MU): Former Smoker Type: Cigarettes Have You Smoked in the Last Year: No Review of Systems Positive: Chest Pain Positive: Other - painful respirations Positive: Nausea Positive: Myalgia - legs Positive: Weakness All Other Systems Reviewed And Are Negative: Yes Physical Exam - Summary Physical Exam Summary: Constitutional: Well-developed, Well-nourished, Alert. (-) Distressed Skin: Warm, Dry HENT: Normocephalic; Atraumatic Eyes: Conjunctiva normal Neck: Musculoskeletal ROM normal neck. (-) JVD, (-) Stridor, (-) Tracheal deviation Cardio: Rhythm regular, rate normal, Heart sounds normal; Intact distal pulses; The pedal pulses are 2+ and symmetric. Radial pulses are 2+ and symmetric. (-) Murmur Pulmonary/Chest wall: Effort normal. (-) Respiratory distress, (-) Wheezes, (-) Rales Abd: Soft, mild generalized tenderness, ecchymosis noted from Lovonox shots, (- ) Distension, (-) Guarding, (-) Rebound Musculoskeletal: (-) Edema Lymph: (-) Cervical adenopathy Neuro: Alert, Oriented x3. No focal deficits. Psych: Mood and affect Normal Triage Information Reviewed: Yes Vital Signs Reviewed: Yes Procedures - Sedation Patient Received Moderate/Deep Sedation with Procedure: No Diagnostics - Laboratory Result Diagrams: 07/19/19 13:42 07/19/19 13:42 Lab Statement: Any lab studies that have been ordered have been reviewed, and results considered in the medical decision making process. - Radiology CXR Radiology Interpretation Completed By: Radiologist Summary of Radiographic Findings: Chronic findings without evidence for acute intrathoracic disease. ED physician has reviewed this report. - EKG 1342 Cardiac Rate: NL - 97bpm EKG Rhythm: Sinus Rhythm ST Segment: Normal Ectopy: None Summary of EKG Findings: EKG at 1342 shows NSR at 97bpm with no STEMI. No ischemic changes. Dr. Almonte has reviewed and interpreted this EKG. Chest Pain Course/Dx - Course Course Of Treatment: Pt is a 73 y/o M presenting to the ED brought in by EMS for chest pain initially onset hours ago. He reports chest pain diffusely across his chest that goes into his heart, painful respirations, nausea, weakness, and leg pain. Pt has mild generalized abd tenderness. No focal neurological deficits. CXR shows: Chronic findings without evidence for acute intrathoracic disease. EKG at 1342 shows NSR at 97bpm with no STEMI. No ischemic changes. Dr. Almonte has reviewed and interpreted this EKG. Pt is stable, improved, and agreeable with plan of discharge. He will be d/c'ed with dx of chest pain and hiatal hernia. Instructed to f/u with PCP within 3 days. No evidence of ACS. Question whether large hiatal hernia noted on prior CTA is the source of patient's symptoms. Patient comfortable with discharged. Past PCP for follow-up. - Diagnoses Provider Diagnoses: Chest pain, Hiatal hernia Discharge ED - Sign-Out/Discharge Documenting (check all that apply): Patient Departure - Discharge Plan Condition: Stable Disposition: HOME Patient Education Materials: Chest Pain (ED), Hiatal Hernia (ED) Referrals: Marilu Garcia DO [Primary Care Provider] - Additional Instructions: Please follow up with your primary care provider on 07/21/18. Return to the emergency department with any new or worsening symptoms. - Billing Disposition and Condition Condition: STABLE Disposition: Home - Attestation Statements Document Initiated by Mary Beth: Yes Documenting Scribe: Beata De Souza Provider For Whom Mary Beth is Documenting (Include Credential): Eulogio Almonte DO. Scribe Attestation: IBeata, jazmyned for Eulogio Almonte DO. on 07/19/19 at 1724. Scribe Documentation Reviewed: Yes Provider Attestation: The documentation as recorded by the oksanaibe, Beata De Souza accurately reflects the service I personally performed and the decisions made by , Eulogio Almonte DO. Status of Scribe Document: Viewed
[2019-07-19] MEDS ORDERED: NS 0.9% 1000 ML** 1,000 ML IV ONE (13:47)
[2019-07-19] MEDS ORDERED: Ondansetron INJ* 2 MG/ML VIAL IV ONE ×2 (13:47→17:09)
[2019-07-19 13:48] LABS: Hematocrit 40 % (42-52); Hemoglobin 13.9 g/dL (14.0-18.0); Mean Corpuscular HGB Conc 35 g/dL (31-36); Mean Corpuscular Hemoglobin 33 pg (27-31); Mean Corpuscular Volume 95 fL (80-94); Platelet Count 224 10^3/uL (150-450); Red Blood Count 4.23 10^6 /uL (4.18-5.48); Red Cell Distribution Width 15 % (10-15); White Blood Count 12.6 10^3/uL (3.5-10.8)
[2019-07-19 14:14] LABS: ABS Basophils 0.1 10^3/ul (0-0.2); ABS Eosinophils 0.1 10^3/ul (0-0.6); ABS Lymphocytes 2.2 10^3/ul (1.0-4.8); ABS Monocytes 1.1 10^3/ul (0-0.8); ABS Neutrophils 9.2 10^3/ul (1.5-7.7); Albumin 3.8 g/dL (3.2-5.2); Albumin/Globulin Ratio 1.5 (1-3); BUN/Creatinine Ratio 14.4 (8-20); Calcium 9.7 mg/dL (8.6-10.3); EGFR African American 100.7 (>60); EGFR Non-African American 83.2 (>60); Eosinophil % 0.8 %; Globulin 2.5 g/dL (2-4); Lymphocyte % 17.6 %; Potassium 4.9 mmol/L (3.5-5.0); Total Bilirubin 0.5 mg/dL (0.2-1.0); Total Protein 6.3 g/dL (6.4-8.9)
[2019-07-19 14:15] LABS: Troponin I 0.01 ng/mL (<0.03)
--- OUTSIDE RECORDS SUMMARY | 2019-07-19 14:50 | XMS REPORT | Continuity of Care Document ---
:1945 External Reference #:[id number] Author Name Candida Ayoub O.D. Address [address] [place] [id number] Care Team Providers Name Role Phone Liam Patel M.D. - Internal Care Team Information Educational Recruiter [phone] Medicine Problems Active Problems Provider Date Asthma Onset: Gastroesophageal reflux disease Onset: Hypothyroidism Onset: Essential hypertension Onset: Arthritis Onset: Hypercholesterolemia Onset: Retinal hemorrhage Candida Ayoub O.D. Onset: 07/27/2015 Nuclear senile cataract Candida Ayoub O.D. Onset: 07/27/2015 Regular astigmatism Candida Ayoub O.D. Onset: 07/27/2015 Myopia Candida Ayoub O.D. Onset: 07/27/2015 Presbyopia Candida Ayoub O.D. Onset: 07/27/2015 Hypertropia Candida Ayoub O.D. Onset: 12/15/2016 Vitreous degeneration Candida Ayoub O.D. Onset: 01/16/2017 Esophoria Candida Ayoub O.D. Onset: 01/16/2017 Diplopia Candida Ayoub O.D. Onset: 06/12/2017 Hypermetropia Candida Ayoub O.D. Onset: 07/18/2019 Social History Type Date Description Comments Sex Unknown ETOH Use Denies alcohol use Tobacco Use Start: Unknown End: Unknown Patient is a former smoker Recreational Drug Use Denies Drug Use Smoking Status Reviewed: 07/18/19 Patient is a former smoker Allergies, Adverse [...] HCL Unknown 50mg Tablets Levothyroxine Sodium Jose, Dasha D.O. 125mcg Tablets Tamsulosin HCL Jose, Dasha D.O. 0.4mg Capsules Finasteride Jose, Dasha D.O. 5mg Tablets Pantoprazole Sodium Jose, Dasha D.O. 40mg Tablets DR Famotidine Jose, Dasha D.O. 40mg Tablets Ondansetron HCL Unknown 4mg Tablets Metoprolol Tartrate Unknown 100mg Tablets Losartan Potassium SennerRoxy DO 25mg Tablets Furosemide Unknown 20mg Tablets Ketoconazole Jose, Dasha D.O. 2% Shampoo Gabapentin Jose, Dasha D.O. 300mg Capsules Cyclobenzaprine HCL Jose, Dasha D.O. 5mg Tablets Buspirone HCL Jose, Dasha D.O. 10mg Tablets Atorvastatin Calcium Unknown 40mg Tablets Lorazepam Jose, Dasha D.O. 0.5mg Tablets Immunizations Description No Information Available Vital Signs Description No Information Available Results Description No Information Available Procedures Date Code Description Status 07/03/2019 14677 Est Patient Comprehensive Exam Completed Medical Devices Description No Information Available Encounters Description No Information Available Assessments Date Code Description Provider 07/18/2019 H52.03 Hypermetropia, bilateral Candida Ayoub O.D. 07/18/2019 H52.4 Presbyopia Candida Ayoub O.D. 07/03/2019 H25.13 Age-related nuclear cataract, bilateral Tapan Regalado M.D. Plan of Treatment 07/18/2019 - Candida Ayoub O.D.H52.03 Hypermetropia, bilateralComments: Smoking can increase the risk of developing or worsening any eye related disease , as well as affect your overall health. If you are a smoker, we strongly recommend that you quit.If you are not a smoker, we strongly recommend that you do not start. You have Hyperopia, or far sightedness, I have givenyou a prescription for glasses.H52.4 PresbyopiaComments:You have presbyopia. This is when the lens in your eye loses the ability to change focus, and happens as we age. A pair of reading glasses will help you see up close. Functional Status Description No Information Available Mental Status Description No Information Available Referrals Description No Information Available
[2019-07-19 18:40] VITALS: BP 112/75
== END 2019-07-19 19:34 | disposition home or self-care (01) ==
LOC: ED 13:20
DX: R07.9 Chest pain, unspecified (principal); K44.9 Diaphragmatic hernia without obstruction or gangrene; E07.9 Disorder of thyroid, unspecified; E78.00 Pure hypercholesterolemia, unspecified; I73.9 Peripheral vascular disease, unspecified; I10 Essential (primary) hypertension; K21.9 Gastro-esophageal reflux disease without esophagitis; R62.50 Unspecified lack of expected normal physiological development in childhood; F41.9 Anxiety disorder, unspecified; Z86.73 Personal history of transient ischemic attack (TIA), and cerebral infarction without residual deficits; Z86.718 Personal history of other venous thrombosis and embolism; Z85.828 Personal history of other malignant neoplasm of skin; Z87.891 Personal history of nicotine dependence; Z79.899 Other long term (current) drug therapy; Z88.5 Allergy status to narcotic agent; Z88.8 Allergy status to other drugs, medicaments and biological substances
CPT/HCPCS: 36415; 71045; 80053; 83605; 84484; 85025; 85060; 93005; 96361; 96374; 96376; 99284; J2405

== ENCOUNTER 2019-12-23 08:34 | Inpatient (IN) ==
[2019-12-23] MEDS ORDERED: Ondansetron 4 mg VIAL 2 MG/ML 2 ml VIAL IV ONE ×2 (08:59→11:40)
[2019-12-23] MEDS ORDERED: NS 0.9% 1000 ml BAG 1,000 ML IV ONE (08:59)
[2019-12-23 09:19] LABS: Hematocrit 45 % (42-52); Hemoglobin 15.6 g/dL (14.0-18.0); Mean Corpuscular HGB Conc 35 g/dL (31-36); Mean Corpuscular Hemoglobin 32 pg (27-31); Mean Corpuscular Volume 92 fL (80-94); Mean Platelet Volume 6.6 fL (7.4-10.4); Platelet Count 263 10^3/uL (150-450); Red Blood Count 4.82 10^6 /uL (4.18-5.48); Red Cell Distribution Width 13 % (10-15); White Blood Count 12.4 10^3/uL (3.5-10.8)
[2019-12-23 09:44] LABS: Albumin 4.6 g/dL (3.2-5.2); Albumin/Globulin Ratio 1.6 (1-3); BUN/Creatinine Ratio 20.2 (8-20); C Reactive Protein 10.01 mg/L (<8.01); Calcium 9.8 mg/dL (8.6-10.3); EGFR African American 72.7 (>60); EGFR Non-African American 60.1 (>60); Globulin 2.8 g/dL (2-4); Magnesium 1.8 mg/dL (1.9-2.7); Potassium 2.8 mmol/L (3.5-5.0); Total Bilirubin 0.7 mg/dL (0.2-1.0); Total Protein 7.4 g/dL (6.4-8.9)
[2019-12-23 09:46] LABS: Troponin I 0.03 ng/mL (<0.03)
[2019-12-23] MEDS ORDERED: Potassium Chlor 20 meq TAB.ER PO ONE (09:53)
[2019-12-23] MEDS ORDERED: KCL 10 MEQ/50 ML IVPREMIX 10 MEQ/50 ML BAG IV ONE (09:56)
[2019-12-23] MEDS ORDERED: Magnesium Sulfate 2 gm BAG 2 GM/50 ML BAG IVPB ONE (11:23)
[2019-12-23] MEDS ORDERED: NS 0.9% 1000 ml BAG 400 ML IV SCH (11:30)
[2019-12-23] MEDS ORDERED: Lorazepam PYXIS KEY PRN (12:18)
[2019-12-23] MEDS ORDERED: Ondansetron 4 mg VIAL 2 MG/ML 2 ml VIAL IV PRN (12:19)
[2019-12-23 12:48] LABS: Troponin I 0.04 ng/mL (<0.03)
[2019-12-23] MEDS: Pantoprazole VIAL 40 MG VIAL IV SCH (13:51)
[2019-12-23] MEDS: Pentoxifylline CR 400 mg TAB 400 MG PO SCH ×2 (13:59→22:13)
[2019-12-23 15:02] LABS: Troponin I 0.04 ng/mL (<0.03)
[2019-12-23] MEDS: Prochlorperazine 5 mg/ml 2 ml VIAL (10 mg) IV PRN ×2 (16:46→22:12)
[2019-12-23 18:31] LABS: Troponin I 0.04 ng/mL (<0.03)
[2019-12-23] MEDS ORDERED: LORazepam 2 mg VIAL 1 ml IV PUSH SCH (21:00)
[2019-12-23] MEDS ORDERED: Metoprolol Tartrate 5 mg VIAL 5 ml VIAL (1 mg/ml) IV SCH (21:00)
[2019-12-23] MEDS: LORazepam 0.5 mg TAB (*) PO SCH (21:11)
[2019-12-23] MEDS: Heparin 5000 UNITS/ML VIAL(*) 1 ml vial SUBCUT SCH (22:12)
[2019-12-23 22:57] LABS: Urine Appearance Clear; Urine Bilirubin Negative (Negative); Urine Blood Negative (Negative); Urine Color Yellow; Urine Glucose Negative (Negative); Urine Ketones 1+ (Negative); Urine Nitrite Negative (Negative); Urine Protein Negative (Negative); Urine Urobilinogen Negative (Negative)
[2019-12-23] MEDS: NS 0.9% 1000 ml BAG 1,000 ML IV SCH (23:05)
[2019-12-24] MEDS ORDERED: Ondansetron 4 mg VIAL 2 MG/ML 2 ml VIAL IV ONE (02:47)
[2019-12-24] MEDS: Prochlorperazine 5 mg/ml 2 ml VIAL (10 mg) IV PRN (04:12)
[2019-12-24] MEDS: Heparin 5000 UNITS/ML VIAL(*) 1 ml vial SUBCUT SCH (05:10)
[2019-12-24] MEDS: Levothyroxine 100 MCG/5 ML VIAL IV SCH (05:23)
[2019-12-24] MEDS ORDERED: Levothyroxine 100 MCG/5 ML VIAL IV SCH (06:00)
[2019-12-24 06:24] LABS: ABS Eosinophils 0.1 10^3/ul (0-0.6); ABS Lymphocytes 1.6 10^3/ul (1.0-4.8); ABS Monocytes 0.7 10^3/ul (0-0.8); Eosinophil % 1.4 %; Hematocrit 39 % (42-52); Hemoglobin 13.7 g/dL (14.0-18.0); Lymphocyte % 16.7 %; Mean Corpuscular HGB Conc 35 g/dL (31-36); Mean Corpuscular Hemoglobin 32 pg (27-31); Mean Corpuscular Volume 92 fL (80-94); Mean Platelet Volume 6.6 fL (7.4-10.4); Platelet Count 224 10^3/uL (150-450); Red Blood Count 4.24 10^6 /uL (4.18-5.48); Red Cell Distribution Width 13 % (10-15); White Blood Count 9.8 10^3/uL (3.5-10.8)
[2019-12-24 06:39] LABS: BUN/Creatinine Ratio 20.2 (8-20); Calcium 8.5 mg/dL (8.6-10.3); EGFR African American 108.7 (>60); EGFR Non-African American 89.8 (>60); Magnesium 2.1 mg/dL (1.9-2.7)
[2019-12-24 06:42] LABS: Potassium 2.4 mmol/L (3.5-5.0)
[2019-12-24] MEDS: KCL 20 MEQ/100 ML IVPREMIX 20 MEQ/100 ML BAG IV SCH ×2 (07:43→10:37)
[2019-12-24] MEDS ORDERED: Morphine 2 MG/ML SYRINGE IV PRN (08:08)
[2019-12-24] MEDS: Pentoxifylline CR 400 mg TAB 400 MG PO SCH ×2 (08:20→13:59)
[2019-12-24] MEDS: LORazepam 0.5 mg TAB (*) PO SCH (08:22)
[2019-12-24] MEDS ORDERED: ISOSORBIDE DINITRATE 30 MG PO SCH (09:00)
[2019-12-24] MEDS: NS 0.9% 1000 ml BAG 1,000 ML IV SCH (10:37)
[2019-12-24 12:10] LABS: Calcium 8.7 mg/dL (8.6-10.3); EGFR African American 113.3 (>60); EGFR Non-African American 93.7 (>60); Potassium 3.3 mmol/L (3.5-5.0)
[2019-12-24] MEDS: Pantoprazole VIAL 40 MG VIAL IV SCH (13:47)
[2019-12-24] MEDS ORDERED: ceFAZolin 2 GM PREMIX in ORs 2 GM/50 ML BAG ONE (15:15)
[2019-12-24] MEDS ORDERED: fentaNYL 100 mcg/2 ml 50 MCG/ML VIAL ONE ×2 (15:50→23:06)
[2019-12-24] MEDS ORDERED: Naloxone 0.4 mg VIAL 0.4 mg/ml 1 ml VIAL IV PRN ×2 (15:51→21:48)
[2019-12-24] MEDS ORDERED: fentaNYL 100 mcg/2 ml 50 MCG/ML VIAL IV PRN ×2 (15:51→21:48)
[2019-12-24] MEDS ORDERED: Phenylephrine IV 10 MG/ML 1 ml VIAL ONE ×2 (17:06→21:04)
[2019-12-24] MEDS ORDERED: EPHEDrine (Pressors) 50 MG/ML VIAL ONE (17:06)
[2019-12-24] MEDS ORDERED: Propofol 10 MG/ML 20 ML BTL ONE (17:06)
[2019-12-24] MEDS ORDERED: Phenylephrine 40 mcg/mL 10mL (400mcg) SYRINGE ONE (17:06)
[2019-12-24] MEDS ORDERED: Succinylcholine 200 mg VIAL 20 mg/ml 10 ml VIAL (200 mg) ONE (17:06)
[2019-12-24] MEDS ORDERED: Lidocaine 2% PF 5 ML VIAL ONE (17:06)
[2019-12-24] MEDS ORDERED: Ondansetron 4 mg VIAL 2 MG/ML 2 ml VIAL ONE (17:06)
[2019-12-24] MEDS ORDERED: Ondansetron 4 mg VIAL 2 MG/ML 2 ml VIAL IV PRN (21:48)
[2019-12-24] MEDS ORDERED: DiMENhydriNATE IV 50 mg/ml 1 ml VIAL IV PUSH PRN (21:48)
[2019-12-24] MEDS ORDERED: HYDROmorphone 1 MG/1 ML SYRINGE IV PRN (21:48)
[2019-12-25] MEDS: NS 0.9% 1000 ml BAG 1,000 ML IV SCH ×2 (00:01→10:49)
[2019-12-25] MEDS: LORazepam 0.5 mg TAB (*) PO SCH ×2 (00:03→09:59)
[2019-12-25] MEDS: Pentoxifylline CR 400 mg TAB 400 MG PO SCH ×4 (00:04→19:42)
[2019-12-25] MEDS: Prochlorperazine 5 mg/ml 2 ml VIAL (10 mg) IV PRN ×3 (02:26→23:00)
[2019-12-25] MEDS: HYDROmorphone 0.5 MG/0.5 ML SYRINGE IV SLOW PU PRN ×4 (02:26→19:42)
[2019-12-25 04:50] LABS: ABS Eosinophils 0.1 10^3/ul (0-0.6); ABS Lymphocytes 2.3 10^3/ul (1.0-4.8); Eosinophil % 0.4 %; Hematocrit 39 % (42-52); Hemoglobin 13.4 g/dL (14.0-18.0); Lymphocyte % 18.4 %; Mean Corpuscular HGB Conc 34 g/dL (31-36); Mean Corpuscular Hemoglobin 32 pg (27-31); Mean Corpuscular Volume 93 fL (80-94); Mean Platelet Volume 6.5 fL (7.4-10.4); Nucleated Red Blood Cells % 0.1; Platelet Count 193 10^3/uL (150-450); Red Blood Count 4.18 10^6 /uL (4.18-5.48); Red Cell Distribution Width 13 % (10-15); White Blood Count 12.7 10^3/uL (3.5-10.8)
[2019-12-25 04:55] LABS: INR 1.15 (0.82-1.09)
[2019-12-25 05:02] LABS: BUN/Creatinine Ratio 20.3 (8-20); Calcium 8.5 mg/dL (8.6-10.3); EGFR African American 116.7 (>60); EGFR Non-African American 96.4 (>60); Magnesium 1.8 mg/dL (1.9-2.7); Phosphorus 2.2 mg/dL (2.5-5.0)
[2019-12-25 05:10] LABS: Potassium 2.5 mmol/L (3.5-5.0)
[2019-12-25] MEDS ORDERED: Magnesium Sulfate IV 1GM/100ML 1 GM/100 ML BAG IV ONE (05:11)
[2019-12-25] MEDS: KCL 20 MEQ/100 ML IVPREMIX 20 MEQ/100 ML BAG IV SCH ×4 (05:25→18:08)
[2019-12-25] MEDS: Levothyroxine 100 MCG/5 ML VIAL IV SCH (05:25)
[2019-12-25] MEDS: Metoprolol Tartrate 5 mg VIAL 5 ml VIAL (1 mg/ml) IV SCH ×3 (12:14→22:46)
[2019-12-25] MEDS: LORazepam 2 mg VIAL 1 ml IV PUSH SCH ×2 (12:15→19:41)
[2019-12-25] MEDS: D5W 1/2 NS KCl 20 meq 1000 ml 1,000 ML IV SCH (13:18)
[2019-12-25 13:30] LABS: BUN/Creatinine Ratio 16.3 (8-20); Calcium 8.6 mg/dL (8.6-10.3); Potassium 3.1 mmol/L (3.5-5.0)
[2019-12-25] MEDS: Pantoprazole VIAL 40 MG VIAL IV SCH (14:22)
[2019-12-26] MEDS: Metoprolol Tartrate 5 mg VIAL 5 ml VIAL (1 mg/ml) IV SCH (04:06)
[2019-12-26] MEDS: Prochlorperazine 5 mg/ml 2 ml VIAL (10 mg) IV PRN ×3 (04:08→18:10)
[2019-12-26 05:19] LABS: ABS Eosinophils 0.1 10^3/ul (0-0.6); ABS Monocytes 0.8 10^3/ul (0-0.8); Eosinophil % 1.2 %; Hematocrit 38 % (42-52); Lymphocyte % 10.7 %; Mean Corpuscular HGB Conc 35 g/dL (31-36); Mean Corpuscular Hemoglobin 32 pg (27-31); Mean Corpuscular Volume 93 fL (80-94); Mean Platelet Volume 6.5 fL (7.4-10.4); Platelet Count 171 10^3/uL (150-450); Red Blood Count 4.04 10^6 /uL (4.18-5.48); Red Cell Distribution Width 14 % (10-15); White Blood Count 9.1 10^3/uL (3.5-10.8)
[2019-12-26 05:42] LABS: BUN/Creatinine Ratio 13.6 (8-20); Calcium 8.4 mg/dL (8.6-10.3); EGFR African American 143.6 (>60); EGFR Non-African American 118.6 (>60); Magnesium 1.8 mg/dL (1.9-2.7)
[2019-12-26] MEDS: Levothyroxine 100 MCG/5 ML VIAL IV SCH (06:06)
[2019-12-26] MEDS: D5W 1/2 NS KCl 20 meq 1000 ml 1,000 ML IV SCH ×2 (07:26→22:24)
[2019-12-26] MEDS: Pentoxifylline CR 400 mg TAB 400 MG PO SCH ×3 (09:00→21:02)
[2019-12-26] MEDS: LORazepam 2 mg VIAL 1 ml IV PUSH SCH (09:00)
[2019-12-26] MEDS ORDERED: Magnesium Sulfate IV 1GM/100ML 1 GM/100 ML BAG IV ONE (09:00)
[2019-12-26] MEDS ORDERED: Ondansetron 4 mg VIAL 2 MG/ML 2 ml VIAL IV PRN (09:06)
[2019-12-26] MEDS: KCL 20 MEQ/100 ML IVPREMIX 20 MEQ/100 ML BAG IV SCH ×2 (09:15→13:16)
[2019-12-26] MEDS ORDERED: Senna/Docusate 8.6/50 mg (NF) TAB PO PRN (09:38)
[2019-12-26] MEDS ORDERED: Nitroglycerin 0.3 mg TAB SL PRN (09:38)
[2019-12-26] MEDS ORDERED: Senna TAB 8.6 mg TAB PO PRN (10:18)
[2019-12-26] MEDS: HYDROmorphone 0.5 MG/0.5 ML SYRINGE IV SLOW PU PRN ×3 (13:16→22:34)
[2019-12-26] MEDS ORDERED: Metoprolol Tartrate 5 mg VIAL 5 ml VIAL (1 mg/ml) IV ONE (15:42)
[2019-12-26 16:54] LABS: BUN/Creatinine Ratio 10.3 (8-20); Calcium 8.6 mg/dL (8.6-10.3); EGFR African American 166.6 (>60); EGFR Non-African American 137.7 (>60); Magnesium 1.7 mg/dL (1.9-2.7); Potassium 3.3 mmol/L (3.5-5.0)
[2019-12-26] MEDS ORDERED: Magnesium Sulfate 2 gm BAG 2 GM/50 ML BAG IVPB ONE (18:53)
[2019-12-26] MEDS ORDERED: NS 0.9% 1000 ml BAG 1,000 ML IV ONE (18:59)
[2019-12-26] MEDS: LORazepam 0.5 mg TAB (*) PO SCH (21:02)
[2019-12-27] MEDS: KCL 20 MEQ/100 ML IVPREMIX 20 MEQ/100 ML BAG IV SCH ×4 (00:14→13:13)
[2019-12-27] MEDS: Prochlorperazine 5 mg/ml 2 ml VIAL (10 mg) IV PRN ×4 (02:39→21:43)
[2019-12-27] MEDS: HYDROmorphone 0.5 MG/0.5 ML SYRINGE IV SLOW PU PRN ×5 (05:55→21:18)
[2019-12-27] MEDS: LORazepam 0.5 mg TAB (*) PO SCH ×2 (08:11→20:08)
[2019-12-27] MEDS: Polyethylene Glycol 3350 17 GM PACKET PO SCH (09:18)
[2019-12-27] MEDS: Pentoxifylline CR 400 mg TAB 400 MG PO SCH ×3 (09:20→20:10)
[2019-12-27 09:23] LABS: ABS Basophils 0.1 10^3/ul (0-0.2); ABS Eosinophils 0.1 10^3/ul (0-0.6); ABS Lymphocytes 1.2 10^3/ul (1.0-4.8); ABS Monocytes 0.8 10^3/ul (0-0.8); Eosinophil % 1.2 %; Hematocrit 38 % (42-52); Hemoglobin 12.7 g/dL (14.0-18.0); Lymphocyte % 10.6 %; Mean Corpuscular HGB Conc 33 g/dL (31-36); Mean Corpuscular Hemoglobin 31 pg (27-31); Mean Corpuscular Volume 94 fL (80-94); Mean Platelet Volume 6.7 fL (7.4-10.4); Platelet Count 170 10^3/uL (150-450); Red Blood Count 4.08 10^6 /uL (4.18-5.48); Red Cell Distribution Width 13 % (10-15); White Blood Count 11.6 10^3/uL (3.5-10.8)
[2019-12-27 09:39] LABS: BUN/Creatinine Ratio 7.5 (8-20); Calcium 8.1 mg/dL (8.6-10.3); EGFR African American 184.9 (>60); EGFR Non-African American 152.8 (>60); Potassium 3.4 mmol/L (3.5-5.0)
[2019-12-27] MEDS: Enoxaparin 40 MG/0.4 ML SYR(*) SUBCUT SCH (10:32)
[2019-12-27 12:41] LABS: Urine Appearance Clear; Urine Bilirubin Negative (Negative); Urine Blood 2+ (Negative); Urine Color Yellow; Urine Glucose Negative (Negative); Urine Ketones Trace (Negative); Urine Nitrite Negative (Negative); Urine Protein Negative (Negative); Urine Specific Gravity 1.005 (1.010-1.030); Urine Urobilinogen Negative (Negative)
[2019-12-27 12:43] LABS: Urine Bacteria Absent (Absent); Urine Red Blood Cell 1+(3-5/hpf) (Absent); Urine White Blood Cell Trace(0-5/hpf) (Absent)
[2019-12-27] MEDS: D5W 1/2 NS KCl 20 meq 1000 ml 1,000 ML IV SCH (16:15)
[2019-12-28] MEDS: HYDROmorphone 0.5 MG/0.5 ML SYRINGE IV SLOW PU PRN ×5 (02:09→21:54)
[2019-12-28 05:58] LABS: ABS Basophils 0.1 10^3/ul (0-0.2); ABS Eosinophils 0.5 10^3/ul (0-0.6); ABS Lymphocytes 1.8 10^3/ul (1.0-4.8); ABS Monocytes 0.9 10^3/ul (0-0.8); Eosinophil % 5.1 %; Hematocrit 34 % (42-52); Hemoglobin 11.8 g/dL (14.0-18.0); Lymphocyte % 19.2 %; Mean Corpuscular HGB Conc 34 g/dL (31-36); Mean Corpuscular Hemoglobin 32 pg (27-31); Mean Corpuscular Volume 94 fL (80-94); Mean Platelet Volume 7.1 fL (7.4-10.4); Nucleated Red Blood Cells % 0.1; Platelet Count 189 10^3/uL (150-450); Red Blood Count 3.67 10^6 /uL (4.18-5.48); Red Cell Distribution Width 14 % (10-15); White Blood Count 9.2 10^3/uL (3.5-10.8)
[2019-12-28 06:12] LABS: BUN/Creatinine Ratio 9.3 (8-20); Calcium 8.1 mg/dL (8.6-10.3); EGFR Non-African American 149.6 (>60); Magnesium 1.9 mg/dL (1.9-2.7); Potassium 3.7 mmol/L (3.5-5.0)
[2019-12-28] MEDS: Prochlorperazine 5 mg/ml 2 ml VIAL (10 mg) IV PRN ×2 (08:10→16:21)
[2019-12-28] MEDS: D5W 1/2 NS KCl 20 meq 1000 ml 1,000 ML IV SCH (09:03)
[2019-12-28] MEDS: LORazepam 0.5 mg TAB (*) PO SCH ×2 (09:12→21:50)
[2019-12-28] MEDS: Pentoxifylline CR 400 mg TAB 400 MG PO SCH ×3 (09:12→21:51)
[2019-12-28] MEDS: Enoxaparin 40 MG/0.4 ML SYR(*) SUBCUT SCH (09:17)
[2019-12-28] MEDS: Polyethylene Glycol 3350 17 GM PACKET PO SCH (11:34)
[2019-12-28] MEDS ORDERED: Ondansetron 4 mg VIAL 2 MG/ML 2 ml VIAL IV PRN (16:06)
[2019-12-28] MEDS ORDERED: Prochlorperazine 5 mg/ml 2 ml VIAL (10 mg) IV PRN (16:08)
[2019-12-29] MEDS: Prochlorperazine 5 mg/ml 2 ml VIAL (10 mg) IV PRN ×4 (00:07→20:23)
[2019-12-29] MEDS: D5W 1/2 NS KCl 20 meq 1000 ml 1,000 ML IV SCH (01:20)
[2019-12-29] MEDS: HYDROmorphone 0.5 MG/0.5 ML SYRINGE IV SLOW PU PRN (03:31)
[2019-12-29] MEDS: Pentoxifylline CR 400 mg TAB 400 MG PO SCH ×3 (09:32→20:23)
[2019-12-29] MEDS: LORazepam 0.5 mg TAB (*) PO SCH ×2 (09:32→20:23)
[2019-12-29] MEDS: Polyethylene Glycol 3350 17 GM PACKET PO SCH (09:33)
[2019-12-29] MEDS: Enoxaparin 40 MG/0.4 ML SYR(*) SUBCUT SCH (09:36)
[2019-12-29] MEDS: Al Hydrox/Mg Hydrox/Simet LIQ 30 ML UDC PO PRN (11:23)
[2019-12-30] MEDS: Prochlorperazine 5 mg/ml 2 ml VIAL (10 mg) IV PRN ×3 (05:54→18:15)
[2019-12-30 06:13] LABS: ABS Eosinophils 0.4 10^3/ul (0-0.6); ABS Lymphocytes 2.1 10^3/ul (1.0-4.8); ABS Monocytes 0.8 10^3/ul (0-0.8); Eosinophil % 4.9 %; Hematocrit 32 % (42-52); Hemoglobin 11.2 g/dL (14.0-18.0); Lymphocyte % 25.5 %; Mean Corpuscular HGB Conc 35 g/dL (31-36); Mean Corpuscular Hemoglobin 32 pg (27-31); Mean Corpuscular Volume 93 fL (80-94); Mean Platelet Volume 6.6 fL (7.4-10.4); Nucleated Red Blood Cells % 0.1; Platelet Count 259 10^3/uL (150-450); Red Blood Count 3.48 10^6 /uL (4.18-5.48); Red Cell Distribution Width 13 % (10-15); White Blood Count 8.3 10^3/uL (3.5-10.8)
[2019-12-30 06:29] LABS: Calcium 8.2 mg/dL (8.6-10.3); EGFR African American 197.8 (>60); EGFR Non-African American 163.5 (>60); Magnesium 1.7 mg/dL (1.9-2.7); Potassium 3.7 mmol/L (3.5-5.0)
[2019-12-30] MEDS: Polyethylene Glycol 3350 17 GM PACKET PO SCH (09:13)
[2019-12-30] MEDS: Pentoxifylline CR 400 mg TAB 400 MG PO SCH ×3 (09:13→21:06)
[2019-12-30] MEDS: LORazepam 0.5 mg TAB (*) PO SCH ×2 (09:14→21:07)
[2019-12-30] MEDS: Enoxaparin 40 MG/0.4 ML SYR(*) SUBCUT SCH (09:27)
[2019-12-30] MEDS: Al Hydrox/Mg Hydrox/Simet LIQ 30 ML UDC PO PRN (10:22)
[2019-12-31] MEDS: Prochlorperazine 5 mg/ml 2 ml VIAL (10 mg) IV PRN ×4 (00:07→21:21)
[2019-12-31] MEDS: Polyethylene Glycol 3350 17 GM PACKET PO SCH (09:34)
[2019-12-31] MEDS: LORazepam 0.5 mg TAB (*) PO SCH ×2 (09:36→21:13)
[2019-12-31] MEDS: Pentoxifylline CR 400 mg TAB 400 MG PO SCH ×3 (10:52→21:12)
[2019-12-31] MEDS: Enoxaparin 40 MG/0.4 ML SYR(*) SUBCUT SCH (11:02)
[2020-01-01] MEDS: Prochlorperazine 5 mg/ml 2 ml VIAL (10 mg) IV PRN (06:09)
[2020-01-01] MEDS: LORazepam 0.5 mg TAB (*) PO SCH (10:01)
[2020-01-01] MEDS: Pentoxifylline CR 400 mg TAB 400 MG PO SCH ×2 (10:03→13:58)
[2020-01-01] MEDS: Enoxaparin 40 MG/0.4 ML SYR(*) SUBCUT SCH (10:05)
[2020-01-01] MEDS: Polyethylene Glycol 3350 17 GM PACKET PO SCH (10:05)
[2020-01-01 11:18] VITALS: BP 126/77
== END 2020-01-01 15:00 | DRG 327 ==
LOC: ED 08:34 → MEDTELE 12:22 → ICU 12-24 23:09 → SSU 12-25 05:53
PROVIDERS: ADMIT Internal Medicine; ATTEND Surgery